=== PATIENT | female | born 1940 | race Caucasian/White ===

== ENCOUNTER 2020-06-06 20:04 | Inpatient (IN) | payer MEDICARE, SELFPAY ==
--- NOTE | ~2020-06-06 | XR_ITS ---
XR shoulder LT min 2V DATE: 06/07/2020 01:28 INDICATION: Left shoulder pain following fall, injury TECHNIQUE: 5 views COMPARISON: None FINDINGS: There is glenohumeral joint space narrowing and very prominent hypertrophic spurring of the left humeral head. There is an approximately 1 cm loose body overlying the left shoulder inferior gl enohumeral area. There is degenerative change including joint space narrowing and spurring at the left acromioclavicul ar joint. No fracture or dislocation of the left elbow. No periosteal reaction or bone destruction. IMPRESSION: Severe left glenohumeral joint osteoarthritis with very prominent spurring of the left hu meral head Degenerative change at the left glenohumeral joint Reviewed, dictated and finalized at location A. IMPRESSION: Severe left glenohumeral joint osteoarthritis with very prominent s purring of the left humeral head Degenerative change at the left glenohumeral joint
--- NOTE | ~2020-06-06 | XR_ITS ---
EXAMINATION: XR hip LT 2V w AP pelvis INDICATION: Left hip pain TECHNIQUE: AP view the pelvis and two views of the left hip are obtained. COMPARISON: 04/20/2018 FINDINGS: Bone alignment is normal. There is no fracture. Moderate bilateral hip osteoarthritis is un changed. Phleboliths are noted in the pelvis. There are at least moderate lumbar spondylosis. IMPRESSION: 1. No acute osseous abnormality. Reviewed, dictated and finalized at location A.
--- NOTE | ~2020-06-06 | US_ITS ---
US venous doppler [facility] DATE: 06/07/2020 07:56 INDICATION: Left leg pain, edema. Elevated d-dimer. TECHNIQUE: Real-time and color flow imaging and Doppler analysis of the veins of the left lower extre mity COMPARISON: None FINDINGS: The left greater saphenous vein is patent. There is spontaneous and phasic flow and normal augmentation and color flow signal and normal compression of the veins of the left leg. IMPRESSION: No evidence of deep venous thrombosis of left lower extremity Reviewed, dictated and finalized at Location A. Reviewed, dictated and finalized at location A.
--- NOTE | ~2020-06-06 | XR_ITS ---
XR chest 1V portable 06/09/2020 06:30 Indication: Respiratory failure Procedure: AP portable chest Comparison: Comparison to multiple prior studies sequentially, with oldest reviewed study dated 04/14. Findings: Cardiomegaly. Large hiatal hernia. Left basilar airspace disease. Small left pleural effusi on. No pneumothorax. No significant edema. No acute osseous abnormality. Impression: 1: Left basilar airspace disease which may represent atelectasis or developing pneumonia. 2: Small left pleural effusion. 3: Cardiomegaly. 4: Large hiatal hernia. Reviewed, dictated and finalized at location A. Impression: 1: Left basilar airspace disease which may represent atelectasis or developing pneumonia. 2: Small left pleural effusion. 3: Cardiomegaly. 4: Large hiatal hernia.
--- NOTE | ~2020-06-06 | XR_ITS ---
EXAMINATION: XR chest 1V portable DATE: 06/07/2020 08:44 INDICATION: Shortness of breath. TECHNIQUE: A single frontal view of the chest was obtained. COMPARISON: Chest single view 06/06/2020, chest CT 06/06/2020 FINDINGS: There is a small left pleural effusion. There are airspace opacities in the lower lung zone s. No pneumothorax. Cardiomegaly is noted. There is a large hiatal hernia. IMPRESSION: 1. Airspace opacities in the lower lung zones with slight worsening on the right, consistent with ate lectasis or less likely pneumonia. 2. Stable small left pleural effusion. 3. Cardiomegaly. 4. Large hiatal hernia. Reviewed, dictated and finalized at location D. IMPRESSION: 1. Airspace opacities in the lower lung zones with slight worsening on the righ t, consistent with atelectasis or less likely pneumonia. 2. Stable small left pleural effusion. 3. Cardiomegaly. 4. Large hiatal hernia.
--- NOTE | ~2020-06-06 | XR_ITS ---
EXAMINATION: XR ankle LT min 3V DATE: 06/06/2020 21:26 INDICATION: Left ankle pain TECHNIQUE: Anteroposterior, lateral, mortise, and additional oblique view of the ankle were obtained. COMPARISON: 06/08/2017 FINDINGS: There is diffuse soft tissue swelling of ankle. Bone alignment is normal. No fracture is id entified. A plantar calcaneal enthesophyte is noted. IMPRESSION: 1. Ankle soft tissue swelling without acute osseous abnormality. Reviewed, dictated and finalized at location A.
--- NOTE | ~2020-06-06 | XR_ITS ---
EXAMINATION: XR chest 1V portable DATE: 06/12/2020 05:27 INDICATION: Respiratory failure. TECHNIQUE: A single frontal view of the chest was obtained. COMPARISON: Chest single view 06/11/2020, chest CT 06/06/2020 FINDINGS: There are airspace opacities at the lung bases. There is a small left pleural effusion. No pneumothorax. Cardiomegaly is noted. There is a large hiatal hernia. IMPRESSION: 1. Stable small left pleural effusion. 2. Airspace opacities at the lung bases with slight worsening on the right, consistent with atelectas is or less likely pneumonia. 3. Cardiomegaly. 4. Large hiatal hernia. Reviewed, dictated and finalized at location A. IMPRESSION: 1. Stable small left pleural effusion. 2. Airspace opacities at the lung bases with slight worsening on the right, con sistent with atelectasis or less likely pneumonia. 3. Cardiomegaly. 4. Large hiatal hernia.
--- NOTE | ~2020-06-06 | XR_ITS ---
XR chest 1V portable 06/08/2020 05:47 Indication: Respiratory failure Procedure: AP portable chest Comparison: Comparison to multiple prior studies sequentially, with oldest reviewed study dated 04/18. Findings: Persistent left basilar airspace disease. Small pleural effusions. Cardiomegaly. No edema o r pneumothorax. There are advanced degenerative changes of the shoulders. No acute osseous abnormalit y. Impression: 1: Left basilar airspace disease may represent pneumonia and/or atelectasis. Findings have progressed since 06/06/2020. 2: Small pleural effusions. 3: Cardiomegaly. Reviewed, dictated and finalized at location A. Impression: 1: Left basilar airspace disease may represent pneumonia and/or atelectasis. Fi ndings have progressed since 06/06/2020. 2: Small pleural effusions. 3: Cardiomegaly.
--- NOTE | ~2020-06-06 | CT_ITS ---
EXAMINATION: CTA chest PE protocol DATE: 06/06/2020 22:30 INDICATION: Chest pain and shortness of breath TECHNIQUE: Computed tomography angiography (CTA) of the chest was performed with 100 mL Omnipaque-350 intravenous contrast timed to evaluate the pulmonary arteries. Coronal maximum intensity projection 3D-reconstructions were created by the technologist. The dose-length product (DLP) was 1046.86 mGy-cm . Automated exposure control and iterative reconstruction technique were employed. COMPARISON: 04/18/2018 FINDINGS: The pulmonary arteries are well-opacified. No pulmonary embolism is identified. There are s mall pleural effusions with passive atelectasis in the lower lobes. No pneumothorax is identified. Ca rdiomegaly is noted. There is a moderate-sized hiatal hernia. A chronic T12 compression fracture is n oted. No pathologically enlarged thoracic lymph nodes are identified. There is advanced osteoarthriti s of the shoulders. A chronic 2 cm fluid density of the subcutaneous tissues in the left upper back h as the appearance of a sebaceous cyst. IMPRESSION: 1. No pulmonary embolism. 2. Cardiomegaly. 3. Small pleural effusions with passive atelectasis in the lower lobes. Reviewed, dictated and finalized at location A.
--- NOTE | ~2020-06-06 | XR_ITS ---
EXAMINATION: XR chest 1V portable INDICATION: Shortness of breath TECHNIQUE: Portable AP chest at 2058 hours COMPARISON: 04/14/2019 FINDINGS: There is stable cardiomegaly. No pleural effusion or pneumothorax is identified. There is c hronic mild atelectasis. IMPRESSION: 1. Stable cardiomegaly. Reviewed, dictated and finalized at location A. IMPRESSION: 1. Stable cardiomegaly.
--- NOTE | ~2020-06-06 | XR_ITS ---
EXAMINATION: XR knee LT min 4V DATE: 06/06/2020 21:26 INDICATION: Left knee pain TECHNIQUE: Four views of the left knee were obtained. COMPARISON: 04/18/2018 FINDINGS: Alignment is normal. No fracture or osteochondral lesion. There is moderate tricompartmenta l osteoarthritis. A small chronic knee joint effusion is present. Soft tissues are unremarkable. IMPRESSION: 1. No acute osseous abnormality. Reviewed, dictated and finalized at location A.
--- NOTE | ~2020-06-06 | US_ITS ---
EXAMINATION: US right upper quadrant DATE: 06/11/2020 14:06 INDICATION: Nausea. TECHNIQUE: Multiple grayscale and Doppler ultrasound images of the abdomen were obtained. COMPARISON: CT abdomen and pelvis 04/18/2018 FINDINGS: The visualized portion of the head of the pancreas is normal. The liver is normal without f ocal lesion. No liver surface nodularity. There is normal flow in main portal vein. The gallbladder i s absent. The common duct is normal and measures 3 mm. IMPRESSION: 1. Normal right upper quadrant ultrasound status post cholecystectomy. Reviewed, dictated and finalized at location A.
--- NOTE | ~2020-06-06 | XR_ITS ---
EXAMINATION: XR foot LT 2V DATE: 06/11/2020 14:07 INDICATION: Distal left foot pain post fall TECHNIQUE: Dorsoplantar and lateral views of the left foot were obtained. COMPARISON: 07/08/2017 FINDINGS: The region of the previous noted fracture at the base of the fifth metatarsal is obscured on the dors al plantar projection but the plantar aspect of the previously ununited fracture can be seen on the l ateral projection and appears to have healed in essentially anatomic alignment. No new fractures or m alalignment identified. Mild osteoarthritis at the first and fifth metatarsophalangeal and a few tars al metatarsal and distal interphalangeal joints. Small plantar calcaneal spur. Diffuse soft tissue sw elling about the left ankle. IMPRESSION: 1. Mild polyarticular osteoarthritis in the mid and forefoot. No acute osseous abnormality. Reviewed, dictated and finalized at location B.
--- NOTE | ~2020-06-06 | XR_ITS ---
EXAMINATION: XR chest 1V portable DATE: 06/10/2020 05:45 INDICATION: Respiratory failure. TECHNIQUE: A single frontal view of the chest was obtained. COMPARISON: Chest single view 06/09/2020, chest CT 06/06/2020 FINDINGS: There are small pleural effusions. There are airspace opacities at the lung bases. No pneum othorax. Cardiomegaly is noted. There is a large hiatal hernia. Calcified right hilar lymph nodes are consistent with old granulomatous disease. IMPRESSION: 1. Stable small pleural effusions. 2. Stable mild airspace opacities at the lung bases, likely atelectasis. 3. Large hiatal hernia. 4. Cardiomegaly. Reviewed, dictated and finalized at location A.
--- NOTE | ~2020-06-06 | CT_ITS ---
EXAMINATION: CT brain wo con INDICATION: Increasing weakness, fall COMPARISON: 04/18/2018 TECHNIQUE: Standard unenhanced head CT. The dose-length product (DLP) was 605.33 mGy-cm. The mA was a djusted according to patient size. Iterative reconstruction technique was employed. FINDINGS: There is no acute intraparenchymal hemorrhage. No evidence of mass lesion. No evidence of a cute infarction. There is mild periventricular and subcortical hypodensity probably related to small vessel ischemic disease. There is mild prominence of the sulci and ventricles related to cerebral atr ophy. Intracranial calcified cerebral atherosclerosis is noted. There are no extra-axial collections. There is no mass effect or midline shift. There are likely changes of cataract surgery on the right. There is mild mucosal thickening of the paranasal sinuses. IMPRESSION: 1. No acute intracranial abnormality. 2. Age related findings. Reviewed, dictated and finalized at location A.
--- NOTE | ~2020-06-06 | XR_ITS ---
EXAMINATION: XR chest 1V portable DATE: 06/11/2020 06:12 INDICATION: Respiratory failure. TECHNIQUE: A single frontal view of the chest was obtained. COMPARISON: Chest single view 06/10/2020 FINDINGS: There are airspace opacities at left lung base. There is a small left pleural effusion. No pneumothorax. There is a large hiatal hernia. Cardiomegaly is noted. Calcified right hilar lymph node s are consistent with old granulomatous disease. IMPRESSION: 1. Stable small left pleural effusion. 2. Stable airspace opacities at left lung base, likely atelectasis. 3. Large hiatal hernia. 4. Cardiomegaly. Reviewed, dictated and finalized at location A.
[2020-06-06 20:00] VITALS: BP 159/74; PULSE 58; RESP 17; TEMP 37.2; O2SAT 99
--- NOTE | 2020-06-06 20:10 | ECG_ITS ---
Measurements Intervals [place] Rate: 58 P: -50 MN: 133 QRS: -18 QRSD: 140 T: 78 QT: 440 QTc: 434 Interpretive Statements SINUS BRADYCARDIA ATRIAL PREMATURE COMPLEXES LEFT BUNDLE BRANCH BLOCK BASELINE ARTIFACT- I, II, AVR, V1-V2, V6 ABNORMAL ECG Electronically Signed On 06-07-2020 6:48:58 CDT by Rick Zapata D.O.
[2020-06-06 20:11] VITALS: PULSE 58
--- NOTE | 2020-06-06 20:11 | ED.SOB ---
HPI - SOB/Dyspnea General Chief Complaint: Weakness Stated Complaint: sob, fall Time Seen by Provider: 06/06/20 20:10 Source: patient, family and EMS Mode of arrival: EMS Limitations: no limitations History of Present Illness HPI Narrative: Patient is a 80-year-old female with a history of COPD, on chronic 2 L of oxygen, [place], hypertension, fibromyalgia, arthritis and chronic pain who presents for evaluation of myalgias, cough, subjective fever, nausea as well as burning with urination. Patient denies any dawit abdominal pain. She has been able to tolerate oral intake today. She reports that she fell approximately 8 days ago due to her weakness and she believes she twisted her ankle and has since had left-sided ankle swelling and left knee pain. Patient also reports intermittent chest pain and increased shortness of breath as well as cough with sputum production. Patient denies any recent medication changes. Chest pain usually is shorter lasting, at times described as pressure over the chest. At times it is sharp in nature. She reports that she always has chronic pain, and has a component of back pain as well. She denies jaw pain. No new shoulder pain. No loss of sense of taste or smell. No recent sick exposures or sick contacts. 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 Related Data Allergies Allergy/AdvReac Type Severity Reaction Status Date / Time AMITRIPTYLINE HCL Allergy Unknown Uncoded 04/14/19 13:48 CHLORDIAZEPOXIDE HCL Allergy Unknown Uncoded 04/14/19 13:48 Review of Systems Review of Systems: Narrative: CONSTITUTIONAL: Reports subjective fever and chills ENT: Denies rhinorrhea, congestion, sore throat, or otalgia. CARDIOVASCULAR: Reports intermittent chest pain and left lower extremity edema RESPIRATORY: Reports cough and shortness of breath GASTROINTESTINAL: Denies abdominal pain, reports nausea GENITOURINARY: Reports dysuria SKIN: Denies rash or itching. MUSCULOSKELETAL: Denies back pain, reports left ankle pain, left knee pain, left hip pain NEUROLOGIC: Denies headache, numbness,, reports diffuse weakness PSYCHIATRIC: History of depression [facility] Past Medical History Medical History Anxiety Chronic pain COPD (chronic obstructive pulmonary disease) Depression Diabetes Fibromyalgia Heart attack Hyperlipidemia Hypertension Pneumonia Recurrent urinary tract infection Social History Social History (Updated 10/08/20 @ 20:38 by Aimee Benoit MD) Smoking status: Current every day smoker Tobacco type: cigarettes Substance use: never Living arrangements: with family Gender identity (if verbalized by the patient): Female Exam Narrative: Exam Narrative: GENERAL: Awake, alert, conversant HEAD: Normocephalic, atraumatic. EYES: PERRLA and EOMI. ENT: Nares clear, no rhinorrhea or epistaxis. Mucous membranes moist. NECK: Supple. CHEST: Nasal cannula in place, no respiratory distress, breathing even and non labored HEART: Regular rate, sinus rhythm ABDOMEN:Non distended, non tender EXTREMITIES: Normal range of motion. Left ankle swelling, tenderness at the medial lateral malleolus of the left ankle. Mild ecchymoses. Extremities warm and well-perfused, DP pulse 2+. Intact distal sensation. Pain with palpation of the left patella. Pain with palpation of the left hip. No deformity noted. No calf tenderness. SKIN: Warm, dry, no rash. Scattered ecchymoses upper and lower extremities. NEURO:No focal deficits. Alert and oriented x3 Course Vital Signs Vital signs: Vital Signs Temperature 37.2 C 06/06/20 20:00 Pulse Rate 58 L 06/06/20 20:00 Respiratory Rate 17 06/06/20 20:00 Blood Pressure 159/74 H 06/06/20 20:00 Pulse Oximetry 99 06/06/20 20:00 Temperature 37.2 C 06/06/20 20:00 Pulse Rate 73 06/06/20 22:40 Respiratory Rate 18 06/06/20 22:40 Blood Pressure 130/108
--- NOTE | 2020-06-06 20:13 | PC.NURSE ---
BS 80
[2020-06-06 20:15] LABS: Glucose Point of Care 80 (65-105)
[2020-06-06 20:34] LABS: Basophils Percent Auto 0.2 % (0.2-1.2); Eosinophils Absolute Auto 0.2 K/mm3 (0-0.3); Eosinophils Percent Auto 3.1 % (0-4.4); Hematocrit 27.9 % (37.0-47.0); Hemoglobin 8.2 g/dL (12.0-15.0); Immature Granulocyte Absolute 0.04 K/mm3 (0.00-0.031); Immature Granulocyte Percent A 0.6 % (0-0.5); Lymphocytes Absolute Auto 0.68 K/mm3 (0.9-3.2); Mean Corpuscular HGB Conc 29.4 g/dl (32-36); Mean Corpuscular Hemoglobin 28.5 pg (26-34); Mean Corpuscular Volume 96.9 fl (80-100); Mean Platelet Volume 12.4 fl (7.4-10.4); Monocytes Absolute Auto 0.5 K/mm3 (0.1-0.6); Monocytes Percent Auto 8.2 % (2.6-8.5); Neutrophils Absolute Auto 4.8 K/mm3 (1.3-6.7); Neutrophils Percent Auto 76.9 % (45.5-73.1); Platelet Count Result 244 k/mm3 (150-375); Red Blood Count 2.88 M/mm3 (4.2-5.4); Red Cell Distribution Width 16.4 % (11.5-14.5); White Blood Count 6.2 K/mm3 (4.5-10.0)
[2020-06-06 20:42] LABS: Hypochromasia 2+ (NORMAL); Ovalocytes 1+ (NORMAL); Platelet Estimate Adequate (Adequate); Stomatocytes 1+ (NORMAL)
[2020-06-06 20:43] LABS: Prothrombin Time 12.9 Seconds (11.1-14.7)
[2020-06-06 20:44] LABS: Partial Thromboplastin Time 26.5 SECONDS (22.3-36.8)
[2020-06-06] MEDS: ONDANSETRON INJ 4 MG/2 ML VIAL IV PUSH (21:19)
[2020-06-06] MEDS: MORPHINE SULFATE (*CRX) 4 MG/ML INJ IV PUSH (21:19)
[2020-06-06 21:20] VITALS: BP 174/106; PULSE 61; RESP 22; O2SAT 100
[2020-06-06] MEDS: SODIUM CHLORIDE 0.9% IV 1,000 ML 999 ML IV CONT (21:20)
[2020-06-06 21:58] LABS: D Dimer 0.75 ug/mL (<0.48)
[2020-06-06 22:12] LABS: Anion Gap 14.99999 mmol/L (8-16); Blood Urea Nitrogen 47 mg/dL (7-17); Carbon Dioxide > 40 mmol/L (22-30); Chloride 92 mmol/L (98-107); Estimated CRCL calculation 48 ml/min; Estimated Glomerular Filt Rate 40; Glucose 41 mg/dL (65-105); Potassium 3.8 mmol/L (3.4-5.0); Sodium 147 mmol/L (137-145)
[2020-06-06 22:12] LABS: Add Urine Microscopic? YES; Appearance Urine Clear (Clear); Bacteria Urine Trace /hpf; Bilirubin Urine Negative (Negative); Color Urine Yellow (Yellow); Glucose Urine UA Negative (Negative); Hyaline Casts Urine 30-49 /lpf; Ketones Urine Negative (Negative); Leukocyte Esterase Ur Trace LEU/UL (Negative); Mucus Urine Rare /lpf; Nitrate Urine Negative (Negative); Protein Urine Negative (Negative); RBC Urine 0-2 /hpf (0-2); Renal Epithelial Cells Urine Rare /hpf (None Seen); Specific Grav Ur 1.014 (1.001-1.035); Squamous Epithelial Cell Urine Rare /hpf (Few); Urobilinogen Urine Negative mg/dL (<2.0)
[2020-06-06 22:18] LABS: Blood Urine Negative (Negative)
[2020-06-06 22:40] VITALS: BP 130/108; PULSE 73; RESP 18; O2SAT 97
[2020-06-06 23:07] LABS: Glucose Point of Care 90 (65-105)
[2020-06-07] VITALS (29 sets, daily range): BP systolic 126–155; BP diastolic 61–82; PULSE 55–130; RESP 17–28; TEMP 35.9–37.1; O2SAT 90–100; BMI 41.6
[2020-06-07 00:07] LABS: NT Pro B Type Natriuretic Pept 1880 PG/ML (5-100)
[2020-06-07] MEDS: FUROSEMIDE INJ 40 MG/4 ML VIAL 20 MG IV PUSH (00:21)
[2020-06-07 00:27] LABS: Glucose Point of Care 143 (65-105)
[2020-06-07] MEDS: ASPIRIN 81 MG CHEWABLE TABLET 324 MG PO (00:54)
--- NOTE | 2020-06-07 00:58 | PM.IMHP ---
H&P: HPI History of Present Illness Date/Time: 06/07/20 00:58 Chief complaint: Chest pain, elevated troponin, heart failure Narrative: This is a 80 year old morbidly obese female with a history of COPD, on 3L of chronic home oxygen, CAD s/p [place], s/p stents, HTN, CKD stage III, Fibromyalgia among other diagnosis who presented to the hospital with complaints of increased exertional shortness of breath, dry sporadic cough, LE swelling and burning urination. She reports that she fell on her left side about 1 week ago when her left leg gave out on her. Since then she has had left ankle pain. The patient also reports having intermittent chest pain that seems to be exertional in nature as it improves with rest. She has been having anginal symptoms for months and often takes nitroglycerin for it. She describes her chest pain pressure like. The patient last had stents placed in 1998. She has chronic lower extremity swelling which she believes has worsened. On further questioning she denies any significant fevers today, abdominal pain, diarrhea, nausea, vomiting, rectal bleeding, black stools or focal neurological symptoms. The patient was evaluated in the ER tonight and routine labs were obtained. She was found to have a mildly elevated troponin. EKG demonstrated a LBBB. ER provider consulted Cardiology. Review of Systems Review of Systems: All systems reviewed & are unremarkable except as noted in HPI and below PMFSH Past Medical History Medical History Anxiety Chronic pain COPD (chronic obstructive pulmonary disease) Depression Diabetes Fibromyalgia Heart attack Hyperlipidemia Hypertension Pneumonia Recurrent urinary tract infection Surgical History Surgical History History of coronary artery stent placement Family History Family History Mother Acute myocardial infarction Social History Social History Smoking status: Unknown if ever smoked Tobacco type: cigarettes Alcohol intake: never Substance use: never Living arrangements: with family Gender identity (if verbalized by the patient): Female Spiritual care concerns: No Meds Home Medications and Allergies Home Medications Medication Instructions Recorded Confirmed Type albuterol sulfate [ProAir HFA] 2 puff INHALATION DIRECTED PRN 06/07/20 06/07/20 History amlodipine 5 mg PO DAILY 06/07/20 06/07/20 History atorvastatin 80 mg PO DAILY 06/07/20 06/07/20 History biotin 1 mg PO DAILY 06/07/20 06/07/20 History calcitriol 0.25 mcg PO DAILY 06/07/20 06/07/20 History cephalexin 250 mg PO BID 06/07/20 06/07/20 History [id number]-oleic-dha [Adult 1 tablet PO DAILY 06/07/20 06/07/20 History [place] Plus DHA] cranberry extract [cranberry] 250 mg PO DAILY 06/07/20 06/07/20 History fenofibrate nanocrystallized 145 mg PO DAILY 06/07/20 06/07/20 History insulin glargine [Lantus Solostar 26 unit SUBCUT DAILY 06/07/20 06/07/20 History U-100 Insulin] insulin lispro [Humalog KwikPen 5 unit SUBCUT TIDWMEAL 06/07/20 06/07/20 History Insulin] isosorbide mononitrate 30 mg PO DAILY 06/07/20 06/07/20 History pantoprazole 40 mg PO DAILY 06/07/20 06/07/20 History pregabalin 200 mg PO DAILY 06/07/20 06/07/20 History tizanidine 4 mg PO DAILY 06/07/20 06/07/20 History torsemide 20 mg PO DAILY 06/07/20 06/07/20 History Allergies Allergy/AdvReac Type Severity Reaction Status Date / Time AMITRIPTYLINE HCL Allergy Unknown Uncoded 04/14/19 13:48 CHLORDIAZEPOXIDE HCL Allergy Unknown Uncoded 04/14/19 13:48 Vital Signs Vital Signs - 24 hr 06/06/20 20:00 06/06/20 20:11 06/06/20 21:20 Temperature 37.2 C Pulse Rate 58 L 58 L 61 Respiratory Rate 17 22 H Blood Pressure 159/74 H 174/106 H Pulse Oximetry 99 100 06/06/20 22:40 06/07/20
--- NOTE | 2020-06-07 03:51 | ADMGEN ---
This patient, Chandni Vicente, was admitted to IMU Room 211-01. Patient/family oriented to hospital policies and general routines including ID bracelet, bed and alarms, visiting hours, pain management, procedures, bathroom and other care routines, personal items, smoking policy, room service/diet, and visiting hours. Valuables list has been completed. Information on how to activate the Rapid Response Team has been discussed. Patient/Family are encouraged to report perceived risks to care and to ask questions if they do not understand what they are told or what they should do.
[2020-06-07 03:52] LABS: Glucose Point of Care 104 (65-105)
[2020-06-07] MEDS: ALBUTEROL SULFATE NEB 2.5 MG/0.5 ML INH 5 MG INHALATION ×4 (04:30→20:23)
[2020-06-07 06:36] LABS: Troponin I 0.063 ng/mL (0.000-0.034)
--- NOTE | 2020-06-07 07:09 | ECHO_ITS ---
Patient Info Name: Chandni Vicente Age: 80 years : 1940 Gender: Female Ht: 64 in Wt: 243 lbs BSA: 2.29 m2 HR: 70 bpm BP: 152 / 67 mmHg Heart Rhythm: Sinus Rhythm Technical Quality: Good Exam Date: 06/07/2020 10:15 AM Exam Location: [facility] Patient Status: Inpatient Admit Date: 06/07/2020 Staff Ordering Physician: Kaylene Ham MD (gilmer/john) Slasher Hand: Robbin Kessler RDCS Attending Provider: Theron Cho MD Exam Type: CA echo doppler color flow Study Info Indications R06.02 - Shortness of breath Complete two-dimensional, color flow and Doppler transthoracic echocardiogram is performed. History/Risk Factors Shortness of breath, CHF; COPD, CAD/VA, DM, HTN, CKD3, edema, trops. Summary 1. Complete two-dimensional, color flow and Doppler transthoracic echocardiogram is performed. 2. Left ventricular systolic function is normal, estimated at 55-60%. 3. Left atrial chamber dimension is mildly enlarged. 4. E/e' 16.7 is elevated consistent with elevated left atrial filling pressure. 5. The aortic valve is not well visualized but appears calcified. There is moderate aortic valve stenosis. Aortic valve max velocity 3.3 m/s, Mean gradient 18, valve area 1.6. 6. Moderate pulmonary hypertension, estimated pulmonary arterial systolic pressure is 60mmHg. 7. Dilated inferior vena cava (Patient on Bipap). Left Ventricle Left ventricular chamber dimension is normal. Left ventricular systolic function is normal, estimated at 55-60%. There is mildly increased left ventricular wall thickness. The left ventricular diastolic function is grade II diastolic dysfunction. E/e' 16.7 is elevated consistent with elevated left atrial filling pressure. Right Ventricle Right ventricular chamber dimension is normal. Right ventricular systolic function is normal. Left Atria Left atrial chamber dimension is mildly enlarged. Right Atria Right atrial chamber dimension is normal. Aortic Valve The aortic valve is not well visualized but appears calcified. There is moderate aortic valve stenosis. Aortic valve max velocity 3.3 m/s, Mean gradient 18, valve area 1.6. There is no aortic valve regurgitation. Pulmonic Valve The pulmonic valve is normal. There is no pulmonic valve stenosis. There is no pulmonic regurgitation. Mitral Valve The mitral valve has normal leaflets. There is no mitral valve stenosis. There is no mitral valve regurgitation. Tricuspid Valve The tricuspid valve leaflets are normal. There is trace tricuspid valve regurgitation. Moderate pulmonary hypertension, estimated pulmonary arterial systolic pressure is 60mmHg. Pericardium/Pleural The pericardium appears normal. There is no pericardial effusion. Pericardium is normal in appearance with no evidence for significant pericardial effusion. Inferior Vena Cava Dilated inferior vena cava (Patient on Bipap). Aorta The aortic root size at the sinus of Valsalva is normal. The prox ascending aorta size is normal. Left Ventricular Outflow Tract Name Value Normal LVOT 2D LVOT Diameter 2.0 cm LVOT Doppler L
[2020-06-07 07:21] LABS: Troponin I 0.049 ng/mL (0.000-0.034)
--- NOTE | 2020-06-07 07:56 | PM.CNCAR ---
Assessment and Plan Assessment and plan (1) Acute and chronic respiratory failure with hypercapnia: Code(s): J96.22 - Acute and chronic respiratory failure with hypercapnia Status: Acute Assessment and Plan: Multifactorial with h/o COPD, obesity, diastolic heart failure, likely RONAL Pco2 is 100 with AMS and tremors. Start BiPAP Will give lasix state now. Then start Lasix 40 mg IV BID (on Torsemide at home) Her trop is borderline elevated peaked at 0.06 in the setting of acute CHF and CKD. I doubt ACS. Will check 2D echo to assess LV function, PA pressure and rule out valvular disease She has history of PCI in the past. Unclear when. 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 Resume ASA, statin and antihypertensives (2) Elevated troponin: Code(s): R77.8 - Other specified abnormalities of plasma proteins Status: Acute Assessment and Plan: Borderline 0.06. EKG with LBBB. Need to get records. Follow 2D echo. She may eventually need ischemic evaluation in out patient settings if has not be done recently once stable and better compensated from CHF standpoint (3) Chest pain: Qualifiers: Chest pain type: unspecified Qualified Code(s): R07.9 - Chest pain, unspecified Code(s): R07.9 - Chest pain, unspecified Status: Acute Assessment and Plan: Resume home dose of Imdue and other antihypertensives (4) Heart failure: Qualifiers: Heart failure chronicity: unspecified Heart failure type: unspecified Qualified Code(s): I50.9 - Heart failure, unspecified Code(s): I50.9 - Heart failure, unspecified Status: Acute Assessment and Plan: Check 2D echo. Start Lasix (on Torsedmide at home) History of Present Illness History of Present Illness Consult date/time: 06/07/20 07:56 80 y/o female with h/o of oxygen dependent COPD (3 liters), CAD, HTN, DM, CHF, CKD stage III and obesity who presents with generalized body pain, chest pain and shortness of breath. At that time I walked to her room she was minimally responsive with generalized tremors. She has just returned from Ultrasound. Per nursing staff she was A&O X3 this am. Her O2 sat was initially in the 80s corrected to 99 with increasing her oxygen. Rapid response was called. Stat ABC showed her Ph 7.2 with Pco2 of 101. Bipap is being initiated. I ordered one time dose of Lasix IV She is not able to provide any history at this moment. Per ER note she had recent fall. She had back pain since. She also reported chest pain in ER with on and off nitro reponsive chest pain for sometime. She has history of stent. No records available at this time. Unclear when and where PCI was done. It was documented in ER that she is followed by [facility] subgrade roller operator. In ER she had CT chest, no PE, but has cardiomegaly and small pleural effusion. EKG: sinus rhythm/jv with PACs. LBBB Labs: hg 8.2, Cr 1.3, Trop 0.06-->0.04, NT pro BNP 1880 Unable to obtain social history Reason For Visit: Chest pain, elevated troponin, heart failure Review of Systems Review of Systems: ROS unobtainable: Yes unobtainable due to mental status Musculoskeletal: Musculoskeletal: Reports back pain PMFSH Past Medical History Medical History (Updated 06/07/20 @ 08:54 by Kaylene Ham MD) Anxiety Chronic pain COPD (chronic obstructive pulmonary disease) Depression Diabetes Fibromyalgia Heart attack Hyperlipidemia Hypertension Pneumonia Recurrent urinary tract infection Surgical History Surgical History (Updated 06/07/20 @ 01:13 by Theron Cho MD) History of coronary artery stent placement Family History Family History Mother Acute myocardial infarction Social History Social History Smoking status: Unknown if ever smoked Tobacco type: cigarettes Al
[2020-06-07 08:33] LABS: Alveolar/Arterial O2 Gradient 50.3 mmHg; Base Excess ABG 18.2 mEq/l (+/-2.0); Fractional Inspired Oxygen 32 %; HCO3 ABG 48.1 mEq/l (22.0-26.0); Oxygen Content ABG 11.9 %vol (16.0-22.0); Oxyhemoglobin 87.5 % THb (90.0-100.0); PO2 FiO2 Ratio Arterial Blood 1.84 %; Total Hemoglobin 9.6 g/dL (12.0-18.0); pH ABG 7.293 (7.350-7.450)
[2020-06-07 08:34] LABS: Device NASAL CANNULA; Modified Allen's Test Pass; Oxygen Saturation ABG 85.2 % (95.0-100.0); PCO2 ABG 101.6 mmHg (35.0-45.0); Site Drawn RIGHT RADIAL
[2020-06-07 08:41] LABS: Glucose Point of Care 86 (65-105)
[2020-06-07 08:58] LABS: Anion Gap 14.99999 mmol/L (8-16); Blood Urea Nitrogen 44 mg/dL (7-17); Carbon Dioxide > 40 mmol/L (22-30); Chloride 91 mmol/L (98-107); Estimated CRCL calculation 42 ml/min; Estimated Glomerular Filt Rate 43; Glucose 90 mg/dL (65-105); Potassium 4.2 mmol/L (3.4-5.0); Sodium 146 mmol/L (137-145)
[2020-06-07] MEDS: FUROSEMIDE INJ 40 MG/4 ML VIAL IV PUSH ×2 (09:00→17:17)
[2020-06-07 09:10] LABS: Troponin I 0.048 ng/mL (0.000-0.034)
--- NOTE | 2020-06-07 09:44 | PC.NURSE ---
Upon entering room patient was shaking and lethargic, Dr. Marquez was in room, called rapid response. BS was 86. Stat ABG's were done, STAT EKG, STAT Troponins, Patient put on continuos bipap by respiratory.
[2020-06-07 10:13] LABS: Alveolar/Arterial O2 Gradient 47.9 mmHg; Base Excess ABG 20.3 mEq/l (+/-2.0); Fractional Inspired Oxygen 30 %; HCO3 ABG 50.4 mEq/l (22.0-26.0); Oxygen Content ABG 9.7 %vol (16.0-22.0); Oxyhemoglobin 72.8 % THb (90.0-100.0); PO2 FiO2 Ratio Arterial Blood 1.38 %; Total Hemoglobin 9.5 g/dL (12.0-18.0); pH ABG 7.295 (7.350-7.450)
[2020-06-07 10:18] LABS: Modified Allen's Test Pass; Oxygen Saturation ABG 66.8 % (95.0-100.0); PO2 ABG 41.5 mmHg (80.0-100.0); Site Drawn LEFT RADIAL
[2020-06-07 10:19] LABS: Device BIPAP
[2020-06-07 10:20] LABS: Expiratory Pressure 6 cmH2O; Inspiratory Pressure 16 cmH2O
[2020-06-07 12:21] LABS: Glucose Point of Care 93 (65-105)
[2020-06-07 13:11] LABS: Alveolar/Arterial O2 Gradient 33.2 mmHg; Base Excess ABG 19.6 mEq/l (+/-2.0); Carboxyhemoglobin 0.1 % THb (0-2.0); Fractional Inspired Oxygen 30 %; HCO3 ABG 48.8 mEq/l (22.0-26.0); Methemoglobin ABG 0.2 %THb (0-1.5); Oxygen Content ABG 12.1 %vol (16.0-22.0); Oxygen Saturation ABG 91.1 % (95.0-100.0); Oxyhemoglobin 91.3 % THb (90.0-100.0); PO2 ABG 69.1 mmHg (80.0-100.0); Reduced Hemoglobin 8.4 %THb (0-5.0); Total Hemoglobin 9.4 g/dL (12.0-18.0); pH ABG 7.329 (7.350-7.450)
[2020-06-07 13:17] LABS: Device BIPAP; Modified Allen's Test Pass; Site Drawn RIGHT FEMORAL
[2020-06-07 13:19] LABS: Expiratory Pressure 6 cmH2O; Inspiratory Pressure 20 cmH2O
--- NOTE | 2020-06-07 13:34 | WPDCNINT ---
Assessment and Plan Assessment and plan (1) Acute and chronic respiratory failure with hypercapnia: Code(s): J96.22 - Acute and chronic respiratory failure with hypercapnia Status: Acute Assessment and Plan: Acute on chronic Respiratory failure which is multifactorial and secondary to congestive heart failure, COPD, obesity hypoventilation syndrome, . I saw patient this morning on step-down unit and adjusted the BiPAP to 20/6 and dropped the FiO2 down to 30% repeat ABG has improved patient is alert oriented x3 and follows commands Continue noninvasive positive-pressure ventilation support to prevent hypoxemia/hypercarbia and end organ damage. patient needs to be closely monitor in ICU and may need intubation Bronchodilators lower extremity Dopplers were negative for DVT CTA chest showed no PE and showed cardiomegaly with small effusions and atelectasis (2) CKD (chronic kidney disease): Code(s): N18.9 - Chronic kidney disease, unspecified Status: Acute Assessment and Plan: creatinine appears to be at baseline monitor electrolytes and urine output (3) Anemia: Qualifiers: Anemia type: other cause Other causes of anemia: other cause, not classified Qualified Code(s): D64.89 - Other specified anemias Code(s): D64.9 - Anemia, unspecified Status: Acute Assessment and Plan: transfusion not indicated at this time monitor (4) Elevated troponin: Code(s): R77.8 - Other specified abnormalities of plasma proteins Status: Acute Assessment and Plan: Patient seen by Cardiology aspirin statin echo (5) CHF (congestive heart failure): Code(s): I50.9 - Heart failure, unspecified Status: Acute Assessment and Plan: Lasix IV b.i.d. ordered (6) Diabetes mellitus: Code(s): E11.9 - Type 2 diabetes mellitus without complications Status: Acute Assessment and Plan: continue SSI DVT prophylaxis - heparin Nutrition - diabetic diet Code Status - I spoke to patient and patient's daughter at bedside. She requests to be full code at this time Total Critical Care Time - 45 minutes Due to a high probability of clinically significant, life threatening deterioration, the patient required my highest level of preparedness to intervene emergently and I personally spent this critical care time directly and personally managing the patient. This critical care time included obtaining a history; examining the patient; pulse oximetry; ordering and review of studies; arranging urgent treatment with development of a management plan; evaluation of patient's response to treatment; frequent reassessment; and discussions with other providers. It was exclusive of separately billable procedures and treating other patients and teaching time. Please see Assessment and Plan section and the rest of the note for further information on patient assessment and treatment School Administrator Consult Note Consult date: 06/07/20 Time Seen: 11:15 HPI: Chandni Vicente is a 80 year morbidly obese female with a history of COPD, on 3L of chronic home oxygen, CAD s/p SD, s/p stents, HTN, CKD stage III, CHF, Fibromyalgia among other diagnosis who presented to the hospital with complaints of increased exertional shortness of breath, dry sporadic cough, LE swelling and burning urination. She reports that she fell on her left side about 1 week ago when her left leg gave out on her. Since then she has had left ankle pain. patient also reported intermittent chest pain that seems to be exertional in nature as it improves with rest. She has been having anginal symptoms for months and often takes nitroglycerin for it. She describes her chest pain pressure like. The patient last had stents placed in 1998. She has chronic lower extremity swelling which she believes has worsened. patient was found to be having mildly elevated troponin. EKG demonstrated a LBBB
[2020-06-07 15:25] LABS: Glucose Point of Care 72 (65-105)
--- NOTE | 2020-06-07 16:50 | PC.NURSE ---
late entry 1435 moved to ICU 11 for closer observation.
[2020-06-07 17:00] LABS: Glucose Point of Care 80 (65-105)
[2020-06-07] MEDS: ACETAMINOPHEN 325 MG TABLET 650 MG PO (17:18)
--- NOTE | 2020-06-07 17:28 | PM.IMPN ---
Progress Note: A&P Assessment and Plan (1) Chest pain: Qualifiers: Chest pain type: unspecified Qualified Code(s): R07.9 - Chest pain, unspecified Code(s): R07.9 - Chest pain, unspecified Status: Acute Assessment and Plan: atypical does not appear cardiac and no ischemic changes on EKG. Troponin only mildly elevated and flat probably secondary to COPD exacerbation (2) COPD (chronic obstructive pulmonary disease): Qualifiers: COPD type: unspecified COPD Qualified Code(s): J44.9 - Chronic obstructive pulmonary disease, unspecified Code(s): J44.9 - Chronic obstructive pulmonary disease, unspecified Status: Inactive Assessment and Plan: acute on chronic respiratory failure with hypercapnia and hypoxia. CTA of the chest unremarkable and she has received IV Lasix and echocardiogram is pending. Responding minimally to BiPAP with pCO2 still 95 so transferred to ICU for further observation and possible mechanical ventilation (3) Chronic renal failure, stage 3 (moderate): Qualifiers: Chronic kidney disease stage 3 subtype: unspecified whether 3a or 3b Qualified Code(s): N18.30 - Chronic kidney disease, stage 3 unspecified Code(s): N18.30 - Chronic kidney disease, stage 3 unspecified Status: Acute Assessment and Plan: creatinine unchanged continue to monitor (4) Chronic anemia: Code(s): D64.9 - Anemia, unspecified Status: Acute Assessment and Plan: probable anemia of chronic disease but will check iron studies with B12 (5) Diabetes: Qualifiers: Diabetes mellitus type: type 2 Diabetes mellitus chcf insulin use: without terminologist use Diabetes mellitus complication status: without complication Qualified Code(s): E11.9 - Type 2 diabetes mellitus without complications Code(s): E11.9 - Type 2 diabetes mellitus without complications Status: Inactive Assessment and Plan: sliding scale and Lantus as needed (6) Hypertension: Qualifiers: Hypertension type: unspecified Qualified Code(s): I10 - Essential (primary) hypertension Code(s): I10 - Essential (primary) hypertension Status: Inactive Assessment and Plan: blood pressure adequate control continue amlodipine and nitrate (7) Hyperlipidemia: Qualifiers: Hyperlipidemia type: unspecified Qualified Code(s): E78.5 - Hyperlipidemia, unspecified Code(s): E78.5 - Hyperlipidemia, unspecified Status: Inactive Assessment and Plan: continue fenofibrate Subjective Date/time seen: 06/07/20 17:28 Interval history: date of visit 06/07. 80-year-old hypertensive type 2 diabetic with COPD on home O2 admitted with increasing shortness of breath and found to be in respiratory failure. CTA of the chest showed no infiltrates are or emboli in venous Doppler showed no DVT. She had mildly elevated troponin admitted to intermediate care for further evaluation. This a.m. became less responsive with CO2 rising and unresponsive to BiPAP and had to Tineo Destiney be transferred to ICU for closer observation Exam Narrative: Exam Narrative: blood pressure 132/86 pulse is 74 saturating 90% on BiPAP 16/02 with a rate of 20 and 30% FiO2 pupils equal reactive lungs prolonged expiratory phase with basilar crackles CV tachy no murmurs abdomen soft nontender extremities without edema distal pulse 2 + neuro with above lethargic but arousable and oriented x4 with diffuse jerking motions in her arms and legs Objective Data Vital Signs Vital Signs: Vital Signs - 24 hr 06/06/20 20:00 06/06/20 20:11 06/06/20 21:20 Temperature 37.2 C Pulse Rate 58 L 58 L 61 Respiratory Rate 17 22 H Blood Pressure 159/74 H 174/106 H Pulse Oximetry 99 100 06/06/20 22:40 06/07/20 00:41 06/07/20 03:38 Temperature 35.9 C L Pulse Rate 73 64 84 Respiratory Rate 18 22 H 20 Blood Pressure 130/108 H 1
[2020-06-07] MEDS: HEPARIN SODIUM 5,000 UNITS/ML VIAL 5000 UNITS SUB-Q (20:39)
[2020-06-07 20:48] LABS: Glucose Point of Care 86 (65-105)
[2020-06-08] VITALS (26 sets, daily range): BP systolic 108–164; BP diastolic 48–109; PULSE 60–101; RESP 16–27; TEMP 36.6–37.6; O2SAT 95–100
[2020-06-08] MEDS: ALBUTEROL SULFATE NEB 2.5 MG/0.5 ML INH 5 MG INHALATION ×4 (02:23→20:11)
[2020-06-08 03:10] LABS: Base Excess ABG 22.9 mEq/l (+/-2.0); Fractional Inspired Oxygen 30 %; HCO3 ABG 51.1 mEq/l (22.0-26.0); Methemoglobin ABG 0.2 %THb (0-1.5); Oxygen Content ABG 13.1 %vol (16.0-22.0); Oxygen Saturation ABG 91.3 % (95.0-100.0); Oxyhemoglobin 91.1 % THb (90.0-100.0); PO2 ABG 63.4 mmHg (80.0-100.0); PO2 FiO2 Ratio Arterial Blood 2.11 %; Reduced Hemoglobin 8.7 %THb (0-5.0); Total Hemoglobin 10.2 g/dL (12.0-18.0); pH ABG 7.421 (7.350-7.450)
[2020-06-08 03:14] LABS: Device NON-INVASIVE VENT; Modified Allen's Test Pass; PCO2 ABG 80.4 mmHg (35.0-45.0); Site Drawn LEFT RADIAL
[2020-06-08 03:16] LABS: Non-Invasive Expiratory Pressure 6 CMH2O; Non-Invasive Inspiratory Pressure 20 CMH2O; Non-Invasive Vent Rate 10 /MIN
--- NOTE | 2020-06-08 03:17 | PCRCNOTE ---
Pt started pulling BiPAP off around 0300. Unable to tolerate BiPAP at this time. Pt was placed on 2.5L O2 via NC. Will continue to monitor.
[2020-06-08 06:18] LABS: Hematocrit 29.5 % (37.0-47.0); Hemoglobin 8.4 g/dL (12.0-15.0); Mean Corpuscular HGB Conc 28.5 g/dl (32-36); Mean Corpuscular Hemoglobin 28.2 pg (26-34); Mean Platelet Volume 11.8 fl (7.4-10.4); Platelet Count Result 180 k/mm3 (150-375); Red Blood Count 2.98 M/mm3 (4.2-5.4); Red Cell Distribution Width 15.8 % (11.5-14.5); White Blood Count 5.7 K/mm3 (4.5-10.0)
[2020-06-08 06:47] LABS: Alanine Aminotransferase 20 U/L (4-35); Albumin Level 3.4 g/dL (3.5-5.1); Alkaline Phosphatase 51 U/L (38-126); Anion Gap 15.99999 mmol/L (8-16); Aspartate Amino Transferase 36 U/L (14-36); Bilirubin,Total 0.5 mg/dL (0.2-1.3); Blood Urea Nitrogen 35 mg/dL (7-17); Calcium 9.2 mg/dL (8.4-10.2); Carbon Dioxide > 40 mmol/L (22-30); Chloride 92 mmol/L (98-107); Estimated CRCL calculation 42 ml/min; Estimated Glomerular Filt Rate 43; Glucose 97 mg/dL (65-105); Magnesium 2.1 mg/dL (1.6-2.3); Potassium 3.6 mmol/L (3.4-5.0); Sodium 148 mmol/L (137-145)
[2020-06-08 07:56] LABS: Glucose Point of Care 98 (65-105)
[2020-06-08] MEDS: HEPARIN SODIUM 5,000 UNITS/ML VIAL 5000 UNITS SUB-Q ×2 (08:06→19:47)
[2020-06-08] MEDS: FUROSEMIDE INJ 40 MG/4 ML VIAL IV PUSH ×2 (08:06→17:34)
[2020-06-08 09:07] LABS: Glucose Point of Care 102 (65-105)
--- NOTE | 2020-06-08 09:49 | WPDINTPN ---
Progress Note: A&P Assessment and Plan (1) Acute and chronic respiratory failure with hypercapnia: Code(s): J96.22 - Acute and chronic respiratory failure with hypercapnia Status: Acute Assessment and Plan: Acute on chronic Respiratory failure which is multifactorial and secondary to congestive heart failure, COPD, obesity hypoventilation syndrome, . patient was transferred from step-down unit yesterday and placed on BiPAP to 20/6 and dropped the FiO2 down to 30% ABG improved this morning I will give patient a break from BiPAP at this time and monitor closely if she does well then will use it p.r.n. and nightly basis patient is alert oriented x3 and follows commands Bronchodilators continue Lasix lower extremity Dopplers were negative for DVT CTA chest showed no PE and showed cardiomegaly with small effusions and atelectasis (2) CKD (chronic kidney disease): Code(s): N18.9 - Chronic kidney disease, unspecified Status: Acute Assessment and Plan: creatinine appears to be at baseline monitor electrolytes and urine output (3) Anemia: Qualifiers: Anemia type: other cause Other causes of anemia: other cause, not classified Qualified Code(s): D64.89 - Other specified anemias Code(s): D64.9 - Anemia, unspecified Status: Acute Assessment and Plan: transfusion not indicated at this time monitor (4) Elevated troponin: Code(s): R77.8 - Other specified abnormalities of plasma proteins Status: Acute Assessment and Plan: Patient seen by Cardiology aspirin statin echo (5) CHF (congestive heart failure): Code(s): I50.9 - Heart failure, unspecified Status: Acute Assessment and Plan: Lasix IV b.i.d. ordered patient has good urine output monitor (6) Diabetes mellitus: Code(s): E11.9 - Type 2 diabetes mellitus without complications Status: Acute Assessment and Plan: continue SSI DVT prophylaxis - heparin Nutrition - diabetic diet Code Status - 06/07 I spoke to patient and patient's daughter at bedside. She requests to be full code at this time Total Critical Care Time - 30 minutes Due to a high probability of clinically significant, life threatening deterioration, the patient required my highest level of preparedness to intervene emergently and I personally spent this critical care time directly and personally managing the patient. This critical care time included obtaining a history; examining the patient; pulse oximetry; ordering and review of studies; arranging urgent treatment with development of a management plan; evaluation of patient's response to treatment; frequent reassessment; and discussions with other providers. It was exclusive of separately billable procedures and treating other patients and teaching time. Please see Assessment and Plan section and the rest of the note for further information on patient assessment and treatment Subjective Date/time seen: 06/08/20 Patient wore BiPAP last night. Denies any complaints this morning. Patient denies fever, chest pain, shortness of breath, cough, nausea, vomiting, abdominal pain, diarrhea, headache or constipation. Review of Systems Review of Systems: ROS unobtainable: Yes unobtainable due to medical condition ( BiPAP) Exam Narrative: Exam Narrative: General: Pt is alert awake and in NAD Lungs/Chest: Trachea central Clear BS B/L, No crackles or wheezing. BiPAP in place Cardiac: RRR. Normal S1 S2. No murmurs Circulation: Pedal pulses are intact and symmetrical. Abdomen: Normal bowel sounds. morbidly obese. Soft. NT. ND. Extremities: No clubbing, cyanosis or edema left more than right. Warm : Mercer in place Neurologic: Follows commands. Moves all 4 extremities PERRL alert oriented x3, random jerky movements of whole body which are not new as per patient's daughter Skin: No Rash Objective Data Vital Sig
[2020-06-08 10:54] LABS: Iron 44 ug/dL (37-170)
[2020-06-08 11:09] LABS: Percent Iron Saturation 9 % (20-50)
[2020-06-08] MEDS: POTASSIUM CHLORIDE 20 MEQ TABLET PO (11:22)
[2020-06-08] MEDS: ACETAMINOPHEN 325 MG TABLET 650 MG PO ×3 (11:23→19:47)
[2020-06-08 11:30] LABS: Glucose Point of Care 148 (65-105)
--- NOTE | 2020-06-08 13:20 | PCPTNOTE ---
PT/OT orders received for this patient...attempted eval, but patient is confused, not able to follow directions....will attempt eval tomorrow as appropriate
--- NOTE | 2020-06-08 13:21 | PCOTNOTE ---
OT evaluation attempted this date. Patient confused and unable to comprehend or follow simple commands at this time. nursing notified.Will attempt OT evaluation when medically appropriate.
--- NOTE | 2020-06-08 16:39 | PM.IMPN ---
Progress Note: A&P Assessment and Plan (1) Chest pain: Qualifiers: Chest pain type: unspecified Qualified Code(s): R07.9 - Chest pain, unspecified Code(s): R07.9 - Chest pain, unspecified Status: Acute Assessment and Plan: atypical does not appear cardiac and no ischemic changes on EKG. Troponin only mildly elevated and flat probably secondary to COPD exacerbation echo no wall motion abnormalities (2) COPD (chronic obstructive pulmonary disease): Qualifiers: COPD type: unspecified COPD Qualified Code(s): J44.9 - Chronic obstructive pulmonary disease, unspecified Code(s): J44.9 - Chronic obstructive pulmonary disease, unspecified Status: Chronic Assessment and Plan: acute on chronic respiratory failure with hypercapnia and hypoxia. CTA of the chest unremarkable and she has received IV Lasix and echocardiogram is pending. Responded to BiPAP with pCO2 now at 85 and on nasal cannula. Will transfer out of ICU the intermediate care pulmonary hypertension seen on echocardiogram estimated at 60 (3) Chronic renal failure, stage 3 (moderate): Qualifiers: Chronic kidney disease stage 3 subtype: unspecified whether 3a or 3b Qualified Code(s): N18.30 - Chronic kidney disease, stage 3 unspecified Code(s): N18.30 - Chronic kidney disease, stage 3 unspecified Status: Acute Assessment and Plan: creatinine unchanged continue to monitor at 1.2 actually better than has been in the past (4) Chronic anemia: Code(s): D64.9 - Anemia, unspecified Status: Chronic Assessment and Plan: thought initially probable anemia of chronic disease iron studies compatible with iron deficiency so will replenish with IV iron and check stool guaiacs hemoglobin 8.4 today. B12 level normal (5) Diabetes: Qualifiers: Diabetes mellitus type: type 2 Diabetes mellitus nitro worker insulin use: without nitro worker use Diabetes mellitus complication status: without complication Qualified Code(s): E11.9 - Type 2 diabetes mellitus without complications Code(s): E11.9 - Type 2 diabetes mellitus without complications Status: Chronic Assessment and Plan: sliding scale and Lantus as needed (6) Hypertension: Qualifiers: Hypertension type: unspecified Qualified Code(s): I10 - Essential (primary) hypertension Code(s): I10 - Essential (primary) hypertension Status: Chronic Assessment and Plan: blood pressure adequate control continue amlodipine and nitrate (7) Hyperlipidemia: Qualifiers: Hyperlipidemia type: unspecified Qualified Code(s): E78.5 - Hyperlipidemia, unspecified Code(s): E78.5 - Hyperlipidemia, unspecified Status: Chronic Assessment and Plan: continue fenofibrate Subjective Date/time seen: 06/08/20 16:39 Interval history: date of visit 06/08. 80-year-old hypertensive type 2 diabetic with COPD on home O2 admitted with increasing shortness of breath and found to be in respiratory failure. CTA of the chest showed no infiltrates are or emboli in venous Doppler showed no DVT. She had mildly elevated troponin admitted to intermediate care for further evaluation. a.m. 06/07 became less responsive with CO2 rising and unresponsive to BiPAP and had to be transferred to ICU for closer observation. off BiPAP and back on cannula today Exam Narrative: Exam Narrative: blood pressure 152/72 pulse is 66 saturating 95% on 1.5L NC pupils equal reactive lungs prolonged expiratory phase with left basilar crackles CV tachy no murmurs abdomen soft nontender extremities without edema distal pulse 2 + neuro lethargic but arousable and less abnormal twitching today Objective Data Vital Signs Vital Signs: Vital Signs - 24 hr 06/07/20 20:00 06/07/20 20:20 06/07/20 20:25 Temperature 37.1 C Pulse Rate 63 63 Respiratory Rate 18 19 17 Bl
[2020-06-08 17:17] LABS: Glucose Point of Care 166 (65-105)
[2020-06-08] MEDS: TIZANIDINE HCL 4 MG TABLET PO (19:47)
[2020-06-08 20:02] LABS: Glucose Point of Care 180 (65-105)
--- NOTE | 2020-06-08 20:20 | PM.PNCARD ---
Progress Note: A&P Assessment and Plan (1) Acute and chronic respiratory failure with hypercapnia: Code(s): J96.22 - Acute and chronic respiratory failure with hypercapnia Status: Acute Assessment and Plan: Multifactorial with h/o COPD, obesity, diastolic heart failure, likely RONAL PCo2 is 100 with AMS and tremors. Started BiPAP this admission. Will give lasix state now. Then start Lasix 40 mg IV BID (on Torsemide at home) Her trop is borderline elevated peaked at 0.063 in the setting of acute CHF and CKD. Doubt ACS. She had echocardiogram 06/07/2020: Left ventricular systolic function normal with left ventricular ejection fraction 55-60%, left ventricular size normal, mild left ventricular hypertrophy, E/E prime ratio greater than 15 consistent with elevated left atrial filling pressure, moderate aortic valve stenosis, moderate pulmonary hypertension with estimated pulmonary artery systolic pressure of 60 mm Hg, dilated IVC with patient on BiPAP. She has history of PCI in the past. Unclear when. 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 Patient remains confused about her prior information systems supervisor, and she denies any history of atrial fibrillation. Resuming low-dose aspirin but monitor hemoglobin given significant anemia. She is not a candidate for anticoagulation at present. She has an irregular rhythm with possible multifocal atrial rhythm in setting of her COPD versus atrial fibrillation with moderate ventricular response. She is currently not on a rate control agent. Consider addition of low-dose diltiazem pending blood pressure and heart rate trends. Obtain fasting lipid panel and consider statin. (2) Elevated troponin: Code(s): R77.8 - Other specified abnormalities of plasma proteins Status: Acute Assessment and Plan: Borderline troponin with peak elevation 0.06. EKG with LBBB. Need to get records. No focal wall motion abnormalities on echo this admission with normal left ventricular systolic function, but with evidence of increased left atrial pressure and moderate to severe pulmonary hypertension.. She may eventually need ischemic evaluation in out patient settings if has not be done recently once stable and better compensated from CHF standpoint (3) Chest pain: Qualifiers: Chest pain type: unspecified Qualified Code(s): R07.9 - Chest pain, unspecified Code(s): R07.9 - Chest pain, unspecified Status: Acute Assessment and Plan: Resumed home dose of Imdur and resume other antihypertensives as tolerated by blood pressure. (4) Heart failure: Qualifiers: Heart failure chronicity: unspecified Heart failure type: unspecified Qualified Code(s): I50.9 - Heart failure, unspecified Code(s): I50.9 - Heart failure, unspecified Status: Acute Assessment and Plan: She has acute on chronic heart failure with preserved ejection fraction with moderate severe pulmonary hypertension. Continue diuresis with IV Lasix with careful monitoring of renal function and electrolytes. Subjective Date/time seen: 06/08/20 20:20 Patient remains in ICU with transfer to step-down unit planned. Patient denies chest pain at present and reports improving dyspnea. She is resting comfortably in bed. She was on BiPAP overnight but off BiPAP during the day. Patient was seen and examined, chart reviewed, case discussed with nurse. Interval history: date of visit 06/08/20. 80-year-old hypertensive type 2 diabetic with COPD on home O2 admitted with increasing shortness of breath and found to be in respiratory failure. CTA of the chest showed no infiltrates or emboli and venous Doppler showed no DVT. She had mildly elevated troponin, admitted to intermediate care for further evaluation. a.m. 06/07 became less responsive with CO2 rising and unresponsive to BiPAP and had to be transferred to ICU for closer observati
[2020-06-09] VITALS (20 sets, daily range): BP systolic 89–169; BP diastolic 54–92; PULSE 57–107; RESP 16–24; TEMP 36.3–38.3; O2SAT 93–100
--- NOTE | 2020-06-09 01:35 | ADMIMU ---
This patient, Chandni Vicente, was transferred and placed in IMU Room 201-01 06/08/20 [id number]. Patient/family oriented to hospital policies and general routines including ID bracelet, bed and alarms, visiting hours, pain management, procedures, bathroom and other care routines, personal items, smoking policy, room service/diet, and visiting hours. Valuables list has been completed. Information on how to activate the Rapid Response Team has been discussed. Patient/Family are encouraged to report perceived risks to care and to ask questions if they do not understand what they are told or what they should do.
--- NOTE | 2020-06-09 01:58 | PC.NURSE ---
Late entry-This patient, Chandni Vicente, was received from ICU-11 on 06/08/20 at 2255. Personal belongings list checked and signed. Patient/family oriented to unit policies and routines
[2020-06-09] MEDS: ALBUTEROL SULFATE NEB 2.5 MG/0.5 ML INH 5 MG INHALATION ×4 (02:40→20:42)
[2020-06-09] MEDS: ACETAMINOPHEN 325 MG TABLET 650 MG PO (02:52)
[2020-06-09 04:11] LABS: Alveolar/Arterial O2 Gradient 49.1 mmHg; Base Excess ABG 19.6 mEq/l (+/-2.0); Carboxyhemoglobin 0.3 % THb (0-2.0); Fractional Inspired Oxygen 28 %; HCO3 ABG 45.3 mEq/l (22.0-26.0); Oxygen Content ABG 13.3 %vol (16.0-22.0); Oxygen Saturation ABG 96.4 % (95.0-100.0); Oxyhemoglobin 94.9 % THb (90.0-100.0); PCO2 ABG 59.3 mmHg (35.0-45.0); PO2 ABG 80.6 mmHg (80.0-100.0); PO2 FiO2 Ratio Arterial Blood 2.88 %; Reduced Hemoglobin 4.8 %THb (0-5.0); Total Hemoglobin 9.9 g/dL (12.0-18.0); pH ABG 7.501 (7.350-7.450)
[2020-06-09 04:12] LABS: Device NASAL CANNULA; Modified Allen's Test Pass; Site Drawn RIGHT RADIAL
[2020-06-09 04:21] LABS: IFOB Positive Control Positive; Immunochemical Fecal Occult Bl Negative (N)
[2020-06-09 04:56] LABS: Hematocrit 31.9 % (37.0-47.0); Hemoglobin 8.8 g/dL (12.0-15.0); Mean Corpuscular HGB Conc 27.6 g/dl (32-36); Mean Corpuscular Hemoglobin 27.8 pg (26-34); Mean Corpuscular Volume 100.6 fl (80-100); Mean Platelet Volume 12.1 fl (7.4-10.4); Platelet Count Result 160 k/mm3 (150-375); Red Blood Count 3.17 M/mm3 (4.2-5.4); Red Cell Distribution Width 15.5 % (11.5-14.5); White Blood Count 7.4 K/mm3 (4.5-10.0)
[2020-06-09 05:20] LABS: Alanine Aminotransferase 22 U/L (4-35); Albumin Level 3.6 g/dL (3.5-5.1); Alkaline Phosphatase 52 U/L (38-126); Anion Gap 10.99999 mmol/L (8-16); Aspartate Amino Transferase 49 U/L (14-36); Bilirubin,Total 0.5 mg/dL (0.2-1.3); Blood Urea Nitrogen 36 mg/dL (7-17); Carbon Dioxide > 40 mmol/L (22-30); Chloride 92 mmol/L (98-107); Cholesterol 119 mg/dL (0-200); Estimated CRCL calculation 43 ml/min; Estimated Glomerular Filt Rate 48; Glucose 157 mg/dL (65-105); HDL Direct 35 mg/dL; Potassium 3.1 mmol/L (3.4-5.0); Sodium 143 mmol/L (137-145); Triglycerides 286 mg/dL (<150)
[2020-06-09 05:22] LABS: LDL Cholesterol Direct 42 mg/dL
[2020-06-09 08:48] LABS: Glucose Point of Care 148 (65-105)
[2020-06-09] MEDS: ISOSORBIDE MONONITRATE 30 MG TAB.ER.24H PO ×2 (09:04→11:05)
[2020-06-09] MEDS: POTASSIUM CHLORIDE 20 MEQ TABLET 40 MEQ PO ×2 (09:04→17:51)
[2020-06-09] MEDS: FUROSEMIDE INJ 40 MG/4 ML VIAL IV PUSH ×2 (09:04→17:52)
[2020-06-09] MEDS: ASPIRIN 81 MG ENTERIC TABLET PO (09:04)
[2020-06-09] MEDS: HEPARIN SODIUM 5,000 UNITS/ML VIAL 5000 UNITS SUB-Q ×2 (09:29→21:28)
[2020-06-09] MEDS: PREGABALIN (*CRX) 50 MG CAPSULE 200 MG PO (09:31)
--- NOTE | 2020-06-09 11:03 | PCOTNOTE ---
Attempted OT eval 11:00; pt agitated and crying out in pain, not lucid at times. CHIEF CREW SCHEDULER reported pt did not tolerate bathing well. Spoke with doctor for hold orders until medical situation improves.
[2020-06-09] MEDS: INSULIN GLARGINE (*BKC) 100 UNITS/ML 10 UNITS SUB-Q (11:04)
[2020-06-09] MEDS: FENOFIBRATE NANOCRYSTALLIZED 145 MG TABLET PO (11:04)
[2020-06-09] MEDS: PANTOPRAZOLE 40 MG TABLET PO (11:04)
[2020-06-09] MEDS: calcitrioL 0.25 MCG CAPSULE PO (11:04)
[2020-06-09] MEDS: ATORVASTATIN 40 MG TABLET 80 MG PO (11:05)
[2020-06-09] MEDS: amLODIPine BESYLATE 5 MG TABLET PO (11:05)
[2020-06-09 12:33] LABS: Glucose Point of Care 148 (65-105)
--- NOTE | 2020-06-09 12:46 | PCPTNOTE ---
Attempted to evaluate this patient this morning...she was agitated, crying out in pain, tremulous...spoke with Dr Norton, who agreed that patient was not appropriate at this time, and said that he would issue HOLD PT/OT orders for this patient
[2020-06-09] MEDS: traMADol HCL (*CRX) 25 MG TABLET PO (15:17)
--- NOTE | 2020-06-09 15:52 | PM.IMPN ---
Progress Note: A&P Assessment and Plan (1) Chest pain: Qualifiers: Chest pain type: unspecified Qualified Code(s): R07.9 - Chest pain, unspecified Code(s): R07.9 - Chest pain, unspecified Status: Acute Assessment and Plan: atypical does not appear cardiac and no ischemic changes on EKG. Troponin only mildly elevated and flat probably secondary to COPD exacerbation echo no wall motion abnormalities (2) COPD (chronic obstructive pulmonary disease): Qualifiers: COPD type: unspecified COPD Qualified Code(s): J44.9 - Chronic obstructive pulmonary disease, unspecified Code(s): J44.9 - Chronic obstructive pulmonary disease, unspecified Status: Chronic Assessment and Plan: acute on chronic respiratory failure with hypercapnia and hypoxia. CTA of the chest unremarkable and she has received IV Lasix and echocardiogram normal EF with pul htn. Responded to BiPAP with pCO2 now at 59 and on nasal cannula. Will transfer out of IMU to medicine pulmonary hypertension seen on echocardiogram estimated at 60 repeat xray today persistant LLL opacity, atelectasis VS fluid VS infiltrate . will start ceftriaxone and doxycycline with her degree of copd (3) Chronic renal failure, stage 3 (moderate): Qualifiers: Chronic kidney disease stage 3 subtype: unspecified whether 3a or 3b Qualified Code(s): N18.30 - Chronic kidney disease, stage 3 unspecified Code(s): N18.30 - Chronic kidney disease, stage 3 unspecified Status: Acute Assessment and Plan: creatinine unchanged continue to monitor at 1.1 actually better than has been in the past (4) Chronic anemia: Code(s): D64.9 - Anemia, unspecified Status: Chronic Assessment and Plan: thought initially probable anemia of chronic disease iron studies compatible with iron deficiency so will replenish with IV iron and check stool guaiacs hemoglobin 8.8 today. B12 level normal (5) Diabetes: Qualifiers: Diabetes mellitus type: type 2 Diabetes mellitus half-way insulin use: without half-way use Diabetes mellitus complication status: without complication Qualified Code(s): E11.9 - Type 2 diabetes mellitus without complications Code(s): E11.9 - Type 2 diabetes mellitus without complications Status: Chronic Assessment and Plan: sliding scale and Lantus started at 10 Units qd today (6) Hypertension: Qualifiers: Hypertension type: unspecified Qualified Code(s): I10 - Essential (primary) hypertension Code(s): I10 - Essential (primary) hypertension Status: Chronic Assessment and Plan: blood pressure fair control continue amlodipine and nitrate (7) Hyperlipidemia: Qualifiers: Hyperlipidemia type: unspecified Qualified Code(s): E78.5 - Hyperlipidemia, unspecified Code(s): E78.5 - Hyperlipidemia, unspecified Status: Chronic Assessment and Plan: continue fenofibrate (8) CHF (congestive heart failure): Code(s): I50.9 - Heart failure, unspecified Status: Acute Assessment and Plan: probable acute on chronic diastolic HF , continue IV lasix and control bp Subjective Date/time seen: 06/09/20 15:52 Interval history: date of visit 06/09. 80-year-old hypertensive type 2 diabetic with COPD on home O2 admitted with increasing shortness of breath and found to be in respiratory failure. CTA of the chest showed no infiltrates are or emboli and venous Doppler showed no DVT. She had mildly elevated troponin admitted to intermediate care for further evaluation. a.m. 06/07 became less responsive with CO2 rising and unresponsive to BiPAP and had to be transferred to ICU for closer observation. off BiPAP and back on cannula 06/08 .mental status back to baseline Exam Narrative: Exam Narrative: blood pressure 164/82 pulse is 64 saturating 95% on 1.5L NC pupils equal reactive l
[2020-06-09 16:55] LABS: Glucose Point of Care 224 (65-105)
[2020-06-09] MEDS: INSULIN ASPART (*BKC) 100 UNITS/ML SUB-Q (17:48)
--- NOTE | 2020-06-09 18:11 | ECG_ITS ---
Measurements Intervals [place] Rate: 88 P: -21 [place]: 100 QRS: -19 QRSD: 145 T: 149 QT: 427 QTc: 518 Interpretive Statements SINUS OR ECTOPIC ATRIAL RHYTHM WITH SHORT [place] INTERVAL FREQUENT ATRIAL PREMATURE COMPLEXES LEFT BUNDLE BRANCH BLOCK ABNORMAL ECG Electronically Signed On 06-10-2020 6:45:21 CDT by Rick Zapata D.O.
[2020-06-09 20:06] LABS: Glucose Point of Care 222 (65-105)
[2020-06-09] MEDS: traMADol HCL (*CRX) 50 MG TABLET PO (21:27)
[2020-06-09] MEDS: TIZANIDINE HCL 4 MG TABLET PO (21:27)
[2020-06-09] MEDS: DOXYCYCLINE HYCLATE 100 MG TABLET PO (21:58)
[2020-06-10] VITALS (14 sets, daily range): BP systolic 142–160; BP diastolic 57–80; PULSE 58–88; RESP 16–23; TEMP 36.2–36.6; O2SAT 94–98
--- NOTE | 2020-06-10 00:20 | PC.NURSE ---
Patient complaining of discomfort on her nose. Mepilex applied to area and RT to bedside to change mask.
[2020-06-10] MEDS: ALBUTEROL SULFATE NEB 2.5 MG/0.5 ML INH 5 MG INHALATION ×4 (02:10→20:58)
[2020-06-10 04:42] LABS: Hematocrit 27.5 % (37.0-47.0); Hemoglobin 8.3 g/dL (12.0-15.0); Mean Corpuscular HGB Conc 30.2 g/dl (32-36); Mean Corpuscular Hemoglobin 28.4 pg (26-34); Mean Corpuscular Volume 94.2 fl (80-100); Platelet Count Result 189 k/mm3 (150-375); Red Blood Count 2.92 M/mm3 (4.2-5.4); Red Cell Distribution Width 16.1 % (11.5-14.5); White Blood Count 9.6 K/mm3 (4.5-10.0)
[2020-06-10 05:06] LABS: Alanine Aminotransferase 20 U/L (4-35); Albumin Level 3.4 g/dL (3.5-5.1); Alkaline Phosphatase 56 U/L (38-126); Anion Gap 8.99999 mmol/L (8-16); Aspartate Amino Transferase 43 U/L (14-36); Bilirubin,Total 0.4 mg/dL (0.2-1.3); Blood Urea Nitrogen 37 mg/dL (7-17); Calcium 8.8 mg/dL (8.4-10.2); Carbon Dioxide > 40 mmol/L (22-30); Chloride 94 mmol/L (98-107); Estimated CRCL calculation 32 ml/min; Estimated Glomerular Filt Rate 34; Glucose 108 mg/dL (65-105); Potassium 3.4 mmol/L (3.4-5.0); Sodium 143 mmol/L (137-145)
[2020-06-10 05:23] LABS: Alveolar/Arterial O2 Gradient 76.2 mmHg; Base Excess ABG 16.7 mEq/l (+/-2.0); Carboxyhemoglobin 0.3 % THb (0-2.0); Fractional Inspired Oxygen 30 %; HCO3 ABG 42.3 mEq/l (22.0-26.0); Methemoglobin ABG 0.2 %THb (0-1.5); Modified Allen's Test Pass; Oxygen Content ABG 12.2 %vol (16.0-22.0); Oxygen Saturation ABG 94.5 % (95.0-100.0); Oxyhemoglobin 91.6 % THb (90.0-100.0); PCO2 ABG 58.1 mmHg (35.0-45.0); PO2 ABG 69.4 mmHg (80.0-100.0); PO2 FiO2 Ratio Arterial Blood 2.31 %; Reduced Hemoglobin 7.9 %THb (0-5.0); Site Drawn RIGHT RADIAL; Total Hemoglobin 9.4 g/dL (12.0-18.0)
[2020-06-10 05:24] LABS: Device NON-INVASIVE VENT; Non-Invasive Vent Rate 10 /MIN
[2020-06-10 05:25] LABS: Non-Invasive Expiratory Pressure 6 CMH2O; Non-Invasive Inspiratory Pressure 20 CMH2O
[2020-06-10 07:45] LABS: Glucose Point of Care 107 (65-105)
[2020-06-10] MEDS: FENOFIBRATE NANOCRYSTALLIZED 145 MG TABLET PO (10:03)
[2020-06-10] MEDS: DOXYCYCLINE HYCLATE 100 MG TABLET PO ×2 (10:03→20:10)
[2020-06-10] MEDS: PANTOPRAZOLE 40 MG TABLET PO (10:03)
[2020-06-10] MEDS: ATORVASTATIN 40 MG TABLET 80 MG PO (10:03)
[2020-06-10] MEDS: ASPIRIN 81 MG ENTERIC TABLET PO (10:04)
[2020-06-10] MEDS: calcitrioL 0.25 MCG CAPSULE PO (10:04)
[2020-06-10] MEDS: ISOSORBIDE MONONITRATE 30 MG TAB.ER.24H PO (10:04)
[2020-06-10] MEDS: amLODIPine BESYLATE 5 MG TABLET PO (10:04)
[2020-06-10] MEDS: INSULIN GLARGINE (*BKC) 100 UNITS/ML 10 UNITS SUB-Q (10:07)
[2020-06-10] MEDS: HEPARIN SODIUM 5,000 UNITS/ML VIAL 5000 UNITS SUB-Q ×2 (10:07→20:10)
[2020-06-10] MEDS: POTASSIUM CHLORIDE 20 MEQ TABLET 40 MEQ PO (10:07)
[2020-06-10] MEDS: PREGABALIN (*CRX) 50 MG CAPSULE 200 MG PO (10:08)
[2020-06-10 14:11] LABS: Glucose Point of Care 194 (65-105)
[2020-06-10] MEDS: traMADol HCL (*CRX) 50 MG TABLET PO ×2 (14:25→20:11)
--- NOTE | 2020-06-10 16:17 | PM.PNCARD ---
Progress Note: A&P Assessment and Plan (1) Acute and chronic respiratory failure with hypercapnia: Code(s): J96.22 - Acute and chronic respiratory failure with hypercapnia Status: Acute Assessment and Plan: Multifactorial with h/o COPD, obesity, diastolic heart failure, likely RONAL PCo2 is 100 with AMS and tremors. Started BiPAP this admission. Will give lasix state now. Then start Lasix 40 mg IV BID (on Torsemide at home) Her trop is borderline elevated peaked at 0.063 in the setting of acute CHF and CKD. Doubt ACS. She had echocardiogram 06/07/2020: Left ventricular systolic function normal with left ventricular ejection fraction 55-60%, left ventricular size normal, mild left ventricular hypertrophy, E/E prime ratio greater than 15 consistent with elevated left atrial filling pressure, moderate aortic valve stenosis, moderate pulmonary hypertension with estimated pulmonary artery systolic pressure of 60 mm Hg, dilated IVC with patient on BiPAP. She has history of PCI in the past. Unclear when. Will need to get records once patient more awake and able to tell who is her cooler conveyor loader. Patient remains confused about her prior cooler conveyor loader, and she denies any history of atrial fibrillation. Resuming low-dose aspirin but monitor hemoglobin given significant anemia. She is not a candidate for anticoagulation at present. She has an irregular rhythm with possible multifocal atrial rhythm in setting of her COPD versus atrial fibrillation with moderate ventricular response. She is currently not on a rate control agent. Consider addition of low-dose diltiazem pending blood pressure and heart rate trends. Obtain fasting lipid panel and consider statin. (2) Elevated troponin: Code(s): R77.8 - Other specified abnormalities of plasma proteins Status: Acute Assessment and Plan: Borderline troponin with peak elevation 0.06. EKG with LBBB. Need to get records. No focal wall motion abnormalities on echo this admission with normal left ventricular systolic function, but with evidence of increased left atrial pressure and moderate to severe pulmonary hypertension.. She may eventually need ischemic evaluation in out patient settings if has not be done recently once stable and better compensated from CHF standpoint (3) Chest pain: Qualifiers: Chest pain type: unspecified Qualified Code(s): R07.9 - Chest pain, unspecified Code(s): R07.9 - Chest pain, unspecified Status: Acute Assessment and Plan: Resumed home dose of Imdur and resume other antihypertensives as tolerated by blood pressure. (4) Heart failure: Qualifiers: Heart failure chronicity: unspecified Heart failure type: unspecified Qualified Code(s): I50.9 - Heart failure, unspecified Code(s): I50.9 - Heart failure, unspecified Status: Acute Assessment and Plan: She has acute on chronic heart failure with preserved ejection fraction with moderate severe pulmonary hypertension. Continue diuresis with IV Lasix with careful monitoring of renal function and electrolytes. Subjective Date/time seen: 06/10/20 16:17 She feels slightly better today, seems to be more awake and alert now, less confused, no chest pain, shortness of breath is better still with some cough Exam Narrative: Exam Narrative: Minimally responsive, generalized tremors. More pronounced in upper exts. Eyes: Sclera: sclerae normal Neck: Neck: no JVD Carotids: no bruits Resp: Auscultation: diminished lung sounds Cardio: Rate: regular rate and not tachycardic Rhythm: regular rhythm Heart sounds: no gallops, Murmur heart sound present and no rubs Skin: General skin exam: normal color Neuro: Cranial nerves: Yes hard of hearing Extrem: General: normal to inspection and edema Psych: Affect: normal affect Objective Data Vital Signs Vital Signs: Vital Signs - 24 hr 06/09/20 19:49 06/09/20 20:00 06/09/20 2
[2020-06-10 17:41] LABS: Glucose Point of Care 120 (65-105)
--- NOTE | 2020-06-10 18:01 | PM.IMPN ---
Progress Note: A&P Assessment and Plan (1) Chest pain: Qualifiers: Chest pain type: unspecified Qualified Code(s): R07.9 - Chest pain, unspecified Code(s): R07.9 - Chest pain, unspecified Status: Acute Assessment and Plan: atypical does not appear cardiac and no ischemic changes on EKG. Troponin only mildly elevated and flat probably secondary to COPD exacerbation echo no wall motion abnormalities with normal EF (2) COPD (chronic obstructive pulmonary disease): Qualifiers: COPD type: unspecified COPD Qualified Code(s): J44.9 - Chronic obstructive pulmonary disease, unspecified Code(s): J44.9 - Chronic obstructive pulmonary disease, unspecified Status: Chronic Assessment and Plan: acute on chronic respiratory failure with hypercapnia and hypoxia. CTA of the chest unremarkable and she has received IV Lasix and echocardiogram normal EF with pul htn. Responded to BiPAP with pCO2 now at 58 and on nasal cannula. transferred out of IMU to medicine 06/09 pulmonary hypertension seen on echocardiogram estimated at 60 repeat xray 06/09 persistant LLL opacity, atelectasis VS fluid VS infiltrate . started ceftriaxone and doxycycline with her degree of copd and low grade temp BC so for NG (3) Chronic renal failure, stage 3 (moderate): Qualifiers: Chronic kidney disease stage 3 subtype: unspecified whether 3a or 3b Qualified Code(s): N18.30 - Chronic kidney disease, stage 3 unspecified Code(s): N18.30 - Chronic kidney disease, stage 3 unspecified Status: Acute Assessment and Plan: creatinine back up to 1.5 so holding lasix with that and rising c02 (4) Chronic anemia: Code(s): D64.9 - Anemia, unspecified Status: Chronic Assessment and Plan: thought initially probable anemia of chronic disease but iron studies compatible with iron deficiency so replenished with IV iron(900 mg total) and stool guaiacs is negative for blood hemoglobin 8.3 today. B12 level normal (5) Diabetes: Qualifiers: Diabetes mellitus type: type 2 Diabetes mellitus manager long term care insulin use: without manager long term care use Diabetes mellitus complication status: without complication Qualified Code(s): E11.9 - Type 2 diabetes mellitus without complications Code(s): E11.9 - Type 2 diabetes mellitus without complications Status: Chronic Assessment and Plan: sliding scale and Lantus started at 10 Units qd today (6) Hypertension: Qualifiers: Hypertension type: unspecified Qualified Code(s): I10 - Essential (primary) hypertension Code(s): I10 - Essential (primary) hypertension Status: Chronic Assessment and Plan: blood pressure fair control continue amlodipine and nitrate (7) Hyperlipidemia: Qualifiers: Hyperlipidemia type: unspecified Qualified Code(s): E78.5 - Hyperlipidemia, unspecified Code(s): E78.5 - Hyperlipidemia, unspecified Status: Chronic Assessment and Plan: continue fenofibrate (8) CHF (congestive heart failure): Code(s): I50.9 - Heart failure, unspecified Status: Acute Assessment and Plan: probable acute on chronic diastolic HF , continue IV lasix and control bp Subjective Date/time seen: 06/10/20 18:01 Interval history: date of visit 06/10. 80-year-old hypertensive type 2 diabetic with COPD on home O2 admitted with increasing shortness of breath and found to be in respiratory failure. CTA of the chest showed no infiltrates or emboli and venous Doppler showed no DVT. She had mildly elevated troponin admitted to intermediate care for further evaluation. a.m. 06/07 became less responsive with CO2 rising and unresponsive to BiPAP and had to be transferred to ICU for closer observation. off BiPAP and back on cannula 06/08 .mental status back to baseline Exam Narrative: Exam Narrative: blood pressure 142/64 puls
--- NOTE | 2020-06-10 18:25 | PC.NURSE ---
This patient, Chandni Vicente, was transferred to [facility] on 06/10/20 at 1813. Personal belongings sent with patient. Report given to Farrah JUDGE. Appropriate documentation sent with patient.
--- NOTE | 2020-06-10 18:48 | PC.NURSE ---
This patient, Chandni Vicente, was received from [ IMU] on 06/10/20 at 1840. Personal belongings list checked and signed. Patient/family oriented to unit policies and routines
[2020-06-10] MEDS: TIZANIDINE HCL 4 MG TABLET PO (20:10)
[2020-06-10 20:38] LABS: Glucose Point of Care 206 (65-105)
[2020-06-11] VITALS (20 sets, daily range): BP systolic 120–144; BP diastolic 48–87; PULSE 50–109; RESP 16–20; TEMP 35.9–36.5; O2SAT 94–98
[2020-06-11] MEDS: traMADol HCL (*CRX) 50 MG TABLET PO ×3 (01:56→14:39)
[2020-06-11] MEDS: ALBUTEROL SULFATE NEB 2.5 MG/0.5 ML INH 5 MG INHALATION ×4 (02:49→21:11)
[2020-06-11] MEDS: NITROGLYCERIN SL 0.4 MG TABLET SUBLINGUAL ×2 (05:26→05:35)
--- NOTE | 2020-06-11 05:34 | ECG_ITS ---
Measurements Intervals [place] Rate: 68 P: -51 HI: 133 QRS: -28 QRSD: 150 T: 75 QT: 475 QTc: 507 Interpretive Statements ECTOPIC ATRIAL RHYTHM LEFT BUNDLE BRANCH BLOCK ABNORMAL ECG Electronically Signed On 06-11-2020 7:08:50 CDT by Rick Zapata D.O.
--- NOTE | 2020-06-11 05:44 | PC.NURSE ---
0522 dr. belcher here to examine patient. labs drawn
--- NOTE | 2020-06-11 05:45 | PCDIET ---
states pain went from rating of 6 to 4 after 2nd nitro
[2020-06-11 06:01] LABS: Hematocrit 27.1 % (37.0-47.0); Hemoglobin 8.1 g/dL (12.0-15.0); Mean Corpuscular HGB Conc 29.9 g/dl (32-36); Mean Corpuscular Hemoglobin 28.2 pg (26-34); Mean Corpuscular Volume 94.4 fl (80-100); Mean Platelet Volume 12.2 fl (7.4-10.4); Platelet Count Result 197 k/mm3 (150-375); Red Blood Count 2.87 M/mm3 (4.2-5.4); Red Cell Distribution Width 15.9 % (11.5-14.5); White Blood Count 8.3 K/mm3 (4.5-10.0)
[2020-06-11 06:30] LABS: Alanine Aminotransferase 20 U/L (4-35); Albumin Level 3.3 g/dL (3.5-5.1); Alkaline Phosphatase 56 U/L (38-126); Anion Gap 8.99999 mmol/L (8-16); Aspartate Amino Transferase 37 U/L (14-36); Bilirubin,Total 0.4 mg/dL (0.2-1.3); Blood Urea Nitrogen 40 mg/dL (7-17); Calcium 8.7 mg/dL (8.4-10.2); Carbon Dioxide > 40 mmol/L (22-30); Chloride 94 mmol/L (98-107); Estimated CRCL calculation 34 ml/min; Estimated Glomerular Filt Rate 36; Glucose 113 mg/dL (65-105); Magnesium 2.1 mg/dL (1.6-2.3); Potassium 3.5 mmol/L (3.4-5.0); Sodium 143 mmol/L (137-145)
[2020-06-11 06:32] LABS: Troponin I 0.068 ng/mL (0.000-0.034)
[2020-06-11 07:28] LABS: Glucose Point of Care 105 (65-105)
[2020-06-11] MEDS: amLODIPine BESYLATE 5 MG TABLET PO (08:05)
[2020-06-11] MEDS: ASPIRIN 81 MG ENTERIC TABLET PO (08:06)
[2020-06-11] MEDS: DOXYCYCLINE HYCLATE 100 MG TABLET PO ×2 (08:06→20:47)
[2020-06-11] MEDS: FENOFIBRATE NANOCRYSTALLIZED 145 MG TABLET PO (08:06)
[2020-06-11] MEDS: ISOSORBIDE MONONITRATE 30 MG TAB.ER.24H PO (08:06)
[2020-06-11] MEDS: ATORVASTATIN 40 MG TABLET 80 MG PO (08:06)
[2020-06-11] MEDS: calcitrioL 0.25 MCG CAPSULE PO (08:06)
[2020-06-11] MEDS: PREGABALIN (*CRX) 50 MG CAPSULE 200 MG PO (08:07)
[2020-06-11] MEDS: PANTOPRAZOLE 40 MG TABLET PO (08:07)
[2020-06-11] MEDS: INSULIN GLARGINE (*BKC) 100 UNITS/ML 10 UNITS SUB-Q (08:08)
[2020-06-11] MEDS: HEPARIN SODIUM 5,000 UNITS/ML VIAL 5000 UNITS SUB-Q ×2 (09:38→20:48)
[2020-06-11] MEDS: ONDANSETRON INJ 4 MG/2 ML VIAL IV PUSH ×2 (09:42→14:39)
[2020-06-11 11:30] LABS: Glucose Point of Care 167 (65-105)
--- NOTE | 2020-06-11 12:39 | PM.IMPN ---
Progress Note: A&P Assessment and Plan (1) Chest pain: Qualifiers: Chest pain type: unspecified Qualified Code(s): R07.9 - Chest pain, unspecified Code(s): R07.9 - Chest pain, unspecified Status: Acute Assessment and Plan: Patient continues to have CP. [place] to be atypical but Trop higher now but no ischemic changes on EKG. Echo (06/07) showing EF 55-60% with Grade 2 diastolic dysfunction, moderate and moderate pulmonary HTN. Symptoms appear to improve with NTG. Later she had n/v. Will check Lipase and RUQ US. (2) COPD (chronic obstructive pulmonary disease): Qualifiers: COPD type: unspecified COPD Qualified Code(s): J44.9 - Chronic obstructive pulmonary disease, unspecified Code(s): J44.9 - Chronic obstructive pulmonary disease, unspecified Status: Chronic Assessment and Plan: Acute on chronic respiratory failure with hypercapnia and hypoxia. ABG 06/07 showing 7.29/106/41. CTA of the chest unremarkable. She was on IV Lasix that stopped 06/09. Echocardiogram as above. Responded well to BiPAP with pCO2 now at 58 on 06/10 ABG. Only used the BiPAP for a few hours last night. Remains on nasal cannula. Transferred out of IMU to medicine 06/09. Repeat xray 06/09 persistent LLL opacity, atelectasis VS fluid VS infiltrate so started ceftriaxone and doxycycline (Day 3) with her degree of copd and low grade temp. BCx NGTD. CXR today reviewed showing persistent LLL airspace disease likely atelectasis. (3) Chronic renal failure, stage 3 (moderate): Qualifiers: Chronic kidney disease stage 3 subtype: unspecified whether 3a or 3b Qualified Code(s): N18.30 - Chronic kidney disease, stage 3 unspecified Code(s): N18.30 - Chronic kidney disease, stage 3 unspecified Status: Acute Assessment and Plan: Creatinine back up to 1.5 on 06/10 but better today. Lasix held the other day. Contineu to follow. (4) CHF (congestive heart failure): Code(s): I50.9 - Heart failure, unspecified Status: Acute Assessment and Plan: As above. Probably mild acute on chronic diastolic HF. Treated with IV lasix but now off. Continue to follow. (5) Chronic anemia: Code(s): D64.9 - Anemia, unspecified Status: Chronic Assessment and Plan: Iron studies compatible with iron deficiency anemia so replenished with IV iron(900 mg total). Stool guaiac is negative for blood. Hgb low but stable in the 8 range. B12 level normal. Start oral iron once off Doxy. Continue Protonix. (6) Foot pain, left: Code(s): M79.672 - Pain in left foot Status: Acute Assessment and Plan: Left foot pain after a fall priro to admission. Wasn't bothering her much until today. Left ankle xray on admission showing no fracture. Check left foot xray. (7) Diabetes: Qualifiers: Diabetes mellitus complication status: without complication Diabetes mellitus long-term insulin use: without long-term use Diabetes mellitus type: type 2 Qualified Code(s): E11.9 - Type 2 diabetes mellitus without complications Code(s): E11.9 - Type 2 diabetes mellitus without complications Status: Chronic Assessment and Plan: A1c 5.4 in March. The patient's blood glucose was reviewed on 06/11 Glucose remains mostly well controlled. Continue AccuCheks covering with sliding scale. Hypoglycemia protocol available as needed. Continue Lantus started at 10 Units qd began 06/09 (8) Hypertension: Qualifiers: Hypertension type: unspecified Qualified Code(s): I10 - Essential (primary) hypertension Code(s): I10 - Essential (primary) hypertension Status: Chronic Assessment and Plan: Patient's blood pressure was reviewed on 06/11 Blood pressure remains well controlled. Will continue current medications with amlodipine and Imdur (9) Hyperlipidemia: Qualifiers:
[2020-06-11 13:25] LABS: Lipase 181 U/L (23-300)
[2020-06-11 16:23] LABS: Glucose Point of Care 96 (65-105)
--- NOTE | 2020-06-11 18:30 | PC.NURSE ---
Patient complaining of left sided chest pain (behind her breast) - sudden sharp pains that come and go. Patient jumping off and on with the pains. Daughter at bedside. Patient also c/o nausea (just finished her supper). C/o chronic back pain and mentions that she gets nauseated after eating at times and has to vomit when at home. VSS - HR 60 and telemetry unchanged. O2 sat 97% on 1 liter per nasal cannula. Temp 97.2. B/P 130s/60s. RR 16. Dr. Stahl notified of above complaints. Order received for [place] x1 in one hour after stomach settles from [facility].
[2020-06-11] MEDS: HYDROcodone/acetaminophen (*CRX) 5-325 MG TABLET 1 TAB PO (20:47)
[2020-06-11] MEDS: TIZANIDINE HCL 4 MG TABLET PO (20:47)
[2020-06-11 21:14] LABS: Glucose Point of Care 222 (65-105)
[2020-06-12] VITALS (19 sets, daily range): BP systolic 121–155; BP diastolic 41–52; PULSE 45–94; RESP 11–20; TEMP 36–36.8; O2SAT 96–98
[2020-06-12] MEDS: traMADol HCL (*CRX) 50 MG TABLET PO (00:13)
[2020-06-12] MEDS: ALBUTEROL SULFATE NEB 2.5 MG/0.5 ML INH 5 MG INHALATION ×4 (02:25→21:13)
[2020-06-12 08:01] LABS: Glucose Point of Care 93 (65-105)
[2020-06-12 08:22] LABS: Hematocrit 27.3 % (37.0-47.0); Hemoglobin 8.1 g/dL (12.0-15.0); Mean Corpuscular HGB Conc 29.7 g/dl (32-36); Mean Corpuscular Hemoglobin 29.1 pg (26-34); Mean Corpuscular Volume 98.2 fl (80-100); Mean Platelet Volume 12.8 fl (7.4-10.4); Platelet Count Result 189 k/mm3 (150-375); Red Blood Count 2.78 M/mm3 (4.2-5.4); Red Cell Distribution Width 16.3 % (11.5-14.5); White Blood Count 6.7 K/mm3 (4.5-10.0)
[2020-06-12 08:35] LABS: Albumin Level 3.3 g/dL (3.5-5.1)
[2020-06-12 08:37] LABS: Alanine Aminotransferase 21 U/L (4-35); Alkaline Phosphatase 39 U/L (38-126); Anion Gap 6.99999 mmol/L (8-16); Aspartate Amino Transferase 47 U/L (14-36); Bilirubin,Total 0.5 mg/dL (0.2-1.3); Blood Urea Nitrogen 56 mg/dL (7-17); Calcium 8.3 mg/dL (8.4-10.2); Carbon Dioxide > 40 mmol/L (22-30); Chloride 93 mmol/L (98-107); Creatine Kinase 72 U/L (30-135); Estimated CRCL calculation 29 ml/min; Estimated Glomerular Filt Rate 29; Glucose 99 mg/dL (65-105); Magnesium 2.1 mg/dL (1.6-2.3); Phosphorus 5.1 mg/dL (2.5-4.5); Potassium 4.1 mmol/L (3.4-5.0); Sodium 140 mmol/L (137-145)
[2020-06-12] MEDS: ASPIRIN 81 MG ENTERIC TABLET PO (09:47)
[2020-06-12] MEDS: ATORVASTATIN 40 MG TABLET 80 MG PO (09:47)
[2020-06-12] MEDS: amLODIPine BESYLATE 5 MG TABLET PO (09:47)
[2020-06-12] MEDS: DOXYCYCLINE HYCLATE 100 MG TABLET PO ×2 (09:48→21:05)
[2020-06-12] MEDS: ISOSORBIDE MONONITRATE 30 MG TAB.ER.24H PO (09:48)
[2020-06-12] MEDS: HEPARIN SODIUM 5,000 UNITS/ML VIAL 5000 UNITS SUB-Q ×2 (09:48→21:06)
[2020-06-12] MEDS: PANTOPRAZOLE 40 MG TABLET PO (09:48)
[2020-06-12] MEDS: calcitrioL 0.25 MCG CAPSULE PO (09:48)
[2020-06-12] MEDS: PREGABALIN (*CRX) 50 MG CAPSULE 200 MG PO (09:48)
[2020-06-12] MEDS: FENOFIBRATE NANOCRYSTALLIZED 145 MG TABLET PO (09:48)
[2020-06-12] MEDS: ONDANSETRON INJ 4 MG/2 ML VIAL IV PUSH (09:49)
[2020-06-12] MEDS: INSULIN GLARGINE (*BKC) 100 UNITS/ML 10 UNITS SUB-Q (09:49)
--- NOTE | 2020-06-12 10:34 | PCPTNOTE ---
Attempted therapy session, Pt working with OT. Will attempt again.
[2020-06-12 12:13] LABS: Glucose Point of Care 121 (65-105)
--- NOTE | 2020-06-12 13:37 | PM.PNCARD ---
Progress Note: A&P Assessment and Plan (1) COPD (chronic obstructive pulmonary disease): Qualifiers: COPD type: unspecified COPD Qualified Code(s): J44.9 - Chronic obstructive pulmonary disease, unspecified Code(s): J44.9 - Chronic obstructive pulmonary disease, unspecified Status: Chronic Assessment and Plan: improving on current management (2) Hypertension: Qualifiers: Hypertension type: unspecified Qualified Code(s): I10 - Essential (primary) hypertension Code(s): I10 - Essential (primary) hypertension Status: Chronic (3) Hyperlipidemia: Qualifiers: Hyperlipidemia type: unspecified Qualified Code(s): E78.5 - Hyperlipidemia, unspecified Code(s): E78.5 - Hyperlipidemia, unspecified Status: Chronic (4) Diabetes: Qualifiers: Diabetes mellitus complication status: without complication Diabetes mellitus [facility] insulin use: without meterman use Diabetes mellitus type: type 2 Qualified Code(s): E11.9 - Type 2 diabetes mellitus without complications Code(s): E11.9 - Type 2 diabetes mellitus without complications Status: Chronic (5) CKD (chronic kidney disease): Code(s): N18.9 - Chronic kidney disease, unspecified Status: Acute (6) Chest pain: Qualifiers: Chest pain type: unspecified Qualified Code(s): R07.9 - Chest pain, unspecified Code(s): R07.9 - Chest pain, unspecified Status: Acute Assessment and Plan: Pt does have hx of recurrent chest discomfort. Her troponin was mildly elevated with LBBB on EKG which could be related to her CRI and CHF exacerbation or NSTEMI. Pt states that he has history of stent placement in the past. Social Services Analyst her cardiac history and cardiovascular risk factor will arrange for cardiac cath to evaluate coronary anatomy. Procedure will be scheduled tomorrow with Dr. Rodarte. Risks and benefits of the procedure were d/w pt in detail who agrees for that. She had echocardiogram 06/07/2020: Left ventricular systolic function normal with left ventricular ejection fraction 55-60%, left ventricular size normal, mild left ventricular hypertrophy, E/E prime ratio greater than 15 consistent with elevated left atrial filling pressure, moderate aortic valve stenosis, moderate pulmonary hypertension with estimated pulmonary artery systolic pressure of 60 mm Hg, dilated IVC with patient on BiPAP. (7) Elevated troponin: Code(s): R77.8 - Other specified abnormalities of plasma proteins Status: Acute Subjective Date/time seen: 06/12/20 13:37 Pt feels fine now. Denies CP, SOB or palpitations. Last night pt had an episode of soreness and sharp pain on L side of her chest. Before current admission had episode of central, pressure-like pain in her chest . States that had two coronary stents placed at [facility] in 1998 and 1999. Since the did not have cath done. Pt was seen and examined, chart was reviewed, case was d/w pt's nurse. Review of Systems Review of Systems: All systems reviewed & are unremarkable except as noted in HPI and below Constitutional: Constitutional: Reports as per HPI Eyes: Eyes: Reports as per HPI ENT: Reports system reviewed and no additional complaints, except as documented and Reports as per HPI Cardiovascular: Cardiovascular: Reports as per HPI Respiratory: Respiratory: Reports as per HPI Gastrointestinal: Gastrointestinal: Reports as per HPI Genitourinary: Genitourinary: Reports as per HPI Musculoskeletal: Musculoskeletal: Reports as per HPI Exam Const: General: no acute distress Nutritional Appearance: well nourished Orientation/consciousness: patient oriented x3 HENMT: Head: normal to inspection and atraumatic Ears: hearing grossly normal bilaterally Face and sinus: normal facial exam Eyes: General: appearance normal, both eyes and all related structures Pupils: Equal, round and reactive pupils present E
--- NOTE | 2020-06-12 14:22 | PM.IMPN ---
Progress Note: A&P Assessment and Plan (1) Chest pain: Qualifiers: Chest pain type: unspecified Qualified Code(s): R07.9 - Chest pain, unspecified Code(s): R07.9 - Chest pain, unspecified Status: Acute Assessment and Plan: Patient continues to have CP. Millis to be atypical but Trop higher but no ischemic changes on EKG. Echo (06/07) showing EF 55-60% with Grade 2 diastolic dysfunction, moderate and moderate pulmonary HTN. CP symptoms appear to improve with NTG. Lipase normal and RUQ unrevealing. Cardiology following and is planning [facility] tomorrow afternoon. Continue ASA, Lipitor, and Imdur. (2) COPD (chronic obstructive pulmonary disease): Qualifiers: COPD type: unspecified COPD Qualified Code(s): J44.9 - Chronic obstructive pulmonary disease, unspecified Code(s): J44.9 - Chronic obstructive pulmonary disease, unspecified Status: Chronic Assessment and Plan: Acute on chronic respiratory failure with hypercapnia and hypoxia. ABG 06/07 showing 7.29/106/41. CTA of the chest unremarkable. She was on IV Lasix that stopped 06/09. Echocardiogram as above. Responded well to BiPAP with pCO2 now at 58 on 06/10 ABG. Only used the BiPAP for a few hours last night. Remains on nasal cannula. Transferred out of IMU to medicine 06/09. Repeat xray 06/12 showing airspace opacities at the lung bases with slight worsening on the right, consistent with atelectasis or less likely pneumonia. Currently on ceftriaxone and doxycycline (Day 4) with her degree of copd and low grade temp. BCx NGTD. Down to 1L. Check apnea link. (3) Chronic renal failure, stage 3 (moderate): Qualifiers: Chronic kidney disease stage 3 subtype: unspecified whether 3a or 3b Qualified Code(s): N18.30 - Chronic kidney disease, stage 3 unspecified Code(s): N18.30 - Chronic kidney disease, stage 3 unspecified Status: Acute Assessment and Plan: Creatinine back up to 1.7 today. Lasix held the other day. Low amount of IV fluids started. Continue to follow. (4) CHF (congestive heart failure): Code(s): I50.9 - Heart failure, unspecified Status: Acute Assessment and Plan: As above. Probably mild acute on chronic diastolic HF. Treated with IV lasix but now off. Continue to follow. (5) Chronic anemia: Code(s): D64.9 - Anemia, unspecified Status: Chronic Assessment and Plan: Iron studies compatible with iron deficiency anemia so replenished with IV iron(900 mg total). Stool guaiac is negative for blood. Hgb low but stable in the 8 range. B12 level normal. Start oral iron once off Doxy. Continue Protonix. (6) Foot pain, left: Code(s): M79.672 - Pain in left foot Status: Acute Assessment and Plan: Left foot pain after a fall prior to admission. Wasn't bothering her much until yesterday. Left ankle xray on admission showing no fracture. Left foot xray negative for fracture. Add ice. (7) Diabetes: Qualifiers: Diabetes mellitus complication status: without complication Diabetes mellitus electrocardiograph repairer insulin use: without electrocardiograph repairer use Diabetes mellitus type: type 2 Qualified Code(s): E11.9 - Type 2 diabetes mellitus without complications Code(s): E11.9 - Type 2 diabetes mellitus without complications Status: Chronic Assessment and Plan: A1c 5.4 in March. The patient's blood glucose was reviewed on 06/12 Glucose remains mostly well controlled. Continue AccuCheks covering with sliding scale. Hypoglycemia protocol available as needed. Continue Lantus started at 10 Units qd began 06/09. Hold Lantus tomorrow for [facility]. (8) Hypertension: Qualifiers: Hypertension type: unspecified Qualified Code(s): I10 - Essential (primary) hypertension Code(s): I10 - Essential (primary) hypertension Status: Chronic Assessment and Plan: Patient's blood
[2020-06-12 17:24] LABS: Glucose Point of Care 89 (65-105)
[2020-06-12] MEDS: diphenhydrAMINE HCl CAP 25 MG CAPSULE PO (21:05)
[2020-06-12] MEDS: TIZANIDINE HCL 4 MG TABLET PO (21:05)
[2020-06-12] MEDS: INSULIN ASPART (*BKC) 100 UNITS/ML SUB-Q (21:06)
[2020-06-12 23:49] LABS: Glucose Point of Care 318 (65-105)
[2020-06-13] VITALS (26 sets, daily range): BP systolic 98–189; BP diastolic 42–69; PULSE 48–81; RESP 12–22; TEMP 36.3–36.7; O2SAT 87–100
[2020-06-13 00:26] LABS: Glucose Point of Care 70 (65-105)
--- NOTE | 2020-06-13 01:57 | PCRCNOTE ---
no tx, pt on sleep study
[2020-06-13] MEDS: SODIUM CHLORIDE 0.9% IV 1,000 ML 60 ML IV CONT ×2 (06:13→18:40)
[2020-06-13 06:21] LABS: Glucose Point of Care 88 (65-105)
[2020-06-13 06:40] LABS: Hematocrit 27.9 % (37.0-47.0); Mean Corpuscular HGB Conc 28.7 g/dl (32-36); Mean Corpuscular Hemoglobin 28.4 pg (26-34); Mean Corpuscular Volume 98.9 fl (80-100); Mean Platelet Volume 11.6 fl (7.4-10.4); Platelet Count Result 204 k/mm3 (150-375); Red Blood Count 2.82 M/mm3 (4.2-5.4); Red Cell Distribution Width 16.2 % (11.5-14.5); White Blood Count 6.6 K/mm3 (4.5-10.0)
[2020-06-13 07:04] LABS: Anion Gap 4.99999 mmol/L (8-16); Blood Urea Nitrogen 54 mg/dL (7-17); Calcium 8.4 mg/dL (8.4-10.2); Carbon Dioxide > 40 mmol/L (22-30); Chloride 95 mmol/L (98-107); Estimated CRCL calculation 29 ml/min; Estimated Glomerular Filt Rate 29; Glucose 82 mg/dL (65-105); Magnesium 2.1 mg/dL (1.6-2.3); Potassium 3.7 mmol/L (3.4-5.0); Sodium 140 mmol/L (137-145)
[2020-06-13] MEDS: ALBUTEROL SULFATE NEB 2.5 MG/0.5 ML INH 5 MG INHALATION ×3 (08:11→19:22)
--- NOTE | 2020-06-13 08:37 | WPDMODSED ---
Moderate Sedation Note-Pt Data Patient Data Allergies Allergy/AdvReac Type Severity Reaction Status Date / Time amitriptyline Allergy Unknown Verified 06/08/20 09:58 chlordiazepoxide Allergy Unknown Verified 06/08/20 09:59 Home Medications Medication Instructions Recorded Confirmed Type albuterol sulfate [ProAir HFA] 2 puff INHALATION DIRECTED PRN 06/07/20 06/07/20 History amlodipine 5 mg PO DAILY 06/07/20 06/07/20 History atorvastatin 80 mg PO DAILY 06/07/20 06/07/20 History biotin 1 mg PO DAILY 06/07/20 06/07/20 History calcitriol 0.25 mcg PO DAILY 06/07/20 06/07/20 History cephalexin 250 mg PO BID 06/07/20 06/07/20 History nzof-rpl-gnfymfhc-oleic-dha [Adult 1 tablet PO DAILY 06/07/20 06/07/20 History Monroe Plus DHA] cranberry extract [cranberry] 250 mg PO DAILY 06/07/20 06/07/20 History fenofibrate nanocrystallized 145 mg PO DAILY 06/07/20 06/07/20 History insulin glargine [Lantus Solostar 26 unit SUBCUT DAILY 06/07/20 06/07/20 History U-100 Insulin] insulin lispro [Humalog KwikPen 5 unit SUBCUT TIDWMEAL 06/07/20 06/07/20 History Insulin] isosorbide mononitrate 30 mg PO DAILY 06/07/20 06/07/20 History pantoprazole 40 mg PO DAILY 06/07/20 06/07/20 History pregabalin 200 mg PO DAILY 06/07/20 06/07/20 History tizanidine 4 mg PO DAILY 06/07/20 06/07/20 History torsemide 20 mg PO DAILY 06/07/20 06/07/20 History Current Medications: Active Medications Albuterol (Albuterol Sulfate Neb 2.5 Mg/0.5 Ml Inh) 5 mg INHALATION Q6HRT [facility] Last Admin: 06/13/20 08:11 Dose: 5 mg Documented by: Amlodipine Besylate (Amlodipine Besylate 5 Mg Tablet) 5 mg PO DAILY [facility] Last Admin: 06/12/20 09:47 Dose: 5 mg Documented by: Aspirin (Aspirin 81 Mg Enteric Tablet) 81 mg PO QAM [facility] Last Admin: 06/12/20 09:47 Dose: 81 mg Documented by: Atorvastatin Calcium (Atorvastatin 40 Mg Tablet) 80 mg PO DAILY [facility] Last Admin: 06/12/20 09:47 Dose: 80 mg Documented by: Calcitriol (Calcitriol 0.25 Mcg Capsule) 0.25 mcg PO DAILY [facility] Last Admin: 06/12/20 09:48 Dose: 0.25 mcg Documented by: Dextrose (Dextrose 50% 25 Gm/50 Ml Syringe) 12.5 gm IV PUSH PRN PRN; Protocol PRN Reason: Hypoglycemia Diphenhydramine HCl (Diphenhydramine Hcl Cap 25 Mg Capsule) 25 mg PO ONCE ONE Stop: 06/13/20 12:01 Doxycycline Hyclate (Doxycycline Hyclate 100 Mg Tablet) 100 mg PO Q12HR [facility] Last Admin: 06/12/20 21:05 Dose: 100 mg Documented by: Fenofibrate (Fenofibrate Nanocrystallized 145 Mg Tablet) 145 mg PO DAILY [facility] Last Admin: 06/12/20 09:48 Dose: 145 mg Documented by: Glucagon (Glucagon For Inj 1 Mg Vial) 1 mg IM PRN PRN; Protocol PRN Reason: Hypoglycemia Glucose (Glucose Oral Gel 15 Gm Of Glucse In 37.5 Gm Tube) 15 gm PO PRN PRN; Protocol PRN Reason: Hypoglycemia Heparin Sodium (Porcine) (Heparin Sodium 5,000 Units/Ml Vial) 5,000 units SUB-Q Q12HR [facility] Last Admin: 06/13/20 08:00 Dose: Not Given Documented by: Dextrose (Dextrose 5% 1,000 Ml) 1,000 mls @ 100 mls/hr IVPB PRN PRN; Protocol PRN Reason: Hypoglycemia Ceftriaxone Sodium/Dextrose (Rocephin 1 Gm/D5w 50 Ml) 1 gm in 50 mls @ 100 mls/hr IVPB Q24H [facility] Last Infusion: 06/12/20 18:42 Dose: Infused Documented by: Sodium Chloride (Normal Saline Iv) 1,000 mls @ 60 mls/hr IV CONT .[id number] [facility] Last Admin: 06/13/20 06:13 Dose: 60 mls/hr Documented by: Insulin Aspart (Insulin Aspart (*Bkc) 100 Units/Ml) 3 - 6 units SUB-Q TIDWM [facility]; Protocol Last Admin: 06/12/20 17:32 Dose: Not Given Documented by: Insulin Glargine (Insulin Glargine (*Bkc) 100 Units/Ml) 10 units SUB-Q DAILY [facility] Last Admin: 06/12/20 09:49 Dose: 10 units Documented by: Isosorbide Mononitrate (Isosorbide Mononitrate 30 Mg Tab.Er.24h) 30 mg PO QAM [facility] Last Admin: 06/12/20 09:48 Dose: 30 mg Documented by: Miconazole Nitrate (Miconazole 2% Antifungal Ointment 56 Gm) 1 applic TOPICAL Q12HR [facility] Last Admin: 06/12/20 21:06 Dose: 1 applic Documented by: Nitroglycerin (Nitroglycerin Sl 0.4 Mg Tablet) 0.
--- NOTE | 2020-06-13 09:04 | PCOTNOTE ---
Attempted to see patient this am, however patient off floor for cardiac cath.
--- NOTE | 2020-06-13 09:33 | WPDCARDPROC ---
Cardiac Cath Procedure Note Date of procedure:: 06/13/20 Performing physician:: Dre Rodarte MD Procedure: 1. Left heart catheterization, selective coronary angiogram. 2. Left anterior descending artery angioplasty with stent placement 3. Angio-Seal device for arterial hemostasis 4. Conscious sedation. Starting time was 8:40 a.m. ending time is 9:30 a.m. Lead Teacher: Dr. Dre Rodarte. Indication: Recurrent chest pain with history of non ST elevation myocardial infarction Complications: None. Sedation: Conscious sedation, local anesthesia, using 1 mg of Versed said, 25 mcg of fentanyl, and using 1% lidocaine for local anesthesia. History: 80-year-old lady with history of known coronary disease previous angioplasty stent placement to the RCA, was admitted to the hospital because of shortness of breath noted to have COPD exacerbation, she had few episodes of chest pain, noted to have slightly elevated troponin. She was treated medically and was initially planned to treat her medically but she continued to have recurrent episodes of chest pain due to that she was brought to the catheterization laboratory technician for elective evaluation and for possible treatment. Technique: After informed consent was obtained from patient, was brought to the catheterization laboratory technician, put in the catheterization laboratory technician table, prepped and draped in usual sterile fashion. Five Maltese sheath was inserted into the right common femoral artery, through the sheath 5 Maltese JL4 catheter inserted, advanced to the left coronary artery, left coronary artery angiogram was obtained. The catheter was exchanged over guidewire into a 5 Maltese JR4 catheter, advanced to the right coronary artery, right coronary artery angiogram was obtained. The catheter then was exchanged over guidewire into this 5 Maltese pigtail catheter, advanced to left ventricle, left ventricular pressure was obtained, no LV g was done due to elevated creatinine, she tolerated this part of procedure well with no complication. Coronary intervention: The sheath was exchanged over guidewire to 6 Maltese sheath, CLS 3.5 guide was used, advanced to the left coronary artery and repeat angiogram was done, subsequently BMW wire was inserted advanced through the lesion, and emerge 3 0 x 12 mm balloon was used for angioplasty to the mid LAD, we went up to 8 atmospheric pressure, for 30 seconds, the balloon was withdrawn and exchanged over guidewire to stent Xience 3.5 x 12 mm was used, with 12 atmospheric pressure for 30 seconds, post stent placement angiogram was done with good results. The wire then was pulled final angiogram was done in 2 different angles, and the guide was removed, sheath was removed after checking the access location with angiogram, and Angio-Seal device was applied. She tolerated procedure well no complication taken to the catheterization laboratory technician her room stable condition stable vital signs. she received Angiomax bolus and a drip, will continue the drip for total of 2 hours Hemodynamics: aortic pressure 124/50 . LV pressure 120/04 with LVEDP of 22 mmHg Angiographic findings: Left main: Medium size artery no significant disease or stenosis. Lad: large caliber artery, Showed mid LAD discrete lesion 75-90%, but distally no other lesions diagnose are intact with no other lesion Left circumflex artery, medium size artery, showed minimal irregularity at the midsection but no obstructive lesions RCA: Dominant vessel, showed mid RCA patent stent with mild InStent restenosis and proximal to the stent 50% narrowing, distal stent is patent with no significant disease noted LV: was not done due to elevated creatinine but LV is normal on echo Summary: single-vessel significant coronary disease with mid LAD stenosis, in view of history of recent non STEMI, treated with balloon angioplasty followed by stent placement with good results Recommendation: continue the Angiomax for total of 2 hours, continue with aspirin and Brilinta for 1 year.
--- NOTE | 2020-06-13 09:41 | PM.PNCARD ---
Progress Note: A&P Assessment and Plan (1) COPD (chronic obstructive pulmonary disease): Qualifiers: COPD type: unspecified COPD Qualified Code(s): J44.9 - Chronic obstructive pulmonary disease, unspecified Code(s): J44.9 - Chronic obstructive pulmonary disease, unspecified Status: Chronic Assessment and Plan: improving on current management (2) Hypertension: Qualifiers: Hypertension type: unspecified Qualified Code(s): I10 - Essential (primary) hypertension Code(s): I10 - Essential (primary) hypertension Status: Chronic (3) Hyperlipidemia: Qualifiers: Hyperlipidemia type: unspecified Qualified Code(s): E78.5 - Hyperlipidemia, unspecified Code(s): E78.5 - Hyperlipidemia, unspecified Status: Chronic (4) Diabetes: Qualifiers: Diabetes mellitus type: type 2 Diabetes mellitus detention insulin use: without terminal carman use Diabetes mellitus complication status: without complication Qualified Code(s): E11.9 - Type 2 diabetes mellitus without complications Code(s): E11.9 - Type 2 diabetes mellitus without complications Status: Chronic (5) CKD (chronic kidney disease): Code(s): N18.9 - Chronic kidney disease, unspecified Status: Acute (6) Chest pain: Qualifiers: Chest pain type: unspecified Qualified Code(s): R07.9 - Chest pain, unspecified Code(s): R07.9 - Chest pain, unspecified Status: Acute Assessment and Plan: she has slight elevated troponin, and she had recurrent episode of chest pain, she underwent cardiac catheterization today revealing significant disease of the mid LAD, treated with angioplasty stent placement. She needs to stay on aspirin and Plavix or Brilinta for 1 year. (7) Elevated troponin: Code(s): R77.8 - Other specified abnormalities of plasma proteins Status: Acute Assessment and Plan: with non ST elevation myocardial infarction, status post cardiac catheterization now with significant disease of the LAD treated with angioplasty and stent placement Subjective Date/time seen: 06/13/20 09:41 She feels okay today, complained of mild shortness of breath, she underwent cardiac catheterization revealing significant disease of the mid LAD, she underwent angioplasty stent placement with good results Exam Narrative: Exam Narrative: Minimally responsive, generalized tremors. More pronounced in upper exts. Const: General: no acute distress Nutritional Appearance: well nourished Orientation/consciousness: patient oriented x3 HENMT: Head: normal to inspection and atraumatic Ears: hearing grossly normal bilaterally Face and sinus: normal facial exam Eyes: General: appearance normal, both eyes and all related structures Sclera: sclerae normal Pupils: Equal, round and reactive pupils present EOM: EOMs intact bilaterally Neck: Neck: supple and no JVD Carotids: no bruits Chest: Chest palpation & inspection: normal inspection of the chest Resp: Effort & Inspection: normal respiratory effort and no respiratory distress Auscultation: clear to auscultation bilaterally and diminished lung sounds Cardio: Jugular venous distension: no JVD Rate: regular rate and not tachycardic Rhythm: regular rhythm Heart sounds: S1 normal heart sound present, S2 normal heart sound present, no gallops, no murmurs and no rubs Peripheral pulses: Peripheral pulses 2+ throughout GI: Auscultation: normal bowel sounds Skin: General skin exam: normal color Neuro: General: patient oriented x3 Cranial nerves: Yes Equal, round and reactive pupils present and Yes hard of hearing Extrem: General: normal to inspection, no clubbing, cyanosis or edema and edema Psych: Affect: normal affect Objective Data Vital Signs Vital Signs: Vital Signs - 24 hr 06/12/20 12:00 06/12/20 13:20 06/12/20 14:00 Temperature 36.6 C Pulse Rate 67 59 L 57 L Respiratory Rate
--- NOTE | 2020-06-13 10:01 | ECG_ITS ---
Measurements Intervals B[place] Rate: 57 P: -48 SD: 137 QRS: -9 QRSD: 152 T: -26 QT: 502 QTc: 490 Interpretive Statements SINUS BRADYCARDIA ATRIAL PREMATURE COMPLEX LEFT BUNDLE BRANCH BLOCK ABNORMAL ECG Electronically Signed On 06-13-2020 11:40:39 CDT by Rick Zapata D.O.
--- NOTE | 2020-06-13 10:18 | PM.IMPN ---
Progress Note: A&P Assessment and Plan (1) Chest pain: Qualifiers: Chest pain type: unspecified Qualified Code(s): R07.9 - Chest pain, unspecified Code(s): R07.9 - Chest pain, unspecified Status: Acute Assessment and Plan: Patient continues to have CP some felt to be atypical but Trop higher but no ischemic changes on EKG. Echo (06/07) showing EF 55-60% with Grade 2 diastolic dysfunction, moderate and moderate pulmonary HTN but no wall motion abnormalities. CP symptoms appear to improve with NTG. Lipase normal and RUQ unrevealing. Cardiology following and is planning [facility] this morning. Continue ASA, Lipitor, and Imdur. (2) COPD (chronic obstructive pulmonary disease): Qualifiers: COPD type: unspecified COPD Qualified Code(s): J44.9 - Chronic obstructive pulmonary disease, unspecified Code(s): J44.9 - Chronic obstructive pulmonary disease, unspecified Status: Chronic Assessment and Plan: Acute on chronic respiratory failure with hypercapnia and hypoxia. ABG 06/07 showing 7.29/106/41. CTA of the chest unremarkable. She was on IV Lasix that stopped 06/09. Echocardiogram as above. Responded well to BiPAP with pCO2 now at 58 on 06/10 ABG. Remains on nasal cannula. Transferred out of IMU to medicine 06/09. Repeat xray 06/12 showing airspace opacities at the lung bases with slight worsening on the right, consistent with atelectasis or less likely pneumonia. Currently on ceftriaxone and doxycycline (Day 5) with her degree of COPD and low grade temp. BCx NGTD. Down to 1L. Apnea link showing AHI 6 and RI 9 on 1L O2 lasting 6+Hrs of sleep. Continue supplemental O2. (3) Chronic renal failure, stage 3 (moderate): Qualifiers: Chronic kidney disease stage 3 subtype: unspecified whether 3a or 3b Qualified Code(s): N18.30 - Chronic kidney disease, stage 3 unspecified Code(s): N18.30 - Chronic kidney disease, stage 3 unspecified Status: Acute Assessment and Plan: Creatinine stable at 1.7 today. Lasix held the other day. Low amount of IV fluids started prior to [facility] yesterday. Continue to follow. Monitor Cr closely post-heart cath. (4) CHF (congestive heart failure): Code(s): I50.9 - Heart failure, unspecified Status: Acute Assessment and Plan: As above. Probably mild acute on chronic diastolic HF treated with IV lasix but now off. Continue to follow. Watch fluid status and renal function. (5) Chronic anemia: Code(s): D64.9 - Anemia, unspecified Status: Chronic Assessment and Plan: Iron studies compatible with iron deficiency anemia so replenished with IV iron(900 mg total). Stool guaiac is negative for blood. Hgb low but stable in the 8 range. B12 level normal. Start oral iron once off Doxy. Continue Protonix. (6) Foot pain, left: Code(s): M79.672 - Pain in left foot Status: Acute Assessment and Plan: Left foot pain after a fall prior to admission. Wasn't bothering her much until the other day. Left ankle xray on admission showing no fracture. Left foot xray negative for fracture. Continue ice. (7) Diabetes: Qualifiers: Diabetes mellitus complication status: without complication Diabetes mellitus pick up insulin use: without shelter use Diabetes mellitus type: type 2 Qualified Code(s): E11.9 - Type 2 diabetes mellitus without complications Code(s): E11.9 - Type 2 diabetes mellitus without complications Status: Chronic Assessment and Plan: A1c 5.4 in March. The patient's blood glucose was reviewed on 06/13 Glucose remains mostly well controlled but seems to have high glucose just before bedtime. Continue AccuCheks covering with sliding scale. Hypoglycemia protocol available as needed. Lantus 10 Units qd began 06/09. Lantus currently on hold for [facility]. (8) Hypertension: Qualifiers: Hypertensi
--- NOTE | 2020-06-13 10:45 | PCPTNOTE ---
The PT treatment was not completed today due to procedure performed. Will continue per Plan of Care frequency and duration.
[2020-06-13] MEDS: DOXYCYCLINE HYCLATE 100 MG TABLET PO ×2 (11:35→21:09)
[2020-06-13] MEDS: amLODIPine BESYLATE 5 MG TABLET PO (11:35)
[2020-06-13] MEDS: ISOSORBIDE MONONITRATE 30 MG TAB.ER.24H PO (11:36)
[2020-06-13] MEDS: FENOFIBRATE NANOCRYSTALLIZED 145 MG TABLET PO (11:36)
[2020-06-13] MEDS: PANTOPRAZOLE 40 MG TABLET PO (11:36)
[2020-06-13] MEDS: calcitrioL 0.25 MCG CAPSULE PO (11:36)
[2020-06-13] MEDS: ATORVASTATIN 40 MG TABLET 80 MG PO (11:36)
[2020-06-13] MEDS: ASPIRIN 81 MG ENTERIC TABLET PO (11:36)
[2020-06-13] MEDS: diphenhydrAMINE HCl CAP 25 MG CAPSULE PO (11:42)
[2020-06-13] MEDS: PREGABALIN (*CRX) 50 MG CAPSULE 200 MG PO (11:43)
--- NOTE | 2020-06-13 12:00 | PC.NURSE ---
Clarified telemetry orders with Dr. Rodarte. Per Dr. Rodarte, patient does not need to have Q2H telemetry orders, only Q4H. Also clarified PTT order that is currently on work list for if patient received heparin. Per Dr. Rodarte, we do not need to order PTT's. Will discontinue this intervention.
[2020-06-13] MEDS: SODIUM CHLORIDE 0.9% IV 1,000 ML 125 ML IV CONT (12:22)
[2020-06-13 12:28] LABS: Glucose Point of Care 84 (65-105)
--- NOTE | 2020-06-13 14:07 | PC.NURSE ---
This patient, Chandni Vicente, was transferred to IMU on 06/13/20 at 1330. Personal belongings sent with patient. Report given to Phyllis JUDGE. Appropriate documentation sent with patient.
--- NOTE | 2020-06-13 14:25 | PC.NURSE ---
This patient, Chandni Vicente, was received from [facility] on 06/13/20 at 1335. Personal belongings list checked and signed. Patient/family oriented to unit policies and routines
[2020-06-13] MEDS: traMADol HCL (*CRX) 50 MG TABLET PO ×2 (14:53→21:08)
[2020-06-13 17:35] LABS: Glucose Point of Care 144 (65-105)
[2020-06-13] MEDS: INSULIN ASPART (*BKC) 100 UNITS/ML SUB-Q (18:44)
[2020-06-13 20:38] LABS: Glucose Point of Care 167 (65-105)
[2020-06-13] MEDS: TIZANIDINE HCL 4 MG TABLET PO (21:10)
[2020-06-13] MEDS: HEPARIN SODIUM 5,000 UNITS/ML VIAL 5000 UNITS SUB-Q (21:10)
[2020-06-13] MEDS: TICAGRELOR 90 MG TABLET PO (21:10)
[2020-06-14] VITALS (26 sets, daily range): BP systolic 107–172; BP diastolic 32–98; PULSE 43–98; RESP 14–25; TEMP 36.2–36.6; O2SAT 66–100
[2020-06-14] MEDS: ALBUTEROL SULFATE NEB 2.5 MG/0.5 ML INH 5 MG INHALATION ×4 (01:31→20:30)
--- NOTE | 2020-06-14 02:51 | PC.NURSE ---
Patient refused BiPAP at on 06/13/20 due to anxiety. Reported to Arminda Morris. No new orders received.
[2020-06-14] MEDS: traMADol HCL (*CRX) 50 MG TABLET PO ×2 (04:18→14:32)
[2020-06-14 05:07] LABS: Hematocrit 25.3 % (37.0-47.0); Hemoglobin 7.3 g/dL (12.0-15.0); Mean Corpuscular HGB Conc 28.9 g/dl (32-36); Mean Corpuscular Hemoglobin 28.4 pg (26-34); Mean Corpuscular Volume 98.4 fl (80-100); Mean Platelet Volume 12.3 fl (7.4-10.4); Platelet Count Result 189 k/mm3 (150-375); Red Blood Count 2.57 M/mm3 (4.2-5.4); Red Cell Distribution Width 16.9 % (11.5-14.5)
--- NOTE | 2020-06-14 05:11 | ECG_ITS ---
Measurements Intervals [place] Rate: 43 P: -42 CO: 139 QRS: -10 QRSD: 150 T: 23 QT: 517 QTc: 441 Interpretive Statements SINUS BRADYCARDIA LEFT BUNDLE BRANCH BLOCK ABNORMAL ECG Electronically Signed On 06-14-2020 6:39:51 CDT by Rick Zapata D.O.
[2020-06-14 05:26] LABS: Anion Gap 1 mmol/L (8-16); Blood Urea Nitrogen 48 mg/dL (7-17); Calcium 8.3 mg/dL (8.4-10.2); Carbon Dioxide 39 mmol/L (22-30); Chloride 100 mmol/L (98-107); Estimated CRCL calculation 35 ml/min; Estimated Glomerular Filt Rate 36; Glucose 89 mg/dL (65-105); Potassium 3.8 mmol/L (3.4-5.0); Sodium 140 mmol/L (137-145)
--- NOTE | 2020-06-14 08:57 | PCDIET ---
Weekly nutritional screen. Patient is tolerating current diet with adequate intake. No weight loss reported. BMI 39.5. No nutritional needs at this time.
[2020-06-14 09:41] LABS: Glucose Point of Care 93 (65-105)
[2020-06-14] MEDS: INSULIN GLARGINE (*BKC) 100 UNITS/ML 26 UNITS SUB-Q (11:16)
[2020-06-14] MEDS: INSULIN GLARGINE (*BKC) 100 UNITS/ML 10 UNITS SUB-Q (11:16)
[2020-06-14] MEDS: ATORVASTATIN 40 MG TABLET 80 MG PO (11:17)
[2020-06-14] MEDS: FENOFIBRATE NANOCRYSTALLIZED 145 MG TABLET PO (11:17)
[2020-06-14] MEDS: calcitrioL 0.25 MCG CAPSULE PO (11:17)
[2020-06-14] MEDS: PANTOPRAZOLE 40 MG TABLET PO (11:17)
[2020-06-14] MEDS: HEPARIN SODIUM 5,000 UNITS/ML VIAL 5000 UNITS SUB-Q ×2 (11:17→22:30)
[2020-06-14] MEDS: DOXYCYCLINE HYCLATE 100 MG TABLET PO ×2 (11:18→20:53)
[2020-06-14] MEDS: ISOSORBIDE MONONITRATE 30 MG TAB.ER.24H PO (11:18)
[2020-06-14] MEDS: TIZANIDINE HCL 4 MG TABLET PO ×2 (11:19→20:55)
[2020-06-14] MEDS: TORSEMIDE 20 MG TABLET PO (11:19)
[2020-06-14] MEDS: TICAGRELOR 90 MG TABLET PO (11:19)
[2020-06-14] MEDS: amLODIPine BESYLATE 5 MG TABLET PO (11:19)
[2020-06-14] MEDS: ASPIRIN 81 MG ENTERIC TABLET PO (11:19)
[2020-06-14] MEDS: PREGABALIN (*CRX) 50 MG CAPSULE 200 MG PO (11:22)
[2020-06-14] MEDS: SODIUM CHLORIDE 0.9% IV 250 ML 30 ML IV CONT (12:12)
[2020-06-14] MEDS: TUBING, BLOOD PLUM PUMP TUBING 1 EACH XX (12:13)
[2020-06-14] MEDS: INSULIN ASPART (*BKC) 100 UNITS/ML SUB-Q (12:17)
--- NOTE | 2020-06-14 12:25 | PM.PNCARD ---
Progress Note: A&P Assessment and Plan (1) Sinus bradycardia: Code(s): R00.1 - Bradycardia, unspecified Status: Acute Assessment and Plan: With no other explanation this is likely due to Brillinta (rare side effect) Asymptomatic. BP stable. Will d/c Brillinta. Start PLavix. If HR drops further may use atropine otherwise heart rate should improve off brillinta (2) Elevated troponin: Code(s): R77.8 - Other specified abnormalities of plasma proteins Status: Acute Assessment and Plan: status post cardiac catheterization with PCI to LAD Continue ASA. Switch Brillinta to Plavix. (3) COPD (chronic obstructive pulmonary disease): Qualifiers: COPD type: unspecified COPD Qualified Code(s): J44.9 - Chronic obstructive pulmonary disease, unspecified Code(s): J44.9 - Chronic obstructive pulmonary disease, unspecified Status: Chronic Assessment and Plan: improving on current management (4) Hypertension: Qualifiers: Hypertension type: unspecified Qualified Code(s): I10 - Essential (primary) hypertension Code(s): I10 - Essential (primary) hypertension Status: Chronic (5) Hyperlipidemia: Qualifiers: Hyperlipidemia type: unspecified Qualified Code(s): E78.5 - Hyperlipidemia, unspecified Code(s): E78.5 - Hyperlipidemia, unspecified Status: Chronic Subjective Date/time seen: 06/14/20 12:25 Bradycardia since this morning. HR in low 30s. Denies dizziness or lightheadedness though admits to fatigue. Receiving transfusion for hg 7.3. Review of Systems Constitutional: Constitutional: Reports as per HPI Eyes: Eyes: Reports as per HPI ENT: Reports system reviewed and no additional complaints, except as documented and Reports as per HPI Cardiovascular: Cardiovascular: Reports as per HPI Respiratory: Respiratory: Reports as per HPI Gastrointestinal: Gastrointestinal: Reports as per HPI Genitourinary: Genitourinary: Reports as per HPI Musculoskeletal: Musculoskeletal: Reports as per HPI and Reports back pain Exam Narrative: Exam Narrative: In no acute distress Const: General: no acute distress Nutritional Appearance: well nourished Orientation/consciousness: patient oriented x3 HENMT: Head: normal to inspection and atraumatic Ears: hearing grossly normal bilaterally Face and sinus: normal facial exam Eyes: General: appearance normal, both eyes and all related structures Sclera: sclerae normal Pupils: Equal, round and reactive pupils present EOM: EOMs intact bilaterally Neck: Neck: supple and no JVD Carotids: no bruits Chest: Chest palpation & inspection: normal inspection of the chest Resp: Effort & Inspection: normal respiratory effort and no respiratory distress Auscultation: clear to auscultation bilaterally and diminished lung sounds Cardio: Jugular venous distension: no JVD Rate: regular rate and not tachycardic Rhythm: regular rhythm Heart sounds: S1 normal heart sound present, S2 normal heart sound present, no gallops, no murmurs and no rubs Peripheral pulses: Peripheral pulses 2+ throughout GI: Auscultation: normal bowel sounds Skin: General skin exam: normal color Neuro: General: patient oriented x3 Cranial nerves: Yes Equal, round and reactive pupils present and Yes hard of hearing Extrem: General: normal to inspection, no clubbing, cyanosis or edema and edema Psych: Affect: normal affect Objective Data Vital Signs Vital Signs: Vital Signs - 24 hr 06/13/20 13:00 06/13/20 13:30 06/13/20 14:00 Temperature 36.7 C 36.3 C L Pulse Rate 62 63 68 Respiratory Rate 18 12 18 Blood Pressure 152/50 H 153/60 H Pulse Oximetry 97 97 06/13/20 14:10 06/13/20 14:30 06/13/20 16:00 Temperature 36.3 C L 36.6 C Pulse Rate 71 56 L 66 Respiratory Rate 18 14 18 Blood Pressure 121/55 L 168/51 H Pulse Oximetry 99 98 06/13/20 19:23 06/13/20 19:27 06/13/20 19:33 T
[2020-06-14 12:26] LABS: Glucose Point of Care 173 (65-105)
--- NOTE | 2020-06-14 12:38 | ECG_ITS ---
Measurements Intervals [place] Rate: 40 P: NM: 0 QRS: -12 QRSD: 153 T: 54 QT: 519 QTc: 425 Interpretive Statements SINUS BRADYCARDIA WITH SINUS ARRHYTHMIA LEFT BUNDLE BRANCH BLOCK ABNORMAL ECG Electronically Signed On 06-14-2020 13:24:22 CDT by Rick Zapata D.O.
[2020-06-14] MEDS: SODIUM CHLORIDE 0.9% IV 1,000 ML 60 ML IV CONT (14:32)
[2020-06-14 15:08] LABS: Hematocrit 28.4 % (37.0-47.0); Hemoglobin 8.3 g/dL (12.0-15.0)
--- NOTE | 2020-06-14 15:16 | PM.IMPN ---
Progress Note: A&P Assessment and Plan (1) Chest pain: Qualifiers: Chest pain type: unspecified Qualified Code(s): R07.9 - Chest pain, unspecified Code(s): R07.9 - Chest pain, unspecified Status: Acute Assessment and Plan: Patient continues to have CP some felt to be atypical but Trop higher but no ischemic changes on EKG. Echo (06/07) showing EF 55-60% with Grade 2 diastolic dysfunction, moderate and moderate pulmonary HTN but no wall motion abnormalities. CP symptoms appear to improve with NTG. Lipase normal and RUQ unrevealing. LHC on 06/13 showing mid LAD discrete lesion 75-90% treated with balloon angioplasty followed by stent placement with good results. Continue ASA, Plavix, Lipitor, and Imdur. No beta rafa due to her bradycardia. TSH okay. Continue to monitor on tele. (2) COPD (chronic obstructive pulmonary disease): Qualifiers: COPD type: unspecified COPD Qualified Code(s): J44.9 - Chronic obstructive pulmonary disease, unspecified Code(s): J44.9 - Chronic obstructive pulmonary disease, unspecified Status: Chronic Assessment and Plan: Acute on chronic respiratory failure with hypercapnia and hypoxia. ABG 06/07 showing 7.29/106/41. CTA of the chest unremarkable. She was on IV Lasix that stopped 06/09. Echocardiogram as above. Responded well to BiPAP with pCO2 now at 58 on 06/10 ABG. Remains on nasal cannula. Transferred out of IMU to medicine 06/09. Repeat xray 06/12 showing airspace opacities at the lung bases with slight worsening on the right, consistent with atelectasis or less likely pneumonia. Currently on ceftriaxone and doxycycline (Day 6) with her degree of COPD and low grade temp. BCx NGTD. Apnea link showing AHI 6 and RI 9 on 1L O2 lasting 6+Hrs of sleep. Continue supplemental O2. Wean as tolerated. (3) Chronic renal failure, stage 3 (moderate): Qualifiers: Chronic kidney disease stage 3 subtype: unspecified whether 3a or 3b Qualified Code(s): N18.30 - Chronic kidney disease, stage 3 unspecified Code(s): N18.30 - Chronic kidney disease, stage 3 unspecified Status: Acute Assessment and Plan: Creatinine better at 1.4 today. Lasix IV held the other day. IV fluids started prior to [facility] yesterday. Continue to follow. Monitor Cr closely post-heart cath. (4) CHF (congestive heart failure): Code(s): I50.9 - Heart failure, unspecified Status: Acute Assessment and Plan: As above. Probably mild acute on chronic diastolic HF treated with IV lasix but now off. Home Demadex resumed. Continue to follow. Stop IVF. Watch fluid status and renal function. (5) Chronic anemia: Code(s): D64.9 - Anemia, unspecified Status: Chronic Assessment and Plan: Iron studies compatible with iron deficiency anemia so replenished with IV iron(900 mg total). Stool guaiac is negative for blood. B12 level normal. Hgb dropped to 7.3 and given that she just had a cardiac procedure, will transfuse 1unit PRBC. Start oral iron once off Doxy. Continue Protonix. (6) Foot pain, left: Code(s): M79.672 - Pain in left foot Status: Acute Assessment and Plan: Left foot pain after a fall prior to admission. Wasn't bothering her much until the other day. Left ankle xray on admission showing no fracture. Left foot xray negative for fracture. Continue ice. (7) Diabetes: Qualifiers: Diabetes mellitus complication status: without complication Diabetes mellitus [employer] insulin use: without [employer] use Diabetes mellitus type: type 2 Qualified Code(s): E11.9 - Type 2 diabetes mellitus without complications Code(s): E11.9 - Type 2 diabetes mellitus without complications Status: Chronic Assessment and Plan: A1c 5.4 in March. The patient's blood glucose was reviewed on 06/14 Glucose remains mostly well controlled. Overall, she is too
[2020-06-14 16:26] LABS: Glucose Point of Care 61 (65-105)
[2020-06-14 16:59] LABS: Glucose Point of Care 102 (65-105)
[2020-06-14 17:37] LABS: Glucose Point of Care 67 (65-105)
[2020-06-14 18:19] LABS: Glucose Point of Care 94 (65-105)
[2020-06-14 19:27] LABS: Glucose Point of Care 91 (65-105)
[2020-06-14 20:54] LABS: Glucose Point of Care 81 (65-105)
[2020-06-14] MEDS: CLOPIDOGREL BISULFATE 300 MG TABLET PO (20:55)
[2020-06-15] VITALS (22 sets, daily range): BP systolic 131–154; BP diastolic 45–63; PULSE 41–67; RESP 16–22; TEMP 36.1–36.4; O2SAT 96–100
[2020-06-15] MEDS: traMADol HCL (*CRX) 50 MG TABLET PO ×3 (00:19→18:46)
[2020-06-15 02:33] LABS: Glucose Point of Care 101 (65-105)
[2020-06-15 02:33] LABS: Glucose Point of Care 69 (65-105)
[2020-06-15 02:33] LABS: Glucose Point of Care 85 (65-105)
[2020-06-15] MEDS: ALBUTEROL SULFATE NEB 2.5 MG/0.5 ML INH 5 MG INHALATION ×3 (03:47→14:35)
[2020-06-15 05:03] LABS: Glucose Point of Care 104 (65-105)
[2020-06-15 05:03] LABS: Glucose Point of Care 61 (65-105)
--- NOTE | 2020-06-15 05:13 | PC.NURSE ---
Per MD order, blood sugars have been checked Q2 hours. Pt had 2 BG below 70, pt was alert and oriented, pt given juice. BG rechecked shortly after, BG above 100.
[2020-06-15 05:19] LABS: Basophils Percent Auto 0.5 % (0.2-1.2); Eosinophils Absolute Auto 0.2 K/mm3 (0-0.3); Hematocrit 29.4 % (37.0-47.0); Hemoglobin 8.7 g/dL (12.0-15.0); Immature Granulocyte Absolute 0.05 K/mm3 (0.00-0.031); Immature Granulocyte Percent A 0.9 % (0-0.5); Lymphocytes Absolute Auto 0.66 K/mm3 (0.9-3.2); Lymphocytes Percent Auto 11.4 % (18.3-44.2); Mean Corpuscular HGB Conc 29.6 g/dl (32-36); Mean Corpuscular Hemoglobin 28.4 pg (26-34); Mean Corpuscular Volume 96.1 fl (80-100); Mean Platelet Volume 12.1 fl (7.4-10.4); Monocytes Absolute Auto 0.8 K/mm3 (0.1-0.6); Monocytes Percent Auto 12.9 % (2.6-8.5); Neutrophils Absolute Auto 4.1 K/mm3 (1.3-6.7); Neutrophils Percent Auto 70.3 % (45.5-73.1); Platelet Count Result 179 k/mm3 (150-375); Red Blood Count 3.06 M/mm3 (4.2-5.4); Red Cell Distribution Width 17.5 % (11.5-14.5); White Blood Count 5.8 K/mm3 (4.5-10.0)
[2020-06-15 05:38] LABS: Albumin Level 3.2 g/dL (3.5-5.1); Anion Gap 5 mmol/L (8-16); Blood Urea Nitrogen 50 mg/dL (7-17); Calcium 8.3 mg/dL (8.4-10.2); Carbon Dioxide 35 mmol/L (22-30); Chloride 99 mmol/L (98-107); Estimated CRCL calculation 31 ml/min; Estimated Glomerular Filt Rate 31; Glucose 102 mg/dL (65-105); Phosphorus 3.8 mg/dL (2.5-4.5); Potassium 4.1 mmol/L (3.4-5.0); Sodium 139 mmol/L (137-145)
[2020-06-15 06:18] LABS: Hypochromasia 1+ (NORMAL); Large Platelets Present; Ovalocytes 1+ (NORMAL); Platelet Estimate Adequate (Adequate)
--- NOTE | 2020-06-15 08:11 | PCOTNOTE ---
Attempted to see patient at 8:10 this morning for OT re-evaluation, but pt. presented with Blood Sugar at 45. Nurse suggested to wait until after she eats to see if the blood sugar increases.
[2020-06-15] MEDS: GLUCOSE ORAL GEL 15 GM OF GLUCSE IN 37.5 GM TUBE PO (08:13)
[2020-06-15] MEDS: HEPARIN SODIUM 5,000 UNITS/ML VIAL 5000 UNITS SUB-Q ×2 (08:14→20:51)
[2020-06-15] MEDS: DOXYCYCLINE HYCLATE 100 MG TABLET PO ×2 (08:15→20:51)
[2020-06-15] MEDS: amLODIPine BESYLATE 5 MG TABLET PO (08:16)
[2020-06-15] MEDS: ATORVASTATIN 40 MG TABLET 80 MG PO (08:16)
[2020-06-15] MEDS: FENOFIBRATE NANOCRYSTALLIZED 145 MG TABLET PO (08:16)
[2020-06-15] MEDS: ASPIRIN 81 MG ENTERIC TABLET PO (08:17)
[2020-06-15] MEDS: PANTOPRAZOLE 40 MG TABLET PO (08:17)
[2020-06-15] MEDS: calcitrioL 0.25 MCG CAPSULE PO (08:17)
[2020-06-15] MEDS: ISOSORBIDE MONONITRATE 30 MG TAB.ER.24H PO (08:17)
--- NOTE | 2020-06-15 08:25 | PM.IMPN ---
Progress Note: A&P Assessment and Plan (1) Sinus bradycardia: Code(s): R00.1 - Bradycardia, unspecified Status: Acute Assessment and Plan: Patinet having more episodes of bradycardia. Apnea link as detailed below so less likely related to RONAL. Concern that may be related to Brilinta and this has already [place] stopped. HR does improve with activity. Continue tele. Holding all AV blocking agents. (2) Chest pain: Qualifiers: Chest pain type: unspecified Qualified Code(s): R07.9 - Chest pain, unspecified Code(s): R07.9 - Chest pain, unspecified Status: Acute Assessment and Plan: Patient continued to have CP some felt to be atypical but Trop higher but no ischemic changes on EKG. Echo (06/07) showing EF 55-60% with Grade 2 diastolic dysfunction, moderate and moderate pulmonary HTN but no wall motion abnormalities. CP symptoms appear to improve with NTG. Lipase normal and RUQ unrevealing. LHC showing mid LAD lesion with improvement in her symptoms. Suspect patietn having angina type CP. (3) CAD (coronary artery disease): Code(s): I25.10 - Atherosclerotic heart disease of [place] coronary artery without angina pectoris Status: Acute Assessment and Plan: LHC on 06/13 showing mid LAD discrete lesion 75-90% treated with balloon angioplasty followed by stent placement with good results. Continue ASA, Plavix, Lipitor, and Imdur. No beta rafa due to her bradycardia. Continue to monitor on tele. (4) COPD (chronic obstructive pulmonary disease): Qualifiers: COPD type: unspecified COPD Qualified Code(s): J44.9 - Chronic obstructive pulmonary disease, unspecified Code(s): J44.9 - Chronic obstructive pulmonary disease, unspecified Status: Chronic Assessment and Plan: Acute on chronic respiratory failure with hypercapnia and hypoxia. ABG 06/07 showing 7.29/106/41. CTA of the chest unremarkable. She was on IV Lasix that stopped 06/09. Echocardiogram as above. Responded well to BiPAP with pCO2 now at 58 on 06/10 ABG. Remains on nasal cannula. Transferred out of IMU to medicine 06/09. Repeat xray 06/12 showing airspace opacities at the lung bases with slight worsening on the right, consistent with atelectasis or less likely pneumonia. Currently on ceftriaxone and doxycycline (Day 7) with her degree of COPD and low grade temp. BCx NGTD. Apnea link showing AHI 6 and RI 9 on 1L O2 lasting 6+Hrs of sleep. Continue supplemental O2. Wean as tolerated. Stop abx after today. (5) Chronic renal failure, stage 3 (moderate): Qualifiers: Chronic kidney disease stage 3 subtype: unspecified whether 3a or 3b Qualified Code(s): N18.30 - Chronic kidney disease, stage 3 unspecified Code(s): N18.30 - Chronic kidney disease, stage 3 unspecified Status: Acute Assessment and Plan: Creatinine runs 1.2-1.9 mostly. Cr at 1.6 today and probably at baseline. Lasix IV was stopped 06/09. IV fluids started prior to [facility] but these too have been stopped. Demadex home med resumed but held by Cards this morning. Continue to follow. Monitor Cr closely post-heart cath. (6) CHF (congestive heart failure): Code(s): I50.9 - Heart failure, unspecified Status: Acute Assessment and Plan: As above. Probably mild acute on chronic diastolic HF treated with IV Lasix earlier but now off. Home Demadex resumed 06/14 but now on hold. Continue to follow. Watch fluid status and renal function. (7) Chronic anemia: Code(s): D64.9 - Anemia, unspecified Status: Chronic Assessment and Plan: Iron studies compatible with iron deficiency anemia so replenished with IV iron(900 mg total). Stool guaiac is negative for blood. B12 level normal. Hgb dropped to 7.3 on 06/14 so she received 1U PRBC given that she just had a cardiac procedure. Repeat hgb 8.7 this morning. Start oral iron once off Doxy. Co
--- NOTE | 2020-06-15 08:41 | PM.PNCARD ---
Progress Note: A&P Assessment and Plan (1) Sinus bradycardia: Code(s): R00.1 - Bradycardia, unspecified Status: Acute Assessment and Plan: Likely due to Brilinta (rare side effect) HR better off Brilinta. Up to 50s from 30s yesterday Asymptomatic. BP stable. Possible discharge tomorrow if HR better and if Creatinine and Hemoglobin stable. (2) Elevated troponin: Code(s): R77.8 - Other specified abnormalities of plasma proteins Status: Acute Assessment and Plan: In the setting of resp failure on presentation. Likely type II PA from increased demand Given risk factors and history of CAD she underwent LHC that revealed severe disease in LAD. s/p PCI with ADITI Continue ASA. Switch Brilinta to Plavix. She had anemia (likely in the setting of CKD) and received transfusion yesterday.. She was previously on full dose ASA. Would discharge on 81 mg as now started on plavix. Continue Atorvastatin 80 mg daily (3) Hypertension: Qualifiers: Hypertension type: unspecified Qualified Code(s): I10 - Essential (primary) hypertension Code(s): I10 - Essential (primary) hypertension Status: Chronic Assessment and Plan: Hold torsemide for today (Cr 1.6 fro m1.4 yesterday, still not far from baseline). Will monitor (4) COPD (chronic obstructive pulmonary disease): Qualifiers: COPD type: unspecified COPD Qualified Code(s): J44.9 - Chronic obstructive pulmonary disease, unspecified Code(s): J44.9 - Chronic obstructive pulmonary disease, unspecified Status: Chronic Assessment and Plan: improving on current management (5) Hyperlipidemia: Qualifiers: Hyperlipidemia type: unspecified Qualified Code(s): E78.5 - Hyperlipidemia, unspecified Code(s): E78.5 - Hyperlipidemia, unspecified Status: Chronic Subjective Date/time seen: 06/15/20 08:41 HR better overall. Up to low 50s (compared to high 20s yesterday). She feels better overall. She is not interested in using the BiPAP. She denies dyspnea or chest pain Review of Systems Review of Systems: All systems reviewed & are unremarkable except as noted in HPI and below ROS unobtainable: Yes unobtainable due to mental status Constitutional: Constitutional: Reports as per HPI Eyes: Eyes: Reports as per HPI ENT: Reports system reviewed and no additional complaints, except as documented and Reports as per HPI Cardiovascular: Cardiovascular: Reports as per HPI Respiratory: Respiratory: Reports as per HPI Gastrointestinal: Gastrointestinal: Reports as per HPI Genitourinary: Genitourinary: Reports as per HPI Musculoskeletal: Musculoskeletal: Reports as per HPI and Reports back pain Exam Narrative: Exam Narrative: In no acute distress Const: General: no acute distress Nutritional Appearance: well nourished Orientation/consciousness: patient oriented x3 HENMT: Head: normal to inspection and atraumatic Ears: hearing grossly normal bilaterally Face and sinus: normal facial exam Eyes: General: appearance normal, both eyes and all related structures Sclera: sclerae normal Pupils: Equal, round and reactive pupils present EOM: EOMs intact bilaterally Neck: Neck: supple and no JVD Carotids: no bruits Chest: Chest palpation & inspection: normal inspection of the chest Resp: Effort & Inspection: normal respiratory effort and no respiratory distress Auscultation: clear to auscultation bilaterally and diminished lung sounds Cardio: Jugular venous distension: no JVD Rate: regular rate and not tachycardic Rhythm: regular rhythm Heart sounds: S1 normal heart sound present, S2 normal heart sound present, no gallops, no murmurs and no rubs Peripheral pulses: Peripheral pulses 2+ throughout GI: Auscultation: normal bowel sounds Skin: General skin exam: normal color Neuro: General: patient oriented x3 Cranial nerves: Yes Equal, round and reactive pupils pr
[2020-06-15 09:07] LABS: Glucose Point of Care 46 (65-105)
[2020-06-15 09:32] LABS: Glucose Point of Care 148 (65-105)
[2020-06-15 11:42] LABS: Glucose Point of Care 104 (65-105)
[2020-06-15] MEDS: PREGABALIN (*CRX) 50 MG CAPSULE 200 MG PO (12:42)
[2020-06-15] MEDS: EUCERIN CREAM 120 GM JAR 1 APPLIC TOPICAL (12:42)
[2020-06-15] MEDS: ONDANSETRON INJ 4 MG/2 ML VIAL IV PUSH ×2 (14:27→22:32)
[2020-06-15] MEDS: CLOPIDOGREL BISULFATE 75 MG TABLET PO (14:34)
--- NOTE | 2020-06-15 14:43 | ECG_ITS ---
Measurements Intervals [place] Rate: 59 P: -50 ND: 114 QRS: -17 QRSD: 150 T: 20 QT: 439 QTc: 437 Interpretive Statements ECTOPIC ATRIAL BRADYCARDIA WITH SHORT [place] INTERVAL LEFT BUNDLE BRANCH BLOCK BASELINE ARTIFACT- II, III, AVR, AVL, AVF, V4-V6 ABNORMAL ECG Electronically Signed On 06-15-2020 18:14:47 CDT by Rick Zapata D.O.
[2020-06-15 16:27] LABS: Glucose Point of Care 152 (65-105)
[2020-06-15] MEDS: ALBUTEROL SULFATE (*SP) AEROSOL 1 PUFF 2 PUFF INHALATION (20:20)
[2020-06-15 20:47] LABS: Glucose Point of Care 107 (65-105)
[2020-06-15] MEDS: TIZANIDINE HCL 4 MG TABLET PO (20:51)
[2020-06-16] VITALS (13 sets, daily range): BP systolic 126–146; BP diastolic 45–96; PULSE 42–62; RESP 18–22; TEMP 36–36.6; O2SAT 98–100
[2020-06-16] MEDS: traMADol HCL (*CRX) 50 MG TABLET PO ×2 (02:03→14:56)
[2020-06-16] MEDS: ALBUTEROL SULFATE NEB 2.5 MG/0.5 ML INH 5 MG INHALATION ×3 (02:18→13:24)
[2020-06-16 08:28] LABS: Glucose Point of Care 57 (65-105)
[2020-06-16] MEDS: FERROUS SULFATE 324 MG TABLET PO (09:27)
[2020-06-16] MEDS: ATORVASTATIN 40 MG TABLET 80 MG PO (09:28)
[2020-06-16] MEDS: ISOSORBIDE MONONITRATE 30 MG TAB.ER.24H PO (09:28)
[2020-06-16] MEDS: calcitrioL 0.25 MCG CAPSULE PO (09:29)
[2020-06-16] MEDS: ASPIRIN 81 MG ENTERIC TABLET PO (09:29)
[2020-06-16] MEDS: CLOPIDOGREL BISULFATE 75 MG TABLET PO (09:29)
[2020-06-16] MEDS: FENOFIBRATE NANOCRYSTALLIZED 145 MG TABLET PO (09:29)
[2020-06-16] MEDS: amLODIPine BESYLATE 5 MG TABLET PO (09:30)
[2020-06-16] MEDS: PANTOPRAZOLE 40 MG TABLET PO (09:30)
[2020-06-16] MEDS: EUCERIN CREAM 120 GM JAR 1 APPLIC TOPICAL (09:30)
[2020-06-16] MEDS: TORSEMIDE 20 MG TABLET PO (09:31)
[2020-06-16] MEDS: PREGABALIN (*CRX) 50 MG CAPSULE 200 MG PO (09:35)
[2020-06-16 09:40] LABS: Glucose Point of Care 108 (65-105)
--- NOTE | 2020-06-16 11:23 | PM.PNCARD ---
Progress Note: A&P Assessment and Plan (1) Acute respiratory failure: Code(s): J96.00 - Acute respiratory failure, unspecified whether with hypoxia or hypercapnia Status: Acute Assessment and Plan: Resolved. Required bIpap on admission. back to baseline oxygen requirements Better compensated from CHF standpoint. Now on home dose of Torsemide. Followed by pulmonary for h/o COPD (2) Elevated troponin: Code(s): R77.8 - Other specified abnormalities of plasma proteins Status: Acute Assessment and Plan: In the setting of resp failure on presentation. Likely type II [place] from increased demand Given risk factors and history of CAD she underwent LHC that revealed severe disease in LAD. s/p PCI with ADITI Continue ASA. Switch Brilinta to Plavix. She was previously on full dose ASA. Would discharge on 81 mg as now started on plavix. Continue Atorvastatin 80 mg daily Now labs today. Ordered BMP and CBC. Possible discharge today if Creatinine and Hemoglobin stable. (3) Sinus bradycardia: Code(s): R00.1 - Bradycardia, unspecified Status: Acute Assessment and Plan: Likely due to Brilinta (rare side effect) HR better off Brilinta. Up to 60s from 30s while on Brilinta (4) Hypertension: Qualifiers: Hypertension type: unspecified Qualified Code(s): I10 - Essential (primary) hypertension Code(s): I10 - Essential (primary) hypertension Status: Chronic (5) Hyperlipidemia: Qualifiers: Hyperlipidemia type: unspecified Qualified Code(s): E78.5 - Hyperlipidemia, unspecified Code(s): E78.5 - Hyperlipidemia, unspecified Status: Chronic Subjective Date/time seen: 06/16/20 11:23 No overnight events. She just had a brief walk with physical therapy. She has concerns still about going home. She denies chest pain or dyspnea. Review of Systems Constitutional: Constitutional: Reports as per HPI Eyes: Eyes: Reports as per HPI ENT: Reports system reviewed and no additional complaints, except as documented and Reports as per HPI Cardiovascular: Cardiovascular: Reports as per HPI Respiratory: Respiratory: Reports as per HPI Gastrointestinal: Gastrointestinal: Reports as per HPI Genitourinary: Genitourinary: Reports as per HPI Musculoskeletal: Musculoskeletal: Reports as per HPI and Reports back pain Exam Narrative: Exam Narrative: In no acute distress Const: General: no acute distress Nutritional Appearance: well nourished Orientation/consciousness: patient oriented x3 HENMT: Head: normal to inspection and atraumatic Ears: hearing grossly normal bilaterally Face and sinus: normal facial exam Eyes: General: appearance normal, both eyes and all related structures Sclera: sclerae normal Pupils: Equal, round and reactive pupils present EOM: EOMs intact bilaterally Neck: Neck: supple and no JVD Carotids: no bruits Chest: Chest palpation & inspection: normal inspection of the chest Resp: Effort & Inspection: normal respiratory effort and no respiratory distress Auscultation: clear to auscultation bilaterally and diminished lung sounds Cardio: Jugular venous distension: no JVD Rate: regular rate and not tachycardic Rhythm: regular rhythm Heart sounds: S1 normal heart sound present, S2 normal heart sound present, no gallops, no murmurs and no rubs Peripheral pulses: Peripheral pulses 2+ throughout GI: Auscultation: normal bowel sounds Skin: General skin exam: normal color Neuro: General: patient oriented x3 Cranial nerves: Yes Equal, round and reactive pupils present and Yes hard of hearing Extrem: General: normal to inspection, no clubbing, cyanosis or edema and edema Psych: Affect: normal affect Objective Data Vital Signs Vital Signs: Vital Signs - 24 hr 06/15/20 12:00 06/15/20 14:00 06/15/20 14:28 Temperature 36.4 C Pulse Rate 55 L 59 L 67 Respiratory Rate 22 H 20 Blood Pressure 140/
[2020-06-16] MEDS: HEPARIN SODIUM 5,000 UNITS/ML VIAL 5000 UNITS SUB-Q (11:25)
[2020-06-16 11:52] LABS: Basophils Percent Auto 0.4 % (0.2-1.2); Eosinophils Absolute Auto 0.2 K/mm3 (0-0.3); Eosinophils Percent Auto 4.2 % (0-4.4); Hematocrit 29.3 % (37.0-47.0); Hemoglobin 8.6 g/dL (12.0-15.0); Immature Granulocyte Absolute 0.03 K/mm3 (0.00-0.031); Immature Granulocyte Percent A 0.6 % (0-0.5); Lymphocytes Absolute Auto 0.39 K/mm3 (0.9-3.2); Lymphocytes Percent Auto 7.4 % (18.3-44.2); Mean Corpuscular HGB Conc 29.4 g/dl (32-36); Mean Corpuscular Hemoglobin 28.1 pg (26-34); Mean Corpuscular Volume 95.8 fl (80-100); Mean Platelet Volume 11.9 fl (7.4-10.4); Monocytes Absolute Auto 0.6 K/mm3 (0.1-0.6); Monocytes Percent Auto 10.4 % (2.6-8.5); Neutrophils Absolute Auto 4.1 K/mm3 (1.3-6.7); Platelet Count Result 198 k/mm3 (150-375); Red Blood Count 3.06 M/mm3 (4.2-5.4); Red Cell Distribution Width 17.4 % (11.5-14.5); White Blood Count 5.3 K/mm3 (4.5-10.0)
[2020-06-16 12:08] LABS: Anion Gap 3 mmol/L (8-16); Blood Urea Nitrogen 51 mg/dL (7-17); Calcium 8.4 mg/dL (8.4-10.2); Carbon Dioxide 38 mmol/L (22-30); Chloride 97 mmol/L (98-107); Estimated CRCL calculation 41 ml/min; Estimated Glomerular Filt Rate 43; Glucose 100 mg/dL (65-105); Sodium 138 mmol/L (137-145)
[2020-06-16 12:16] LABS: Hypochromasia 1+ (NORMAL); Ovalocytes 1+ (NORMAL); Platelet Estimate Adequate (Adequate)
--- NOTE | 2020-06-16 13:28 | PM.DS ---
DS: Admitting Diagnosis Admitting Diagnosis Admitting Diagnosis: Chest pain, elevated troponin, heart failure DS: Discharge Diagnosis Discharge Diagnosis (1) Sinus bradycardia: Code(s): R00.1 - Bradycardia, unspecified Status: Acute Assessment and Plan: Patinet having episodes of bradycardia. Apnea link as detailed below so less likely related to RONAL. Concern that may be related to Brilinta and this has already been stopped. HR does improve with activity. HR improved off the Brilinta. (2) Chest pain: Qualifiers: Chest pain type: unspecified Qualified Code(s): R07.9 - Chest pain, unspecified Code(s): R07.9 - Chest pain, unspecified Status: Acute Assessment and Plan: Patient continued to have CP some felt to be atypical but Trop higher but no ischemic changes on EKG. Cardiology felt the elevated Troponin was Type II RI from increased demand. Echo (06/07) showing EF 55-60% with Grade 2 diastolic dysfunction, moderate and moderate pulmonary HTN but no wall motion abnormalities. CP symptoms appear to improve with NTG. Lipase normal and RUQ unrevealing. LHC showing mid LAD lesion with improvement in her symptoms. (3) CAD (coronary artery disease): Code(s): I25.10 - Atherosclerotic heart disease of [place] coronary artery without angina pectoris Status: Acute Assessment and Plan: LHC on 06/13 showing mid LAD discrete lesion 75-90% treated with balloon angioplasty followed by stent placement with good results. Continue ASA, Plavix, Lipitor, and Imdur. No beta rafa due to her bradycardia. (4) Acute and chronic respiratory failure with hypercapnia: Code(s): J96.22 - Acute and chronic respiratory failure with hypercapnia Status: Acute Assessment and Plan: Acute on chronic respiratory failure with hypercapnia and hypoxia. ABG 06/07 showing 7.29/106/41. CTA of the chest unremarkable. She was on IV Lasix that stopped 06/09. Echocardiogram as above. Responded well to BiPAP with pCO2 now at 58 on 06/10 ABG. Remains on nasal cannula. Transferred out of IMU to medicine 06/09. Repeat xray 06/12 showing airspace opacities at the lung bases with slight worsening on the right, consistent with atelectasis or less likely pneumonia. Treated with ceftriaxone and doxycycline for 7 Days with her degree of COPD and low grade temp. BCx NGTD. Apnea link showing AHI 6 and RI 9 on 1L O2 lasting 6+Hrs of sleep. We continued supplemental O2. She wsa refusing BiPAP once she was out of the ICU. (5) COPD (chronic obstructive pulmonary disease): Qualifiers: COPD type: unspecified COPD Qualified Code(s): J44.9 - Chronic obstructive pulmonary disease, unspecified Code(s): J44.9 - Chronic obstructive pulmonary disease, unspecified Status: Chronic Assessment and Plan: As above. (6) Chronic renal failure, stage 3 (moderate): Qualifiers: Chronic kidney disease stage 3 subtype: unspecified whether 3a or 3b Qualified Code(s): N18.30 - Chronic kidney disease, stage 3 unspecified Code(s): N18.30 - Chronic kidney disease, stage 3 unspecified Status: Acute Assessment and Plan: Creatinine runs 1.2-1.9 mostly. Lasix IV was stopped 06/09. IV fluids started prior to [facility]. Demadex home med resumed a few days after the C. Creatinine today 1.2. (7) CHF (congestive heart failure): Qualifiers: Heart failure type: diastolic Heart failure chronicity: acute on chronic Qualified Code(s): I50.33 - Acute on chronic diastolic (congestive) heart failure Code(s): I50.9 - Heart failure, unspecified Status: Acute Assessment and Plan: As above. Probably mild acute on chronic diastolic HF treated with IV Lasix earlier but now off. Home Demadex resumed. Renal function status remained stable. (8) Chronic anemia: Code(s): D64.9 - Anemia, unspecified S
[2020-06-16 13:43] LABS: Glucose Point of Care 93 (65-105)
[2020-06-16] MEDS: ONDANSETRON HCL ODT 4 MG TABLET PO (15:41)
== END 2020-06-16 17:45 | disposition home health service (06) | DRG 246 ==
LOC: ANHED 06-07 00:38 → ANHIMU 06-07 02:55 → ANH2MED 06-10 20:08 → ANHIMU 06-14 11:59 → ANH2MED 06-17 17:12 → ANHICU 06-17 17:12 → ANHIMU 06-17 17:12
PROVIDERS: Internal Medicine; Specialist; Admitting Provider Family Medicine; Emergency Provider Emergency Medicine; PCP Internal Medicine; Visit Provider Internal Medicine
PROC: 4A023N7 Measurement of Cardiac Sampling and Pressure, Left Heart, Percutaneous Approach (ICD-10-PCS; CPT 93452; principal; 2020-06-13 08:30)
PROC: 027034Z Dilation of Coronary Artery, One Artery with Drug-eluting Intraluminal Device, Percutaneous Approach (ICD-10-PCS; 2020-06-13 08:30)
PROC: 027034Z Dilation of Coronary Artery, One Artery with Drug-eluting Intraluminal Device, Percutaneous Approach (ICD-10-PCS; 2020-06-13 08:30)
DX: I25.10 Atherosclerotic heart disease of native coronary artery without angina pectoris (principal); I50.33 Acute on chronic diastolic (congestive) heart failure; I21.A1 Myocardial infarction type 2; J96.22 Acute and chronic respiratory failure with hypercapnia; J96.21 Acute and chronic respiratory failure with hypoxia; T82.855A Stenosis of coronary artery stent, initial encounter; I13.0 Hypertensive heart and chronic kidney disease with heart failure and stage 1 through stage 4 chronic kidney disease, or unspecified chronic kidney disease; J44.1 Chronic obstructive pulmonary disease with (acute) exacerbation; Z68.41 Body mass index [BMI] 40.0-44.9, adult; E87.0 Hyperosmolality and hypernatremia; E66.2 Morbid (severe) obesity with alveolar hypoventilation; Z23 Encounter for immunization; E78.5 Hyperlipidemia, unspecified; N18.30 Chronic kidney disease, stage 3 unspecified; E11.22 Type 2 diabetes mellitus with diabetic chronic kidney disease; M79.672 Pain in left foot; D50.9 Iron deficiency anemia, unspecified; M19.90 Unspecified osteoarthritis, unspecified site; M79.7 Fibromyalgia; I27.20 Pulmonary hypertension, unspecified; R00.1 Bradycardia, unspecified; T45.525A Adverse effect of antithrombotic drugs, initial encounter; I44.7 Left bundle-branch block, unspecified; W18.30XA Fall on same level, unspecified, initial encounter; F17.210 Nicotine dependence, cigarettes, uncomplicated; E66.01 Morbid (severe) obesity due to excess calories; Z99.81 Dependence on supplemental oxygen; I25.2 Old myocardial infarction; Z95.5 Presence of coronary angioplasty implant and graft; Z90.49 Acquired absence of other specified parts of digestive tract
CPT/HCPCS: 36415; 36430; 36600; 70450; 71045; 71275; 73030; 73502; 73564; 73610; 73620; 76705; 80048; 80053; 80061; 80069; 81001; 82274; 82375; 82550; 82607; 82728; 82805; 82948; 83050; 83540; 83550; 83690; 83735; 83880; 84100; 84443; 84484; 85014; 85018; 85025; 85027; 85380; 85610; 85730; 86850; 86900; 86901; 86923; 87040; 87086; 87088; 90471; 90653; 93005; 93306; 93458; 93971; 94002; 94003; 94640; 94762; 96361; 96374; 96375; 96376; 97110; 97116; 97161; 97165; 97168; 97530; 97535; 99285; A9270; C1725; C1760; C1769; C1874; C1887; C1894; C9600; G0008; G0269; G0378; J0583; J0696; J1644; J1756; J1815; J1940; J2250; J2270; J2405; J3010; J7030; J7040; J7050; P9016; Q9967

== ENCOUNTER 2020-06-18 14:11 | Inpatient (IN) | payer MEDICARE, SELFPAY ==
[2020-06-18] VITALS (19 sets, daily range): BP systolic 113–187; BP diastolic 43–71; PULSE 35–90; RESP 16–24; TEMP 35.8–36.2; O2SAT 68–100; BMI 44.6
--- NOTE | ~2020-06-18 | XR_ITS ---
EXAMINATION: XR chest 1V portable DATE: 06/20/2020 07:45 INDICATION: Chest pressure. Shortness of breath. TECHNIQUE: frontal and lateral views of the chest were obtained. COMPARISON: Chest radiograph dated 06/18/[address] dated 06/06/2020 FINDINGS: Decrease in size of a tiny left pleural effusion with blunting at the left costophrenic angle and min imal left basilar atelectasis. No other airspace opacities, pulmonary edema, pneumothorax or right pl eural effusion. Cardiomegaly with coronary artery stenting. Large hiatal hernia. IMPRESSION: 1. Decreasing small left pleural effusion with minimal left basilar atelectasis. 2. Cardiomegaly. 3. Large hiatal hernia. Reviewed, dictated and finalized at location A. IMPRESSION: 1. Decreasing small left pleural effusion with minimal left basilar atelectasis . 2. Cardiomegaly. 3. Large hiatal hernia.
--- NOTE | ~2020-06-18 | XR_ITS ---
XR chest 1V portable 06/18/2020 15:06 Indication: Shortness of breath and weakness Procedure: AP portable chest Comparison: Comparison to multiple prior studies sequentially, with oldest reviewed study dated 05/30. Findings: Cardiomegaly with mild interstitial edema. Small left pleural effusion. Large hiatal hernia . No pneumothorax. No acute osseous abnormality. Impression: 1: Cardiomegaly with mild interstitial edema. 2: Small left pleural effusion. 3: Large hiatal hernia. Reviewed, dictated and finalized at location B. Impression: 1: Cardiomegaly with mild interstitial edema. 2: Small left pleural effusion. 3: Large hiatal hernia.
--- NOTE | 2020-06-18 14:15 | ECG_ITS ---
Measurements Intervals Lipan Rate: 40 P: -46 SC: 133 QRS: -30 QRSD: 161 T: -11 QT: 541 QTc: 442 Interpretive Statements SINUS BRADYCARDIA LEFT BUNDLE BRANCH BLOCK BASELINE WANDER- I, II, III, AVR, AVL, AVF, V5-V6 ABNORMAL ECG Electronically Signed On 06-18-2020 15:04:00 CDT by Rick Zapata D.O.
--- NOTE | 2020-06-18 14:17 | PC.NURSE ---
C.O.D. AUDIT CLERK AND AUTOMOTIVE PARTS CLERK AT BEDSIDE AT THIS TIME, AFTER EVALUATION OF EKG, STATES THAT PT IS NOT A STEMI.
--- NOTE | 2020-06-18 14:18 | ED.SOB ---
HPI - SOB/Dyspnea General Chief Complaint: Shortness of Breath/Dyspnea Stated Complaint: SOB, STEMI History of Present Illness HPI Narrative: 80 yo female w/ h/o htn, DM, CHF brought in by EMS from home for SOB. She was seen by home health today and noted to be very bradycardic, so lamar called EMS. EMS did an EKG showing LBBB, which they called a STEMI in the field. She denies any pain. EKG reviewed and does not show a STEMI. She does report that she has SOB. This has been going on for awhile, maybe worse today. She was discharged from the hospital the day before yesterday. During that stay she had mild troponin elevation. She had a cath showing some stenosis and she was treated with balloon angioplasty and stenting in the mid LAD. Related Data Home Medications Medication Instructions Recorded Confirmed amlodipine 5 mg PO DAILY 06/07/20 06/18/20 atorvastatin 80 mg PO DAILY 06/07/20 06/18/20 biotin 1 mg PO DAILY 06/07/20 06/18/20 calcitriol 0.25 mcg PO DAILY 06/07/20 06/18/20 hszp-xeq-dzdbdykc-oleic-dha 1 tablet PO DAILY 06/07/20 06/18/20 cranberry extract 250 mg PO DAILY 06/07/20 06/18/20 fenofibrate nanocrystallized 145 mg PO DAILY 06/07/20 06/18/20 isosorbide mononitrate 30 mg PO DAILY 06/07/20 06/18/20 pantoprazole 40 mg PO DAILY 06/07/20 06/18/20 pregabalin 200 mg PO DAILY 06/07/20 06/18/20 torsemide 20 mg PO DAILY 06/07/20 06/18/20 tizanidine 4 mg PO BID PRN 06/19/20 06/19/20 Allergies Allergy/AdvReac Type Severity Reaction Status Date / Time amitriptyline Allergy Unknown Unknown Verified 06/19/20 21:24 chlordiazepoxide Allergy Unknown Unknown Verified 06/19/20 21:24 Review of Systems Review of Systems: All systems reviewed & are unremarkable except as noted in HPI and below Constitutional: Constitutional: Denies chills and Denies fever(s) Cardiovascular: Cardiovascular: Denies chest pain Respiratory: Respiratory: Reports dyspnea Neurologic: Denies confusion and Reports weakness PMFSH Past Medical History Medical History Anxiety Chronic pain COPD (chronic obstructive pulmonary disease) Depression Diabetes Fibromyalgia Heart attack Hyperlipidemia Hypertension Left bundle branch block Muscle spasm Pneumonia Recurrent urinary tract infection Surgical History Surgical History History of coronary artery stent placement Family History Family History Mother Acute myocardial infarction Social History Social History Smoking status: Former smoker Tobacco type: cigarettes Alcohol intake: never Substance use: never Gender identity (if verbalized by the patient): Female Spiritual care concerns: No Exam Const: General: no acute distress and alert Nutritional Appearance: obese Orientation/consciousness: patient oriented x3 HENMT: Head: normal to inspection Neck: Neck: normal visual inspection Resp: Effort & Inspection: normal respiratory effort Auscultation: clear to auscultation bilaterally, no rales, no rhonchi and no wheezes Cardio: Jugular venous distension: no JVD Rate: bradycardic Rhythm: regular rhythm Heart sounds: no murmurs GI: Inspection: non-distended GI Palp: Yes Soft to palpation and No Tenderness to palpation present (GI) Skin: General skin exam: normal color Neuro: General: patient oriented x3, moves all extremities, no focal motor deficits and CN's II-XI intact bilaterally Speech: normal speech Extrem: General: edema bilateral Psych: Appearance: well kempt Affect: normal affect Course Course Emergency Course: Case discussed with Dr. Rodarte. He recommends observation, folllowing troponins, continuing aspirin and plavix. He will consult. Vital Signs Vital signs: Vital Signs Temperature 35.8 C L 06/18/20 14:07 Pulse Rate 44 L
[2020-06-18 14:31] LABS: Basophils Percent Auto 0.5 % (0.2-1.2); Eosinophils Absolute Auto 0.1 K/mm3 (0-0.3); Eosinophils Percent Auto 2.3 % (0-4.4); Hematocrit 30.8 % (37.0-47.0); Immature Granulocyte Absolute 0.02 K/mm3 (0.00-0.031); Immature Granulocyte Percent A 0.5 % (0-0.5); Lymphocytes Absolute Auto 0.49 K/mm3 (0.9-3.2); Lymphocytes Percent Auto 12.4 % (18.3-44.2); Mean Corpuscular HGB Conc 29.2 g/dl (32-36); Mean Corpuscular Hemoglobin 28.8 pg (26-34); Mean Corpuscular Volume 98.7 fl (80-100); Mean Platelet Volume 12.1 fl (7.4-10.4); Monocytes Absolute Auto 0.5 K/mm3 (0.1-0.6); Monocytes Percent Auto 12.9 % (2.6-8.5); Neutrophils Absolute Auto 2.8 K/mm3 (1.3-6.7); Neutrophils Percent Auto 71.4 % (45.5-73.1); Platelet Count Result 181 k/mm3 (150-375); Red Blood Count 3.12 M/mm3 (4.2-5.4); Red Cell Distribution Width 17.6 % (11.5-14.5)
[2020-06-18 14:45] LABS: Alanine Aminotransferase 25 U/L (4-35); Albumin Level 3.3 g/dL (3.5-5.1); Alkaline Phosphatase 60 U/L (38-126); Anion Gap 4.99999 mmol/L (8-16); Aspartate Amino Transferase 35 U/L (14-36); Bilirubin,Total 0.4 mg/dL (0.2-1.3); Blood Urea Nitrogen 50 mg/dL (7-17); Calcium 9.1 mg/dL (8.4-10.2); Carbon Dioxide > 40 mmol/L (22-30); Chloride 93 mmol/L (98-107); Cholesterol 103 mg/dL (0-200); Estimated CRCL calculation 40 ml/min; Estimated Glomerular Filt Rate 40; Glucose 132 mg/dL (65-105); HDL Direct 46 mg/dL; Potassium 4.2 mmol/L (3.4-5.0); Sodium 138 mmol/L (137-145); Triglycerides 140 mg/dL (<150)
[2020-06-18 14:47] LABS: Prothrombin Time 12.5 Seconds (11.1-14.7)
[2020-06-18 14:48] LABS: Partial Thromboplastin Time 28.3 SECONDS (22.3-36.8)
[2020-06-18 14:55] LABS: LDL Cholesterol Direct 37 mg/dL; NT Pro B Type Natriuretic Pept 2170 PG/ML (5-100)
[2020-06-18 14:59] LABS: Troponin I 0.291 ng/mL (0.000-0.034)
--- NOTE | 2020-06-18 15:34 | PM.CNCAR ---
Assessment and Plan Assessment and plan (1) CAD (coronary artery disease): Code(s): I25.10 - Atherosclerotic heart disease of [place] coronary artery without angina pectoris Status: Acute Assessment and Plan: Patient is a 80 year woman with history of CAD s/p PCI/stent midLAD 06/13/2020, s/p NSTEMI, HF-pEF, HTN, hyperlipidemia, COPD, fibromyalgia, chronic pain, depression, anxiety, who is seen in cardiac consultation for dyspnea. -her chest pain is atypical, with local tenderness, and wthout recent change. -EKG with chronic LBBB. -Initial troponin I was 0.291, then 0.290, then pending. Initial flat elevation of trop I consistent with recent PCI in setting of CKD. -Continue ASA, Plavix, statin, and Imdur. No beta-rafa due to sinus bradycardia. -Obtain lipid panel. (2) Sinus bradycardia: Code(s): R00.1 - Bradycardia, unspecified Status: Acute Assessment and Plan: -She has marked sinus bradycardia 37-42 bpm, symptomatic with dizziness. -pending HR trend and symptoms, consider permanent pacemaker. -Obtain Mg, TSH. (3) CHF (congestive heart failure): Qualifiers: Heart failure chronicity: acute on chronic Heart failure type: diastolic Qualified Code(s): I50.33 - Acute on chronic diastolic (congestive) heart failure Code(s): I50.9 - Heart failure, unspecified Status: Acute Assessment and Plan: -She has acute on chronic HF-pEF in setting of marked sinus bradycardia. -Resume gentle diuresis with careful monitoring of Cr. -Recently, she had echo 06/07/2020: LVEF 55-60%, grade 2 diastolic dyfunction, moderate , moderate pulmonary HTN. (4) Acute and chronic respiratory failure with hypercapnia: Code(s): J96.22 - Acute and chronic respiratory failure with hypercapnia Status: Acute Assessment and Plan: -She needs pulmonary f/u. (5) Hypertension: Qualifiers: Hypertension type: unspecified Qualified Code(s): I10 - Essential (primary) hypertension Code(s): I10 - Essential (primary) hypertension Status: Chronic Assessment and Plan: -BP moderately elevated. -monitor BP with diuresis. History of Present Illness History of Present Illness Consult date/time: 06/18/20 15:34 Patient is a 80 year woman with history of CAD s/p PCI/stent midLAD 06/13/2020, s/p NSTEMI, HF-pEF, HTN, hyperlipidemia, COPD, fibromyalgia, chronic pain, depression, anxiety, who is seen in cardiac consultation for dyspnea. Recently, patient was admitted [facility] with acute on chronic respiratory failure. Given troponin elevation of 0.063 06/07/20, patient underwent LHC and had PCI/stent to midLAD 06/13/2020. Patient was readmitted for evaluation of sinus bradycardia, 40 bpm, noted by her home nurse. Telemetry revealed sinus bradycardia 37-42 bpm this current admission. Patient reports increased exertional dyspnea for 4 days. Patient reports central chest and left central chest sharp discomfort & heaviness with associated tenderness of the chest wall, intermittent and unchanged compared with prior to PCI LAD. Reports new postural dizziness, without syncope or palpitations. Reports increased bilateral leg edema for 4 days, without PND. Her primary seamless hosiery knitter is Dr. Randolph at [facility]. This admission, Cr 1.3, K 4.2. Initial troponin I was 0.291, then 0.290, then pending. BNP was elevated 2170. CXR: cardiomegaly with mild interstitial edema, small left pleural effusion. Had EKG: sinus bradycardia, 40 bpm, LBBB (old). Recently, she had echo 06/07/2020: LVEF 55-60%, grade 2 diastolic dyfunction, moderate , moderate pulmonary HTN. Reason For Visit: Bradycardia/elevated troponin/SOB Review of Systems Review of Systems: All systems reviewed & are unremarkable except as noted in HPI and below PMFSH Past Medical History Medical History Anxiety Chronic pain COPD (chronic obstructive pulmonary disease) Depression
--- NOTE | 2020-06-18 16:05 | PC.NURSE ---
RAW SCALES OPERATOR AT BEDSIDE.
--- NOTE | 2020-06-18 16:05 | PC.NURSE ---
ATTEMPTED TO CONTACT RN FOR REPORT AT THIS TIME, PER UNIT SEC, RN OFF THE FLOOR WITH ANOTHER PT AND WILL CALL BACK.
--- NOTE | 2020-06-18 16:39 | ADMGEN ---
This patient, Chandni Vicente, was admitted to IMU Room 207-01. Patient/family oriented to hospital policies and general routines including ID bracelet, bed and alarms, visiting hours, pain management, procedures, bathroom and other care routines, personal items, smoking policy, room service/diet, and visiting hours. Information on how to activate the Rapid Response Team has been discussed. Patient/Family are encouraged to report perceived risks to care and to ask questions if they do not understand what they are told or what they should do.
[2020-06-18 17:17] LABS: Glucose Point of Care 119 (65-105)
--- NOTE | 2020-06-18 19:01 | PM.IMHP ---
H&P: HPI History of Present Illness Date/Time: 06/18/20 19:01 Chief complaint: Bradycardia/elevated troponin/SOB Narrative: Chandni Vicente is a 80 year old female With past medical history hypertension, Type 2 diabetes, COPD on 3 L, CHF presents the ED with complaints of dyspnea and weakness. home health evaluate her and called EMS because she was found to be bradycardic. EKG in the field showed LBBB. Of note patient history left bundle branch block EKG from 06/07/2020 shows sinus Matt with left bundle branch block and frequent PACs. Two days ago patient had a balloon angioplasty and stenting of mid LAD. she was started on aspirin and Brilinta for stent for dual anti-platelet therapy, was found to be bradycardic attributed to the Brilinta , then Brilinta was switched to Plavix. Patient was discharged home with home health with aspirin Plavix for dual anti-platelet therapy. Patient was advised to follow with pulmonology, she does not have a automotive parts counterperson. She states she was taking half her furosemide which I suspect is due to recent heart catheterization trying to limit diuretic. Last echo was in 06/07/2020 EF 55-60% with grade 2 diastolic dysfunction. In the ED: Patient is on the bradycardic with elevated troponin. troponin 0.29. Otherwise her labs are stable compared to discharge. Creatinine baseline 1.3 her baseline is 1.2-1.9. patient met for observation with complaints of weakness, left-sided chest pain, elevated troponin compared to on discharge. Review of Systems Review of Systems: Narrative: Constitutional: No Fever, No Chills, No Night Sweats. Endorses fatigue and generalized weakness ENT/Mouth: No Hearing Changes, No Ear Pain, No Nasal Congestion, No Sinus Pain, No Hoarseness, No sore throat, No Rhinorrhea, No Swallowing Difficulty Eyes: No Eye Pain, No Redness, No Vision Changes Cardiovascular: No Palpitations, No Orthopnea, No Claudication. Endorses chest pain /pressure, dyspnea, peripheral edema Respiratory: No Cough, No Sputum, No Wheezing. endorses shortness of breath. Gastrointestinal: No Nausea, No Vomiting, No Diarrhea, No Constipation, No Abdominal Pain, No Heartburn, No Hematochezia, No Melena Genitourinary: No Dysuria, No Urinary Frequency, No Hematuria, No Urinary Incontinence, No Urgency Musculoskeletal: No Arthralgias, No Myalgias, No Joint Swelling, No Joint Stiffness, No Back Pain Skin: No Skin Lesions, No Pruritis, No Hair Changes Neuro: No Weakness, No Numbness, No Paresthesias, No Loss of Consciousness, No Syncope, No Dizziness, No Headache Psych: No Anxiety/Panic, No Depression, No Insomnia Heme: No Bruising, No Bleeding Lymph: No Adenopathy Endocrine: No Polyuria, No Polydipsia, No Temperature Intolerance [facility] Past Medical History Medical History (Updated 06/18/20 @ 20:00 by Michael Valente DO) Anxiety Chronic pain COPD (chronic obstructive pulmonary disease) Depression Diabetes Fibromyalgia Heart attack Hyperlipidemia Hypertension Left bundle branch block Muscle spasm Pneumonia Recurrent urinary tract infection Surgical History Surgical History History of coronary artery stent placement Family History Family History Mother Acute myocardial infarction Social History Social History Smoking status: Former smoker Tobacco type: cigarettes Alcohol intake: never Substance use: never Gender identity (if verbalized by the patient): Female Spiritual care concerns: No Meds Home Medications and Allergies Home Medications Medication Instructions Recorded Confirmed Type amlodipine 5 mg PO DAILY 06/07/20 06/18/20 History atorvastatin 80 mg PO DAILY 06/07/20 06/18/20 History biotin 1 mg PO DAILY 06/07/20 06/18/20 History calcitriol 0.25 mcg PO DAILY 06/07/20 06/18/20 History hanh
[2020-06-18 19:56] LABS: Glucose Point of Care 156 (65-105)
[2020-06-18 20:33] LABS: Troponin I 0.281 ng/mL (0.000-0.034)
[2020-06-18 20:35] LABS: Magnesium 1.9 mg/dL (1.6-2.3)
[2020-06-18] MEDS: TIZANIDINE HCL 4 MG TABLET PO (20:44)
[2020-06-18] MEDS: ENOXAPARIN 40 MG/0.4 ML SYRINGE SUB-Q (20:45)
[2020-06-19] VITALS (15 sets, daily range): BP systolic 151–191; BP diastolic 48–63; PULSE 41–77; RESP 16–24; TEMP 35.9–36.8; O2SAT 95–100
[2020-06-19] MEDS: ACETAMINOPHEN 325 MG TABLET 650 MG PO ×4 (01:46→22:36)
[2020-06-19 05:29] LABS: Hematocrit 30.5 % (37.0-47.0); Hemoglobin 9.1 g/dL (12.0-15.0); Mean Corpuscular HGB Conc 29.8 g/dl (32-36); Mean Corpuscular Hemoglobin 28.7 pg (26-34); Mean Corpuscular Volume 96.2 fl (80-100); Mean Platelet Volume 12.8 fl (7.4-10.4); Platelet Count Result 175 k/mm3 (150-375); Red Blood Count 3.17 M/mm3 (4.2-5.4); Red Cell Distribution Width 17.3 % (11.5-14.5); White Blood Count 4.3 K/mm3 (4.5-10.0)
[2020-06-19 05:42] LABS: Anion Gap 6.99999 mmol/L (8-16); Blood Urea Nitrogen 46 mg/dL (7-17); Calcium 9.2 mg/dL (8.4-10.2); Carbon Dioxide > 40 mmol/L (22-30); Chloride 95 mmol/L (98-107); Cholesterol 112 mg/dL (0-200); Estimated CRCL calculation 40 ml/min; Estimated Glomerular Filt Rate 40; Glucose 105 mg/dL (65-105); HDL Direct 46 mg/dL; Potassium 3.8 mmol/L (3.4-5.0); Sodium 142 mmol/L (137-145); Triglycerides 205 mg/dL (<150)
[2020-06-19 05:51] LABS: LDL Cholesterol Direct 41 mg/dL
[2020-06-19 07:31] LABS: Glucose Point of Care 109 (65-105)
[2020-06-19] MEDS: amLODIPine BESYLATE 5 MG TABLET PO (08:47)
[2020-06-19] MEDS: FERROUS SULFATE 324 MG TABLET PO ×2 (08:48→17:39)
[2020-06-19] MEDS: ATORVASTATIN 40 MG TABLET 80 MG PO (08:48)
[2020-06-19] MEDS: ASPIRIN 81 MG ENTERIC TABLET PO (08:48)
[2020-06-19] MEDS: PANTOPRAZOLE 40 MG TABLET PO (08:48)
[2020-06-19] MEDS: FENOFIBRATE NANOCRYSTALLIZED 145 MG TABLET PO (08:48)
[2020-06-19] MEDS: CLOPIDOGREL BISULFATE 75 MG TABLET PO (08:48)
[2020-06-19] MEDS: ISOSORBIDE MONONITRATE 30 MG TAB.ER.24H PO (08:48)
[2020-06-19] MEDS: TORSEMIDE 20 MG TABLET PO (08:49)
[2020-06-19] MEDS: calcitrioL 0.25 MCG CAPSULE PO (08:49)
[2020-06-19] MEDS: INSULIN GLARGINE (*BKC) 100 UNITS/ML 10 UNITS SUB-Q (08:49)
[2020-06-19] MEDS: PREGABALIN (*CRX) 50 MG CAPSULE 200 MG PO (08:50)
[2020-06-19] MEDS: EUCERIN CREAM 120 GM JAR 1 APPLIC TOPICAL (08:51)
--- NOTE | 2020-06-19 11:07 | PM.PNCARD ---
Progress Note: A&P Assessment and Plan (1) CAD (coronary artery disease): Code(s): I25.10 - Atherosclerotic heart disease of [place] coronary artery without angina pectoris Status: Acute Assessment and Plan: Patient is a 80 year woman with history of CAD s/p PCI/stent midLAD 06/13/2020, s/p NSTEMI, HF-pEF, HTN, hyperlipidemia, COPD, fibromyalgia, chronic pain, depression, anxiety, who is seen in cardiac consultation for dyspnea. -her chest pain is atypical, with local tenderness, and wthout recent change. -EKG with chronic LBBB. -Initial troponin I was 0.291, then 0.290, then pending. Initial flat elevation of trop I consistent with recent PCI in setting of CKD. -Continue ASA, Plavix, statin, and Imdur. No beta-rafa due to sinus bradycardia. -Obtain lipid panel. (2) Sinus bradycardia: Code(s): R00.1 - Bradycardia, unspecified Status: Acute Assessment and Plan: -She has marked sinus bradycardia 37-42 bpm, symptomatic with dizziness. her heart rate improved with walking to as high as 72, at this time she does not need pacemaker as there is no clear indication for that. However have a feeling that down the road she will need that will continue closer monitoring. She is stable from cardiac standpoint to be discharged home, she needs to have a follow-up with me in 1 week, to consider event monitor, and close cardiac monitoring for possible need for pacemaker (3) CHF (congestive heart failure): Qualifiers: Heart failure type: diastolic Heart failure chronicity: acute on chronic Qualified Code(s): I50.33 - Acute on chronic diastolic (congestive) heart failure Code(s): I50.9 - Heart failure, unspecified Status: Acute Assessment and Plan: -She has acute on chronic HF-pEF in setting of marked sinus bradycardia. -Resume gentle diuresis with careful monitoring of Cr. -Recently, she had echo 06/07/2020: LVEF 55-60%, grade 2 diastolic dyfunction, moderate , moderate pulmonary HTN. (4) Acute and chronic respiratory failure with hypercapnia: Code(s): J96.22 - Acute and chronic respiratory failure with hypercapnia Status: Acute Assessment and Plan: -She needs pulmonary f/u. (5) Hypertension: Qualifiers: Hypertension type: unspecified Qualified Code(s): I10 - Essential (primary) hypertension Code(s): I10 - Essential (primary) hypertension Status: Chronic Assessment and Plan: -BP moderately elevated. -monitor BP with diuresis. Subjective Date/time seen: 06/19/20 11:07 she feels better today, no chest pain no dizziness no lightheadedness, I had her walk with the nursing staff, her heart rate picked up to as high as 72, at rest her heart rate is 52 now. No signs of AV block on the monitor Exam Narrative: Exam Narrative: Const: General: no acute distress and alert Nutritional Appearance: obese Orientation/consciousness: patient oriented x3 HENMT: Head: normal to inspection Neck: Neck: normal visual inspection Resp: Effort & Inspection: normal respiratory effort Auscultation: clear to auscultation bilaterally, no rales, no rhonchi and no wheezes Cardio: Jugular venous distension: no JVD Rate: bradycardic Rhythm: bradycardic, regular rhythm Heart sounds: 1/6 systolic murmur, Tenderness to palpation present left central chest wall. Peripheral pulses slightly diminished in the legs. GI: Inspection: non-distended GI Palp: Yes Soft to palpation and No Tenderness to palpation present (GI) Skin: General skin exam: normal color Neuro: General: patient oriented x3, moves all extremities, no focal motor deficits and CN's II-XI intact bilaterally Speech: normal speech Extrem: General: trace edema bilateral Psych: Appearance: well kempt Affect: normal affect (GI) Objective Data Vital Signs Vital Signs: Vital Signs - 24 hr 06/18/20 14:07 06/18/20 14:14 06/18/20 14:15 Temperature 35.8 C L Pulse Rate 44 L 46
[2020-06-19 11:34] LABS: Glucose Point of Care 109 (65-105)
[2020-06-19 12:14] LABS: Alveolar/Arterial O2 Gradient 67.4 mmHg; Base Excess ABG 11.2 mEq/l (+/-2.0); Fractional Inspired Oxygen 32 %; HCO3 ABG 39.4 mEq/l (22.0-26.0); Oxygen Content ABG 15.1 %vol (16.0-22.0); Oxygen Saturation ABG 93.7 % (95.0-100.0); Oxyhemoglobin 93.3 % THb (90.0-100.0); PO2 ABG 74.9 mmHg (80.0-100.0); PO2 FiO2 Ratio Arterial Blood 2.34 %; Total Hemoglobin 11.5 g/dL (12.0-18.0); pH ABG 7.348 (7.350-7.450)
[2020-06-19 12:17] LABS: Device NASAL CANNULA; Modified Allen's Test Pass; PCO2 ABG 73.4 mmHg (35.0-45.0); Site Drawn LEFT RADIAL
--- NOTE | 2020-06-19 13:32 | PCPTNOTE ---
Attempted to see pt for PT evaluation. Hold per nursing due to CO2 retention. Recheck ABGs in two hours. Will attempt again tomorrow.
[2020-06-19 15:13] LABS: Alveolar/Arterial O2 Gradient 55.5 mmHg; Base Excess ABG 14.1 mEq/l (+/-2.0); Carboxyhemoglobin 0.3 % THb (0-2.0); Fractional Inspired Oxygen 30 %; HCO3 ABG 41.3 mEq/l (22.0-26.0); Methemoglobin ABG 0.2 %THb (0-1.5); Oxygen Content ABG 14.4 %vol (16.0-22.0); Oxygen Saturation ABG 95.2 % (95.0-100.0); Oxyhemoglobin 94.2 % THb (90.0-100.0); PO2 ABG 78.7 mmHg (80.0-100.0); PO2 FiO2 Ratio Arterial Blood 2.62 %; Reduced Hemoglobin 5.3 %THb (0-5.0); Total Hemoglobin 10.8 g/dL (12.0-18.0); pH ABG 7.403 (7.350-7.450)
[2020-06-19 15:14] LABS: Device NON-INVASIVE VENT; Modified Allen's Test Pass; Non-Invasive Expiratory Pressure 5 CMH2O; Non-Invasive Inspiratory Pressure 15 CMH2O; Non-Invasive Vent Rate 8 /MIN; PCO2 ABG 67.8 mmHg (35.0-45.0); Site Drawn RIGHT RADIAL
--- NOTE | 2020-06-19 15:19 | PM.IMPN ---
Progress Note: A&P Assessment and Plan (1) Sinus bradycardia: Code(s): R00.1 - Bradycardia, unspecified Status: Acute Assessment and Plan: -patient was sinus Matt last hospitalization which was attributed to [place] with a heart rate going down to 30s, her regular while awake with activity was 50-60. -patient's bradycardia is similar compared to previous history -continue monitor on telemetry 06/19/20 15:19 patient is 80-year-old female with history of have bundle branch block with bradycardia apparently patient was seen by her home health nurse noticed that the patient heart rate was in 30s EMS was called and patient was brought to the emergency department for further evaluation, apparently this is chronic for with the patient, patient was seen by Cardiology and was asked the patient to walk with the nurse while exertion patient's heart rate climbed to 72, however patient has a history of COPD and patient is CO2 retainer, discussed with asset protection manager and suspect due to persistent CO2 may be cause of her bradycardia, ABG was done which showed CO2 73.4 patient was placed on BiPAP for 2 hours and repeat ABG showed CO2 67.8 and slight improvement in her resting heart rate and 50s, will keep the patient overnight place the patient on BiPAP recheck her ABG in the morning, consult button reclaimer for further recommendation, patient will benefit from sleep study. patient will be seen by her asset protection manager and further recommendation to follow. (2) COPD (chronic obstructive pulmonary disease): Qualifiers: COPD type: unspecified COPD Qualified Code(s): J44.9 - Chronic obstructive pulmonary disease, unspecified Code(s): J44.9 - Chronic obstructive pulmonary disease, unspecified Status: Chronic Assessment and Plan: -patient on 3 L home oxygen therapy, currently on 3 L -patient needs to establish care with button reclaimer (3) Hypertension: Qualifiers: Hypertension type: unspecified Qualified Code(s): I10 - Essential (primary) hypertension Code(s): I10 - Essential (primary) hypertension Status: Chronic Assessment and Plan: - vital stable, continue meds (4) Diabetes mellitus: Code(s): E11.9 - Type 2 diabetes mellitus without complications Status: Acute Assessment and Plan: - continue home Lantus 10 units daily - sliding scale insulin moderate scale while inpatient (5) CHF (congestive heart failure): Qualifiers: Heart failure type: diastolic Heart failure chronicity: acute on chronic Qualified Code(s): I50.33 - Acute on chronic diastolic (congestive) heart failure Code(s): I50.9 - Heart failure, unspecified Status: Acute Assessment and Plan: -patient on torsemide at home, may have missed a few doses for cardiac catheterization dye -no rales on lung exam, breathing comfortably on 3 L home oxygen therapy level with O2 sat 100%, will continue home dose -Echo (06/07) showing EF 55-60% with Grade 2 diastolic dysfunction, moderate and moderate pulmonary HTN but no wall motion abnormalities -patient likely needs cardiac/pulmonary rehab (6) Elevated troponin: Code(s): R77.8 - Other specified abnormalities of plasma proteins Status: Acute Assessment and Plan: -patient left heart catheterization 06/16/2020 with ballooning and stent of mid LAD -patient is taking aspirin and Plavix for dual anti-platelet therapy, no EKG changes, elevated troponin likely secondary to recent catheterization, doubt stent thrombosis - troponin elevated at 0.290 x2, will recheck in the morning (7) Chronic renal failure, stage 3 (moderate): Qualifiers: Chronic kidney disease stage 3 subtype: unspecified whether 3a or 3b Qualified Code(s): N18.30 - Chronic kidney disease, stage 3 unspecified Code(s): N18.30 - Chronic kidney disease, stage 3 unspecified Status: Acute Assessment and Plan: - creatinine b
--- NOTE | 2020-06-19 16:20 | PC.NURSE ---
This patient, Chandni Vicente, was transferred to [[id number]] on 06/19/20 at 1620. Personal belongings sent with patient. Report given to [NU Dukes @ [phone] ]. Appropriate documentation sent with patient.
--- NOTE | 2020-06-19 16:35 | PC.NURSE ---
This patient, Chandni Vicente, was received from IMU on 06/19/20 at 1635. Personal belongings list checked and signed. Patient/family oriented to unit policies and routines
[2020-06-19] MEDS: TIZANIDINE HCL 4 MG TABLET PO (17:41)
[2020-06-19 17:57] LABS: Glucose Point of Care 97 (65-105)
[2020-06-19] MEDS: acetaZOLAMIDE TAB 250 MG TABLET 500 MG PO (20:09)
[2020-06-19] MEDS: ENOXAPARIN 40 MG/0.4 ML SYRINGE SUB-Q (20:10)
[2020-06-19 20:24] LABS: Glucose Point of Care 184 (65-105)
[2020-06-20] VITALS (29 sets, daily range): BP systolic 141–200; BP diastolic 42–100; PULSE 39–93; RESP 14–26; TEMP 36.1–36.8; O2SAT 94–100
[2020-06-20 06:16] LABS: Glucose Point of Care 93 (65-105)
[2020-06-20] MEDS: ISOSORBIDE MONONITRATE 30 MG TAB.ER.24H PO (06:21)
[2020-06-20] MEDS: amLODIPine BESYLATE 5 MG TABLET PO (06:21)
[2020-06-20] MEDS: TORSEMIDE 20 MG TABLET PO (06:22)
[2020-06-20] MEDS: acetaZOLAMIDE TAB 250 MG TABLET 500 MG PO (06:22)
[2020-06-20 06:29] LABS: Anion Gap 8.99999 mmol/L (8-16); Blood Urea Nitrogen 35 mg/dL (7-17); Carbon Dioxide > 40 mmol/L (22-30); Chloride 95 mmol/L (98-107); Estimated CRCL calculation 40 ml/min; Estimated Glomerular Filt Rate 40; Glucose 96 mg/dL (65-105); Magnesium 1.9 mg/dL (1.6-2.3); Potassium 3.5 mmol/L (3.4-5.0); Sodium 144 mmol/L (137-145)
[2020-06-20] MEDS: hydrALAZINE HCL 20 MG/ML VIAL 10 MG IV PUSH (06:48)
--- NOTE | 2020-06-20 06:50 | PM.EVENT ---
Event Note Event Note Event Note: Rapid response was called for patient maybe having dysarthria and chest pressure. I did neuro evaluation, cranial nerves 2-12 intact with no deficits. She spoke clearly to me and nurse notes voice has come back to baseline. She may have been just waking up causing her voice to be muffled to the nurse. Holding off on CT scan. She does endorse chest pain. She had stent placed 4 days ago in mid LAD and she is not missing any doses of aspirin and plavix, doubt stent thrombus. BP elevated at 200 systolic which is likely culprit. She received her AM meds. Will give hydralazine 10mg IV push once. With recent C, we know there are not other lesions we need to worry about at this time, less likely ACS. Will need to trend blood pressures. EKG reviewed, sinus jv with LBBB looks similar to EKG on admission. Will get troponins x2 to trend.
[2020-06-20 06:57] LABS: Hematocrit 33.7 % (37.0-47.0); Hemoglobin 9.8 g/dL (12.0-15.0); Mean Corpuscular HGB Conc 29.1 g/dl (32-36); Mean Corpuscular Volume 99.7 fl (80-100); Mean Platelet Volume 12.5 fl (7.4-10.4); Platelet Count Result 178 k/mm3 (150-375); Red Blood Count 3.38 M/mm3 (4.2-5.4); Red Cell Distribution Width 17.3 % (11.5-14.5); White Blood Count 4.5 K/mm3 (4.5-10.0)
[2020-06-20 07:11] LABS: Troponin I 0.201 ng/mL (0.000-0.034)
--- NOTE | 2020-06-20 07:25 | ECG_ITS ---
Measurements Intervals [place] Rate: 61 P: -53 MT: 128 QRS: -24 QRSD: 157 T: 91 QT: 456 QTc: 463 Interpretive Statements SINUS OR ECTOPIC ATRIAL RHYTHM VENTRICULAR PREMATURE COMPLEX LEFT BUNDLE BRANCH BLOCK BASELINE ARTIFACT- I, II, III ABNORMAL ECG Electronically Signed On 06-20-2020 7:54:01 CDT by Rick Zapata D.O.
[2020-06-20] MEDS: FERROUS SULFATE 324 MG TABLET PO ×2 (08:09→18:03)
[2020-06-20] MEDS: ASPIRIN 81 MG ENTERIC TABLET PO (08:10)
[2020-06-20] MEDS: ATORVASTATIN 40 MG TABLET 80 MG PO (08:10)
[2020-06-20] MEDS: calcitrioL 0.25 MCG CAPSULE PO (08:11)
[2020-06-20] MEDS: FENOFIBRATE NANOCRYSTALLIZED 145 MG TABLET PO (08:12)
[2020-06-20] MEDS: PANTOPRAZOLE 40 MG TABLET PO (08:14)
[2020-06-20] MEDS: hydrALAZINE HCL 50 MG TABLET PO ×4 (08:23→20:07)
[2020-06-20 08:24] LABS: Alveolar/Arterial O2 Gradient 35.3 mmHg; Base Excess ABG 15.2 mEq/l (+/-2.0); Carboxyhemoglobin 0.3 % THb (0-2.0); Fractional Inspired Oxygen 32 %; HCO3 ABG 43.2 mEq/l (22.0-26.0); Methemoglobin ABG 0.3 %THb (0-1.5); Oxygen Content ABG 15.1 %vol (16.0-22.0); Oxygen Saturation ABG 97.5 % (95.0-100.0); Oxyhemoglobin 96.6 % THb (90.0-100.0); PO2 ABG 105.2 mmHg (80.0-100.0); PO2 FiO2 Ratio Arterial Blood 3.29 %; Reduced Hemoglobin 2.8 %THb (0-5.0); pH ABG 7.379 (7.350-7.450)
[2020-06-20 08:27] LABS: Device NASAL CANNULA; Modified Allen's Test Pass; PCO2 ABG 74.9 mmHg (35.0-45.0); Site Drawn LEFT RADIAL
[2020-06-20] MEDS: MORPHINE SULFATE (*CRX) 2 MG/ML INJ (08:45)
[2020-06-20] MEDS: PREGABALIN (*CRX) 50 MG CAPSULE 200 MG PO (08:47)
[2020-06-20] MEDS: CLOPIDOGREL BISULFATE 75 MG TABLET PO (09:03)
[2020-06-20] MEDS: INSULIN GLARGINE (*BKC) 100 UNITS/ML 10 UNITS SUB-Q (09:05)
[2020-06-20] MEDS: EUCERIN CREAM 120 GM JAR 1 APPLIC TOPICAL (09:05)
--- NOTE | 2020-06-20 09:17 | PCPTNOTE ---
Attempted PT eval. Marely JUDGE stated to hold therapy due to pt having chest pain and high BP. Will try again at later time.
[2020-06-20 09:19] LABS: Glucose Point of Care 113 (65-105)
--- NOTE | 2020-06-20 10:05 | PM.CNPUL ---
Assessment and Plan Assessment and plan (1) Chronic respiratory failure with hypercapnia: Code(s): J96.12 - Chronic respiratory failure with hypercapnia Status: Acute Assessment and Plan: She may not be good candidate for Trilogy given that she cannot tolerate full face mask, her overnight pulse oxy showed no desaturions overnight and she has other issues including an acute COPD exacerbation and acute CHF that need to be addressed which may be contributing to her acute dyspnea. Will reveluate once COPD and CHF excerbations have resolved. Would preferer that she have a sleep study instead and titrated with customized CPAP and BIPAP pressures with nasal pillows as outpatient. - daily AM ABGs for 1-2 more days. (2) COPD exacerbation: Code(s): J44.1 - Chronic obstructive pulmonary disease with (acute) exacerbation Status: Acute Assessment and Plan: - prednisone 20 mg daily for days - Atrovent Nebs 0.5 mg Q6h - Pulmicort Nebs 0.5 mg Q12h - Will need to start on Symbicort and Spiriva closer to discharge (3) CHF exacerbation: Qualifiers: Heart failure type: diastolic Qualified Code(s): I50.33 - Acute on chronic diastolic (congestive) heart failure Code(s): I50.9 - Heart failure, unspecified Status: Acute Assessment and Plan: - continue toresemide - diamox and spironolactone added - continue to monitor daily Cr and electrolytes. History of Present Illness History of Present Illness Consult date: 06/20/20 Chief complaint: Bradycardia/elevated troponin/SOB Narrative: 80 y/o obese female presents with complaints of dizziness, dyspnea, chest tightness, orthopnea. She was bradycardia on admission. CXR shows signs of CHF and BNP was significant elevated although Cr was abnormal as well. She does have LE edema. She complains of cough that's non productive but denies any infectious symptoms. She was found in chronic hypercapnic respiratory failure but no acuute distress and no mental status changes. ph was not lower than 7.34. She was placed on BIPAP but she said this did not make her feel better and in fact made her very nervous and anxious. She has 40 pack year smoking history and quit about 20 years ago. Non of her family members tell her that she snores but she does have multiple night time awakenings and feels a bit tired and sleep during the day. She had a cath on 06/13/20 which showed significant CAD in LAD which was opened and stented without complications. Her EF on 06/07/20 showed some diastolic dysfunction, normal EF, moderate and moderate to severe pulmonary hypertension. Review of Systems Review of Systems: All systems reviewed & are unremarkable except as noted in HPI and below PMFSH Past Medical History Medical History Anxiety Chronic pain COPD (chronic obstructive pulmonary disease) Depression Diabetes Fibromyalgia Heart attack Hyperlipidemia Hypertension Left bundle branch block Muscle spasm Pneumonia Recurrent urinary tract infection Surgical History Surgical History History of coronary artery stent placement Family History Family History Mother Acute myocardial infarction Social History Social History Smoking status: Former smoker Tobacco type: cigarettes Alcohol intake: never Substance use: never Gender identity (if verbalized by the patient): Female Spiritual care concerns: No Meds Home Medications and Allergies Home Medications Medication Instructions Recorded Confirmed Type amlodipine 5 mg PO DAILY 06/07/20 06/18/20 History atorvastatin 80 mg PO DAILY 06/07/20 06/18/20 History biotin 1 mg PO DAILY 06/07/20 06/18/20 History calcitriol 0.25 mcg PO DAILY 06/07/20 06/18/20 History sharla
[2020-06-20 10:07] LABS: Troponin I 0.191 ng/mL (0.000-0.034)
[2020-06-20 10:53] LABS: Glucose Point of Care 158 (65-105)
--- NOTE | 2020-06-20 11:39 | PCRCNOTE ---
Window of time for administration has passed. See next scheduled administration.
[2020-06-20] MEDS: SPIRONOLACTONE 25 MG TABLET PO (12:00)
--- NOTE | 2020-06-20 13:43 | PM.PNCARD ---
Progress Note: A&P Assessment and Plan (1) CAD (coronary artery disease): Code(s): I25.10 - Atherosclerotic heart disease of [place] coronary artery without angina pectoris Status: Acute Assessment and Plan: Patient is a 80 year woman with history of CAD s/p PCI/stent midLAD 06/13/2020, s/p NSTEMI, HF-pEF, HTN, hyperlipidemia, COPD, fibromyalgia, chronic pain, depression, anxiety, who is seen in cardiac consultation for dyspnea. -her chest pain is atypical, with local tenderness, and wthout recent change. -EKG with chronic LBBB. -Initial troponin I was 0.291, then 0.290, then pending. Initial flat elevation of trop I consistent with recent PCI in setting of CKD. -Continue ASA, Plavix, statin, and Imdur. No beta-rafa due to sinus bradycardia. -Obtain lipid panel. (2) Sinus bradycardia: Code(s): R00.1 - Bradycardia, unspecified Status: Acute Assessment and Plan: -She has marked sinus bradycardia 37-42 bpm, symptomatic with dizziness. her heart rate improved with walking to as high as 72, at this time she does not need pacemaker as there is no clear indication for that. However have a feeling that down the road she will need that will continue closer monitoring. She is stable from cardiac standpoint to be discharged home, she needs to have a follow-up with me in 1 week, to consider event monitor, and close cardiac monitoring for possible need for pacemaker (3) CHF (congestive heart failure): Qualifiers: Heart failure type: diastolic Heart failure chronicity: acute on chronic Qualified Code(s): I50.33 - Acute on chronic diastolic (congestive) heart failure Code(s): I50.9 - Heart failure, unspecified Status: Acute Assessment and Plan: -She has acute on chronic HF-pEF in setting of marked sinus bradycardia. -Resume gentle diuresis with careful monitoring of Cr. -Recently, she had echo 06/07/2020: LVEF 55-60%, grade 2 diastolic dyfunction, moderate , moderate pulmonary HTN. (4) Acute and chronic respiratory failure with hypercapnia: Code(s): J96.22 - Acute and chronic respiratory failure with hypercapnia Status: Acute Assessment and Plan: -She needs pulmonary f/u. (5) Hypertension: Qualifiers: Hypertension type: unspecified Qualified Code(s): I10 - Essential (primary) hypertension Code(s): I10 - Essential (primary) hypertension Status: Chronic Assessment and Plan: -BP moderately elevated. -monitor BP with diuresis. Subjective Date/time seen: 06/20/20 13:43 she feels tired and fatigued today, still with some shortness of breath and cough. Had occasional tightness in the chest but no new EKG changes. She continued to have slight elevation of troponin but this has been her baseline. Her heart rate noted to be slow but improves with walking and with exertion Exam Narrative: Exam Narrative: Const: General: no acute distress and alert Nutritional Appearance: obese Orientation/consciousness: patient oriented x3 HENMT: Head: normal to inspection Neck: Neck: normal visual inspection Resp: Effort & Inspection: normal respiratory effort Auscultation: clear to auscultation bilaterally, no rales, no rhonchi and no wheezes Cardio: Jugular venous distension: no JVD Rate: bradycardic Rhythm: bradycardic, regular rhythm Heart sounds: 1/6 systolic murmur, Tenderness to palpation present left central chest wall. Peripheral pulses slightly diminished in the legs. GI: Inspection: non-distended GI Palp: Yes Soft to palpation and No Tenderness to palpation present (GI) Skin: General skin exam: normal color Neuro: General: patient oriented x3, moves all extremities, no focal motor deficits and CN's II-XI intact bilaterally Speech: normal speech Extrem: General: trace edema bilateral Psych: Appearance: well kempt Affect: normal affect (GI) Objective Data Vital Signs Vital Signs: Vital Signs - 24 hr
--- NOTE | 2020-06-20 13:44 | PC.NURSE ---
On 06/20/20, the student, [ Renee Thompson [facility] certified nursing assistant], provided care and completed [employer] documentation on this patient. I have reviewed the student's documentation and agree with the findings.
--- NOTE | 2020-06-20 15:08 | PM.IMPN ---
Progress Note: A&P Assessment and Plan (1) Sinus bradycardia: Code(s): R00.1 - Bradycardia, unspecified Status: Acute Assessment and Plan: Continue to watch on telemetry, possibly secondary to hyper capnia (2) COPD (chronic obstructive pulmonary disease): Qualifiers: COPD type: unspecified COPD Qualified Code(s): J44.9 - Chronic obstructive pulmonary disease, unspecified Code(s): J44.9 - Chronic obstructive pulmonary disease, unspecified Status: Chronic Assessment and Plan: -patient on 3 L home oxygen therapy, currently on 3 L -seen by pulmology pt co2 retainer pt to be on bipap prn (3) Hypertension: Qualifiers: Hypertension type: unspecified Qualified Code(s): I10 - Essential (primary) hypertension Code(s): I10 - Essential (primary) hypertension Status: Chronic Assessment and Plan: - vital stable, continue meds (4) Diabetes mellitus: Code(s): E11.9 - Type 2 diabetes mellitus without complications Status: Acute Assessment and Plan: - continue home Lantus 10 units daily and ssi (5) CHF (congestive heart failure): Qualifiers: Heart failure chronicity: acute on chronic Heart failure type: diastolic Qualified Code(s): I50.33 - Acute on chronic diastolic (congestive) heart failure Code(s): I50.9 - Heart failure, unspecified Status: Acute Assessment and Plan: -Echo (06/07) showing EF 55-60% with Grade 2 diastolic dysfunction, moderate and moderate pulmonary HTN but no wall motion abnormalities -patient likely needs cardiac/pulmonary rehab (6) Elevated troponin: Code(s): R77.8 - Other specified abnormalities of plasma proteins Status: Acute Assessment and Plan: -patient left heart catheterization 06/16/2020 with ballooning and stent of mid LAD -patient is taking aspirin and Plavix for dual anti-platelet therapy, no EKG changes, elevated troponin likely secondary to recent catheterization, doubt stent thrombosis (7) Chronic renal failure, stage 3 (moderate): Qualifiers: Chronic kidney disease stage 3 subtype: unspecified whether 3a or 3b Qualified Code(s): N18.30 - Chronic kidney disease, stage 3 unspecified Code(s): N18.30 - Chronic kidney disease, stage 3 unspecified Status: Acute Assessment and Plan: - creatinine baseline is 1.2-1.9, creatinine today is 1.3 (8) Chronic respiratory failure with hypercapnia: Code(s): J96.12 - Chronic respiratory failure with hypercapnia Status: Acute Assessment and Plan: -patient on 3 L home oxygen therapy, currently saturation 100% on 3 L - patient is chronically hypercapnic - patient will likely need cardiac rehab on disposition -Will have physical therapy evaluate (9) Muscle spasm: Code(s): M62.838 - Other muscle spasm Status: Acute (10) Left bundle branch block: Code(s): I44.7 - Left bundle-branch block, unspecified Status: Acute Assessment and Plan: not new when compared to previous EKG on 06/07/2020 Subjective Date/time seen: 06/20/20 15:08 Interval history: 80-year-old female with history of have bundle branch block with bradycardia apparently patient was seen by her home health nurse noticed that the patient heart rate was in 30s EMS was called and patient was brought to the emergency department for further evaluation, patient has a history of COPD and patient is CO2 retainer. pt will benefit from bipap prn. Pt is being seen by pulmology and cardiology. Pt had reported chest pain his morning, pt was given morphine iv. pts had ekg and troponin trended. pts bp was high this morning was given hydralazine iv, pt appears more stable now. Review of Systems Review of Systems: All systems reviewed & are unremarkable except as noted in HPI and below Exam Narrative: Exam Narrative: Patient is in mild chest discomfort HEENT: eyes are cl
--- NOTE | 2020-06-20 15:11 | PCPTNOTE ---
Spoke w/ Daniel RN, pt still w/ high BP. Will hold therapy and try again tomorrow.
[2020-06-20] MEDS: IPRATROPIUM BR 0.02% INH SOLN 0.5 MG/2.5 ML VIAL INHALATION ×2 (15:13→19:39)
[2020-06-20] MEDS: TIZANIDINE HCL 4 MG TABLET PO (15:42)
--- NOTE | 2020-06-20 18:45 | PC.NURSE ---
This patient, Chandni Vicente, was transferred to [ IMU] on 06/20/20 at 1845. Personal belongings sent with patient. Report given to ANN MARIE ]. Appropriate documentation sent with patient.
--- NOTE | 2020-06-20 19:22 | PC.NURSE ---
This patient, Chandni Vicente, was received from [facility] on 06/20/20 at 1838. Report received from [facility]. Personal belongings list checked and signed. Patient/family oriented to unit policies and routines
[2020-06-20] MEDS: BUDESONIDE RESPULE NEB 0.5 MG/2 ML AMP INHALATION (19:40)
[2020-06-20] MEDS: ENOXAPARIN 40 MG/0.4 ML SYRINGE SUB-Q (20:07)
[2020-06-20 20:16] LABS: Glucose Point of Care 230 (65-105)
[2020-06-20 20:19] LABS: Glucose Point of Care 132 (65-105)
[2020-06-20] MEDS: ACETAMINOPHEN 325 MG TABLET 650 MG PO (21:04)
[2020-06-21] VITALS (27 sets, daily range): BP systolic 131–180; BP diastolic 49–82; PULSE 45–71; RESP 16–26; TEMP 36.1–36.4; O2SAT 95–100
[2020-06-21] MEDS: IPRATROPIUM BR 0.02% INH SOLN 0.5 MG/2.5 ML VIAL INHALATION ×4 (01:40→20:59)
[2020-06-21 05:00] LABS: Hematocrit 29.4 % (37.0-47.0); Hemoglobin 8.7 g/dL (12.0-15.0); Mean Corpuscular HGB Conc 29.6 g/dl (32-36); Mean Corpuscular Hemoglobin 28.8 pg (26-34); Mean Corpuscular Volume 97.4 fl (80-100); Mean Platelet Volume 12.4 fl (7.4-10.4); Platelet Count Result 173 k/mm3 (150-375); Red Blood Count 3.02 M/mm3 (4.2-5.4); Red Cell Distribution Width 17.2 % (11.5-14.5); White Blood Count 4.5 K/mm3 (4.5-10.0)
[2020-06-21 05:15] LABS: Anion Gap 6.99999 mmol/L (8-16); Blood Urea Nitrogen 33 mg/dL (7-17); Calcium 8.5 mg/dL (8.4-10.2); Carbon Dioxide > 40 mmol/L (22-30); Chloride 94 mmol/L (98-107); Estimated CRCL calculation 37 ml/min; Estimated Glomerular Filt Rate 36; Glucose 88 mg/dL (65-105); Magnesium 1.9 mg/dL (1.6-2.3); Potassium 3.1 mmol/L (3.4-5.0); Sodium 141 mmol/L (137-145)
[2020-06-21 07:47] LABS: Glucose Point of Care 89 (65-105)
[2020-06-21 08:28] LABS: Alveolar/Arterial O2 Gradient 50.3 mmHg; Base Excess ABG 13.8 mEq/l (+/-2.0); Carboxyhemoglobin 0.3 % THb (0-2.0); Fractional Inspired Oxygen 32 %; HCO3 ABG 41.5 mEq/l (22.0-26.0); Methemoglobin ABG 0.3 %THb (0-1.5); Oxygen Content ABG 14.7 %vol (16.0-22.0); Oxygen Saturation ABG 96.7 % (95.0-100.0); Oxyhemoglobin 95.8 % THb (90.0-100.0); PO2 ABG 94.1 mmHg (80.0-100.0); PO2 FiO2 Ratio Arterial Blood 2.94 %; Reduced Hemoglobin 3.6 %THb (0-5.0); Total Hemoglobin 10.8 g/dL (12.0-18.0); pH ABG 7.381 (7.350-7.450)
[2020-06-21 08:30] LABS: Device NASAL CANNULA; Modified Allen's Test Pass; PCO2 ABG 71.6 mmHg (35.0-45.0); Site Drawn LEFT RADIAL
[2020-06-21] MEDS: PREGABALIN (*CRX) 50 MG CAPSULE 200 MG PO (08:37)
[2020-06-21] MEDS: FENOFIBRATE NANOCRYSTALLIZED 145 MG TABLET PO (08:37)
[2020-06-21] MEDS: ISOSORBIDE MONONITRATE 30 MG TAB.ER.24H PO (08:37)
[2020-06-21] MEDS: ACETAMINOPHEN 325 MG TABLET 650 MG PO ×3 (08:38→21:48)
[2020-06-21] MEDS: hydrALAZINE HCL 50 MG TABLET PO (08:38)
[2020-06-21] MEDS: acetaZOLAMIDE TAB 250 MG TABLET 500 MG PO (08:39)
[2020-06-21] MEDS: TORSEMIDE 20 MG TABLET PO (08:39)
[2020-06-21] MEDS: SPIRONOLACTONE 25 MG TABLET PO (08:39)
[2020-06-21] MEDS: calcitrioL 0.25 MCG CAPSULE PO (08:39)
[2020-06-21] MEDS: ASPIRIN 81 MG ENTERIC TABLET PO (08:39)
[2020-06-21] MEDS: amLODIPine BESYLATE 5 MG TABLET PO (08:39)
[2020-06-21] MEDS: ATORVASTATIN 40 MG TABLET 80 MG PO (08:39)
[2020-06-21] MEDS: PANTOPRAZOLE 40 MG TABLET PO (08:39)
[2020-06-21] MEDS: FERROUS SULFATE 324 MG TABLET PO ×2 (08:39→17:31)
[2020-06-21] MEDS: INSULIN GLARGINE (*BKC) 100 UNITS/ML 10 UNITS SUB-Q (08:39)
[2020-06-21] MEDS: EUCERIN CREAM 120 GM JAR 1 APPLIC TOPICAL (08:42)
[2020-06-21] MEDS: CLOPIDOGREL BISULFATE 75 MG TABLET PO (08:53)
[2020-06-21] MEDS: BUDESONIDE RESPULE NEB 0.5 MG/2 ML AMP INHALATION ×2 (09:24→20:59)
--- NOTE | 2020-06-21 09:36 | PM.PNCARD ---
Progress Note: A&P Assessment and Plan (1) CAD (coronary artery disease): Code(s): I25.10 - Atherosclerotic heart disease of [place] coronary artery without angina pectoris Status: Acute Assessment and Plan: Patient is a 80 year woman with history of CAD s/p PCI/stent midLAD 06/13/2020, s/p NSTEMI, HF-pEF, HTN, hyperlipidemia, COPD, fibromyalgia, chronic pain, depression, anxiety, who is seen in cardiac consultation for dyspnea. -her chest pain is atypical, with local tenderness, and wthout recent change. -EKG with chronic LBBB. -troponin was mildly elevated with flat pattern, consistent with recent PCI in setting of CKD. -Continue medical management including ASA, Plavix, statin, and Imdur. No beta-rafa due to sinus bradycardia. (2) Sinus bradycardia: Code(s): R00.1 - Bradycardia, unspecified Status: Acute Assessment and Plan: -She had episode of marked sinus bradycardia 37-42 bpm, symptomatic with dizziness. her heart rate improved with walking to as high as 72, at this time she does not need pacemaker as there is no clear indication for that. However she will need close monitoring. - on outpt basis may benefit from event monitor, and close cardiac monitoring for possible need for pacemaker - avoid meds slowing HR (3) CHF (congestive heart failure): Qualifiers: Heart failure chronicity: acute on chronic Heart failure type: diastolic Qualified Code(s): I50.33 - Acute on chronic diastolic (congestive) heart failure Code(s): I50.9 - Heart failure, unspecified Status: Acute Assessment and Plan: -She has acute on chronic HF-pEF in setting of marked sinus bradycardia. -Resume gentle diuresis with careful monitoring of Cr. -Recently, she had echo 06/07/2020: LVEF 55-60%, grade 2 diastolic dyfunction, moderate , moderate pulmonary HTN. (4) Hypertension: Qualifiers: Hypertension type: unspecified Qualified Code(s): I10 - Essential (primary) hypertension Code(s): I10 - Essential (primary) hypertension Status: Chronic Assessment and Plan: -BP moderately elevated. - will adjust meds Subjective Date/time seen: 06/21/20 Pt feels better today. Denies CP or SOB. States that occasionally does have discomfort in R groin where she had procedure. Had some sharp chest discomfort episodes before current admission. Has problems with memory but states that had recently episodes of dizziness. Denies syncopal episodes. Pt was seen and examined, chart reviewed, d/w pt'as nurse. According to her nurse pt had episodes of bradycardia in 30's while sleeping. Now when is awake her HR is in 70's. Her BP was elevated yesterday and then after meds it was low. Today is elevated again. Review of Systems Review of Systems: All systems reviewed & are unremarkable except as noted in HPI and below Constitutional: Constitutional: Reports as per HPI Eyes: Eyes: Reports as per HPI ENT: Reports system reviewed and no additional complaints, except as documented and Reports as per HPI Cardiovascular: Cardiovascular: Reports as per HPI Respiratory: Respiratory: Reports as per HPI Gastrointestinal: Gastrointestinal: Reports as per HPI Genitourinary: Genitourinary: Reports as per HPI Musculoskeletal: Musculoskeletal: Reports as per HPI Exam Const: General: no acute distress Nutritional Appearance: well nourished Orientation/consciousness: patient oriented x3 HENMT: Head: normal to inspection and atraumatic Ears: hearing grossly normal bilaterally Face and sinus: normal facial exam Eyes: General: appearance normal, both eyes and all related structures Pupils: Equal, round and reactive pupils present EOM: EOMs intact bilaterally Neck: Neck: supple Chest: Chest palpation & inspection: normal inspection of the chest Resp: Effort & Inspection: normal respiratory effort and no respiratory distress Auscultation: clear to auscultation bilaterally C
[2020-06-21] MEDS: TIZANIDINE HCL 4 MG TABLET PO ×3 (09:38→21:48)
--- NOTE | 2020-06-21 11:10 | PM.PNPUL ---
Progress Note: A&P Assessment and Plan (1) COPD exacerbation: Code(s): J44.1 - Chronic obstructive pulmonary disease with (acute) exacerbation Status: Acute Assessment and Plan: - continue prednisone 20 mg daily for total of 5 days - continue Atrovent 0.5 mg Neb Q6h - continue pulmicort 0.5 mg Q12h - continue oxygen 24/7 to keep sats 90-93% (2) CHF exacerbation: Qualifiers: Heart failure type: diastolic Qualified Code(s): I50.33 - Acute on chronic diastolic (congestive) heart failure Code(s): I50.9 - Heart failure, unspecified Status: Acute (3) Sleep apnea: Code(s): G47.30 - Sleep apnea, unspecified Status: Acute Assessment and Plan: Would prefer that she get outpatient sleep study which I've ordered and have custom CPAP titration via nasal pillows as opposed to going home with BIPAP or Trilogy. (4) Chronic respiratory failure with hypercapnia: Code(s): J96.12 - Chronic respiratory failure with hypercapnia Status: Acute (5) Bradycardia: Code(s): R00.1 - Bradycardia, unspecified Status: Acute Assessment and Plan: Not related to sleep apnea is this is happing during the day and night. Subjective Date/time seen: 06/21/20 11:10 Interval history: Breathing has slightly improved with nebulized therapy, systemic steroids and increase diuretics. Baseline hypercapnia unchanged. Patient's nose is very sensitive and really would like to avoid BIPAP face mask. Review of Systems Review of Systems: All systems reviewed & are unremarkable except as noted in HPI and below Exam Const: General: cooperative and healthy appearing Nutritional Appearance: obese Orientation/consciousness: oriented to person, oriented to place, oriented to time and patient oriented x3 Limitations: physical limitations HENMT: Head: normal to inspection, normocephalic and atraumatic Eyes: General: appearance normal, both eyes and all related structures Neck: Neck: normal visual inspection, trachea midline and supple Cardio: Jugular venous distension: no JVD Rate: regular rate Rhythm: regular rhythm Heart sounds: S1 normal heart sound present, S2 normal heart sound present and Murmur heart sound present (aortic area ) systolic GI: Inspection: normal to inspection Auscultation: normal bowel sounds Skin: General skin exam: normal color and no rashes or lesions noted Neuro: General: oriented to person, oriented to place, oriented to time and patient oriented x3 Cognition (Neuro): normal cognition Speech: normal speech Extrem: General: edema (pitting ) bilateral Psych: Appearance: grossly normal and well kempt Mental Status: mental status grossly normal Objective Data Vital Signs Vital Signs: Vital Signs - 24 hr 06/20/20 11:49 06/20/20 12:00 06/20/20 13:05 Temperature Pulse Rate 81 63 91 Respiratory Rate 16 14 Blood Pressure 156/53 H 157/66 H Pulse Oximetry 99 98 06/20/20 13:42 06/20/20 14:00 06/20/20 15:14 Temperature 36.3 C L Pulse Rate 85 65 64 Respiratory Rate 14 18 16 Blood Pressure 171/56 H 148/62 H Pulse Oximetry 98 98 06/20/20 15:21 06/20/20 16:00 06/20/20 16:14 Temperature Pulse Rate 60 51 L 53 L Respiratory Rate 16 20 Blood Pressure Pulse Oximetry 96 06/20/20 19:35 06/20/20 19:40 06/20/20 19:45 Temperature 36.1 C L Pulse Rate 52 L 51 L Respiratory Rate 26 H 16 Blood Pressure 141/42 H Pulse Oximetry 100 95 06/20/20 19:48 06/20/20 20:00 06/20/20 20:59 Temperature Pulse Rate 54 L 74 50 L Respiratory Rate 16 20 Blood Pressure Pulse Oximetry 94 06/20/20 22:00 06/20/20 22:46 06/21/20 00:00 Temperature 36.2 C L Pulse Rate 39 L 52 L 46 L Respiratory Rate 14 26 H Blood Pressure 147/49 H Pulse Oximetry 95 99 06/21/20 01:40 06/21/20 01:45 06/21/20 01:46 Temperature Pulse Rate 48 L 48 L 48 L Respiratory Rate 16 16 20 Blood Pressure Pulse Oximetry 96
[2020-06-21 11:44] LABS: Glucose Point of Care 154 (65-105)
[2020-06-21] MEDS: POTASSIUM CHLORIDE 20 MEQ PACKET (FOR LIQUID) 40 MEQ PO (12:25)
--- NOTE | 2020-06-21 14:48 | PCOTNOTE ---
On 06/21/20, the student, Bernie Ray, provided care and [facility] this patient. I have reviewed the student's documentation and agree with the findings.
[2020-06-21 17:18] LABS: Glucose Point of Care 92 (65-105)
[2020-06-21] MEDS: hydrALAZINE HCL 25 MG TABLET PO (17:31)
[2020-06-21] MEDS: ENOXAPARIN 40 MG/0.4 ML SYRINGE SUB-Q (20:16)
[2020-06-21] MEDS: MAGNESIUM OXIDE 400 MG TABLET PO (20:16)
[2020-06-21 20:37] LABS: Glucose Point of Care 197 (65-105)
[2020-06-22] VITALS (20 sets, daily range): BP systolic 123–172; BP diastolic 44–67; PULSE 34–87; RESP 16–24; TEMP 36.2–37.6; O2SAT 95–100
[2020-06-22] MEDS: IPRATROPIUM BR 0.02% INH SOLN 0.5 MG/2.5 ML VIAL INHALATION ×4 (02:39→20:05)
[2020-06-22] MEDS: ACETAMINOPHEN 325 MG TABLET 650 MG PO ×2 (03:29→15:04)
[2020-06-22 05:13] LABS: Hematocrit 34.3 % (37.0-47.0); Hemoglobin 9.9 g/dL (12.0-15.0); Mean Corpuscular HGB Conc 28.9 g/dl (32-36); Mean Corpuscular Volume 100.6 fl (80-100); Mean Platelet Volume 12.7 fl (7.4-10.4); Platelet Count Result 158 k/mm3 (150-375); Red Blood Count 3.41 M/mm3 (4.2-5.4); Red Cell Distribution Width 17.8 % (11.5-14.5); White Blood Count 3.8 K/mm3 (4.5-10.0)
[2020-06-22 05:23] LABS: Anion Gap 4.99999 mmol/L (8-16); Blood Urea Nitrogen 32 mg/dL (7-17); Carbon Dioxide > 40 mmol/L (22-30); Chloride 96 mmol/L (98-107); Estimated CRCL calculation 33 ml/min; Estimated Glomerular Filt Rate 31; Glucose 109 mg/dL (65-105); Magnesium 2.1 mg/dL (1.6-2.3); Potassium 3.1 mmol/L (3.4-5.0); Sodium 141 mmol/L (137-145)
[2020-06-22 08:07] LABS: Glucose Point of Care 94 (65-105)
--- NOTE | 2020-06-22 08:40 | PM.PNPUL ---
Progress Note: A&P Assessment and Plan (1) COPD exacerbation: Code(s): J44.1 - Chronic obstructive pulmonary disease with (acute) exacerbation Status: Acute Assessment and Plan: - continue prednisone 20 mg daily for total of 5 days - continue Atrovent 0.5 mg Neb Q6h - continue pulmicort 0.5 mg Q12h - continue oxygen 24/7 to keep sats 90-93% (2) CHF exacerbation: Qualifiers: Heart failure type: diastolic Qualified Code(s): I50.33 - Acute on chronic diastolic (congestive) heart failure Code(s): I50.9 - Heart failure, unspecified Status: Acute (3) Sleep apnea: Code(s): G47.30 - Sleep apnea, unspecified Status: Acute Assessment and Plan: Would prefer that she get outpatient sleep study which I've ordered and have custom CPAP titration via nasal pillows as opposed to going home with BIPAP or Trilogy. (4) Chronic respiratory failure with hypercapnia: Code(s): J96.12 - Chronic respiratory failure with hypercapnia Status: Acute (5) Bradycardia: Code(s): R00.1 - Bradycardia, unspecified Status: Acute Assessment and Plan: Not related to sleep apnea is this is happing during the day and night. Time Spent With Patient Time with patient: 15 - 25 minutes Subjective Date/time seen: 06/22/20 08:40 Interval history: Doing well. No complaints, breathing is stable. Review of Systems Review of Systems: All systems reviewed & are unremarkable except as noted in HPI and below Exam Const: General: cooperative and healthy appearing Nutritional Appearance: obese Orientation/consciousness: oriented to person, oriented to place, oriented to time and patient oriented x3 Limitations: physical limitations HENMT: Head: normal to inspection, normocephalic and atraumatic Eyes: General: appearance normal, both eyes and all related structures Neck: Neck: normal visual inspection, trachea midline and supple Cardio: Jugular venous distension: no JVD Rate: bradycardic Rhythm: regular rhythm Heart sounds: S1 normal heart sound present, S2 normal heart sound present and Murmur heart sound present (aortic area ) systolic GI: Inspection: normal to inspection Auscultation: normal bowel sounds Skin: General skin exam: normal color and no rashes or lesions noted Neuro: General: oriented to person, oriented to place, oriented to time and patient oriented x3 Cognition (Neuro): normal cognition Speech: normal speech Extrem: General: edema (pitting ) bilateral Psych: Appearance: grossly normal and well kempt Mental Status: mental status grossly normal Objective Data Vital Signs Vital Signs: Vital Signs - 24 hr 06/21/20 09:20 06/21/20 09:26 06/21/20 09:29 Temperature Pulse Rate 61 61 Respiratory Rate 16 16 Blood Pressure Pulse Oximetry 95 06/21/20 10:00 06/21/20 11:26 06/21/20 12:00 Temperature 36.2 C L Pulse Rate 56 L 66 46 L Respiratory Rate 20 Blood Pressure 131/63 Pulse Oximetry 98 06/21/20 14:00 06/21/20 14:25 06/21/20 14:36 Temperature Pulse Rate 46 L 48 L 57 L Respiratory Rate 16 20 Blood Pressure Pulse Oximetry 06/21/20 15:56 06/21/20 16:00 06/21/20 18:00 Temperature 36.4 C L Pulse Rate 71 50 L 58 L Respiratory Rate 20 Blood Pressure 180/81 H Pulse Oximetry 100 06/21/20 19:21 06/21/20 20:00 06/21/20 20:50 Temperature 36.2 C L Pulse Rate 66 66 48 L Respiratory Rate 20 20 20 Blood Pressure 131/63 Pulse Oximetry 98 98 06/21/20 21:00 06/21/20 22:00 06/22/20 00:00 Temperature Pulse Rate 48 L 54 L 37 L Respiratory Rate 20 20 Blood Pressure Pulse Oximetry 96 100 06/22/20 00:08 06/22/20 01:53 06/22/20 02:30 Temperature 37.1 C Pulse Rate 37 L 41 L 47 L Respiratory Rate 20 18 Blood Pressure 123/44 L Pulse Oximetry 100 06/22/20 02:41 06/22/20 04:00 06/22/20 06:00 Temperature 36.8 C Pulse Rate 47 L 56 L 60 Respiratory Rate 18 20 B
[2020-06-22 08:55] LABS: Anion Gap 4 mmol/L (8-16); Blood Urea Nitrogen 31 mg/dL (7-17); Carbon Dioxide 37 mmol/L (22-30); Chloride 99 mmol/L (98-107); Estimated CRCL calculation 38 ml/min; Estimated Glomerular Filt Rate 36; Glucose 96 mg/dL (65-105); Magnesium 2.2 mg/dL (1.6-2.3); Potassium 3.7 mmol/L (3.4-5.0); Sodium 140 mmol/L (137-145)
[2020-06-22] MEDS: BUDESONIDE RESPULE NEB 0.5 MG/2 ML AMP INHALATION ×2 (08:56→20:04)
--- NOTE | 2020-06-22 10:01 | PM.PNCARD ---
Progress Note: A&P Assessment and Plan (1) CAD (coronary artery disease): Code(s): I25.10 - Atherosclerotic heart disease of redding coronary artery without angina pectoris Status: Acute Assessment and Plan: Patient is a 80 year woman with history of CAD s/p PCI/stent midLAD 06/13/2020, s/p NSTEMI, HF-pEF, HTN, hyperlipidemia, COPD, fibromyalgia, chronic pain, depression, anxiety, who is seen in cardiac consultation for dyspnea. -her chest pain is atypical, with local tenderness, and wthout recent change. -EKG with chronic LBBB. -troponin was mildly elevated with flat pattern, consistent with recent PCI in setting of CKD. -Continue medical management including ASA, Plavix, statin, and Imdur. No beta-rafa due to sinus bradycardia. (2) Sinus bradycardia: Code(s): R00.1 - Bradycardia, unspecified Status: Acute Assessment and Plan: -She had episode of marked sinus bradycardia 37-42 bpm, symptomatic with dizziness. her heart rate improved with walking to as high as 72, at this time she does not need pacemaker as there is no clear indication for that. However she will need close monitoring. - on outpt basis may benefit from event monitor, and close cardiac monitoring for possible need for pacemaker - avoid meds slowing HR (3) CHF (congestive heart failure): Qualifiers: Heart failure type: diastolic Heart failure chronicity: acute on chronic Qualified Code(s): I50.33 - Acute on chronic diastolic (congestive) heart failure Code(s): I50.9 - Heart failure, unspecified Status: Acute Assessment and Plan: -She has acute on chronic HF-pEF in setting of marked sinus bradycardia. -Resume gentle diuresis with careful monitoring of Cr. -Recently, she had echo 06/07/2020: LVEF 55-60%, grade 2 diastolic dyfunction, moderate , moderate pulmonary HTN. (4) Hypertension: Qualifiers: Hypertension type: unspecified Qualified Code(s): I10 - Essential (primary) hypertension Code(s): I10 - Essential (primary) hypertension Status: Chronic Assessment and Plan: -BP moderately elevated. - will adjust meds Subjective Date/time seen: 06/22/20 10:01 she feels better today, no chest pain no shortness of breath, but she is extremely weak and fatigued Exam Narrative: Exam Narrative: Const: General: no acute distress and alert Nutritional Appearance: obese Orientation/consciousness: patient oriented x3 HENMT: Head: normal to inspection Neck: Neck: normal visual inspection Resp: Effort & Inspection: normal respiratory effort Auscultation: clear to auscultation bilaterally, no rales, no rhonchi and no wheezes Cardio: Jugular venous distension: no JVD Rate: bradycardic Rhythm: bradycardic, regular rhythm Heart sounds: 1/6 systolic murmur, Tenderness to palpation present left central chest wall. Peripheral pulses slightly diminished in the legs. GI: Inspection: non-distended GI Palp: Yes Soft to palpation and No Tenderness to palpation present (GI) Skin: General skin exam: normal color Neuro: General: patient oriented x3, moves all extremities, no focal motor deficits and CN's II-XI intact bilaterally Speech: normal speech Extrem: General: trace edema bilateral Psych: Appearance: well kempt Affect: normal affect (GI) Chest: Chest palpation & inspection: normal inspection of the chest Skin: General skin exam: normal color Extrem: General: normal to inspection and no clubbing, cyanosis or edema Objective Data Vital Signs Vital Signs: Vital Signs - 24 hr 06/21/20 11:26 06/21/20 12:00 06/21/20 14:00 Temperature 36.2 C L Pulse Rate 66 46 L 46 L Respiratory Rate 20 Blood Pressure 131/63 Pulse Oximetry 98 06/21/20 14:25 06/21/20 14:36 06/21/20 15:56 Temperature 36.4 C L Pulse Rate 48 L 57 L 71 Respiratory Rate 16 20 20 Blood Pressure 180/81 H Pulse Oximetry 100 06/21/20 16:00 06/21/20 18:00 06/21/20 19:
[2020-06-22] MEDS: amLODIPine BESYLATE 5 MG TABLET PO (10:30)
[2020-06-22] MEDS: FERROUS SULFATE 324 MG TABLET PO ×2 (10:51→17:34)
[2020-06-22] MEDS: ATORVASTATIN 40 MG TABLET 80 MG PO (10:51)
[2020-06-22] MEDS: SPIRONOLACTONE 25 MG TABLET PO (10:51)
[2020-06-22] MEDS: acetaZOLAMIDE TAB 250 MG TABLET 500 MG PO (10:52)
[2020-06-22] MEDS: TORSEMIDE 20 MG TABLET PO (10:52)
[2020-06-22] MEDS: ASPIRIN 81 MG ENTERIC TABLET PO (10:52)
[2020-06-22] MEDS: LIDOCAINE 5% PATCH 1 PATCH TRANSDERM (10:52)
[2020-06-22] MEDS: calcitrioL 0.25 MCG CAPSULE PO (10:58)
[2020-06-22] MEDS: PREGABALIN (*CRX) 50 MG CAPSULE 200 MG PO (10:58)
[2020-06-22] MEDS: ISOSORBIDE MONONITRATE 30 MG TAB.ER.24H PO (10:59)
[2020-06-22] MEDS: PANTOPRAZOLE 40 MG TABLET PO (10:59)
[2020-06-22] MEDS: CLOPIDOGREL BISULFATE 75 MG TABLET PO (10:59)
[2020-06-22] MEDS: FENOFIBRATE NANOCRYSTALLIZED 145 MG TABLET PO (11:00)
[2020-06-22] MEDS: hydrALAZINE HCL 25 MG TABLET PO ×2 (11:00→17:35)
[2020-06-22] MEDS: MAGNESIUM OXIDE 400 MG TABLET PO (11:00)
[2020-06-22] MEDS: EUCERIN CREAM 120 GM JAR 1 APPLIC TOPICAL (11:01)
[2020-06-22] MEDS: INSULIN GLARGINE (*BKC) 100 UNITS/ML 10 UNITS SUB-Q (11:04)
--- NOTE | 2020-06-22 11:26 | PC.NURSE ---
This patient, Chandni Vicente, was transferred to [facility] on 06/22/20 at 1114. Personal belongings sent with patient. Report given to Tamanna. Appropriate documentation sent with patient.
[2020-06-22 11:56] LABS: Glucose Point of Care 137 (65-105)
[2020-06-22] MEDS: POTASSIUM CHLORIDE 20 MEQ PACKET (FOR LIQUID) PO (12:20)
--- NOTE | 2020-06-22 15:13 | PM.IMPN ---
Progress Note: A&P Assessment and Plan (1) Sinus bradycardia: Code(s): R00.1 - Bradycardia, unspecified Status: Acute Assessment and Plan: Possibly secondary to hypercapnia, pt will benefit from sleep study. (2) COPD (chronic obstructive pulmonary disease): Qualifiers: COPD type: unspecified COPD Qualified Code(s): J44.9 - Chronic obstructive pulmonary disease, unspecified Code(s): J44.9 - Chronic obstructive pulmonary disease, unspecified Status: Chronic Assessment and Plan: -patient on 3 L home oxygen therapy, currently on 3 L -seen by pulmology pt co2 retainer pt will need sleep study as outpat see pulmology recommendations (3) Hypertension: Qualifiers: Hypertension type: unspecified Qualified Code(s): I10 - Essential (primary) hypertension Code(s): I10 - Essential (primary) hypertension Status: Chronic Assessment and Plan: - vital stable, continue meds (4) Diabetes mellitus: Code(s): E11.9 - Type 2 diabetes mellitus without complications Status: Acute Assessment and Plan: - continue home Lantus 10 units daily and ssi (5) CHF (congestive heart failure): Qualifiers: Heart failure chronicity: acute on chronic Heart failure type: diastolic Qualified Code(s): I50.33 - Acute on chronic diastolic (congestive) heart failure Code(s): I50.9 - Heart failure, unspecified Status: Acute Assessment and Plan: -Echo (06/07) showing EF 55-60% with Grade 2 diastolic dysfunction, moderate and moderate pulmonary HTN but no wall motion abnormalities -patient likely needs cardiac/pulmonary rehab (6) Elevated troponin: Code(s): R77.8 - Other specified abnormalities of plasma proteins Status: Acute Assessment and Plan: -patient left heart catheterization 06/16/2020 with ballooning and stent of mid LAD -patient is taking aspirin and Plavix for dual anti-platelet therapy, no EKG changes, elevated troponin likely secondary to recent catheterization, doubt stent thrombosis (7) Chronic renal failure, stage 3 (moderate): Qualifiers: Chronic kidney disease stage 3 subtype: unspecified whether 3a or 3b Qualified Code(s): N18.30 - Chronic kidney disease, stage 3 unspecified Code(s): N18.30 - Chronic kidney disease, stage 3 unspecified Status: Acute Assessment and Plan: - creatinine baseline is 1.2-1.9, creatinine today is 1.3 (8) Chronic respiratory failure with hypercapnia: Code(s): J96.12 - Chronic respiratory failure with hypercapnia Status: Acute Assessment and Plan: -patient on 3 L home oxygen therapy, currently saturation 100% on 3 L - patient is chronically hypercapnic - patient will likely need cardiac rehab on disposition -Will have physical therapy evaluate (9) Muscle spasm: Code(s): M62.838 - Other muscle spasm Status: Acute (10) Left bundle branch block: Code(s): I44.7 - Left bundle-branch block, unspecified Status: Acute Assessment and Plan: not new when compared to previous EKG on 06/07/2020 Subjective Date/time seen: 06/22/20 15:13 Interval history: 80-year-old female with history of have bundle branch block with bradycardia apparently patient was seen by her home health nurse noticed that the patient heart rate was in 30s EMS was called and patient was brought to the emergency department for further evaluation, patient has a history of COPD and patient is CO2 retainer. pt is doing better, will need physical theraphy prior to dischrage. Pt to have a sleep study as outpatient. no need for triology at the moment. cardiology are also ok for dischrage hopefully tomorrow. no further bradycardia seen. Review of Systems Review of Systems: All systems reviewed & are unremarkable except as noted in HPI and below Exam Narrative: Exam Narrative: Patient comfortable HEENT: eyes are clear a
[2020-06-22 16:33] LABS: Glucose Point of Care 143 (65-105)
[2020-06-22] MEDS: TIZANIDINE HCL 4 MG TABLET PO (20:26)
[2020-06-22] MEDS: ENOXAPARIN 40 MG/0.4 ML SYRINGE SUB-Q (20:26)
[2020-06-22 21:51] LABS: Glucose Point of Care 113 (65-105)
[2020-06-23] VITALS (9 sets, daily range): BP systolic 142–164; BP diastolic 51–56; PULSE 56–68; RESP 20; TEMP 36.7; O2SAT 97–98
[2020-06-23] MEDS: IPRATROPIUM BR 0.02% INH SOLN 0.5 MG/2.5 ML VIAL INHALATION ×2 (01:51→07:38)
[2020-06-23] MEDS: ACETAMINOPHEN 325 MG TABLET 650 MG PO ×2 (03:28→10:35)
[2020-06-23 06:12] LABS: Hematocrit 30.2 % (37.0-47.0); Mean Corpuscular HGB Conc 29.8 g/dl (32-36); Mean Corpuscular Hemoglobin 29.1 pg (26-34); Mean Corpuscular Volume 97.7 fl (80-100); Mean Platelet Volume 12.3 fl (7.4-10.4); Platelet Count Result 141 k/mm3 (150-375); Red Blood Count 3.09 M/mm3 (4.2-5.4); White Blood Count 4.4 K/mm3 (4.5-10.0)
[2020-06-23 06:23] LABS: Anion Gap 4 mmol/L (8-16); Blood Urea Nitrogen 28 mg/dL (7-17); Calcium 8.7 mg/dL (8.4-10.2); Carbon Dioxide 39 mmol/L (22-30); Chloride 102 mmol/L (98-107); Estimated CRCL calculation 37 ml/min; Estimated Glomerular Filt Rate 36; Glucose 86 mg/dL (65-105); Magnesium 2.1 mg/dL (1.6-2.3); Potassium 3.4 mmol/L (3.4-5.0); Sodium 145 mmol/L (137-145)
[2020-06-23] MEDS: BUDESONIDE RESPULE NEB 0.5 MG/2 ML AMP INHALATION (07:38)
[2020-06-23] MEDS: acetaZOLAMIDE TAB 250 MG TABLET 500 MG PO (08:01)
[2020-06-23] MEDS: TORSEMIDE 20 MG TABLET PO (08:01)
[2020-06-23] MEDS: ATORVASTATIN 40 MG TABLET 80 MG PO (08:01)
[2020-06-23] MEDS: calcitrioL 0.25 MCG CAPSULE PO (08:01)
[2020-06-23] MEDS: POTASSIUM CHLORIDE 20 MEQ PACKET (FOR LIQUID) PO (08:03)
[2020-06-23] MEDS: PANTOPRAZOLE 40 MG TABLET PO (08:04)
[2020-06-23] MEDS: SPIRONOLACTONE 25 MG TABLET PO (08:04)
[2020-06-23] MEDS: CLOPIDOGREL BISULFATE 75 MG TABLET PO (08:04)
[2020-06-23] MEDS: ASPIRIN 81 MG ENTERIC TABLET PO (08:04)
[2020-06-23] MEDS: FENOFIBRATE NANOCRYSTALLIZED 145 MG TABLET PO (08:05)
[2020-06-23] MEDS: MAGNESIUM OXIDE 400 MG TABLET PO (08:05)
[2020-06-23] MEDS: LIDOCAINE 5% PATCH 1 PATCH TRANSDERM (08:06)
[2020-06-23] MEDS: amLODIPine BESYLATE 5 MG TABLET PO (08:06)
[2020-06-23] MEDS: ISOSORBIDE MONONITRATE 30 MG TAB.ER.24H PO (08:06)
[2020-06-23 08:14] LABS: Glucose Point of Care 88 (65-105)
[2020-06-23] MEDS: PREGABALIN (*CRX) 50 MG CAPSULE 200 MG PO (08:15)
[2020-06-23] MEDS: INSULIN GLARGINE (*BKC) 100 UNITS/ML 10 UNITS SUB-Q (08:17)
--- NOTE | 2020-06-23 09:01 | PM.PNPUL ---
Progress Note: A&P Assessment and Plan (1) COPD exacerbation: Code(s): J44.1 - Chronic obstructive pulmonary disease with (acute) exacerbation Status: Acute Assessment and Plan: - continue prednisone 20 mg daily for total of 5 days - I've discontinued nebulized atrovent and pulmicort - will start Symbicort 160/4.5 mcg 2 puffs Q12h - will start Spiriva 18 mcg 1 puff daily - continue oxygen 24/7 to keep sats 90-93% - can be discharged home from pulmonary perspective (2) CHF exacerbation: Qualifiers: Heart failure type: diastolic Qualified Code(s): I50.33 - Acute on chronic diastolic (congestive) heart failure Code(s): I50.9 - Heart failure, unspecified Status: Acute Assessment and Plan: - d/c diamox upon discharge, this is medications is not intended for outpatient use. (3) Sleep apnea: Code(s): G47.30 - Sleep apnea, unspecified Status: Acute Assessment and Plan: Would prefer that she get outpatient sleep study which I've ordered and have custom CPAP titration via nasal pillows as opposed to going home with BIPAP or Trilogy. (4) Chronic respiratory failure with hypercapnia: Code(s): J96.12 - Chronic respiratory failure with hypercapnia Status: Acute (5) Bradycardia: Code(s): R00.1 - Bradycardia, unspecified Status: Acute Assessment and Plan: Not related to sleep apnea is this is happing during the day and night. Time Spent With Patient Time with patient: 15 - 25 minutes Subjective Date/time seen: 06/23/20 09:01 Interval history: Feeling well. No complaints. Review of Systems Review of Systems: All systems reviewed & are unremarkable except as noted in HPI and below Exam Const: General: cooperative and healthy appearing Nutritional Appearance: obese Orientation/consciousness: oriented to person, oriented to place, oriented to time and patient oriented x3 Limitations: physical limitations HENMT: Head: normal to inspection, normocephalic and atraumatic Eyes: General: appearance normal, both eyes and all related structures Neck: Neck: normal visual inspection, trachea midline and supple Cardio: Jugular venous distension: no JVD Rate: bradycardic Rhythm: regular rhythm Heart sounds: S1 normal heart sound present, S2 normal heart sound present and Murmur heart sound present (aortic area ) systolic GI: Inspection: normal to inspection Auscultation: normal bowel sounds Skin: General skin exam: normal color and no rashes or lesions noted Neuro: General: oriented to person, oriented to place, oriented to time and patient oriented x3 Cognition (Neuro): normal cognition Speech: normal speech Extrem: General: edema (pitting ) bilateral Psych: Appearance: grossly normal and well kempt Mental Status: mental status grossly normal Objective Data Vital Signs Vital Signs: Vital Signs - 24 hr 06/22/20 09:06 06/22/20 10:00 06/22/20 12:00 Temperature 36.3 C L Pulse Rate 66 62 68 Respiratory Rate 18 18 Blood Pressure 142/60 H Pulse Oximetry 100 06/22/20 14:51 06/22/20 15:01 06/22/20 20:08 Temperature Pulse Rate 85 87 60 Respiratory Rate 18 18 20 Blood Pressure Pulse Oximetry 97 06/22/20 20:09 06/22/20 20:25 06/22/20 21:17 Temperature 37.6 C Pulse Rate 60 77 60 Respiratory Rate 20 20 18 Blood Pressure 172/56 H Pulse Oximetry 98 06/22/20 22:40 06/23/20 01:47 06/23/20 01:59 Temperature Pulse Rate 60 64 Respiratory Rate 24 H 20 Blood Pressure Pulse Oximetry 06/23/20 05:34 06/23/20 07:39 06/23/20 07:41 Temperature 36.7 C Pulse Rate 57 L 68 68 Respiratory Rate 20 20 Blood Pressure 164/56 H Pulse Oximetry 98 97 06/23/20 07:47 Temperature Pulse Rate 68 Respiratory Rate 20 Blood Pressure Pulse Oximetry Intake/Output Intake/Output: Intake & Output 06/20/20 06/21/20 06/22/20 06/23/20 23:59 23:59 23:59 23:59 Intake Total 1900 134
[2020-06-23] MEDS: FERROUS SULFATE 324 MG TABLET PO ×2 (09:42→16:43)
[2020-06-23] MEDS: hydrALAZINE HCL 25 MG TABLET PO ×2 (09:42→16:43)
[2020-06-23] MEDS: EUCERIN CREAM 120 GM JAR 1 APPLIC TOPICAL (09:43)
[2020-06-23 10:08] LABS: Uric Acid 8.1 mg/dL (2.5-7.5)
[2020-06-23] MEDS: ONDANSETRON HCL ODT 4 MG TABLET PO (10:56)
[2020-06-23 12:01] LABS: Glucose Point of Care 123 (65-105)
--- NOTE | 2020-06-23 13:24 | PM.DS ---
DS: Admitting Diagnosis Admitting Diagnosis Admitting Diagnosis: Bradycardia/elevated troponin/SOB DS: Discharge Diagnosis Discharge Diagnosis (1) Sinus bradycardia: Code(s): R00.1 - Bradycardia, unspecified Status: Acute Assessment and Plan: May be related to medications, heart rate has improved after adjusting medications. Beta blockers were stopped. (2) COPD (chronic obstructive pulmonary disease): Qualifiers: COPD type: unspecified COPD Qualified Code(s): J44.9 - Chronic obstructive pulmonary disease, unspecified Code(s): J44.9 - Chronic obstructive pulmonary disease, unspecified Status: Chronic Assessment and Plan: -patient on 3 L home oxygen therapy, currently on 3 L -seen by pulmology pt co2 retainer pt will need sleep study as outpatient see pulmology recommendations below - continue prednisone 20 mg daily for total of 5 days -Stop nebulized treatments atrovent and pulmicort - will start Symbicort 160/4.5 mcg 2 puffs Q12h - will start Spiriva 18 mcg 1 puff daily (3) Hypertension: Qualifiers: Hypertension type: unspecified Qualified Code(s): I10 - Essential (primary) hypertension Code(s): I10 - Essential (primary) hypertension Status: Chronic Assessment and Plan: - Bp stable, continue meds (4) Diabetes mellitus: Code(s): E11.9 - Type 2 diabetes mellitus without complications Status: Acute Assessment and Plan: - continue home Lantus 10 units daily and ssi (5) CHF (congestive heart failure): Qualifiers: Heart failure type: diastolic Heart failure chronicity: acute on chronic Qualified Code(s): I50.33 - Acute on chronic diastolic (congestive) heart failure Code(s): I50.9 - Heart failure, unspecified Status: Acute Assessment and Plan: -Echo (06/07) showing EF 55-60% with Grade 2 diastolic dysfunction, moderate and moderate pulmonary HTN but no wall motion abnormalities -patient likely needs cardiac/pulmonary rehab later (6) Elevated troponin: Code(s): R77.8 - Other specified abnormalities of plasma proteins Status: Acute Assessment and Plan: -patient left heart catheterization 06/16/2020 with ballooning and stent of mid LAD -patient is taking aspirin and Plavix for dual anti-platelet therapy, no EKG changes, elevated troponin likely secondary to recent catheterization, doubt stent thrombosis (7) Chronic renal failure, stage 3 (moderate): Qualifiers: Chronic kidney disease stage 3 subtype: unspecified whether 3a or 3b Qualified Code(s): N18.30 - Chronic kidney disease, stage 3 unspecified Code(s): N18.30 - Chronic kidney disease, stage 3 unspecified Status: Acute Assessment and Plan: - creatinine baseline is 1.2-1.9, creatinine today is 1.4 (8) Chronic respiratory failure with hypercapnia: Code(s): J96.12 - Chronic respiratory failure with hypercapnia Status: Acute Assessment and Plan: -patient on 3 L home oxygen therapy, currently saturation 100% on 3 L - patient is chronically hypercapnic - patient will likely need cardiac rehab later -Will have physical therapy evaluate (9) Muscle spasm: Code(s): M62.838 - Other muscle spasm Status: Acute Assessment and Plan: Lidoderm patch for low back pain (10) Left bundle branch block: Code(s): I44.7 - Left bundle-branch block, unspecified Status: Acute Assessment and Plan: not new when compared to previous EKG on 06/07/2020 (11) Gout: Code(s): M10.9 - Gout, unspecified Status: Acute Assessment and Plan: URIC level high pt complains of ankle pain and swelling and foot pain and swelling in the left foot. Xray shows no fracture. swelling maybe gout related as complains of alot of pain so colchicine given for 7 days for pain relief. DS: Summary Time Spent with Patient Time attestation: Total daya
[2020-06-23] MEDS: TIZANIDINE HCL 4 MG TABLET PO (14:09)
--- NOTE | 2020-07-23 09:13 | PM.IMPN ---
Progress Note: A&P Assessment and Plan (1) Sinus bradycardia: Code(s): R00.1 - Bradycardia, unspecified Status: Acute Assessment and Plan: May be related to medications, heart rate has improved after adjusting medications. Beta blockers were stopped. (2) COPD (chronic obstructive pulmonary disease): Qualifiers: COPD type: unspecified COPD Qualified Code(s): J44.9 - Chronic obstructive pulmonary disease, unspecified Code(s): J44.9 - Chronic obstructive pulmonary disease, unspecified Status: Chronic Assessment and Plan: -patient on 3 L home oxygen therapy, currently on 3 L -seen by pulmology pt co2 retainer pt will need sleep study as outpatient see pulmology recommendations below - continue prednisone 20 mg daily for total of 5 days -Stop nebulized treatments atrovent and pulmicort - will start Symbicort 160/4.5 mcg 2 puffs Q12h - will start Spiriva 18 mcg 1 puff daily (3) Hypertension: Qualifiers: Hypertension type: unspecified Qualified Code(s): I10 - Essential (primary) hypertension Code(s): I10 - Essential (primary) hypertension Status: Chronic Assessment and Plan: - Bp stable, continue meds (4) Diabetes mellitus: Code(s): E11.9 - Type 2 diabetes mellitus without complications Status: Acute Assessment and Plan: - continue home Lantus 10 units daily and ssi (5) CHF (congestive heart failure): Qualifiers: Heart failure type: diastolic Heart failure chronicity: acute on chronic Qualified Code(s): I50.33 - Acute on chronic diastolic (congestive) heart failure Code(s): I50.9 - Heart failure, unspecified Status: Acute Assessment and Plan: -Echo (06/07) showing EF 55-60% with Grade 2 diastolic dysfunction, moderate and moderate pulmonary HTN but no wall motion abnormalities -patient likely needs cardiac/pulmonary rehab later (6) Elevated troponin: Code(s): R77.8 - Other specified abnormalities of plasma proteins Status: Acute Assessment and Plan: -patient left heart catheterization 06/16/2020 with ballooning and stent of mid LAD -patient is taking aspirin and Plavix for dual anti-platelet therapy, no EKG changes, elevated troponin likely secondary to recent catheterization, doubt stent thrombosis (7) Chronic renal failure, stage 3 (moderate): Qualifiers: Chronic kidney disease stage 3 subtype: unspecified whether 3a or 3b Qualified Code(s): N18.30 - Chronic kidney disease, stage 3 unspecified Code(s): N18.30 - Chronic kidney disease, stage 3 unspecified Status: Acute Assessment and Plan: - creatinine baseline is 1.2-1.9, (8) Chronic respiratory failure with hypercapnia: Code(s): J96.12 - Chronic respiratory failure with hypercapnia Status: Acute Assessment and Plan: -patient on 3 L home oxygen therapy, currently saturation 100% on 3 L - patient is chronically hypercapnic - patient will likely need cardiac rehab later -Will have physical therapy evaluate (9) Muscle spasm: Code(s): M62.838 - Other muscle spasm Status: Acute Assessment and Plan: Lidoderm patch for low back pain (10) Left bundle branch block: Code(s): I44.7 - Left bundle-branch block, unspecified Status: Acute Assessment and Plan: not new when compared to previous EKG on 06/07/2020 (11) Gout: Code(s): M10.9 - Gout, unspecified Status: Acute Assessment and Plan: Subjective Date/time seen: 06/21/2020 Interval history: 80-year-old female with history of have bundle branch block with bradycardia apparently patient was seen by her home health nurse noticed that the patient heart rate was in 30s EMS was called and patient was brought to the emergency department for further evaluation, patient has a history of COPD and patient is CO2 retainer. pt will benefit from bipap prn. Pt is b
== END 2020-06-23 17:00 | disposition home health service (06) | DRG 308 ==
LOC: ANHED 15:44 → ANHIMU 15:58 → ANH3MEDSUR 06-20 14:52 → ANH3MED 06-23 13:24 → ANH3MEDSUR 06-25 12:39 → ANHIMU 06-25 12:39
PROVIDERS: Internal Medicine Cardiovascular Disease; Internal Medicine Critical Care Medicine; Student in an Organized Health Care Education/Training Program; Admitting Provider Family Medicine; Emergency Provider Emergency Medicine; PCP Internal Medicine; Visit Provider Family Medicine
DX: R00.1 Bradycardia, unspecified (principal); I50.33 Acute on chronic diastolic (congestive) heart failure; I13.0 Hypertensive heart and chronic kidney disease with heart failure and stage 1 through stage 4 chronic kidney disease, or unspecified chronic kidney disease; J44.1 Chronic obstructive pulmonary disease with (acute) exacerbation; J96.12 Chronic respiratory failure with hypercapnia; E11.22 Type 2 diabetes mellitus with diabetic chronic kidney disease; N18.30 Chronic kidney disease, stage 3 unspecified; T50.905A Adverse effect of unspecified drugs, medicaments and biological substances, initial encounter; I25.10 Atherosclerotic heart disease of native coronary artery without angina pectoris; I44.7 Left bundle-branch block, unspecified; G47.30 Sleep apnea, unspecified; R77.8 Other specified abnormalities of plasma proteins; M10.9 Gout, unspecified; M79.7 Fibromyalgia; M62.838 Other muscle spasm; Z87.891 Personal history of nicotine dependence; Z99.81 Dependence on supplemental oxygen; Z79.4 Long term (current) use of insulin; Z79.82 Long term (current) use of aspirin; Z95.5 Presence of coronary angioplasty implant and graft
CPT/HCPCS: 36415; 36600; 71045; 80048; 80053; 80061; 82375; 82805; 83050; 83735; 83880; 84443; 84484; 84550; 85025; 85027; 85610; 85730; 86850; 86900; 86901; 93005; 94002; 94003; 94640; 94660; 94762; 96372; 97110; 97116; 97161; 97165; 97530; 97535; 99285; A9270; G0378; J0360; J1650; J1815; J2270

== ENCOUNTER 2020-06-28 10:50 | Inpatient (IN) | payer MEDICARE, SELFPAY ==
[2020-06-28] VITALS (38 sets, daily range): BP systolic 122–196; BP diastolic 56–157; PULSE 62–114; RESP 14–26; TEMP 36.9–38.2; O2SAT 90–99; BMI 38.6
--- NOTE | ~2020-06-28 | XR_ITS ---
EXAMINATION: XR chest 1V portable DATE: 06/28/2020 12:16 INDICATION: Shortness of breath, fever, and cough. TECHNIQUE: A single frontal view of the chest was obtained. COMPARISON: Chest single view 06/20/2020, chest CT 06/06/2020 FINDINGS: There are small pleural effusions. There are airspace opacities in the lower lung zones. No pneumothorax. Cardiomegaly is noted. There is a large hiatal hernia. IMPRESSION: 1. Small pleural effusions. 2. Airspace opacities in lower lung zones, consistent with atelectasis versus pneumonia. 3. Large hiatal hernia. 4. Cardiomegaly. Reviewed, dictated and finalized at location A. IMPRESSION: 1. Small pleural effusions. 2. Airspace opacities in lower lung zones, consistent with atelectasis versus p neumonia. 3. Large hiatal hernia. 4. Cardiomegaly.
--- NOTE | ~2020-06-28 | XR_ITS ---
EXAMINATION: XR_CERV2-3V_CR DATE: 07/03/2020 18:29 INDICATION: Back pain. TECHNIQUE: 3 views of cervical spine were obtained. COMPARISON: None. FINDINGS: There is 2 mm anterolisthesis of C2 on C3 and C3 on C4, 2 mm retrolisthesis of C4 on C5 and C5 on C6, and 2 mm anterolisthesis of C7 on T1. There is 8 degrees dextrocurvature of cervicothoraci c spine. Vertebral body heights are normal. There is mildly decreased disc height at C3-C4 and severe ly decreased disc height from C4-C5 through C6-C7. There is multilevel severe uncovertebral joint and facet joint osteoarthritis. There is mild central canal stenosis at C3-C4, C4-C5, C5-C6, and C6-C7. IMPRESSION: 1. Severe cervical spondylosis. Reviewed, dictated and finalized at location A. RITY COMPLIANCE SPECIALIST
--- NOTE | ~2020-06-28 | XR_ITS ---
EXAMINATION: XR thoracic spine 3V DATE: 07/03/2020 18:29 INDICATION: Back pain. TECHNIQUE: 3 views of thoracic spine were obtained. COMPARISON: Chest CT 06/06/2020 FINDINGS: There is 27 degrees levoscoliosis of thoracolumbar spine. There is a chronic burst fracture of T12 with 2/5 loss of height. There is moderately decreased disc height at T9-T10 and mildly decre ased disc height at many levels in the mid and lower thoracic spine. There are endplate osteophytes a t most levels. IMPRESSION: 1. Moderate thoracic spondylosis. 2. Thoracolumbar levoscoliosis. Reviewed, dictated and finalized at location A. ECH PRODUCTION SPECIALIST
--- NOTE | ~2020-06-28 | XR_ITS ---
EXAMINATION: XR lumbar spine 2-3V DATE: 07/03/2020 18:29 INDICATION: Back pain. TECHNIQUE: 3 views of lumbar spine were obtained. COMPARISON: Lumbar spine radiographs 04/17/2013, CT 04/18/2018 FINDINGS: There is at least 20 degrees levoscoliosis of thoracolumbar spine. There is a chronic burst fracture of T12 with 2/5 loss of height. There is a chronic compression fracture of L3 with 1/5 loss of height. There is 3 mm retrolisthesis of L3 on L4. There is mildly decreased disc height at L1-L2, severely decreased disc height at L2-L3, mildly decreased disc height at L4-L5, and severely decreas ed disc height at L5-S1. There is severe facet joint osteoarthritis in lower lumbar spine. IMPRESSION: 1. Severe lumbar spondylosis. 2. Thoracolumbar levoscoliosis. Reviewed, dictated and finalized at location A. LBENZENE OXIDIZER
--- NOTE | ~2020-06-28 | XR_ITS ---
XR chest PICC line 06/29/2020 17:29 Indication: PICC line insertion Procedure: AP portable chest Comparison: Comparison to multiple prior studies sequentially, with oldest reviewed study dated 05/30. Findings: Cardiomegaly. PICC line tip in the SVC. Bibasilar infiltrates. Small left pleural effusion. No pneumothorax. Advanced degenerative changes of the shoulders. Impression: 1: Bibasilar infiltrates which may represent atelectasis and/or pneumonia. 2: Small left pleural effusion. Reviewed, dictated and finalized at location A. Impression: 1: Bibasilar infiltrates which may represent atelectasis and/or pneumonia. 2: Small left pleural effusion.
--- NOTE | ~2020-06-28 | XR_ITS ---
EXAMINATION: XR chest 1V portable INDICATION: Pneumonia and shortness of breath TECHNIQUE: Portable AP chest at 0535 hours COMPARISON: 06/29/2020 FINDINGS: A right upper extremity PICC ends with its tip at the superior cavoatrial junction. There i s stable cardiomegaly. There are diffuse opacities throughout all lung zones with slight worsening in the right midlung zone. There is no pleural effusion or pneumothorax. A large hiatal hernia is noted . IMPRESSION: 1. Diffuse lung disease, consistent with pneumonia. 2. Cardiomegaly. 3. Large hiatal hernia. Reviewed, dictated and finalized at location A. RACTOR BUYER
--- NOTE | 2020-06-28 11:05 | ECG_ITS ---
Measurements Intervals [place] Rate: 79 P: VA: 0 QRS: -12 QRSD: 140 T: 119 QT: 373 QTc: 428 Interpretive Statements PROBABLY SINUS OR ECTOPIC ATRIAL RHYTHM (SIGNIFICANT BASELINE ARTIFACT) ATRIAL PREMATURE COMPLEXES LEFT BUNDLE BRANCH BLOCK BASELINE ARTIFACT- I, II, III, AVR, AVL, AVF, V1-V6 ABNORMAL ECG Electronically Signed On 06-28-2020 12:49:55 CDT by Rick Zapata D.O.
[2020-06-28 11:42] LABS: Alveolar/Arterial O2 Gradient 93.5 mmHg; Base Excess ABG 9.4 mEq/l (+/-2.0); Carboxyhemoglobin 0.7 % THb (0-2.0); Fractional Inspired Oxygen 32 %; HCO3 ABG 36.5 mEq/l (22.0-26.0); Methemoglobin ABG 0.3 %THb (0-1.5); Oxygen Content ABG 13.2 %vol (16.0-22.0); Oxyhemoglobin 88.6 % THb (90.0-100.0); PO2 ABG 59.1 mmHg (80.0-100.0); PO2 FiO2 Ratio Arterial Blood 1.85 %; Reduced Hemoglobin 10.4 %THb (0-5.0); Total Hemoglobin 10.6 g/dL (12.0-18.0)
[2020-06-28 11:43] LABS: PCO2 ABG 64.6 mmHg (35.0-45.0)
[2020-06-28 11:44] LABS: Device NASAL CANNULA; Modified Allen's Test Pass; Site Drawn LEFT RADIAL
[2020-06-28 11:51] LABS: Basophils Percent Auto 0.1 % (0.2-1.2); Hematocrit 34.6 % (37.0-47.0); Hemoglobin 10.1 g/dL (12.0-15.0); Immature Granulocyte Absolute 0.05 K/mm3 (0.00-0.031); Immature Granulocyte Percent A 0.7 % (0-0.5); Immature Platelet Fraction Pct 8.9 % (0.9-11.2); Lymphocytes Absolute Auto 0.21 K/mm3 (0.9-3.2); Lymphocytes Percent Auto 3.1 % (18.3-44.2); Mean Corpuscular HGB Conc 29.2 g/dl (32-36); Mean Corpuscular Hemoglobin 28.5 pg (26-34); Mean Corpuscular Volume 97.5 fl (80-100); Mean Platelet Volume 12.9 fl (7.4-10.4); Monocytes Absolute Auto 0.2 K/mm3 (0.1-0.6); Monocytes Percent Auto 2.9 % (2.6-8.5); Neutrophils Absolute Auto 6.3 K/mm3 (1.3-6.7); Neutrophils Percent Auto 93.2 % (45.5-73.1); Platelet Count Result 134 k/mm3 (150-375); Red Blood Count 3.55 M/mm3 (4.2-5.4); Red Cell Distribution Width 17.2 % (11.5-14.5); White Blood Count 6.8 K/mm3 (4.5-10.0)
[2020-06-28 11:58] LABS: INR 2.8; Prothrombin Time 29.1 Seconds (11.1-14.7)
[2020-06-28 12:00] LABS: Partial Thromboplastin Time 53.4 SECONDS (22.3-36.8)
[2020-06-28 12:01] LABS: Lactic Acid Reflex 0.8 mmol/L (0.7-2.1)
[2020-06-28 12:10] LABS: Add Urine Microscopic? NO; Appearance Urine Clear (Clear); Bilirubin Urine Negative (Negative); Blood Urine Negative (Negative); Color Urine Straw (Yellow); Glucose Urine UA Negative (Negative); Ketones Urine Negative (Negative); Leukocyte Esterase Ur Negative LEU/UL (Negative); Nitrate Urine Negative (Negative); Protein Urine Negative (Negative); Specific Grav Ur 1.008 (1.001-1.035); Urobilinogen Urine Negative mg/dL (<2.0)
[2020-06-28 13:19] LABS: NT Pro B Type Natriuretic Pept 2400 PG/ML (5-100)
--- NOTE | 2020-06-28 13:20 | ED.GENADULT ---
HPI - General Adult General Chief complaint: Shortness of Breath/Dyspnea Stated complaint: STEMI Source: patient, family and EMS Mode of arrival: EMS Limitations: clinical condition History of Present Illness HPI narrative: Patient is a 80-year-old female who presents to emergency department for evaluation of shortness of breath weakness and confusion at home today patient had recent stenting of the LAD and after which had had a return visit to the emergency department at that time it was bradycardia elevated troponin and shortness of breath she had some changes in her medications made was sent home after a few days at home is returning with confusion weakness and shaking patient is somewhat of a limited historian due to the confusion on arrival but is alert and oriented to person place and reason for being in the emergency department. Patient initially had a STEMI called in the field but was called off by cardiology who were in the ER reviewing the case. Patient's daughter is also present is the one who contacted EMS. Patient notes some epigastric abdominal pain that radiates to the back. Patient on arrival is in no distress and does present with low-grade fever and is coughing. Patient with history of chronic COPD on 3 L nasal cannula. Related Data Home Medications Medication Instructions Recorded Confirmed amlodipine 5 mg PO DAILY 06/07/20 06/18/20 atorvastatin 80 mg PO DAILY 06/07/20 06/18/20 biotin 1 mg PO DAILY 06/07/20 06/18/20 calcitriol 0.25 mcg PO DAILY 06/07/20 06/18/20 [id number]-sge-ygpabjch-oleic-dha 1 tablet PO DAILY 06/07/20 06/18/20 cranberry extract 250 mg PO DAILY 06/07/20 06/18/20 fenofibrate nanocrystallized 145 mg PO DAILY 06/07/20 06/18/20 isosorbide mononitrate 30 mg PO DAILY 06/07/20 06/18/20 pantoprazole 40 mg PO DAILY 06/07/20 06/18/20 pregabalin 200 mg PO DAILY 06/07/20 06/18/20 torsemide 20 mg PO DAILY 06/07/20 06/18/20 tizanidine 4 mg PO BID PRN 06/19/20 06/19/20 Allergies Allergy/AdvReac Type Severity Reaction Status Date / Time amitriptyline Allergy Unknown Unknown Verified 06/19/20 21:24 chlordiazepoxide Allergy Unknown Unknown Verified 06/19/20 21:24 Review of Systems Review of Systems: All systems reviewed & are unremarkable except as noted in HPI and below PMFSH Past Medical History Medical History Anxiety Chronic pain COPD (chronic obstructive pulmonary disease) Depression Diabetes Fibromyalgia Heart attack Hyperlipidemia Hypertension Left bundle branch block Muscle spasm Pneumonia Recurrent urinary tract infection Surgical History Surgical History History of coronary artery stent placement Family History Family History Mother Acute myocardial infarction Social History Social History Smoking status: Former smoker Tobacco type: cigarettes Alcohol intake: never Substance use: never Gender identity (if verbalized by the patient): Female Spiritual care concerns: No Exam Narrative: Exam Narrative: GENERAL: Ill-appearing, obese, and in no acute distress. HEAD: Normocephalic, atraumatic. EYES: PERRLA and EOMI. ENT: Nares clear, no rhinorrhea or epistaxis. Mucous membranes moist. Oropharynx without tonsillar hypertrophy exudate or other lesions. NECK: Supple. No adenopathy or masses. CHEST: Diminished on auscultation. No respiratory distress. No wheezes rales or rhonchi HEART: Regular rate and rhythm. No murmur heard. Normal peripheral pulses. ABDOMEN: Soft, mild tenderness to the abdomen with bruising in the lower abdomen from injections, nondistended EXTREMITIES: Normal range of motion. No edema. SKIN: Warm, dry, no rash. NEURO: No focal deficits. Alert and oriented person place and reason for being in the emergency department. Normal
[2020-06-28 14:07] LABS: Alanine Aminotransferase 24 U/L (4-35); Albumin Level 3.4 g/dL (3.5-5.1); Alkaline Phosphatase 51 U/L (38-126); Anion Gap 7.99999 mmol/L (8-16); Aspartate Amino Transferase 45 U/L (14-36); Bilirubin,Total 0.5 mg/dL (0.2-1.3); Blood Urea Nitrogen 54 mg/dL (7-17); Calcium 8.4 mg/dL (8.4-10.2); Carbon Dioxide > 40 mmol/L (22-30); Chloride 94 mmol/L (98-107); Estimated CRCL calculation 32 ml/min; Estimated Glomerular Filt Rate 34; Glucose 131 mg/dL (65-105); Lipase 266 U/L (23-300); Potassium 4.1 mmol/L (3.4-5.0); Sodium 142 mmol/L (137-145)
[2020-06-28 14:17] LABS: Troponin I 0.118 ng/mL (0.000-0.034)
[2020-06-28] MEDS: FUROSEMIDE INJ 40 MG/4 ML VIAL IV PUSH (14:19)
--- NOTE | 2020-06-28 15:40 | PC.NURSE ---
Pt. stated the zithromax was making them nauseous. ERP notiifed. ERP ordered 10mg of reglan via IVP via verbal order readback.
[2020-06-28] MEDS: METOCLOPRAMIDE HCL INJ 10 MG/2 ML VIAL (15:45)
--- NOTE | 2020-06-28 17:22 | ADMGEN ---
This patient, Chandni Vicente, was admitted to Intensive Care Unit-9 at 1722. Patient/family oriented to hospital policies and general routines including ID bracelet, bed and alarms, visiting hours, pain management, procedures, bathroom and other care routines, personal items, smoking policy, room service/diet, and visiting hours. Information on how to activate the Rapid Response Team has been discussed. Patient/Family are encouraged to report perceived risks to care and to ask questions if they do not understand what they are told or what they should do.
[2020-06-28 17:53] LABS: Hematocrit 32.7 % (37.0-47.0); Hemoglobin 9.9 g/dL (12.0-15.0)
--- NOTE | 2020-06-28 18:00 | PM.IMHP ---
H&P: HPI History of Present Illness Date/Time: 06/28/20 19:00 Chief complaint: Shortness of breath and weakness. Narrative: Chandni Vicente is a pleasant 80-year-old female hypertension, type 2 diabetes mellitus, COPD with chronic respiratory failure on 3 L nasal cannula, congestive heart failure and several other comorbidities who presented to the emergency department earlier today via EMS from home for evaluation of shortness of breath and weakness. She is known to the hospitalist service and this will be her 3rd admission in May. She was initially admitted from June 07 - after she presented with chest pain found to have non STEMI with left heart catheterization on 06/13 showing a mid LAD lesion which was treated with balloon angioplasty and stent. She was not started on beta-blockers due to ongoing bradycardia. She also had acute on chronic respiratory failure and she responded well to the BiPAP initially but continued to refuse at thereafter. She was hospitalized again from June 19 through with complaints of weakness and shortness of breath in which she was treated for COPD exacerbation. She felt okay on day of discharge and did well for several days up until yesterday when she began feeling more short of breath and weak. This morning she had a temperature of 101? and she has also been complaining of a headache, and thus she was brought in for evaluation. Chest x-ray demonstrated atelectasis versus pneumonia and she was admitted for this in addition to an elevated troponin although she has not had any chest pain. This dictation was performed several hours after the patient was seen and she has come back positive for COVID-19. As mentioned she has been hospitalized several times, but she shares a home with her , children, and grandchildren as well so she has been around several people although reports no sick contacts. Of note, patient had a bowel movement emergency department which was reportedly dark and was Hemoccult positive. She denies abdominal and epigastric pain. No significant indigestion symptoms. She was recently started on Brilinta after her stent was placed as detailed above. Review of Systems Review of Systems: Narrative: Twelve systems were reviewed with pertinent positives and negatives as per HPI. She reports frontal headache and mild nonproductive cough. She has had generalized weakness but denies focal weakness. No dysphagia or concerns for aspiration. She denies orthopnea and significant lower extremity edema. Appetite has been decreased last 24 hours. No nausea or vomiting. Except as documented, all other systems were reviewed and are negative. [facility] Past Medical History Medical History (Updated 06/28/20 @ 23:07 by Arminda Morris PA-C) Anemia Anxiety Chronic kidney disease, stage 3 Baseline creatinine is between 1.3 and 1.50. Chronic obstructive pulmonary disease Chronic pain Chronic respiratory failure with hypoxia Congestive heart failure Echocardiogram on 06/07/2020 showed grade 2 diastolic dysfunction, ejection fraction of 55 to 60%, moderate aortic stenosis, and moderate pulmonary hypertension without wall motion abnormalities. Coronary artery disease Status post angioplasty status stent to the mid LAD on 06/13/2020. Depression Fibromyalgia Gastroesophageal reflux disease Hyperlipidemia Hypertension Insulin dependent type 2 diabetes mellitus Complicated by diabetic peripheral neuropathy. 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
[2020-06-28] MEDS: ALBUTEROL SULFATE (*SP) AEROSOL 1 PUFF 4 PUFF INHALATION (19:52)
[2020-06-28] MEDS: ACETAMINOPHEN 325 MG TABLET 650 MG PO (19:59)
[2020-06-28 21:07] LABS: Hematocrit 32.4 % (37.0-47.0); Hemoglobin 9.8 g/dL (12.0-15.0)
[2020-06-28 21:19] LABS: Prothrombin Time 12.6 Seconds (11.1-14.7)
[2020-06-28 21:20] LABS: Partial Thromboplastin Time 34.5 SECONDS (22.3-36.8)
[2020-06-28 21:40] LABS: Troponin I 0.116 ng/mL (0.000-0.034)
[2020-06-28 21:59] LABS: Glucose Point of Care 148 (65-105)
[2020-06-28 22:07] LABS: SARS-CoV-2 RNA PCR Positive
[2020-06-29] VITALS (15 sets, daily range): BP systolic 85–155; BP diastolic 45–80; PULSE 42–90; RESP 16–25; TEMP 36.5–37.7; O2SAT 94–100
[2020-06-29] MEDS: ACETAMINOPHEN 325 MG TABLET 650 MG PO ×3 (01:36→18:01)
[2020-06-29] MEDS: TIZANIDINE HCL 4 MG TABLET PO ×2 (01:36→18:01)
[2020-06-29 02:04] LABS: Troponin I 0.157 ng/mL (0.000-0.034)
[2020-06-29 05:43] LABS: Basophils Percent Auto 0.3 % (0.2-1.2); Hematocrit 30.3 % (37.0-47.0); Immature Granulocyte Absolute 0.02 K/mm3 (0.00-0.031); Immature Granulocyte Percent A 0.6 % (0-0.5); Lymphocytes Absolute Auto 0.53 K/mm3 (0.9-3.2); Lymphocytes Percent Auto 15.2 % (18.3-44.2); Mean Corpuscular HGB Conc 29.7 g/dl (32-36); Mean Corpuscular Hemoglobin 28.4 pg (26-34); Mean Corpuscular Volume 95.6 fl (80-100); Mean Platelet Volume 11.8 fl (7.4-10.4); Monocytes Absolute Auto 0.3 K/mm3 (0.1-0.6); Neutrophils Absolute Auto 2.7 K/mm3 (1.3-6.7); Neutrophils Percent Auto 75.9 % (45.5-73.1); Platelet Count Result 131 k/mm3 (150-375); Red Blood Count 3.17 M/mm3 (4.2-5.4); White Blood Count 3.5 K/mm3 (4.5-10.0)
--- NOTE | 2020-06-29 06:00 | PM.CNCAR ---
Assessment and Plan Assessment and plan (1) Elevated troponin: Code(s): R77.8 - Other specified abnormalities of plasma proteins Status: Acute Assessment and Plan: she has chronic slight elevation of troponin, which is slightly better than her last admission, she had non ST elevation myocardial infarction few weeks ago at that time she had angioplasty stent placement to the LAD with good results, but she continued to have slight elevation of troponin in view of renal failure, and recent non STEMI (2) COVID-19: Code(s): U07.1 - COVID-19 Status: Acute Assessment and Plan: currently in ICU on isolation (3) Insulin dependent type 2 diabetes mellitus: Code(s): E11.9 - Type 2 diabetes mellitus without complications; Z79.4 - manager long term care (current) use of insulin Status: Acute (4) Bradycardia: Code(s): R00.1 - Bradycardia, unspecified Status: Acute Assessment and Plan: she has bradycardia with heart rate response to exercise and exertion, no AV block at this time there is no need for indication for pacemaker (5) Sleep apnea: Code(s): G47.30 - Sleep apnea, unspecified Status: Acute (6) COPD exacerbation: Code(s): J44.1 - Chronic obstructive pulmonary disease with (acute) exacerbation Status: Acute Additional Plan Thank you for allowing me to participate in this patient's care, I will be following up with you. Please do not hesitate to call me for any other inquiry History of Present Illness History of Present Illness Consult date/time: 06/29/20 06:00 chief complaint is shortness of breath. 9-year-old lady with history of known coronary disease status post recent LAD stent, history of known bradycardia, with history of COPD and sleep apnea. He was in the hospital few times with she COPD exacerbation, came to the hospital this time because of worsening shortness of breath and cough noted to have COPD exacerbation, and had low-grade temperature she was positive for COVID-19. Currently she is admitted to the intensive care unit and she is currently on isolation. I did my evaluation from outside of the room, as she is not able to give history, and observation was done through the window in view of COVID-19 infection. She is known to me from previous admission with the recent admission last week, at that time she had bilateral decreased breathing sounds, and had early infiltrate on her chest x-ray. She is noted to have occasional bradycardia, but several times heart rate improved with her standing and walking. Currently her heart rate 42-50, but no AV block noted. Reason For Visit: Shortness of breath and weakness. Review of Systems Constitutional: Constitutional: Reports as per [facility] Past Medical History Medical History Anemia Anxiety Chronic kidney disease, stage 3 Baseline creatinine is between 1.3 and 1.50. Chronic obstructive pulmonary disease Chronic pain Chronic respiratory failure with hypoxia Congestive heart failure Echocardiogram on 06/07/2020 showed grade 2 diastolic dysfunction, ejection fraction of 55 to 60%, moderate aortic stenosis, and moderate pulmonary hypertension without wall motion abnormalities. Coronary artery disease Status post angioplasty status stent to the mid LAD on 06/13/2020. Depression Fibromyalgia Gastroesophageal reflux disease Hyperlipidemia Hypertension Insulin dependent type 2 diabetes mellitus Complicated by diabetic peripheral neuropathy. Left bundle branch block Pneumonia Recurrent urinary tract infection Surgical History Surgical History (Updated 06/28/20 @ 22:55 by Arminda Morris PA-C) History of coronary artery stent placement Family History Family History (Updated 06/28/20 @ 22:55 by Arminda Morris PA-C) Mother Acute myocardial infarction Other Diabetes mellitus Hypertension Social History Social History (U
[2020-06-29 06:08] LABS: Alanine Aminotransferase 20 U/L (4-35); Albumin Level 2.9 g/dL (3.5-5.1); Alkaline Phosphatase 46 U/L (38-126); Anion Gap 7.99999 mmol/L (8-16); Aspartate Amino Transferase 46 U/L (14-36); Bilirubin,Total 0.3 mg/dL (0.2-1.3); Blood Urea Nitrogen 51 mg/dL (7-17); CRP 8.6 mg/dL (<1.0); Calcium 8.2 mg/dL (8.4-10.2); Carbon Dioxide > 40 mmol/L (22-30); Chloride 95 mmol/L (98-107); Estimated CRCL calculation 35 ml/min; Estimated Glomerular Filt Rate 36; Glucose 104 mg/dL (65-105); Lactate Dehydrogenase 715 U/L (313-618); Potassium 3.5 mmol/L (3.4-5.0); Sodium 143 mmol/L (137-145)
--- NOTE | 2020-06-29 08:59 | WPDGICN ---
Assessment and Plan Assessment and plan (1) Occult blood in stools: Code(s): R19.5 - Other fecal abnormalities Status: Acute Assessment and Plan: Occult blood in stools described in notes. Plan is to repeat stool Hemoccult is this is not evident in the laboratory test. Continue monitor for signs of blood loss. Currently hemoglobin stable. No plan for immediate investigation given her active COVID status but she can be considered in the future if necessary. (2) Chronic anemia: Code(s): D64.9 - Anemia, unspecified Status: Chronic Assessment and Plan: Patient appears to have a chronic anemia. Current hemoglobin of 9 is similar to recent admission and recent laboratory testing. Currently felt to have normochromic normocytic indices. Will continue to follow hemoglobin closely. Stress gastritis or ulceration is likely given her comorbid diseases in prophylactic H2 blockers are advised. (3) CHF (congestive heart failure): Qualifiers: Heart failure type: diastolic Heart failure chronicity: acute on chronic Qualified Code(s): I50.33 - Acute on chronic diastolic (congestive) heart failure Code(s): I50.9 - Heart failure, unspecified Status: Acute (4) Diabetes mellitus: Code(s): E11.9 - Type 2 diabetes mellitus without complications Status: Acute (5) COPD (chronic obstructive pulmonary disease): Qualifiers: COPD type: unspecified COPD Qualified Code(s): J44.9 - Chronic obstructive pulmonary disease, unspecified Code(s): J44.9 - Chronic obstructive pulmonary disease, unspecified Status: Chronic (6) COVID-19: Code(s): U07.1 - COVID-19 Status: Acute GI Consult Note Consult date/time: 06/29/20 08:59 HPI: Chandni Vicente is a 80 year old female Seen in evaluation at the request of the hospitalist service. Because of occult blood in stool. Patient has history of COPD congestive heart failure atherosclerotic heart disease for which she is on Plavix and bright Lantus. She recently was discharged from the hospital 5 days ago after a non ST elevated VA. She became progressively short of breath and weak. Prompting her return to the hospital currently in the IMU. COVID testing was performed in she is found to be COVID positive at this time with pneumonia. No obvious bleeding has been described. There is 1 note that suggest she may have had darkish stools. Hemoglobin has remained stable this admission and last period with mild anemia reported. Patient denies abdominal pain. Review of Systems Review of Systems: All systems reviewed & are unremarkable except as noted in HPI and below PMFSH Past Medical History Medical History Anemia Anxiety Chronic kidney disease, stage 3 Baseline creatinine is between 1.3 and 1.50. Chronic obstructive pulmonary disease Chronic pain Chronic respiratory failure with hypoxia Congestive heart failure Echocardiogram on 06/07/2020 showed grade 2 diastolic dysfunction, ejection fraction of 55 to 60%, moderate aortic stenosis, and moderate pulmonary hypertension without wall motion abnormalities. Coronary artery disease Status post angioplasty status stent to the mid LAD on 06/13/2020. Depression Fibromyalgia Gastroesophageal reflux disease Hyperlipidemia Hypertension Insulin dependent type 2 diabetes mellitus Complicated by diabetic peripheral neuropathy. 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
[2020-06-29] MEDS: ALBUTEROL SULFATE (*SP) AEROSOL 1 PUFF 4 PUFF INHALATION ×4 (09:02→21:09)
[2020-06-29] MEDS: LIDOCAINE 5% PATCH 1 PATCH TRANSDERM (09:20)
--- NOTE | 2020-06-29 09:33 | P.PNIM_ITS ---
Progress Note: A&P Assessment and Plan (1) COVID-19: Code(s): U07.1 - COVID-19 Status: Acute Assessment and Plan: * continue dexamethasone 6 mg IV daily * 06/29 initiate rim does severe 200 mg IV day 1 then 100 mg IV daily for at least 5 days total * monitor inflammatory markers * monitor clinical response (2) Elevated troponin: Code(s): R77.8 - Other specified abnormalities of plasma proteins Status: Acute Assessment and Plan: * likely due to chronic kidney disease and recent myocardial infarction * no current acute coronary syndrome (3) Chronic obstructive pulmonary disease: Qualifiers: COPD type: unspecified COPD Qualified Code(s): J44.9 - Chronic obstructive pulmonary disease, unspecified Code(s): J44.9 - Chronic obstructive pulmonary disease, unspecified Status: Acute Assessment and Plan: * continue home oxygen and titrate as necessary * continue steroid -LABA inhaler baseline and p.r.n. 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 insulin Status: Acute Assessment and Plan: * continue basal and sliding scale insulin (5) Chronic respiratory failure with hypoxia: Code(s): J96.11 - Chronic respiratory failure with hypoxia Status: Acute Assessment and Plan: * continue home oxygen and needed maintain saturations 90% or above (6) Chest wall pain: Code(s): R07.89 - Other chest pain Status: Acute Assessment and Plan: * analgesics as needed (7) Occult blood in stools: Code(s): R19.5 - Other fecal abnormalities Status: Acute Assessment and Plan: * no obvious signs of bleeding at this point * GI consultation appreciated * continue to monitor for signs or symptoms of bleeding (8) CAD (coronary artery disease): Qualifiers: Coronary Disease-Associated Artery/Lesion type: [place] artery [place] vs. transplanted heart: [place] heart Associated angina: without angina Qualified Code(s): I25.10 - Atherosclerotic heart disease of [place] coronary artery without angina pectoris Code(s): I25.10 - Atherosclerotic heart disease of [place] coronary artery without angina pectoris Status: Acute Assessment and Plan: * recent myocardial infarction and coronary stenting * no current angina pectoris Subjective Date/time seen: 06/29/20 09:33 Interval history: 06/29: SOB with minimal exertion. Dry cough. Chills. Diarrhea. Left chest hurting. Mild to moderate. Worse with pressure. Not exertional. Some loose stool. No loss of taste. No n/v. Review of Systems Review of Systems: All systems reviewed & are unremarkable except as noted in HPI and below Exam Narrative: Exam Narrative: HEENT: EOMI, PERRL, sclerae nonicteric, pharyngeal mucosa pink and intact NECK: No JVD, adenopathy, or thyromegaly CHEST: Diffuse rhonchi with scattered exp wheezes, mildly tachypneic HEART: NL S1/S2, regular, no murmur ABDOMEN: BS+, soft, nontender, no mass, no bruits EXTREMITIES: No cyanosis, edema, or clubbing NEUROLOGIC: CN intact and symmetric to inspection. MUSCULOSKELETAL: Tone and strength symmetric. Tender left precordial chest wall. PSYCH: Alert. Oriented to person, place, and time. Objective Data Vital Signs Vital Signs: Vital Signs - 24 hr 06/28/20 11:02 06/28/20 11:21
--- NOTE | 2020-06-29 09:33 | PM.IMPN ---
Progress Note: A&P Assessment and Plan (1) COVID-19: Code(s): U07.1 - COVID-19 Status: Acute Assessment and Plan: continue dexamethasone 6 mg IV daily 06/29 initiate rim does severe 200 mg IV day 1 then 100 mg IV daily for at least 5 days total monitor inflammatory markers monitor clinical response (2) Elevated troponin: Code(s): R77.8 - Other specified abnormalities of plasma proteins Status: Acute Assessment and Plan: likely due to chronic kidney disease and recent myocardial infarction no current acute coronary syndrome (3) Chronic obstructive pulmonary disease: Qualifiers: COPD type: unspecified COPD Qualified Code(s): J44.9 - Chronic obstructive pulmonary disease, unspecified Code(s): J44.9 - Chronic obstructive pulmonary disease, unspecified Status: Acute Assessment and Plan: continue home oxygen and titrate as necessary continue steroid -LABA inhaler baseline and p.r.n. 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 Status: Acute Assessment and Plan: continue basal and sliding scale insulin (5) Chronic respiratory failure with hypoxia: Code(s): J96.11 - Chronic respiratory failure with hypoxia Status: Acute Assessment and Plan: continue home oxygen and needed maintain saturations 90% or above (6) Chest wall pain: Code(s): R07.89 - Other chest pain Status: Acute Assessment and Plan: analgesics as needed (7) Occult blood in stools: Code(s): R19.5 - Other fecal abnormalities Status: Acute Assessment and Plan: no obvious signs of bleeding at this point GI consultation appreciated continue to monitor for signs or symptoms of bleeding (8) CAD (coronary artery disease): Qualifiers: Coronary Disease-Associated Artery/Lesion type: [place] artery [place] vs. transplanted heart: [place] heart Associated angina: without angina Qualified Code(s): I25.10 - Atherosclerotic heart disease of [place] coronary artery without angina pectoris Code(s): I25.10 - Atherosclerotic heart disease of [place] coronary artery without angina pectoris Status: Acute Assessment and Plan: recent myocardial infarction and coronary stenting no current angina pectoris Subjective Date/time seen: 06/29/20 09:33 Interval history: 06/29: SOB with minimal exertion. Dry cough. Chills. Diarrhea. Left chest hurting. Mild to moderate. Worse with pressure. Not exertional. Some loose stool. No loss of taste. No n/v. Review of Systems Review of Systems: All systems reviewed & are unremarkable except as noted in HPI and below Exam Narrative: Exam Narrative: HEENT: EOMI, PERRL, sclerae nonicteric, pharyngeal mucosa pink and intact NECK: No JVD, adenopathy, or thyromegaly CHEST: Diffuse rhonchi with scattered exp wheezes, mildly tachypneic HEART: NL S1/S2, regular, no murmur ABDOMEN: BS+, soft, nontender, no mass, no bruits EXTREMITIES: No cyanosis, edema, or clubbing NEUROLOGIC: CN intact and symmetric to inspection. MUSCULOSKELETAL: Tone and strength symmetric. Tender left precordial chest wall. PSYCH: Alert. Oriented to person, place, and time. Objective Data Vital Signs Vital Signs: Vital Signs - 24 hr 06/28/20 11:02 06/28/20 11:21 06/28/20 11:30 Temperature 100.7 F H Pulse Rate 84 114 H 88 Respiratory Rate 14 17 20 Blood Pressure 169/75 H Pulse Oximetry 93 90 90 06/28/20 11:45 06/28/20 12:15 06/28/20 12:17 Temperature Pulse Rate 74 66 71 Respiratory Rate 20 15 20 Blood Pressure 163/69 H Pulse Oximetry 94 96 96 06/28/20 12:36 06/28/20 12:45 06/28/20 13:00 Temperature Pulse Rate 87 70 62 Respiratory Rate 22 H 22 H 24 H Blood Pressure Pulse Oximetry 93 90 98 06/28/20 13:02 10
[2020-06-29] MEDS: FENOFIBRATE NANOCRYSTALLIZED 145 MG TABLET PO (10:12)
[2020-06-29] MEDS: CLOPIDOGREL BISULFATE 75 MG TABLET PO (10:12)
[2020-06-29] MEDS: PREGABALIN (*CRX) 50 MG CAPSULE 200 MG PO ×2 (10:12→18:02)
[2020-06-29] MEDS: amLODIPine BESYLATE 5 MG TABLET PO (10:13)
[2020-06-29] MEDS: hydrALAZINE HCL 25 MG TABLET PO ×2 (10:13→18:01)
[2020-06-29] MEDS: PANTOPRAZOLE 40 MG TABLET PO (10:13)
[2020-06-29 12:04] LABS: Glucose Point of Care 83 (65-105)
[2020-06-29] MEDS: INSULIN GLARGINE (*BKC) 100 UNITS/ML 10 UNITS SUB-Q (12:26)
[2020-06-29] MEDS: ISOSORBIDE MONONITRATE 30 MG TAB.ER.24H PO (12:26)
[2020-06-29] MEDS: calcitrioL 0.25 MCG CAPSULE PO (12:27)
[2020-06-29] MEDS: MAGNESIUM OXIDE 400 MG TABLET PO (12:27)
[2020-06-29] MEDS: ATORVASTATIN 40 MG TABLET 80 MG PO (12:28)
[2020-06-29] MEDS: FERROUS SULFATE 324 MG TABLET PO ×2 (12:28→18:01)
[2020-06-29] MEDS: TORSEMIDE 20 MG TABLET PO (12:28)
[2020-06-29] MEDS: DEXAMETHASONE SOD PHOS INJ 4 MG/ML VIAL 6 MG IV PUSH (12:28)
[2020-06-29 14:16] LABS: Glucose Point of Care 175 (65-105)
[2020-06-29] MEDS: REMDESIVIR 200 MG/NS 250 ML 200 MG/250 ML BAG 250 MG IVPB (17:48)
[2020-06-29 18:01] LABS: Hematocrit 32.1 % (37.0-47.0); Hemoglobin 9.6 g/dL (12.0-15.0)
[2020-06-29] MEDS: INSULIN ASPART (*BKC) 100 UNITS/ML SUB-Q ×2 (18:02→21:38)
[2020-06-29 18:49] LABS: Glucose Point of Care 205 (65-105)
[2020-06-29] MEDS: CENTRAL LINE FLUSH 10 ML IV PUSH ×2 (20:55→20:57)
[2020-06-29 21:06] LABS: Glucose Point of Care 263 (65-105)
[2020-06-30] VITALS (16 sets, daily range): BP systolic 104–158; BP diastolic 45–77; PULSE 43–86; RESP 16–25; TEMP 36.2–37.2; O2SAT 95–100
[2020-06-30] MEDS: ACETAMINOPHEN 325 MG TABLET 650 MG PO ×4 (00:23→17:23)
[2020-06-30] MEDS: TIZANIDINE HCL 4 MG TABLET PO ×3 (00:25→20:41)
--- NOTE | 2020-06-30 01:03 | PC.NURSE ---
Daylight Savings Time For Daylight Savings Time Ending in the Fall - Clocks are moved back. For Daylight Savings Time Beginning in the Spring - Clocks are moved ahead. For [facility], the time of change occurs at 0200 hrs. Time is taken from the server developer. This entry on the patient's chart recognizes the change in time reflected during documentation. Example: 2 entries for vital signs may be charted for 0200 hrs.
[2020-06-30 04:58] LABS: Hematocrit 26.9 % (37.0-47.0); Hemoglobin 8.1 g/dL (12.0-15.0); Immature Granulocyte Absolute 0.03 K/mm3 (0.00-0.031); Immature Granulocyte Percent A 1.3 % (0-0.5); Lymphocytes Absolute Auto 0.28 K/mm3 (0.9-3.2); Lymphocytes Percent Auto 12.6 % (18.3-44.2); Mean Corpuscular HGB Conc 30.1 g/dl (32-36); Mean Corpuscular Hemoglobin 28.8 pg (26-34); Mean Corpuscular Volume 95.7 fl (80-100); Mean Platelet Volume 11.9 fl (7.4-10.4); Monocytes Absolute Auto 0.2 K/mm3 (0.1-0.6); Monocytes Percent Auto 10.3 % (2.6-8.5); Neutrophils Absolute Auto 1.7 K/mm3 (1.3-6.7); Neutrophils Percent Auto 75.8 % (45.5-73.1); Platelet Count Result 144 k/mm3 (150-375); Red Blood Count 2.81 M/mm3 (4.2-5.4); White Blood Count 2.2 K/mm3 (4.5-10.0)
[2020-06-30 05:11] LABS: D Dimer 0.91 ug/mL (<0.48)
[2020-06-30 05:22] LABS: Alanine Aminotransferase 18 U/L (4-35); Albumin Level 2.7 g/dL (3.5-5.1); Alkaline Phosphatase 41 U/L (38-126); Anion Gap 5.99999 mmol/L (8-16); Aspartate Amino Transferase 42 U/L (14-36); Bilirubin,Total 0.3 mg/dL (0.2-1.3); Blood Urea Nitrogen 52 mg/dL (7-17); CRP 8.9 mg/dL (<1.0); Calcium 7.8 mg/dL (8.4-10.2); Carbon Dioxide > 40 mmol/L (22-30); Chloride 93 mmol/L (98-107); Estimated CRCL calculation 35 ml/min; Estimated Glomerular Filt Rate 36; Glucose 124 mg/dL (65-105); Lactate Dehydrogenase 687 U/L (313-618); Potassium 3.5 mmol/L (3.4-5.0); Sodium 139 mmol/L (137-145)
[2020-06-30 07:58] LABS: Glucose Point of Care 93 (65-105)
[2020-06-30] MEDS: CENTRAL LINE FLUSH 10 ML IV PUSH ×3 (09:07→20:41)
[2020-06-30] MEDS: LIDOCAINE 5% PATCH 1 PATCH TRANSDERM (09:07)
[2020-06-30] MEDS: EUCERIN CREAM 120 GM JAR 1 APPLIC TOPICAL (09:08)
[2020-06-30] MEDS: INSULIN GLARGINE (*BKC) 100 UNITS/ML 10 UNITS SUB-Q (09:08)
[2020-06-30] MEDS: TORSEMIDE 20 MG TABLET PO (09:11)
[2020-06-30] MEDS: ISOSORBIDE MONONITRATE 30 MG TAB.ER.24H PO (09:11)
[2020-06-30] MEDS: PREGABALIN (*CRX) 50 MG CAPSULE 200 MG PO ×2 (09:11→17:39)
[2020-06-30] MEDS: CLOPIDOGREL BISULFATE 75 MG TABLET PO (09:11)
[2020-06-30] MEDS: PANTOPRAZOLE 40 MG TABLET PO (09:12)
[2020-06-30] MEDS: ALBUTEROL SULFATE (*SP) AEROSOL 1 PUFF 4 PUFF INHALATION ×4 (09:31→20:55)
--- NOTE | 2020-06-30 09:39 | WPDGIPROGNO ---
Progress Note: A&P Additional Plan Patient remains short of breath in the ICU. On isolation. No obvious GI bleeding evident. Physical exam reveals abdomen to be soft and nontender. Lungs with significant rhonchi. Impression 1. COVID infection. Now on pneumonia. Treated and followed in the ICU. 2. Anemia. Review of labs reveals this to be chronic. Hemoglobin stable at her baseline. 3. Occult blood negative. No obvious signs of active bleeding. No bleeding reported by nursing staff. 3. COPD. 4. Diabetes mellitus. Five. Atherosclerotic heart disease. Status post recent non ST elevated PA. Plan per GI services is observation. Hemoglobin is at her baseline should be monitored. No evidence for active blood loss at this time. Continue monitor for signs and symptoms of bleeding. Subjective Date/time seen: 06/30/20 09:39 Objective Data Vital Signs Vital Signs: Vital Signs - 24 hr 06/29/20 12:00 06/29/20 14:00 06/29/20 16:00 Temperature 99.4 F 99.9 F H Pulse Rate 81 78 71 Respiratory Rate 20 20 Blood Pressure 155/58 H 120/74 Pulse Oximetry 97 94 06/29/20 18:00 06/29/20 20:00 06/29/20 21:10 Temperature 99.9 F H Pulse Rate 86 64 66 Respiratory Rate 16 17 Blood Pressure 97/49 L Pulse Oximetry 100 99 06/29/20 22:00 06/30/20 00:00 06/30/20 02:00 Temperature 97.6 F Pulse Rate 65 57 L 49 L Respiratory Rate 25 H Blood Pressure 104/45 L Pulse Oximetry 95 06/30/20 04:00 06/30/20 06:00 06/30/20 07:53 Temperature 97.2 F L 98 F Pulse Rate 43 L 57 L 52 L Respiratory Rate 16 20 Blood Pressure 104/48 L 125/77 Pulse Oximetry 100 99 Intake/Output Intake/Output: Intake & Output 06/27/20 06/28/20 06/29/20 06/30/20 23:59 23:59 23:59 22:59 Intake Total 500 1860 470 Output Total 1350 1200 150 Balance -850 660 320 Meds/Results Medications: Active Medications Generic Name Dose Route Start Last Admin Trade Name Freq PRN Reason Stop Dose Admin Acetaminophen 650 mg 06/28/20 14:30 06/30/20 06:14 Acetaminophen 325 Mg Tablet PO 650 mg Q4H PRN Administration Mild Pain (1-3) Albuterol 4 puff 06/28/20 16:00 06/30/20 09:31 Albuterol Sulfate (*Sp) Aerosol 1 Puff INHALATION 4 puff QIDRT BEL Administration Albuterol 2 puff 06/28/20 23:05 Albuterol Sulfate (*Sp) Aerosol 1 Puff INHALATION Q4-6H PRN Shortness Of Breath Amlodipine Besylate 5 mg 06/29/20 09:00 06/29/20 10:13 Amlodipine Besylate 5 Mg Tablet PO 5 mg DAILY BEL Administration Aspirin 81 mg 06/29/20 09:00 Aspirin 81 Mg Enteric Tablet PO QAM BEL Atorvastatin Calcium 80 mg 06/29/20 09:00 06/29/20 12:28 Atorvastatin 40 Mg Tablet PO 80 mg DAILY BEL Administration Budesonide/Formoterol Fumarate 2 puff 06/29/20 08:00 06/30/20 09:32 Budesonide/Form 160-4.5 Mcg (*Sp) INHALATION 2 puff Q12HRT BEL Administration Calcitriol 0.25 mcg 06/29/20 09:00 06/29/20 12:27 Calcitriol 0.25 Mcg Capsule PO 0.25 mcg DAILY BEL Administration Clopidogrel Bisulfate 75 mg 06/29/20 09:00 06/30/20 09:11 Clopidogrel Bisulfate 75 Mg Tablet PO 75 mg QAM BEL Administration Dexamethasone Sodium Phosphate 6 mg 06/29/20 09:00 06/29/20 12:28 Dexamethasone Sod Phos Inj 4 Mg/Ml Vial IV PUSH 07/08/20 09:01 6 mg DAILY BEL Administration Dextrose 12.5 gm 06/28/20 23:04 Dextrose 50% 25 Gm/50 Ml Syringe IV PUSH PRN PRN Hypoglycemia Protocol Fenofibrate 145 mg 06/29/20 09:00 06/29/20 10:12 Fenofibrate Nanocrystallized 145 Mg Tablet PO 145 mg DAILY BEL Administration Ferrous Sulfate 324 mg 06/29/20 08:00 06/29/20 18:01 Ferrous Sulfate 324 Mg Tablet PO 324 mg BIDWM BEL Administration Glucagon 1 mg 06/28/20 23:04 Glucagon For Inj 1 Mg Vial IM PRN PRN Hypoglycemia Protocol Glucose 15 gm 06/28/20 23:04 Glucose Oral Gel 15 Gm Of Glucse In 37.5 Gm Tube PO PRN PRN
--- NOTE | 2020-06-30 09:41 | PM.PNCARD ---
Progress Note: A&P Assessment and Plan (1) Elevated troponin: Code(s): R77.8 - Other specified abnormalities of plasma proteins Status: Acute Assessment and Plan: she has chronic slight elevation of troponin, which is slightly better than her last admission, she had non ST elevation myocardial infarction few weeks ago at that time she had angioplasty stent placement to the LAD with good results, but she continued to have slight elevation of troponin in view of renal failure, and recent non STEMI (2) COVID-19: Code(s): U07.1 - COVID-19 Status: Acute Assessment and Plan: currently in ICU on isolation (3) Insulin dependent type 2 diabetes mellitus: Code(s): E11.9 - Type 2 diabetes mellitus without complications; 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 Status: Acute (4) Bradycardia: Code(s): R00.1 - Bradycardia, unspecified Status: Acute Assessment and Plan: she has bradycardia with heart rate response to exercise and exertion, no AV block at this time there is no need for indication for pacemaker (5) Sleep apnea: Code(s): G47.30 - Sleep apnea, unspecified Status: Acute (6) COPD exacerbation: Code(s): J44.1 - Chronic obstructive pulmonary disease with (acute) exacerbation Status: Acute (7) Afib: Code(s): I48.91 - Unspecified atrial fibrillation Status: Acute Assessment and Plan: she has new onset atrial fibrillation, rate is well controlled, with occasional bradycardia, no anticoagulation at this time in view of history of GI bleed, she needs to stay on aspirin and Plavix Additional Plan Thank you for allowing me to participate in this patient's care, I will be following up with you. Please do not hesitate to call me for any other inquiry Subjective Date/time seen: 06/30/20 09:41 she feels slightly better today, no more awake and alert, no chest pain no shortness of breath she complained of back pain Exam Narrative: Exam Narrative: Awake alert oriented x3 not in acute distress Neck is supple no obvious JVD, no carotid bruit Chest: decreased air entry, bilateral basilar crackles Cardiovascular: irregularly irregular rhythm, 2/6 systolic murmur noted left sternal border Abdomen: Soft nontender bowel sounds positive Extremities: No edema has good pulses distally bilaterally Objective Data Vital Signs Vital Signs: Vital Signs - 24 hr 06/29/20 12:00 06/29/20 14:00 06/29/20 16:00 Temperature 37.4 C 37.7 C H Pulse Rate 81 78 71 Respiratory Rate 20 20 Blood Pressure 155/58 H 120/74 Pulse Oximetry 97 94 06/29/20 18:00 06/29/20 20:00 06/29/20 21:10 Temperature 37.7 C H Pulse Rate 86 64 66 Respiratory Rate 16 17 Blood Pressure 97/49 L Pulse Oximetry 100 99 06/29/20 22:00 06/30/20 00:00 06/30/20 02:00 Temperature 36.4 C Pulse Rate 65 57 L 49 L Respiratory Rate 25 H Blood Pressure 104/45 L Pulse Oximetry 95 06/30/20 04:00 06/30/20 06:00 06/30/20 07:53 Temperature 36.2 C L 36.6 C Pulse Rate 43 L 57 L 52 L Respiratory Rate 16 20 Blood Pressure 104/48 L 125/77 Pulse Oximetry 100 99 Intake/Output Intake/Output: Intake & Output 06/27/20 06/28/20 06/29/20 06/30/20 23:59 23:59 23:59 22:59 Intake Total 500 1860 470 Output Total 1350 1200 150 Balance -850 660 320 Meds/Results Medications: Active Medications Generic Name Dose Route Start Last Admin Trade Name Freq PRN Reason Stop Dose Admin Acetaminophen 650 mg 06/28/20 14:30 06/30/20 06:14 Acetaminophen 325 Mg Tablet PO 650 mg Q4H PRN Administration Mild Pain (1-3) Albuterol 4 puff 06/28/20 16:00 06/30/20 09:31 Albuterol Sulfate (*Sp) Aerosol 1 Puff INHALATION 4 puff QIDRT BEL Administration Albuterol 2 puff 06/28/20 23:05 Albuterol Sulfate (*Sp) Aerosol 1 Puff INHALATION Q4-6H PRN Shortness Of Breath Amlodipine Besylate 5 mg 06/29/20 09:00 06/29
[2020-06-30 10:33] LABS: IFOB Positive Control Positive; Immunochemical Fecal Occult Bl Negative (N)
[2020-06-30] MEDS: FENOFIBRATE NANOCRYSTALLIZED 145 MG TABLET PO (10:42)
[2020-06-30] MEDS: ASPIRIN 81 MG ENTERIC TABLET PO (10:43)
[2020-06-30] MEDS: DEXAMETHASONE SOD PHOS INJ 4 MG/ML VIAL 6 MG IV PUSH (10:43)
[2020-06-30] MEDS: ATORVASTATIN 40 MG TABLET 80 MG PO (10:43)
[2020-06-30] MEDS: MAGNESIUM OXIDE 400 MG TABLET PO (10:43)
[2020-06-30] MEDS: calcitrioL 0.25 MCG CAPSULE PO (10:43)
[2020-06-30] MEDS: FERROUS SULFATE 324 MG TABLET PO ×2 (10:43→17:23)
[2020-06-30] MEDS: hydrALAZINE HCL 25 MG TABLET PO ×2 (10:44→17:23)
[2020-06-30] MEDS: amLODIPine BESYLATE 5 MG TABLET PO (10:44)
[2020-06-30] MEDS: REMDESIVIR 100 MG/NS 250 ML 100 MG/250 ML BAG 250 MG IVPB (10:47)
[2020-06-30 12:25] LABS: Glucose Point of Care 132 (65-105)
--- NOTE | 2020-06-30 15:40 | P.PNIM_ITS ---
Progress Note: A&P Assessment and Plan (1) COVID-19: Code(s): U07.1 - COVID-19 Status: Acute Assessment and Plan: * continue dexamethasone 6 mg IV daily * 06/29 initiated Remdesivir 200 mg IV day 1 then 100 mg IV daily for at least 5 days total * Ferritin and LDH better but CRP and DDimer worse. monitor inflammatory markers * monitor clinical response. Increase activity. PT/OT (2) Elevated troponin: Code(s): R77.8 - Other specified abnormalities of plasma proteins Status: Acute Assessment and Plan: * likely due to chronic kidney disease and recent myocardial infarction * no current acute coronary syndrome (3) Chronic obstructive pulmonary disease: Qualifiers: COPD type: unspecified COPD Qualified Code(s): J44.9 - Chronic obstructive pulmonary disease, unspecified Code(s): J44.9 - Chronic obstructive pulmonary disease, unspecified Status: Acute Assessment and Plan: * continue home oxygen and titrate as necessary * continue steroid -LABA inhaler baseline and albuterol prn (4) Insulin dependent type 2 diabetes mellitus: Code(s): E11.9 - Type 2 diabetes mellitus without complications; Z79.4 - [facility] (current) use of insulin Status: Acute Assessment and Plan: * The patient's blood glucose was reviewed on 06/30 * Glucose reasonably well controlled * Continue AccuCheks covering with sliding scale. Hypoglycemia protocol available as needed. * Continue Lantus (5) Chronic respiratory failure with hypoxia: Code(s): J96.11 - Chronic respiratory failure with hypoxia Status: Acute Assessment and Plan: * Stable * continue home oxygen and as needed maintain saturations 90% or above (6) Chest wall pain: Code(s): R07.89 - Other chest pain Status: Acute Assessment and Plan: * analgesics as needed (7) Occult blood in stools: Code(s): R19.5 - Other fecal abnormalities Status: Acute Assessment and Plan: * Occult blood in stool as described but guaiac negative x 2 (05/30 and 06/30) * No obvious signs of bleeding at this point * GI consult apprecaited * continue to monitor for signs or symptoms of bleeding (8) CAD (coronary artery disease): Qualifiers: Associated angina: without angina Coronary Disease-Associated Artery/Lesion type: [place] artery [place] vs. transplanted heart: [place] heart Qualified Code(s): I25.10 - Atherosclerotic heart disease of [place] coronary artery without angina pectoris Code(s): I25.10 - Atherosclerotic heart disease of [place] coronary artery without angina pectoris Status: Acute Assessment and Plan: * recent myocardial infarction and coronary stenting 06/13/20 * no current angina pectoris. * Continue aspirin and Plavix. * No beta-rafa due to bradycardia. (9) Afib: Code(s): I48.91 - Unspecified atrial fibrillation Status: Acute Assessment and Plan: * Atrial fibrillation noted on telemetry. This is not been noted previously on old EKGs. * Check EKG. * Discussed with Cardiology. No plans for anticoagulation at this time. (10) Chronic kidney disease, stage 3: Qualifiers: Chronic kidney disease stage 3 subtype: unspecified whether 3a or 3b Qualified Code(s): N18.30 - Chronic kidney disease, stage 3 unspecified Code(s): N18.30 - Chronic kidney disease, stage 3 unspecified Status: Acute
--- NOTE | 2020-06-30 15:40 | PM.IMPN ---
Progress Note: A&P Assessment and Plan (1) COVID-19: Code(s): U07.1 - COVID-19 Status: Acute Assessment and Plan: continue dexamethasone 6 mg IV daily 06/29 initiated Remdesivir 200 mg IV day 1 then 100 mg IV daily for at least 5 days total Ferritin and LDH better but CRP and DDimer worse. monitor inflammatory markers monitor clinical response. Increase activity. PT/OT (2) Elevated troponin: Code(s): R77.8 - Other specified abnormalities of plasma proteins Status: Acute Assessment and Plan: likely due to chronic kidney disease and recent myocardial infarction no current acute coronary syndrome (3) Chronic obstructive pulmonary disease: Qualifiers: COPD type: unspecified COPD Qualified Code(s): J44.9 - Chronic obstructive pulmonary disease, unspecified Code(s): J44.9 - Chronic obstructive pulmonary disease, unspecified Status: Acute Assessment and Plan: continue home oxygen and titrate as necessary continue steroid -LABA inhaler baseline and albuterol prn (4) Insulin dependent type 2 diabetes mellitus: Code(s): E11.9 - Type 2 diabetes mellitus without complications; 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 Hypoglycemia protocol available as needed. Continue Lantus (5) Chronic respiratory failure with hypoxia: Code(s): J96.11 - Chronic respiratory failure with hypoxia Status: Acute Assessment and Plan: Stable continue home oxygen and as needed maintain saturations 90% or above (6) Chest wall pain: Code(s): R07.89 - Other chest pain Status: Acute Assessment and Plan: analgesics as needed (7) Occult blood in stools: Code(s): R19.5 - Other fecal abnormalities Status: Acute Assessment and Plan: Occult blood in stool as described but guaiac negative x 2 (05/30 and 06/30) No obvious signs of bleeding at this point GI consult apprecaited continue to monitor for signs or symptoms of bleeding (8) CAD (coronary artery disease): Qualifiers: Associated angina: without angina Coronary Disease-Associated Artery/Lesion type: [place] artery [place] vs. transplanted heart: [place] heart Qualified Code(s): I25.10 - Atherosclerotic heart disease of [place] coronary artery without angina pectoris Code(s): I25.10 - Atherosclerotic heart disease of [place] coronary artery without angina pectoris Status: Acute Assessment and Plan: recent myocardial infarction and coronary stenting 06/13/20 no current angina pectoris. Continue aspirin and Plavix. No beta-rafa due to bradycardia. (9) Afib: Code(s): I48.91 - Unspecified atrial fibrillation Status: Acute Assessment and Plan: Atrial fibrillation noted on telemetry. This is not been noted previously on old EKGs. Check EKG. Discussed with Cardiology. No plans for anticoagulation at this time. (10) Chronic kidney disease, stage 3: Qualifiers: Chronic kidney disease stage 3 subtype: unspecified whether 3a or 3b Qualified Code(s): N18.30 - Chronic kidney disease, stage 3 unspecified Code(s): N18.30 - Chronic kidney disease, stage 3 unspecified Status: Acute Assessment and Plan: Patient's creatinine was 1.5 on admission and has been stable at this level. Continue to monitor. (11) Anemia: Qualifiers: Anemia type: other cause Other causes of anemia: other cause, not classified Qualified Code(s): D64.89 - Other specified anemias Code(s): D64.9 - Anemia, unspecified Status: Acute Assessment and Plan: Patient with chronic anemia hemoglobin running mostly in the 8 ran
--- NOTE | 2020-06-30 16:27 | ECG_ITS ---
Measurements Intervals [place] Rate: 72 P: [place]: 0 QRS: -25 QRSD: 141 T: 136 QT: 435 QTc: 479 Interpretive Statements ATRIAL FIBRILLATION LEFT BUNDLE BRANCH BLOCK BASELINE ARTIFACT- II, III ABNORMAL ECG Electronically Signed On 07-01-2020 7:18:11 FRONT LINE LEADER by Rick Zapata D.O.
[2020-06-30] MEDS: INSULIN ASPART (*BKC) 100 UNITS/ML SUB-Q (17:23)
[2020-06-30 17:33] LABS: Glucose Point of Care 204 (65-105)
[2020-06-30 20:46] LABS: Glucose Point of Care 218 (65-105)
[2020-07-01] VITALS (13 sets, daily range): BP systolic 103–157; BP diastolic 51–91; PULSE 45–98; RESP 19–25; TEMP 36.6–37.1; O2SAT 94–100
[2020-07-01] MEDS: ACETAMINOPHEN 325 MG TABLET 650 MG PO ×4 (00:22→21:47)
[2020-07-01] MEDS: TIZANIDINE HCL 4 MG TABLET PO ×3 (03:37→21:37)
[2020-07-01 04:44] LABS: Hematocrit 27.2 % (37.0-47.0); Hemoglobin 8.4 g/dL (12.0-15.0); Immature Granulocyte Absolute 0.03 K/mm3 (0.00-0.031); Immature Granulocyte Percent A 1.1 % (0-0.5); Lymphocytes Absolute Auto 0.37 K/mm3 (0.9-3.2); Lymphocytes Percent Auto 13.2 % (18.3-44.2); Mean Corpuscular HGB Conc 30.9 g/dl (32-36); Mean Corpuscular Volume 93.8 fl (80-100); Mean Platelet Volume 12.3 fl (7.4-10.4); Monocytes Absolute Auto 0.3 K/mm3 (0.1-0.6); Monocytes Percent Auto 9.6 % (2.6-8.5); Neutrophils Absolute Auto 2.1 K/mm3 (1.3-6.7); Neutrophils Percent Auto 76.1 % (45.5-73.1); Platelet Count Result 169 k/mm3 (150-375); White Blood Count 2.8 K/mm3 (4.5-10.0)
[2020-07-01 04:58] LABS: Alanine Aminotransferase 18 U/L (4-35); Albumin Level 2.9 g/dL (3.5-5.1); Alkaline Phosphatase 48 U/L (38-126); Anion Gap 7.99999 mmol/L (8-16); Aspartate Amino Transferase 43 U/L (14-36); Bilirubin,Total 0.2 mg/dL (0.2-1.3); Blood Urea Nitrogen 56 mg/dL (7-17); Calcium 7.9 mg/dL (8.4-10.2); Carbon Dioxide > 40 mmol/L (22-30); Chloride 91 mmol/L (98-107); Estimated CRCL calculation 31 ml/min; Estimated Glomerular Filt Rate 31; Glucose 121 mg/dL (65-105); Potassium 3.7 mmol/L (3.4-5.0); Sodium 139 mmol/L (137-145)
[2020-07-01 05:04] LABS: D Dimer 1.15 ug/mL (<0.48)
[2020-07-01 05:11] LABS: CRP 6.2 mg/dL (<1.0); Lactate Dehydrogenase 738 U/L (313-618)
[2020-07-01] MEDS: CENTRAL LINE FLUSH 10 ML IV PUSH ×4 (06:47→21:37)
[2020-07-01 06:51] LABS: Creatine Kinase 25 U/L (30-135)
[2020-07-01] MEDS: ALBUTEROL SULFATE (*SP) AEROSOL 1 PUFF 4 PUFF INHALATION ×4 (07:38→21:15)
[2020-07-01] MEDS: amLODIPine BESYLATE 5 MG TABLET PO (08:18)
[2020-07-01] MEDS: FENOFIBRATE NANOCRYSTALLIZED 145 MG TABLET PO (08:19)
[2020-07-01] MEDS: CLOPIDOGREL BISULFATE 75 MG TABLET PO (08:19)
[2020-07-01] MEDS: PANTOPRAZOLE 40 MG TABLET PO (08:19)
[2020-07-01] MEDS: hydrALAZINE HCL 25 MG TABLET PO ×2 (08:19→16:57)
[2020-07-01] MEDS: ATORVASTATIN 40 MG TABLET 80 MG PO (08:19)
[2020-07-01] MEDS: FERROUS SULFATE 324 MG TABLET PO ×2 (08:19→16:55)
[2020-07-01] MEDS: DEXAMETHASONE SOD PHOS INJ 4 MG/ML VIAL 6 MG IV PUSH (08:19)
[2020-07-01] MEDS: calcitrioL 0.25 MCG CAPSULE PO (08:20)
[2020-07-01] MEDS: INSULIN GLARGINE (*BKC) 100 UNITS/ML 10 UNITS SUB-Q (08:20)
[2020-07-01] MEDS: ASPIRIN 81 MG ENTERIC TABLET PO (08:20)
[2020-07-01] MEDS: ISOSORBIDE MONONITRATE 30 MG TAB.ER.24H PO (08:20)
[2020-07-01] MEDS: MAGNESIUM OXIDE 400 MG TABLET PO (08:20)
[2020-07-01] MEDS: TORSEMIDE 20 MG TABLET PO (08:21)
[2020-07-01 08:31] LABS: Glucose Point of Care 102 (65-105)
[2020-07-01] MEDS: LIDOCAINE 5% PATCH 1 PATCH TRANSDERM (10:27)
[2020-07-01] MEDS: EUCERIN CREAM 120 GM JAR 1 APPLIC TOPICAL (10:27)
[2020-07-01] MEDS: PREGABALIN (*CRX) 50 MG CAPSULE 200 MG PO ×2 (10:27→18:08)
[2020-07-01] MEDS: REMDESIVIR 100 MG/NS 250 ML 100 MG/250 ML BAG 250 MG IVPB (10:28)
--- NOTE | 2020-07-01 10:41 | WPDGIPROGNO ---
Progress Note: A&P Additional Plan Patient remains With shortness of breath.. Physical exam unchanged. Labs reveal stool occult blood negative. Hemoglobin 8.4 stable. Impression 1 1. Chronic anemia. Stools Hemoccult negative. No obvious bleeding identified. Continue to monitor hemoglobin and follow closely. 2. COVID positive pneumonia. Continued therapy per Pulmonary Service. Three multiple other problems including congestive heart failure, COPD, elevated troponins. Status post recent stent on anticoagulation. Be cautious with restarting anticoagulation given her significant anemia Subjective Date/time seen: 07/01/20 10:41 Objective Data Vital Signs Vital Signs: Vital Signs - 24 hr 06/30/20 12:00 06/30/20 14:00 06/30/20 16:00 Temperature 98.8 F 98 F Pulse Rate 55 L 65 63 Respiratory Rate 20 20 Blood Pressure 105/52 L 119/55 L Pulse Oximetry 97 96 06/30/20 18:00 06/30/20 20:00 06/30/20 20:58 Temperature 98.9 F Pulse Rate 84 67 70 Respiratory Rate 17 24 H Blood Pressure 114/58 L Pulse Oximetry 98 97 06/30/20 22:00 07/01/20 00:00 07/01/20 02:00 Temperature Pulse Rate 56 L 54 L 52 L Respiratory Rate 25 H Blood Pressure 109/51 L Pulse Oximetry 100 07/01/20 04:00 07/01/20 06:00 07/01/20 07:40 Temperature Pulse Rate 74 45 L Respiratory Rate 22 H Blood Pressure 136/65 Pulse Oximetry 95 98 07/01/20 08:00 Temperature 98.1 F Pulse Rate 60 Respiratory Rate 22 H Blood Pressure 138/64 Pulse Oximetry 95 Intake/Output Intake/Output: Intake & Output 06/29/20 06/30/20 06/30/20 07/01/20 00:59 00:59 23:59 23:59 Intake Total 500 Output Total 800 Balance -300 Meds/Results Medications: Active Medications Generic Name Dose Route Start Last Admin Trade Name Freq PRN Reason Stop Dose Admin Acetaminophen 650 mg 06/28/20 14:30 07/01/20 00:22 Acetaminophen 325 Mg Tablet PO 650 mg Q4H PRN Administration Mild Pain (1-3) Albuterol 4 puff 06/28/20 16:00 07/01/20 07:38 Albuterol Sulfate (*Sp) Aerosol 1 Puff INHALATION 4 puff QIDRT BEL Administration Albuterol 2 puff 06/28/20 23:05 Albuterol Sulfate (*Sp) Aerosol 1 Puff INHALATION Q4-6H PRN Shortness Of Breath Amlodipine Besylate 5 mg 06/29/20 09:00 07/01/20 08:18 Amlodipine Besylate 5 Mg Tablet PO 5 mg DAILY BEL Administration Aspirin 81 mg 06/29/20 09:00 07/01/20 08:20 Aspirin 81 Mg Enteric Tablet PO 81 mg QAM BEL Administration Atorvastatin Calcium 80 mg 06/29/20 09:00 07/01/20 08:19 Atorvastatin 40 Mg Tablet PO 80 mg DAILY BEL Administration Budesonide/Formoterol Fumarate 2 puff 06/29/20 08:00 07/01/20 07:39 Budesonide/Form 160-4.5 Mcg (*Sp) INHALATION 2 puff Q12HRT BEL Administration Calcitriol 0.25 mcg 06/29/20 09:00 07/01/20 08:20 Calcitriol 0.25 Mcg Capsule PO 0.25 mcg DAILY BEL Administration Clopidogrel Bisulfate 75 mg 06/29/20 09:00 07/01/20 08:19 Clopidogrel Bisulfate 75 Mg Tablet PO 75 mg QAM BEL Administration Dexamethasone Sodium Phosphate 6 mg 06/29/20 09:00 07/01/20 08:19 Dexamethasone Sod Phos Inj 4 Mg/Ml Vial IV PUSH 07/08/20 09:01 6 mg DAILY BEL Administration Dextrose 12.5 gm 06/28/20 23:04 Dextrose 50% 25 Gm/50 Ml Syringe IV PUSH PRN PRN Hypoglycemia Protocol Fenofibrate 145 mg 06/29/20 09:00 07/01/20 08:19 Fenofibrate Nanocrystallized 145 Mg Tablet PO 145 mg DAILY BEL Administration Ferrous Sulfate 324 mg 06/29/20 08:00 07/01/20 08:19 Ferrous Sulfate 324 Mg Tablet PO 324 mg BIDWM BEL Administration Glucagon 1 mg 06/28/20 23:04 Glucagon For Inj 1 Mg Vial IM PRN PRN Hypoglycemia Protocol Glucose 15 gm 06/28/20 23:04 Glucose Oral Gel 15 Gm Of Glucse In 37.5 Gm Tube PO PRN PRN Hypoglycemia Protocol Hydralazine HCl 25 mg 06/29/20 08:00 07/01/20 08:19
[2020-07-01 12:34] LABS: Glucose Point of Care 176 (65-105)
--- NOTE | 2020-07-01 13:09 | PM.PNCARD ---
Progress Note: A&P Assessment and Plan (1) Elevated troponin: Code(s): R77.8 - Other specified abnormalities of plasma proteins Status: Acute Assessment and Plan: she has chronic slight elevation of troponin, which is slightly better than her last admission, she had non ST elevation myocardial infarction few weeks ago at that time she had angioplasty stent placement to the LAD with good results, but she continued to have slight elevation of troponin in view of renal failure, and recent non STEMI (2) COVID-19: Code(s): U07.1 - COVID-19 Status: Acute Assessment and Plan: currently in ICU on isolation (3) Insulin dependent type 2 diabetes mellitus: Code(s): E11.9 - Type 2 diabetes mellitus without complications; Z79.4 - intermediate manager (current) use of insulin Status: Acute (4) Bradycardia: Code(s): R00.1 - Bradycardia, unspecified Status: Acute Assessment and Plan: she has bradycardia with heart rate response to exercise and exertion, no AV block at this time there is no need for indication for pacemaker (5) Sleep apnea: Code(s): G47.30 - Sleep apnea, unspecified Status: Acute (6) COPD exacerbation: Code(s): J44.1 - Chronic obstructive pulmonary disease with (acute) exacerbation Status: Acute (7) Afib: Code(s): I48.91 - Unspecified atrial fibrillation Status: Acute Assessment and Plan: she has new onset atrial fibrillation, rate is well controlled, with occasional bradycardia, no anticoagulation at this time in view of history of GI bleed, she needs to stay on aspirin and Plavix Additional Plan she is okay to be transferred to telemetry Subjective Date/time seen: 07/01/20 13:09 she feels better today, today was up in a chair, shortness of breath is better no chest pain, but she has some occasional abdominal pain, and back pain Exam Narrative: Exam Narrative: Awake alert oriented x3 not in acute distress Neck is supple no obvious JVD, no carotid bruit Chest: decreased air entry, bilateral basilar crackles Cardiovascular: irregularly irregular rhythm, 2/6 systolic murmur noted left sternal border Abdomen: Soft nontender bowel sounds positive Extremities: No edema has good pulses distally bilaterally Objective Data Vital Signs Vital Signs: Vital Signs - 24 hr 06/30/20 14:00 06/30/20 16:00 06/30/20 18:00 Temperature 36.6 C Pulse Rate 65 63 84 Respiratory Rate 20 Blood Pressure 119/55 L Pulse Oximetry 96 06/30/20 20:00 06/30/20 20:58 06/30/20 22:00 Temperature 37.2 C Pulse Rate 67 70 56 L Respiratory Rate 17 24 H Blood Pressure 114/58 L Pulse Oximetry 98 97 07/01/20 00:00 07/01/20 02:00 07/01/20 04:00 Temperature Pulse Rate 54 L 52 L 74 Respiratory Rate 25 H 22 H Blood Pressure 109/51 L 136/65 Pulse Oximetry 100 95 07/01/20 06:00 07/01/20 07:40 07/01/20 08:00 Temperature 36.7 C Pulse Rate 45 L 62 Respiratory Rate 22 H Blood Pressure 138/64 Pulse Oximetry 98 97 07/01/20 10:00 07/01/20 12:00 Temperature 37.1 C Pulse Rate 58 L 98 Respiratory Rate 19 Blood Pressure 103/59 L Pulse Oximetry 94 Intake/Output Intake/Output: Intake & Output 06/29/20 06/30/20 06/30/20 07/01/20 00:59 00:59 23:59 23:59 Intake Total 1110 Output Total 1000 Balance 110 Meds/Results Medications: Active Medications Generic Name Dose Route Start Last Admin Trade Name Freq PRN Reason Stop Dose Admin Acetaminophen 650 mg 06/28/20 14:30 07/01/20 12:17 Acetaminophen 325 Mg Tablet PO 650 mg Q4H PRN Administration Mild Pain (1-3) Albuterol 4 puff 06/28/20 16:00 07/01/20 11:02 Albuterol Sulfate (*Sp) Aerosol 1 Puff INHALATION 4 puff QIDRT BEL Administration Albuterol 2 puff 06/28/20 23:05 Albuterol Sulfate (*Sp) Aerosol 1 Puff INHALATION Q4-6H PRN Shortness Of Breath Amlodipine Besylate 5 mg 06/29/20 09
--- NOTE | 2020-07-01 16:56 | P.PNIM_ITS ---
Progress Note: A&P Assessment and Plan (1) COVID-19: Code(s): U07.1 - COVID-19 Status: Acute Assessment and Plan: * continue dexamethasone 6 mg IV daily * 06/29 initiated Remdesivir 200 mg IV day 1 then 100 mg IV daily for at least 5 days total * Ferritin, DD and LDH up today but CRP better. monitor inflammatory markers * Leukopenia noted and slightly better today. Continue to follow * mild thrombocytopenia noted felt related to COVID; plt count normal today * monitor clinical response. Increase activity. Continue PT/OT (2) Elevated troponin: Code(s): R77.8 - Other specified abnormalities of plasma proteins Status: Acute Assessment and Plan: * likely due to chronic kidney disease and recent myocardial infarction * no current acute coronary syndrome (3) Chronic obstructive pulmonary disease: Qualifiers: COPD type: unspecified COPD Qualified Code(s): J44.9 - Chronic obstructive pulmonary disease, unspecified Code(s): J44.9 - Chronic obstructive pulmonary disease, unspecified Status: Acute Assessment and Plan: * continue home oxygen and titrate as necessary * continue steroid -LABA inhaler baseline and albuterol prn (4) Insulin dependent type 2 diabetes mellitus: Code(s): E11.9 - Type 2 diabetes mellitus without complications; Z79.4 - termite control representative (current) use of insulin Status: Acute Assessment and Plan: * The patient's blood glucose was reviewed on 07/01 * Glucose good control * Continue AccuCheks covering with sliding scale. Hypoglycemia protocol available as needed. * Continue Lantus (5) Chronic respiratory failure with hypoxia: Code(s): J96.11 - Chronic respiratory failure with hypoxia Status: Acute Assessment and Plan: * Stable * continue home oxygen at 3L NC and as needed maintain saturations 90% or above (6) Chest wall pain: Code(s): R07.89 - Other chest pain Status: Acute Assessment and Plan: * analgesics as needed (7) Occult blood in stools: Code(s): R19.5 - Other fecal abnormalities Status: Acute Assessment and Plan: * Occult blood in stool as described but guaiac negative x 2 (06/09/20 and 06/30/20) * No obvious signs of bleeding at this point * GI consult appreciated * continue to monitor for signs or symptoms of bleeding (8) CAD (coronary artery disease): Qualifiers: Associated angina: without angina Coronary Disease-Associated Artery/Lesion type: [place] artery [place] vs. transplanted heart: [place] heart Qualified Code(s): I25.10 - Atherosclerotic heart disease of [place] coronary artery without angina pectoris Code(s): I25.10 - Atherosclerotic heart disease of [place] coronary artery without angina pectoris Status: Acute Assessment and Plan: * recent myocardial infarction and coronary stenting 06/13/20 * no current angina pectoris. * Continue aspirin and Plavix. * No beta-rafa due to bradycardia. (9) Afib: Code(s): I48.91 - Unspecified atrial fibrillation Status: Acute Assessment and Plan: * Atrial fibrillation noted on telemetry and by EKG 06/30/20. This is not been noted previously on old EKGs. * Discussed with Cardiology. No plans for anticoagulation at this time. (10) Chronic kidney disease, stage 3: Qualifiers: Chronic kidney disease stage 3 subtype: unspecified whether 3a or 3b Qualified Code(s): N18
--- NOTE | 2020-07-01 16:56 | PM.IMPN ---
Progress Note: A&P Assessment and Plan (1) COVID-19: Code(s): U07.1 - COVID-19 Status: Acute Assessment and Plan: continue dexamethasone 6 mg IV daily 06/29 initiated Remdesivir 200 mg IV day 1 then 100 mg IV daily for at least 5 days total Ferritin, DD and LDH up today but CRP better. monitor inflammatory markers Leukopenia noted and slightly better today. Continue to follow mild thrombocytopenia noted felt related to COVID; plt count normal today monitor clinical response. Increase activity. Continue PT/OT (2) Elevated troponin: Code(s): R77.8 - Other specified abnormalities of plasma proteins Status: Acute Assessment and Plan: likely due to chronic kidney disease and recent myocardial infarction no current acute coronary syndrome (3) Chronic obstructive pulmonary disease: Qualifiers: COPD type: unspecified COPD Qualified Code(s): J44.9 - Chronic obstructive pulmonary disease, unspecified Code(s): J44.9 - Chronic obstructive pulmonary disease, unspecified Status: Acute Assessment and Plan: continue home oxygen and titrate as necessary continue steroid -LABA inhaler baseline and albuterol prn (4) Insulin dependent type 2 diabetes mellitus: Code(s): E11.9 - Type 2 diabetes mellitus without complications; Z79.4 - detention (current) use of insulin Status: Acute Assessment and Plan: The patient's blood glucose was reviewed on 07/01 Glucose good control Continue AccuCheks covering with sliding scale. Hypoglycemia protocol available as needed. Continue Lantus (5) Chronic respiratory failure with hypoxia: Code(s): J96.11 - Chronic respiratory failure with hypoxia Status: Acute Assessment and Plan: Stable continue home oxygen at 3L NC and as needed maintain saturations 90% or above (6) Chest wall pain: Code(s): R07.89 - Other chest pain Status: Acute Assessment and Plan: analgesics as needed (7) Occult blood in stools: Code(s): R19.5 - Other fecal abnormalities Status: Acute Assessment and Plan: Occult blood in stool as described but guaiac negative x 2 (06/09/20 and 06/30/20) No obvious signs of bleeding at this point GI consult appreciated continue to monitor for signs or symptoms of bleeding (8) CAD (coronary artery disease): Qualifiers: Associated angina: without angina Coronary Disease-Associated Artery/Lesion type: [place] artery [place] vs. transplanted heart: [place] heart Qualified Code(s): I25.10 - Atherosclerotic heart disease of [place] coronary artery without angina pectoris Code(s): I25.10 - Atherosclerotic heart disease of [place] coronary artery without angina pectoris Status: Acute Assessment and Plan: recent myocardial infarction and coronary stenting 06/13/20 no current angina pectoris. Continue aspirin and Plavix. No beta-rafa due to bradycardia. (9) Afib: Code(s): I48.91 - Unspecified atrial fibrillation Status: Acute Assessment and Plan: Atrial fibrillation noted on telemetry and by EKG 06/30/20. This is not been noted previously on old EKGs. Discussed with Cardiology. No plans for anticoagulation at this time. (10) Chronic kidney disease, stage 3: Qualifiers: Chronic kidney disease stage 3 subtype: unspecified whether 3a or 3b Qualified Code(s): N18.30 - Chronic kidney disease, stage 3 unspecified Code(s): N18.30 - Chronic kidney disease, stage 3 unspecified Status: Acute Assessment and Plan: Patient's creatinine was 1.5 on admission and has been stable at this level. Continue to monitor. (11) Anemia: Qualifiers: Anemia type: other cause Other causes of anemia: other cause, not classified Qualified Code(s): D64.89 - Other specified anemias Code(s
[2020-07-01 17:38] LABS: Glucose Point of Care 178 (65-105)
[2020-07-01] MEDS: ONDANSETRON INJ 4 MG/2 ML VIAL IV PUSH (18:21)
--- NOTE | 2020-07-01 18:44 | ADMGEN ---
This patient, Chandni Vicente, was admitted to med/surg 327. Patient/family oriented to hospital policies and general routines including ID bracelet, bed and alarms, visiting hours, pain management, procedures, bathroom and other care routines, personal items, smoking policy, room service/diet, and visiting hours. Information on how to activate the Rapid Response Team has been discussed. Patient/Family are encouraged to report perceived risks to care and to ask questions if they do not understand what they are told or what they should do.
--- NOTE | 2020-07-01 18:49 | PC.NURSE ---
This patient, Chandni Vicente, was transferred to [facility] on 07/01/20 at 1840 via bed. Personal belongings sent with patient. Report given to NU Donaldson. Appropriate documentation sent with patient.
[2020-07-01 22:05] LABS: Glucose Point of Care 226 (65-105)
[2020-07-02] VITALS (10 sets, daily range): BP systolic 122–137; BP diastolic 52–76; PULSE 51–89; RESP 16–20; TEMP 36.4–37; O2SAT 90–95
[2020-07-02] MEDS: ACETAMINOPHEN 325 MG TABLET 650 MG PO ×3 (03:43→21:03)
[2020-07-02] MEDS: CENTRAL LINE FLUSH 10 ML IV PUSH ×3 (06:26→20:36)
[2020-07-02 06:39] LABS: Hematocrit 28.4 % (37.0-47.0); Hemoglobin 8.6 g/dL (12.0-15.0); Immature Granulocyte Absolute 0.07 K/mm3 (0.00-0.031); Lymphocytes Absolute Auto 0.66 K/mm3 (0.9-3.2); Lymphocytes Percent Auto 19.2 % (18.3-44.2); Mean Corpuscular HGB Conc 30.3 g/dl (32-36); Mean Corpuscular Hemoglobin 28.7 pg (26-34); Mean Corpuscular Volume 94.7 fl (80-100); Monocytes Absolute Auto 0.4 K/mm3 (0.1-0.6); Monocytes Percent Auto 11.3 % (2.6-8.5); Neutrophils Absolute Auto 2.3 K/mm3 (1.3-6.7); Neutrophils Percent Auto 67.5 % (45.5-73.1); Platelet Count Result 179 k/mm3 (150-375); Red Cell Distribution Width 17.2 % (11.5-14.5); White Blood Count 3.4 K/mm3 (4.5-10.0)
[2020-07-02 06:54] LABS: Alanine Aminotransferase 18 U/L (4-35); Albumin Level 2.7 g/dL (3.5-5.1); Alkaline Phosphatase 47 U/L (38-126); Anion Gap 8.99999 mmol/L (8-16); Aspartate Amino Transferase 37 U/L (14-36); Bilirubin,Total 0.3 mg/dL (0.2-1.3); Blood Urea Nitrogen 62 mg/dL (7-17); CRP 3.6 mg/dL (<1.0); Calcium 8.1 mg/dL (8.4-10.2); Carbon Dioxide > 40 mmol/L (22-30); Chloride 92 mmol/L (98-107); Estimated CRCL calculation 31 ml/min; Estimated Glomerular Filt Rate 31; Glucose 92 mg/dL (65-105); Lactate Dehydrogenase 739 U/L (313-618); Potassium 3.6 mmol/L (3.4-5.0); Sodium 141 mmol/L (137-145)
[2020-07-02] MEDS: ALBUTEROL SULFATE (*SP) AEROSOL 1 PUFF 4 PUFF INHALATION ×4 (08:16→20:44)
[2020-07-02 08:52] LABS: Glucose Point of Care 78 (65-105)
[2020-07-02] MEDS: REMDESIVIR 100 MG/NS 250 ML 100 MG/250 ML BAG 250 MG IVPB (09:23)
[2020-07-02] MEDS: FENOFIBRATE NANOCRYSTALLIZED 145 MG TABLET PO (09:25)
[2020-07-02] MEDS: MAGNESIUM OXIDE 400 MG TABLET PO (09:25)
[2020-07-02] MEDS: ATORVASTATIN 40 MG TABLET 80 MG PO (09:25)
[2020-07-02] MEDS: CLOPIDOGREL BISULFATE 75 MG TABLET PO (09:25)
[2020-07-02] MEDS: ISOSORBIDE MONONITRATE 30 MG TAB.ER.24H PO (09:26)
[2020-07-02] MEDS: LIDOCAINE 5% PATCH 1 PATCH TRANSDERM (09:26)
[2020-07-02] MEDS: DEXAMETHASONE SOD PHOS INJ 4 MG/ML VIAL 6 MG IV PUSH (09:26)
[2020-07-02] MEDS: FERROUS SULFATE 324 MG TABLET PO ×2 (09:27→16:43)
[2020-07-02] MEDS: ASPIRIN 81 MG ENTERIC TABLET PO (09:27)
[2020-07-02] MEDS: TORSEMIDE 20 MG TABLET PO (09:27)
[2020-07-02] MEDS: amLODIPine BESYLATE 5 MG TABLET PO (09:27)
[2020-07-02] MEDS: hydrALAZINE HCL 25 MG TABLET PO ×2 (09:27→16:44)
[2020-07-02] MEDS: calcitrioL 0.25 MCG CAPSULE PO (09:27)
[2020-07-02] MEDS: PANTOPRAZOLE 40 MG TABLET PO (09:28)
[2020-07-02] MEDS: INSULIN GLARGINE (*BKC) 100 UNITS/ML 10 UNITS SUB-Q (09:29)
[2020-07-02] MEDS: PREGABALIN (*CRX) 50 MG CAPSULE 200 MG PO ×2 (12:30→16:48)
[2020-07-02 13:04] LABS: Glucose Point of Care 145 (65-105)
[2020-07-02] MEDS: EUCERIN CREAM 120 GM JAR 1 APPLIC TOPICAL (13:52)
--- NOTE | 2020-07-02 17:06 | P.PNIM_ITS ---
Progress Note: A&P Assessment and Plan (1) COVID-19: Code(s): U07.1 - COVID-19 Status: Acute Assessment and Plan: * Here for 5 days of remdesivir. Tomorrow last dose of remdesivir. Hopeful discharge tomorrow. (2) Elevated troponin: Code(s): R77.8 - Other specified abnormalities of plasma proteins Status: Acute Assessment and Plan: * no current acute coronary syndrome (3) Chronic obstructive pulmonary disease: Qualifiers: COPD type: unspecified COPD Qualified Code(s): J44.9 - Chronic obstructive pulmonary disease, unspecified Code(s): J44.9 - Chronic obstructive pulmonary disease, unspecified Status: Acute Assessment and Plan: * continue home oxygen baseline is 3 liters (4) Insulin dependent type 2 diabetes mellitus: Code(s): E11.9 - Type 2 diabetes mellitus without complications; Z79.4 - long term care social worker (current) use of insulin Status: Acute Assessment and Plan: * Sugars are 195 today * Continue AccuCheks covering with sliding scale. Hypoglycemia protocol available as needed. * Continue Lantus (5) Chronic respiratory failure with hypoxia: Code(s): J96.11 - Chronic respiratory failure with hypoxia Status: Acute Assessment and Plan: * Stable * continue home oxygen and as needed maintain saturations 90% or above (6) Chest wall pain: Code(s): R07.89 - Other chest pain Status: Acute Assessment and Plan: * analgesics as needed (7) Occult blood in stools: Code(s): R19.5 - Other fecal abnormalities Status: Acute Assessment and Plan: * Occult blood in stool as described but guaiac negative x 2 (05/30 and 06/30) * N (8) CAD (coronary artery disease): Qualifiers: Coronary Disease-Associated Artery/Lesion type: [place] artery [place] vs. transplanted heart: [place] heart Associated angina: without angina Qualified Code(s): I25.10 - Atherosclerotic heart disease of [place] coronary artery without angina pectoris Code(s): I25.10 - Atherosclerotic heart disease of [place] coronary artery without angina pectoris Status: Acute Assessment and Plan: * recent myocardial infarction and coronary stenting 06/13/20 * no current angina pectoris. * Continue aspirin and Plavix. * No beta-rafa due to bradycardia. (9) Afib: Code(s): I48.91 - Unspecified atrial fibrillation Status: Acute Assessment and Plan: * Cardiology notified HR went low and then high. HR is stable now ? infection ? needs holter monitor on discharge (10) Chronic kidney disease, stage 3: Qualifiers: Chronic kidney disease stage 3 subtype: unspecified whether 3a or 3b Qualified Code(s): N18.30 - Chronic kidney disease, stage 3 unspecified Code(s): N18.30 - Chronic kidney disease, stage 3 unspecified Status: Acute Assessment and Plan: * Continue to monitor periodically, creat is 1.6 (11) Anemia: Qualifiers: Anemia type: other cause Other causes of anemia: other cause, not classified Qualified Code(s): D64.89 - Other specified anemias Code(s): D64.9 - Anemia, unspecified Status: Acute Assessment and Plan: * Patient with chronic anemia hemoglobin running mostly in the 8 range since March 2019 * Etiology unclear but could be related to CKD. * (12) DVT prophylaxis:
--- NOTE | 2020-07-02 17:06 | PM.IMPN ---
Progress Note: A&P Assessment and Plan (1) COVID-19: Code(s): U07.1 - COVID-19 Status: Acute Assessment and Plan: Here for 5 days of remdesivir. Tomorrow last dose of remdesivir. Hopeful discharge tomorrow. (2) Elevated troponin: Code(s): R77.8 - Other specified abnormalities of plasma proteins Status: Acute Assessment and Plan: no current acute coronary syndrome (3) Chronic obstructive pulmonary disease: Qualifiers: COPD type: unspecified COPD Qualified Code(s): J44.9 - Chronic obstructive pulmonary disease, unspecified Code(s): J44.9 - Chronic obstructive pulmonary disease, unspecified Status: Acute Assessment and Plan: continue home oxygen baseline is 3 liters (4) Insulin dependent type 2 diabetes mellitus: Code(s): E11.9 - Type 2 diabetes mellitus without complications; Z79.4 - halfway (current) use of insulin Status: Acute Assessment and Plan: Sugars are 195 today Continue AccuCheks covering with sliding scale. Hypoglycemia protocol available as needed. Continue Lantus (5) Chronic respiratory failure with hypoxia: Code(s): J96.11 - Chronic respiratory failure with hypoxia Status: Acute Assessment and Plan: Stable continue home oxygen and as needed maintain saturations 90% or above (6) Chest wall pain: Code(s): R07.89 - Other chest pain Status: Acute Assessment and Plan: analgesics as needed (7) Occult blood in stools: Code(s): R19.5 - Other fecal abnormalities Status: Acute Assessment and Plan: Occult blood in stool as described but guaiac negative x 2 (05/30 and 06/30) N (8) CAD (coronary artery disease): Qualifiers: Coronary Disease-Associated Artery/Lesion type: [place] artery [place] vs. transplanted heart: [place] heart Associated angina: without angina Qualified Code(s): I25.10 - Atherosclerotic heart disease of [place] coronary artery without angina pectoris Code(s): I25.10 - Atherosclerotic heart disease of [place] coronary artery without angina pectoris Status: Acute Assessment and Plan: recent myocardial infarction and coronary stenting 06/13/20 no current angina pectoris. Continue aspirin and Plavix. No beta-rafa due to bradycardia. (9) Afib: Code(s): I48.91 - Unspecified atrial fibrillation Status: Acute Assessment and Plan: Cardiology notified HR went low and then high. HR is stable now ? infection ? needs holter monitor on discharge (10) Chronic kidney disease, stage 3: Qualifiers: Chronic kidney disease stage 3 subtype: unspecified whether 3a or 3b Qualified Code(s): N18.30 - Chronic kidney disease, stage 3 unspecified Code(s): N18.30 - Chronic kidney disease, stage 3 unspecified Status: Acute Assessment and Plan: Continue to monitor periodically, creat is 1.6 (11) Anemia: Qualifiers: Anemia type: other cause Other causes of anemia: other cause, not classified Qualified Code(s): D64.89 - Other specified anemias Code(s): D64.9 - Anemia, unspecified Status: Acute Assessment and Plan: Patient with chronic anemia hemoglobin running mostly in the 8 range since March 2019 Etiology unclear but could be related to CKD. (12) DVT prophylaxis: Code(s): Z29.9 - Encounter for prophylactic measures, unspecified Status: Acute Assessment and Plan: SCDs given the anemia and concern for GI bleed. Subjective Date/time seen: 07/02/20 17:06 Interval history: 80yo female with chronic respiratory failure and CAD with recent LAD stent 06/13/20 here for SOB and fever, weakness and found to have COVID. Pt does not feel well back hurts, fatigued, coughing, sob. Pts HR went low then it went high related to ? infection. Cardiology
[2020-07-02 17:23] LABS: Glucose Point of Care 200 (65-105)
[2020-07-02] MEDS: HYDROcodone/acetaminophen (*CRX) 5-325 MG TABLET 1 TAB PO (18:56)
[2020-07-02] MEDS: TIZANIDINE HCL 4 MG TABLET PO (20:36)
[2020-07-03] VITALS (13 sets, daily range): BP systolic 132–164; BP diastolic 52–78; PULSE 48–92; RESP 18–20; TEMP 36.7–37.4; O2SAT 92–99
[2020-07-03 01:10] LABS: Glucose Point of Care 195 (65-105)
[2020-07-03] MEDS: ACETAMINOPHEN 325 MG TABLET 650 MG PO ×4 (04:13→21:18)
[2020-07-03] MEDS: CENTRAL LINE FLUSH 10 ML IV PUSH ×3 (05:46→21:11)
[2020-07-03 05:50] LABS: Hematocrit 30.1 % (37.0-47.0); Immature Granulocyte Absolute 0.11 K/mm3 (0.00-0.031); Immature Granulocyte Percent A 3.1 % (0-0.5); Lymphocytes Absolute Auto 0.75 K/mm3 (0.9-3.2); Lymphocytes Percent Auto 20.9 % (18.3-44.2); Mean Corpuscular HGB Conc 29.9 g/dl (32-36); Mean Corpuscular Hemoglobin 28.4 pg (26-34); Monocytes Absolute Auto 0.5 K/mm3 (0.1-0.6); Monocytes Percent Auto 12.6 % (2.6-8.5); Neutrophils Absolute Auto 2.3 K/mm3 (1.3-6.7); Neutrophils Percent Auto 63.4 % (45.5-73.1); Platelet Count Result 205 k/mm3 (150-375); Red Blood Count 3.17 M/mm3 (4.2-5.4); Red Cell Distribution Width 17.1 % (11.5-14.5); White Blood Count 3.6 K/mm3 (4.5-10.0)
[2020-07-03 06:17] LABS: Hypochromasia 1+ (NORMAL); Ovalocytes 1+ (NORMAL); Platelet Estimate Adequate (Adequate); Stomatocytes 1+ (NORMAL)
[2020-07-03 06:18] LABS: Alanine Aminotransferase 18 U/L (4-35); Albumin Level 2.9 g/dL (3.5-5.1); Alkaline Phosphatase 55 U/L (38-126); Anion Gap 9.99999 mmol/L (8-16); Aspartate Amino Transferase 37 U/L (14-36); Bilirubin,Total 0.3 mg/dL (0.2-1.3); Blood Urea Nitrogen 58 mg/dL (7-17); CRP 2.8 mg/dL (<1.0); Calcium 8.3 mg/dL (8.4-10.2); Carbon Dioxide > 40 mmol/L (22-30); Chloride 92 mmol/L (98-107); Estimated CRCL calculation 31 ml/min; Estimated Glomerular Filt Rate 31; Glucose 76 mg/dL (65-105); Lactate Dehydrogenase 752 U/L (313-618); Potassium 3.5 mmol/L (3.4-5.0); Sodium 142 mmol/L (137-145)
[2020-07-03] MEDS: ALBUTEROL SULFATE (*SP) AEROSOL 1 PUFF 4 PUFF INHALATION ×4 (09:04→21:03)
--- NOTE | 2020-07-03 09:19 | P.DS_ITS ---
DS: Admitting Diagnosis Admitting Diagnosis Admitting Diagnosis: Shortness of breath and weakness. DS: Discharge Diagnosis Discharge Diagnosis (1) COVID-19: Code(s): U07.1 - COVID-19 Status: Acute Assessment and Plan: * Here for 5 days of remdesivir. And IV steroids * Pt did well on treatment back to her baseline oxygen requirements. * Pt to go home with medrol dose pack. * Can return if severe SOB or spiking fevers (2) Elevated troponin: Code(s): R77.8 - Other specified abnormalities of plasma proteins Status: Acute Assessment and Plan: * No current acute coronary syndrome * pt to continue with ASA and statin * Pt to follow with DR Rodarte in 2-3 weeks time (3) Chronic obstructive pulmonary disease: Qualifiers: COPD type: unspecified COPD Qualified Code(s): J44.9 - Chronic obstructive pulmonary disease, unspecified Code(s): J44.9 - Chronic obstructive pulmonary disease, unspecified Status: Acute Assessment and Plan: * continue home oxygen baseline is 3 liters (4) Insulin dependent type 2 diabetes mellitus: Code(s): E11.9 - Type 2 diabetes mellitus without complications; Z79.4 - longterm (current) use of insulin Status: Acute Assessment and Plan: * Sugars are 195 today * Continue AccuCheks covering with sliding scale. Hypoglycemia protocol available as needed. * Continue Lantus (5) Chronic respiratory failure with hypoxia: Code(s): J96.11 - Chronic respiratory failure with hypoxia Status: Acute Assessment and Plan: * Stable * continue home oxygen and as needed maintain saturations 90% or above (6) Chest wall pain: Code(s): R07.89 - Other chest pain Status: Resolved Assessment and Plan: * Analgesics as needed (7) Occult blood in stools: Code(s): R19.5 - Other fecal abnormalities Status: Acute Assessment and Plan: * Occult blood in stool as described but guaiac negative x 2 (05/30 and 06/30) (8) CAD (coronary artery disease): Qualifiers: Coronary Disease-Associated Artery/Lesion type: [place] artery [place] vs. transplanted heart: [place] heart Associated angina: without angina Qualified Code(s): I25.10 - Atherosclerotic heart disease of [place] coronary artery without angina pectoris Code(s): I25.10 - Atherosclerotic heart disease of [place] coronary artery without angina pectoris Status: Acute Assessment and Plan: * recent myocardial infarction and coronary stenting 06/13/20 * no current angina pectoris. * Continue aspirin and Plavix. * No beta-rafa due to bradycardia. (9) Afib: Code(s): I48.91 - Unspecified atrial fibrillation Status: Acute Assessment and Plan: * Cardiology notified HR went low and then high. HR is stable now ? infection no need for holter monitor at this time, pt to follow with DR Rodarte (10) Chronic kidney disease, stage 3: Qualifiers: Chronic kidney disease stage 3 subtype: unspecified whether 3a or 3b Qualified Code(s): N18.30 - Chronic kidney disease, stage 3 unspecified Code(s): N18.30 - Chronic kidney disease, stage 3 unspecified Status: Acute Assessment and Plan: * Continue to monitor periodically, creat is 1.6, pt adviced to drink more water and follow with PCP (11) Anemia: Qualifiers: Anemia type:
--- NOTE | 2020-07-03 09:19 | PM.DS ---
DS: Admitting Diagnosis Admitting Diagnosis Admitting Diagnosis: Shortness of breath and weakness. DS: Discharge Diagnosis Discharge Diagnosis (1) COVID-19: Code(s): U07.1 - COVID-19 Status: Acute Assessment and Plan: Here for 5 days of remdesivir. And IV steroids Pt did well on treatment back to her baseline oxygen requirements. Pt to go home with medrol dose pack. Can return if severe SOB or spiking fevers (2) Elevated troponin: Code(s): R77.8 - Other specified abnormalities of plasma proteins Status: Acute Assessment and Plan: No current acute coronary syndrome pt to continue with ASA and statin Pt to follow with DR Rodarte in 2-3 weeks time (3) Chronic obstructive pulmonary disease: Qualifiers: COPD type: unspecified COPD Qualified Code(s): J44.9 - Chronic obstructive pulmonary disease, unspecified Code(s): J44.9 - Chronic obstructive pulmonary disease, unspecified Status: Acute Assessment and Plan: continue home oxygen baseline is 3 liters (4) Insulin dependent type 2 diabetes mellitus: Code(s): E11.9 - Type 2 diabetes mellitus without complications; Z79.4 - vermin exterminator (current) use of insulin Status: Acute Assessment and Plan: Sugars are 195 today Continue AccuCheks covering with sliding scale. Hypoglycemia protocol available as needed. Continue Lantus (5) Chronic respiratory failure with hypoxia: Code(s): J96.11 - Chronic respiratory failure with hypoxia Status: Acute Assessment and Plan: Stable continue home oxygen and as needed maintain saturations 90% or above (6) Chest wall pain: Code(s): R07.89 - Other chest pain Status: Resolved Assessment and Plan: Analgesics as needed (7) Occult blood in stools: Code(s): R19.5 - Other fecal abnormalities Status: Acute Assessment and Plan: Occult blood in stool as described but guaiac negative x 2 (05/30 and 06/30) (8) CAD (coronary artery disease): Qualifiers: Coronary Disease-Associated Artery/Lesion type: [place] artery [place] vs. transplanted heart: [place] heart Associated angina: without angina Qualified Code(s): I25.10 - Atherosclerotic heart disease of [place] coronary artery without angina pectoris Code(s): I25.10 - Atherosclerotic heart disease of [place] coronary artery without angina pectoris Status: Acute Assessment and Plan: recent myocardial infarction and coronary stenting 06/13/20 no current angina pectoris. Continue aspirin and Plavix. No beta-rafa due to bradycardia. (9) Afib: Code(s): I48.91 - Unspecified atrial fibrillation Status: Acute Assessment and Plan: Cardiology notified HR went low and then high. HR is stable now ? infection no need for holter monitor at this time, pt to follow with DR Rodarte (10) Chronic kidney disease, stage 3: Qualifiers: Chronic kidney disease stage 3 subtype: unspecified whether 3a or 3b Qualified Code(s): N18.30 - Chronic kidney disease, stage 3 unspecified Code(s): N18.30 - Chronic kidney disease, stage 3 unspecified Status: Acute Assessment and Plan: Continue to monitor periodically, creat is 1.6, pt adviced to drink more water and follow with PCP (11) Anemia: Qualifiers: Anemia type: other cause Other causes of anemia: other cause, not classified Qualified Code(s): D64.89 - Other specified anemias Code(s): D64.9 - Anemia, unspecified Status: Acute Assessment and Plan: Patient with chronic anemia hemoglobin running mostly in the 8 range since March 2019 Etiology unclear but could be related to CKD. Hb is Around 9 (12) DVT prophylaxis: Code(s): Z29.9 - Encounter for prophylactic measures, unspecified Status: Acute DS: S
[2020-07-03] MEDS: DEXAMETHASONE SOD PHOS INJ 4 MG/ML VIAL 6 MG IV PUSH (09:55)
[2020-07-03] MEDS: CLOPIDOGREL BISULFATE 75 MG TABLET PO (09:55)
[2020-07-03] MEDS: ASPIRIN 81 MG ENTERIC TABLET PO (09:55)
[2020-07-03] MEDS: FENOFIBRATE NANOCRYSTALLIZED 145 MG TABLET PO (09:55)
[2020-07-03] MEDS: hydrALAZINE HCL 25 MG TABLET PO ×2 (09:55→17:28)
[2020-07-03] MEDS: FERROUS SULFATE 324 MG TABLET PO ×2 (09:55→17:28)
[2020-07-03] MEDS: TORSEMIDE 20 MG TABLET PO (09:55)
[2020-07-03] MEDS: calcitrioL 0.25 MCG CAPSULE PO (09:55)
[2020-07-03] MEDS: amLODIPine BESYLATE 5 MG TABLET PO (09:55)
[2020-07-03] MEDS: MAGNESIUM OXIDE 400 MG TABLET PO (09:55)
[2020-07-03] MEDS: LIDOCAINE 5% PATCH 1 PATCH TRANSDERM (09:55)
[2020-07-03] MEDS: PANTOPRAZOLE 40 MG TABLET PO (09:55)
[2020-07-03] MEDS: ATORVASTATIN 40 MG TABLET 80 MG PO (09:55)
[2020-07-03] MEDS: ISOSORBIDE MONONITRATE 30 MG TAB.ER.24H PO (09:57)
[2020-07-03] MEDS: EUCERIN CREAM 120 GM JAR 1 APPLIC TOPICAL (10:07)
[2020-07-03] MEDS: PREGABALIN (*CRX) 50 MG CAPSULE 200 MG PO ×2 (10:11→17:28)
[2020-07-03] MEDS: REMDESIVIR 100 MG/NS 250 ML 100 MG/250 ML BAG 250 MG IVPB (10:12)
[2020-07-03 10:24] LABS: Glucose Point of Care 139 (65-105)
[2020-07-03 10:24] LABS: Glucose Point of Care 67 (65-105)
[2020-07-03 12:31] LABS: Glucose Point of Care 100 (65-105)
[2020-07-03] MEDS: INSULIN ASPART (*BKC) 100 UNITS/ML SUB-Q (17:28)
[2020-07-03 17:39] LABS: Glucose Point of Care 213 (65-105)
--- NOTE | 2020-07-03 17:45 | P.PNIM_ITS ---
Progress Note: A&P Assessment and Plan (1) COVID-19: Code(s): U07.1 - COVID-19 Status: Acute Assessment and Plan: * Here for 5 days of remdesivir. And IV steroids * Pt did well on treatment back to her baseline oxygen requirements. * (2) Elevated troponin: Code(s): R77.8 - Other specified abnormalities of plasma proteins Status: Acute Assessment and Plan: * No current acute coronary syndrome * pt to continue with ASA and statin * Pt to follow with DR Rodarte in 2-3 weeks time (3) Chronic obstructive pulmonary disease: Qualifiers: COPD type: unspecified COPD Qualified Code(s): J44.9 - Chronic obstructive pulmonary disease, unspecified Code(s): J44.9 - Chronic obstructive pulmonary disease, unspecified Status: Acute Assessment and Plan: * continue home oxygen baseline is 3 liters (4) Insulin dependent type 2 diabetes mellitus: Code(s): E11.9 - Type 2 diabetes mellitus without complications; Z79.4 - jail (current) use of insulin Status: Acute Assessment and Plan: * Sugars are 195 today * Continue AccuCheks covering with sliding scale. Hypoglycemia protocol available as needed. * Continue Lantus (5) Chronic respiratory failure with hypoxia: Code(s): J96.11 - Chronic respiratory failure with hypoxia Status: Acute Assessment and Plan: * Stable * continue home oxygen and as needed maintain saturations 90% or above (6) Chest wall pain: Code(s): R07.89 - Other chest pain Status: Resolved Assessment and Plan: * Analgesics as needed * Now complaining of back pain , pt to have xrays of spine prior to discharge tomorrow. (7) Occult blood in stools: Code(s): R19.5 - Other fecal abnormalities Status: Acute Assessment and Plan: * Occult blood in stool as described but guaiac negative x 2 (05/30 and 06/30) (8) CAD (coronary artery disease): Qualifiers: Coronary Disease-Associated Artery/Lesion type: [place] artery [place] vs. transplanted heart: [place] heart Associated angina: without angina Qualified Code(s): I25.10 - Atherosclerotic heart disease of [place] coronary artery without angina pectoris Code(s): I25.10 - Atherosclerotic heart disease of [place] coronary artery without angina pectoris Status: Acute Assessment and Plan: * recent myocardial infarction and coronary stenting 06/13/20 * no current angina pectoris. * Continue aspirin and Plavix. * No beta-rafa due to bradycardia. (9) Afib: Code(s): I48.91 - Unspecified atrial fibrillation Status: Acute Assessment and Plan: * Cardiology notified HR went low and then high. HR is stable now ? infection no need for holter monitor at this time, pt to follow with DR Rodarte (10) Chronic kidney disease, stage 3: Qualifiers: Chronic kidney disease stage 3 subtype: unspecified whether 3a or 3b Qualified Code(s): N18.30 - Chronic kidney disease, stage 3 unspecified Code(s): N18.30 - Chronic kidney disease, stage 3 unspecified Status: Acute Assessment and Plan: * Continue to monitor periodically, creat is 1.6, pt adviced to drink more water and follow with PCP (11) Anemia: Qualifiers: Anemia type: other cause Other causes of anemia: other cause, not classified Qualified Code(s): D64.89 - Other specified anem
--- NOTE | 2020-07-03 17:45 | PM.IMPN ---
Progress Note: A&P Assessment and Plan (1) COVID-19: Code(s): U07.1 - COVID-19 Status: Acute Assessment and Plan: Here for 5 days of remdesivir. And IV steroids Pt did well on treatment back to her baseline oxygen requirements. (2) Elevated troponin: Code(s): R77.8 - Other specified abnormalities of plasma proteins Status: Acute Assessment and Plan: No current acute coronary syndrome pt to continue with ASA and statin Pt to follow with DR Rodarte in 2-3 weeks time (3) Chronic obstructive pulmonary disease: Qualifiers: COPD type: unspecified COPD Qualified Code(s): J44.9 - Chronic obstructive pulmonary disease, unspecified Code(s): J44.9 - Chronic obstructive pulmonary disease, unspecified Status: Acute Assessment and Plan: continue home oxygen baseline is 3 liters (4) Insulin dependent type 2 diabetes mellitus: Code(s): E11.9 - Type 2 diabetes mellitus without complications; Z79.4 - half-way (current) use of insulin Status: Acute Assessment and Plan: Sugars are 195 today Continue AccuCheks covering with sliding scale. Hypoglycemia protocol available as needed. Continue Lantus (5) Chronic respiratory failure with hypoxia: Code(s): J96.11 - Chronic respiratory failure with hypoxia Status: Acute Assessment and Plan: Stable continue home oxygen and as needed maintain saturations 90% or above (6) Chest wall pain: Code(s): R07.89 - Other chest pain Status: Resolved Assessment and Plan: Analgesics as needed Now complaining of back pain , pt to have xrays of spine prior to discharge tomorrow. (7) Occult blood in stools: Code(s): R19.5 - Other fecal abnormalities Status: Acute Assessment and Plan: Occult blood in stool as described but guaiac negative x 2 (05/30 and 06/30) (8) CAD (coronary artery disease): Qualifiers: Coronary Disease-Associated Artery/Lesion type: [place] artery [place] vs. transplanted heart: [place] heart Associated angina: without angina Qualified Code(s): I25.10 - Atherosclerotic heart disease of [place] coronary artery without angina pectoris Code(s): I25.10 - Atherosclerotic heart disease of [place] coronary artery without angina pectoris Status: Acute Assessment and Plan: recent myocardial infarction and coronary stenting 06/13/20 no current angina pectoris. Continue aspirin and Plavix. No beta-rafa due to bradycardia. (9) Afib: Code(s): I48.91 - Unspecified atrial fibrillation Status: Acute Assessment and Plan: Cardiology notified HR went low and then high. HR is stable now ? infection no need for holter monitor at this time, pt to follow with DR Rodarte (10) Chronic kidney disease, stage 3: Qualifiers: Chronic kidney disease stage 3 subtype: unspecified whether 3a or 3b Qualified Code(s): N18.30 - Chronic kidney disease, stage 3 unspecified Code(s): N18.30 - Chronic kidney disease, stage 3 unspecified Status: Acute Assessment and Plan: Continue to monitor periodically, creat is 1.6, pt adviced to drink more water and follow with PCP (11) Anemia: Qualifiers: Anemia type: other cause Other causes of anemia: other cause, not classified Qualified Code(s): D64.89 - Other specified anemias Code(s): D64.9 - Anemia, unspecified Status: Acute Assessment and Plan: Patient with chronic anemia hemoglobin running mostly in the 8 range since March 2019 Etiology unclear but could be related to CKD. Hb is Around 9 (12) DVT prophylaxis: Code(s): Z29.9 - Encounter for prophylactic measures, unspecified Status: Acute Subjective Date/time seen: 07/03/20 17:45 Interval history: 80yo female with chronic respiratory failure
[2020-07-03] MEDS: TIZANIDINE HCL 4 MG TABLET PO (20:15)
--- NOTE | 2020-07-03 21:15 | ECG_ITS ---
Measurements Intervals [place] Rate: 71 P: OR: 0 QRS: -15 QRSD: 144 T: 132 QT: 450 QTc: 491 Interpretive Statements ATRIAL FIBRILLATION LEFT BUNDLE BRANCH BLOCK BASELINE ARTIFACT- II, III, AVL, AVF ABNORMAL ECG Electronically Signed On 07-04-2020 7:07:45 NODULIZER by Rick Zapata D.O.
[2020-07-03 21:29] LABS: Glucose Point of Care 189 (65-105)
[2020-07-04] VITALS (7 sets, daily range): BP systolic 97–152; BP diastolic 52–89; PULSE 40–109; RESP 18–20; TEMP 36.3–36.8; O2SAT 94–100
[2020-07-04] MEDS: ACETAMINOPHEN 325 MG TABLET 650 MG PO ×2 (03:54→12:25)
[2020-07-04] MEDS: TIZANIDINE HCL 4 MG TABLET PO (03:59)
[2020-07-04 04:25] LABS: Basophils Percent Auto 0.3 % (0.2-1.2); Hematocrit 28.9 % (37.0-47.0); Hemoglobin 8.7 g/dL (12.0-15.0); Immature Granulocyte Absolute 0.12 K/mm3 (0.00-0.031); Immature Granulocyte Percent A 3.3 % (0-0.5); Lymphocytes Absolute Auto 0.79 K/mm3 (0.9-3.2); Lymphocytes Percent Auto 21.6 % (18.3-44.2); Mean Corpuscular HGB Conc 30.1 g/dl (32-36); Mean Corpuscular Hemoglobin 28.2 pg (26-34); Mean Corpuscular Volume 93.8 fl (80-100); Mean Platelet Volume 12.3 fl (7.4-10.4); Monocytes Absolute Auto 0.5 K/mm3 (0.1-0.6); Monocytes Percent Auto 13.4 % (2.6-8.5); Neutrophils Absolute Auto 2.2 K/mm3 (1.3-6.7); Neutrophils Percent Auto 61.4 % (45.5-73.1); Platelet Count Result 228 k/mm3 (150-375); Red Blood Count 3.08 M/mm3 (4.2-5.4); Red Cell Distribution Width 17.2 % (11.5-14.5); White Blood Count 3.7 K/mm3 (4.5-10.0)
[2020-07-04 04:44] LABS: Alanine Aminotransferase 19 U/L (4-35); Albumin Level 2.9 g/dL (3.5-5.1); Alkaline Phosphatase 49 U/L (38-126); Anion Gap 9.99999 mmol/L (8-16); Aspartate Amino Transferase 37 U/L (14-36); Bilirubin,Total 0.4 mg/dL (0.2-1.3); Blood Urea Nitrogen 61 mg/dL (7-17); CRP 2.2 mg/dL (<1.0); Calcium 8.3 mg/dL (8.4-10.2); Carbon Dioxide > 40 mmol/L (22-30); Chloride 90 mmol/L (98-107); Estimated CRCL calculation 33 ml/min; Estimated Glomerular Filt Rate 34; Glucose 98 mg/dL (65-105); Lactate Dehydrogenase 801 U/L (313-618); Potassium 3.5 mmol/L (3.4-5.0); Sodium 140 mmol/L (137-145)
[2020-07-04] MEDS: CENTRAL LINE FLUSH 10 ML IV PUSH ×2 (05:09→15:15)
[2020-07-04] MEDS: TORSEMIDE 20 MG TABLET PO (09:12)
[2020-07-04] MEDS: amLODIPine BESYLATE 5 MG TABLET PO (09:12)
[2020-07-04] MEDS: hydrALAZINE HCL 25 MG TABLET PO (09:12)
[2020-07-04] MEDS: FERROUS SULFATE 324 MG TABLET PO (09:12)
[2020-07-04] MEDS: LIDOCAINE 5% PATCH 1 PATCH TRANSDERM (09:13)
[2020-07-04] MEDS: calcitrioL 0.25 MCG CAPSULE PO (09:13)
[2020-07-04] MEDS: ISOSORBIDE MONONITRATE 30 MG TAB.ER.24H PO (09:13)
[2020-07-04] MEDS: MAGNESIUM OXIDE 400 MG TABLET PO (09:13)
[2020-07-04] MEDS: CLOPIDOGREL BISULFATE 75 MG TABLET PO (09:13)
[2020-07-04] MEDS: ATORVASTATIN 40 MG TABLET 80 MG PO (09:14)
[2020-07-04] MEDS: DEXAMETHASONE SOD PHOS INJ 4 MG/ML VIAL 6 MG IV PUSH (09:14)
[2020-07-04] MEDS: ASPIRIN 81 MG ENTERIC TABLET PO (09:14)
[2020-07-04] MEDS: FENOFIBRATE NANOCRYSTALLIZED 145 MG TABLET PO (09:15)
[2020-07-04] MEDS: EUCERIN CREAM 120 GM JAR 1 APPLIC TOPICAL (09:15)
[2020-07-04] MEDS: ALBUTEROL SULFATE (*SP) AEROSOL 1 PUFF 4 PUFF INHALATION ×3 (09:16→16:56)
[2020-07-04] MEDS: PANTOPRAZOLE 40 MG TABLET PO (09:16)
[2020-07-04] MEDS: INSULIN GLARGINE (*BKC) 100 UNITS/ML 10 UNITS SUB-Q (09:16)
[2020-07-04] MEDS: PREGABALIN (*CRX) 50 MG CAPSULE 200 MG PO (09:17)
[2020-07-04 09:58] LABS: Glucose Point of Care 108 (65-105)
[2020-07-04 12:43] LABS: Glucose Point of Care 140 (65-105)
[2020-07-04 13:58] LABS: Alveolar/Arterial O2 Gradient 89.7 mmHg; Base Excess ABG 8.7 mEq/l (+/-2.0); Fractional Inspired Oxygen 32 %; HCO3 ABG 33.8 mEq/l (22.0-26.0); Oxygen Content ABG 14.1 %vol (16.0-22.0); Oxygen Saturation ABG 96.2 % (95.0-100.0); Oxyhemoglobin 94.3 % THb (90.0-100.0); PCO2 ABG 49.8 mmHg (35.0-45.0); PO2 ABG 80.2 mmHg (80.0-100.0); PO2 FiO2 Ratio Arterial Blood 2.51 %; Total Hemoglobin 10.6 g/dL (12.0-18.0)
[2020-07-04 13:59] LABS: Device NASAL CANNULA; Modified Allen's Test Pass; Site Drawn LEFT RADIAL
== END 2020-07-04 17:35 | disposition home health service (06) | DRG 177 ==
LOC: ANHED 13:26 → ANHIMU 14:54 → ANHICU 16:19 → ANH3MEDSUR 07-02 08:40 → ANHICU 07-09 12:03 → ANHIMU 07-09 12:03
PROVIDERS: Emergency Medicine Emergency Medical Services; Family Medicine; Internal Medicine; Internal Medicine Gastroenterology; Physician Assistant; Admitting Provider Family Medicine; Emergency Provider Emergency Medicine; PCP Internal Medicine; Visit Provider Internal Medicine
DX: U07.1 COVID-19 (principal); J12.89 Other viral pneumonia; I22.2 Subsequent non-ST elevation (NSTEMI) myocardial infarction; J96.11 Chronic respiratory failure with hypoxia; I13.0 Hypertensive heart and chronic kidney disease with heart failure and stage 1 through stage 4 chronic kidney disease, or unspecified chronic kidney disease; J44.0 Chronic obstructive pulmonary disease with (acute) lower respiratory infection; I50.32 Chronic diastolic (congestive) heart failure; E11.22 Type 2 diabetes mellitus with diabetic chronic kidney disease; N18.30 Chronic kidney disease, stage 3 unspecified; R79.89 Other specified abnormal findings of blood chemistry; R07.89 Other chest pain; R19.5 Other fecal abnormalities; G47.30 Sleep apnea, unspecified; I25.10 Atherosclerotic heart disease of native coronary artery without angina pectoris; I48.91 Unspecified atrial fibrillation; D63.1 Anemia in chronic kidney disease; R00.1 Bradycardia, unspecified; M47.812 Spondylosis without myelopathy or radiculopathy, cervical region; M47.814 Spondylosis without myelopathy or radiculopathy, thoracic region; M47.816 Spondylosis without myelopathy or radiculopathy, lumbar region; Z99.81 Dependence on supplemental oxygen; Z95.5 Presence of coronary angioplasty implant and graft; Z79.4 Long term (current) use of insulin
CPT/HCPCS: 36415; 36569; 36600; 51701; 71045; 72040; 72072; 72100; 80053; 81003; 82274; 82375; 82550; 82728; 82805; 83050; 83605; 83615; 83690; 83880; 84484; 85014; 85018; 85025; 85055; 85380; 85610; 85730; 86140; 87040; 87635; 87804; 93005; 94640; 96374; 96375; 97110; 97116; 97161; 97165; 97530; 97535; 99285; A9270; C1751; C9803; J0131; J0456; J0696; J1100; J1815; J1940; J2405; J2765; U0003

== ENCOUNTER 2020-08-12 21:31 | Inpatient (IN) | payer MEDICARE, SELFPAY ==
[2020-08-12] VITALS (15 sets, daily range): BP systolic 154–187; BP diastolic 70–101; PULSE 80–113; RESP 16–28; TEMP 36.5; O2SAT 90–98
--- NOTE | ~2020-08-12 | XR_ITS ---
EXAMINATION: XR chest 1V portable EXAM DATE: 08/22/2020 06:19 INDICATION: Shortness of breath. TECHNIQUE: Portable AP frontal chest x-ray was obtained. Comparison is made to prior examination from 08/12/2020. FINDINGS: Small left pleural effusion. There is retrocardiac consolidation, air bronchograms. Could b e atelectasis an/or pneumonia. Asymmetric edema also possible. There is cardiomegaly and pulmonary va scular congestion. There is no pneumothorax suspected. There is aortic arteriosclerosis. Some bony de generative changes. IMPRESSION: 1. Findings consistent with CHF exacerbation. 2. Retrocardiac consolidation, atelectasis or pneumonia less likely. 3. Small left pleural effusion. Reviewed, dictated and finalized at location A. TOR OPERATOR
--- NOTE | ~2020-08-12 | XR_ITS ---
EXAMINATION: XR chest 1V portable EXAM DATE: 08/12/2020 21:56 INDICATION: Shortness of breath and dizziness. Fever. COVID diagnosed one month ago. TECHNIQUE: Portable AP frontal chest x-ray was obtained. Comparison is made to prior examination from 06/30/2020. FINDINGS: Again there is some patchy bilateral ill-defined edema or infection, appearance not signifi cantly changed. There is small to moderate left pleural effusion more pronounced than on prior study. No pneumothorax. The cardiac silhouette is enlarged. There are bony degenerative changes. IMPRESSION: 1. Persistent patchy ill-defined bilateral edema or pneumonia. Reviewed, dictated and finalized at location A. SAMPLER
--- NOTE | ~2020-08-12 | CT_ITS ---
EXAMINATION: CTA chest PE protocol DATE: 08/13/2020 00:10 INDICATION: Dyspnea. TECHNIQUE: Computed tomography angiography (CTA) of the chest was performed with 100 mL Omnipaque-350 intravenous contrast timed to evaluate the pulmonary arteries. Coronal maximum intensity projection 3D-reconstructions were created by the technologist. Automated exposure control and iterative reconst ruction technique were employed. The dose-length product was 960.24 mGy-cm. COMPARISON: Chest CT 06/06/2020 FINDINGS: There are small pleural effusions. There is dependent passive atelectasis in the lungs. The re are mild airspace opacities in right upper lobe and right lower lobe. Cardiomegaly is noted. A jakub cified right lung nodule and calcified right hilar and mediastinal lymph nodes are consistent with ol d granulomatous disease. There are coronary artery calcifications. No pericardial effusion. There is no pulmonary embolus. The central pulmonary arteries are enlarged, consistent with pulmonary arterial hypertension. There is a moderate-sized sliding hiatal hernia. There is a 2.0 cm subcutaneous mass i n left posterior superior thorax, likely a sebaceous cyst. There is moderate thoracic spondylosis. Th ere is a chronic burst fracture of T12. IMPRESSION: 1. No pulmonary embolus. 2. Small pleural effusions. 3. Mild airspace opacities in right upper lobe and right lower lobe, consistent with atelectasis vers us pneumonia. 4. Cardiomegaly. 5. Moderate-sized sliding hiatal hernia. Reviewed, dictated and finalized at location A. BURNER TECHNICIAN IMPRESSION: 1. No pulmonary embolus. 2. Small pleural effusions. 3. Mild airspace opacities in right upper lobe and right lower lobe, consistent with atelectasis versus pneumonia. 4. Cardiomegaly. 5. Moderate-sized sliding hiatal hernia.
--- NOTE | ~2020-08-12 | XR_ITS ---
EXAMINATION: XR abdomen obstructive series DATE: 08/16/2020 11:59 INDICATION: Nausea and vomiting. Intermittent abdominal pain TECHNIQUE: Supine and upright views of the abdomen. FINDINGS: No prior studies for comparison. The visualized lung parenchyma is normal.. There is a nonobstructive bowel gas pattern. Gas and stool are seen throughout the colon to the level of the rectum. There is no free air. There is moderate t horacic and lumbar spondylosis with levoscoliosis. There is a large hiatal hernia. Small left pleural effusion. IMPRESSION: 1. No acute abdominal abnormality. 2: Large hiatal hernia. 3: Small left pleural effusion. Reviewed, dictated and finalized at location A. ER BALL FINISHER
--- NOTE | ~2020-08-12 | US_ITS ---
EXAMINATION: US venous doppler [facility] DATE: 08/13/2020 13:50 INDICATION: Lower limb swelling. TECHNIQUE: Grayscale ultrasound images without and with compression and Doppler ultrasound images of the bilateral lower extremity veins were obtained. COMPARISON: Ultrasound 06/07/2020 FINDINGS: The visualized portions of right common femoral vein, profunda (deep) femoral vein, femoral vein, pop liteal vein, peroneal veins, posterior tibial veins, and greater saphenous vein outflow are patent. The visualized portions of left common femoral vein, profunda femoral vein, femoral vein, popliteal v ein, peroneal veins, posterior tibial veins, and greater saphenous vein outflow are patent. IMPRESSION: 1. No deep venous thrombosis. Reviewed, dictated and finalized at location A. ORMANCE IMPROVEMENT DIRECTOR
--- NOTE | ~2020-08-12 | XR_ITS ---
EXAMINATION: XR foot RT 2V EXAM DATE: 08/22/2020 11:46 INDICATION: Right foot bruising. TECHNIQUE: Frontal and lateral projections of the right foot. There is no prior study for compariso n. FINDINGS: There are no acute right foot fractures or dislocations identified. There is no subcutaneo us gas. There is soft tissue swelling over the forefoot and ankle. There are no radiopaque foreign bodies. IMPRESSION: 1. XR foot RT 2V exam without acute osseous findings. 2. Soft tissue swelling. Reviewed, dictated and finalized at location A. OL CAFETERIA COOK HEAD
--- NOTE | 2020-08-12 21:35 | ECG_ITS ---
Measurements Intervals [place] Rate: 101 P: NM: 0 QRS: 2 QRSD: 140 T: 60 QT: 361 QTc: 470 Interpretive Statements ATRIAL FIBRILLATION LEFT BUNDLE BRANCH BLOCK ANTERIOR INFARCT OR DUE TO LBBB BASELINE ARTIFACT- I, II, III, AVR, AVL, AVF, V1 ABNORMAL ECG Electronically Signed On 08-13-2020 7:13:37 DRY MILL OPERATOR by Rick Zapata D.O.
[2020-08-12 21:52] LABS: Basophils Percent Auto 0.2 % (0.2-1.2); Eosinophils Absolute Auto 0.2 K/mm3 (0-0.3); Eosinophils Percent Auto 2.7 % (0-4.4); Hematocrit 35.3 % (37.0-47.0); Hemoglobin 10.4 g/dL (12.0-15.0); Immature Granulocyte Absolute 0.02 K/mm3 (0.00-0.031); Immature Granulocyte Percent A 0.3 % (0-0.5); Lymphocytes Absolute Auto 0.61 K/mm3 (0.9-3.2); Lymphocytes Percent Auto 9.2 % (18.3-44.2); Mean Corpuscular HGB Conc 29.5 g/dl (32-36); Mean Corpuscular Hemoglobin 29.8 pg (26-34); Mean Corpuscular Volume 101.1 fl (80-100); Mean Platelet Volume 11.2 fl (7.4-10.4); Monocytes Absolute Auto 0.6 K/mm3 (0.1-0.6); Monocytes Percent Auto 8.4 % (2.6-8.5); Neutrophils Absolute Auto 5.3 K/mm3 (1.3-6.7); Neutrophils Percent Auto 79.2 % (45.5-73.1); Platelet Count Result 227 k/mm3 (150-375); Red Blood Count 3.49 M/mm3 (4.2-5.4); Red Cell Distribution Width 18.3 % (11.5-14.5); White Blood Count 6.6 K/mm3 (4.5-10.0)
[2020-08-12 21:58] LABS: Ovalocytes 1+ (NORMAL); Platelet Estimate Adequate (Adequate); Stomatocytes 1+ (NORMAL)
[2020-08-12 22:06] LABS: Blood Urea Nitrogen 34 mg/dL (7-17); Calcium 9.3 mg/dL (8.4-10.2); Carbon Dioxide > 40 mmol/L (22-30); Chloride 93 mmol/L (98-107); Estimated CRCL calculation 49 ml/min; Estimated Glomerular Filt Rate 48; Glucose 128 mg/dL (65-105); Potassium 3.7 mmol/L (3.4-5.0); Sodium 142 mmol/L (137-145)
--- NOTE | 2020-08-12 22:14 | ED.GENADULT ---
HPI - General Adult General Chief complaint: Shortness of Breath/Dyspnea Stated complaint: sob/dizzy Time Seen by Provider: 08/12/20 21:52 Source: RN notes reviewed History of Present Illness HPI narrative: Patient presents to emergency department from home via EMS for shortness of breath. Patient states she had increased shortness of breath since awaking this morning. Per the daughter is present patient's been having some increased shortness of breath over the past 1 week. The patient does have a history of COPD and is chronically on 2 to 3 L of nasal cannula at home. Patient states she has had a cough has been nonproductive she denies any fevers or chills chest pain abdominal pain nausea vomiting or any other symptoms states that she did have a diagnosis of COVID-19 on June 28 Related Data Home Medications Medication Instructions Recorded Confirmed amlodipine 5 mg PO DAILY 06/07/20 06/28/20 atorvastatin 80 mg PO DAILY 06/07/20 06/28/20 biotin 1 mg PO DAILY 06/07/20 06/28/20 calcitriol 0.25 mcg PO DAILY 06/07/20 06/28/20 cranberry extract 250 mg PO DAILY 06/07/20 06/28/20 fenofibrate nanocrystallized 145 mg PO DAILY 06/07/20 06/28/20 isosorbide mononitrate 30 mg PO DAILY 06/07/20 06/28/20 pantoprazole 40 mg PO DAILY 06/07/20 06/28/20 pregabalin 200 mg PO BID 06/07/20 06/28/20 torsemide 20 mg PO DAILY 06/07/20 06/28/20 tizanidine 4 mg PO BID PRN 06/19/20 06/28/20 Allergies Allergy/AdvReac Type Severity Reaction Status Date / Time amitriptyline Allergy Unknown Unknown Verified 06/19/20 21:24 chlordiazepoxide Allergy Unknown Unknown Verified 06/19/20 21:24 Review of Systems Review of Systems: Narrative: Gen.: Denies fevers or chills ENT: Denies congestion Respiratory: See HPI CV: Denies chest pain or palpitations GI: Denies abdominal pain nausea, emesis or diarrhea Musculoskeletal: Denies back pain or muscle pain Neuro: Denies numbness, tingling, weakness or focal weakness Skin: Denies rash Except as documented, all other systems reviewed and negative PMF Past Medical History Medical History Anemia Anxiety Chronic kidney disease, stage 3 Baseline creatinine is between 1.3 and 1.50. Chronic obstructive pulmonary disease Chronic pain Chronic respiratory failure with hypoxia Congestive heart failure Echocardiogram on 06/07/2020 showed grade 2 diastolic dysfunction, ejection fraction of 55 to 60%, moderate aortic stenosis, and moderate pulmonary hypertension without wall motion abnormalities. Coronary artery disease Status post angioplasty status stent to the mid LAD on 06/13/2020. Depression Fibromyalgia Gastroesophageal reflux disease Hyperlipidemia Hypertension Insulin dependent type 2 diabetes mellitus Complicated by diabetic peripheral neuropathy. Left bundle branch block Pneumonia Recurrent urinary tract infection Surgical History Surgical History (Updated 06/28/20 @ 22:55 by Arminda Morris PA-C) History of coronary artery stent placement Family History Family History (Updated 06/28/20 @ 22:55 by Arminda Morris PA-C) Mother Acute myocardial infarction Other Diabetes mellitus Hypertension Social History Social History Social History: Surrogate decision maker: Theron Vicente, spouse. Code status: Full code. Smoking status: Former smoker Tobacco type: cigarettes Alcohol intake: never Substance use: never Additional living arrangements comments: Lives in [place] with her spouse, children, and grandchildren. Gender identity (if verbalized by the patient): Female Spiritual care concerns: No Exam Narrative: Exam Narrative: APPEARANCE: No acute distress, nontoxic, resting in bed EYES: EOMI HEENT: Normocephalic, atraumatic, OMM RESPIRATORY: Mild respiratory distress wheezing throughout the bilateral lung mccoy no rhonchi decreased breath
[2020-08-12 22:27] LABS: NT Pro B Type Natriuretic Pept 825 PG/ML (5-100); Troponin I < 0.012 ng/mL (0.000-0.034)
[2020-08-12 23:12] LABS: Glucose Point of Care 109 (65-105)
[2020-08-12 23:17] LABS: Alveolar/Arterial O2 Gradient 33.7 mmHg; Base Excess ABG 12.4 mEq/l (+/-2.0); Carboxyhemoglobin 0.5 % THb (0-2.0); Device NASAL CANNULA; Fractional Inspired Oxygen 26 %; HCO3 ABG 39.9 mEq/l (22.0-26.0); Liters per Minute 1.5 LPM; Methemoglobin ABG 0.3 %THb (0-1.5); Oxygen Content ABG 14.5 %vol (16.0-22.0); Oxygen Saturation ABG 93.3 % (95.0-100.0); PCO2 ABG 68.4 mmHg (35.0-45.0); PO2 ABG 70.6 mmHg (80.0-100.0); PO2 FiO2 Ratio Arterial Blood 2.72 %; Reduced Hemoglobin 7.2 %THb (0-5.0); Site Drawn RIGHT BRACHIAL; Total Hemoglobin 11.2 g/dL (12.0-18.0); pH ABG 7.384 (7.350-7.450)
[2020-08-13] VITALS (21 sets, daily range): BP systolic 121–169; BP diastolic 72–108; PULSE 61–118; RESP 17–28; TEMP 36.2–37; O2SAT 92–99; BMI 40.9
[2020-08-13 00:50] LABS: Add Urine Microscopic? NO; Appearance Urine Clear (Clear); Bilirubin Urine Negative (Negative); Blood Urine Negative (Negative); Color Urine Straw (Yellow); Glucose Urine UA Negative (Negative); Ketones Urine Negative (Negative); Leukocyte Esterase Ur Negative LEU/UL (Negative); Nitrate Urine Negative (Negative); Protein Urine Negative (Negative); Specific Grav Ur 1.011 (1.001-1.035); Urobilinogen Urine Negative mg/dL (<2.0)
[2020-08-13] MEDS: methylPREDNISolone SOD SUCC 125 MG VIAL IV PUSH (01:00)
[2020-08-13] MEDS: IPRATROPIUM BR 0.02% INH SOLN 0.5 MG/2.5 ML VIAL INHALATION ×4 (01:09→20:36)
--- NOTE | 2020-08-13 01:55 | PC.NURSE ---
Patient ambulated using a walker with pulse oximeter attached. Patient's O2 ranged from 86%-89% while ambulating. EDP Jase notified.
[2020-08-13] MEDS: ACETAMINOPHEN 325 MG TABLET 650 MG PO (02:16)
--- NOTE | 2020-08-13 02:19 | PC.NURSE ---
Patient's O2 increased to 4L of O2 after patient ambulated.
--- NOTE | 2020-08-13 03:28 | ADMGEN ---
This patient, Chandni Vicente, was admitted to Medical Room 254-01. Patient/family oriented to hospital policies and general routines including ID bracelet, bed and alarms, visiting hours, pain management, procedures, bathroom and other care routines, personal items, smoking policy, room service/diet, and visiting hours. Information on how to activate the Rapid Response Team has been discussed. Patient/Family are encouraged to report perceived risks to care and to ask questions if they do not understand what they are told or what they should do.
[2020-08-13] MEDS: methylPREDNISolone SOD SUCC 125 MG VIAL 60 MG IV PUSH ×3 (05:58→21:22)
[2020-08-13 06:10] LABS: Troponin I < 0.012 ng/mL (0.000-0.034)
[2020-08-13] MEDS: TORSEMIDE 20 MG TABLET PO (07:10)
[2020-08-13 07:15] LABS: Basophils Percent Auto 0.2 % (0.2-1.2); Eosinophils Percent Auto 0.1 % (0-4.4); Hematocrit 37.5 % (37.0-47.0); Hemoglobin 11.1 g/dL (12.0-15.0); Immature Granulocyte Absolute 0.04 K/mm3 (0.00-0.031); Immature Granulocyte Percent A 0.4 % (0-0.5); Lymphocytes Absolute Auto 0.31 K/mm3 (0.9-3.2); Lymphocytes Percent Auto 2.7 % (18.3-44.2); Mean Corpuscular HGB Conc 29.6 g/dl (32-36); Mean Corpuscular Hemoglobin 29.9 pg (26-34); Mean Corpuscular Volume 101.1 fl (80-100); Mean Platelet Volume 12.1 fl (7.4-10.4); Monocytes Absolute Auto 0.2 K/mm3 (0.1-0.6); Monocytes Percent Auto 1.3 % (2.6-8.5); Neutrophils Absolute Auto 10.8 K/mm3 (1.3-6.7); Neutrophils Percent Auto 95.3 % (45.5-73.1); Platelet Count Result 249 k/mm3 (150-375); Red Blood Count 3.71 M/mm3 (4.2-5.4); Red Cell Distribution Width 18.2 % (11.5-14.5); White Blood Count 11.3 K/mm3 (4.5-10.0)
[2020-08-13] MEDS: ONDANSETRON INJ 4 MG/2 ML VIAL IV PUSH ×2 (07:16→19:04)
[2020-08-13] MEDS: LEVALBUTEROL NEB 1.25 MG/3 ML 0.63 MG INHALATION ×3 (07:17→20:36)
[2020-08-13 07:43] LABS: Anion Gap 9 mmol/L (8-16); Blood Urea Nitrogen 32 mg/dL (7-17); Calcium 9.7 mg/dL (8.4-10.2); Carbon Dioxide 38 mmol/L (22-30); Chloride 95 mmol/L (98-107); Estimated CRCL calculation 41 ml/min; Estimated Glomerular Filt Rate 43; Glucose 148 mg/dL (65-105); Potassium 4.1 mmol/L (3.4-5.0); Sodium 142 mmol/L (137-145)
[2020-08-13 08:10] LABS: Glucose Point of Care 177 (65-105)
[2020-08-13] MEDS: PANTOPRAZOLE 40 MG TABLET PO (08:15)
[2020-08-13] MEDS: CLOPIDOGREL BISULFATE 75 MG TABLET PO (08:15)
[2020-08-13] MEDS: FERROUS SULFATE 324 MG TABLET PO ×2 (08:15→16:09)
[2020-08-13] MEDS: calcitrioL 0.25 MCG CAPSULE PO (08:15)
[2020-08-13] MEDS: FENOFIBRATE NANOCRYSTALLIZED 145 MG TABLET PO (08:15)
[2020-08-13] MEDS: ATORVASTATIN 40 MG TABLET 80 MG PO (08:15)
[2020-08-13] MEDS: MAGNESIUM OXIDE 400 MG TABLET PO (08:15)
[2020-08-13] MEDS: hydrALAZINE HCL 25 MG TABLET PO ×2 (08:15→16:09)
[2020-08-13] MEDS: ISOSORBIDE MONONITRATE 30 MG TAB.ER.24H PO (08:15)
[2020-08-13] MEDS: ASPIRIN 81 MG ENTERIC TABLET PO (08:15)
[2020-08-13] MEDS: amLODIPine BESYLATE 5 MG TABLET PO (08:15)
[2020-08-13] MEDS: PREGABALIN (*CRX) 50 MG CAPSULE 200 MG PO ×2 (08:16→16:11)
[2020-08-13] MEDS: EUCERIN CREAM 120 GM JAR 1 APPLIC TOPICAL (08:16)
[2020-08-13] MEDS: LIDOCAINE 5% PATCH 1 PATCH TRANSDERM (08:16)
[2020-08-13] MEDS: INSULIN GLARGINE (*BKC) 100 UNITS/ML SUB-Q (08:17)
[2020-08-13 08:50] LABS: Troponin I < 0.012 ng/mL (0.000-0.034)
--- NOTE | 2020-08-13 09:25 | PM.IMHP ---
H&P: HPI History of Present Illness Date/Time: 08/13/20 09:25 Chief complaint: Acute respiratory failure with hypoxia, Narrative: Chandni Vicente is a pleasant 80-year-old female hypertension, type 2 diabetes mellitus, COPD with chronic respiratory failure on 3 L nasal cannula, congestive heart failure and several other comorbidities who presented to the emergency department on evening of 08/12 via EMS from home for evaluation of shortness of breath. She is known to the hospitalist service and this will be her 4th admission since May. She was initially admitted from June 07 - after she presented with chest pain found to have non STEMI with left heart catheterization on 06/13 showing a mid LAD lesion which was treated with balloon angioplasty and stent. She was not started on beta-blockers due to ongoing bradycardia. She also had acute on chronic respiratory failure and she responded well to the BiPAP initially but continued to refuse at thereafter. She was hospitalized again from June 19 through with complaints of weakness and shortness of breath in which she was treated for COPD exacerbation. She felt okay on day of discharge and did well for several days up until 06/28 when she was again admitted, but for COVID pneumonia at that time. 08/11, she was in her usual state of health when on morning of 08/12 she woke up at around 6 am with worsened shortness of breath. Throughout the day her SOB had progressively worsened despite taking her home medication regimen. She noted that her daughter gave her two of her Torsemide pills yesterday to see if this would help as she has noticed some increased LE swelling; this did not improve her LE swelling or breathing. She had noted some midsternal chest pain/discomfort that she associated with her increased work of breathing. She has noticed loss of appetite as of recently and some vague, upper abdominal discomfort. She denies subjective f/c, but noted a low grade fever was documented by EMS, which she says resolved by the time she got to the ER. She has had a vague headache. She has noticed a nonproductive cough. While in the ED, Chest CTA demonstrated atelectasis versus pneumonia in RUL and RLL; small pleural effusions noted; no PE appreciated. She was found to be hypoxic on her normal 3L O2 and was placed on 4L. ABG showed chronic hypercapnia. She was admitted for suspected COPD exacerbation/acute on chronic respiratory failure with hypoxia. Today she notices some improvement in her breathing if she is not exerting herself at all. She denies any current f/c/s, cp/palpitatoins, changes in BMs, changes in urine, dysuria, hematuria. She has noticed some lower leg pain the past several days Review of Systems Review of Systems: All systems reviewed & are unremarkable except as noted in HPI and below PMFSH Past Medical History Medical History Anemia Anxiety Chronic kidney disease, stage 3 Baseline creatinine is between 1.3 and 1.50. Chronic obstructive pulmonary disease Chronic pain Chronic respiratory failure with hypoxia Congestive heart failure Echocardiogram on 06/07/2020 showed grade 2 diastolic dysfunction, ejection fraction of 55 to 60%, moderate aortic stenosis, and moderate pulmonary hypertension without wall motion abnormalities. Coronary artery disease Status post angioplasty status stent to the mid LAD on 06/13/2020. Depression Fibromyalgia Gastroesophageal reflux disease Hyperlipidemia Hypertension Insulin dependent type 2 diabetes mellitus Complicated by diabetic peripheral neuropathy. Left bundle branch block Pneumonia Recurrent urinary tract infection Surgical History Surgical History History of coronary artery stent placement Family History Family History Mother Acute myocardial infarction Other Di
[2020-08-13] MEDS: AMOXICILLIN/CLAVULANATE K 875-125 MG TAB 1 TABLET PO ×2 (11:20→21:23)
[2020-08-13] MEDS: ENOXAPARIN 40 MG/0.4 ML SYRINGE SUB-Q (11:20)
[2020-08-13 11:44] LABS: Glucose Point of Care 164 (65-105)
[2020-08-13] MEDS: TIZANIDINE HCL 4 MG TABLET PO (16:07)
[2020-08-13] MEDS: INSULIN ASPART (*BKC) 100 UNITS/ML SUB-Q (16:24)
[2020-08-13 16:25] LABS: Glucose Point of Care 219 (65-105)
[2020-08-14] VITALS (15 sets, daily range): BP systolic 98–114; BP diastolic 55–86; PULSE 63–94; RESP 16–24; TEMP 36.5–36.6; O2SAT 93–99
[2020-08-14] MEDS: LEVALBUTEROL NEB 1.25 MG/3 ML 0.63 MG INHALATION ×4 (03:57→21:45)
[2020-08-14] MEDS: IPRATROPIUM BR 0.02% INH SOLN 0.5 MG/2.5 ML VIAL INHALATION ×4 (03:57→21:45)
[2020-08-14 04:00] LABS: Glucose Point of Care 242 (65-105)
[2020-08-14] MEDS: methylPREDNISolone SOD SUCC 125 MG VIAL 60 MG IV PUSH ×2 (05:54→20:20)
[2020-08-14 06:29] LABS: Blood Urea Nitrogen 50 mg/dL (7-17); Calcium 8.6 mg/dL (8.4-10.2); Carbon Dioxide > 40 mmol/L (22-30); Chloride 92 mmol/L (98-107); Estimated CRCL calculation 38 ml/min; Estimated Glomerular Filt Rate 40; Glucose 211 mg/dL (65-105); Magnesium 2.1 mg/dL (1.6-2.3); Potassium 4.7 mmol/L (3.4-5.0); Sodium 137 mmol/L (137-145)
[2020-08-14 06:39] LABS: Hemoglobin A1C 5.2 % (<5.7)
[2020-08-14 07:18] LABS: Basophils Percent Auto 0.2 % (0.2-1.2); Hematocrit 33.2 % (37.0-47.0); Hemoglobin 9.7 g/dL (12.0-15.0); Immature Granulocyte Absolute 0.04 K/mm3 (0.00-0.031); Immature Granulocyte Percent A 0.8 % (0-0.5); Lymphocytes Absolute Auto 0.22 K/mm3 (0.9-3.2); Lymphocytes Percent Auto 4.2 % (18.3-44.2); Mean Corpuscular HGB Conc 29.2 g/dl (32-36); Mean Corpuscular Hemoglobin 29.5 pg (26-34); Mean Corpuscular Volume 100.9 fl (80-100); Mean Platelet Volume 11.3 fl (7.4-10.4); Monocytes Absolute Auto 0.5 K/mm3 (0.1-0.6); Monocytes Percent Auto 9.4 % (2.6-8.5); Neutrophils Absolute Auto 4.4 K/mm3 (1.3-6.7); Neutrophils Percent Auto 85.4 % (45.5-73.1); Platelet Count Result 239 k/mm3 (150-375); Red Blood Count 3.29 M/mm3 (4.2-5.4); Red Cell Distribution Width 17.7 % (11.5-14.5); White Blood Count 5.2 K/mm3 (4.5-10.0)
[2020-08-14 08:26] LABS: Glucose Point of Care 216 (65-105)
[2020-08-14] MEDS: ISOSORBIDE MONONITRATE 30 MG TAB.ER.24H PO (08:48)
[2020-08-14] MEDS: PANTOPRAZOLE 40 MG TABLET PO (08:48)
[2020-08-14] MEDS: calcitrioL 0.25 MCG CAPSULE PO (08:48)
[2020-08-14] MEDS: FENOFIBRATE NANOCRYSTALLIZED 145 MG TABLET PO (08:48)
[2020-08-14] MEDS: AMOXICILLIN/CLAVULANATE K 875-125 MG TAB 1 TABLET PO ×2 (08:48→20:17)
[2020-08-14] MEDS: ATORVASTATIN 40 MG TABLET 80 MG PO (08:48)
[2020-08-14] MEDS: TORSEMIDE 20 MG TABLET PO (08:49)
[2020-08-14] MEDS: CLOPIDOGREL BISULFATE 75 MG TABLET PO (08:49)
[2020-08-14] MEDS: PREGABALIN (*CRX) 50 MG CAPSULE 200 MG PO ×2 (08:49→17:42)
[2020-08-14] MEDS: ASPIRIN 81 MG ENTERIC TABLET PO (08:50)
[2020-08-14] MEDS: FERROUS SULFATE 324 MG TABLET PO ×2 (08:50→17:42)
[2020-08-14] MEDS: MAGNESIUM OXIDE 400 MG TABLET PO (08:50)
[2020-08-14] MEDS: ENOXAPARIN 40 MG/0.4 ML SYRINGE SUB-Q (08:51)
[2020-08-14] MEDS: LIDOCAINE 5% PATCH 1 PATCH TRANSDERM (08:51)
[2020-08-14] MEDS: ONDANSETRON INJ 4 MG/2 ML VIAL IV PUSH (08:54)
[2020-08-14] MEDS: INSULIN GLARGINE (*BKC) 100 UNITS/ML 10 UNITS SUB-Q (08:55)
[2020-08-14] MEDS: INSULIN ASPART (*BKC) 100 UNITS/ML SUB-Q ×3 (08:55→17:43)
[2020-08-14] MEDS: guaiFENesin 12 HR 600 MG TABCR PO ×2 (09:02→20:17)
[2020-08-14] MEDS: EUCERIN CREAM 120 GM JAR 1 APPLIC TOPICAL (09:02)
--- NOTE | 2020-08-14 11:28 | P.PNIM_ITS ---
Progress Note: A&P Assessment and Plan (1) COPD (chronic obstructive pulmonary disease): Code(s): J44.9 - Chronic obstructive pulmonary disease, unspecified Status: Acute Assessment and Plan: Likely acute exacerbation as etiology of SOB. Lung exam shows wheezing and coarse breath sounds * Will decrease freq of Solumedrol 60 mg to Q12hr IV for now * Neb treatments Q6hr * Continue home meds * Albuterol rescue inhaler PRN * IS/Cornet PEP therapy ordered * Continue Augmentin Q12hr through 08/17 * Monitor for improvement * Wean O2 to home requirement as tolerated * Will reinitiate CPAP as she has had CPAP for suspected sleep apnea on a previous stay but has yet to perform her outpatient sleep study (2) Acute respiratory failure with hypoxia: Code(s): J96.01 - Acute respiratory failure with hypoxia Status: Acute Assessment and Plan: Acute on chronic respiratory failure with hypoxia and chronic hypercapnia. COPD exacerbation felt to be most likely. Patient started on systemic steroids and neb treatments from ER. * Continue treatment as detailed above * Wean O2 to home O2 requirements as tolerated * Monitor * CPAP as noted above (3) Chronic kidney disease, stage 3: Qualifiers: Chronic kidney disease stage 3 subtype: unspecified whether 3a or 3b Qualified Code(s): N18.30 - Chronic kidney disease, stage 3 unspecified Code(s): N18.30 - Chronic kidney disease, stage 3 unspecified Status: Acute Assessment and Plan: Appears to be at baseline * Monitor renal function during stay (4) Insulin dependent type 2 diabetes mellitus: Code(s): E11.9 - Type 2 diabetes mellitus without complications; Z79.4 - vermin exterminator (current) use of insulin Status: Acute Assessment and Plan: BGL 200s; elevated likely from steroids. A1c 5.2 * Accuchecks ACHS, hypoglycemia protocol, correctional insulin, Low sodium diet * Will resume her home 10 u Long acting insulin * Monitor (5) CAD (coronary artery disease): Qualifiers: Coronary Disease-Associated Artery/Lesion type: [place] artery [place] vs. transplanted heart: [place] heart Associated angina: without angina Qualified Code(s): I25.10 - Atherosclerotic heart disease of [place] coronary artery without angina pectoris Code(s): I25.10 - Atherosclerotic heart disease of [place] coronary artery without angina pectoris Status: Acute Assessment and Plan: No acute issues at this moment * Monitor * Continue home meds (6) CHF (congestive heart failure): Qualifiers: Heart failure type: diastolic Heart failure chronicity: acute on chronic Qualified Code(s): I50.33 - Acute on chronic diastolic (congestive) heart failure Code(s): I50.9 - Heart failure, unspecified Status: Acute Assessment and Plan: Patient has LE swelling. BNP elevated but better then previous stays. Possible component to SOB, but patient states she is compliant with diet and home meds * Continue home regimen * Monitor * Consider additional diuretics if increased swelling/no improvement in respiratory status Subjective Date/time seen: 08/14/20 11:28 Interval history: Patient is a 80 yo F with history of hypertension, type 2 diabetes mellitus, COPD with chronic respiratory failure on 3 L nasal cannula, congestive heart failure and severa
--- NOTE | 2020-08-14 11:28 | PM.IMPN ---
Progress Note: A&P Assessment and Plan (1) COPD (chronic obstructive pulmonary disease): Code(s): J44.9 - Chronic obstructive pulmonary disease, unspecified Status: Acute Assessment and Plan: Likely acute exacerbation as etiology of SOB. Lung exam shows wheezing and coarse breath sounds Will decrease freq of Solumedrol 60 mg to Q12hr IV for now Neb treatments Q6hr Continue home meds Albuterol rescue inhaler PRN IS/Cornet PEP therapy ordered Continue Augmentin Q12hr through 08/17 Monitor for improvement Wean O2 to home requirement as tolerated Will reinitiate CPAP as she has had CPAP for suspected sleep apnea on a previous stay but has yet to perform her outpatient sleep study (2) Acute respiratory failure with hypoxia: Code(s): J96.01 - Acute respiratory failure with hypoxia Status: Acute Assessment and Plan: Acute on chronic respiratory failure with hypoxia and chronic hypercapnia. COPD exacerbation felt to be most likely. Patient started on systemic steroids and neb treatments from ER. Continue treatment as detailed above Wean O2 to home O2 requirements as tolerated Monitor CPAP as noted above (3) Chronic kidney disease, stage 3: Qualifiers: Chronic kidney disease stage 3 subtype: unspecified whether 3a or 3b Qualified Code(s): N18.30 - Chronic kidney disease, stage 3 unspecified Code(s): N18.30 - Chronic kidney disease, stage 3 unspecified Status: Acute Assessment and Plan: Appears to be at baseline Monitor renal function during stay (4) Insulin dependent type 2 diabetes mellitus: Code(s): E11.9 - Type 2 diabetes mellitus without complications; Z79.4 - psychiatry teacher (current) use of insulin Status: Acute Assessment and Plan: BGL 200s; elevated likely from steroids. A1c 5.2 Accuchecks ACHS, hypoglycemia protocol, correctional insulin, Low sodium diet Will resume her home 10 u Long acting insulin Monitor (5) CAD (coronary artery disease): Qualifiers: Coronary Disease-Associated Artery/Lesion type: [place] artery [place] vs. transplanted heart: [place] heart Associated angina: without angina Qualified Code(s): I25.10 - Atherosclerotic heart disease of [place] coronary artery without angina pectoris Code(s): I25.10 - Atherosclerotic heart disease of [place] coronary artery without angina pectoris Status: Acute Assessment and Plan: No acute issues at this moment Monitor Continue home meds (6) CHF (congestive heart failure): Qualifiers: Heart failure type: diastolic Heart failure chronicity: acute on chronic Qualified Code(s): I50.33 - Acute on chronic diastolic (congestive) heart failure Code(s): I50.9 - Heart failure, unspecified Status: Acute Assessment and Plan: Patient has LE swelling. BNP elevated but better then previous stays. Possible component to SOB, but patient states she is compliant with diet and home meds Continue home regimen Monitor Consider additional diuretics if increased swelling/no improvement in respiratory status Subjective Date/time seen: 08/14/20 11:28 Interval history: Patient is a 80 yo F with history of hypertension, type 2 diabetes mellitus, COPD with chronic respiratory failure on 3 L nasal cannula, congestive heart failure and several other comorbidities who is seen in follow up for COPD exacerbation and acute on chronic respiratory failure with hypoxia and chronic hypercapnia. Patient states she feels somewhat better today. She notes that she had some n/v last night which improved with her antiemetics. Her breathing has somewhat improved today and she noted that she was less SOB while during her therapy sess
[2020-08-14 11:58] LABS: Glucose Point of Care 276 (65-105)
[2020-08-14 11:59] LABS: Glucose Point of Care 248 (65-105)
[2020-08-14] MEDS: TIZANIDINE HCL 4 MG TABLET PO (15:01)
[2020-08-14] MEDS: HYDROcodone/acetaminophen (*CRX) 5-325 MG TABLET 1 TAB PO (15:03)
[2020-08-14 17:33] LABS: Glucose Point of Care 231 (65-105)
[2020-08-14 20:24] LABS: Glucose Point of Care 250 (65-105)
[2020-08-15] VITALS (11 sets, daily range): BP systolic 100–127; BP diastolic 48–74; PULSE 68–89; RESP 18–23; TEMP 36.2–36.8; O2SAT 94–99
[2020-08-15] MEDS: IPRATROPIUM BR 0.02% INH SOLN 0.5 MG/2.5 ML VIAL INHALATION ×3 (02:12→21:37)
[2020-08-15] MEDS: LEVALBUTEROL NEB 1.25 MG/3 ML 0.63 MG INHALATION ×3 (02:12→21:38)
[2020-08-15] MEDS: HYDROcodone/acetaminophen (*CRX) 5-325 MG TABLET 1 TAB PO ×2 (02:37→09:17)
[2020-08-15] MEDS: TIZANIDINE HCL 4 MG TABLET PO ×3 (02:38→16:35)
[2020-08-15 05:11] LABS: Basophils Percent Auto 0.2 % (0.2-1.2); Eosinophils Percent Auto 0.2 % (0-4.4); Hematocrit 30.2 % (37.0-47.0); Hemoglobin 8.6 g/dL (12.0-15.0); Immature Granulocyte Absolute 0.04 K/mm3 (0.00-0.031); Immature Granulocyte Percent A 0.6 % (0-0.5); Lymphocytes Percent Auto 9.2 % (18.3-44.2); Mean Corpuscular HGB Conc 28.5 g/dl (32-36); Mean Corpuscular Hemoglobin 29.2 pg (26-34); Mean Corpuscular Volume 102.4 fl (80-100); Mean Platelet Volume 11.4 fl (7.4-10.4); Monocytes Absolute Auto 0.8 K/mm3 (0.1-0.6); Monocytes Percent Auto 11.6 % (2.6-8.5); Neutrophils Absolute Auto 5.1 K/mm3 (1.3-6.7); Neutrophils Percent Auto 78.2 % (45.5-73.1); Platelet Count Result 198 k/mm3 (150-375); Red Blood Count 2.95 M/mm3 (4.2-5.4); Red Cell Distribution Width 17.7 % (11.5-14.5); White Blood Count 6.5 K/mm3 (4.5-10.0)
[2020-08-15 05:54] LABS: Blood Urea Nitrogen 61 mg/dL (7-17); Calcium 8.4 mg/dL (8.4-10.2); Carbon Dioxide > 40 mmol/L (22-30); Chloride 92 mmol/L (98-107); Estimated CRCL calculation 30 ml/min; Estimated Glomerular Filt Rate 29; Glucose 136 mg/dL (65-105); Magnesium 2.4 mg/dL (1.6-2.3); Potassium 4.5 mmol/L (3.4-5.0); Sodium 137 mmol/L (137-145)
[2020-08-15 06:22] LABS: Folic Acid 16.8 ng/mL (2.76->20)
[2020-08-15 07:44] LABS: Hypochromasia 2+ (NORMAL); Platelet Estimate Adequate (Adequate); Stomatocytes 1+ (NORMAL)
[2020-08-15 09:15] LABS: Glucose Point of Care 103 (65-105)
[2020-08-15] MEDS: FERROUS SULFATE 324 MG TABLET PO ×2 (09:18→16:34)
[2020-08-15] MEDS: ASPIRIN 81 MG ENTERIC TABLET PO (09:18)
[2020-08-15] MEDS: ATORVASTATIN 40 MG TABLET 80 MG PO (09:18)
[2020-08-15] MEDS: FENOFIBRATE NANOCRYSTALLIZED 145 MG TABLET PO (09:18)
[2020-08-15] MEDS: CLOPIDOGREL BISULFATE 75 MG TABLET PO (09:19)
[2020-08-15] MEDS: MAGNESIUM OXIDE 400 MG TABLET PO (09:19)
[2020-08-15] MEDS: guaiFENesin 12 HR 600 MG TABCR PO ×2 (09:19→21:04)
[2020-08-15] MEDS: PANTOPRAZOLE 40 MG TABLET PO (09:19)
[2020-08-15] MEDS: TORSEMIDE 20 MG TABLET PO (09:19)
[2020-08-15] MEDS: ISOSORBIDE MONONITRATE 30 MG TAB.ER.24H PO (09:19)
[2020-08-15] MEDS: AMOXICILLIN/CLAVULANATE K 875-125 MG TAB 1 TABLET PO ×2 (09:19→21:04)
[2020-08-15] MEDS: calcitrioL 0.25 MCG CAPSULE PO (09:20)
[2020-08-15] MEDS: ENOXAPARIN 40 MG/0.4 ML SYRINGE SUB-Q (09:20)
[2020-08-15] MEDS: methylPREDNISolone SOD SUCC 125 MG VIAL 60 MG IV PUSH (09:21)
[2020-08-15] MEDS: LIDOCAINE 5% PATCH 1 PATCH TRANSDERM (09:21)
[2020-08-15] MEDS: EUCERIN CREAM 120 GM JAR 1 APPLIC TOPICAL (09:22)
[2020-08-15] MEDS: INSULIN GLARGINE (*BKC) 100 UNITS/ML 10 UNITS SUB-Q (09:23)
[2020-08-15] MEDS: PREGABALIN (*CRX) 50 MG CAPSULE 200 MG PO ×2 (10:03→16:34)
[2020-08-15 11:29] LABS: Glucose Point of Care 213 (65-105)
[2020-08-15] MEDS: INSULIN ASPART (*BKC) 100 UNITS/ML SUB-Q ×2 (12:06→18:25)
--- NOTE | 2020-08-15 14:54 | P.PNIM_ITS ---
Progress Note: A&P Assessment and Plan (1) COPD (chronic obstructive pulmonary disease): Code(s): J44.9 - Chronic obstructive pulmonary disease, unspecified Status: Acute Assessment and Plan: Likely acute exacerbation as etiology of SOB. Lung exam shows wheezing, but slight improved. Nursing has weaned patient to 2L which she has maintained adequate sats since then * Will decrease freq of Solumedrol 60 mg to Q24hr IV for now * Neb treatments Q6hr * Continue home meds * Albuterol rescue inhaler PRN * IS/Cornet PEP therapy ordered * Continue Augmentin Q12hr through 08/17 * Monitor for improvement * Wean O2 to home requirement as tolerated * Will reinitiate CPAP/BiPAP as she has had CPAP/BiPAP for suspected sleep apnea on a previous stay but has yet to perform her outpatient sleep study (2) Acute respiratory failure with hypoxia: Code(s): J96.01 - Acute respiratory failure with hypoxia Status: Acute Assessment and Plan: Acute on chronic respiratory failure with hypoxia and chronic hypercapnia. COPD exacerbation felt to be most likely. Patient started on systemic steroids and neb treatments from ER. * Continue treatment as detailed above * Wean O2 to home O2 requirements as tolerated; maintain 90-93% O2 saturations * Monitor * CPAP as noted above (3) Chronic kidney disease, stage 3: Qualifiers: Chronic kidney disease stage 3 subtype: unspecified whether 3a or 3b Qualified Code(s): N18.30 - Chronic kidney disease, stage 3 unspecified Code(s): N18.30 - Chronic kidney disease, stage 3 unspecified Status: Acute Assessment and Plan: Appears to be at baseline, but slightly increased since yesterday * Monitor renal function during stay (4) Insulin dependent type 2 diabetes mellitus: Code(s): E11.9 - Type 2 diabetes mellitus without complications; Z79.4 - emt intermediate (current) use of insulin Status: Acute Assessment and Plan: BGL 200s; elevated likely from steroids. A1c 5.2 * Accuchecks ACHS, hypoglycemia protocol, correctional insulin, Low sodium diet * Will continue home 10 u Long acting insulin * Monitor (5) CAD (coronary artery disease): Qualifiers: Coronary Disease-Associated Artery/Lesion type: [place] artery [place] vs. transplanted heart: [place] heart Associated angina: without angina Qualified Code(s): I25.10 - Atherosclerotic heart disease of [place] coronary artery without angina pectoris Code(s): I25.10 - Atherosclerotic heart disease of [place] coronary artery without angina pectoris Status: Acute Assessment and Plan: No acute issues * Monitor * Continue home meds (6) CHF (congestive heart failure): Qualifiers: Heart failure type: diastolic Heart failure chronicity: acute on chronic Qualified Code(s): I50.33 - Acute on chronic diastolic (congestive) heart failure Code(s): I50.9 - Heart failure, unspecified Status: Acute Assessment and Plan: Patient has LE swelling. BNP elevated but better then previous stays. Possible component to SOB, but patient compliant with diet and home meds * Continue home regimen * Monitor * Consider additional diuretics if increased swelling/no improvement in respiratory status (7) Gastroesophageal reflux disease: Code(s): K21.9 - Gastro-esophageal reflux disease without esophagitis
--- NOTE | 2020-08-15 14:54 | PM.IMPN ---
Progress Note: A&P Assessment and Plan (1) COPD (chronic obstructive pulmonary disease): Code(s): J44.9 - Chronic obstructive pulmonary disease, unspecified Status: Acute Assessment and Plan: Likely acute exacerbation as etiology of SOB. Lung exam shows wheezing, but slight improved. Nursing has weaned patient to 2L which she has maintained adequate sats since then Will decrease freq of Solumedrol 60 mg to Q24hr IV for now Neb treatments Q6hr Continue home meds Albuterol rescue inhaler PRN IS/Cornet PEP therapy ordered Continue Augmentin Q12hr through 08/17 Monitor for improvement Wean O2 to home requirement as tolerated Will reinitiate CPAP/BiPAP as she has had CPAP/BiPAP for suspected sleep apnea on a previous stay but has yet to perform her outpatient sleep study (2) Acute respiratory failure with hypoxia: Code(s): J96.01 - Acute respiratory failure with hypoxia Status: Acute Assessment and Plan: Acute on chronic respiratory failure with hypoxia and chronic hypercapnia. COPD exacerbation felt to be most likely. Patient started on systemic steroids and neb treatments from ER. Continue treatment as detailed above Wean O2 to home O2 requirements as tolerated; maintain 90-93% O2 saturations Monitor CPAP as noted above (3) Chronic kidney disease, stage 3: Qualifiers: Chronic kidney disease stage 3 subtype: unspecified whether 3a or 3b Qualified Code(s): N18.30 - Chronic kidney disease, stage 3 unspecified Code(s): N18.30 - Chronic kidney disease, stage 3 unspecified Status: Acute Assessment and Plan: Appears to be at baseline, but slightly increased since yesterday Monitor renal function during stay (4) Insulin dependent type 2 diabetes mellitus: Code(s): E11.9 - Type 2 diabetes mellitus without complications; Z79.4 - penitentiary (current) use of insulin Status: Acute Assessment and Plan: BGL 200s; elevated likely from steroids. A1c 5.2 Accuchecks ACHS, hypoglycemia protocol, correctional insulin, Low sodium diet Will continue home 10 u Long acting insulin Monitor (5) CAD (coronary artery disease): Qualifiers: Coronary Disease-Associated Artery/Lesion type: [place] artery [place] vs. transplanted heart: [place] heart Associated angina: without angina Qualified Code(s): I25.10 - Atherosclerotic heart disease of [place] coronary artery without angina pectoris Code(s): I25.10 - Atherosclerotic heart disease of [place] coronary artery without angina pectoris Status: Acute Assessment and Plan: No acute issues Monitor Continue home meds (6) CHF (congestive heart failure): Qualifiers: Heart failure type: diastolic Heart failure chronicity: acute on chronic Qualified Code(s): I50.33 - Acute on chronic diastolic (congestive) heart failure Code(s): I50.9 - Heart failure, unspecified Status: Acute Assessment and Plan: Patient has LE swelling. BNP elevated but better then previous stays. Possible component to SOB, but patient compliant with diet and home meds Continue home regimen Monitor Consider additional diuretics if increased swelling/no improvement in respiratory status (7) Gastroesophageal reflux disease: Code(s): K21.9 - Gastro-esophageal reflux disease without esophagitis Status: Inactive Assessment and Plan: Suspect her chest burning might be related to her Hiatal hernia and GERD as this seems associated to her meals Continue PPI Will add Tums PRN Monitor Subjective Date/time seen: 08/15/20 14:54 Interval history: Patient is a 80 yo F with history of hypertension, type 2 diabe
[2020-08-15] MEDS: CALCIUM CARBONATE (TUMS) 500 MG (200 MG ELEMENTAL) PO (16:33)
[2020-08-15] MEDS: ACETAMINOPHEN 325 MG TABLET 650 MG PO (16:34)
[2020-08-15 18:26] LABS: Glucose Point of Care 228 (65-105)
[2020-08-15 21:50] LABS: Glucose Point of Care 254 (65-105)
[2020-08-16] VITALS (20 sets, daily range): BP systolic 118–153; BP diastolic 65–98; PULSE 50–106; RESP 18–24; TEMP 36.1–36.5; O2SAT 91–100
[2020-08-16] MEDS: NITROGLYCERIN SL 0.4 MG TABLET SUBLINGUAL (02:15)
--- NOTE | 2020-08-16 02:16 | ECG_ITS ---
Measurements Intervals [place] Rate: 78 P: [place]: 0 QRS: -1 QRSD: 154 T: -15 QT: 405 QTc: 461 Interpretive Statements ATRIAL FIBRILLATION LEFT BUNDLE BRANCH BLOCK ANTEROSEPTAL INFARCT OR DUE TO LBBB BASELINE ARTIFACT- I, III, AVR, AVL, AVF ABNORMAL ECG Electronically Signed On 08-16-2020 6:42:54 MACHINE BUILDER by Rick Zapata D.O.
[2020-08-16] MEDS: IPRATROPIUM BR 0.02% INH SOLN 0.5 MG/2.5 ML VIAL INHALATION ×4 (03:13→21:18)
[2020-08-16] MEDS: LEVALBUTEROL NEB 1.25 MG/3 ML 0.63 MG INHALATION ×4 (03:13→21:17)
[2020-08-16] MEDS: ACETAMINOPHEN 325 MG TABLET 650 MG PO ×2 (04:06→20:54)
[2020-08-16] MEDS: TIZANIDINE HCL 4 MG TABLET PO ×2 (04:11→16:49)
[2020-08-16 06:27] LABS: Basophils Percent Auto 0.2 % (0.2-1.2); Eosinophils Percent Auto 0.2 % (0-4.4); Hematocrit 29.2 % (37.0-47.0); Hemoglobin 8.6 g/dL (12.0-15.0); Immature Granulocyte Absolute 0.03 K/mm3 (0.00-0.031); Immature Granulocyte Percent A 0.6 % (0-0.5); Lymphocytes Absolute Auto 0.66 K/mm3 (0.9-3.2); Lymphocytes Percent Auto 13.2 % (18.3-44.2); Mean Corpuscular HGB Conc 29.5 g/dl (32-36); Mean Corpuscular Hemoglobin 29.8 pg (26-34); Mean Platelet Volume 11.6 fl (7.4-10.4); Monocytes Absolute Auto 0.6 K/mm3 (0.1-0.6); Monocytes Percent Auto 12.8 % (2.6-8.5); Neutrophils Absolute Auto 3.7 K/mm3 (1.3-6.7); Platelet Count Result 181 k/mm3 (150-375); Red Blood Count 2.89 M/mm3 (4.2-5.4); Red Cell Distribution Width 17.2 % (11.5-14.5)
[2020-08-16 06:47] LABS: Blood Urea Nitrogen 69 mg/dL (7-17); Calcium 8.7 mg/dL (8.4-10.2); Carbon Dioxide > 40 mmol/L (22-30); Chloride 93 mmol/L (98-107); Estimated CRCL calculation 38 ml/min; Estimated Glomerular Filt Rate 40; Glucose 137 mg/dL (65-105); Magnesium 2.6 mg/dL (1.6-2.3); Potassium 4.3 mmol/L (3.4-5.0); Sodium 137 mmol/L (137-145)
[2020-08-16 06:49] LABS: Troponin I 0.022 ng/mL (0.000-0.034)
[2020-08-16 06:52] LABS: Platelet Estimate Adequate (Adequate)
[2020-08-16 06:53] LABS: Anisocytosis 1+ (NORMAL); Hypochromasia 1+ (NORMAL); Ovalocytes 1+ (NORMAL)
[2020-08-16 08:07] LABS: Glucose Point of Care 135 (65-105)
--- NOTE | 2020-08-16 08:50 | PM.CNCAR ---
Assessment and Plan Assessment and plan (1) Acute respiratory failure with hypoxia: Code(s): J96.01 - Acute respiratory failure with hypoxia Status: Acute Assessment and Plan: pt with COVID pneumonia antibiotics and steroids per PC (2) COPD (chronic obstructive pulmonary disease): Code(s): J44.9 - Chronic obstructive pulmonary disease, unspecified Status: Acute (3) Chronic kidney disease, stage 3: Qualifiers: Chronic kidney disease stage 3 subtype: unspecified whether 3a or 3b Qualified Code(s): N18.30 - Chronic kidney disease, stage 3 unspecified Code(s): N18.30 - Chronic kidney disease, stage 3 unspecified Status: Acute (4) COVID-19: Code(s): U07.1 - COVID-19 Status: Acute (5) Type 2 diabetes mellitus: Code(s): E11.9 - Type 2 diabetes mellitus without complications Status: Acute (6) Pneumonia: Code(s): J18.9 - Pneumonia, unspecified organism Status: Acute (7) Chest discomfort: Code(s): R07.89 - Other chest pain Status: Acute Assessment and Plan: pt does have sometimes chest discomfort when coughing CE negative no acute EKG changes Recent ECHO showed normal LV systolic function (LVEF 55-60%) cont medical management including adjustment of BP meds (8) CAD (coronary artery disease): Qualifiers: Associated angina: without angina Coronary Disease-Associated Artery/Lesion type: [place] artery [place] vs. transplanted heart: [place] heart Qualified Code(s): I25.10 - Atherosclerotic heart disease of [place] coronary artery without angina pectoris Code(s): I25.10 - Atherosclerotic heart disease of [place] coronary artery without angina pectoris Status: Acute Assessment and Plan: s/p PCI 2 months ago cont ASA and Plavix (9) Afib: Code(s): I48.91 - Unspecified atrial fibrillation Status: Acute Assessment and Plan: pt with chronic AFIB HR well controlled (10) Anemia: Qualifiers: Anemia type: other cause Other causes of anemia: other cause, not classified Qualified Code(s): D64.89 - Other specified anemias Code(s): D64.9 - Anemia, unspecified Status: Acute Assessment and Plan: Hgb 8.6 (11) HTN (hypertension): Code(s): I10 - Essential (primary) hypertension Status: Acute Assessment and Plan: not optoimally controlled Will adjust meds goal to keep BP < 150/90 cont low Na diet Thank you for consult. Junaid ibanez. History of Present Illness History of Present Illness Consult date/time: 08/16/20 Ms. Vicente is a pleasant 80 y/o female with PMH of COVID, HTN, CAD, DM, HTN who presented to [facility] due to SOB. Pt had fever and dry cough before current admission. She was found to be hypoxic. Her CXR showed RUL and RLL infiltrates. Chest CT was negative for pulmonary embolism and was found to have hiatal hernia. Pt complains for cough which is sometimes associate with burning sensation in chest. BP was found to be sometimes elevated (ER 187/70, today 153/98).. Pt is currently 4 l oxygen by [place] at [facility] admitted since 06/18. She is known to have chronic COPD on home oxygen. Pt does have CRI as well. Review of records showed that pt was admitted in May 2020 and at that time underwent cath as well as PCI/stenting of LAD with ADITI. Her recent ECHO showed normal LV systolic function (LVEF 55-60%) and moderate pulmonary HTN. Case was reviewed. d/w pt's nurse. Reason For Visit: Acute respiratory failure with hypoxia, [facility] Past Medical History Medical History (Updated 08/16/20 @ 09:25 by James Quiros MD) Anemia Anxiety Chronic kidney disease, stage 3 Baseline creatinine is between 1.3 and 1.50. Chronic obstructive pulmonary disease Chronic pain Chronic respiratory failure with hypoxia Congestive heart failure Echocardiogram on 06/07/2020 showed grade 2 diastolic dysfunction, eje
[2020-08-16] MEDS: methylPREDNISolone SOD SUCC 125 MG VIAL 60 MG IV PUSH (09:24)
[2020-08-16] MEDS: LIDOCAINE 5% PATCH 1 PATCH TRANSDERM (09:24)
[2020-08-16] MEDS: ONDANSETRON INJ 4 MG/2 ML VIAL IV PUSH (09:24)
[2020-08-16] MEDS: ENOXAPARIN 40 MG/0.4 ML SYRINGE SUB-Q (09:25)
[2020-08-16] MEDS: ASPIRIN 81 MG ENTERIC TABLET PO (10:04)
[2020-08-16] MEDS: ATORVASTATIN 40 MG TABLET 80 MG PO (10:04)
[2020-08-16] MEDS: AMOXICILLIN/CLAVULANATE K 875-125 MG TAB 1 TABLET PO ×2 (10:04→20:56)
[2020-08-16] MEDS: guaiFENesin 12 HR 600 MG TABCR PO ×2 (10:04→20:56)
[2020-08-16] MEDS: TORSEMIDE 20 MG TABLET PO ×2 (10:04→13:35)
[2020-08-16] MEDS: FENOFIBRATE NANOCRYSTALLIZED 145 MG TABLET PO (10:04)
[2020-08-16] MEDS: calcitrioL 0.25 MCG CAPSULE PO (10:05)
[2020-08-16] MEDS: amLODIPine BESYLATE 5 MG TABLET PO (10:05)
[2020-08-16] MEDS: ISOSORBIDE MONONITRATE 30 MG TAB.ER.24H PO (10:05)
[2020-08-16] MEDS: PANTOPRAZOLE 40 MG TABLET PO ×2 (10:05→20:56)
[2020-08-16] MEDS: MAGNESIUM OXIDE 400 MG TABLET PO (10:05)
[2020-08-16] MEDS: CLOPIDOGREL BISULFATE 75 MG TABLET PO (10:05)
[2020-08-16] MEDS: FERROUS SULFATE 324 MG TABLET PO ×2 (10:05→16:49)
[2020-08-16] MEDS: hydrALAZINE HCL 25 MG TABLET PO ×2 (10:05→16:49)
[2020-08-16] MEDS: EUCERIN CREAM 120 GM JAR 1 APPLIC TOPICAL (10:06)
[2020-08-16] MEDS: PREGABALIN (*CRX) 50 MG CAPSULE 200 MG PO ×2 (10:11→16:49)
[2020-08-16] MEDS: HYDROcodone/acetaminophen (*CRX) 5-325 MG TABLET 1 TAB PO (10:11)
[2020-08-16] MEDS: INSULIN GLARGINE (*BKC) 100 UNITS/ML 10 UNITS SUB-Q (10:12)
--- NOTE | 2020-08-16 11:09 | P.PNIM_ITS ---
Progress Note: A&P Assessment and Plan (1) COPD (chronic obstructive pulmonary disease): Code(s): J44.9 - Chronic obstructive pulmonary disease, unspecified Status: Acute Assessment and Plan: Likely acute exacerbation as etiology of SOB. Lung exam shows improvement today. 3L O2 currently. * Will transition to PO prednisone taper tomorrow; 40 mg to start, taper by 10 mg every 3 days * Neb treatments Q6hr * Continue home meds * Albuterol rescue inhaler PRN * IS/Cornet PEP therapy ordered * Continue Augmentin Q12hr through 08/17 * Monitor for improvement * Wean O2 to home requirement as tolerated * Will continue CPAP/BiPAP as she has had CPAP/BiPAP for suspected sleep apnea on a previous stay but has yet to perform her outpatient sleep study (2) Acute respiratory failure with hypoxia: Code(s): J96.01 - Acute respiratory failure with hypoxia Status: Acute Assessment and Plan: Acute on chronic respiratory failure with hypoxia and chronic hypercapnia. COPD exacerbation felt to be most likely. Has a recent history of COVID pneumonia as well. Patient started on systemic steroids and neb treatments from ER. * Continue treatment as detailed above * Wean O2 to home O2 requirements as tolerated; maintain 90-93% O2 saturations * Monitor * BiPAP/CPAP as noted above (3) Chronic kidney disease, stage 3: Qualifiers: Chronic kidney disease stage 3 subtype: unspecified whether 3a or 3b Qualified Code(s): N18.30 - Chronic kidney disease, stage 3 unspecified Code(s): N18.30 - Chronic kidney disease, stage 3 unspecified Status: Acute Assessment and Plan: Appears to be at baseline, but slightly increased since yesterday. BUN slowly increasing since admission; possible etiology from vomiting? * Monitor renal function during stay (4) Insulin dependent type 2 diabetes mellitus: Code(s): E11.9 - Type 2 diabetes mellitus without complications; Z79.4 - exterminator helper termite (current) use of insulin Status: Acute Assessment and Plan: BGL 100s; elevated likely from steroids. A1c 5.2 * Accuchecks ACHS, hypoglycemia protocol, correctional insulin, Low sodium diet * Will continue home 10 u Long acting insulin * Monitor (5) CAD (coronary artery disease): Qualifiers: Coronary Disease-Associated Artery/Lesion type: [place] artery [place] vs. transplanted heart: [place] heart Associated angina: without angina Qualified Code(s): I25.10 - Atherosclerotic heart disease of [place] coronary artery without angina pectoris Code(s): I25.10 - Atherosclerotic heart disease of [place] coronary artery without angina pectoris Status: Acute Assessment and Plan: Patient apparently had chest pain overnight. Troponins drawn and negative x 2. Cardiology consulted by bead trimmer and appreciate recommendations * Monitor * Continue home meds (6) CHF (congestive heart failure): Qualifiers: Heart failure type: diastolic Heart failure chronicity: acute on chronic Qualified Code(s): I50.33 - Acute on chronic diastolic (congestive) heart failure Code(s): I50.9 - Heart failure, unspecified Status: Acute Assessment and Plan: Patient has LE swelling. BNP elevated but better then previous stays. Possible component to SOB, but patient compliant with diet and home meds * Continue home regimen * Monitor * Consider additional diuretics if increased swel
--- NOTE | 2020-08-16 11:09 | PM.IMPN ---
Progress Note: A&P Assessment and Plan (1) COPD (chronic obstructive pulmonary disease): Code(s): J44.9 - Chronic obstructive pulmonary disease, unspecified Status: Acute Assessment and Plan: Likely acute exacerbation as etiology of SOB. Lung exam shows improvement today. 3L O2 currently. Will transition to PO prednisone taper tomorrow; 40 mg to start, taper by 10 mg every 3 days Neb treatments Q6hr Continue home meds Albuterol rescue inhaler PRN IS/Cornet PEP therapy ordered Continue Augmentin Q12hr through 08/17 Monitor for improvement Wean O2 to home requirement as tolerated Will continue CPAP/BiPAP as she has had CPAP/BiPAP for suspected sleep apnea on a previous stay but has yet to perform her outpatient sleep study (2) Acute respiratory failure with hypoxia: Code(s): J96.01 - Acute respiratory failure with hypoxia Status: Acute Assessment and Plan: Acute on chronic respiratory failure with hypoxia and chronic hypercapnia. COPD exacerbation felt to be most likely. Has a recent history of COVID pneumonia as well. Patient started on systemic steroids and neb treatments from ER. Continue treatment as detailed above Wean O2 to home O2 requirements as tolerated; maintain 90-93% O2 saturations Monitor BiPAP/CPAP as noted above (3) Chronic kidney disease, stage 3: Qualifiers: Chronic kidney disease stage 3 subtype: unspecified whether 3a or 3b Qualified Code(s): N18.30 - Chronic kidney disease, stage 3 unspecified Code(s): N18.30 - Chronic kidney disease, stage 3 unspecified Status: Acute Assessment and Plan: Appears to be at baseline, but slightly increased since yesterday. BUN slowly increasing since admission; possible etiology from vomiting? Monitor renal function during stay (4) Insulin dependent type 2 diabetes mellitus: Code(s): E11.9 - Type 2 diabetes mellitus without complications; Z79.4 - retirement (current) use of insulin Status: Acute Assessment and Plan: BGL 100s; elevated likely from steroids. A1c 5.2 Accuchecks ACHS, hypoglycemia protocol, correctional insulin, Low sodium diet Will continue home 10 u Long acting insulin Monitor (5) CAD (coronary artery disease): Qualifiers: Coronary Disease-Associated Artery/Lesion type: [place] artery [place] vs. transplanted heart: [place] heart Associated angina: without angina Qualified Code(s): I25.10 - Atherosclerotic heart disease of [place] coronary artery without angina pectoris Code(s): I25.10 - Atherosclerotic heart disease of [place] coronary artery without angina pectoris Status: Acute Assessment and Plan: Patient apparently had chest pain overnight. Troponins drawn and negative x 2. Cardiology consulted by bellperson and appreciate recommendations Monitor Continue home meds (6) CHF (congestive heart failure): Qualifiers: Heart failure type: diastolic Heart failure chronicity: acute on chronic Qualified Code(s): I50.33 - Acute on chronic diastolic (congestive) heart failure Code(s): I50.9 - Heart failure, unspecified Status: Acute Assessment and Plan: Patient has LE swelling. BNP elevated but better then previous stays. Possible component to SOB, but patient compliant with diet and home meds Continue home regimen Monitor Consider additional diuretics if increased swelling/no improvement in respiratory status (7) Gastroesophageal reflux disease: Code(s): K21.9 - Gastro-esophageal reflux disease without esophagitis Status: Inactive Assessment and Plan: Suspect her chest burning and episode of vomiting and subsequent abdominal pain may be related to her Hiatal latesha
[2020-08-16] MEDS: BISACODYL 5 MG TABLET EC PO (11:34)
[2020-08-16 11:51] LABS: Glucose Point of Care 159 (65-105)
[2020-08-16] MEDS: INSULIN ASPART (*BKC) 100 UNITS/ML SUB-Q (17:05)
[2020-08-16 17:07] LABS: Glucose Point of Care 226 (65-105)
[2020-08-16 23:10] LABS: Glucose Point of Care 160 (65-105)
[2020-08-17] VITALS (20 sets, daily range): BP systolic 98–153; BP diastolic 68–80; PULSE 71–95; RESP 18–20; TEMP 36.1–36.5; O2SAT 92–99
[2020-08-17] MEDS: HYDROcodone/acetaminophen (*CRX) 5-325 MG TABLET 1 TAB PO (00:35)
[2020-08-17] MEDS: IPRATROPIUM BR 0.02% INH SOLN 0.5 MG/2.5 ML VIAL INHALATION ×5 (01:56→19:35)
[2020-08-17] MEDS: LEVALBUTEROL NEB 1.25 MG/3 ML 0.63 MG INHALATION ×5 (01:57→19:36)
[2020-08-17] MEDS: ACETAMINOPHEN 325 MG TABLET 650 MG PO ×3 (04:47→21:59)
[2020-08-17 05:57] LABS: Basophils Percent Auto 0.2 % (0.2-1.2); Eosinophils Percent Auto 0.5 % (0-4.4); Hematocrit 32.5 % (37.0-47.0); Hemoglobin 9.4 g/dL (12.0-15.0); Immature Granulocyte Absolute 0.05 K/mm3 (0.00-0.031); Immature Granulocyte Percent A 0.8 % (0-0.5); Lymphocytes Absolute Auto 0.98 K/mm3 (0.9-3.2); Lymphocytes Percent Auto 15.9 % (18.3-44.2); Mean Corpuscular HGB Conc 28.9 g/dl (32-36); Mean Corpuscular Volume 100.3 fl (80-100); Mean Platelet Volume 11.7 fl (7.4-10.4); Monocytes Absolute Auto 0.7 K/mm3 (0.1-0.6); Neutrophils Absolute Auto 4.4 K/mm3 (1.3-6.7); Neutrophils Percent Auto 70.6 % (45.5-73.1); Platelet Count Result 212 k/mm3 (150-375); Red Blood Count 3.24 M/mm3 (4.2-5.4); Red Cell Distribution Width 17.3 % (11.5-14.5); White Blood Count 6.2 K/mm3 (4.5-10.0)
[2020-08-17 06:27] LABS: Hypochromasia 1+ (NORMAL); Ovalocytes 1+ (NORMAL); Platelet Estimate Adequate (Adequate)
[2020-08-17 06:33] LABS: Blood Urea Nitrogen 65 mg/dL (7-17); Calcium 8.9 mg/dL (8.4-10.2); Carbon Dioxide > 40 mmol/L (22-30); Chloride 89 mmol/L (98-107); Estimated CRCL calculation 41 ml/min; Estimated Glomerular Filt Rate 43; Glucose 101 mg/dL (65-105); Magnesium 2.3 mg/dL (1.6-2.3); Potassium 4.1 mmol/L (3.4-5.0); Sodium 140 mmol/L (137-145)
[2020-08-17 08:05] LABS: Glucose Point of Care 103 (65-105)
[2020-08-17] MEDS: LIDOCAINE 5% PATCH 1 PATCH TRANSDERM (08:09)
[2020-08-17] MEDS: guaiFENesin 12 HR 600 MG TABCR PO ×2 (08:09→20:42)
[2020-08-17] MEDS: ENOXAPARIN 40 MG/0.4 ML SYRINGE SUB-Q (08:09)
[2020-08-17] MEDS: MAGNESIUM OXIDE 400 MG TABLET PO (08:09)
[2020-08-17] MEDS: TORSEMIDE 20 MG TABLET PO ×2 (08:10→11:35)
[2020-08-17] MEDS: predniSONE 20 MG TABLET 40 MG PO (08:10)
[2020-08-17] MEDS: CLOPIDOGREL BISULFATE 75 MG TABLET PO (08:10)
[2020-08-17] MEDS: hydrALAZINE HCL 25 MG TABLET PO (08:10)
[2020-08-17] MEDS: AMOXICILLIN/CLAVULANATE K 875-125 MG TAB 1 TABLET PO ×2 (08:10→20:42)
[2020-08-17] MEDS: ATORVASTATIN 40 MG TABLET 80 MG PO (08:11)
[2020-08-17] MEDS: ISOSORBIDE MONONITRATE 30 MG TAB.ER.24H PO (08:11)
[2020-08-17] MEDS: EUCERIN CREAM 120 GM JAR 1 APPLIC TOPICAL (08:11)
[2020-08-17] MEDS: calcitrioL 0.25 MCG CAPSULE PO (08:11)
[2020-08-17] MEDS: FERROUS SULFATE 324 MG TABLET PO ×2 (08:11→16:46)
[2020-08-17] MEDS: FENOFIBRATE NANOCRYSTALLIZED 145 MG TABLET PO (08:11)
[2020-08-17] MEDS: ASPIRIN 81 MG ENTERIC TABLET PO (08:11)
[2020-08-17] MEDS: amLODIPine BESYLATE 5 MG TABLET PO (08:11)
[2020-08-17] MEDS: LOSARTAN POTASSIUM 12.5 MG TABLET PO (08:11)
[2020-08-17] MEDS: PANTOPRAZOLE 40 MG TABLET PO ×2 (08:13→20:42)
[2020-08-17] MEDS: INSULIN GLARGINE (*BKC) 100 UNITS/ML 10 UNITS SUB-Q (08:15)
[2020-08-17] MEDS: PREGABALIN (*CRX) 50 MG CAPSULE 200 MG PO ×2 (08:17→16:48)
--- NOTE | 2020-08-17 10:43 | P.PNIM_ITS ---
Progress Note: A&P Assessment and Plan (1) COPD (chronic obstructive pulmonary disease): Code(s): J44.9 - Chronic obstructive pulmonary disease, unspecified Status: Acute Assessment and Plan: Likely acute exacerbation as etiology of SOB. Lung exam reveals improvement/stable today. 3L O2 currently. * Will continue with PO prednisone taper tomorrow; 40 mg through 08/19, taper by 10 mg every 3 days * Neb treatments Q6hr * Continue home meds * Albuterol rescue inhaler PRN * IS/Cornet PEP therapy ordered * Continue Augmentin Q12hr through 08/17 (5 days total) * Monitor for improvement * Wean O2 to home requirement or lower as tolerated * Will continue CPAP/BiPAP as she has had CPAP/BiPAP for suspected sleep apnea on a previous stay but has yet to perform her outpatient sleep study (2) Acute respiratory failure with hypoxia: Code(s): J96.01 - Acute respiratory failure with hypoxia Status: Acute Assessment and Plan: Acute on chronic respiratory failure with hypoxia and chronic hypercapnia. COPD exacerbation felt to be most likely. Has a recent history of COVID pneumonia as well. Patient started on systemic steroids and neb treatments from ER. * Continue treatment as detailed above * Wean O2 to home O2 requirements as tolerated; maintain 90-93% O2 saturations * Monitor * BiPAP/CPAP as noted above (3) Chronic kidney disease, stage 3: Qualifiers: Chronic kidney disease stage 3 subtype: unspecified whether 3a or 3b Qualified Code(s): N18.30 - Chronic kidney disease, stage 3 unspecified Code(s): N18.30 - Chronic kidney disease, stage 3 unspecified Status: Acute Assessment and Plan: Appears to be at baseline; Cr 1.20. BUN stable. * Monitor renal function during stay (4) Insulin dependent type 2 diabetes mellitus: Code(s): E11.9 - Type 2 diabetes mellitus without complications; Z79.4 - senior care (current) use of insulin Status: Acute Assessment and Plan: BGL 100s/ A1c 5.2 * Accuchecks ACHS, hypoglycemia protocol, correctional insulin, Low sodium diet * Will continue home 10 u Long acting insulin * Monitor (5) CAD (coronary artery disease): Qualifiers: Coronary Disease-Associated Artery/Lesion type: [place] artery [place] vs. transplanted heart: [place] heart Associated angina: without angina Qualified Code(s): I25.10 - Atherosclerotic heart disease of [place] coronary artery without angina pectoris Code(s): I25.10 - Atherosclerotic heart disease of [place] coronary artery without angina pectoris Status: Acute Assessment and Plan: Patient apparently had chest pain overnight on 08/15. Troponins drawn and negative x 2. Cardiology consulted by urology physician and appreciate recommendations * Monitor * Continue home meds (6) CHF (congestive heart failure): Qualifiers: Heart failure type: diastolic Heart failure chronicity: acute on chronic Qualified Code(s): I50.33 - Acute on chronic diastolic (congestive) heart failure Code(s): I50.9 - Heart failure, unspecified Status: Acute Assessment and Plan: Patient has LE swelling. BNP elevated but better then previous stays. Possible component to SOB, but patient compliant with diet and home meds. Additional dose of torsemide given yesterday * Continue home regimen * Monitor * Will do another dose of Torsemide today
--- NOTE | 2020-08-17 10:43 | PM.IMPN ---
Progress Note: A&P Assessment and Plan (1) COPD (chronic obstructive pulmonary disease): Code(s): J44.9 - Chronic obstructive pulmonary disease, unspecified Status: Acute Assessment and Plan: Likely acute exacerbation as etiology of SOB. Lung exam reveals improvement/stable today. 3L O2 currently. Will continue with PO prednisone taper tomorrow; 40 mg through 08/19, taper by 10 mg every 3 days Neb treatments Q6hr Continue home meds Albuterol rescue inhaler PRN IS/Cornet PEP therapy ordered Continue Augmentin Q12hr through 08/17 (5 days total) Monitor for improvement Wean O2 to home requirement or lower as tolerated Will continue CPAP/BiPAP as she has had CPAP/BiPAP for suspected sleep apnea on a previous stay but has yet to perform her outpatient sleep study (2) Acute respiratory failure with hypoxia: Code(s): J96.01 - Acute respiratory failure with hypoxia Status: Acute Assessment and Plan: Acute on chronic respiratory failure with hypoxia and chronic hypercapnia. COPD exacerbation felt to be most likely. Has a recent history of COVID pneumonia as well. Patient started on systemic steroids and neb treatments from ER. Continue treatment as detailed above Wean O2 to home O2 requirements as tolerated; maintain 90-93% O2 saturations Monitor BiPAP/CPAP as noted above (3) Chronic kidney disease, stage 3: Qualifiers: Chronic kidney disease stage 3 subtype: unspecified whether 3a or 3b Qualified Code(s): N18.30 - Chronic kidney disease, stage 3 unspecified Code(s): N18.30 - Chronic kidney disease, stage 3 unspecified Status: Acute Assessment and Plan: Appears to be at baseline; Cr 1.20. BUN stable. Monitor renal function during stay (4) Insulin dependent type 2 diabetes mellitus: Code(s): E11.9 - Type 2 diabetes mellitus without complications; Z79.4 - terminal gauger (current) use of insulin Status: Acute Assessment and Plan: BGL 100s/ A1c 5.2 Accuchecks ACHS, hypoglycemia protocol, correctional insulin, Low sodium diet Will continue home 10 u Long acting insulin Monitor (5) CAD (coronary artery disease): Qualifiers: Coronary Disease-Associated Artery/Lesion type: [place] artery [place] vs. transplanted heart: [place] heart Associated angina: without angina Qualified Code(s): I25.10 - Atherosclerotic heart disease of [place] coronary artery without angina pectoris Code(s): I25.10 - Atherosclerotic heart disease of [place] coronary artery without angina pectoris Status: Acute Assessment and Plan: Patient apparently had chest pain overnight on 08/15. Troponins drawn and negative x 2. Cardiology consulted by regrind mill operator and appreciate recommendations Monitor Continue home meds (6) CHF (congestive heart failure): Qualifiers: Heart failure type: diastolic Heart failure chronicity: acute on chronic Qualified Code(s): I50.33 - Acute on chronic diastolic (congestive) heart failure Code(s): I50.9 - Heart failure, unspecified Status: Acute Assessment and Plan: Patient has LE swelling. BNP elevated but better then previous stays. Possible component to SOB, but patient compliant with diet and home meds. Additional dose of torsemide given yesterday Continue home regimen Monitor Will do another dose of Torsemide today (7) Gastroesophageal reflux disease: Code(s): K21.9 - Gastro-esophageal reflux disease without esophagitis Status: Inactive Assessment and Plan: Suspect her chest burning and episode of vomiting on 08/16 and subsequent abdominal pain may be related to her Hiatal hernia and GERD as this seems associated to her meals Will continue inc
[2020-08-17 11:46] LABS: Glucose Point of Care 175 (65-105)
--- NOTE | 2020-08-17 12:03 | WPDGICN ---
Assessment and Plan Assessment and plan (1) Nausea and vomiting in adult: Code(s): R11.2 - Nausea with vomiting, unspecified Status: Acute Assessment and Plan: she is feeling better but could be related to large hiatal hernia, also need to rule out esophagitis, ulcer probably egd on wednesday supportive care, on ppi bid for now tolerating diet now (2) Chest discomfort: Code(s): R07.89 - Other chest pain Status: Acute (3) Large hiatal hernia: Code(s): K44.9 - Diaphragmatic hernia without obstruction or gangrene Status: Acute Assessment and Plan: found by ct scan (4) COPD (chronic obstructive pulmonary disease): Code(s): J44.9 - Chronic obstructive pulmonary disease, unspecified Status: Acute Assessment and Plan: on treatment for copd exacerbation and feeling better (5) Chronic kidney disease, stage 3: Qualifiers: Chronic kidney disease stage 3 subtype: unspecified whether 3a or 3b Qualified Code(s): N18.30 - Chronic kidney disease, stage 3 unspecified Code(s): N18.30 - Chronic kidney disease, stage 3 unspecified Status: Acute Assessment and Plan: creatinine at baseline, stable (6) Insulin dependent type 2 diabetes mellitus: Code(s): E11.9 - Type 2 diabetes mellitus without complications; Z79.4 - terminal operator (current) use of insulin Status: Acute (7) CAD (coronary artery disease): Qualifiers: Coronary Disease-Associated Artery/Lesion type: [place] artery [place] vs. transplanted heart: [place] heart Associated angina: without angina Qualified Code(s): I25.10 - Atherosclerotic heart disease of [place] coronary artery without angina pectoris Code(s): I25.10 - Atherosclerotic heart disease of [place] coronary artery without angina pectoris Status: Acute Assessment and Plan: troponin negative, evaluated by cardiology last cath 2 months ago GI Consult Note Consult date/time: 08/17/20 12:03 Reason for consult: n/v, gerd HPI: Chandni Vicente is a 80 year old female with COVID pneumonia about 1.5 month ago, HTN, CAD on underwent PCI/stenting of LAD with ADITI, DM, HTN and COPD on home oxygen here with worsening shortness of breath. Chest CT was negative for pulmonary embolism, mild airspace opacities in right upper lobe and right lower lobe, consistent with atelectasis versus pneumonia, moderate-sized sliding hiatal hernia. She says that for last few months had intermittent nausea and sometimes vomiting after eating (last emesis yesterday), also upper abdominal discomfort. Her PPI was increased to twice daily, today is feeling better and also less short of breath. Also evaluated by cardiology given history of heart disease, troponins negative. Review of Systems Constitutional: Constitutional: Denies chills Eyes: Eyes: Reports no additional eye complaints ENT: Reports system reviewed and no additional complaints, except as documented Cardiovascular: Cardiovascular: Denies lightheadedness Respiratory: Respiratory: Reports dyspnea on exertion Gastrointestinal: Gastrointestinal: Reports abdominal pain, Reports nausea and Reports vomiting Genitourinary: Genitourinary: Denies hematuria Musculoskeletal: Musculoskeletal: Denies joint swelling Integumentary/Breasts: Skin/Breast: Denies unusual bruising Neurologic: Denies headache(s) Psychiatric: Psychiatric: Denies behavioral changes Endocrine: Endocrine: Denies cold intolerance Hematologic/Lymphatic: Hematologic/Lymphatic: Denies easy bleeding Allergic/Immunologic: Allergic/Immunologic: Denies itchy eyes PMFSH Past Medical History Medical History (Updated 08/17/20 @ 12:12 by Fabien Chaudhari MD) Anemia Anxiety Chronic kidney disease, stage 3 Baseline creatinine is between 1.3 and 1.50. Chronic obstructive pulmonary disease Chronic pain Chronic respiratory failure with hypoxia Congestive heart failure [place]
[2020-08-17] MEDS: ONDANSETRON INJ 4 MG/2 ML VIAL IV PUSH (13:25)
[2020-08-17] MEDS: TIZANIDINE HCL 4 MG TABLET PO ×2 (13:25→22:00)
--- NOTE | 2020-08-17 13:28 | PM.PNCARD ---
Progress Note: A&P Assessment and Plan (1) Acute respiratory failure with hypoxia: Code(s): J96.01 - Acute respiratory failure with hypoxia Status: Acute Assessment and Plan: pt with recent COVID pneumonia antibiotics and steroids per Primary service. (2) COPD (chronic obstructive pulmonary disease): Code(s): J44.9 - Chronic obstructive pulmonary disease, unspecified Status: Acute Assessment and Plan: She has COPD exacerbation in setting of recent of pneumonia. (3) Chronic kidney disease, stage 3: Qualifiers: Chronic kidney disease stage 3 subtype: unspecified whether 3a or 3b Qualified Code(s): N18.30 - Chronic kidney disease, stage 3 unspecified Code(s): N18.30 - Chronic kidney disease, stage 3 unspecified Status: Acute (4) COVID-19: Code(s): U07.1 - COVID-19 Status: Acute Assessment and Plan: She had recent COVID pneumonia. (5) Type 2 diabetes mellitus: Code(s): E11.9 - Type 2 diabetes mellitus without complications Status: Acute (6) Pneumonia: Code(s): J18.9 - Pneumonia, unspecified organism Status: Acute (7) Chest discomfort: Code(s): R07.89 - Other chest pain Status: Acute Assessment and Plan: pt does have sometimes chest discomfort when coughing CE negative no acute EKG changes Recent ECHO showed normal LV systolic function (LVEF 55-60%) cont medical management including adjustment of BP meds (8) CAD (coronary artery disease): Qualifiers: Associated angina: without angina Coronary Disease-Associated Artery/Lesion type: [place] artery [place] vs. transplanted heart: [place] heart Qualified Code(s): I25.10 - Atherosclerotic heart disease of [place] coronary artery without angina pectoris Code(s): I25.10 - Atherosclerotic heart disease of [place] coronary artery without angina pectoris Status: Acute Assessment and Plan: s/p PCI 2 months ago cont ASA and Plavix (9) Afib: Code(s): I48.91 - Unspecified atrial fibrillation Status: Acute Assessment and Plan: pt with chronic AFIB HR well controlled (10) Anemia: Qualifiers: Anemia type: other cause Other causes of anemia: other cause, not classified Qualified Code(s): D64.89 - Other specified anemias Code(s): D64.9 - Anemia, unspecified Status: Acute Assessment and Plan: Hgb 8.6 (11) HTN (hypertension): Code(s): I10 - Essential (primary) hypertension Status: Acute Assessment and Plan: not optimally controlled Will adjust meds goal to keep BP < 150/90 cont low Na diet Subjective Date/time seen: 08/17/20 13:28 Interval history: Patient is a 80 yo F with history of hypertension, type 2 diabetes mellitus, COPD with chronic respiratory failure with recent COVID-19, congestive heart failure and several other comorbidities who is seen in follow up for COPD exacerbation and acute on chronic respiratory failure with hypoxia and chronic hypercapnia. Patient reports that she is feeling better since admission but notes some occasional central chest heaviness present for days, worse when she presses on her central chest wall. She also reports improving dyspnea but with an episode of dyspnea earlier in the day. She denies dizziness at present reports occasional dizziness. Overall she feels better. Patient was seen and examined, chart reviewed, and case discussed with nurse. Exam Narrative: Exam Narrative: General: Patient resting supine in bed in no acute distress; HEENT: Normocephalic, EOMI, oral mucosa moist. Cardiovascular: Rate and rhythm are irregularly irregular with moderate rate. No notable murmur, rub, or gallop. Respiratory: Occasional scattered rhonchi. She speaks in long sentences. Non-labored breathing. No respiratory distress. Abdomen: Soft, obese abdomen. Extremities: Peripheral pulses intact. bilateral LE edema, mild
[2020-08-17 16:44] LABS: Glucose Point of Care 241 (65-105)
[2020-08-17] MEDS: INSULIN ASPART (*BKC) 100 UNITS/ML SUB-Q (16:44)
[2020-08-17] MEDS: CALCIUM CARBONATE (TUMS) 500 MG (200 MG ELEMENTAL) PO (18:19)
[2020-08-17 21:26] LABS: Glucose Point of Care 213 (65-105)
[2020-08-17] MEDS: NITROGLYCERIN SL 0.4 MG TABLET SUBLINGUAL (21:57)
[2020-08-18] VITALS (19 sets, daily range): BP systolic 105–135; BP diastolic 53–63; PULSE 69–100; RESP 15–22; TEMP 36.1–36.6; O2SAT 92–99
[2020-08-18] MEDS: IPRATROPIUM BR 0.02% INH SOLN 0.5 MG/2.5 ML VIAL INHALATION ×4 (01:48→20:38)
[2020-08-18] MEDS: LEVALBUTEROL NEB 1.25 MG/3 ML 0.63 MG INHALATION ×4 (01:48→20:38)
[2020-08-18] MEDS: HYDROcodone/acetaminophen (*CRX) 5-325 MG TABLET 1 TAB PO ×2 (02:46→15:50)
[2020-08-18 06:09] LABS: Hematocrit 31.4 % (37.0-47.0); Hemoglobin 9.3 g/dL (12.0-15.0); Mean Corpuscular HGB Conc 29.6 g/dl (32-36); Mean Corpuscular Hemoglobin 29.4 pg (26-34); Mean Corpuscular Volume 99.4 fl (80-100); Mean Platelet Volume 11.6 fl (7.4-10.4); Platelet Count Result 201 k/mm3 (150-375); Red Blood Count 3.16 M/mm3 (4.2-5.4); Red Cell Distribution Width 17.2 % (11.5-14.5); White Blood Count 9.2 K/mm3 (4.5-10.0)
[2020-08-18 06:41] LABS: Blood Urea Nitrogen 63 mg/dL (7-17); Calcium 8.8 mg/dL (8.4-10.2); Carbon Dioxide > 40 mmol/L (22-30); Chloride 87 mmol/L (98-107); Estimated CRCL calculation 41 ml/min; Estimated Glomerular Filt Rate 43; Glucose 80 mg/dL (65-105); Magnesium 2.1 mg/dL (1.6-2.3); Potassium 3.5 mmol/L (3.4-5.0); Sodium 140 mmol/L (137-145)
[2020-08-18 07:29] LABS: Eosinophils Absolute Manual 0.09 K/mm3 (0.02-0.5); Eosinophils Percent Manual 1 % (0-4); Large Platelets Present; Lymphocytes Absolute Manual 0.82 K/mm3 (1.1-4.5); Monocytes Absolute Manual 1.01 K/mm3 (0.1-0.90); Monocytes Percent Manual 11 % (3-9); Neutrophils Percent Manual 79 % (46-73); Platelet Estimate Adequate (Adequate); Total Cells Counted 100
[2020-08-18 07:30] LABS: Hypochromasia 1+ (NORMAL); Ovalocytes 1+ (NORMAL)
[2020-08-18 08:11] LABS: Glucose Point of Care 92 (65-105)
--- NOTE | 2020-08-18 08:51 | PM.PNCARD ---
Progress Note: A&P Assessment and Plan (1) Acute respiratory failure with hypoxia: Code(s): J96.01 - Acute respiratory failure with hypoxia Status: Acute Assessment and Plan: pt with recent COVID pneumonia antibiotics and steroids per Primary service. (2) COPD (chronic obstructive pulmonary disease): Code(s): J44.9 - Chronic obstructive pulmonary disease, unspecified Status: Acute Assessment and Plan: She has COPD exacerbation in setting of recent of pneumonia. (3) Chronic kidney disease, stage 3: Qualifiers: Chronic kidney disease stage 3 subtype: unspecified whether 3a or 3b Qualified Code(s): N18.30 - Chronic kidney disease, stage 3 unspecified Code(s): N18.30 - Chronic kidney disease, stage 3 unspecified Status: Acute (4) COVID-19: Code(s): U07.1 - COVID-19 Status: Acute Assessment and Plan: She had recent COVID pneumonia. (5) Type 2 diabetes mellitus: Code(s): E11.9 - Type 2 diabetes mellitus without complications Status: Acute (6) Pneumonia: Code(s): J18.9 - Pneumonia, unspecified organism Status: Acute (7) Chest discomfort: Code(s): R07.89 - Other chest pain Status: Acute Assessment and Plan: pt does have sometimes chest discomfort when coughing CE negative no acute EKG changes Recent ECHO showed normal LV systolic function (LVEF 55-60%) cont medical management including adjustment of BP meds (8) CAD (coronary artery disease): Qualifiers: Associated angina: without angina Coronary Disease-Associated Artery/Lesion type: [place] artery [place] vs. transplanted heart: [place] heart Qualified Code(s): I25.10 - Atherosclerotic heart disease of [place] coronary artery without angina pectoris Code(s): I25.10 - Atherosclerotic heart disease of [place] coronary artery without angina pectoris Status: Acute Assessment and Plan: s/p PCI 2 months ago cont ASA and Plavix (9) Afib: Code(s): I48.91 - Unspecified atrial fibrillation Status: Acute Assessment and Plan: pt with chronic AFIB HR well controlled (10) Anemia: Qualifiers: Anemia type: other cause Other causes of anemia: other cause, not classified Qualified Code(s): D64.89 - Other specified anemias Code(s): D64.9 - Anemia, unspecified Status: Acute Assessment and Plan: Hgb 8.6 (11) HTN (hypertension): Code(s): I10 - Essential (primary) hypertension Status: Acute Assessment and Plan: not optimally controlled Will adjust meds goal to keep BP < 150/90 cont low Na diet Subjective Date/time seen: 08/18/20 08:51 Interval history: Patient is a 80 yo F with history of hypertension, type 2 diabetes mellitus, COPD with chronic respiratory failure with recent COVID-19, congestive heart failure and several other comorbidities who is seen in follow up for COPD exacerbation and acute on chronic respiratory failure with hypoxia and chronic hypercapnia. Patient reports that she is feeling better since admission but notes some occasional sharp central chest discomfort with unusual taste in mouth, with discomfort sometimes worse when she presses on her central chest wall. She also reports improving dyspnea but with an episode of dyspnea earlier in the day. She denies dizziness at present reports occasional dizziness. Overall she feels better. She has hiatal hernia and awaits EGD this admission. Patient was seen and examined, chart reviewed, and case discussed with nurse. Exam Narrative: Exam Narrative: General: Patient resting supine in bed in no acute distress; HEENT: Normocephalic, EOMI, oral mucosa moist. Cardiovascular: Rate and rhythm are irregularly irregular with moderate rate. No notable murmur, rub, or gallop. Respiratory: Occasional scattered rhonchi. She speaks in long sentences. Non-labored breathing. No respiratory distress.
[2020-08-18] MEDS: ISOSORBIDE MONONITRATE 30 MG TAB.ER.24H PO (09:26)
[2020-08-18] MEDS: FERROUS SULFATE 324 MG TABLET PO ×2 (09:26→16:41)
[2020-08-18] MEDS: amLODIPine BESYLATE 5 MG TABLET PO (09:26)
[2020-08-18] MEDS: hydrALAZINE HCL 25 MG TABLET PO ×2 (09:26→16:51)
[2020-08-18] MEDS: POTASSIUM CHLORIDE 20 MEQ PACKET (FOR LIQUID) PO (09:26)
[2020-08-18] MEDS: PANTOPRAZOLE 40 MG TABLET PO ×2 (09:26→21:57)
[2020-08-18] MEDS: predniSONE 20 MG TABLET 40 MG PO (09:26)
[2020-08-18] MEDS: LIDOCAINE 5% PATCH 1 PATCH TRANSDERM (09:27)
[2020-08-18] MEDS: TORSEMIDE 20 MG TABLET PO (09:27)
[2020-08-18] MEDS: ATORVASTATIN 40 MG TABLET 80 MG PO (09:27)
[2020-08-18] MEDS: ENOXAPARIN 40 MG/0.4 ML SYRINGE SUB-Q (09:28)
[2020-08-18] MEDS: calcitrioL 0.25 MCG CAPSULE PO (09:28)
[2020-08-18] MEDS: FENOFIBRATE NANOCRYSTALLIZED 145 MG TABLET PO (09:28)
[2020-08-18] MEDS: ASPIRIN 81 MG ENTERIC TABLET PO (09:28)
[2020-08-18] MEDS: guaiFENesin 12 HR 600 MG TABCR PO ×2 (09:28→21:56)
[2020-08-18] MEDS: LOSARTAN POTASSIUM 12.5 MG TABLET PO (09:28)
[2020-08-18] MEDS: CLOPIDOGREL BISULFATE 75 MG TABLET PO (09:28)
[2020-08-18] MEDS: PREGABALIN (*CRX) 50 MG CAPSULE 200 MG PO ×2 (09:29→16:51)
[2020-08-18] MEDS: MAGNESIUM OXIDE 400 MG TABLET PO (09:29)
[2020-08-18] MEDS: EUCERIN CREAM 120 GM JAR 1 APPLIC TOPICAL (09:29)
--- NOTE | 2020-08-18 09:53 | WPDGIPROGNO ---
Progress Note: A&P Assessment and Plan (1) Nausea and vomiting in adult: Code(s): R11.2 - Nausea with vomiting, unspecified Status: Acute Assessment and Plan: antiemetics prn, better egd tomorrow, also sometimes feels discomfort in chest and CT found large hiatal hernia also on ppi (2) Large hiatal hernia: Code(s): K44.9 - Diaphragmatic hernia without obstruction or gangrene Status: Acute Assessment and Plan: egd, assess if pud, esophagitis, etc (3) Chest discomfort: Code(s): R07.89 - Other chest pain Status: Acute (4) COPD (chronic obstructive pulmonary disease): Code(s): J44.9 - Chronic obstructive pulmonary disease, unspecified Status: Acute Assessment and Plan: on medical treatment Subjective Date/time seen: 08/18/20 09:53 Interval history: no major changes, some heaviness in epigastric area Review of Systems Review of Systems: All systems reviewed & are unremarkable except as noted in HPI and below Exam Const: General: comfortable (using oxygen by NC and talking comfortable, feels better) and no acute distress Nutritional Appearance: obese HENMT: General nose exam: Normal nares present Eyes: General: appearance normal, both eyes and all related structures Neck: Neck: no JVD Resp: Auscultation: no wheezes and diminished lung sounds Cardio: Rate: regular rate Rhythm: regular rhythm GI: Inspection: non-distended GI Palp: Yes Soft to palpation and No Tenderness to palpation present (GI) Auscultation: normal bowel sounds Skin: General skin exam: normal color Neuro: Speech: normal speech Motor exam (neuro): Normal motor muscle tone present throughout Extrem: General: normal to inspection Psych: Mental Status: mental status grossly normal Objective Data Vital Signs Vital Signs: Vital Signs - 24 hr 08/17/20 11:39 08/17/20 12:00 08/17/20 14:00 Temperature 97.7 F Pulse Rate 95 82 Respiratory Rate 18 Blood Pressure 98/75 L Pulse Oximetry 92 93 08/17/20 14:50 08/17/20 15:00 08/17/20 16:00 Temperature Pulse Rate 75 72 74 Respiratory Rate 18 18 Blood Pressure Pulse Oximetry 08/17/20 19:38 08/17/20 20:00 08/17/20 20:49 Temperature Pulse Rate 89 85 Respiratory Rate 18 Blood Pressure Pulse Oximetry 97 97 08/17/20 22:00 08/18/20 00:00 08/18/20 01:50 Temperature 96.9 F L Pulse Rate 77 78 78 Respiratory Rate 20 18 Blood Pressure 134/68 Pulse Oximetry 98 08/18/20 04:00 08/18/20 04:46 08/18/20 07:23 Temperature 97 F L Pulse Rate 100 69 Respiratory Rate 20 Blood Pressure 135/57 L Pulse Oximetry 99 99 08/18/20 07:32 08/18/20 07:33 Temperature Pulse Rate 79 Respiratory Rate 18 Blood Pressure Pulse Oximetry 97 Intake/Output Intake/Output: Intake & Output 08/15/20 08/16/20 08/17/20 08/18/20 23:59 23:59 23:59 23:59 Intake Total 1950 1420 1510 290 Output Total 925 2100 3450 1400 Balance 1025 -680 -1940 -1110 Meds/Results Medications: Active Medications Generic Name Dose Route Start Last Admin Trade Name Freq PRN Reason Stop Dose Admin Acetaminophen 650 mg 08/15/20 15:33 08/17/20 21:59 Acetaminophen 325 Mg Tablet PO 650 mg Q6H PRN Administration Mild Pain (1-3) or Fever Hydrocodone Bitart/Acetaminophen 1 tab 08/13/20 06:03 08/18/20 02:46 Hydrocodone/Acetaminophen (*Crx) 5-325 Mg Tablet PO 1 tab Q8H PRN Administration pain Albuterol 4 puff 08/14/20 09:45 Albuterol Sulfate (*Sp) Aerosol 1 Puff INHALATION QIDRT PRN Shortness Of Breath Amlodipine Besylate 5 mg 08/13/20 09:00 08/18/20 09:26 Amlodipine Besylate 5 Mg Tablet PO 5 mg DAILY BEL Administration Aspirin 81 mg 08/13/20 09:00 08/18/20 09:28 Aspirin 81 Mg Enteric Tablet PO 81 mg QAM BEL Administration Atorvastatin Calcium 80 mg 08/13/20 09:00 08/18/20 09:27 Atorvastatin 40 Mg Tablet PO 80 mg DA
[2020-08-18] MEDS: ACETAMINOPHEN 325 MG TABLET 650 MG PO ×2 (09:59→21:54)
[2020-08-18] MEDS: INSULIN GLARGINE (*BKC) 100 UNITS/ML SUB-Q (10:00)
[2020-08-18] MEDS: TIZANIDINE HCL 4 MG TABLET PO ×2 (10:00→21:56)
[2020-08-18 13:15] LABS: Glucose Point of Care 213 (65-105)
[2020-08-18] MEDS: INSULIN ASPART (*BKC) 100 UNITS/ML SUB-Q ×2 (13:16→16:42)
--- NOTE | 2020-08-18 13:50 | P.PNIM_ITS ---
Progress Note: A&P Assessment and Plan (1) COPD (chronic obstructive pulmonary disease): Code(s): J44.9 - Chronic obstructive pulmonary disease, unspecified Status: Acute Assessment and Plan: Likely acute exacerbation as etiology of SOB. Lung exam reveals improvement/stable today. 2L O2 currently. * Will continue with PO prednisone taper; 40 mg through 08/19, taper by 10 mg every 3 days * Neb treatments Q6hr * Continue home meds * Albuterol rescue inhaler PRN * IS/Cornet PEP therapy ordered * Augmentin course completed on 08/17 (5 days total) * Monitor for improvement * Wean O2 to home requirement or lower as tolerated * Will continue CPAP/BiPAP as she has had CPAP/BiPAP for suspected sleep apnea on a previous stay but has yet to perform her outpatient sleep study. Strongly encouraged her to wear this during her stay although she is reluctant (2) Acute respiratory failure with hypoxia: Code(s): J96.01 - Acute respiratory failure with hypoxia Status: Acute Assessment and Plan: Acute on chronic respiratory failure with hypoxia and chronic hypercapnia; wears 3 L at home normally. COPD exacerbation felt to be most likely. Has a recent history of COVID pneumonia as well. Patient started on systemic steroids and neb treatments from ER. * Continue treatment as detailed above * Wean O2 to home O2 requirements as tolerated; maintain 90-93% O2 saturations * Monitor * BiPAP/CPAP as noted above * Will likely due Home O2 eval prior to discharge (3) Chronic kidney disease, stage 3: Qualifiers: Chronic kidney disease stage 3 subtype: unspecified whether 3a or 3b Qualified Code(s): N18.30 - Chronic kidney disease, stage 3 unspecified Code(s): N18.30 - Chronic kidney disease, stage 3 unspecified Status: Acute Assessment and Plan: Appears to be at baseline; Cr 1.20. BUN slight improvement. * Monitor renal function during stay (4) Insulin dependent type 2 diabetes mellitus: Code(s): E11.9 - Type 2 diabetes mellitus without complications; Z79.4 - long term care social worker (current) use of insulin Status: Acute Assessment and Plan: BGL 100s/ A1c 5.2 * Accuchecks ACHS, hypoglycemia protocol, correctional insulin, Low sodium diet * Will continue home 10 u Long acting insulin. 5 u units given this morning given low BGL reading * Monitor (5) CAD (coronary artery disease): Qualifiers: Coronary Disease-Associated Artery/Lesion type: [place] artery [place] vs. transplanted heart: [place] heart Associated angina: without angina Qualified Code(s): I25.10 - Atherosclerotic heart disease of [place] coronary artery without angina pectoris Code(s): I25.10 - Atherosclerotic heart disease of [place] coronary artery without angina pectoris Status: Acute Assessment and Plan: Patient apparently had chest pain overnight on 08/15. Troponins drawn and negative x 2. Cardiology consulted by top lift scourer and appreciate recommendations * Monitor * Continue home meds (6) CHF (congestive heart failure): Qualifiers: Heart failure type: diastolic Heart failure chronicity: acute on chronic Qualified Code(s): I50.33 - Acute on chronic diastolic (congestive) heart failure Code(s): I50.9 - Heart failure, unspecified Status: Acute Assessment and Plan: Patient has LE swelling. BNP elevated but better then previous stays. Possible component to
--- NOTE | 2020-08-18 13:50 | PM.IMPN ---
Progress Note: A&P Assessment and Plan (1) COPD (chronic obstructive pulmonary disease): Code(s): J44.9 - Chronic obstructive pulmonary disease, unspecified Status: Acute Assessment and Plan: Likely acute exacerbation as etiology of SOB. Lung exam reveals improvement/stable today. 2L O2 currently. Will continue with PO prednisone taper; 40 mg through 08/19, taper by 10 mg every 3 days Neb treatments Q6hr Continue home meds Albuterol rescue inhaler PRN IS/Cornet PEP therapy ordered Augmentin course completed on 08/17 (5 days total) Monitor for improvement Wean O2 to home requirement or lower as tolerated Will continue CPAP/BiPAP as she has had CPAP/BiPAP for suspected sleep apnea on a previous stay but has yet to perform her outpatient sleep study. Strongly encouraged her to wear this during her stay although she is reluctant (2) Acute respiratory failure with hypoxia: Code(s): J96.01 - Acute respiratory failure with hypoxia Status: Acute Assessment and Plan: Acute on chronic respiratory failure with hypoxia and chronic hypercapnia; wears 3 L at home normally. COPD exacerbation felt to be most likely. Has a recent history of COVID pneumonia as well. Patient started on systemic steroids and neb treatments from ER. Continue treatment as detailed above Wean O2 to home O2 requirements as tolerated; maintain 90-93% O2 saturations Monitor BiPAP/CPAP as noted above Will likely due Home O2 eval prior to discharge (3) Chronic kidney disease, stage 3: Qualifiers: Chronic kidney disease stage 3 subtype: unspecified whether 3a or 3b Qualified Code(s): N18.30 - Chronic kidney disease, stage 3 unspecified Code(s): N18.30 - Chronic kidney disease, stage 3 unspecified Status: Acute Assessment and Plan: Appears to be at baseline; Cr 1.20. BUN slight improvement. Monitor renal function during stay (4) Insulin dependent type 2 diabetes mellitus: Code(s): E11.9 - Type 2 diabetes mellitus without complications; Z79.4 - cathead operator (current) use of insulin Status: Acute Assessment and Plan: BGL 100s/ A1c 5.2 Accuchecks ACHS, hypoglycemia protocol, correctional insulin, Low sodium diet Will continue home 10 u Long acting insulin. 5 u units given this morning given low BGL reading Monitor (5) CAD (coronary artery disease): Qualifiers: Coronary Disease-Associated Artery/Lesion type: [place] artery [place] vs. transplanted heart: [place] heart Associated angina: without angina Qualified Code(s): I25.10 - Atherosclerotic heart disease of [place] coronary artery without angina pectoris Code(s): I25.10 - Atherosclerotic heart disease of [place] coronary artery without angina pectoris Status: Acute Assessment and Plan: Patient apparently had chest pain overnight on 08/15. Troponins drawn and negative x 2. Cardiology consulted by deputy insurance commissioner and appreciate recommendations Monitor Continue home meds (6) CHF (congestive heart failure): Qualifiers: Heart failure type: diastolic Heart failure chronicity: acute on chronic Qualified Code(s): I50.33 - Acute on chronic diastolic (congestive) heart failure Code(s): I50.9 - Heart failure, unspecified Status: Acute Assessment and Plan: Patient has LE swelling. BNP elevated but better then previous stays. Possible component to SOB, but patient compliant with diet and home meds. Additional dose of torsemide given on 08/16 and 08/17 with improvement in LE swelling and breathing Continue home regimen Monitor (7) Gastroesophageal reflux disease: Code(s): K21.9 - Gastro-esophageal reflux disease without esophagitis Status: Inactiv
[2020-08-18 16:50] LABS: Glucose Point of Care 295 (65-105)
[2020-08-18 22:57] LABS: Glucose Point of Care 183 (65-105)
[2020-08-19] VITALS (17 sets, daily range): BP systolic 110–145; BP diastolic 53–73; PULSE 64–87; RESP 14–23; TEMP 36.6–36.8; O2SAT 90–97
[2020-08-19] MEDS: IPRATROPIUM BR 0.02% INH SOLN 0.5 MG/2.5 ML VIAL INHALATION ×3 (01:46→22:18)
[2020-08-19] MEDS: LEVALBUTEROL NEB 1.25 MG/3 ML 0.63 MG INHALATION ×3 (01:46→22:18)
--- NOTE | 2020-08-19 02:06 | PCRCNOTE ---
PT ASSESSMENT SHOWED SPO2 ON BOTH HANDS OF 45%. O2 INCREASED TO 8LPM VIA CPAP. PT WAS AWAKENED AND SET UP IN BED. SPO2 CLIMBED TO 82%. PT WAS DUE TO NEBULIZER TX SO CPAP WAS REMOVED AND TX WAS PLACED ON PT. SPO2 99% WITH TX. PT WAS LEFT ON 2.5LPM NC WHILE UP TO BATHROOM.
[2020-08-19 05:40] LABS: Hematocrit 29.5 % (37.0-47.0); Hemoglobin 8.6 g/dL (12.0-15.0); Mean Corpuscular HGB Conc 29.2 g/dl (32-36); Mean Corpuscular Hemoglobin 29.3 pg (26-34); Mean Corpuscular Volume 100.3 fl (80-100); Mean Platelet Volume 11.6 fl (7.4-10.4); Platelet Count Result 193 k/mm3 (150-375); Red Blood Count 2.94 M/mm3 (4.2-5.4); Red Cell Distribution Width 17.3 % (11.5-14.5); White Blood Count 7.5 K/mm3 (4.5-10.0)
[2020-08-19 06:04] LABS: Blood Urea Nitrogen 57 mg/dL (7-17); Calcium 8.3 mg/dL (8.4-10.2); Carbon Dioxide > 40 mmol/L (22-30); Chloride 87 mmol/L (98-107); Estimated CRCL calculation 41 ml/min; Estimated Glomerular Filt Rate 43; Glucose 125 mg/dL (65-105); Magnesium 2.1 mg/dL (1.6-2.3); Potassium 3.5 mmol/L (3.4-5.0); Sodium 137 mmol/L (137-145)
[2020-08-19 08:24] LABS: Glucose Point of Care 114 (65-105)
--- NOTE | 2020-08-19 08:39 | P.PNIM_ITS ---
Progress Note: A&P Assessment and Plan (1) COPD (chronic obstructive pulmonary disease): Code(s): J44.9 - Chronic obstructive pulmonary disease, unspecified Status: Acute Assessment and Plan: Likely acute exacerbation as etiology of SOB. Lung exam shows significant improvement today. 2L O2 currently. * Will continue with PO prednisone taper; 40 mg x 3 doses, taper to 30 mg 08/20, taper by 10 mg every 3 days * Neb treatments Q6hr * Continue home meds * Albuterol rescue inhaler PRN * IS/Cornet PEP therapy ordered * Augmentin course completed on 08/17 (5 days total) * Monitor for improvement * Wean O2 to home requirement or lower as tolerated * Will continue CPAP/BiPAP as she has had CPAP/BiPAP for suspected sleep apnea on a previous stay but has yet to perform her outpatient sleep study (states she has an appointment before the end of the year). Strongly encouraged her to wear this during her stay although she is reluctant (2) Acute respiratory failure with hypoxia: Code(s): J96.01 - Acute respiratory failure with hypoxia Status: Acute Assessment and Plan: Acute on chronic respiratory failure with hypoxia and chronic hypercapnia; wears 3 L at home normally. COPD exacerbation felt to be most likely. Has a recent history of COVID pneumonia as well. Patient started on systemic steroids and neb treatments from ER. * Continue treatment as detailed above * Wean O2 to home O2 requirements as tolerated; maintain 90-93% O2 saturations * Monitor * BiPAP/CPAP as noted above * Will likely due Home O2 eval prior to discharge (3) Chronic kidney disease, stage 3: Qualifiers: Chronic kidney disease stage 3 subtype: unspecified whether 3a or 3b Qualified Code(s): N18.30 - Chronic kidney disease, stage 3 unspecified Code(s): N18.30 - Chronic kidney disease, stage 3 unspecified Status: Acute Assessment and Plan: Appears to be at baseline; Cr 1.20. BUN slight improvement. * Monitor renal function during stay (4) Insulin dependent type 2 diabetes mellitus: Code(s): E11.9 - Type 2 diabetes mellitus without complications; Z79.4 - extermination inspector (current) use of insulin Status: Acute Assessment and Plan: BGL 100s/ A1c 5.2 * Accuchecks ACHS, hypoglycemia protocol, correctional insulin, Low sodium diet * Will continue home 10 u Long acting insulin * Monitor (5) CAD (coronary artery disease): Qualifiers: Coronary Disease-Associated Artery/Lesion type: [place] artery [place] vs. transplanted heart: [place] heart Associated angina: without angina Qualified Code(s): I25.10 - Atherosclerotic heart disease of [place] coronary artery without angina pectoris Code(s): I25.10 - Atherosclerotic heart disease of [place] coronary artery without angina pectoris Status: Acute Assessment and Plan: Patient apparently had chest pain overnight on 08/15. Troponins drawn and negative x 2. Cardiology consulted by physical education professor and appreciate recommendations * Monitor * Continue home meds (6) CHF (congestive heart failure): Qualifiers: Heart failure type: diastolic Heart failure chronicity: acute on chronic Qualified Code(s): I50.33 - Acute on chronic diastolic (congestive) heart failure Code(s): I50.9 - Heart failure, unspecified Status: Acute Assessment and Plan: Patient has LE swelling. BNP elevated but better then previous stays
--- NOTE | 2020-08-19 08:39 | PM.IMPN ---
Progress Note: A&P Assessment and Plan (1) COPD (chronic obstructive pulmonary disease): Code(s): J44.9 - Chronic obstructive pulmonary disease, unspecified Status: Acute Assessment and Plan: Likely acute exacerbation as etiology of SOB. Lung exam shows significant improvement today. 2L O2 currently. Will continue with PO prednisone taper; 40 mg x 3 doses, taper to 30 mg 08/20, taper by 10 mg every 3 days Neb treatments Q6hr Continue home meds Albuterol rescue inhaler PRN IS/Cornet PEP therapy ordered Augmentin course completed on 08/17 (5 days total) Monitor for improvement Wean O2 to home requirement or lower as tolerated Will continue CPAP/BiPAP as she has had CPAP/BiPAP for suspected sleep apnea on a previous stay but has yet to perform her outpatient sleep study (states she has an appointment before the end of the year). Strongly encouraged her to wear this during her stay although she is reluctant (2) Acute respiratory failure with hypoxia: Code(s): J96.01 - Acute respiratory failure with hypoxia Status: Acute Assessment and Plan: Acute on chronic respiratory failure with hypoxia and chronic hypercapnia; wears 3 L at home normally. COPD exacerbation felt to be most likely. Has a recent history of COVID pneumonia as well. Patient started on systemic steroids and neb treatments from ER. Continue treatment as detailed above Wean O2 to home O2 requirements as tolerated; maintain 90-93% O2 saturations Monitor BiPAP/CPAP as noted above Will likely due Home O2 eval prior to discharge (3) Chronic kidney disease, stage 3: Qualifiers: Chronic kidney disease stage 3 subtype: unspecified whether 3a or 3b Qualified Code(s): N18.30 - Chronic kidney disease, stage 3 unspecified Code(s): N18.30 - Chronic kidney disease, stage 3 unspecified Status: Acute Assessment and Plan: Appears to be at baseline; Cr 1.20. BUN slight improvement. Monitor renal function during stay (4) Insulin dependent type 2 diabetes mellitus: Code(s): E11.9 - Type 2 diabetes mellitus without complications; Z79.4 - halfway (current) use of insulin Status: Acute Assessment and Plan: BGL 100s/ A1c 5.2 Accuchecks ACHS, hypoglycemia protocol, correctional insulin, Low sodium diet Will continue home 10 u Long acting insulin Monitor (5) CAD (coronary artery disease): Qualifiers: Coronary Disease-Associated Artery/Lesion type: [place] artery [place] vs. transplanted heart: [place] heart Associated angina: without angina Qualified Code(s): I25.10 - Atherosclerotic heart disease of [place] coronary artery without angina pectoris Code(s): I25.10 - Atherosclerotic heart disease of [place] coronary artery without angina pectoris Status: Acute Assessment and Plan: Patient apparently had chest pain overnight on 08/15. Troponins drawn and negative x 2. Cardiology consulted by grizzly worker and appreciate recommendations Monitor Continue home meds (6) CHF (congestive heart failure): Qualifiers: Heart failure type: diastolic Heart failure chronicity: acute on chronic Qualified Code(s): I50.33 - Acute on chronic diastolic (congestive) heart failure Code(s): I50.9 - Heart failure, unspecified Status: Acute Assessment and Plan: Patient has LE swelling. BNP elevated but better then previous stays. Possible component to SOB, but patient compliant with diet and home meds. Additional dose of torsemide given on 08/16 and 08/17 with improvement in LE swelling and breathing Continue home regimen Monitor Consider additional diuretics if change in respiratory status (7) Gastroesophageal reflux disease:
--- NOTE | 2020-08-19 09:07 | PM.PNCARD ---
Progress Note: A&P Assessment and Plan (1) Chest discomfort: Code(s): R07.89 - Other chest pain Status: Acute Assessment and Plan: 80 y/o with h/o CAD s/p LAD stent few months ago, COPD, sleep apnea, diastolic CHF, recent COVID pneumonia, chronic A fib who is seen in cardiac consultation for chest pain Chest pain is atypical and in the setting of COPD exacerbation and recent COVID. Also history of hiatal hernia Troponin negative and no acute EKG changes Recent ECHO showed normal LV systolic function (LVEF 55-60%) cont ASA and Plavix Okay to proceed with EGD with acceptable risk from cardiac standpoint (2) CAD (coronary artery disease): Qualifiers: Coronary Disease-Associated Artery/Lesion type: [place] artery [place] vs. transplanted heart: [place] heart Associated angina: without angina Qualified Code(s): I25.10 - Atherosclerotic heart disease of [place] coronary artery without angina pectoris Code(s): I25.10 - Atherosclerotic heart disease of [place] coronary artery without angina pectoris Status: Acute Assessment and Plan: Stable. (3) Afib: Code(s): I48.91 - Unspecified atrial fibrillation Status: Acute Assessment and Plan: HR well controlled (not on any blocking agents) On ASA and Plavix but not on NOAC or Coumadin at home. Currently on Lovenox at prophylactic dose. (4) Acute respiratory failure with hypoxia: Code(s): J96.01 - Acute respiratory failure with hypoxia Status: Acute Assessment and Plan: antibiotics and steroids per Primary service. Continue home dose of Torsemide. Agree with prn extra afternoon dose as needed. (5) Type 2 diabetes mellitus: Code(s): E11.9 - Type 2 diabetes mellitus without complications Status: Acute Subjective Date/time seen: 08/19/20 09:07 She feels better overall. Breathing is much better compared to admission. Still with intermittent chest discomfort. She is going for EGD later today. Review of Systems Review of Systems: All systems reviewed & are unremarkable except as noted in HPI and below Constitutional: Constitutional: Denies fatigue and Denies headache(s) Eyes: Eyes: Denies blurry vision ENT: Reports Normal hearing present and Denies headache(s) Cardiovascular: Cardiovascular: Denies chest pain, Denies diaphoresis, Denies pedal edema, Denies leg edema, Denies lightheadedness, Denies palpitations and Denies dyspnea Respiratory: Respiratory: Denies cough and Denies dyspnea Gastrointestinal: Gastrointestinal: Denies abdominal pain Musculoskeletal: Musculoskeletal: Denies back pain Neurologic: Reports Normal hearing present and Denies headache(s) Psychiatric: Psychiatric: Denies anxiety Endocrine: Endocrine: Denies fatigue and Denies palpitations Exam Narrative: Exam Narrative: General: Patient resting supine in bed in no acute distress; HEENT: Normocephalic, EOMI, oral mucosa moist. Cardiovascular: Rate and rhythm are irregularly irregular with moderate rate. No notable murmur, rub, or gallop. Respiratory: Occasional scattered rhonchi. She speaks in long sentences. Non-labored breathing. No respiratory distress. Abdomen: Soft, obese abdomen. Extremities: Peripheral pulses intact. bilateral LE edema, mild improvement. Neuro: No focal neurological deficits. Speech is clear. Objective Data Vital Signs Vital Signs: Vital Signs - 24 hr 08/18/20 09:15 08/18/20 12:00 08/18/20 14:00 Temperature 36.6 C Pulse Rate 74 88 Respiratory Rate 22 H Blood Pressure 105/53 L Pulse Oximetry 92 92 08/18/20 14:42 08/18/20 16:00 08/18/20 16:47 Temperature Pulse Rate 79 77 Respiratory Rate 18 Blood Pressure 116/58 L Pulse Oximetry 08/18/20 20:00 08/18/20 20:38 08/18/20 20:49 Temperature Pulse Rate 90 72 71 Respiratory Rate 18 18 Blood Pressure Pulse Oximetry 94 94 08/18/20 22:17 08/18/20 23:47 08/19/20 00:00 Temperat
--- NOTE | 2020-08-19 11:20 | PCRCNOTE ---
pt unavailable for breathing treatment
--- NOTE | 2020-08-19 11:25 | WPDANESEPPF ---
Anes - Initial Pre Proc Eval Procedure: Operation Date: 08/19/20 12:00 Proposed Procedures p Esophagogastroduodenoscopy - Fabien Chaudhari MD Date/Time: 08/19/20 11:25 Surgeon: Gilson Harrison PA-C Pre Op Diagnosis: Acute respiratory failure with hypoxia, Patient Data Age: 80 Gender: F Height: 1.63 m Weight: 108.3 kg Last Vital Signs Temp 36.3 C L 08/18/20 22:17 Pulse 71 08/19/20 08:00 Resp 18 08/19/20 01:57 BP 126/63 08/18/20 22:17 Pulse Ox 97 08/19/20 08:30 Allergies Allergy/AdvReac Type Severity Reaction Status Date / Time amitriptyline Allergy Unknown Unknown Verified 08/19/20 11:25 chlordiazepoxide Allergy Unknown Unknown Verified 08/19/20 11:25 Home Medications Medication Instructions Recorded Confirmed Type amlodipine 5 mg PO DAILY 06/07/20 08/13/20 History atorvastatin 80 mg PO DAILY 06/07/20 08/13/20 History biotin 1 mg PO DAILY 06/07/20 08/13/20 History calcitriol 0.25 mcg PO DAILY 06/07/20 08/13/20 History cranberry extract 250 mg PO DAILY 06/07/20 08/13/20 History fenofibrate nanocrystallized 145 mg PO DAILY 06/07/20 08/13/20 History isosorbide mononitrate 30 mg PO DAILY 06/07/20 08/13/20 History pantoprazole 40 mg PO DAILY 06/07/20 08/13/20 History pregabalin 200 mg PO BID 06/07/20 08/13/20 History torsemide 20 mg PO DAILY 06/07/20 08/13/20 History Aloe Otto Antifungal (micon) 1 applic TOPICAL Q12HR #1692 g 06/16/20 08/13/20 Rx Lantus Solostar U-100 Insulin 10 unit SUBCUT DAILY #0 ml 06/16/20 08/13/20 Rx Minerin Creme 1 applic TOPICAL QAM #454 g 06/16/20 08/13/20 Rx albuterol sulfate [ProAir HFA] 2 puff INHALATION Q4-6H PRN #0 g 06/16/20 08/13/20 Rx aspirin 81 mg PO QAM #30 tablet 06/16/20 08/13/20 Rx clopidogrel 75 mg PO QAM #30 tablet 06/16/20 08/13/20 Rx ferrous sulfate 324 mg PO BIDWM #60 tablet 06/16/20 08/13/20 Rx nitroglycerin [Nitrostat] 0.4 mg SUBLINGUAL Q5MIN PRN #20 06/16/20 08/13/20 Rx tablet tizanidine 4 mg PO HS #0 tablet 06/16/20 08/13/20 Rx tizanidine 4 mg PO BID PRN 06/19/20 08/13/20 History budesonide-formoterol [Symbicort] 2 puff INHALATION Q12HRT #1 puff 06/23/20 08/13/20 Rx colchicine 0.6 mg PO BID #14 cap 06/23/20 08/13/20 Rx hydralazine 25 mg PO BID #60 tablet 06/23/20 08/13/20 Rx lidocaine [Lidoderm] 1 patch TRANSDERMAL DAILY #10 ea 06/23/20 08/13/20 Rx magnesium oxide 400 mg PO QAM #30 tablet 06/23/20 08/13/20 Rx albuterol sulfate [Proventil HFA] 4 puff INHALATION QIDRT #1 inh 07/03/20 08/13/20 Rx tizanidine [Zanaflex] 4 mg PO Q12HR PRN #30 tablet 07/03/20 08/13/20 Rx hydrocodone-acetaminophen [[place]] 1 tablet PO Q8H PRN #20 tablet 07/04/20 08/13/20 Rx Laboratory Tests 08/18/20 08/18/20 08/18/20 13:13 16:40 22:05 WBC RBC Hgb Hct MCV MCH MCHC RDW Plt Count MPV Sodium Potassium Chloride Carbon Dioxide Anion Gap BUN Creatinine Estim Creat Clear Calc Estimated GFR Glucose POC Capillary Glucose 213 mg/dl H mg/dl 295 mg/dl H mg/dl 183 mg/dl H mg/dl (65-105) (65-105) (65-105) Calcium Magnesium 08/19/20 08/19/20 08/19/20 05:19 05:19 08:21 WBC 7.5 K/mm3 K/mm3 (4.5-10.0) RBC 2.94 M/mm3 L M/mm3 (4.2-5.4) Hgb 8.6 g/dL L g/dL (12.0-15.0) Hct 29.5 % L % (37.0-47.0) MCV 100.3 fl H fl (80-100) MCH 29.3 pg pg (26-34) MCHC 29.2 g/dl L g/dl (32-36) RDW 17.3 % H % (11.5-14.5) Plt Count 193 k/mm3 k/mm3 (150-375) MPV 11.6 fl H fl (7.4-10.4) Sodium 137 mmol/L mmol/L (137-145) Potassium 3.5 mmol/L mmol/L (3.4-5.0) Chloride 87 mmol/L L mmol/L (98-107) Carbon Dioxide > 40 mmol/L H mmol/L (22-30) Anion Gap
--- NOTE | 2020-08-19 11:26 | PC.NURSE ---
To GI Lab per aliya, IV saline locked. Report given to Sarina JUDGE.
[2020-08-19 11:50] LABS: Glucose Point of Care 120 (65-105)
[2020-08-19] MEDS: LACTATED RINGERS 1,000 ML 150 ML IV CONT (11:51)
[2020-08-19] MEDS: ATORVASTATIN 40 MG TABLET 80 MG PO (13:31)
[2020-08-19] MEDS: PANTOPRAZOLE 40 MG TABLET PO ×2 (13:31→20:58)
[2020-08-19] MEDS: FERROUS SULFATE 324 MG TABLET PO ×2 (13:31→20:58)
[2020-08-19] MEDS: predniSONE 20 MG TABLET 40 MG PO (13:31)
[2020-08-19] MEDS: FENOFIBRATE NANOCRYSTALLIZED 145 MG TABLET PO (13:32)
[2020-08-19] MEDS: amLODIPine BESYLATE 5 MG TABLET PO (13:32)
[2020-08-19] MEDS: guaiFENesin 12 HR 600 MG TABCR PO ×2 (13:33→20:59)
[2020-08-19] MEDS: HYDROcodone/acetaminophen (*CRX) 5-325 MG TABLET 1 TAB PO (13:33)
[2020-08-19] MEDS: ASPIRIN 81 MG ENTERIC TABLET PO (13:33)
[2020-08-19] MEDS: MAGNESIUM OXIDE 400 MG TABLET PO (13:33)
[2020-08-19] MEDS: hydrALAZINE HCL 25 MG TABLET PO ×2 (13:34→20:58)
[2020-08-19] MEDS: TIZANIDINE HCL 4 MG TABLET PO (13:34)
[2020-08-19] MEDS: LOSARTAN POTASSIUM 12.5 MG TABLET PO (13:34)
[2020-08-19] MEDS: TORSEMIDE 20 MG TABLET PO (13:34)
[2020-08-19] MEDS: CALCIUM CARBONATE (TUMS) 500 MG (200 MG ELEMENTAL) PO (13:34)
[2020-08-19] MEDS: ISOSORBIDE MONONITRATE 30 MG TAB.ER.24H PO (13:34)
[2020-08-19] MEDS: calcitrioL 0.25 MCG CAPSULE PO (13:34)
[2020-08-19] MEDS: CLOPIDOGREL BISULFATE 75 MG TABLET PO (13:35)
[2020-08-19] MEDS: ENOXAPARIN 40 MG/0.4 ML SYRINGE SUB-Q (13:35)
[2020-08-19] MEDS: LIDOCAINE 5% PATCH 1 PATCH TRANSDERM (13:36)
[2020-08-19] MEDS: EUCERIN CREAM 120 GM JAR 1 APPLIC TOPICAL (13:36)
[2020-08-19] MEDS: BISACODYL 5 MG TABLET EC PO (13:39)
[2020-08-19] MEDS: PREGABALIN (*CRX) 50 MG CAPSULE 200 MG PO ×2 (13:39→20:57)
[2020-08-19 13:53] LABS: Glucose Point of Care 117 (65-105)
--- NOTE | 2020-08-19 14:07 | PC.NURSE ---
Returned from GI Lab. Report received from Maya JUDGE.
[2020-08-19 16:33] LABS: Glucose Point of Care 131 (65-105)
[2020-08-19] MEDS: ACETAMINOPHEN 325 MG TABLET 650 MG PO (19:41)
[2020-08-19 21:49] LABS: Glucose Point of Care 221 (65-105)
[2020-08-20] VITALS (20 sets, daily range): BP systolic 97–151; BP diastolic 55–84; PULSE 54–105; RESP 16–22; TEMP 36.3–36.6; O2SAT 91–98
[2020-08-20] MEDS: HYDROcodone/acetaminophen (*CRX) 5-325 MG TABLET 1 TAB PO ×2 (01:15→13:21)
[2020-08-20] MEDS: ACETAMINOPHEN 325 MG TABLET 650 MG PO ×2 (03:55→18:53)
[2020-08-20] MEDS: IPRATROPIUM BR 0.02% INH SOLN 0.5 MG/2.5 ML VIAL INHALATION ×4 (04:06→19:54)
[2020-08-20] MEDS: LEVALBUTEROL NEB 1.25 MG/3 ML 0.63 MG INHALATION ×4 (04:06→19:54)
[2020-08-20 05:15] LABS: Hemoglobin 8.7 g/dL (12.0-15.0); Mean Corpuscular Hemoglobin 29.7 pg (26-34); Mean Platelet Volume 10.9 fl (7.4-10.4); Platelet Count Result 204 k/mm3 (150-375); Red Blood Count 2.93 M/mm3 (4.2-5.4); Red Cell Distribution Width 17.4 % (11.5-14.5); White Blood Count 6.7 K/mm3 (4.5-10.0)
[2020-08-20 07:10] LABS: Blood Urea Nitrogen 49 mg/dL (7-17); Calcium 8.4 mg/dL (8.4-10.2); Carbon Dioxide > 40 mmol/L (22-30); Chloride 89 mmol/L (98-107); Estimated CRCL calculation 41 ml/min; Estimated Glomerular Filt Rate 43; Glucose 140 mg/dL (65-105); Magnesium 2.1 mg/dL (1.6-2.3); Potassium 3.5 mmol/L (3.4-5.0); Sodium 139 mmol/L (137-145)
[2020-08-20 08:14] LABS: Glucose Point of Care 125 (65-105)
--- NOTE | 2020-08-20 08:53 | WPDANESPN ---
Anes - Prog Note Post-Op Date/Time: 08/20/20 08:53 Cardiovascular status: normal Respiratory status: normal Airway patency: baseline Mental status: baseline Post-Op hydration status: normal Vital Signs: Last Vital Signs Temp 36.3 C L 08/20/20 05:01 Pulse 71 08/20/20 05:01 Resp 20 08/20/20 05:01 BP 138/59 L 08/20/20 05:01 Pulse Ox 91 08/20/20 05:01 Pain Score (VAS): 0 I/O: Intake & Output 08/19/20 08/20/20 08/20/20 23:59 07:59 15:59 Intake Total 680 390 Output Total 600 850 Balance 80 -460 Laboratory Tests 08/20/20 05:10 08/20/20 05:10 08/19/20 08/19/20 08/19/20 11:35 13:45 16:23 WBC RBC Hgb Hct MCV MCH MCHC RDW Plt Count MPV Sodium Potassium Chloride Carbon Dioxide Anion Gap BUN Creatinine Estim Creat Clear Calc Estimated GFR Glucose POC Capillary Glucose 120 H 117 H 131 H Calcium Magnesium 08/19/20 08/20/20 08/20/20 21:43 05:10 05:10 WBC 6.7 RBC 2.93 L Hgb 8.7 L Hct 29.0 L MCV 99.0 MCH 29.7 MCHC 30.0 L RDW 17.4 H Plt Count 204 MPV 10.9 H Sodium 139 Potassium 3.5 Chloride 89 L Carbon Dioxide > 40 H Anion Gap BUN 49 H Creatinine 1.20 H Estim Creat Clear Calc 41 Estimated GFR 43 L Glucose 140 H POC Capillary Glucose 221 H Calcium 8.4 Magnesium 2.1 08/20/20 08:11 WBC RBC Hgb Hct MCV MCH MCHC RDW Plt Count MPV Sodium Potassium Chloride Carbon Dioxide Anion Gap BUN Creatinine Estim Creat Clear Calc Estimated GFR Glucose POC Capillary Glucose 125 H Calcium Magnesium Post-procedural complaints: none Patient Feedback: Patient satisfied with anesthetic care.
[2020-08-20] MEDS: hydrALAZINE HCL 25 MG TABLET PO ×2 (08:54→17:06)
[2020-08-20] MEDS: LIDOCAINE 5% PATCH 1 PATCH TRANSDERM (08:54)
[2020-08-20] MEDS: TIZANIDINE HCL 4 MG TABLET PO (08:55)
[2020-08-20] MEDS: ATORVASTATIN 40 MG TABLET 80 MG PO (08:55)
[2020-08-20] MEDS: MAGNESIUM OXIDE 400 MG TABLET PO (08:55)
[2020-08-20] MEDS: LOSARTAN POTASSIUM 12.5 MG TABLET PO (08:55)
[2020-08-20] MEDS: TORSEMIDE 20 MG TABLET PO ×2 (08:55→17:07)
[2020-08-20] MEDS: calcitrioL 0.25 MCG CAPSULE PO (08:55)
[2020-08-20] MEDS: ASPIRIN 81 MG ENTERIC TABLET PO (08:55)
[2020-08-20] MEDS: amLODIPine BESYLATE 5 MG TABLET PO (08:56)
[2020-08-20] MEDS: FENOFIBRATE NANOCRYSTALLIZED 145 MG TABLET PO (08:56)
[2020-08-20] MEDS: predniSONE 20 MG, predniSONE 10 MG 30 MG PO (08:56)
[2020-08-20] MEDS: FERROUS SULFATE 324 MG TABLET PO ×2 (08:56→17:05)
[2020-08-20] MEDS: PANTOPRAZOLE 40 MG TABLET PO ×2 (08:57→22:11)
[2020-08-20] MEDS: ISOSORBIDE MONONITRATE 30 MG TAB.ER.24H PO (08:57)
[2020-08-20] MEDS: CLOPIDOGREL BISULFATE 75 MG TABLET PO (08:57)
[2020-08-20] MEDS: ENOXAPARIN 40 MG/0.4 ML SYRINGE SUB-Q (08:57)
[2020-08-20] MEDS: guaiFENesin 12 HR 600 MG TABCR PO ×2 (08:58→22:10)
[2020-08-20] MEDS: EUCERIN CREAM 120 GM JAR 1 APPLIC TOPICAL (08:58)
[2020-08-20] MEDS: INSULIN GLARGINE (*BKC) 100 UNITS/ML 10 UNITS SUB-Q (09:01)
[2020-08-20] MEDS: PREGABALIN (*CRX) 50 MG CAPSULE 200 MG PO ×2 (09:01→17:11)
--- NOTE | 2020-08-20 09:04 | PM.PNCARD ---
Progress Note: A&P Assessment and Plan (1) Chest discomfort: Code(s): R07.89 - Other chest pain Status: Acute Assessment and Plan: 80 y/o with h/o CAD s/p LAD stent in May 2020, COPD, sleep apnea, diastolic CHF, recent COVID pneumonia, chronic A fib who is seen in cardiac consultation for chest pain Chest pain is atypical and in the setting of COPD exacerbation and recent COVID. Also had EGD yesterday that revealed esophagitis and hiatal hernia Troponin negative and no acute EKG changes Recent ECHO showed normal LV systolic function (LVEF 55-60%) cont ASA and Plavix (2) Acute respiratory failure with hypoxia: Code(s): J96.01 - Acute respiratory failure with hypoxia Status: Acute Assessment and Plan: Will increase Torsemide dose to BID with close monitoring of in/out and kidney function. Creatinine is stable ~ 1.2 Consider repeat chest X ray antibiotics and steroids per Primary service. (3) CAD (coronary artery disease): Qualifiers: Coronary Disease-Associated Artery/Lesion type: [place] artery [place] vs. transplanted heart: [place] heart Associated angina: without angina Qualified Code(s): I25.10 - Atherosclerotic heart disease of [place] coronary artery without angina pectoris Code(s): I25.10 - Atherosclerotic heart disease of [place] coronary artery without angina pectoris Status: Acute Assessment and Plan: Stable. (4) Afib: Code(s): I48.91 - Unspecified atrial fibrillation Status: Acute Assessment and Plan: HR well controlled (not on any blocking agents) On ASA and Plavix but not on NOAC or Coumadin at home. Currently on Lovenox at prophylactic dose. (5) Type 2 diabetes mellitus: Code(s): E11.9 - Type 2 diabetes mellitus without complications Status: Acute Subjective Date/time seen: 08/20/20 09:04 Does not feel well this am. Can't specify why but she admits to back pain and chest pressure. Denies dyspnea. Review of Systems Review of Systems: All systems reviewed & are unremarkable except as noted in HPI and below Constitutional: Constitutional: Denies fatigue and Denies headache(s) Eyes: Eyes: Denies blurry vision ENT: Reports Normal hearing present and Denies headache(s) Cardiovascular: Cardiovascular: Denies chest pain, Denies diaphoresis, Denies pedal edema, Denies leg edema, Denies lightheadedness, Denies palpitations and Denies dyspnea Respiratory: Respiratory: Denies cough and Denies dyspnea Gastrointestinal: Gastrointestinal: Denies abdominal pain Musculoskeletal: Musculoskeletal: Denies back pain Neurologic: Reports Normal hearing present and Denies headache(s) Psychiatric: Psychiatric: Denies anxiety Endocrine: Endocrine: Denies fatigue and Denies palpitations Exam Narrative: Exam Narrative: General: Patient resting supine in bed in no acute distress; HEENT: Normocephalic, EOMI, oral mucosa moist. Cardiovascular: Rate and rhythm are irregularly irregular with moderate rate. No notable murmur, rub, or gallop. Respiratory: Occasional scattered rhonchi. She speaks in long sentences. Non-labored breathing. No respiratory distress. Abdomen: Soft, obese abdomen. Extremities: Peripheral pulses intact. bilateral LE edema, mild improvement. Neuro: No focal neurological deficits. Speech is clear. Neuro: Cranial nerves: Yes Normal hearing present Objective Data Vital Signs Vital Signs: Vital Signs - 24 hr 08/19/20 11:20 08/19/20 12:35 08/19/20 12:45 Temperature 36.8 C Pulse Rate 87 84 84 Respiratory Rate 22 H 22 H 23 H Blood Pressure 145/73 H 110/67 142/63 H Pulse Oximetry 96 94 94 08/19/20 12:55 08/19/20 14:05 08/19/20 14:57 Temperature 36.6 C Pulse Rate 79 85 65 Respiratory Rate 20 16 18 Blood Pressure 135/58 L 133/53 L Pulse Oximetry 94 95 08/19/20 16:00 08/19/20 20:00 08/19/20 22:00 Temperature 36.6 C Pulse Rate 66 76 83 Respiratory Rate 22 H
[2020-08-20 11:22] LABS: Glucose Point of Care 322 (65-105)
[2020-08-20] MEDS: INSULIN ASPART (*BKC) 100 UNITS/ML SUB-Q ×2 (11:26→17:07)
--- NOTE | 2020-08-20 12:34 | PM.IMPN ---
Progress Note: A&P Assessment and Plan (1) COPD (chronic obstructive pulmonary disease): Code(s): J44.9 - Chronic obstructive pulmonary disease, unspecified Status: Acute Assessment and Plan: Continue prednisone taper Neb treatments Q6hr Continue home meds Albuterol rescue inhaler PRN IS/[place] PEP therapy ordered Augmentin course completed on 08/17 (5 days total) On RA today Hopeful DC in 1-2 days time (2) Acute respiratory failure with hypoxia: Code(s): J96.01 - Acute respiratory failure with hypoxia Status: Acute Assessment and Plan: Acute on chronic respiratory failure with hypoxia and chronic hypercapnia; wears 3 L at home normally. COPD exacerbation felt to be most likely. Has a recent history of COVID pneumonia as well. Improving (3) Chronic kidney disease, stage 3: Qualifiers: Chronic kidney disease stage 3 subtype: unspecified whether 3a or 3b Qualified Code(s): N18.30 - Chronic kidney disease, stage 3 unspecified Code(s): N18.30 - Chronic kidney disease, stage 3 unspecified Status: Acute Assessment and Plan: Appears to be at baseline; Cr 1.2 Monitor renal function during stay (4) Insulin dependent type 2 diabetes mellitus: Code(s): E11.9 - Type 2 diabetes mellitus without complications; Z79.4 - CHCF (current) use of insulin Status: Acute Assessment and Plan: Accuchecks ACHS, hypoglycemia protocol, correctional insulin, Low sodium diet Will continue home 10 u Long acting insulin Monitor accuchecks (5) CAD (coronary artery disease): Qualifiers: Coronary Disease-Associated Artery/Lesion type: [place] artery [place] vs. transplanted heart: [place] heart Associated angina: without angina Qualified Code(s): I25.10 - Atherosclerotic heart disease of [place] coronary artery without angina pectoris Code(s): I25.10 - Atherosclerotic heart disease of [place] coronary artery without angina pectoris Status: Acute Assessment and Plan: Patient apparently had chest pain overnight on 08/15. Troponins drawn and negative x 2. Cardiology rounding (6) CHF (congestive heart failure): Qualifiers: Heart failure type: diastolic Heart failure chronicity: acute on chronic Qualified Code(s): I50.33 - Acute on chronic diastolic (congestive) heart failure Code(s): I50.9 - Heart failure, unspecified Status: Acute Assessment and Plan: Patient has LE swelling. Torsemide dose to BID continue to watch creat levels (7) Gastroesophageal reflux disease: Code(s): K21.9 - Gastro-esophageal reflux disease without esophagitis Status: Inactive Assessment and Plan: Will continue increased PPI at Q12hr Will continue with Tums PRN. Encouraged her to ask for the medication if needed Will do bisacodyl prn for constipation GI consultation SP EGD yesterday showing gastritis and hiatal hernia Subjective Date/time seen: 08/20/20 12:34 Interval history: Patient is a 80 yo F with history of hypertension, type 2 diabetes mellitus, COPD with chronic respiratory failure on 3 L nasal cannula, congestive heart failure and several other comorbidities who is seen in follow up for COPD exacerbation and acute on chronic respiratory failure with hypoxia and chronic hypercapnia. Pt is getting better less wheezy and SOB today, hopeful dc in 1-2 days time Review of Systems Review of Systems: All systems reviewed & are unremarkable except as noted in HPI and below Exam Narrative: Exam Narrative: General: Patient awake alert holding conversation HEENT: Normocephalic Cardiovascular: Rate and rhythm are regular. No notable murmur, rub, or gallop. Respiratory: Lungs few wheezes at bases Abdomen: Soft, obese abdomen, Non tender,
[2020-08-20] MEDS: CALCIUM CARBONATE (TUMS) 500 MG (200 MG ELEMENTAL) PO (13:21)
[2020-08-20 17:04] LABS: Glucose Point of Care 205 (65-105)
--- NOTE | 2020-08-20 17:13 | WPDGIPROGNO ---
Progress Note: A&P Assessment and Plan (1) Large hiatal hernia: Code(s): K44.9 - Diaphragmatic hernia without obstruction or gangrene Status: Acute Assessment and Plan: can explain part of symptoms also found gastritis (stomach bx reviewed, also had mild esophagitis in bx) (2) Gastritis: Code(s): K29.70 - Gastritis, unspecified, without bleeding Status: Acute Assessment and Plan: on ppi, diet as tolerated (eat small amount) (3) COPD (chronic obstructive pulmonary disease): Code(s): J44.9 - Chronic obstructive pulmonary disease, unspecified Status: Acute Assessment and Plan: on medical treatment (4) Morbid obesity with BMI of 40.0-44.9, adult: Code(s): E66.01 - Morbid (severe) obesity due to excess calories; Z68.41 - Body mass index [BMI]40.0-44.9, adult Status: Acute (5) Chest discomfort: Code(s): R07.89 - Other chest pain Status: Acute Subjective Date/time seen: 08/20/20 17:13 Interval history: today not having a good day because shortness of breath, she ate. EGD yesterday showed large hiatal hernia and gastritis. Review of Systems Review of Systems: All systems reviewed & are unremarkable except as noted in HPI and below Exam Const: General: comfortable (using oxygen by NC and talking comfortable, feels better) and no acute distress Nutritional Appearance: obese HENMT: General nose exam: Normal nares present Eyes: General: appearance normal, both eyes and all related structures Neck: Neck: no JVD Resp: Auscultation: no wheezes and diminished lung sounds Cardio: Rate: regular rate Rhythm: regular rhythm GI: Inspection: non-distended GI Palp: Yes Soft to palpation and No Tenderness to palpation present (GI) Auscultation: normal bowel sounds Skin: General skin exam: normal color Neuro: Speech: normal speech Motor exam (neuro): Normal motor muscle tone present throughout Extrem: General: normal to inspection Psych: Mental Status: mental status grossly normal Objective Data Vital Signs Vital Signs: Vital Signs - 24 hr 08/19/20 20:00 08/19/20 22:00 08/19/20 22:19 Temperature 97.9 F Pulse Rate 76 83 83 Respiratory Rate 22 H 18 Blood Pressure 123/54 L Pulse Oximetry 95 90 08/19/20 22:34 08/20/20 00:00 08/20/20 04:00 Temperature Pulse Rate 83 75 105 H Respiratory Rate 18 Blood Pressure Pulse Oximetry 92 08/20/20 04:04 08/20/20 04:07 08/20/20 04:25 Temperature Pulse Rate 60 63 61 Respiratory Rate 18 20 19 Blood Pressure Pulse Oximetry 96 08/20/20 05:01 08/20/20 08:00 08/20/20 08:13 Temperature 97.4 F L Pulse Rate 71 73 91 Respiratory Rate 20 18 Blood Pressure 138/59 L Pulse Oximetry 91 95 08/20/20 08:23 08/20/20 09:01 08/20/20 10:00 Temperature 97.9 F Pulse Rate 92 92 Respiratory Rate 18 20 16 Blood Pressure 97/55 L Pulse Oximetry 91 92 08/20/20 12:00 08/20/20 14:00 08/20/20 14:34 Temperature 97.6 F Pulse Rate 69 54 L 76 Respiratory Rate 22 H 18 Blood Pressure 130/58 L Pulse Oximetry 97 08/20/20 16:00 Temperature Pulse Rate 81 Respiratory Rate Blood Pressure Pulse Oximetry Intake/Output Intake/Output: Intake & Output 08/17/20 08/18/20 08/19/20 08/20/20 23:59 23:59 23:59 23:59 Intake Total 1510 2110 1030 1230 Output Total 3450 2600 1800 850 Balance -1940 -490 -770 380 Meds/Results Medications: Active Medications Generic Name Dose Route Start Last Admin Trade Name Freq PRN Reason Stop Dose Admin Acetaminophen 650 mg 08/15/20 15:33 08/20/20 03:55 Acetaminophen 325 Mg Tablet PO 650 mg Q6H PRN Administration Mild Pain (1-3) or Fever Hydrocodone Bitart/Acetaminophen 1 tab 08/13/20 06:03 08/20/20 13:21 Hydrocodone/Acetaminophen (*Crx) 5-325 Mg Tablet PO 1 tab Q8H PRN Administration pain Albuterol 4 puff 08/14/20 09:45 Albuterol Sulfate (*Sp) Aerosol 1 Puff INHALATIO
[2020-08-20 20:34] LABS: Glucose Point of Care 297 (65-105)
[2020-08-21] VITALS (17 sets, daily range): BP systolic 111–154; BP diastolic 58–79; PULSE 59–104; RESP 16–23; TEMP 36–36.6; O2SAT 94–96
[2020-08-21] MEDS: LEVALBUTEROL NEB 1.25 MG/3 ML 0.63 MG INHALATION ×4 (01:20→20:35)
[2020-08-21] MEDS: IPRATROPIUM BR 0.02% INH SOLN 0.5 MG/2.5 ML VIAL INHALATION ×4 (01:20→20:35)
[2020-08-21] MEDS: ACETAMINOPHEN 325 MG TABLET 650 MG PO ×2 (04:11→21:54)
[2020-08-21] MEDS: HYDROcodone/acetaminophen (*CRX) 5-325 MG TABLET 1 TAB PO ×2 (05:24→13:24)
[2020-08-21 06:15] LABS: Hematocrit 31.7 % (37.0-47.0); Hemoglobin 9.4 g/dL (12.0-15.0); Mean Corpuscular HGB Conc 29.7 g/dl (32-36); Mean Corpuscular Hemoglobin 29.4 pg (26-34); Mean Corpuscular Volume 99.1 fl (80-100); Mean Platelet Volume 11.7 fl (7.4-10.4); Platelet Count Result 226 k/mm3 (150-375); Red Cell Distribution Width 17.3 % (11.5-14.5); White Blood Count 7.6 K/mm3 (4.5-10.0)
[2020-08-21 06:35] LABS: Blood Urea Nitrogen 46 mg/dL (7-17); Calcium 8.6 mg/dL (8.4-10.2); Carbon Dioxide > 40 mmol/L (22-30); Chloride 88 mmol/L (98-107); Estimated CRCL calculation 38 ml/min; Estimated Glomerular Filt Rate 40; Glucose 102 mg/dL (65-105); Potassium 3.3 mmol/L (3.4-5.0); Sodium 139 mmol/L (137-145)
[2020-08-21 07:28] LABS: Glucose Point of Care 146 (65-105)
[2020-08-21] MEDS: LIDOCAINE 5% PATCH 1 PATCH TRANSDERM (08:20)
[2020-08-21] MEDS: FENOFIBRATE NANOCRYSTALLIZED 145 MG TABLET PO (08:21)
[2020-08-21] MEDS: LOSARTAN POTASSIUM 12.5 MG TABLET PO (08:21)
[2020-08-21] MEDS: calcitrioL 0.25 MCG CAPSULE PO (08:21)
[2020-08-21] MEDS: PANTOPRAZOLE 40 MG TABLET PO ×2 (08:21→21:59)
[2020-08-21] MEDS: ASPIRIN 81 MG ENTERIC TABLET PO (08:21)
[2020-08-21] MEDS: ISOSORBIDE MONONITRATE 30 MG TAB.ER.24H PO (08:21)
[2020-08-21] MEDS: ENOXAPARIN 40 MG/0.4 ML SYRINGE SUB-Q (08:21)
[2020-08-21] MEDS: PREGABALIN (*CRX) 50 MG CAPSULE 200 MG PO ×2 (08:21→18:30)
[2020-08-21] MEDS: MAGNESIUM OXIDE 400 MG TABLET PO (08:22)
[2020-08-21] MEDS: CLOPIDOGREL BISULFATE 75 MG TABLET PO (08:22)
[2020-08-21] MEDS: FERROUS SULFATE 324 MG TABLET PO ×2 (08:22→18:28)
[2020-08-21] MEDS: guaiFENesin 12 HR 600 MG TABCR PO ×2 (08:22→21:57)
[2020-08-21] MEDS: TORSEMIDE 20 MG TABLET PO (08:22)
[2020-08-21] MEDS: predniSONE 20 MG, predniSONE 10 MG 30 MG PO (08:22)
[2020-08-21] MEDS: amLODIPine BESYLATE 5 MG TABLET PO (08:22)
[2020-08-21] MEDS: hydrALAZINE HCL 25 MG TABLET PO ×2 (08:22→18:29)
[2020-08-21] MEDS: ATORVASTATIN 40 MG TABLET 80 MG PO (08:22)
[2020-08-21] MEDS: EUCERIN CREAM 120 GM JAR 1 APPLIC TOPICAL (08:27)
[2020-08-21] MEDS: INSULIN GLARGINE (*BKC) 100 UNITS/ML 10 UNITS SUB-Q (08:32)
--- NOTE | 2020-08-21 09:43 | PM.PNCARD ---
Progress Note: A&P Assessment and Plan (1) Acute respiratory failure with hypoxia: Code(s): J96.01 - Acute respiratory failure with hypoxia Status: Acute Assessment and Plan: 80 y/o with h/o CAD s/p LAD stent in May 2020, COPD, sleep apnea, diastolic CHF, recent COVID pneumonia, chronic A fib who is seen in cardiac consultation for chest pain and dyspnea Continue to be volume overloaded despite increase torsemide dose to BID. Will switch to IV loop diuretics with BID schedule Repeat chest X ray Need to be more aggressive in replacing her K antibiotics and steroids per Primary service. (2) Chest discomfort: Code(s): R07.89 - Other chest pain Status: Acute Assessment and Plan: Chest pain is atypical and in the setting of COPD exacerbation and recent COVID. Also had EGD esophagitis/gastritis and large hiatal hernia Troponin negative and no acute EKG changes Recent ECHO showed normal LV systolic function (LVEF 55-60%) cont ASA and Plavix (3) CAD (coronary artery disease): Qualifiers: Coronary Disease-Associated Artery/Lesion type: [place] artery [place] vs. transplanted heart: [place] heart Associated angina: without angina Qualified Code(s): I25.10 - Atherosclerotic heart disease of [place] coronary artery without angina pectoris Code(s): I25.10 - Atherosclerotic heart disease of [place] coronary artery without angina pectoris Status: Acute Assessment and Plan: Stable. (4) Afib: Code(s): I48.91 - Unspecified atrial fibrillation Status: Acute Assessment and Plan: HR well controlled (not on any blocking agents) On ASA and Plavix but not on NOAC or Coumadin at home. Currently on Lovenox at prophylactic dose. (5) Type 2 diabetes mellitus: Code(s): E11.9 - Type 2 diabetes mellitus without complications Status: Acute Subjective Date/time seen: 08/21/20 09:43 Continues to feel poorly with lower ext edema, chest pressure and dyspnea. Torsemide dose was increased yesterday but she does not feel that it is making her urinate any more. Review of Systems Review of Systems: All systems reviewed & are unremarkable except as noted in HPI and below Constitutional: Constitutional: Denies fatigue and Denies headache(s) Eyes: Eyes: Denies blurry vision ENT: Reports Normal hearing present and Denies headache(s) Cardiovascular: Cardiovascular: Denies chest pain, Denies diaphoresis, Denies pedal edema, Denies leg edema, Denies lightheadedness, Denies palpitations and Denies dyspnea Respiratory: Respiratory: Denies cough and Denies dyspnea Gastrointestinal: Gastrointestinal: Denies abdominal pain Musculoskeletal: Musculoskeletal: Denies back pain Neurologic: Reports Normal hearing present and Denies headache(s) Psychiatric: Psychiatric: Denies anxiety Endocrine: Endocrine: Denies fatigue and Denies palpitations Exam Narrative: Exam Narrative: General: Patient resting supine in bed in no acute distress; HEENT: Normocephalic, EOMI, oral mucosa moist. Cardiovascular: Rate and rhythm are irregularly irregular with moderate rate. No notable murmur, rub, or gallop. Respiratory: Occasional scattered rhonchi. She speaks in long sentences. Non-labored breathing. No respiratory distress. Abdomen: Soft, obese abdomen. Extremities: Peripheral pulses intact. bilateral LE edema, mild improvement. Neuro: No focal neurological deficits. Speech is clear. Neuro: Cranial nerves: Yes Normal hearing present Objective Data Vital Signs Vital Signs: Vital Signs - 24 hr 08/20/20 10:00 08/20/20 12:00 08/20/20 14:00 Temperature 36.6 C 36.4 C Pulse Rate 92 69 54 L Respiratory Rate 16 22 H Blood Pressure 97/55 L 130/58 L Pulse Oximetry 92 97 08/20/20 14:34 08/20/20 16:00 08/20/20 18:00 Temperature 36.6 C Pulse Rate 76 81 87 Respiratory Rate 18 20 Blood Pressure 149/84 H Pulse Oximetry 96 08/20/20 19:56 12
[2020-08-21] MEDS: FUROSEMIDE INJ 40 MG/4 ML VIAL 20 MG IV PUSH (10:41)
--- NOTE | 2020-08-21 10:53 | PM.IMPN ---
Progress Note: A&P Assessment and Plan (1) COPD (chronic obstructive pulmonary disease): Code(s): J44.9 - Chronic obstructive pulmonary disease, unspecified Status: Acute Assessment and Plan: Continue prednisone taper Neb treatments Q6hr Continue home meds Albuterol rescue inhaler PRN IS/Cornet Augmentin course completed on 08/17 Pt is on 3 liters of oxygen her baseline , cxr ordered for reyna am (2) Acute respiratory failure with hypoxia: Code(s): J96.01 - Acute respiratory failure with hypoxia Status: Acute Assessment and Plan: Acute on chronic respiratory failure with hypoxia and chronic hypercapnia; wears 3 L at home normally. COPD exacerbation felt to be most likely. Has a recent history of COVID pneumonia as well. Improving (3) Chronic kidney disease, stage 3: Qualifiers: Chronic kidney disease stage 3 subtype: unspecified whether 3a or 3b Qualified Code(s): N18.30 - Chronic kidney disease, stage 3 unspecified Code(s): N18.30 - Chronic kidney disease, stage 3 unspecified Status: Acute Assessment and Plan: Appears to be at baseline; Cr 1.3 Monitor renal function during stay (4) Insulin dependent type 2 diabetes mellitus: Code(s): E11.9 - Type 2 diabetes mellitus without complications; Z79.4 - termination clerk (current) use of insulin Status: Acute Assessment and Plan: Accuchecks ACHS, hypoglycemia protocol, SSI Will continue home 10 u Long acting insulin Monitor accuchecks (5) CAD (coronary artery disease): Qualifiers: Coronary Disease-Associated Artery/Lesion type: [place] artery [place] vs. transplanted heart: [place] heart Associated angina: without angina Qualified Code(s): I25.10 - Atherosclerotic heart disease of [place] coronary artery without angina pectoris Code(s): I25.10 - Atherosclerotic heart disease of [place] coronary artery without angina pectoris Status: Chronic Assessment and Plan: Cardiology rounding no chest pain, chronic and stable. (6) CHF (congestive heart failure): Qualifiers: Heart failure type: diastolic Heart failure chronicity: acute on chronic Qualified Code(s): I50.33 - Acute on chronic diastolic (congestive) heart failure Code(s): I50.9 - Heart failure, unspecified Status: Acute Assessment and Plan: Patient has LE swelling. Cardiology prefers IV lasix to improve diuresis and UO. Cxr ordered for reyna AM (7) Gastroesophageal reflux disease: Code(s): K21.9 - Gastro-esophageal reflux disease without esophagitis Status: Inactive Assessment and Plan: Continue increased PPI at Q12hr SP EGD on admission showing gastritis and hiatal hernia Subjective Date/time seen: 08/21/20 10:53 Interval history: Patient is a 80 yo F with history of hypertension, type 2 diabetes mellitus, COPD with chronic respiratory failure on 3 L nasal cannula, congestive heart failure and several other comorbidities who is seen in follow up for COPD exacerbation and acute on chronic respiratory failure with hypoxia and chronic hypercapnia. Pt ankles are still swollen and appears SOB. Cardiology wants to give iv lasix for improve diuresis and UO. Hopeful DC in 1-2 days time. Review of Systems Review of Systems: All systems reviewed & are unremarkable except as noted in HPI and below Exam Narrative: Exam Narrative: General: Patient awake alert holding conversation Overweight, elderly lady HEENT: Normocephalic Cardiovascular: Rate and rhythm are regular. Respiratory: Lungs few wheezes at bases Abdomen: Soft, obese abdomen, Non tender, BS present Extremities: Peripheral pulses intact. B/l LE edema Neuro: No focal neurological deficits. Speech is clear. Objective Data Vital Sign
[2020-08-21 11:59] LABS: Glucose Point of Care 196 (65-105)
[2020-08-21] MEDS: ONDANSETRON INJ 4 MG/2 ML VIAL IV PUSH (13:25)
[2020-08-21] MEDS: TIZANIDINE HCL 4 MG TABLET PO ×2 (13:25→21:57)
[2020-08-21] MEDS: CALCIUM CARBONATE (TUMS) 500 MG (200 MG ELEMENTAL) PO (14:39)
[2020-08-21] MEDS: INSULIN ASPART (*BKC) 100 UNITS/ML SUB-Q (18:26)
[2020-08-21] MEDS: FUROSEMIDE INJ 40 MG/4 ML VIAL IV PUSH (18:28)
[2020-08-21 18:31] LABS: Glucose Point of Care 221 (65-105)
[2020-08-21 22:47] LABS: Glucose Point of Care 258 (65-105)
[2020-08-22] VITALS (19 sets, daily range): BP systolic 105–128; BP diastolic 44–64; PULSE 55–96; RESP 16–20; TEMP 36.2–36.3; O2SAT 97–100
[2020-08-22] MEDS: LEVALBUTEROL NEB 1.25 MG/3 ML 0.63 MG INHALATION ×4 (02:45→21:11)
[2020-08-22] MEDS: IPRATROPIUM BR 0.02% INH SOLN 0.5 MG/2.5 ML VIAL INHALATION ×4 (02:45→21:11)
[2020-08-22] MEDS: HYDROcodone/acetaminophen (*CRX) 5-325 MG TABLET 1 TAB PO ×2 (03:10→14:32)
--- NOTE | 2020-08-22 03:15 | ECG_ITS ---
Measurements Intervals [place] Rate: 57 P: [place]: 0 QRS: -4 QRSD: 158 T: 79 QT: 473 QTc: 461 Interpretive Statements ATRIAL FIBRILLATION WITH SLOW VENTRICULAR RESPONSE LEFT BUNDLE BRANCH BLOCK ANTEROSEPTAL INFARCT OR DUE TO LBBB ABNORMAL ECG Electronically Signed On 08-22-2020 8:01:30 [facility] DIAL by Rick Zapata D.O.
--- NOTE | 2020-08-22 03:28 | PC.NURSE ---
Addendum entered by Vikram Dickson RN 08/22/20 04:03: Pt reports chest pain has improved, now experiencing heaviness/pressure. No rhythm change from previous EKG, troponins pending. Original Note: Pt describes achy chest pain radiating across chest. 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 Dr Cho notified, orders received. Pt BP usually on soft side and she had just received Ty Ty for back pain so holding nitro at this time per MD.
[2020-08-22 05:20] LABS: Blood Urea Nitrogen 46 mg/dL (7-17); Calcium 8.4 mg/dL (8.4-10.2); Carbon Dioxide > 40 mmol/L (22-30); Chloride 89 mmol/L (98-107); Estimated CRCL calculation 38 ml/min; Estimated Glomerular Filt Rate 40; Glucose 122 mg/dL (65-105); Potassium 3.2 mmol/L (3.4-5.0); Sodium 139 mmol/L (137-145)
[2020-08-22 05:25] LABS: Troponin I 0.026 ng/mL (0.000-0.034)
[2020-08-22 07:40] LABS: Glucose Point of Care 100 (65-105)
[2020-08-22 08:18] LABS: Magnesium 2.1 mg/dL (1.6-2.3)
[2020-08-22] MEDS: calcitrioL 0.25 MCG CAPSULE PO (08:29)
[2020-08-22] MEDS: POTASSIUM CHLORIDE 20 MEQ TABLET 40 MEQ PO ×2 (08:29→14:32)
[2020-08-22] MEDS: PREGABALIN (*CRX) 50 MG CAPSULE 200 MG PO ×2 (08:29→17:18)
[2020-08-22] MEDS: LOSARTAN POTASSIUM 12.5 MG TABLET PO (08:30)
[2020-08-22] MEDS: amLODIPine BESYLATE 5 MG TABLET PO (08:30)
[2020-08-22] MEDS: predniSONE 20 MG, predniSONE 10 MG 30 MG PO (08:30)
[2020-08-22] MEDS: FENOFIBRATE NANOCRYSTALLIZED 145 MG TABLET PO (08:30)
[2020-08-22] MEDS: ATORVASTATIN 40 MG TABLET 80 MG PO (08:30)
[2020-08-22] MEDS: PANTOPRAZOLE 40 MG TABLET PO ×2 (08:30→20:28)
[2020-08-22] MEDS: hydrALAZINE HCL 25 MG TABLET PO ×2 (08:31→17:15)
[2020-08-22] MEDS: ASPIRIN 81 MG ENTERIC TABLET PO (08:31)
[2020-08-22] MEDS: guaiFENesin 12 HR 600 MG TABCR PO ×2 (08:31→20:28)
[2020-08-22] MEDS: TIZANIDINE HCL 4 MG TABLET PO ×2 (08:31→20:29)
[2020-08-22] MEDS: MAGNESIUM OXIDE 400 MG TABLET PO (08:31)
[2020-08-22] MEDS: ISOSORBIDE MONONITRATE 30 MG TAB.ER.24H PO (08:31)
[2020-08-22] MEDS: FERROUS SULFATE 324 MG TABLET PO ×2 (08:31→17:14)
[2020-08-22] MEDS: ENOXAPARIN 40 MG/0.4 ML SYRINGE SUB-Q (08:31)
[2020-08-22] MEDS: CLOPIDOGREL BISULFATE 75 MG TABLET PO (08:31)
[2020-08-22] MEDS: LIDOCAINE 5% PATCH 1 PATCH TRANSDERM (08:32)
[2020-08-22] MEDS: FUROSEMIDE INJ 40 MG/4 ML VIAL IV PUSH ×2 (08:32→17:14)
[2020-08-22] MEDS: INSULIN GLARGINE (*BKC) 100 UNITS/ML 10 UNITS SUB-Q (08:37)
[2020-08-22] MEDS: ONDANSETRON INJ 4 MG/2 ML VIAL IV PUSH (08:41)
[2020-08-22] MEDS: CALCIUM CARBONATE (TUMS) 500 MG (200 MG ELEMENTAL) PO ×2 (08:41→14:32)
[2020-08-22] MEDS: ACETAMINOPHEN 325 MG TABLET 650 MG PO ×2 (08:41→20:28)
--- NOTE | 2020-08-22 10:59 | PM.PNCARD ---
Progress Note: A&P Assessment and Plan (1) Acute respiratory failure with hypoxia: Code(s): J96.01 - Acute respiratory failure with hypoxia Status: Acute Assessment and Plan: 80 y/o with h/o CAD s/p LAD stent in May 2020, COPD, sleep apnea, diastolic CHF, recent COVID pneumonia, chronic A fib who is seen in cardiac consultation for chest pain and dyspnea Continue to be volume overloaded. Chest Xray reviewed, pulmonary edema appears worse compared to prior exam Continue IV lasix. Agree with Acetazolamide. I will also order one time dose Metolazone Will need more strict in/out, Close monitoring of creatinine. Need to be more aggressive in replacing her K antibiotics and steroids per Primary service. (2) Chest discomfort: Code(s): R07.89 - Other chest pain Status: Acute Assessment and Plan: Chest pain is atypical and in the setting of COPD exacerbation and recent COVID. Also had EGD esophagitis/gastritis and large hiatal hernia Troponin negative and no acute EKG changes Recent ECHO showed normal LV systolic function (LVEF 55-60%) cont ASA and Plavix (3) CAD (coronary artery disease): Qualifiers: Coronary Disease-Associated Artery/Lesion type: [place] artery [place] vs. transplanted heart: [place] heart Associated angina: without angina Qualified Code(s): I25.10 - Atherosclerotic heart disease of [place] coronary artery without angina pectoris Code(s): I25.10 - Atherosclerotic heart disease of [place] coronary artery without angina pectoris Status: Chronic Assessment and Plan: Stable. (4) Afib: Code(s): I48.91 - Unspecified atrial fibrillation Status: Acute Assessment and Plan: HR well controlled (not on any blocking agents) On ASA and Plavix but not on NOAC or Coumadin at home. Currently on Lovenox at prophylactic dose. (5) Type 2 diabetes mellitus: Code(s): E11.9 - Type 2 diabetes mellitus without complications Status: Acute Subjective Date/time seen: 08/22/20 10:59 No overnight events. Feels about the same. Still with lower ext edema. Review of Systems Review of Systems: All systems reviewed & are unremarkable except as noted in HPI and below Constitutional: Constitutional: Denies fatigue and Denies headache(s) Eyes: Eyes: Denies blurry vision ENT: Reports Normal hearing present and Denies headache(s) Cardiovascular: Cardiovascular: Denies chest pain, Denies diaphoresis, Denies pedal edema, Denies leg edema, Denies lightheadedness, Denies palpitations and Denies dyspnea Respiratory: Respiratory: Denies cough and Denies dyspnea Gastrointestinal: Gastrointestinal: Denies abdominal pain Musculoskeletal: Musculoskeletal: Denies back pain Neurologic: Reports Normal hearing present and Denies headache(s) Psychiatric: Psychiatric: Denies anxiety Endocrine: Endocrine: Denies fatigue and Denies palpitations Exam Narrative: Exam Narrative: General: Patient resting supine in bed in no acute distress; HEENT: Normocephalic, EOMI, oral mucosa moist. Cardiovascular: Rate and rhythm are irregularly irregular with moderate rate. No notable murmur, rub, or gallop. Respiratory: Occasional scattered rhonchi. She speaks in long sentences. Non-labored breathing. No respiratory distress. Abdomen: Soft, obese abdomen. Extremities: Peripheral pulses intact. bilateral LE edema, mild improvement. Neuro: No focal neurological deficits. Speech is clear. Neuro: Cranial nerves: Yes Normal hearing present Objective Data Vital Signs Vital Signs: Vital Signs - 24 hr 08/21/20 12:00 08/21/20 14:00 08/21/20 14:10 Temperature 36.0 C L Pulse Rate 88 74 75 Respiratory Rate 16 18 Blood Pressure 118/58 L Pulse Oximetry 95 08/21/20 14:19 08/21/20 16:00 08/21/20 20:00 Temperature Pulse Rate 73 59 L 104 H Respiratory Rate 18 Blood Pressure Pulse Oximetry 95 08/21/20 20:37 08/21/20 21:49
[2020-08-22] MEDS: acetaZOLAMIDE TAB 250 MG TABLET PO (11:02)
[2020-08-22 11:32] LABS: Glucose Point of Care 262 (65-105)
[2020-08-22] MEDS: INSULIN ASPART (*BKC) 100 UNITS/ML SUB-Q ×2 (11:32→17:19)
[2020-08-22] MEDS: metOLazone 2.5 MG TABLET PO (11:35)
--- NOTE | 2020-08-22 13:20 | PM.IMPN ---
Progress Note: A&P Assessment and Plan (1) COPD (chronic obstructive pulmonary disease): Code(s): J44.9 - Chronic obstructive pulmonary disease, unspecified Status: Acute Assessment and Plan: Continue prednisone taper Neb treatments Q6hr Continue home meds Albuterol rescue inhaler PRN IS/Cornet Augmentin course completed on 08/17 Pt is on 3 liters of oxygen her baseline , cxr ordered for reyna am 08/22/20 13:20 Patient is a 80 yo F with history of hypertension, type 2 diabetes mellitus, COPD with chronic respiratory failure on 3 L nasal cannula, congestive heart failure and several other comorbidities who is seen in follow up for COPD exacerbation and acute on chronic respiratory failure with hypoxia and chronic hypercapnia. Pt ankles are still swollen and appears SOB. Cardiology wants to give iv lasix for improve diuresis and UO. Hopeful DC in 1-2 days time. Patient is morbidly obese presented with shortness of breath appears volume overload, patient has a preserved LV function with EF of 55% and grade 2 diastolic dysfunction most likely patient has acute on chronic diastolic congestive heart patient is being diuresed with IV Lasix 40 mg b.i.d., give 1 time acetazolamid 250mg x1, will monitor patient Is and Os, patient is participating in physical therapy however today patient complains right foot bruising denies any trauma or pain with weight-bearing, x-ray of the foot did not show any acute injury, will continue monitor the patient and further recommendation to follow (2) Acute respiratory failure with hypoxia: Code(s): J96.01 - Acute respiratory failure with hypoxia Status: Acute Assessment and Plan: Acute on chronic respiratory failure with hypoxia and chronic hypercapnia; wears 3 L at home normally. COPD exacerbation felt to be most likely. Has a recent history of COVID pneumonia as well. Improving (3) Chronic kidney disease, stage 3: Qualifiers: Chronic kidney disease stage 3 subtype: unspecified whether 3a or 3b Qualified Code(s): N18.30 - Chronic kidney disease, stage 3 unspecified Code(s): N18.30 - Chronic kidney disease, stage 3 unspecified Status: Acute Assessment and Plan: Appears to be at baseline; Cr 1.3 Monitor renal function during stay (4) Insulin dependent type 2 diabetes mellitus: Code(s): E11.9 - Type 2 diabetes mellitus without complications; Z79.4 - keno terminal operator (current) use of insulin Status: Acute Assessment and Plan: Accuchecks ACHS, hypoglycemia protocol, SSI Will continue home 10 u Long acting insulin Monitor accuchecks (5) CAD (coronary artery disease): Qualifiers: Coronary Disease-Associated Artery/Lesion type: [place] artery [place] vs. transplanted heart: [place] heart Associated angina: without angina Qualified Code(s): I25.10 - Atherosclerotic heart disease of [place] coronary artery without angina pectoris Code(s): I25.10 - Atherosclerotic heart disease of [place] coronary artery without angina pectoris Status: Chronic Assessment and Plan: Cardiology rounding no chest pain, chronic and stable. (6) CHF (congestive heart failure): Qualifiers: Heart failure type: diastolic Heart failure chronicity: acute on chronic Qualified Code(s): I50.33 - Acute on chronic diastolic (congestive) heart failure Code(s): I50.9 - Heart failure, unspecified Status: Acute Assessment and Plan: Patient has LE swelling. Cardiology prefers IV lasix to improve diuresis and UO. Cxr ordered for reyna AM (7) Gastroesophageal reflux disease: Code(s): K21.9 - Gastro-esophageal reflux disease without esophagitis Status: Inactive Assessment and Plan: Continue increased PPI at Q12hr SP EGD on admission
[2020-08-22 17:19] LABS: Glucose Point of Care 290 (65-105)
[2020-08-22 20:19] LABS: Glucose Point of Care 248 (65-105)
[2020-08-23] VITALS (21 sets, daily range): BP systolic 117–126; BP diastolic 54–59; PULSE 56–96; RESP 18–22; TEMP 36.5–36.8; O2SAT 92–100
[2020-08-23] MEDS: LEVALBUTEROL NEB 1.25 MG/3 ML 0.63 MG INHALATION ×4 (01:52→21:02)
[2020-08-23] MEDS: IPRATROPIUM BR 0.02% INH SOLN 0.5 MG/2.5 ML VIAL INHALATION ×4 (01:52→21:02)
--- NOTE | 2020-08-23 04:45 | PC.NURSE ---
Called into room pt off c pap and oiz027%. Oxygen was at 4 L and now up to 5L/min., spoke with respiratory and pt is slow to recover when taken off c pap. Pt's spo2 now 92%.
[2020-08-23] MEDS: ACETAMINOPHEN 325 MG TABLET 650 MG PO ×3 (04:59→21:24)
[2020-08-23 07:45] LABS: Glucose Point of Care 103 (65-105)
[2020-08-23] MEDS: hydrALAZINE HCL 25 MG TABLET PO ×2 (08:03→16:35)
[2020-08-23] MEDS: LIDOCAINE 5% PATCH 1 PATCH TRANSDERM (08:03)
[2020-08-23] MEDS: FERROUS SULFATE 324 MG TABLET PO ×2 (08:04→16:36)
[2020-08-23] MEDS: ISOSORBIDE MONONITRATE 30 MG TAB.ER.24H PO (08:04)
[2020-08-23] MEDS: calcitrioL 0.25 MCG CAPSULE PO (08:04)
[2020-08-23] MEDS: ASPIRIN 81 MG ENTERIC TABLET PO (08:04)
[2020-08-23] MEDS: ATORVASTATIN 40 MG TABLET 80 MG PO (08:04)
[2020-08-23] MEDS: MAGNESIUM OXIDE 400 MG TABLET PO (08:04)
[2020-08-23] MEDS: predniSONE 20 MG TABLET PO (08:04)
[2020-08-23] MEDS: TIZANIDINE HCL 4 MG TABLET PO ×2 (08:04→21:25)
[2020-08-23] MEDS: FENOFIBRATE NANOCRYSTALLIZED 145 MG TABLET PO (08:05)
[2020-08-23] MEDS: ENOXAPARIN 40 MG/0.4 ML SYRINGE SUB-Q (08:05)
[2020-08-23] MEDS: LOSARTAN POTASSIUM 12.5 MG TABLET PO (08:05)
[2020-08-23] MEDS: PANTOPRAZOLE 40 MG TABLET PO ×2 (08:05→20:45)
[2020-08-23] MEDS: CLOPIDOGREL BISULFATE 75 MG TABLET PO (08:05)
[2020-08-23] MEDS: guaiFENesin 12 HR 600 MG TABCR PO ×2 (08:05→20:45)
[2020-08-23] MEDS: amLODIPine BESYLATE 5 MG TABLET PO (08:05)
[2020-08-23] MEDS: FUROSEMIDE INJ 40 MG/4 ML VIAL IV PUSH ×2 (08:06→16:35)
[2020-08-23] MEDS: EUCERIN CREAM 120 GM JAR 1 APPLIC TOPICAL (08:15)
[2020-08-23] MEDS: INSULIN GLARGINE (*BKC) 100 UNITS/ML 10 UNITS SUB-Q (08:15)
[2020-08-23] MEDS: PREGABALIN (*CRX) 50 MG CAPSULE 200 MG PO ×2 (09:41→16:36)
[2020-08-23 10:21] LABS: Blood Urea Nitrogen 39 mg/dL (7-17); Calcium 8.9 mg/dL (8.4-10.2); Carbon Dioxide > 40 mmol/L (22-30); Chloride 88 mmol/L (98-107); Estimated CRCL calculation 31 ml/min; Estimated Glomerular Filt Rate 31; Glucose 256 mg/dL (65-105); Potassium 3.2 mmol/L (3.4-5.0); Sodium 134 mmol/L (137-145)
[2020-08-23] MEDS: POTASSIUM CHLORIDE 20 MEQ TABLET 40 MEQ PO ×2 (11:32→14:28)
[2020-08-23] MEDS: acetaZOLAMIDE TAB 250 MG TABLET PO (11:33)
[2020-08-23 11:56] LABS: Glucose Point of Care 254 (65-105)
[2020-08-23] MEDS: INSULIN ASPART (*BKC) 100 UNITS/ML SUB-Q (11:58)
--- NOTE | 2020-08-23 13:09 | PM.IMPN ---
Progress Note: A&P Assessment and Plan (1) COPD (chronic obstructive pulmonary disease): Code(s): J44.9 - Chronic obstructive pulmonary disease, unspecified Status: Acute Assessment and Plan: Continue prednisone taper Neb treatments Q6hr Continue home meds Albuterol rescue inhaler PRN IS/Cornet Augmentin course completed on 08/17 Pt is on 3 liters of oxygen her baseline , cxr ordered for reyna am 08/23/20 13:09 Patient is a 80 yo F with history of hypertension, type 2 diabetes mellitus, COPD with chronic respiratory failure on 3 L nasal cannula, congestive heart failure and several other comorbidities who is seen in follow up for COPD exacerbation and acute on chronic respiratory failure with hypoxia and chronic hypercapnia. Pt ankles are still swollen and appears SOB. Cardiology wants to give iv lasix for improve diuresis and UO. Hopeful DC in 1-2 days time. Patient is morbidly obese presented with shortness of breath appears volume overload, patient has a preserved LV function with EF of 55% and grade 2 diastolic dysfunction most likely patient has acute on chronic diastolic congestive heart failure, patient is being diuresed with IV Lasix 40 mg b.i.d., give 1 time acetazolamid 250mg x1, however she still aprears volume overloaded, will place on fluids restriction, will monitor patient Is and Os, patient is participating in physical therapy, will continue monitor the patient and further recommendation to follow__ (2) Acute respiratory failure with hypoxia: Code(s): J96.01 - Acute respiratory failure with hypoxia Status: Acute Assessment and Plan: Acute on chronic respiratory failure with hypoxia and chronic hypercapnia; wears 3 L at home normally. COPD exacerbation felt to be most likely. Has a recent history of COVID pneumonia as well. Improving (3) Chronic kidney disease, stage 3: Qualifiers: Chronic kidney disease stage 3 subtype: unspecified whether 3a or 3b Qualified Code(s): N18.30 - Chronic kidney disease, stage 3 unspecified Code(s): N18.30 - Chronic kidney disease, stage 3 unspecified Status: Acute Assessment and Plan: Appears to be at baseline; Cr 1.3 Monitor renal function during stay (4) Insulin dependent type 2 diabetes mellitus: Code(s): E11.9 - Type 2 diabetes mellitus without complications; Z79.4 - cribbing setter (current) use of insulin Status: Acute Assessment and Plan: Accuchecks ACHS, hypoglycemia protocol, SSI Will continue home 10 u Long acting insulin Monitor accuchecks (5) CAD (coronary artery disease): Qualifiers: Coronary Disease-Associated Artery/Lesion type: [place] artery [place] vs. transplanted heart: [place] heart Associated angina: without angina Qualified Code(s): I25.10 - Atherosclerotic heart disease of [place] coronary artery without angina pectoris Code(s): I25.10 - Atherosclerotic heart disease of [place] coronary artery without angina pectoris Status: Chronic Assessment and Plan: Cardiology rounding no chest pain, chronic and stable. (6) CHF (congestive heart failure): Qualifiers: Heart failure type: diastolic Heart failure chronicity: acute on chronic Qualified Code(s): I50.33 - Acute on chronic diastolic (congestive) heart failure Code(s): I50.9 - Heart failure, unspecified Status: Acute Assessment and Plan: Patient has LE swelling. Cardiology prefers IV lasix to improve diuresis and UO. Cxr ordered for reyna AM (7) Gastroesophageal reflux disease: Code(s): K21.9 - Gastro-esophageal reflux disease without esophagitis Status: Inactive Assessment and Plan: Continue increased PPI at Q12hr SP EGD on admission showing gastritis and hiatal hernia (8) Acute on chronic diastolic (congestive) heart fail
[2020-08-23 16:25] LABS: Glucose Point of Care 172 (65-105)
[2020-08-23 23:15] LABS: Glucose Point of Care 267 (65-105)
[2020-08-24] VITALS (19 sets, daily range): BP systolic 114–119; BP diastolic 40–72; PULSE 54–93; RESP 16–22; TEMP 36.1–36.4; O2SAT 95–100
[2020-08-24 01:23] LABS: Glucose Point of Care 157 (65-105)
[2020-08-24] MEDS: LEVALBUTEROL NEB 1.25 MG/3 ML 0.63 MG INHALATION ×4 (03:27→21:34)
[2020-08-24] MEDS: IPRATROPIUM BR 0.02% INH SOLN 0.5 MG/2.5 ML VIAL INHALATION ×4 (03:27→21:35)
[2020-08-24 06:01] LABS: Blood Urea Nitrogen 47 mg/dL (7-17); Calcium 9.1 mg/dL (8.4-10.2); Carbon Dioxide > 40 mmol/L (22-30); Chloride 95 mmol/L (98-107); Estimated CRCL calculation 31 ml/min; Estimated Glomerular Filt Rate 31; Glucose 98 mg/dL (65-105); Potassium 3.5 mmol/L (3.4-5.0); Sodium 141 mmol/L (137-145)
[2020-08-24 07:39] LABS: Glucose Point of Care 94 (65-105)
[2020-08-24] MEDS: ENOXAPARIN 40 MG/0.4 ML SYRINGE SUB-Q (08:26)
[2020-08-24] MEDS: LIDOCAINE 5% PATCH 1 PATCH TRANSDERM (08:26)
[2020-08-24] MEDS: LOSARTAN POTASSIUM 12.5 MG TABLET PO (08:26)
[2020-08-24] MEDS: hydrALAZINE HCL 25 MG TABLET PO ×2 (08:27→16:53)
[2020-08-24] MEDS: MAGNESIUM OXIDE 400 MG TABLET PO (08:27)
[2020-08-24] MEDS: FUROSEMIDE INJ 40 MG/4 ML VIAL IV PUSH ×2 (08:27→16:53)
[2020-08-24] MEDS: ATORVASTATIN 40 MG TABLET 80 MG PO (08:27)
[2020-08-24] MEDS: guaiFENesin 12 HR 600 MG TABCR PO ×2 (08:27→21:30)
[2020-08-24] MEDS: TIZANIDINE HCL 4 MG TABLET PO (08:27)
[2020-08-24] MEDS: ASPIRIN 81 MG ENTERIC TABLET PO (08:27)
[2020-08-24] MEDS: PANTOPRAZOLE 40 MG TABLET PO ×2 (08:28→21:30)
[2020-08-24] MEDS: FENOFIBRATE NANOCRYSTALLIZED 145 MG TABLET PO (08:28)
[2020-08-24] MEDS: predniSONE 20 MG TABLET PO (08:28)
[2020-08-24] MEDS: FERROUS SULFATE 324 MG TABLET PO ×2 (08:28→16:53)
[2020-08-24] MEDS: CLOPIDOGREL BISULFATE 75 MG TABLET PO (08:28)
[2020-08-24] MEDS: amLODIPine BESYLATE 5 MG TABLET PO (08:28)
[2020-08-24] MEDS: calcitrioL 0.25 MCG CAPSULE PO (08:28)
[2020-08-24] MEDS: ISOSORBIDE MONONITRATE 30 MG TAB.ER.24H PO (08:28)
[2020-08-24] MEDS: EUCERIN CREAM 120 GM JAR 1 APPLIC TOPICAL (08:29)
[2020-08-24] MEDS: PREGABALIN (*CRX) 50 MG CAPSULE 200 MG PO ×2 (08:32→16:52)
[2020-08-24] MEDS: ACETAMINOPHEN 325 MG TABLET 650 MG PO ×2 (08:33→18:39)
[2020-08-24] MEDS: POTASSIUM CHLORIDE 20 MEQ TABLET 40 MEQ PO ×2 (08:34→14:48)
[2020-08-24] MEDS: INSULIN GLARGINE (*BKC) 100 UNITS/ML 10 UNITS SUB-Q (08:40)
[2020-08-24] MEDS: acetaZOLAMIDE TAB 250 MG TABLET PO (10:06)
--- NOTE | 2020-08-24 10:24 | PCDIET ---
Weekly nutritional screen. Patient is tolerating current diet with adequate intake of 100%. BMI 41.0. No weight loss reported. Patient may benefit from addition of carbohydrate controlled diet; otherwise, no nutritional needs at this time.
[2020-08-24 11:27] LABS: Glucose Point of Care 265 (65-105)
[2020-08-24] MEDS: INSULIN ASPART (*BKC) 100 UNITS/ML SUB-Q ×2 (12:08→16:53)
--- NOTE | 2020-08-24 12:40 | PM.IMPN ---
Progress Note: A&P Assessment and Plan (1) COPD (chronic obstructive pulmonary disease): Code(s): J44.9 - Chronic obstructive pulmonary disease, unspecified Status: Acute Assessment and Plan: Continue prednisone taper Neb treatments Q6hr Continue home meds Albuterol rescue inhaler PRN IS/Cornet Augmentin course completed on 08/17 Pt is on 3 liters of oxygen her baseline , cxr ordered for reyna am 08/24/20 12:40 Patient is a 80 yo F with history of hypertension, type 2 diabetes mellitus, COPD with chronic respiratory failure on 3 L nasal cannula, congestive heart failure and several other comorbidities who is seen in follow up for COPD exacerbation and acute on chronic respiratory failure with hypoxia and chronic hypercapnia. Pt ankles are still swollen and appears SOB. Cardiology wants to give iv lasix for improve diuresis and UO. Hopeful DC in 1-2 days time. Patient is morbidly obese presented with shortness of breath appears volume overload, patient has a preserved LV function with EF of 55% and grade 2 diastolic dysfunction most likely patient has acute on chronic diastolic congestive heart failure, patient is being diuresed with IV Lasix 40 mg b.i.d., giving acetazolamid 250mg PO for 3 days, however she still aprears volume overloaded, will place on fluids restriction, will monitor patient Is and Os, patient is participating in physical therapy, will continue monitor the patient and further recommendation to follow__ (2) Acute respiratory failure with hypoxia: Code(s): J96.01 - Acute respiratory failure with hypoxia Status: Acute Assessment and Plan: Acute on chronic respiratory failure with hypoxia and chronic hypercapnia; wears 3 L at home normally. COPD exacerbation felt to be most likely. Has a recent history of COVID pneumonia as well. Improving (3) Chronic kidney disease, stage 3: Qualifiers: Chronic kidney disease stage 3 subtype: unspecified whether 3a or 3b Qualified Code(s): N18.30 - Chronic kidney disease, stage 3 unspecified Code(s): N18.30 - Chronic kidney disease, stage 3 unspecified Status: Acute Assessment and Plan: Appears to be at baseline; Cr 1.3 Monitor renal function during stay (4) Insulin dependent type 2 diabetes mellitus: Code(s): E11.9 - Type 2 diabetes mellitus without complications; Z79.4 - remote computer terminal operator (current) use of insulin Status: Acute Assessment and Plan: Accuchecks ACHS, hypoglycemia protocol, SSI Will continue home 10 u Long acting insulin Monitor accuchecks (5) CAD (coronary artery disease): Qualifiers: Coronary Disease-Associated Artery/Lesion type: [place] artery [place] vs. transplanted heart: [place] heart Associated angina: without angina Qualified Code(s): I25.10 - Atherosclerotic heart disease of [place] coronary artery without angina pectoris Code(s): I25.10 - Atherosclerotic heart disease of [place] coronary artery without angina pectoris Status: Chronic Assessment and Plan: Cardiology rounding no chest pain, chronic and stable. (6) CHF (congestive heart failure): Qualifiers: Heart failure type: diastolic Heart failure chronicity: acute on chronic Qualified Code(s): I50.33 - Acute on chronic diastolic (congestive) heart failure Code(s): I50.9 - Heart failure, unspecified Status: Acute Assessment and Plan: Patient has LE swelling. Cardiology prefers IV lasix to improve diuresis and UO. Cxr ordered for reyna AM (7) Gastroesophageal reflux disease: Code(s): K21.9 - Gastro-esophageal reflux disease without esophagitis Status: Inactive Assessment and Plan: Continue increased PPI at Q12hr SP EGD on admission showing gastritis and hiatal hernia (8) Acute on chronic diastolic (congestive) hear
[2020-08-24 16:44] LABS: Glucose Point of Care 228 (65-105)
[2020-08-24 22:22] LABS: Glucose Point of Care 239 (65-105)
[2020-08-25] VITALS (16 sets, daily range): BP systolic 100–131; BP diastolic 52–83; PULSE 54–97; RESP 16–18; TEMP 36.1–36.7; O2SAT 96–99
[2020-08-25] MEDS: ACETAMINOPHEN 325 MG TABLET 650 MG PO ×3 (02:50→17:29)
[2020-08-25] MEDS: TIZANIDINE HCL 4 MG TABLET PO ×2 (02:51→12:01)
[2020-08-25] MEDS: LEVALBUTEROL NEB 1.25 MG/3 ML 0.63 MG INHALATION ×3 (03:32→20:13)
[2020-08-25] MEDS: IPRATROPIUM BR 0.02% INH SOLN 0.5 MG/2.5 ML VIAL INHALATION ×3 (03:32→20:13)
[2020-08-25 06:30] LABS: Blood Urea Nitrogen 44 mg/dL (7-17); Calcium 9.2 mg/dL (8.4-10.2); Carbon Dioxide > 40 mmol/L (22-30); Chloride 96 mmol/L (98-107); Estimated CRCL calculation 28 ml/min; Estimated Glomerular Filt Rate 27; Glucose 120 mg/dL (65-105); Potassium 3.5 mmol/L (3.4-5.0); Sodium 142 mmol/L (137-145)
[2020-08-25 08:03] LABS: Glucose Point of Care 117 (65-105)
[2020-08-25] MEDS: POTASSIUM CHLORIDE 20 MEQ TABLET 40 MEQ PO ×2 (08:53→16:03)
[2020-08-25] MEDS: ATORVASTATIN 40 MG TABLET 80 MG PO (08:53)
[2020-08-25] MEDS: ISOSORBIDE MONONITRATE 30 MG TAB.ER.24H PO (08:54)
[2020-08-25] MEDS: calcitrioL 0.25 MCG CAPSULE PO (08:54)
[2020-08-25] MEDS: MAGNESIUM OXIDE 400 MG TABLET PO (08:55)
[2020-08-25] MEDS: ASPIRIN 81 MG ENTERIC TABLET PO (08:55)
[2020-08-25] MEDS: PANTOPRAZOLE 40 MG TABLET PO ×2 (08:55→20:58)
[2020-08-25] MEDS: LOSARTAN POTASSIUM 12.5 MG TABLET PO (08:55)
[2020-08-25] MEDS: guaiFENesin 12 HR 600 MG TABCR PO ×2 (08:55→20:58)
[2020-08-25] MEDS: PREGABALIN (*CRX) 50 MG CAPSULE 200 MG PO ×2 (08:55→16:05)
[2020-08-25] MEDS: FENOFIBRATE NANOCRYSTALLIZED 145 MG TABLET PO (08:55)
[2020-08-25] MEDS: predniSONE 20 MG TABLET PO (08:56)
[2020-08-25] MEDS: amLODIPine BESYLATE 5 MG TABLET PO (08:56)
[2020-08-25] MEDS: ENOXAPARIN 40 MG/0.4 ML SYRINGE SUB-Q (08:56)
[2020-08-25] MEDS: FERROUS SULFATE 324 MG TABLET PO ×2 (08:56→16:04)
[2020-08-25] MEDS: CLOPIDOGREL BISULFATE 75 MG TABLET PO (08:56)
[2020-08-25] MEDS: hydrALAZINE HCL 25 MG TABLET PO ×2 (08:56→16:05)
[2020-08-25] MEDS: FUROSEMIDE INJ 40 MG/4 ML VIAL IV PUSH ×2 (08:56→16:04)
[2020-08-25] MEDS: EUCERIN CREAM 120 GM JAR 1 APPLIC TOPICAL (08:57)
[2020-08-25] MEDS: LIDOCAINE 5% PATCH 1 PATCH TRANSDERM (08:57)
[2020-08-25] MEDS: INSULIN GLARGINE (*BKC) 100 UNITS/ML 10 UNITS SUB-Q (08:57)
--- NOTE | 2020-08-25 11:53 | PCRCNOTE ---
Window of time for administration has passed. See next scheduled administration.
[2020-08-25 12:00] LABS: Glucose Point of Care 231 (65-105)
[2020-08-25] MEDS: INSULIN ASPART (*BKC) 100 UNITS/ML SUB-Q ×2 (12:02→16:48)
[2020-08-25] MEDS: CALCIUM CARBONATE (TUMS) 500 MG (200 MG ELEMENTAL) PO (12:06)
--- NOTE | 2020-08-25 14:35 | PM.IMPN ---
Progress Note: A&P Assessment and Plan (1) COPD (chronic obstructive pulmonary disease): Code(s): J44.9 - Chronic obstructive pulmonary disease, unspecified Status: Acute Assessment and Plan: Continue prednisone taper Neb treatments Q6hr Continue home meds Albuterol rescue inhaler PRN IS/Cornet Augmentin course completed on 08/17 Pt is on 3 liters of oxygen her baseline , cxr ordered for reyna am 08/25/20 14:35 Patient is a 80 yo F with history of hypertension, type 2 diabetes mellitus, COPD with chronic respiratory failure on 3 L nasal cannula, congestive heart failure and several other comorbidities who is seen in follow up for COPD exacerbation and acute on chronic respiratory failure with hypoxia and chronic hypercapnia. Pt ankles are still swollen and appears SOB. Cardiology wants to give iv lasix for improve diuresis and UO. Hopeful DC in 1-2 days time. Patient is morbidly obese presented with shortness of breath appears volume overload, patient has a preserved LV function with EF of 55% and grade 2 diastolic dysfunction most likely patient has acute on chronic diastolic congestive heart failure, patient is being diuresed with IV Lasix 40 mg b.i.d., gave acetazolamid 250mg PO for 3 days, patient diuresed well, will continue fluids restriction, will monitor patient Is and Os, patient is participating in physical therapy, will continue monitor the patient, remains clinically stable will discharge home tomorrow. (2) Acute respiratory failure with hypoxia: Code(s): J96.01 - Acute respiratory failure with hypoxia Status: Acute Assessment and Plan: Acute on chronic respiratory failure with hypoxia and chronic hypercapnia; wears 3 L at home normally. COPD exacerbation felt to be most likely. Has a recent history of COVID pneumonia as well. Improving (3) Chronic kidney disease, stage 3: Qualifiers: Chronic kidney disease stage 3 subtype: unspecified whether 3a or 3b Qualified Code(s): N18.30 - Chronic kidney disease, stage 3 unspecified Code(s): N18.30 - Chronic kidney disease, stage 3 unspecified Status: Acute Assessment and Plan: Appears to be at baseline; Cr 1.3 Monitor renal function during stay (4) Insulin dependent type 2 diabetes mellitus: Code(s): E11.9 - Type 2 diabetes mellitus without complications; Z79.4 - salvage determiner (current) use of insulin Status: Acute Assessment and Plan: Accuchecks ACHS, hypoglycemia protocol, SSI Will continue home 10 u Long acting insulin Monitor accuchecks (5) CAD (coronary artery disease): Qualifiers: Coronary Disease-Associated Artery/Lesion type: [place] artery [place] vs. transplanted heart: [place] heart Associated angina: without angina Qualified Code(s): I25.10 - Atherosclerotic heart disease of [place] coronary artery without angina pectoris Code(s): I25.10 - Atherosclerotic heart disease of [place] coronary artery without angina pectoris Status: Chronic Assessment and Plan: Cardiology rounding no chest pain, chronic and stable. (6) CHF (congestive heart failure): Qualifiers: Heart failure type: diastolic Heart failure chronicity: acute on chronic Qualified Code(s): I50.33 - Acute on chronic diastolic (congestive) heart failure Code(s): I50.9 - Heart failure, unspecified Status: Acute Assessment and Plan: Patient has LE swelling. Cardiology prefers IV lasix to improve diuresis and UO. Cxr ordered for reyna AM (7) Gastroesophageal reflux disease: Code(s): K21.9 - Gastro-esophageal reflux disease without esophagitis Status: Inactive Assessment and Plan: Continue increased PPI at Q12hr SP EGD on admission showing gastritis and hiatal hernia (8) Acute on chronic diastolic (congestive) heart f
[2020-08-25 16:43] LABS: Glucose Point of Care 203 (65-105)
[2020-08-25 21:07] LABS: Glucose Point of Care 267 (65-105)
[2020-08-26] VITALS (13 sets, daily range): BP systolic 107–114; BP diastolic 52–56; PULSE 51–97; RESP 18–20; TEMP 36.2; O2SAT 95–100
[2020-08-26] MEDS: TIZANIDINE HCL 4 MG TABLET PO ×2 (00:18→15:52)
[2020-08-26] MEDS: ACETAMINOPHEN 325 MG TABLET 650 MG PO ×3 (00:20→13:41)
[2020-08-26] MEDS: IPRATROPIUM BR 0.02% INH SOLN 0.5 MG/2.5 ML VIAL INHALATION ×3 (02:29→14:34)
[2020-08-26] MEDS: LEVALBUTEROL NEB 1.25 MG/3 ML 0.63 MG INHALATION ×3 (02:29→14:34)
[2020-08-26 06:12] LABS: Blood Urea Nitrogen 46 mg/dL (7-17); Calcium 9.6 mg/dL (8.4-10.2); Carbon Dioxide > 40 mmol/L (22-30); Chloride 97 mmol/L (98-107); Estimated CRCL calculation 28 ml/min; Estimated Glomerular Filt Rate 27; Glucose 128 mg/dL (65-105); Potassium 3.6 mmol/L (3.4-5.0); Sodium 144 mmol/L (137-145)
[2020-08-26] MEDS: predniSONE 10 MG TABLET PO (09:32)
[2020-08-26] MEDS: ISOSORBIDE MONONITRATE 30 MG TAB.ER.24H PO (09:32)
[2020-08-26] MEDS: LOSARTAN POTASSIUM 12.5 MG TABLET PO (09:32)
[2020-08-26] MEDS: FUROSEMIDE INJ 40 MG/4 ML VIAL IV PUSH (09:32)
[2020-08-26] MEDS: ASPIRIN 81 MG ENTERIC TABLET PO (09:32)
[2020-08-26] MEDS: guaiFENesin 12 HR 600 MG TABCR PO (09:32)
[2020-08-26] MEDS: CLOPIDOGREL BISULFATE 75 MG TABLET PO (09:32)
[2020-08-26] MEDS: PANTOPRAZOLE 40 MG TABLET PO (09:33)
[2020-08-26] MEDS: MAGNESIUM OXIDE 400 MG TABLET PO (09:33)
[2020-08-26] MEDS: hydrALAZINE HCL 25 MG TABLET PO (09:33)
[2020-08-26] MEDS: FENOFIBRATE NANOCRYSTALLIZED 145 MG TABLET PO (09:33)
[2020-08-26] MEDS: FERROUS SULFATE 324 MG TABLET PO (09:33)
[2020-08-26] MEDS: amLODIPine BESYLATE 5 MG TABLET PO (09:33)
[2020-08-26] MEDS: calcitrioL 0.25 MCG CAPSULE PO (09:33)
[2020-08-26] MEDS: LIDOCAINE 5% PATCH 1 PATCH TRANSDERM (09:34)
[2020-08-26] MEDS: ENOXAPARIN 40 MG/0.4 ML SYRINGE SUB-Q (09:34)
[2020-08-26] MEDS: ATORVASTATIN 40 MG TABLET 80 MG PO (09:34)
[2020-08-26] MEDS: EUCERIN CREAM 120 GM JAR 1 APPLIC TOPICAL (09:35)
[2020-08-26] MEDS: INSULIN GLARGINE (*BKC) 100 UNITS/ML 10 UNITS SUB-Q (09:37)
[2020-08-26] MEDS: PREGABALIN (*CRX) 50 MG CAPSULE 200 MG PO (09:37)
--- NOTE | 2020-08-26 09:56 | PM.PNCARD ---
Progress Note: A&P Assessment and Plan (1) Acute respiratory failure with hypoxia: Code(s): J96.01 - Acute respiratory failure with hypoxia Status: Acute Assessment and Plan: 80 y/o with h/o CAD s/p LAD stent in May 2020, COPD, sleep apnea, diastolic CHF, recent COVID pneumonia, chronic A fib who is seen in cardiac consultation for chest pain and dyspnea She has been diuresed for volume overload. Chest Xray planned for today is pending. Continue IV Lasix with careful monitoring of renal function and electrolytes. Will need more strict in/out, Close monitoring of creatinine as it remains elevated at 1.8. If she is discharged by the hospitalist service, she would need a follow-up BMP in 3-5 days to follow her creatinine and potassium. She would also need follow-up in the Cardiology Clinic by video phone visit in 1 week. antibiotics and steroids per Primary service. (2) Chest discomfort: Code(s): R07.89 - Other chest pain Status: Acute Assessment and Plan: Chest pain is atypical and in the setting of COPD exacerbation and recent COVID. Also had EGD esophagitis/gastritis and large hiatal hernia Troponin negative and no acute EKG changes Recent ECHO showed normal LV systolic function (LVEF 55-60%) cont ASA and Plavix (3) CAD (coronary artery disease): Qualifiers: Associated angina: without angina Coronary Disease-Associated Artery/Lesion type: [place] artery [place] vs. transplanted heart: [place] heart Qualified Code(s): I25.10 - Atherosclerotic heart disease of [place] coronary artery without angina pectoris Code(s): I25.10 - Atherosclerotic heart disease of [place] coronary artery without angina pectoris Status: Chronic Assessment and Plan: Stable. (4) Afib: Code(s): I48.91 - Unspecified atrial fibrillation Status: Acute Assessment and Plan: HR well controlled (not on any blocking agents) On ASA and Plavix but not on NOAC or Coumadin at home. Currently on Lovenox at prophylactic dose. (5) Type 2 diabetes mellitus: Code(s): E11.9 - Type 2 diabetes mellitus without complications Status: Acute Subjective Date/time seen: 08/26/20 09:56 Patient denies chest pain with the exception of intermittent sharp central chest discomfort similar to her prior discomfort. She reports improved occasional dyspnea. She reports occasional postural dizziness. She reports occasional diffuse lower abdominal discomfort. Patient was seen and examined, chart reviewed, case discussed with nurse. Exam Narrative: Exam Narrative: General: Patient resting supine in bed in no acute distress; HEENT: Normocephalic, EOMI, oral mucosa moist. Cardiovascular: Rate and rhythm are irregularly irregular with moderate rate. No notable murmur, rub, or gallop. Respiratory: Occasional scattered rhonchi. She speaks in long sentences. Non-labored breathing. No respiratory distress. Abdomen: Soft, obese abdomen. Extremities: Peripheral pulses intact. bilateral LE edema improving, mild improvement. Neuro: No focal neurological deficits. Speech is clear. Neuro: Cranial nerves: Yes Normal hearing present Objective Data Vital Signs Vital Signs: Vital Signs - 24 hr 08/25/20 12:00 08/25/20 14:00 08/25/20 14:45 Temperature 36.4 C L Pulse Rate 97 66 68 Respiratory Rate 16 18 Blood Pressure 109/52 L Pulse Oximetry 96 98 08/25/20 14:56 08/25/20 16:00 08/25/20 19:57 Temperature Pulse Rate 76 71 Respiratory Rate 18 Blood Pressure Pulse Oximetry 96 08/25/20 20:00 08/25/20 20:14 08/25/20 20:18 Temperature Pulse Rate 75 85 85 Respiratory Rate 18 Blood Pressure Pulse Oximetry 96 08/25/20 20:29 08/25/20 21:24 08/26/20 00:00 Temperature 36.7 C Pulse Rate 81 70 77 Respiratory Rate 18 18 Blood Pressure 131/83 Pulse Oximetry 97 08/26/20 02:29 08/26/20 02:36 08/26/20 04:00 Temperature Pulse Rate 57
[2020-08-26] MEDS: INSULIN ASPART (*BKC) 100 UNITS/ML SUB-Q (11:54)
[2020-08-26 11:57] LABS: Glucose Point of Care 213 (65-105)
--- NOTE | 2020-08-26 12:40 | PM.DS ---
DS: Admitting Diagnosis Admitting Diagnosis Admitting Diagnosis: Acute respiratory failure with hypoxia, DS: Discharge Diagnosis Discharge Diagnosis (1) Acute on chronic diastolic (congestive) heart failure: Code(s): I50.33 - Acute on chronic diastolic (congestive) heart failure Status: Resolved Assessment and Plan: Plan is above (2) Morbid obesity with BMI of 40.0-44.9, adult: Code(s): E66.01 - Morbid (severe) obesity due to excess calories; Z68.41 - Body mass index [BMI]40.0-44.9, adult Status: Acute (3) COPD (chronic obstructive pulmonary disease): Code(s): J44.9 - Chronic obstructive pulmonary disease, unspecified Status: Deleted Assessment and Plan: Continue prednisone taper Neb treatments Q6hr Continue home meds Albuterol rescue inhaler PRN IS/Cornet Augmentin course completed on 08/17 Pt is on 3 liters of oxygen her baseline , cxr ordered for reyna am 08/25/20 14:35 Patient is a 80 yo F with history of hypertension, type 2 diabetes mellitus, COPD with chronic respiratory failure on 3 L nasal cannula, congestive heart failure and several other comorbidities who is seen in follow up for COPD exacerbation and acute on chronic respiratory failure with hypoxia and chronic hypercapnia. Pt ankles are still swollen and appears SOB. Cardiology wants to give iv lasix for improve diuresis and UO. Hopeful DC in 1-2 days time. Patient is morbidly obese presented with shortness of breath appears volume overload, patient has a preserved LV function with EF of 55% and grade 2 diastolic dysfunction most likely patient has acute on chronic diastolic congestive heart failure, patient is being diuresed with IV Lasix 40 mg b.i.d., gave acetazolamid 250mg PO for 3 days, patient diuresed well, will continue fluids restriction, will monitor patient Is and Os, patient is participating in physical therapy, will continue monitor the patient, remains clinically stable will discharge home tomorrow. (4) Acute respiratory failure with hypoxia: Code(s): J96.01 - Acute respiratory failure with hypoxia Status: Resolved Assessment and Plan: Acute on chronic respiratory failure with hypoxia and chronic hypercapnia; wears 3 L at home normally. COPD exacerbation felt to be most likely. Has a recent history of COVID pneumonia as well. Improving (5) Chronic kidney disease, stage 3: Qualifiers: Chronic kidney disease stage 3 subtype: unspecified whether 3a or 3b Qualified Code(s): N18.30 - Chronic kidney disease, stage 3 unspecified Code(s): N18.30 - Chronic kidney disease, stage 3 unspecified Status: Acute Assessment and Plan: Appears to be at baseline; Cr 1.3 Monitor renal function during stay (6) Insulin dependent type 2 diabetes mellitus: Code(s): E11.9 - Type 2 diabetes mellitus without complications; Z79.4 - supervisor intermediates (current) use of insulin Status: Acute Assessment and Plan: Accuchecks ACHS, hypoglycemia protocol, SSI Will continue home 10 u Long acting insulin Monitor accuchecks (7) CAD (coronary artery disease): Qualifiers: Coronary Disease-Associated Artery/Lesion type: [place] artery [place] vs. transplanted heart: [place] heart Associated angina: without angina Qualified Code(s): I25.10 - Atherosclerotic heart disease of [place] coronary artery without angina pectoris Code(s): I25.10 - Atherosclerotic heart disease of [place] coronary artery without angina pectoris Status: Deleted Assessment and Plan: Cardiology rounding no chest pain, chronic and stable. (8) CHF (congestive heart failure): Qualifiers: Heart failure type: diastolic Heart failure chronicity: acute on chronic Qualified Code(s): I50.33 - Acute on chronic diastolic (congestive) heart failure Code(s): I50.9 - Heart failure, unsp
--- NOTE | 2020-08-26 15:58 | PC.NURSE ---
pt states her daughter is at work and will be bringing her some clothes and will be taking her home this evening
[2020-08-26 17:10] LABS: SARS-CoV-2 RNA PCR Negative
== END 2020-08-26 17:10 | disposition home health service (06) | DRG 291 ==
LOC: ANHED 08-13 01:51 → ANH2MED 08-13 02:05
PROVIDERS: Emergency Medicine; Family Medicine; Internal Medicine Cardiovascular Disease; Internal Medicine Gastroenterology; Physician Assistant; Admitting Provider Student in an Organized Health Care Education/Training Program; Emergency Provider Emergency Medicine; PCP Internal Medicine; Visit Provider Family Medicine
PROC: 0DJ08ZZ Inspection of Upper Intestinal Tract, Via Natural or Artificial Opening Endoscopic (ICD-10-PCS; CPT 43235; principal; 2020-08-19 12:00)
DX: I13.0 Hypertensive heart and chronic kidney disease with heart failure and stage 1 through stage 4 chronic kidney disease, or unspecified chronic kidney disease (principal); I50.33 Acute on chronic diastolic (congestive) heart failure; J96.21 Acute and chronic respiratory failure with hypoxia; J44.1 Chronic obstructive pulmonary disease with (acute) exacerbation; Z68.41 Body mass index [BMI] 40.0-44.9, adult; J96.12 Chronic respiratory failure with hypercapnia; Z86.19 Personal history of other infectious and parasitic diseases; Z20.828 Contact with and (suspected) exposure to other viral communicable diseases; F41.9 Anxiety disorder, unspecified; F32.9 Major depressive disorder, single episode, unspecified; E11.22 Type 2 diabetes mellitus with diabetic chronic kidney disease; N18.30 Chronic kidney disease, stage 3 unspecified; Z79.4 Long term (current) use of insulin; I25.10 Atherosclerotic heart disease of native coronary artery without angina pectoris; Z95.5 Presence of coronary angioplasty implant and graft; M79.7 Fibromyalgia; K21.9 Gastro-esophageal reflux disease without esophagitis; E78.5 Hyperlipidemia, unspecified; E11.42 Type 2 diabetes mellitus with diabetic polyneuropathy; I44.7 Left bundle-branch block, unspecified; E66.01 Morbid (severe) obesity due to excess calories; G47.30 Sleep apnea, unspecified; K44.9 Diaphragmatic hernia without obstruction or gangrene; K21.00 Gastro-esophageal reflux disease with esophagitis, without bleeding; K29.00 Acute gastritis without bleeding
CPT/HCPCS: 36415; 36600; 71045; 71275; 73620; 74019; 80048; 81003; 82375; 82607; 82746; 82805; 82948; 83036; 83050; 83735; 83880; 84484; 85025; 85027; 87635; 88305; 88342; 93005; 93970; 94640; 94660; 94667; 94668; 96374; 96375; 96376; 97110; 97116; 97161; 97165; 97530; 97535; 99285; A9270; C9803; G0378; J1650; J1815; J1940; J2405; J2704; J2930; J7120; J7512; Q9967; U0003

== ENCOUNTER 2020-08-27 13:25 | Outpatient (CLI) | payer MEDICARE, SELFPAY ==
--- NOTE | 2020-10-04 12:17 | WPDSLEEPSTUD ---
Sleep Study Date of Study: 08/27/20 Ordering Provider: Dr.Al-Janabi Chávez Interpreting Physician: Sleep Study Type: Split Polysomnogram Height: 1.63 m Weight: 108.862 kg Body Mass Index: 41.1 Neck Circumference: 40.64 cm [place]: 16 Reason for Sleep Study Patient has established diagnosis of obstructive sleep apnea. She also has a diagnosis of obstructive lung disease and diastolic heart failure. Patient has had recent repeated admissions due to increased dyspnea and was found to have chronic hypercarbic respiratory failure. Patient was placed on BiPAP support and during the hospitalization patient was not able to tolerate a fullface mask and has been using nasal pillows. Patient is being referred for repeat evaluation and BiPAP titration. Sleep History History of snoring, poor quality of sleep and daytime hypersomnolence. [facility] Past Medical History Medical History Anxiety Atrial fibrillation Chads Vasc 2 is 7 although she is not on long-term anticoagulation. Chronic anemia Chronic kidney disease, stage 3 Baseline creatinine is between 1.3 and 1.50. Chronic obstructive pulmonary disease Chronic pain Chronic respiratory failure with hypoxia On 2 to 3 L nasal cannula. Congestive heart failure Echocardiogram on 06/07/2020 showed grade 2 diastolic dysfunction, ejection fraction of 55 to 60%, moderate aortic stenosis, and moderate pulmonary hypertension without wall motion abnormalities. Coronary artery disease Status post angioplasty status stent to the mid LAD on 06/13/[address] Rodarte. COVID-19 (~05/2020) Depression Fibromyalgia Gastritis (~08/19/20) Gastroesophageal reflux disease Gout Hyperlipidemia Hypertension Insulin dependent type 2 diabetes mellitus Complicated by diabetic peripheral neuropathy. Hemoglobin A1c was 5.2% in July 2020. Large hiatal hernia Noted on EGD in July [address] Chaudhari. Left bundle branch block Obstructive sleep apnea Pneumonia Recurrent urinary tract infection Sinus bradycardia Surgical History Surgical History History of coronary artery stent placement (~06/13/20) Family History Family History Mother Acute myocardial infarction Other Diabetes mellitus Hypertension Social History Social History Social History: Surrogate decision maker: Theron Vicente, spouse. Code status: Full code. Smoking packs per day: 1 Smoking cigarettes per day: 20.0 Years smoked: 40 Smoking pack-years: 40.00 Smoking status: Former smoker Tobacco type: cigarettes Second hand tobacco smoke exposure: Yes Alcohol intake: never Drinks per week: 1 Substance use: never Substance use type: does not use Additional living arrangements comments: Lives in [place] with her spouse, children, and grandchildren. Gender identity (if verbalized by the patient): Female Spiritual care concerns: No Medications Home Medications Medication Instructions Recorded Confirmed Type amlodipine 5 mg PO DAILY 06/07/20 09/06/20 History atorvastatin 80 mg PO DAILY 06/07/20 09/06/20 History biotin 1 mg PO DAILY 06/07/20 09/06/20 History calcitriol 0.25 mcg PO DAILY 06/07/20 09/06/20 History cranberry extract 250 mg PO DAILY 06/07/20 09/06/20 History fenofibrate nanocrystallized 145 mg PO DAILY 06/07/20 09/06/20 History isosorbide mononitrate 30 mg PO DAILY 06/07/20 09/06/20 History pantoprazole 40 mg PO DAILY 06/07/20 09/06/20 History pregabalin 200 mg PO BID 06/07/20 09/06/20 History Aloe [place] Antifungal (micon) 1 applic TOPICAL Q12HR #[id number] g 06/16/20 09/06/20 Rx Lantus Solostar U-100 Insulin 10 unit SUBCUT DAILY #0 ml 06/16/20 09/06/20 Rx Minerin Creme 1 applic TOPICAL QAM #454 g 06/16/20 09/06/20 Rx albuterol sulfat
[2020-10-04 12:42] VITALS: BMI 41.1
== END 2020-08-27 13:26 | disposition home or self-care (01) ==
LOC: ANHCSM 10-02 13:25
PROVIDERS: PCP Internal Medicine; Visit Provider Internal Medicine Critical Care Medicine
DX: G47.30 Sleep apnea, unspecified (principal)
CPT/HCPCS: 95811

== ENCOUNTER 2020-09-06 10:19 | Inpatient (IN) | payer MEDICARE, SELFPAY ==
[2020-09-06] VITALS (18 sets, daily range): BP systolic 129–176; BP diastolic 76–111; PULSE 76–105; RESP 19–33; TEMP 36.1–37.9; O2SAT 92–100; BMI 38.9
--- NOTE | ~2020-09-06 | XR_ITS ---
EXAMINATION: XR chest 1V portable DATE: 09/12/2020 10:33 INDICATION: Shortness of breath. TECHNIQUE: A single frontal view of the chest was obtained. COMPARISON: Chest single view 09/09/2020, chest CT 08/12/2020 FINDINGS: There is a small left pleural effusion. There is a diffuse interstitial pattern in the lung s, consistent with mild pulmonary edema. There are airspace opacities at left lung base, likely atele ctasis. Cardiomegaly is noted. There is a large hiatal hernia. IMPRESSION: 1. Mild pulmonary edema with small left pleural effusion, stable from 09/09/2020. 2. Large hiatal hernia. 3. Cardiomegaly. Reviewed, dictated and finalized at location A. UNT CONSULTANT IMPRESSION: 1. Mild pulmonary edema with small left pleural effusion, stable from 09/09/2020 . 2. Large hiatal hernia. 3. Cardiomegaly.
--- NOTE | ~2020-09-06 | XR_ITS ---
EXAMINATION: XR chest 1V portable INDICATION: Congestive heart failure TECHNIQUE: Portable AP chest at 0548 hours COMPARISON: 09/06/2020 FINDINGS: A mild diffuse interstitial pattern persists without significant change. There is stable ca rdiomegaly. Small stable pleural effusions are present, left greater than right. Bibasilar airspace o pacities persist without significant change. IMPRESSION: 1. Cardiomegaly with mild pulmonary edema. 2. Stable pleural effusions. 3. Unchanged bibasilar airspace opacities, consistent with atelectasis versus pneumonia. Reviewed, dictated and finalized at location A. CTOR HOSPICE OPERATIONS IMPRESSION: 1. Cardiomegaly with mild pulmonary edema. 2. Stable pleural effusions. 3. Unchanged bibasilar airspace opacities, consistent with atelectasis versus p neumonia.
--- NOTE | ~2020-09-06 | US_ITS ---
EXAMINATION:US venous doppler LE BI INDICATION:Elevated d-dimer TECHNIQUE: Multiple grayscale, color flow and Doppler images of the right and left lower extremity de ep venous systems were obtained and reviewed. COMPARISON:08/13/2020 FINDINGS: The common femoral, superficial femoral and popliteal veins demonstrate normal respiratory variation, augmentation and compressibility. Color flow is also seen within the posterior tibial, pe roneal, greater saphenous and profunda veins. IMPRESSION: 1: No lower extremity deep venous thrombosis. Reviewed, dictated and finalized at location A. ERTING OPERATOR
--- NOTE | ~2020-09-06 | XR_ITS ---
EXAMINATION: XR chest 1V portable DATE: 09/06/2020 10:46 INDICATION: Cough and shortness of breath. TECHNIQUE: A single frontal view of the chest was obtained. COMPARISON: Chest single view 08/18/2020, chest CT 08/12/2020 FINDINGS: There are small pleural effusions. There are airspace opacities at the lung bases. No pneum othorax. Cardiomegaly is noted. IMPRESSION: 1. Stable airspace opacities at the lung bases, consistent with atelectasis versus pneumonia. 2. Stable small pleural effusions. 3. Cardiomegaly. Reviewed, dictated and finalized at location A. K GREASER IMPRESSION: 1. Stable airspace opacities at the lung bases, consistent with atelectasis alyx alicia pneumonia. 2. Stable small pleural effusions. 3. Cardiomegaly.
--- NOTE | 2020-09-06 10:28 | ECG_ITS ---
Measurements Intervals [place] Rate: 92 P: IA: 0 QRS: 3 QRSD: 147 T: 180 QT: 378 QTc: 468 Interpretive Statements ATRIAL FIBRILLATION LEFT BUNDLE BRANCH BLOCK BASELINE ARTIFACT- I, II, III, AVR, AVL, AVF ABNORMAL ECG Electronically Signed On 09-06-2020 10:38:11 HEADER UP by Rick Zapata D.O.
--- NOTE | 2020-09-06 10:48 | ED.SOB ---
HPI - SOB/Dyspnea History of Present Illness HPI Narrative: 80-year-old female w/ h/o COPD, CHF, hypertension, diabetes mellitus presents to the ED emergency department earlier today via EMS from home for evaluation of shortness of breath. She reports that she has had worsening SOB over the past few days. She is on 2-3LbyNC normally and she has been needing to increase it to feel comfortable. She also reports occasional fever. She feels that the chronic swelling in her legs may be worse. She does not check her weight at home. She has had multiple recent hospitalizations for cardiac and respiratory issues. She had COVID-19 a few months ago and has since had 1 negative test. Related Data Home Medications Medication Instructions Recorded Confirmed amlodipine 5 mg PO DAILY 06/07/20 09/06/20 atorvastatin 80 mg PO DAILY 06/07/20 09/06/20 biotin 1 mg PO DAILY 06/07/20 09/06/20 calcitriol 0.25 mcg PO DAILY 06/07/20 09/06/20 cranberry extract 250 mg PO DAILY 06/07/20 09/06/20 fenofibrate nanocrystallized 145 mg PO DAILY 06/07/20 09/06/20 isosorbide mononitrate 30 mg PO DAILY 06/07/20 09/06/20 pantoprazole 40 mg PO DAILY 06/07/20 09/06/20 pregabalin 200 mg PO BID 06/07/20 09/06/20 torsemide 20 mg PO DAILY 06/07/20 09/06/20 tizanidine 4 mg PO BID PRN 06/19/20 09/06/20 Allergies Allergy/AdvReac Type Severity Reaction Status Date / Time amitriptyline Allergy Unknown Unknown Verified 09/06/20 16:26 chlordiazepoxide Allergy Unknown Unknown Verified 09/06/20 16:26 Review of Systems Review of Systems: All systems reviewed & are unremarkable except as noted in HPI and below Constitutional: Constitutional: Reports fever(s) and Denies weakness ENT: Denies sore throat Cardiovascular: Cardiovascular: Denies chest pain Respiratory: Respiratory: Reports chest congestion, Reports cough and Reports dyspnea Gastrointestinal: Gastrointestinal: Denies abdominal pain and Denies nausea Genitourinary: Genitourinary: Denies dysuria Musculoskeletal: Musculoskeletal: Reports back pain Neurologic: Denies confusion [facility] Past Medical History Medical History Anxiety Atrial fibrillation Chads Vasc 2 is 7 although she is not on long-term anticoagulation. Chronic anemia Chronic kidney disease, stage 3 Baseline creatinine is between 1.3 and 1.50. Chronic obstructive pulmonary disease Chronic pain Chronic respiratory failure with hypoxia On 2 to 3 L nasal cannula. Congestive heart failure Echocardiogram on 06/07/2020 showed grade 2 diastolic dysfunction, ejection fraction of 55 to 60%, moderate aortic stenosis, and moderate pulmonary hypertension without wall motion abnormalities. Coronary artery disease Status post angioplasty status stent to the mid LAD on 06/13/[address] Rodarte. COVID-19 (~05/2020) Depression Fibromyalgia Gastritis (~08/19/20) Gastroesophageal reflux disease Gout Hyperlipidemia Hypertension Insulin dependent type 2 diabetes mellitus Complicated by diabetic peripheral neuropathy. Hemoglobin A1c was 5.2% in July 2020. Large hiatal hernia Noted on EGD in July [address] Chaudhari. Left bundle branch block Obstructive sleep apnea Pneumonia Recurrent urinary tract infection Sinus bradycardia Surgical History Surgical History History of coronary artery stent placement (~06/13/20) Family History Family History Mother Acute myocardial infarction Other Diabetes mellitus Hypertension Social History Social History Social History: Surrogate decision maker: Theron Vicente, spouse. Code status: Full code. Smoking packs per day: 1 Smoking cigarettes per day: 20.0 Years smoked: 40 Smoking pack-years: 40.00 Smoking status: Former smoker Tobacco type: cig
[2020-09-06 11:06] LABS: Hematocrit 34.2 % (37.0-47.0); Mean Corpuscular HGB Conc 29.2 g/dl (32-36); Mean Corpuscular Hemoglobin 29.3 pg (26-34); Mean Corpuscular Volume 100.3 fl (80-100); Mean Platelet Volume 11.9 fl (7.4-10.4); Platelet Count Result 208 k/mm3 (150-375); Red Blood Count 3.41 M/mm3 (4.2-5.4); Red Cell Distribution Width 16.2 % (11.5-14.5); White Blood Count 11.7 K/mm3 (4.5-10.0)
[2020-09-06 11:26] LABS: INR 0.9
[2020-09-06 11:27] LABS: Partial Thromboplastin Time 27.9 SECONDS (22.3-36.8)
[2020-09-06 11:29] LABS: CRP 0.5 mg/dL (<1.0); Lymphocytes Absolute Manual 0.46 K/mm3 (1.1-4.5); Monocytes Absolute Manual 0.23 K/mm3 (0.1-0.90); Monocytes Percent Manual 2 % (3-9); Neutrophils Percent Manual 94 % (46-73); Total Cells Counted 100
[2020-09-06 11:30] LABS: Ovalocytes 1+ (NORMAL); Platelet Estimate Adequate (Adequate)
[2020-09-06 11:31] LABS: Anisocytosis 1+ (NORMAL); Poikilocytosis 1+ (NORMAL)
[2020-09-06 11:32] LABS: Alanine Aminotransferase 23 U/L (4-35); Albumin Level 3.8 g/dL (3.5-5.1); Alkaline Phosphatase 52 U/L (38-126); Aspartate Amino Transferase 29 U/L (14-36); Bilirubin,Total 0.5 mg/dL (0.2-1.3); Blood Urea Nitrogen 43 mg/dL (7-17); Calcium 9.4 mg/dL (8.4-10.2); Carbon Dioxide > 40 mmol/L (22-30); Chloride 96 mmol/L (98-107); Estimated Glomerular Filt Rate 43; Glucose 164 mg/dL (65-105); Potassium 3.9 mmol/L (3.4-5.0); Sodium 142 mmol/L (137-145)
[2020-09-06 11:40] LABS: NT Pro B Type Natriuretic Pept 3280 PG/ML (5-100); Troponin I < 0.012 ng/mL (0.000-0.034)
[2020-09-06 12:55] LABS: Lactic Acid Reflex 1.2 mmol/L (0.7-2.1)
[2020-09-06 13:18] LABS: Alveolar/Arterial O2 Gradient 32.1 mmHg; Base Excess ABG 10.4 mEq/l (+/-2.0); Fractional Inspired Oxygen 32 %; HCO3 ABG 38.7 mEq/l (22.0-26.0); Oxygen Content ABG 14.5 %vol (16.0-22.0); Oxygen Saturation ABG 97.3 % (95.0-100.0); Oxyhemoglobin 96.2 % THb (90.0-100.0); PO2 ABG 107.3 mmHg (80.0-100.0); PO2 FiO2 Ratio Arterial Blood 3.35 %; Total Hemoglobin 10.6 g/dL (12.0-18.0); pH ABG 7.325 (7.350-7.450)
[2020-09-06 13:19] LABS: Device NASAL CANNULA; Modified Allen's Test Pass; PCO2 ABG 75.9 mmHg (35.0-45.0); Site Drawn LEFT RADIAL
[2020-09-06] MEDS: FUROSEMIDE INJ 40 MG/4 ML VIAL IV PUSH ×2 (13:33→21:16)
[2020-09-06 14:00] LABS: Add Urine Microscopic? NO; Appearance Urine Clear (Clear); Bilirubin Urine Negative (Negative); Blood Urine Negative (Negative); Color Urine Colorless (Yellow); Glucose Urine UA Negative (Negative); Ketones Urine Negative (Negative); Leukocyte Esterase Ur Negative LEU/UL (Negative); Nitrate Urine Negative (Negative); Protein Urine Negative (Negative); Specific Grav Ur 1.009 (1.001-1.035); Urobilinogen Urine Negative mg/dL (<2.0)
--- NOTE | 2020-09-06 14:45 | PM.IMHP ---
H&P: HPI History of Present Illness Date/Time: 09/06/20 14:45 Chief Complaint: Shortness of breath. Narrative: This is a 80-year-old female hypertension, type 2 diabetes mellitus, COPD with chronic respiratory failure on 2-3 L nasal cannula, congestive heart failure and several other comorbidities who presented to the emergency department earlier today via EMS from home for evaluation of shortness of breath. She is well known to the hospitalist service and this will be her 5th admission to the hospital since June 07, 2020 at at which time she presented with chest pain found to have non STEMI with subsequent cardiac catheterization on the showing a mid LAD lesion, treated with balloon angioplasty and stent. She was readmitted on June 19 with complaints of shortness of breath and weakness, treated for a COPD exacerbation. On June 28 she returned with fever and shortness of breath in which she was found to have COVID pneumonia. After her discharge on July 03 she did pretty well at home for over a month before being readmitted on August 12, once again with shortness of breath in which was treated for a COPD exacerbation. She was also diuresed during that stay due to volume overload. It should also be mentioned that during several of these stays she was placed on BiPAP for hypercarbia however was not always compliant with such. She did recently have an outpatient sleep study ?and I was told that I flunked it? however she has not heard anything about what or if any PAP therapy is to be prescribed. In any event, sometime early this morning she was wakened from sleep with shortness of breath and anterior pleuritic pain, prompting her daughter to call 911. On arrival to the emergency department her SpO2 was 96% on 3 L nasal cannula. Temperature of 100.2? F and mild leukocytosis. Chest x-ray showed stable lung findings, atelectasis versus pneumonia. With further questioning, she was surprised that she had a fever and she has not had sweats or chills. She has a rare, chronic cough which is unchanged as well as chronic, intermittent sinus congestion and rhinorrhea. No dysphagia or concerns for aspiration. She has chronic, fluctuating lower extremity edema which is at her baseline. No history of DVT or pulmonary embolism. Review of Systems Review of Systems: Narrative: Twelve systems were reviewed with pertinent positives and negatives as per HPI. She denies fever, chills, or sweats however did have a low-grade temperature on arrival to the emergency department today. No lightheadedness or dizziness. She occasionally has of fluttering sensation due to her AFib, but nothing significant. She has not had feelings of racing heart. She is not on long-term anticoagulation for unclear reasons. No exertional chest pain. She has generalized weakness, and occasionally feels as though her knees are going to ?buckle? when transferring from her recliner to her wheelchair or the commode. No recent falls. She denies nausea, vomiting, diarrhea, and dysuria. Diabetes is well controlled of 5.2%. No recent lows. Except as documented, all other systems were reviewed and are negative. [facility] Past Medical History Medical History (Updated 09/06/20 @ 15:10 by Arminda Morris PA-C) Anxiety Atrial fibrillation Chads Vasc 2 is 7 although she is not on long-term anticoagulation. Chronic anemia Chronic kidney disease, stage 3 Baseline creatinine is between 1.3 and 1.50. Chronic obstructive pulmonary disease Chronic pain Chronic respiratory failure with hypoxia On 2 to 3 L nasal cannula. Congestive heart failure Echocardiogram on 06/07/2020 showed grade 2 diastolic dysfunction, ejection fraction of 55 to 60%, moderate aortic stenosis, and moderate pulmonary hypertension without wall motion abnormalities. Coronary artery disease Status post angioplasty status stent to the mid LAD on 06/13/[address] Rodarte. COVID-19 (~05/2020) Depression Fibromyal
[2020-09-06 15:29] LABS: Glucose Point of Care 156 (65-105)
--- NOTE | 2020-09-06 17:20 | ADMGEN ---
This patient, Chandni Vicente, was admitted to IMU Room 210-01 on 09-06-2019 at 1500. Patient/family oriented to hospital policies and general routines including ID bracelet, bed and alarms, visiting hours, pain management, procedures, bathroom and other care routines, personal items, smoking policy, room service/diet, and visiting hours. Information on how to activate the Rapid Response Team has been discussed. Patient/Family are encouraged to report perceived risks to care and to ask questions if they do not understand what they are told or what they should do.
[2020-09-06] MEDS: IPRATROPIUM BR 0.02% INH SOLN 0.5 MG/2.5 ML VIAL INHALATION ×2 (17:34→21:51)
[2020-09-06] MEDS: ALBUTEROL SULFATE NEB 2.5 MG/0.5 ML INH 5 MG INHALATION ×2 (17:34→21:51)
[2020-09-06 21:31] LABS: Glucose Point of Care 191 (65-105)
[2020-09-06] MEDS: PREGABALIN (*CRX) 50 MG CAPSULE 200 MG PO (22:56)
[2020-09-06] MEDS: COLCHICINE 0.6 MG TABLET PO (22:56)
[2020-09-06 22:57] LABS: D Dimer 1.02 ug/mL (<0.48)
[2020-09-06] MEDS: ACETAMINOPHEN 325 MG TABLET 650 MG PO (22:57)
[2020-09-06] MEDS: TIZANIDINE HCL 4 MG TABLET PO (22:57)
[2020-09-06] MEDS: hydrALAZINE HCL 25 MG TABLET PO (22:57)
[2020-09-06 23:29] LABS: SARS-CoV-2 RNA PCR Negative
[2020-09-07] VITALS (28 sets, daily range): BP systolic 102–159; BP diastolic 48–89; PULSE 66–103; RESP 16–26; TEMP 36.2–37.2; O2SAT 97–100
[2020-09-07] MEDS: ALBUTEROL SULFATE NEB 2.5 MG/0.5 ML INH 5 MG INHALATION ×4 (04:06→20:14)
[2020-09-07] MEDS: IPRATROPIUM BR 0.02% INH SOLN 0.5 MG/2.5 ML VIAL INHALATION ×4 (04:06→20:14)
[2020-09-07 05:15] LABS: Hemoglobin 9.1 g/dL (12.0-15.0); Mean Corpuscular HGB Conc 29.4 g/dl (32-36); Mean Corpuscular Hemoglobin 29.3 pg (26-34); Mean Corpuscular Volume 99.7 fl (80-100); Mean Platelet Volume 11.9 fl (7.4-10.4); Platelet Count Result 172 k/mm3 (150-375); Red Blood Count 3.11 M/mm3 (4.2-5.4); Red Cell Distribution Width 16.3 % (11.5-14.5); White Blood Count 5.1 K/mm3 (4.5-10.0)
[2020-09-07 06:13] LABS: Alveolar/Arterial O2 Gradient 58.4 mmHg; Base Excess ABG 16.3 mEq/l (+/-2.0); Carboxyhemoglobin 0.3 % THb (0-2.0); Fractional Inspired Oxygen 30 %; HCO3 ABG 43.7 mEq/l (22.0-26.0); Methemoglobin ABG 0.1 %THb (0-1.5); Oxygen Content ABG 13.1 %vol (16.0-22.0); Oxygen Saturation ABG 93.6 % (95.0-100.0); Oxyhemoglobin 92.7 % THb (90.0-100.0); PO2 FiO2 Ratio Arterial Blood 2.37 %; Reduced Hemoglobin 6.9 %THb (0-5.0); pH ABG 7.402 (7.350-7.450)
[2020-09-07 06:14] LABS: Device NON-INVASIVE VENT; PCO2 ABG 71.9 mmHg (35.0-45.0); Site Drawn RIGHT BRACHIAL
[2020-09-07 06:15] LABS: Blood Urea Nitrogen 43 mg/dL (7-17); Calcium 8.5 mg/dL (8.4-10.2); Carbon Dioxide > 40 mmol/L (22-30); Chloride 94 mmol/L (98-107); Estimated CRCL calculation 36 ml/min; Estimated Glomerular Filt Rate 36; Glucose 117 mg/dL (65-105); Potassium 3.3 mmol/L (3.4-5.0); Sodium 141 mmol/L (137-145)
[2020-09-07 06:15] LABS: Non-Invasive Expiratory Pressure 8 CMH2O; Non-Invasive Inspiratory Pressure 16 CMH2O; Non-Invasive Vent Rate 4 /MIN
[2020-09-07 07:58] LABS: Glucose Point of Care 128 (65-105)
[2020-09-07] MEDS: EUCERIN CREAM 120 GM JAR 1 APPLIC TOPICAL (10:13)
[2020-09-07] MEDS: FERROUS SULFATE 324 MG TABLET PO ×2 (10:14→19:30)
[2020-09-07] MEDS: TORSEMIDE 20 MG TABLET PO (10:14)
[2020-09-07] MEDS: ASPIRIN 81 MG ENTERIC TABLET PO (10:14)
[2020-09-07] MEDS: COLCHICINE 0.6 MG TABLET PO ×2 (10:14→21:58)
[2020-09-07] MEDS: amLODIPine BESYLATE 5 MG TABLET PO (10:15)
[2020-09-07] MEDS: calcitrioL 0.25 MCG CAPSULE PO (10:15)
[2020-09-07] MEDS: ATORVASTATIN 40 MG TABLET 80 MG PO (10:15)
[2020-09-07] MEDS: PANTOPRAZOLE 40 MG TABLET PO (10:16)
[2020-09-07] MEDS: ISOSORBIDE MONONITRATE 30 MG TAB.ER.24H PO (10:16)
[2020-09-07] MEDS: FENOFIBRATE NANOCRYSTALLIZED 145 MG TABLET PO (10:17)
[2020-09-07] MEDS: MAGNESIUM OXIDE 400 MG TABLET PO (10:17)
[2020-09-07] MEDS: CLOPIDOGREL BISULFATE 75 MG TABLET PO (10:18)
[2020-09-07] MEDS: hydrALAZINE HCL 25 MG TABLET PO ×2 (10:23→19:30)
[2020-09-07] MEDS: LIDOCAINE 5% PATCH 1 PATCH TRANSDERM (10:25)
[2020-09-07] MEDS: ENOXAPARIN 40 MG/0.4 ML SYRINGE SUB-Q (10:25)
[2020-09-07] MEDS: PREGABALIN (*CRX) 50 MG CAPSULE 200 MG PO ×2 (10:28→19:30)
[2020-09-07] MEDS: INSULIN GLARGINE (*BKC) 100 UNITS/ML 10 UNITS SUB-Q (10:33)
--- NOTE | 2020-09-07 11:04 | PM.CNCAR ---
Assessment and Plan Assessment and plan (1) Acute and chronic respiratory failure with hypercapnia: Code(s): J96.22 - Acute and chronic respiratory failure with hypercapnia Status: Acute Assessment and Plan: recurrent admissions with the same Multifactorial with obesity/hypoventilation, COPD, likely sleep apnea, pulmonary HTN and diastolic CHF Her volume status is difficult to assess but she does not appear overtly volume overloaded and her Cr is up 1.4. I would continue her loop diuretics orally as at home and consider PRN IV diuresis if she does not improve. Further management per pulmonary. She would likely need CPAP or BiPAP (2) Atrial fibrillation: Code(s): I48.91 - Unspecified atrial fibrillation Status: Acute Assessment and Plan: rate well controlled with no blocking agents She is on ASA and plavix since recent PCI. WIll start Eliquis 5 mg BID given elevated CHADsVAsc score Will d/c ASA given significantly high bleeding risk on triple therapy (3) Morbid obesity with BMI of 40.0-44.9, adult: Code(s): E66.01 - Morbid (severe) obesity due to excess calories; Z68.41 - Body mass index [BMI]40.0-44.9, adult Status: Acute (4) Chronic diastolic CHF (congestive heart failure): Code(s): I50.32 - Chronic diastolic (congestive) heart failure Status: Acute Assessment and Plan: Resume Torsemide orally. Monitor in/out, kidney function and electrolytes History of Present Illness History of Present Illness Consult date/time: 09/07/20 11:04 80 y/o with h/o CAD s/p LAD stent in May 2020, COPD, sleep apnea, diastolic CHF, recent COVID pneumonia, chronic A fib who is seen in cardiac consultation for She is well known to me from recurrent admissions over the last few months. She presented initially in May with resp failure and at that time underwent heart cath for evaluation of elevated trop which revealed LAD disease for which she underwent PCI. Since then she had recurrent admission with resp failure that typically hypercanpnic and she has been using BiPAP during those recurrent admissions. She does not have Bipap at home yet though she just completed sleep study as part of arrangement of bipap at home. She also tested positive for COVID at some point and developed A fib but never had RVR and never required any blocking agents. She returns again now with dyspnea and ABG on admission showed hypercapnia and PH of 7.1 or which she was started on Bipap. She feels better now. She was noted to have fever of 100.2. She admits to chest pain but only when she is short of breath. EKG shows rate controlled A fib. Her Xray is unchanged from baseline with stable airspace disease and stable small effusions. Her labs notable for Cr 1.4 which is increased from her recent admission 1.2 she quit smoking longtime ago. Reason For Visit: Acute on Chronic Respiratory Failure, Pneumonia Review of Systems Review of Systems: All systems reviewed & are unremarkable except as noted in HPI and below Constitutional: Constitutional: Denies fatigue and Denies headache(s) Eyes: Eyes: Denies blurry vision ENT: Reports Normal hearing present and Denies headache(s) Cardiovascular: Cardiovascular: Denies chest pain, Denies diaphoresis, Denies pedal edema, Denies leg edema, Denies lightheadedness, Denies palpitations and Denies dyspnea Respiratory: Respiratory: Denies cough and Denies dyspnea Gastrointestinal: Gastrointestinal: Denies abdominal pain Musculoskeletal: Musculoskeletal: Denies back pain Neurologic: Reports Normal hearing present and Denies headache(s) Psychiatric: Psychiatric: Denies anxiety Endocrine: Endocrine: Denies fatigue and Denies palpitations [facility] Past Medical History Medical History (Updated 09/07/20 @ 12:26 by Kaylene Ham MD) Anxiety Atrial fibrillation Chads Vasc 2 is 7 although she is not on long-term anticoagulation. Chronic anemia Chronic kidney disease,
[2020-09-07 11:41] LABS: Glucose Point of Care 199 (65-105)
--- NOTE | 2020-09-07 13:16 | PM.CNPUL ---
Assessment and Plan Assessment and plan (1) Chronic obstructive pulmonary disease: Qualifiers: COPD type: unspecified COPD Qualified Code(s): J44.9 - Chronic obstructive pulmonary disease, unspecified Code(s): J44.9 - Chronic obstructive pulmonary disease, unspecified Status: Acute Assessment and Plan: Will continue continue treatment for COPD exacerbation with nebulized albuterol, Atrovent and budesonide. Patient was started on azithromycin and ceftriaxone for possible bibasilar pneumonia and will continue these medicines while awaiting culture results. I do not feel a need for systemic steroids at this time. Patient with chronic hypercarbia and her blood gas now on BiPAP is 7.40 / 70/71 on BiPAP 16/830% oxygen. Given patient's multiple admissions in the last 2 months will continue noninvasive ventilation at night. Patient states that she has a hard time wearing the BiPAP mask and I spent approximately 30 minutes adjusting the mask with respiratory therapy and adjusting the settings and the highest pressures that she could tolerate were an inspiratory pressure of 15 expiratory pressure of 11 inspiratory time of 1.2 and a rise of 3 which is the middle setting on our current machine. Her TV was 380-420 with minute ventilation 10.7. She wore this for about 20 minutes and said that it felt comfortable. I will check ABG in morning to assess ventilation. (2) RONAL (obstructive sleep apnea): Code(s): G47.33 - Obstructive sleep apnea (adult) (pediatric) Status: Acute Assessment and Plan: Patient with split night polysomnogram on 09/27/2019 with preliminary results apnea-hypopnea index 28 0.8 they had titers her bilevel up to 17/13 but I do not have the official AHI on those settings. Patient could not tolerate 17/13 in the hospital today and I will see if she tolerates 15/11. Will obtain official results in reading of polysomnogram when they are available. History of Present Illness History of Present Illness Consult date: 09/07/20 Requesting physician: Ashok Gonzales MD Reason for consult: COPD and obstructive sleep apnea Chief complaint: Acute on Chronic Respiratory Failure, Pneumonia Narrative: Patient is a 80-year-old female with a history of hypertension, type 2 diabetes, COPD with home O2 use at 2-3 L, no PFTs available, Chronic CO2 retention with a baseline blood gas of 7.38/68/70 on 3 L nasal cannula,pulmonary heart per tension with a estimated pulmonary pressure of 60 on echocardiogram from 06/07/2020 and mild centrilobular emphysema on her CT scan of the chest from 08/13/2020. The patient also has obstructive sleep apnea with a split night polysomnogram on 08/27/2020 with preliminary results demonstrating an apnea-hypopnea index of 28.8. Patient had difficulty titrating her BiPAP settings in the laboratory but it appears that her best pressures were 17/13 with 2 L bleed in. Patient also has a history of Ca cord coronary artery disease status post non ST elevation [place] on 06/07/2020 with a mid LAD stent on placed on 06/13/2020. Echocardiogram demonstrates a left ventricular systolic function is normal with an EF 55-60 grade 2 diastolic dysfunction moderate aortic valve stenosis with a mean gradient of 18 and a valve area of 1.6 sq cm. Of note the patient has been admitted to the hospital 4 times in the last 2 months for acute on chronic respiratory failure requiring BiPAP and treatment for COPD exacerbation and fluid overload. Patient's baseline is that she has chronic shortness of breath again she wears 2-3 L nasal cannula at home 247 she sleeps in a recliner because she can't lie flat and she can walk about 30 ft with a walker and uses a wheelchair at home. The patient was in her usual poor state of health and 2 days prior to admission at night she developed shortness of breath the next morning her shortness of breath persisted and throughout the day she developed a fever fatigue cough that was as
--- NOTE | 2020-09-07 14:46 | PM.IMPN ---
Progress Note: A&P Assessment and Plan (1) Acute and chronic respiratory failure with hypercapnia: Code(s): J96.22 - Acute and chronic respiratory failure with hypercapnia Status: Acute Assessment and Plan: 09/07/20 14:46 patient is 80-year-old female morbidly obese with chronic respiratory failure secondary to hypercapnia, COPD, diastolic dysfunction, patient has had several recent admissions with shortness of breath, and has been treated for diastolic dysfunction, patient had a sleep study and recently was diagnosed with sleep apnea, patient was seen by electron gun assembler suspect patient has a exacerbation of COPD recommended to continue updraft, Pulmicort and continues BiPAP, electron gun assembler himself spent over 30 minutes adjusting BiPAP mask for the patient and recommended the patient continue to wear the mask, patient also seen by application integration architect and suspect most of her symptoms are secondary to exacerbation of COPD, hypoventilation, and sleep apnea, recommended continue to diurese the patient with a oral Lasix, will continue those recommendation will continue to monitor the patient, have PT OT evaluate the patient and further recommendation to follow. (2) Pneumonia: Code(s): J18.9 - Pneumonia, unspecified organism Status: Acute Assessment and Plan: Concern for community-acquired pneumonia patient is started on Rocephin azithromycin will continue to monitor (3) Insulin dependent type 2 diabetes mellitus: Code(s): E11.9 - Type 2 diabetes mellitus without complications; Z79.4 - landing worker (current) use of insulin Status: Acute Assessment and Plan: Will continue home regimen and monitor (4) Chronic kidney disease, stage 3: Qualifiers: Chronic kidney disease stage 3 subtype: unspecified whether 3a or 3b Qualified Code(s): N18.30 - Chronic kidney disease, stage 3 unspecified Code(s): N18.30 - Chronic kidney disease, stage 3 unspecified Status: Acute Assessment and Plan: Patient with acute on chronic kidney disease patient is being orally diuresed will continue to monitor kidney function (5) Chronic obstructive pulmonary disease: Qualifiers: COPD type: unspecified COPD Qualified Code(s): J44.9 - Chronic obstructive pulmonary disease, unspecified Code(s): J44.9 - Chronic obstructive pulmonary disease, unspecified Status: Acute Assessment and Plan: Plan is above with updraft and Pulmicort (6) Hypertension: Qualifiers: Hypertension type: unspecified Qualified Code(s): I10 - Essential (primary) hypertension Code(s): I10 - Essential (primary) hypertension Status: Chronic Assessment and Plan: Will continue home regimen and monitor (7) Hyperlipidemia: Qualifiers: Hyperlipidemia type: unspecified Qualified Code(s): E78.5 - Hyperlipidemia, unspecified Code(s): E78.5 - Hyperlipidemia, unspecified Status: Chronic Assessment and Plan: Will continue home regimen and monitor (8) Chronic anemia: Code(s): D64.9 - Anemia, unspecified Status: Chronic Assessment and Plan: Will do iron profile (9) Atrial fibrillation: Code(s): I48.91 - Unspecified atrial fibrillation Status: Acute Assessment and Plan: Rate is controlled patient on aspirin Plavix Additional Plan Patient was started on BiPAP in the emergency department but has removed it to eat dinner and she appears very comfortable. Will attempt to get records from her recent sleep study for recommendations regarding NIPPV at nighttime. Chest x-ray shows stable at the bases, consistent with atelectasis versus pneumonia. Given her low-grade fever and leukocytosis, she will empirically be started on antibiotics for possible bacterial pneumonia. There are concerns for pulmonary embolism given reports of pretty sudden onset of shortness of breath and pleuritic chest pain although she is not requi
[2020-09-07 16:35] LABS: Glucose Point of Care 178 (65-105)
[2020-09-07] MEDS: BUDESONIDE RESPULE NEB 0.5 MG/2 ML AMP INHALATION (20:14)
[2020-09-07 21:08] LABS: Glucose Point of Care 167 (65-105)
[2020-09-07] MEDS: TIZANIDINE HCL 4 MG TABLET PO (21:59)
[2020-09-07] MEDS: ACETAMINOPHEN 325 MG TABLET 650 MG PO (22:01)
[2020-09-08] VITALS (25 sets, daily range): BP systolic 109–140; BP diastolic 56–79; PULSE 62–98; RESP 16–22; TEMP 35.7–36.8; O2SAT 96–100
[2020-09-08] MEDS: ALBUTEROL SULFATE NEB 2.5 MG/0.5 ML INH 5 MG INHALATION ×4 (02:40→20:20)
[2020-09-08] MEDS: IPRATROPIUM BR 0.02% INH SOLN 0.5 MG/2.5 ML VIAL INHALATION ×4 (02:41→20:20)
[2020-09-08 04:04] LABS: Alveolar/Arterial O2 Gradient 47.6 mmHg; Fractional Inspired Oxygen 30 %; HCO3 ABG 43.5 mEq/l (22.0-26.0); Oxygen Saturation ABG 96.9 % (95.0-100.0); Oxyhemoglobin 95.6 % THb (90.0-100.0); PO2 ABG 90.3 mmHg (80.0-100.0); PO2 FiO2 Ratio Arterial Blood 3.01 %; Total Hemoglobin 9.6 g/dL (12.0-18.0); pH ABG 7.445 (7.350-7.450)
[2020-09-08 04:06] LABS: Device NON-INVASIVE VENT; Modified Allen's Test Pass; Non-Invasive Inspiratory Pressure 15 CMH2O; Non-Invasive Vent Rate 12 /MIN; PCO2 ABG 64.7 mmHg (35.0-45.0); Site Drawn RIGHT RADIAL
[2020-09-08 04:07] LABS: Non-Invasive Expiratory Pressure 11 CMH2O
[2020-09-08 07:54] LABS: Glucose Point of Care 122 (65-105)
[2020-09-08] MEDS: EUCERIN CREAM 120 GM JAR 1 APPLIC TOPICAL (08:10)
[2020-09-08] MEDS: FERROUS SULFATE 324 MG TABLET PO ×2 (08:11→17:35)
[2020-09-08] MEDS: calcitrioL 0.25 MCG CAPSULE PO (08:12)
[2020-09-08] MEDS: MAGNESIUM OXIDE 400 MG TABLET PO (08:12)
[2020-09-08] MEDS: PANTOPRAZOLE 40 MG TABLET PO (08:13)
[2020-09-08] MEDS: LIDOCAINE 5% PATCH 1 PATCH TRANSDERM (08:14)
[2020-09-08] MEDS: BUDESONIDE RESPULE NEB 0.5 MG/2 ML AMP INHALATION ×2 (08:15→20:20)
[2020-09-08] MEDS: FENOFIBRATE NANOCRYSTALLIZED 145 MG TABLET PO (08:17)
[2020-09-08] MEDS: ISOSORBIDE MONONITRATE 30 MG TAB.ER.24H PO (08:17)
[2020-09-08] MEDS: PREGABALIN (*CRX) 50 MG CAPSULE 200 MG PO ×2 (08:17→17:33)
[2020-09-08] MEDS: ATORVASTATIN 40 MG TABLET 80 MG PO (08:18)
[2020-09-08] MEDS: COLCHICINE 0.6 MG TABLET PO ×2 (08:18→21:25)
[2020-09-08] MEDS: ASPIRIN 81 MG ENTERIC TABLET PO (08:18)
[2020-09-08] MEDS: TORSEMIDE 20 MG TABLET PO (08:19)
[2020-09-08] MEDS: amLODIPine BESYLATE 5 MG TABLET PO (08:19)
[2020-09-08] MEDS: ENOXAPARIN 40 MG/0.4 ML SYRINGE SUB-Q (08:20)
[2020-09-08] MEDS: CLOPIDOGREL BISULFATE 75 MG TABLET PO (08:20)
[2020-09-08] MEDS: hydrALAZINE HCL 25 MG TABLET PO ×2 (08:20→17:35)
[2020-09-08] MEDS: INSULIN GLARGINE (*BKC) 100 UNITS/ML 10 UNITS SUB-Q (08:30)
--- NOTE | 2020-09-08 10:06 | PM.PNPUL ---
Progress Note: A&P Assessment and Plan (1) Chronic obstructive pulmonary disease: Code(s): J44.9 - Chronic obstructive pulmonary disease, unspecified Status: Acute Assessment and Plan: 09/07 Will continue continue treatment for COPD exacerbation with nebulized albuterol, Atrovent and budesonide. Patient was started on azithromycin and ceftriaxone for possible bibasilar pneumonia and will continue these medicines while awaiting culture results. I do not feel a need for systemic steroids at this time. Patient with chronic hypercarbia and her blood gas now on BiPAP is 7.40 / 70/71 on BiPAP 16/830% oxygen. Given patient's multiple admissions in the last 2 months will continue noninvasive ventilation at night. Patient states that she has a hard time wearing the BiPAP mask and I spent approximately 30 minutes adjusting the mask with respiratory therapy and adjusting the settings and the highest pressures that she could tolerate were an inspiratory pressure of 15 expiratory pressure of 11 inspiratory time of 1.2 and a rise of 3 which is the middle setting on our current machine. Her TV was 380-420 with minute ventilation 10.7. She wore this for about 20 minutes and said that it felt comfortable. I will check ABG in morning to assess ventilation. 09/08 Patient wore BiPAP 15/11 with 30% last night and ABG 7.45/65/90. She wore the mask but stated that it drioove her crazy. Did get some sleep with mask. No wheezes and breathing aboout same with sats 98% on 3 L NC. Continue albuterol 5 mg Q 6, atrovent neb 0.5 Q 6, budesonide .5 mg Q 12 for now. On day 3 azithro and ceftriaxone with negative cultures. Will check CXR inmorning. Will need BiPAP set up at home for discharge. (2) RONAL (obstructive sleep apnea): Code(s): G47.33 - Obstructive sleep apnea (adult) (pediatric) Status: Acute Assessment and Plan: 09/07 Patient with split night polysomnogram on 09/27/2019 with preliminary results apnea-hypopnea index 28 0.8 they had titers her bilevel up to 17/13 but I do not have the official AHI on those settings. Patient could not tolerate 17/13 in the hospital today and I will see if she tolerates 15/11. Will obtain official results in reading of polysomnogram when they are available. 09/08 Used BiPAP BiPAP 14/07 with 30% last night and ABG 7.45/65/90. Continue use for now. Will need BiPAP set up for home on discharge. Subjective Date/time seen: Consult date: 09/07/20 Reason for consult: COPD and obstructive sleep apnea Chief complaint: Acute on Chronic Respiratory Failure, Pneumonia HPI Narrative: Patient is a 80-year-old female with a history of hypertension, type 2 diabetes, COPD with home O2 use at 2-3 L, no PFTs available, Chronic CO2 retention with a baseline blood gas of 7.38/68/70 on 3 L nasal cannula,pulmonary heart per tension with a estimated pulmonary pressure of 60 on echocardiogram from 06/07/2020 and mild centrilobular emphysema on her CT scan of the chest from 08/13/2020. The patient also has obstructive sleep apnea with a split night polysomnogram on 08/27/2020 with preliminary results demonstrating an apnea-hypopnea index of 28.8. Patient had difficulty titrating her BiPAP settings in the laboratory but it appears that her best pressures were 17/13 with 2 L bleed in. Patient also has a history of Ca cord coronary artery disease status post non ST elevation [place] on 06/07/2020 with a mid LAD stent on placed on 06/13/2020. Echocardiogram demonstrates a left ventricular systolic function is normal with an EF 55-60 grade 2 diastolic dysfunction moderate aortic valve stenosis with a mean gradient of 18 and a valve area of 1.6 sq cm. Of note the patient has been admitted to the hospital 4 times in the last 2 months for acute on chronic respiratory failure requiring BiPAP and treatment for COPD exacerbation and fluid overload. Patient's baseline is that she has chronic shortness of breath again she wears 2-3 L nasal cannula at h
--- NOTE | 2020-09-08 10:40 | ECG_ITS ---
Measurements Intervals [place] Rate: 93 P: [place]: 0 QRS: -11 QRSD: 145 T: 0 QT: 400 QTc: 500 Interpretive Statements ATRIAL FIBRILLATION LEFT BUNDLE BRANCH BLOCK ABNORMAL ECG Electronically Signed On 09-08-2020 16:33:51 CORRESPONDENT by Rick Zapata D.O.
[2020-09-08] MEDS: ACETAMINOPHEN 325 MG TABLET 650 MG PO ×2 (11:51→17:33)
[2020-09-08] MEDS: TIZANIDINE HCL 4 MG TABLET PO ×2 (11:52→21:25)
[2020-09-08 12:33] LABS: Hematocrit 32.4 % (37.0-47.0); Hemoglobin 9.8 g/dL (12.0-15.0); Mean Corpuscular HGB Conc 30.2 g/dl (32-36); Mean Corpuscular Hemoglobin 29.3 pg (26-34); Platelet Count Result 206 k/mm3 (150-375); Red Blood Count 3.34 M/mm3 (4.2-5.4); Red Cell Distribution Width 16.3 % (11.5-14.5); White Blood Count 5.9 K/mm3 (4.5-10.0)
[2020-09-08 12:45] LABS: Potassium 3.3 mmol/L (3.4-5.0)
[2020-09-08 12:48] LABS: Blood Urea Nitrogen 37 mg/dL (7-17); Calcium 8.6 mg/dL (8.4-10.2); Carbon Dioxide > 40 mmol/L (22-30); Chloride 90 mmol/L (98-107); Estimated CRCL calculation 37 ml/min; Estimated Glomerular Filt Rate 36; Glucose 173 mg/dL (65-105); Magnesium 1.5 mg/dL (1.6-2.3); Sodium 140 mmol/L (137-145)
[2020-09-08 12:51] LABS: Glucose Point of Care 172 (65-105)
--- NOTE | 2020-09-08 12:53 | PM.PNCARD ---
Progress Note: A&P Assessment and Plan (1) Acute and chronic respiratory failure with hypercapnia: Code(s): J96.22 - Acute and chronic respiratory failure with hypercapnia Status: Acute Assessment and Plan: recurrent admissions with the same Multifactorial with obesity/hypoventilation, COPD, likely sleep apnea, pulmonary HTN and diastolic CHF Her volume status is difficult to assess but she does not appear overtly volume overloaded and her Cr is up 1.4. I would continue her loop diuretics orally as at home (Torsdmide) Creatinine pending this am. Consider PRN IV diuresis if she does not improve. Further management per pulmonary. Need arrangement for BIPAP QHS at home. (2) Atrial fibrillation: Code(s): I48.91 - Unspecified atrial fibrillation Status: Acute Assessment and Plan: rate well controlled with no blocking agents She is on ASA and plavix since recent PCI. WIll start Eliquis 5 mg BID given elevated CHADsVAsc score Will d/c ASA given significantly high bleeding risk on triple therapy (3) Morbid obesity with BMI of 40.0-44.9, adult: Code(s): E66.01 - Morbid (severe) obesity due to excess calories; Z68.41 - Body mass index [BMI]40.0-44.9, adult Status: Acute (4) Chronic diastolic CHF (congestive heart failure): Code(s): I50.32 - Chronic diastolic (congestive) heart failure Status: Acute Assessment and Plan: Resume Torsemide orally. Monitor in/out, kidney function and electrolytes (labs pending this am) Subjective Date/time seen: 09/08/20 12:53 Feels about the same compared to yesterday. Tele, A fib Rate ~90s Review of Systems Review of Systems: All systems reviewed & are unremarkable except as noted in HPI and below Constitutional: Constitutional: Denies fatigue and Denies headache(s) Eyes: Eyes: Denies blurry vision ENT: Reports Normal hearing present and Denies headache(s) Cardiovascular: Cardiovascular: Denies chest pain, Denies diaphoresis, Denies pedal edema, Denies leg edema, Denies lightheadedness, Denies palpitations and Denies dyspnea Respiratory: Respiratory: Denies cough and Denies dyspnea Gastrointestinal: Gastrointestinal: Denies abdominal pain Musculoskeletal: Musculoskeletal: Denies back pain Neurologic: Reports Normal hearing present and Denies headache(s) Psychiatric: Psychiatric: Denies anxiety Endocrine: Endocrine: Denies fatigue and Denies palpitations Exam Narrative: Exam Narrative: Obese. In no acute distress. Normal S1,S2. Irregular rhythm but no tachy. decrease breath sounds b/l trace lower ext edema Const: General: no acute distress Eyes: Sclera: sclerae normal Neck: Neck: no JVD Carotids: no bruits Resp: Effort & Inspection: normal respiratory effort Auscultation: clear to auscultation bilaterally Cardio: Rate: regular rate and not tachycardic Rhythm: regular rhythm Heart sounds: no gallops, no murmurs and no rubs Skin: General skin exam: normal color Neuro: Cranial nerves: Yes Normal hearing present Speech: normal speech Extrem: General: normal to inspection and no edema Psych: Affect: normal affect Objective Data Vital Signs Vital Signs: Vital Signs - 24 hr 09/07/20 13:09 09/07/20 13:18 09/07/20 14:00 Temperature Pulse Rate 91 87 82 Respiratory Rate 22 H 20 Blood Pressure Pulse Oximetry 09/07/20 16:00 09/07/20 17:07 09/07/20 18:00 Temperature 36.7 C Pulse Rate 86 78 Respiratory Rate 20 Blood Pressure 143/75 H Pulse Oximetry 100 100 09/07/20 19:55 09/07/20 20:00 09/07/20 20:14 Temperature 37.2 C Pulse Rate 74 79 76 Respiratory Rate 18 18 Blood Pressure 147/69 H Pulse Oximetry 99 99 09/07/20 20:19 09/07/20 20:34 09/07/20 22:00 Temperature Pulse Rate 79 81 Respiratory Rate 18 Blood Pressure Pulse Oximetry 100 09/07/20 23:27 09/07/20 23:50 09/08/20 00:00 Temperature 37.0 C Pulse Rate 76 74 69 Respirator
[2020-09-08 12:57] LABS: Troponin I 0.026 ng/mL (0.000-0.034)
[2020-09-08] MEDS: APIXABAN 5 MG TABLET PO ×2 (14:49→21:25)
--- NOTE | 2020-09-08 15:52 | PM.IMPN ---
Progress Note: A&P Assessment and Plan (1) Acute and chronic respiratory failure with hypercapnia: Code(s): J96.22 - Acute and chronic respiratory failure with hypercapnia Status: Acute Assessment and Plan: 09/08/20 15:52 patient is 80-year-old female morbidly obese with chronic respiratory failure secondary to hypercapnia, COPD, diastolic dysfunction, patient has had several recent admissions with shortness of breath, and has been treated for diastolic dysfunction, patient had a sleep study and recently was diagnosed with sleep apnea, patient was seen by deck scaler suspect patient has a exacerbation of COPD recommended to continue updraft, Pulmicort and continues BiPAP, deck scaler himself spent over 30 minutes adjusting BiPAP mask for the patient and recommended the patient continue to wear the mask, patient also seen by casket coverer and suspect most of her symptoms are secondary to exacerbation of COPD, hypoventilation, and sleep apnea, recommended continue to diurese the patient with a oral Lasix, will continue those recommendation will continue to monitor the patient, have PT OT evaluate the patient and further recommendation to follow. 09/08 patient wore BiPAP last night currently on nasal cannula is feeling much better not as short of breath seen by deck scaler recommending continue BiPAP, seen by casket coverer continue low-dose Bumex for diastolic dysfunction, atrial fibrillation rate is controlled started the patient Eliquis 5 mg b.i.d. for high CHADsVAsc score, patient clinically symptoms are improving will have a PT OT evaluate the patient patient will benefit from acute rehab before going home. (2) Pneumonia: Code(s): J18.9 - Pneumonia, unspecified organism Status: Acute Assessment and Plan: Concern for community-acquired pneumonia patient is started on Rocephin azithromycin will continue to monitor (3) Insulin dependent type 2 diabetes mellitus: Code(s): E11.9 - Type 2 diabetes mellitus without complications; Z79.4 - alf (current) use of insulin Status: Acute Assessment and Plan: Will continue home regimen and monitor (4) Chronic kidney disease, stage 3: Code(s): N18.30 - Chronic kidney disease, stage 3 unspecified Status: Acute Assessment and Plan: Patient with acute on chronic kidney disease patient is being orally diuresed will continue to monitor kidney function (5) Chronic obstructive pulmonary disease: Code(s): J44.9 - Chronic obstructive pulmonary disease, unspecified Status: Acute Assessment and Plan: Plan is above with katie and Pulmariort (6) Hypertension: Qualifiers: Hypertension type: unspecified Qualified Code(s): I10 - Essential (primary) hypertension Code(s): I10 - Essential (primary) hypertension Status: Chronic Assessment and Plan: Will continue home regimen and monitor (7) Hyperlipidemia: Qualifiers: Hyperlipidemia type: unspecified Qualified Code(s): E78.5 - Hyperlipidemia, unspecified Code(s): E78.5 - Hyperlipidemia, unspecified Status: Chronic Assessment and Plan: Will continue home regimen and monitor (8) Chronic anemia: Code(s): D64.9 - Anemia, unspecified Status: Chronic Assessment and Plan: Will do iron profile (9) Atrial fibrillation: Code(s): I48.91 - Unspecified atrial fibrillation Status: Acute Assessment and Plan: Rate is controlled patient on aspirin Plavix Subjective Date/time seen: 09/08/20 15:52 patient is 80-year-old female morbidly obese with chronic respiratory failure secondary to hypercapnia, COPD, diastolic dysfunction, patient has had several recent admissions with shortness of breath, and has been treated for diastolic dysfunction, patient had a sleep study and recently was diagnosed with sleep apnea, patient was seen by deck scaler suspect patient has a exacerbation of
[2020-09-08 17:48] LABS: Glucose Point of Care 130 (65-105)
[2020-09-08 20:40] LABS: Glucose Point of Care 215 (65-105)
--- NOTE | 2020-09-08 21:30 | PM.EVENT ---
Event Note Event Note Event Note: I was notified that the patient was incidentally given metoprolol 25 mg p.o. with evening medication pass on 09/08/2020. I have not been able to confirm whether or not it was metoprolol tartrate or succinate. On reviewing the patient's chart it looks like she had previously been on AV spencer blockers due to her history of atrial fibrillation however those were discontinued due to development of bradycardia. At this time will continue to monitor her closely on telemetry. Blood pressure and heart rate have been stable as of now and she will be monitored closely. Atropine at bedside. <Arminda Morris PA-C - Last Filed: 09/09/20 00:32>
[2020-09-09] VITALS (23 sets, daily range): BP systolic 102–152; BP diastolic 58–85; PULSE 52–100; RESP 18–24; TEMP 36.4–36.7; O2SAT 94–100
[2020-09-09] MEDS: IPRATROPIUM BR 0.02% INH SOLN 0.5 MG/2.5 ML VIAL INHALATION ×4 (02:20→20:31)
[2020-09-09] MEDS: ALBUTEROL SULFATE NEB 2.5 MG/0.5 ML INH 5 MG INHALATION ×4 (02:20→20:31)
[2020-09-09] MEDS: ACETAMINOPHEN 325 MG TABLET 650 MG PO ×4 (04:59→23:41)
[2020-09-09] MEDS: TIZANIDINE HCL 4 MG TABLET PO ×3 (05:01→20:25)
[2020-09-09 06:05] LABS: Blood Urea Nitrogen 40 mg/dL (7-17); Calcium 8.4 mg/dL (8.4-10.2); Carbon Dioxide > 40 mmol/L (22-30); Chloride 93 mmol/L (98-107); Estimated CRCL calculation 37 ml/min; Estimated Glomerular Filt Rate 36; Glucose 128 mg/dL (65-105); Potassium 3.7 mmol/L (3.4-5.0); Sodium 140 mmol/L (137-145)
[2020-09-09] MEDS: BUDESONIDE RESPULE NEB 0.5 MG/2 ML AMP INHALATION ×2 (08:29→20:31)
--- NOTE | 2020-09-09 09:13 | PM.PNCARD ---
Progress Note: A&P Assessment and Plan (1) Acute and chronic respiratory failure with hypercapnia: Code(s): J96.22 - Acute and chronic respiratory failure with hypercapnia Status: Acute Assessment and Plan: recurrent admissions with the same Multifactorial with obesity/hypoventilation, COPD, sleep apnea, pulmonary HTN and diastolic CHF Continue home dose of Torsemide 20 mg daily PO. Creatinine stable ~ 1.4 Consider extra PRN dose in afternoon on discharge on PRN basis for dyspnea or worsening lower ext edema. Need arrangement for BIPAP QHS at home (2) Atrial fibrillation: Code(s): I48.91 - Unspecified atrial fibrillation Status: Acute Assessment and Plan: rate well controlled with no blocking agents SHe had recent PCI in May and has been on ASA and plavix. Started on Eliquis 5 mg BID this admission given elevated CHADsVAsc score Will d/c ASA given significantly high bleeding risk on triple therapy (3) Morbid obesity with BMI of 40.0-44.9, adult: Code(s): E66.01 - Morbid (severe) obesity due to excess calories; Z68.41 - Body mass index [BMI]40.0-44.9, adult Status: Acute (4) Chronic diastolic CHF (congestive heart failure): Code(s): I50.32 - Chronic diastolic (congestive) heart failure Status: Acute Assessment and Plan: plan as outlined above Subjective Date/time seen: 09/09/20 09:13 She feels about the same compared to yesterday. No dyspnea at rest but she is not sure how she would do if she gets up and walk. PT luis armando is pending this am Review of Systems Review of Systems: All systems reviewed & are unremarkable except as noted in HPI and below Constitutional: Constitutional: Denies fatigue and Denies headache(s) Eyes: Eyes: Denies blurry vision ENT: Reports Normal hearing present and Denies headache(s) Cardiovascular: Cardiovascular: Denies chest pain, Denies diaphoresis, Denies pedal edema, Denies leg edema, Denies lightheadedness, Denies palpitations and Denies dyspnea Respiratory: Respiratory: Denies cough and Denies dyspnea Gastrointestinal: Gastrointestinal: Denies abdominal pain Musculoskeletal: Musculoskeletal: Denies back pain Neurologic: Reports Normal hearing present and Denies headache(s) Psychiatric: Psychiatric: Denies anxiety Endocrine: Endocrine: Denies fatigue and Denies palpitations Exam Narrative: Exam Narrative: Obese. In no acute distress. Normal S1,S2. Irregular rhythm but no tachy. decrease breath sounds b/l trace lower ext edema Const: General: no acute distress Eyes: Sclera: sclerae normal Neck: Neck: no JVD Carotids: no bruits Resp: Effort & Inspection: normal respiratory effort Auscultation: clear to auscultation bilaterally Cardio: Rate: regular rate and not tachycardic Rhythm: regular rhythm Heart sounds: no gallops, no murmurs and no rubs Skin: General skin exam: normal color Neuro: Cranial nerves: Yes Normal hearing present Speech: normal speech Extrem: General: normal to inspection and no edema Psych: Affect: normal affect Objective Data Vital Signs Vital Signs: Vital Signs - 24 hr 09/08/20 10:00 09/08/20 11:51 09/08/20 12:00 Temperature 36.1 C L Pulse Rate 94 97 95 Respiratory Rate 18 Blood Pressure 112/62 Pulse Oximetry 99 100 09/08/20 13:55 09/08/20 14:00 09/08/20 14:05 Temperature Pulse Rate 75 74 72 Respiratory Rate 20 20 Blood Pressure Pulse Oximetry 09/08/20 16:00 09/08/20 18:00 09/08/20 19:54 Temperature 35.7 C L 36.4 C L Pulse Rate 84 98 85 Respiratory Rate 18 20 Blood Pressure 109/60 123/68 Pulse Oximetry 100 100 09/08/20 20:00 09/08/20 20:20 09/08/20 22:00 Temperature Pulse Rate 79 73 74 Respiratory Rate 18 18 Blood Pressure Pulse Oximetry 100 100 09/08/20 23:00 09/08/20 23:28 09/09/20 00:00 Temperature 36.6 C Pulse Rate 71 70 70 Respiratory Rate 22 H 20 20 Blood Pressure 117/68 Pulse Oxim
[2020-09-09] MEDS: FERROUS SULFATE 324 MG TABLET PO ×2 (09:56→17:11)
[2020-09-09] MEDS: amLODIPine BESYLATE 5 MG TABLET PO (09:57)
[2020-09-09] MEDS: COLCHICINE 0.6 MG TABLET PO ×2 (09:58→20:25)
[2020-09-09] MEDS: ATORVASTATIN 40 MG TABLET 80 MG PO (09:58)
[2020-09-09] MEDS: hydrALAZINE HCL 25 MG TABLET PO ×2 (09:58→17:11)
[2020-09-09] MEDS: FENOFIBRATE NANOCRYSTALLIZED 145 MG TABLET PO (09:58)
[2020-09-09] MEDS: CLOPIDOGREL BISULFATE 75 MG TABLET PO (09:58)
[2020-09-09] MEDS: APIXABAN 5 MG TABLET PO ×2 (09:58→20:25)
[2020-09-09] MEDS: calcitrioL 0.25 MCG CAPSULE PO (09:58)
[2020-09-09] MEDS: ISOSORBIDE MONONITRATE 30 MG TAB.ER.24H PO (09:59)
[2020-09-09] MEDS: LIDOCAINE 5% PATCH 1 PATCH TRANSDERM (09:59)
[2020-09-09] MEDS: INSULIN GLARGINE (*BKC) 100 UNITS/ML 10 UNITS SUB-Q (09:59)
[2020-09-09] MEDS: MAGNESIUM OXIDE 400 MG TABLET PO (10:01)
[2020-09-09] MEDS: PANTOPRAZOLE 40 MG TABLET PO (10:01)
[2020-09-09] MEDS: EUCERIN CREAM 120 GM JAR 1 APPLIC TOPICAL (10:01)
[2020-09-09] MEDS: TORSEMIDE 20 MG TABLET PO (10:01)
--- NOTE | 2020-09-09 10:04 | PM.PNPUL ---
Progress Note: A&P Assessment and Plan (1) Chronic obstructive pulmonary disease: Code(s): J44.9 - Chronic obstructive pulmonary disease, unspecified Status: Acute Assessment and Plan: 09/07 Will continue continue treatment for COPD exacerbation with nebulized albuterol, Atrovent and budesonide. Patient was started on azithromycin and ceftriaxone for possible bibasilar pneumonia and will continue these medicines while awaiting culture results. I do not feel a need for systemic steroids at this time. Patient with chronic hypercarbia and her blood gas now on BiPAP is 7.40 / 70/71 on BiPAP 16/830% oxygen. Given patient's multiple admissions in the last 2 months will continue noninvasive ventilation at night. Patient states that she has a hard time wearing the BiPAP mask and I spent approximately 30 minutes adjusting the mask with respiratory therapy and adjusting the settings and the highest pressures that she could tolerate were an inspiratory pressure of 15 expiratory pressure of 11 inspiratory time of 1.2 and a rise of 3 which is the middle setting on our current machine. Her TV was 380-420 with minute ventilation 10.7. She wore this for about 20 minutes and said that it felt comfortable. I will check ABG in morning to assess ventilation. 09/08 Patient wore BiPAP 15/11 with 30% last night and ABG 7.45/65/90. She wore the mask but stated that it drioove her crazy. Did get some sleep with mask. No wheezes and breathing aboout same with sats 98% on 3 L NC. Continue albuterol 5 mg Q 6, atrovent neb 0.5 Q 6, budesonide .5 mg Q 12 for now. On day 3 azithro and ceftriaxone with negative cultures. Will check CXR inmorning. Will need BiPAP set up at home for discharge. 09/0909/09/20 Patient wore BiPAP 15/11 with 30% last night from 23:00 to 01:00 and 02:00 to 5:48 (about 6 hours). Regarding her respiratory failure we are treating COPD exacerbation (no wheezing now on bronchodilators and ICS), bronchitis (CXR today unchanged and I would finish 5 days total antibiotics), fluid overload (on demedex), and RONAL (on BiPAP). She is on anticoagulation for Afib. Once these conditions are treated she may still have SOB from obesity and deconditioning. I would consider acute rehab stay . (2) RONAL (obstructive sleep apnea): Code(s): G47.33 - Obstructive sleep apnea (adult) (pediatric) Status: Acute Assessment and Plan: 09/07 Patient with split night polysomnogram on 09/27/2019 with preliminary results apnea-hypopnea index 28 0.8 they had titers her bilevel up to 17/13 but I do not have the official AHI on those settings. Patient could not tolerate 17/13 in the hospital today and I will see if she tolerates 15/11. Will obtain official results in reading of polysomnogram when they are available. 09/08 Used BiPAP 15/11 with 30% last night and ABG 7.45/65/90. Continue use for now. Will need BiPAP set up for home on discharge. 09/09 Patient wore BiPAP 15/11 with 30% last night from 23:00 to 01:00 and 02:00 to 5:48 (about 6 hours). Spoke Dr Stephen regarding sleep study and since RONAL with chronic respiraory failure with elevated CO2 will order trilogy AVAPS-AE noninvasive ventilation. I have spoken with PFT lab to initiate this process. Subjective Date/time seen: Reason for consult: COPD and obstructive sleep apnea Chief complaint: Acute on Chronic Respiratory Failure, Pneumonia HPI Narrative: Patient is a 80-year-old female with a history of hypertension, type 2 diabetes, COPD with home O2 use at 2-3 L, no PFTs available, Chronic CO2 retention with a baseline blood gas on 08/12/2020 of 7.38/68/70 on 3 L nasal cannula,pulmonary hypertension with a estimated pulmonary pressure of 60 on echocardiogram from 06/07/2020 and mild centrilobular emphysema on her CT scan of the chest from 08/13/2020. The patient also has obstructive sleep apnea with a split night polysomnogram on 08/27/2020 with preliminary results demonstrating an apnea-hypopnea index of
[2020-09-09] MEDS: PREGABALIN (*CRX) 50 MG CAPSULE 200 MG PO ×2 (10:05→17:09)
[2020-09-09 10:37] LABS: Glucose Point of Care 188 (65-105)
[2020-09-09 12:23] LABS: Glucose Point of Care 157 (65-105)
--- NOTE | 2020-09-09 15:54 | PCRCNOTE ---
PER REQUEST BY DR MAZARIEGOS, WE HAVE ARRANGED WITH [facility] A NEW HOME TRILOGY NON INVASIVE VENTILATOR UNIT TO BE SET UP, IF APPROVAL IS OBTAINED, JUAN MANUEL 09/09/20, FOR TRIAL IN HOSPITAL PRIOR TO DISCHARGE. ALL PAPERWORK AND ORDER HAS BEEN FAXED. SPOKE TO CARE COORDINATION IN REGARDS TO THIS.
--- NOTE | 2020-09-09 17:07 | PM.IMPN ---
Progress Note: A&P Assessment and Plan (1) Acute and chronic respiratory failure with hypercapnia: Code(s): J96.22 - Acute and chronic respiratory failure with hypercapnia Status: Acute Assessment and Plan: 09/09/20 17:07 patient is 80-year-old female morbidly obese with chronic respiratory failure secondary to hypercapnia, COPD, diastolic dysfunction, patient has had several recent admissions with shortness of breath, and has been treated for diastolic dysfunction, patient had a sleep study and recently was diagnosed with sleep apnea, patient was seen by textile examiner suspect patient has a exacerbation of COPD recommended to continue updraft, Pulmicort and continues BiPAP, textile examiner himself spent over 30 minutes adjusting BiPAP mask for the patient and recommended the patient continue to wear the mask, patient also seen by fuel oil clerk and suspect most of her symptoms are secondary to exacerbation of COPD, hypoventilation, and sleep apnea, recommended continue to diurese the patient with a oral Lasix, will continue those recommendation will continue to monitor the patient, have PT OT evaluate the patient and further recommendation to follow. 09/08 patient wore BiPAP last night currently on nasal cannula is feeling much better not as short of breath seen by textile examiner recommending continue BiPAP, seen by fuel oil clerk continue low-dose Bumex for diastolic dysfunction, atrial fibrillation rate is controlled started the patient Eliquis 5 mg b.i.d. for high CHADsVAsc score, patient clinically symptoms are improving will have a PT OT evaluate the patient patient will benefit from acute rehab before going home. 09/09 last night patient wore BiPAP total of 6 hours, this morning states feeling better seen by textile examiner and has arranged for trilogy which be delivered later this evening so patient can try it tonight, plan is discharge the patient home tomorrow, seen by fuel oil clerk apparently patient was taking Bumex 40 mg q.day and has agreed to increase the Bumex this may help reducing the patient, will continue PT OT, insert discharge the patient home tomorrow with home health (2) Pneumonia: Code(s): J18.9 - Pneumonia, unspecified organism Status: Acute Assessment and Plan: Concern for community-acquired pneumonia patient is started on Rocephin azithromycin will continue to monitor (3) Insulin dependent type 2 diabetes mellitus: Code(s): E11.9 - Type 2 diabetes mellitus without complications; Z79.4 - terminal system operator (current) use of insulin Status: Acute Assessment and Plan: Will continue home regimen and monitor (4) Chronic kidney disease, stage 3: Code(s): N18.30 - Chronic kidney disease, stage 3 unspecified Status: Acute Assessment and Plan: Patient with acute on chronic kidney disease patient is being orally diuresed will continue to monitor kidney function (5) Chronic obstructive pulmonary disease: Code(s): J44.9 - Chronic obstructive pulmonary disease, unspecified Status: Acute Assessment and Plan: Plan is above with updraft and Pulmicort (6) Hypertension: Qualifiers: Hypertension type: unspecified Qualified Code(s): I10 - Essential (primary) hypertension Code(s): I10 - Essential (primary) hypertension Status: Chronic Assessment and Plan: Will continue home regimen and monitor (7) Hyperlipidemia: Qualifiers: Hyperlipidemia type: unspecified Qualified Code(s): E78.5 - Hyperlipidemia, unspecified Code(s): E78.5 - Hyperlipidemia, unspecified Status: Chronic Assessment and Plan: Will continue home regimen and monitor (8) Chronic anemia: Code(s): D64.9 - Anemia, unspecified Status: Chronic Assessment and Plan: Will do iron profile (9) Atrial fibrillation: Code(s): I48.91 - Unspecified atrial fibrillation Status: Acute Assessment and Plan: Rate is
[2020-09-09] MEDS: INSULIN ASPART (*BKC) 100 UNITS/ML SUB-Q (17:11)
[2020-09-09 18:28] LABS: Glucose Point of Care 207 (65-105)
[2020-09-09 20:30] LABS: Glucose Point of Care 99 (65-105)
[2020-09-10] VITALS (19 sets, daily range): BP systolic 99–147; BP diastolic 53–83; PULSE 62–109; RESP 16–22; TEMP 35.9–36.7; O2SAT 87–100
[2020-09-10 05:32] LABS: Blood Urea Nitrogen 39 mg/dL (7-17); Carbon Dioxide > 40 mmol/L (22-30); Chloride 93 mmol/L (98-107); Estimated CRCL calculation 35 ml/min; Estimated Glomerular Filt Rate 34; Glucose 111 mg/dL (65-105); Potassium 3.5 mmol/L (3.4-5.0); Sodium 140 mmol/L (137-145)
[2020-09-10] MEDS: TIZANIDINE HCL 4 MG TABLET PO ×3 (05:51→23:46)
[2020-09-10] MEDS: ACETAMINOPHEN 325 MG TABLET 650 MG PO ×3 (05:51→23:46)
[2020-09-10 08:30] LABS: Glucose Point of Care 126 (65-105)
--- NOTE | 2020-09-10 08:36 | PM.PNPUL ---
Progress Note: A&P Assessment and Plan (1) Chronic obstructive pulmonary disease: Code(s): J44.9 - Chronic obstructive pulmonary disease, unspecified Status: Acute Assessment and Plan: 09/07 Will continue continue treatment for COPD exacerbation with nebulized albuterol, Atrovent and budesonide. Patient was started on azithromycin and ceftriaxone for possible bibasilar pneumonia and will continue these medicines while awaiting culture results. I do not feel a need for systemic steroids at this time. Patient with chronic hypercarbia and her blood gas now on BiPAP is 7.40 / 70/71 on BiPAP 16/830% oxygen. Given patient's multiple admissions in the last 2 months will continue noninvasive ventilation at night. Patient states that she has a hard time wearing the BiPAP mask and I spent approximately 30 minutes adjusting the mask with respiratory therapy and adjusting the settings and the highest pressures that she could tolerate were an inspiratory pressure of 15 expiratory pressure of 11 inspiratory time of 1.2 and a rise of 3 which is the middle setting on our current machine. Her TV was 380-420 with minute ventilation 10.7. She wore this for about 20 minutes and said that it felt comfortable. I will check ABG in morning to assess ventilation. 09/08 Patient wore BiPAP 15/11 with 30% last night and ABG 7.45/65/90. She wore the mask but stated that it drioove her crazy. Did get some sleep with mask. No wheezes and breathing aboout same with sats 98% on 3 L NC. Continue albuterol 5 mg Q 6, atrovent neb 0.5 Q 6, budesonide .5 mg Q 12 for now. On day 3 azithro and ceftriaxone with negative cultures. Will check CXR inmorning. Will need BiPAP set up at home for discharge. 09/0909/09/20 Patient wore BiPAP 15/11 with 30% last night from 23:00 to 01:00 and 02:00 to 5:48 (about 6 hours). Regarding her respiratory failure we are treating COPD exacerbation (no wheezing now on bronchodilators and ICS), bronchitis (CXR today unchanged and I would finish 5 days total antibiotics), fluid overload (on demedex), and RONAL (on BiPAP). She is on anticoagulation for Afib. Once these conditions are treated she may still have SOB from obesity and deconditioning. I would consider acute rehab stay . Try to set up home noninvasive ventilation in hospit 09/10 Wore AVAPS-AE for 5 hours and then took off. Complains about some chest discomfort from air in too fast and also that machine breathing too quickly. Spoke with feed mill lab technician for [facility] and she will come change TV to 400, decrease rise, and attempt to increase PEEP. I will obtain ABG in morning prior to removal of machine and also obtain overnight pulse oximetry. DC antibiotics after today (day 5). Discharge on these medications: Symbicort 160/4.5 mcg 2 puffs BID Spireva 18 mcg 1 puff Q day Rescue albuterol 2 puffs Q 4 PRN Formal home O2 assessment to dertermine O2 needs with rest and exercise. Noninvasive ventilation with AVAPS-AE when sleeps with settings per DME. (2) RONAL (obstructive sleep apnea): Code(s): G47.33 - Obstructive sleep apnea (adult) (pediatric) Status: Acute Assessment and Plan: 09/07 Patient with split night polysomnogram on 09/27/2019 with preliminary results apnea-hypopnea index 28 0.8 they had titers her bilevel up to 17/13 but I do not have the official AHI on those settings. Patient could not tolerate 17/13 in the hospital today and I will see if she tolerates 15/11. Will obtain official results in reading of polysomnogram when they are available. 09/08 Used BiPAP 15/11 with 30% last night and ABG 7.45/65/90. Continue use for now. Will need BiPAP set up for home on discharge. 09/09 Patient wore BiPAP 15/11 with 30% last night from 23:00 to 01:00 and 02:00 to 5:48 (about 6 hours). Sp[address] Dr Stephen regarding sleep study and since RONAL with chronic respiraory failure with elevated CO2 will order trilogy AVAPS-AE noninvasive ventilation. I have spoken with PFT lab to i
[2020-09-10] MEDS: BUDESONIDE RESPULE NEB 0.5 MG/2 ML AMP INHALATION ×2 (09:39→22:29)
[2020-09-10] MEDS: ALBUTEROL SULFATE NEB 2.5 MG/0.5 ML INH 5 MG INHALATION ×3 (09:39→22:29)
[2020-09-10] MEDS: IPRATROPIUM BR 0.02% INH SOLN 0.5 MG/2.5 ML VIAL INHALATION ×3 (09:39→22:29)
--- NOTE | 2020-09-10 09:53 | PCRCNOTE ---
09/10/20 0200 nebulizer treatment not given. Window of time for administration has passed. See next scheduled administration.
[2020-09-10] MEDS: POTASSIUM CHLORIDE 20 MEQ TABLET 40 MEQ PO (10:01)
[2020-09-10] MEDS: PREGABALIN (*CRX) 50 MG CAPSULE 200 MG PO ×2 (10:02→17:15)
[2020-09-10] MEDS: ISOSORBIDE MONONITRATE 30 MG TAB.ER.24H PO (10:03)
[2020-09-10] MEDS: PANTOPRAZOLE 40 MG TABLET PO (10:03)
[2020-09-10] MEDS: calcitrioL 0.25 MCG CAPSULE PO (10:04)
[2020-09-10] MEDS: amLODIPine BESYLATE 5 MG TABLET PO (10:04)
[2020-09-10] MEDS: APIXABAN 5 MG TABLET PO ×2 (10:04→21:20)
[2020-09-10] MEDS: FERROUS SULFATE 324 MG TABLET PO ×2 (10:07→17:16)
[2020-09-10] MEDS: hydrALAZINE HCL 25 MG TABLET PO ×2 (10:07→17:16)
[2020-09-10] MEDS: ATORVASTATIN 40 MG TABLET 80 MG PO (10:08)
[2020-09-10] MEDS: COLCHICINE 0.6 MG TABLET PO ×2 (10:08→21:20)
[2020-09-10] MEDS: CLOPIDOGREL BISULFATE 75 MG TABLET PO (10:08)
[2020-09-10] MEDS: FENOFIBRATE NANOCRYSTALLIZED 145 MG TABLET PO (10:09)
[2020-09-10] MEDS: MAGNESIUM OXIDE 400 MG TABLET PO (10:10)
[2020-09-10] MEDS: EUCERIN CREAM 120 GM JAR 1 APPLIC TOPICAL (10:11)
[2020-09-10] MEDS: TORSEMIDE 20 MG TABLET 40 MG PO (10:11)
[2020-09-10] MEDS: LIDOCAINE 5% PATCH 1 PATCH TRANSDERM (10:12)
[2020-09-10] MEDS: INSULIN GLARGINE (*BKC) 100 UNITS/ML 10 UNITS SUB-Q (10:12)
--- NOTE | 2020-09-10 10:41 | PM.PNCARD ---
Progress Note: A&P Assessment and Plan (1) Acute and chronic respiratory failure with hypercapnia: Code(s): J96.22 - Acute and chronic respiratory failure with hypercapnia Status: Acute Assessment and Plan: Recurrent admissions with resp failure Multifactorial with obesity/hypoventilation, COPD, sleep apnea, pulmonary HTN and diastolic CHF Hopefully now with BiPAP arrangement at home will be able to preventy readmissions Continue Torsemide. Will increase dose to 40 mg which apparently is her actual home dose Creatinine stable ~ 1.4-1.5 . (2) Atrial fibrillation: Code(s): I48.91 - Unspecified atrial fibrillation Status: Acute Assessment and Plan: rate well controlled with no blocking agents SHe had recent PCI in May and has been on ASA and plavix. Started on Eliquis 5 mg BID this admission given elevated CHADsVAsc score Will d/c ASA given significantly high bleeding risk on triple therapy (3) Morbid obesity with BMI of 40.0-44.9, adult: Code(s): E66.01 - Morbid (severe) obesity due to excess calories; Z68.41 - Body mass index [BMI]40.0-44.9, adult Status: Acute (4) Chronic diastolic CHF (congestive heart failure): Code(s): I50.32 - Chronic diastolic (congestive) heart failure Status: Acute Assessment and Plan: plan as outlined above Subjective Date/time seen: 09/10/20 10:41 No overnight events. Feels about the same. Able to tolerate BiPAP. Review of Systems Review of Systems: All systems reviewed & are unremarkable except as noted in HPI and below Constitutional: Constitutional: Denies fatigue and Denies headache(s) Eyes: Eyes: Denies blurry vision ENT: Reports Normal hearing present and Denies headache(s) Cardiovascular: Cardiovascular: Denies chest pain, Denies diaphoresis, Denies pedal edema, Denies leg edema, Denies lightheadedness, Denies palpitations and Denies dyspnea Respiratory: Respiratory: Denies cough and Denies dyspnea Gastrointestinal: Gastrointestinal: Denies abdominal pain Musculoskeletal: Musculoskeletal: Denies back pain Neurologic: Reports Normal hearing present and Denies headache(s) Psychiatric: Psychiatric: Denies anxiety Endocrine: Endocrine: Denies fatigue and Denies palpitations Exam Narrative: Exam Narrative: Obese. In no acute distress. Normal S1,S2. Irregular rhythm but no tachy. decrease breath sounds b/l trace lower ext edema Const: General: no acute distress Eyes: Sclera: sclerae normal Neck: Neck: no JVD Carotids: no bruits Resp: Effort & Inspection: normal respiratory effort Auscultation: clear to auscultation bilaterally Cardio: Rate: regular rate and not tachycardic Rhythm: regular rhythm Heart sounds: no gallops, no murmurs and no rubs Skin: General skin exam: normal color Neuro: Cranial nerves: Yes Normal hearing present Speech: normal speech Extrem: General: normal to inspection and no edema Psych: Affect: normal affect Objective Data Vital Signs Vital Signs: Vital Signs - 24 hr 09/09/20 11:30 09/09/20 12:00 09/09/20 14:00 Temperature 36.4 C 36.4 C Pulse Rate 82 100 89 Respiratory Rate 20 20 Blood Pressure 125/64 125/64 Pulse Oximetry 98 99 09/09/20 14:01 09/09/20 14:10 09/09/20 16:00 Temperature Pulse Rate 80 84 78 Respiratory Rate 18 18 Blood Pressure Pulse Oximetry 99 09/09/20 16:30 09/09/20 18:00 09/09/20 20:00 Temperature 36.5 C 36.7 C Pulse Rate 75 73 84 Respiratory Rate 24 H 18 Blood Pressure 144/58 H 102/64 Pulse Oximetry 100 94 09/09/20 20:32 09/09/20 20:43 09/09/20 21:31 Temperature Pulse Rate 80 84 78 Respiratory Rate 18 18 Blood Pressure Pulse Oximetry 94 09/09/20 23:38 09/10/20 08:56 09/10/20 09:42 Temperature 36.5 C 35.9 C L Pulse Rate 78 62 79 Respiratory Rate 20 20 20 Blood Pressure 152/85 H 99/54 L Pulse Oximetry 100 100 96 09/10/20 09:56 Temperature Pulse Rate 82 Respir
[2020-09-10 12:29] LABS: Glucose Point of Care 138 (65-105)
--- NOTE | 2020-09-10 15:25 | PM.IMPN ---
Progress Note: A&P Assessment and Plan (1) Acute and chronic respiratory failure with hypercapnia: Code(s): J96.22 - Acute and chronic respiratory failure with hypercapnia Status: Acute Assessment and Plan: 09/10/20 15:25 patient is 80-year-old female morbidly obese with chronic respiratory failure secondary to hypercapnia, COPD, diastolic dysfunction, patient has had several recent admissions with shortness of breath, and has been treated for diastolic dysfunction, patient had a sleep study and recently was diagnosed with sleep apnea, patient was seen by tar pot man suspect patient has a exacerbation of COPD recommended to continue updraft, Pulmicort and continues BiPAP, tar pot man himself spent over 30 minutes adjusting BiPAP mask for the patient and recommended the patient continue to wear the mask, patient also seen by senior analysis specialist and suspect most of her symptoms are secondary to exacerbation of COPD, hypoventilation, and sleep apnea, recommended continue to diurese the patient with a oral Lasix, will continue those recommendation will continue to monitor the patient, have PT OT evaluate the patient and further recommendation to follow. 09/08 patient wore BiPAP last night currently on nasal cannula is feeling much better not as short of breath seen by tar pot man recommending continue BiPAP, seen by senior analysis specialist continue low-dose Bumex for diastolic dysfunction, atrial fibrillation rate is controlled started the patient Eliquis 5 mg b.i.d. for high CHADsVAsc score, patient clinically symptoms are improving will have a PT OT evaluate the patient patient will benefit from acute rehab before going home. 09/09 last night patient wore BiPAP total of 6 hours, this morning states feeling better seen by tar pot man and has arranged for trilogy which be delivered later this evening so patient can try it tonight, plan is discharge the patient home tomorrow, seen by senior analysis specialist apparently patient was taking Bumex 40 mg q.day and has agreed to increase the Bumex this may help reducing the patient, will continue PT OT, insert discharge the patient home tomorrow with home health 09/10 patient wore her trilogy most of the night, patient was seen by tar pot man this morning recommending to monitor patient 1 more day in the hospital and will repeat ABG while on the trilogy in the morning and further recommendation to follow, patient is seen by senior analysis specialist recommending to continue torsemide 40 mg q.day, patient states is feeling much better, able to participate in physical therapy was able to walk 50 ft, plan is to go home with a home health and physical therapy once okay with a tar pot man and senior analysis specialist possibly tomorrow (2) Pneumonia: Code(s): J18.9 - Pneumonia, unspecified organism Status: Acute Assessment and Plan: Concern for community-acquired pneumonia patient is started on Rocephin azithromycin will continue to monitor (3) Insulin dependent type 2 diabetes mellitus: Code(s): E11.9 - Type 2 diabetes mellitus without complications; Z79.4 - watermelon inspector (current) use of insulin Status: Acute Assessment and Plan: Will continue home regimen and monitor (4) Chronic kidney disease, stage 3: Code(s): N18.30 - Chronic kidney disease, stage 3 unspecified Status: Acute Assessment and Plan: Patient with acute on chronic kidney disease patient is being orally diuresed will continue to monitor kidney function (5) Chronic obstructive pulmonary disease: Code(s): J44.9 - Chronic obstructive pulmonary disease, unspecified Status: Acute Assessment and Plan: Plan is above with updraft and Pulmicort (6) Hypertension: Qualifiers: Hypertension type: unspecified Qualified Code(s): I10 - Essential (primary) hypertension Code(s): I10 - Essential (primary) hypertension Status: Chronic Assessment and Plan: Will continue home regimen and monitor (7
--- NOTE | 2020-09-10 16:01 | HOMEO2EVAL ---
Home Oxygen Evaluation RC: Home Oxygen (O2) Evaluation Start: 09/10/20 12:00 Freq: ONCE Status: Active Protocol: RPE Activity Type Activity Date Activity User E-Sign Co-Sign Detail Recorded Client Recorded Date Recorded By Document 09/10/20 15:30 ZACHARY [email or web address] 09/10/20 16:01 ZACHARY Document 09/10/20 15:32 ZACHARY [email or web address] 09/10/20 16:01 ZACHARY Document 09/10/20 15:34 ZACHARY [email or web address] 09/10/20 16:01 ZACHARY Document 09/10/20 15:40 ZACHARY [email or web address] 09/10/20 16:01 ZACHARY Document 09/10/20 15:55 ZACHARY [email or web address] 09/10/20 16:01 ZACHARY 09/10/20 09/10/20 09/10/20 15:30 15:32 15:34 Home O2 Evaluation Test Phase Resting Resting Resting Oxygen Delivery Room Air Nasal Cannula Nasal Cannula Oxygen Flow Rate (L/min) 1 2 Pulse Oximetry (90-100 %) 87 L 87 L 93 Pulse Rate (60-100 beats/min) Home Oxygen Evaluation Comments Treatment Charges O2 Evaluation 09/10/20 09/10/20 15:40 15:55 Home O2 Evaluation Test Phase Exercise Resting Oxygen Delivery Nasal Cannula Nasal Cannula Oxygen Flow Rate (L/min) 2 2 Pulse Oximetry (90-100 %) 89 L 94 Pulse Rate (60-100 beats/min) 109 H 89 Home Oxygen Evaluation Comments PT UP OUT OF BED, TO COMODE AND BACK INTO BED. Treatment Charges
--- NOTE | 2020-09-10 16:01 | PCRCNOTE ---
HOME O2 EVAL DONE. I ASSISTED PT UP OUT OF BED AND TO COMMODE, ASSISTED BACK TO BED. PT REQUIRES 2 LITERS O2 RESTING AND WITH EXERTION/ACTIVITY. PT HAS HOME O2 WITH [facility]. PT HAS ALL REQUIRED HOME OXYGEN EQUIPMENT. I INSTRUCTED PT ON HOW TO BLEED IN HER CURRENT HOME OXYGEN TO THE NEW TRILOGY UNIT JUST TO ENSURE SHE KNOWS HOW. NO NEW HOME O2 NEEDS OR ORDERS WRITTEN AT THIS TIME.
[2020-09-10 16:57] LABS: Glucose Point of Care 208 (65-105)
[2020-09-10] MEDS: INSULIN ASPART (*BKC) 100 UNITS/ML SUB-Q (17:17)
--- NOTE | 2020-09-10 18:42 | PC.NURSE ---
This patient, Chandni Vicente, was received from IMU on 09/10/20 at 1842. Patient/family oriented to unit policies and routines
--- NOTE | 2020-09-10 18:52 | PC.NURSE ---
183- pt transferred to 3rd medical- report given to Krista JUDGE- pt transferred to room 349 via w/c accompanied by staff- personal belongings and triology machine sent with pt. o2 on - no c/o pain at this time
[2020-09-10 23:52] LABS: Glucose Point of Care 117 (65-105)
[2020-09-11] VITALS (13 sets, daily range): BP systolic 131–153; BP diastolic 74–84; PULSE 65–77; RESP 16–18; TEMP 36.2–36.6; O2SAT 95–98
[2020-09-11 04:41] LABS: Alveolar/Arterial O2 Gradient 61.7 mmHg; Fractional Inspired Oxygen 28 %; HCO3 ABG 37.4 mEq/l (22.0-26.0); Oxygen Content ABG 12.4 %vol (16.0-22.0); Oxygen Saturation ABG 92.7 % (95.0-100.0); Oxyhemoglobin 91.3 % THb (90.0-100.0); PO2 ABG 66.3 mmHg (80.0-100.0); PO2 FiO2 Ratio Arterial Blood 2.37 %; Total Hemoglobin 9.6 g/dL (12.0-18.0); pH ABG 7.407 (7.350-7.450)
[2020-09-11 04:43] LABS: Device CPAP; PCO2 ABG 60.7 mmHg (35.0-45.0); Site Drawn RIGHT BRACHIAL
[2020-09-11] MEDS: ACETAMINOPHEN 325 MG TABLET 650 MG PO ×3 (06:11→21:15)
[2020-09-11 06:17] LABS: Blood Urea Nitrogen 33 mg/dL (7-17); Calcium 8.2 mg/dL (8.4-10.2); Carbon Dioxide > 40 mmol/L (22-30); Chloride 96 mmol/L (98-107); Estimated CRCL calculation 38 ml/min; Estimated Glomerular Filt Rate 36; Glucose 118 mg/dL (65-105); Potassium 3.5 mmol/L (3.4-5.0); Sodium 140 mmol/L (137-145)
[2020-09-11 07:56] LABS: Glucose Point of Care 123 (65-105)
[2020-09-11] MEDS: ALBUTEROL SULFATE NEB 2.5 MG/0.5 ML INH 5 MG INHALATION ×3 (08:01→20:09)
[2020-09-11] MEDS: BUDESONIDE RESPULE NEB 0.5 MG/2 ML AMP INHALATION ×2 (08:02→20:10)
[2020-09-11] MEDS: IPRATROPIUM BR 0.02% INH SOLN 0.5 MG/2.5 ML VIAL INHALATION ×3 (08:02→20:09)
[2020-09-11] MEDS: CLOPIDOGREL BISULFATE 75 MG TABLET PO (08:59)
[2020-09-11] MEDS: PANTOPRAZOLE 40 MG TABLET PO (08:59)
[2020-09-11] MEDS: APIXABAN 5 MG TABLET PO ×2 (08:59→20:43)
[2020-09-11] MEDS: FENOFIBRATE NANOCRYSTALLIZED 145 MG TABLET PO (08:59)
[2020-09-11] MEDS: FERROUS SULFATE 324 MG TABLET PO ×2 (08:59→17:16)
[2020-09-11] MEDS: MAGNESIUM OXIDE 400 MG TABLET PO (08:59)
[2020-09-11] MEDS: hydrALAZINE HCL 25 MG TABLET PO ×2 (08:59→17:16)
[2020-09-11] MEDS: ATORVASTATIN 40 MG TABLET 80 MG PO (08:59)
[2020-09-11] MEDS: ISOSORBIDE MONONITRATE 30 MG TAB.ER.24H PO (09:00)
[2020-09-11] MEDS: amLODIPine BESYLATE 5 MG TABLET PO (09:00)
[2020-09-11] MEDS: calcitrioL 0.25 MCG CAPSULE PO (09:00)
[2020-09-11] MEDS: TORSEMIDE 20 MG TABLET 40 MG PO (09:00)
[2020-09-11] MEDS: COLCHICINE 0.6 MG TABLET PO ×2 (09:00→20:43)
[2020-09-11] MEDS: LIDOCAINE 5% PATCH 1 PATCH TRANSDERM (09:01)
[2020-09-11] MEDS: TIZANIDINE HCL 4 MG TABLET PO ×3 (09:01→20:43)
[2020-09-11] MEDS: PREGABALIN (*CRX) 50 MG CAPSULE 200 MG PO ×2 (09:02→17:16)
[2020-09-11] MEDS: EUCERIN CREAM 120 GM JAR 1 APPLIC TOPICAL (09:02)
[2020-09-11] MEDS: INSULIN GLARGINE (*BKC) 100 UNITS/ML 10 UNITS SUB-Q (09:02)
--- NOTE | 2020-09-11 09:43 | PM.PNCARD ---
Progress Note: A&P Assessment and Plan (1) Acute and chronic respiratory failure with hypercapnia: Code(s): J96.22 - Acute and chronic respiratory failure with hypercapnia Status: Acute Assessment and Plan: Recurrent admissions with resp failure Multifactorial with obesity/hypoventilation, COPD, sleep apnea, pulmonary HTN and diastolic CHF She appears well compensated from CHF standpoint on current dose of toresemide 40 mg daily. Creatinine stable 1.4 Hopefully now with BiPAP arrangement at home will be able to prevent readmissions She is stable for discharge from cardiac standpoint. Follow up in 1 week . (2) Atrial fibrillation: Code(s): I48.91 - Unspecified atrial fibrillation Status: Acute Assessment and Plan: rate well controlled with no blocking agents Continue Eliquis (newly started this admission) and Plavix. ASA was d/arthur concerning high bleeding risk on tripple therapy (3) Morbid obesity with BMI of 40.0-44.9, adult: Code(s): E66.01 - Morbid (severe) obesity due to excess calories; Z68.41 - Body mass index [BMI]40.0-44.9, adult Status: Acute (4) Chronic diastolic CHF (congestive heart failure): Code(s): I50.32 - Chronic diastolic (congestive) heart failure Status: Acute Assessment and Plan: plan as outlined above Subjective Date/time seen: 09/11/20 09:43 No overnight events. Feels fair overall. Breathing better compared to admission. Review of Systems Review of Systems: All systems reviewed & are unremarkable except as noted in HPI and below Constitutional: Constitutional: Denies fatigue and Denies headache(s) Eyes: Eyes: Denies blurry vision ENT: Reports Normal hearing present and Denies headache(s) Cardiovascular: Cardiovascular: Denies chest pain, Denies diaphoresis, Denies pedal edema, Denies leg edema, Denies lightheadedness, Denies palpitations and Denies dyspnea Respiratory: Respiratory: Denies cough and Denies dyspnea Gastrointestinal: Gastrointestinal: Denies abdominal pain Musculoskeletal: Musculoskeletal: Denies back pain Neurologic: Reports Normal hearing present and Denies headache(s) Psychiatric: Psychiatric: Denies anxiety Endocrine: Endocrine: Denies fatigue and Denies palpitations Exam Narrative: Exam Narrative: Obese. In no acute distress. Normal S1,S2. Irregular rhythm but no tachy. decrease breath sounds b/l trace lower ext edema Const: General: no acute distress Eyes: Sclera: sclerae normal Neck: Neck: no JVD Carotids: no bruits Resp: Effort & Inspection: normal respiratory effort Auscultation: clear to auscultation bilaterally Cardio: Rate: regular rate and not tachycardic Rhythm: regular rhythm Heart sounds: no gallops, no murmurs and no rubs Skin: General skin exam: normal color Neuro: Cranial nerves: Yes Normal hearing present Speech: normal speech Extrem: General: normal to inspection and no edema Psych: Affect: normal affect Objective Data Vital Signs Vital Signs: Vital Signs - 24 hr 09/10/20 09:56 09/10/20 14:17 09/10/20 14:27 Temperature Pulse Rate 82 75 77 Respiratory Rate 20 20 20 Blood Pressure Pulse Oximetry 09/10/20 15:30 09/10/20 15:32 09/10/20 15:34 Temperature Pulse Rate Respiratory Rate Blood Pressure Pulse Oximetry 87 L 87 L 93 09/10/20 15:40 09/10/20 15:55 09/10/20 17:21 Temperature 36.1 C L Pulse Rate 109 H 89 79 Respiratory Rate 22 H Blood Pressure 147/83 H Pulse Oximetry 89 L 94 98 09/10/20 18:59 09/10/20 20:17 09/10/20 21:10 Temperature 36.7 C 36.2 C L Pulse Rate 82 91 Respiratory Rate 16 20 Blood Pressure 117/53 L 128/65 Pulse Oximetry 98 100 97 09/10/20 22:29 09/10/20 22:45 09/10/20 22:53 Temperature Pulse Rate 85 81 85 Respiratory Rate 20 20 Blood Pressure Pulse Oximetry 97 09/10/20 23:40 09/11/20 03:48 09/11/20 08:03 Temperature 36.3 C L Pulse Rate 72 77
--- NOTE | 2020-09-11 09:58 | PM.PNPUL ---
Progress Note: A&P Assessment and Plan (1) Chronic obstructive pulmonary disease: Code(s): J44.9 - Chronic obstructive pulmonary disease, unspecified Status: Acute Assessment and Plan: 09/07 Will continue continue treatment for COPD exacerbation with nebulized albuterol, Atrovent and budesonide. Patient was started on azithromycin and ceftriaxone for possible bibasilar pneumonia and will continue these medicines while awaiting culture results. I do not feel a need for systemic steroids at this time. Patient with chronic hypercarbia and her blood gas now on BiPAP is 7.40 / 70/71 on BiPAP 16/830% oxygen. Given patient's multiple admissions in the last 2 months will continue noninvasive ventilation at night. Patient states that she has a hard time wearing the BiPAP mask and I spent approximately 30 minutes adjusting the mask with respiratory therapy and adjusting the settings and the highest pressures that she could tolerate were an inspiratory pressure of 15 expiratory pressure of 11 inspiratory time of 1.2 and a rise of 3 which is the middle setting on our current machine. Her TV was 380-420 with minute ventilation 10.7. She wore this for about 20 minutes and said that it felt comfortable. I will check ABG in morning to assess ventilation. 09/08 Patient wore BiPAP 15/11 with 30% last night and ABG 7.45/65/90. She wore the mask but stated that it drioove her crazy. Did get some sleep with mask. No wheezes and breathing aboout same with sats 98% on 3 L NC. Continue albuterol 5 mg Q 6, atrovent neb 0.5 Q 6, budesonide .5 mg Q 12 for now. On day 3 azithro and ceftriaxone with negative cultures. Will check CXR inmorning. Will need BiPAP set up at home for discharge. 09/0909/09/20 Patient wore BiPAP 15/11 with 30% last night from 23:00 to 01:00 and 02:00 to 5:48 (about 6 hours). Regarding her respiratory failure we are treating COPD exacerbation (no wheezing now on bronchodilators and ICS), bronchitis (CXR today unchanged and I would finish 5 days total antibiotics), fluid overload (on demedex), and RONAL (on BiPAP). She is on anticoagulation for Afib. Once these conditions are treated she may still have SOB from obesity and deconditioning. I would consider acute rehab stay . Try to set up home noninvasive ventilation in hospit 09/10 Wore AVAPS-AE for 5 hours and then took off. Complains about some chest discomfort from air in too fast and also that machine breathing too quickly. Spoke with test lab technician for [facility] Patineit and she will come change TV to 400, decrease rise, and attempt to increase PEEP. I will obtain ABG in morning prior to removal of machine and also obtain overnight pulse oximetry. DC antibiotics after today (day 5). 09/01 Patient wore AVAPS AE for 4 hours 45 minutes and ABG at end was 7.41/61/66.3/sats 92.7. on 2 L bleed in. stated that it was worse than previous night. Pushed air too hard, machine firing quicker resulted in head ache and CP. Spoke with home health and will decrease TV to 350 and decrease rise again to 1. Overall bereathing is better than admission but still with DIAZ. Had overnight oximetry on 2 L bleed in and average saturation Was 85%. I's lowest saturation was 65% saturations less than 90% 204 minutes or 74% of the test. Saturations less than 85% was 59% of the test, saturations less than 80% was 49 minutes or 18% of the test. Home O2 assessment rest RA sats 87%, 1 L rest 87%, 2 L rest 93%. Exertion to commode on 2 L sats 89-94%. Patietn ready for DC homefrom pulmonary perspective. Discharge on these medications: Symbicort 160/4.5 mcg 2 puffs BID Spireva 18 mcg 1 puff Q day Rescue albuterol 2 puffs Q 4 PRN 2L NC with rest and exertion. Noninvasive ventilation with AVAPS-AE when sleeps with settings per DME (rate auto, TV 350, EPAP min 4, EPAP max 10, PSV min 4, PSV max 25, max pressure 25, AVAPS rate (rise) 1 (slowest), inspiratory time: auto, 4 L bleed in. Willneed repeat overnight oximetry as outpatient
--- NOTE | 2020-09-11 11:36 | PM.IMPN ---
Progress Note: A&P Assessment and Plan (1) Acute and chronic respiratory failure with hypercapnia: Code(s): J96.22 - Acute and chronic respiratory failure with hypercapnia Status: Acute Assessment and Plan: Patient is 80-year-old female morbidly obese with chronic respiratory failure secondary to hypercapnia, COPD, diastolic dysfunction, patient has had several recent admissions with shortness of breath, and has been treated for diastolic dysfunction, Patient is a gradually getting better. Patient shortness of breath is improving. Will continue current treatment. And start physical therapy. (2) Pneumonia: Code(s): J18.9 - Pneumonia, unspecified organism Status: Acute Assessment and Plan: Concern for community-acquired pneumonia patient is started on Rocephin azithromycin will continue to monitor (3) Insulin dependent type 2 diabetes mellitus: Code(s): E11.9 - Type 2 diabetes mellitus without complications; Z79.4 - bed bug exterminator (current) use of insulin Status: Acute Assessment and Plan: Will continue home regimen and monitor (4) Chronic kidney disease, stage 3: Code(s): N18.30 - Chronic kidney disease, stage 3 unspecified Status: Acute Assessment and Plan: Patient with acute on chronic kidney disease patient is being orally diuresed will continue to monitor kidney function (5) Chronic obstructive pulmonary disease: Code(s): J44.9 - Chronic obstructive pulmonary disease, unspecified Status: Acute Assessment and Plan: Plan is above with updraft and Pulmicort (6) Hypertension: Qualifiers: Hypertension type: unspecified Qualified Code(s): I10 - Essential (primary) hypertension Code(s): I10 - Essential (primary) hypertension Status: Chronic Assessment and Plan: Will continue home regimen and monitor (7) Hyperlipidemia: Qualifiers: Hyperlipidemia type: unspecified Qualified Code(s): E78.5 - Hyperlipidemia, unspecified Code(s): E78.5 - Hyperlipidemia, unspecified Status: Chronic Assessment and Plan: Will continue home regimen and monitor (8) Chronic anemia: Code(s): D64.9 - Anemia, unspecified Status: Chronic Assessment and Plan: Will do iron profile (9) Atrial fibrillation: Code(s): I48.91 - Unspecified atrial fibrillation Status: Acute Assessment and Plan: Rate is controlled patient on aspirin Plavix Additional Plan Will continue current treatment with the oxygen and BiPAP. Will start physical therapy. Subjective Date/time seen: 09/11/20 11:36 Interval history: Patient was seen during the morning rounds today. Patient was able to wear BiPAP. Patient has mild shortness of breath no chest pain. Mood stable. Review of Systems Review of Systems: All systems reviewed & are unremarkable except as noted in HPI and below Exam Narrative: Exam Narrative: Morbidly obese Patient is comfortable, NAD HEENT: eyes are clear and none icteric LUNGS: Bilateral fair entry with rales and rhonchi HEART: Irregularly irregular ABD: BS+, Soft and nontender Lower extremities: no edema SKIN: nonjaundiced Neuro: grossly intact. Objective Data Vital Signs Vital Signs: Vital Signs - 24 hr 09/10/20 14:17 09/10/20 14:27 09/10/20 15:30 Temperature Pulse Rate 75 77 Respiratory Rate 20 20 Blood Pressure Pulse Oximetry 87 L 09/10/20 15:32 09/10/20 15:34 09/10/20 15:40 Temperature Pulse Rate 109 H Respiratory Rate Blood Pressure Pulse Oximetry 87 L 93 89 L 09/10/20 15:55 09/10/20 17:21 09/10/20 18:59 Temperature 36.1 C L 36.7 C Pulse Rate 89 79 82 Respiratory Rate 22 H 16 Blood Pressure 147/83 H 117/53 L Pulse Oximetry 94 98 98 09/10/20 20:17 09/10/20 21:10 09/10/20 22:29 Temperature 36.2 C L Pulse Rate 91 85 Respiratory Rate 20 20 Blood Pressure 128/65 Pulse Oximetry 100 97
[2020-09-11 11:50] LABS: Glucose Point of Care 171 (65-105)
[2020-09-11 16:49] LABS: Glucose Point of Care 118 (65-105)
[2020-09-12] VITALS (8 sets, daily range): BP systolic 125–134; BP diastolic 74–78; PULSE 55–86; RESP 17–22; TEMP 36.2–36.6; O2SAT 91–97
--- NOTE | 2020-09-12 02:26 | PCRCNOTE ---
APNEA STUDY; NEB TX WAS OMITTED
[2020-09-12 08:15] LABS: Glucose Point of Care 111 (65-105)
[2020-09-12 08:17] LABS: Blood Urea Nitrogen 34 mg/dL (7-17); Calcium 8.5 mg/dL (8.4-10.2); Carbon Dioxide > 40 mmol/L (22-30); Chloride 96 mmol/L (98-107); Estimated CRCL calculation 43 ml/min; Estimated Glomerular Filt Rate 43; Glucose 104 mg/dL (65-105); Potassium 3.7 mmol/L (3.4-5.0); Sodium 140 mmol/L (137-145)
[2020-09-12] MEDS: FERROUS SULFATE 324 MG TABLET PO (08:54)
[2020-09-12] MEDS: amLODIPine BESYLATE 5 MG TABLET PO (08:55)
[2020-09-12] MEDS: calcitrioL 0.25 MCG CAPSULE PO (08:55)
[2020-09-12] MEDS: hydrALAZINE HCL 25 MG TABLET PO (08:55)
[2020-09-12] MEDS: COLCHICINE 0.6 MG TABLET PO (08:55)
[2020-09-12] MEDS: PREGABALIN (*CRX) 50 MG CAPSULE 200 MG PO (08:55)
[2020-09-12] MEDS: MAGNESIUM OXIDE 400 MG TABLET PO (08:55)
[2020-09-12] MEDS: PANTOPRAZOLE 40 MG TABLET PO (08:55)
[2020-09-12] MEDS: TORSEMIDE 20 MG TABLET 40 MG PO (08:55)
[2020-09-12] MEDS: LIDOCAINE 5% PATCH 1 PATCH TRANSDERM (08:56)
[2020-09-12] MEDS: ALBUTEROL SULFATE NEB 2.5 MG/0.5 ML INH 5 MG INHALATION ×2 (08:56→13:58)
[2020-09-12] MEDS: ISOSORBIDE MONONITRATE 30 MG TAB.ER.24H PO (08:56)
[2020-09-12] MEDS: IPRATROPIUM BR 0.02% INH SOLN 0.5 MG/2.5 ML VIAL INHALATION ×2 (08:56→13:59)
[2020-09-12] MEDS: ATORVASTATIN 40 MG TABLET 80 MG PO (08:56)
[2020-09-12] MEDS: CLOPIDOGREL BISULFATE 75 MG TABLET PO (08:56)
[2020-09-12] MEDS: FENOFIBRATE NANOCRYSTALLIZED 145 MG TABLET PO (08:56)
[2020-09-12] MEDS: APIXABAN 5 MG TABLET PO (08:56)
[2020-09-12] MEDS: INSULIN GLARGINE (*BKC) 100 UNITS/ML 10 UNITS SUB-Q (08:57)
[2020-09-12] MEDS: EUCERIN CREAM 120 GM JAR 1 APPLIC TOPICAL (08:57)
[2020-09-12] MEDS: BUDESONIDE RESPULE NEB 0.5 MG/2 ML AMP INHALATION (08:57)
--- NOTE | 2020-09-12 09:38 | PM.PNCARD ---
Progress Note: A&P Assessment and Plan (1) Acute and chronic respiratory failure with hypercapnia: Code(s): J96.22 - Acute and chronic respiratory failure with hypercapnia Status: Acute Assessment and Plan: Recurrent admissions with resp failure Multifactorial with obesity/hypoventilation, COPD, sleep apnea, pulmonary HTN and diastolic CHF She appears well compensated from CHF standpoint She is responding better to Torsemide 40 mg and her creatinine actually improving with that. I would discharge her on 40 mg daily of Torsemide Pulmonary on board. She will be going home with BiPAP She is stable for discharge from cardiac standpoint. Following changes were made on her cardiac meds this admission: Torsemide dose was increased to 40 mg daily ASA was d/arthur Eliquis 5 mg BID was started . (2) Atrial fibrillation: Code(s): I48.91 - Unspecified atrial fibrillation Status: Acute Assessment and Plan: rate well controlled with no blocking agents Continue Eliquis (newly started this admission) and Plavix. ASA was d/arthur concerning high bleeding risk on tripple therapy (3) Morbid obesity with BMI of 40.0-44.9, adult: Code(s): E66.01 - Morbid (severe) obesity due to excess calories; Z68.41 - Body mass index [BMI]40.0-44.9, adult Status: Acute (4) Chronic diastolic CHF (congestive heart failure): Code(s): I50.32 - Chronic diastolic (congestive) heart failure Status: Acute Assessment and Plan: plan as outlined above Subjective Date/time seen: 09/12/20 09:38 No overnight events. Feels good this am and volunteers no complaints Review of Systems Review of Systems: All systems reviewed & are unremarkable except as noted in HPI and below Constitutional: Constitutional: Denies fatigue and Denies headache(s) Eyes: Eyes: Denies blurry vision ENT: Reports Normal hearing present and Denies headache(s) Cardiovascular: Cardiovascular: Denies chest pain, Denies diaphoresis, Denies pedal edema, Denies leg edema, Denies lightheadedness, Denies palpitations and Denies dyspnea Respiratory: Respiratory: Denies cough and Denies dyspnea Gastrointestinal: Gastrointestinal: Denies abdominal pain Musculoskeletal: Musculoskeletal: Denies back pain Neurologic: Reports Normal hearing present and Denies headache(s) Psychiatric: Psychiatric: Denies anxiety Endocrine: Endocrine: Denies fatigue and Denies palpitations Exam Narrative: Exam Narrative: Obese. In no acute distress. Normal S1,S2. Irregular rhythm but no tachy. decrease breath sounds b/l trace lower ext edema Const: General: no acute distress Eyes: Sclera: sclerae normal Neck: Neck: no JVD Carotids: no bruits Resp: Effort & Inspection: normal respiratory effort Auscultation: clear to auscultation bilaterally Cardio: Rate: regular rate and not tachycardic Rhythm: regular rhythm Heart sounds: no gallops, no murmurs and no rubs Skin: General skin exam: normal color Neuro: Cranial nerves: Yes Normal hearing present Speech: normal speech Extrem: General: normal to inspection and no edema Psych: Affect: normal affect Objective Data Vital Signs Vital Signs: Vital Signs - 24 hr 09/11/20 14:31 09/11/20 15:10 09/11/20 15:15 Temperature 36.2 C L Pulse Rate 76 67 68 Respiratory Rate 16 18 Blood Pressure 140/75 Pulse Oximetry 98 97 09/11/20 15:19 09/11/20 20:10 09/11/20 20:11 Temperature Pulse Rate 72 76 Respiratory Rate 18 18 Blood Pressure Pulse Oximetry 98 09/11/20 20:40 09/11/20 22:00 09/11/20 23:00 Temperature 36.6 C Pulse Rate 65 70 Respiratory Rate 18 Blood Pressure 145/78 H Pulse Oximetry 98 97 97 09/12/20 00:50 09/12/20 02:13 09/12/20 04:12 Temperature 36.2 C L Pulse Rate 70 55 L 86 Respiratory Rate 17 Blood Pressure 125/74 Pulse Oximetry 97 91 93 09/12/20 09:00 09/12/20 09:01 09/12/20 09:04 Temperature Pulse
--- NOTE | 2020-09-12 11:05 | PM.PNPUL ---
Progress Note: A&P Assessment and Plan (1) Chronic obstructive pulmonary disease: Code(s): J44.9 - Chronic obstructive pulmonary disease, unspecified Status: Acute Assessment and Plan: 09/07 Will continue continue treatment for COPD exacerbation with nebulized albuterol, Atrovent and budesonide. Patient was started on azithromycin and ceftriaxone for possible bibasilar pneumonia and will continue these medicines while awaiting culture results. I do not feel a need for systemic steroids at this time. Patient with chronic hypercarbia and her blood gas now on BiPAP is 7.40 / 70/71 on BiPAP 16/830% oxygen. Given patient's multiple admissions in the last 2 months will continue noninvasive ventilation at night. Patient states that she has a hard time wearing the BiPAP mask and I spent approximately 30 minutes adjusting the mask with respiratory therapy and adjusting the settings and the highest pressures that she could tolerate were an inspiratory pressure of 15 expiratory pressure of 11 inspiratory time of 1.2 and a rise of 3 which is the middle setting on our current machine. Her TV was 380-420 with minute ventilation 10.7. She wore this for about 20 minutes and said that it felt comfortable. I will check ABG in morning to assess ventilation. 09/08 Patient wore BiPAP 15/11 with 30% last night and ABG 7.45/65/90. She wore the mask but stated that it drioove her crazy. Did get some sleep with mask. No wheezes and breathing aboout same with sats 98% on 3 L NC. Continue albuterol 5 mg Q 6, atrovent neb 0.5 Q 6, budesonide .5 mg Q 12 for now. On day 3 azithro and ceftriaxone with negative cultures. Will check CXR inmorning. Will need BiPAP set up at home for discharge. 09/0909/09/20 Patient wore BiPAP 15/11 with 30% last night from 23:00 to 01:00 and 02:00 to 5:48 (about 6 hours). Regarding her respiratory failure we are treating COPD exacerbation (no wheezing now on bronchodilators and ICS), bronchitis (CXR today unchanged and I would finish 5 days total antibiotics), fluid overload (on demedex), and RONAL (on BiPAP). She is on anticoagulation for Afib. Once these conditions are treated she may still have SOB from obesity and deconditioning. I would consider acute rehab stay . Try to set up home noninvasive ventilation in hospit 09/10 Wore AVAPS-AE for 5 hours and then took off. Complains about some chest discomfort from air in too fast and also that machine breathing too quickly. Spoke with health technician for [facility] Patineit and she will come change TV to 400, decrease rise, and attempt to increase PEEP. I will obtain ABG in morning prior to removal of machine and also obtain overnight pulse oximetry. DC antibiotics after today (day 5). 09/01 Patient wore AVAPS AE for 4 hours 45 minutes and ABG at end was 7.41/61/66.3/sats 92.7. on 2 L bleed in. stated that it was worse than previous night. Pushed air too hard, machine firing quicker resulted in head ache and CP. Spoke with home health and will decrease TV to 350 and decrease rise again to 1. Overall bereathing is better than admission but still with DIAZ. Had overnight oximetry on 2 L bleed in and average saturation Was 85%. I's lowest saturation was 65% saturations less than 90% 204 minutes or 74% of the test. Saturations less than 85% was 59% of the test, saturations less than 80% was 49 minutes or 18% of the test. Home O2 assessment rest RA sats 87%, 1 L rest 87%, 2 L rest 93%. Exertion to commode on 2 L sats 89-94%. Patietn ready for DC homefrom pulmonary perspective. 09/12 Patient wore AVAPS AE last night for about 7 hours on 4 liters bleed in with improved overnight oximetry with average 94%, low 75, sats <=88 at 9%. Per nurses she did sleep with machine on. She stioll complains about machine but it is better. She should be DC home on 5 L bleed in at night. Discharge on these medications: Symbicort 160/4.5 mcg 2 puffs BID Spireva 18 mcg 1 puff Q day Rescue albuterol 2 puffs Q 4 PRN 2L NC
[2020-09-12 11:46] LABS: Glucose Point of Care 172 (65-105)
--- NOTE | 2020-09-12 13:06 | PM.DS ---
DS: Admitting Diagnosis Admitting Diagnosis Admitting Diagnosis: SOB DS: Discharge Diagnosis Discharge Diagnosis (1) Acute and chronic respiratory failure with hypercapnia: Code(s): J96.22 - Acute and chronic respiratory failure with hypercapnia Status: Acute Assessment and Plan: Patient is 80-year-old female morbidly obese with chronic respiratory failure secondary to hypercapnia, COPD, diastolic dysfunction, patient has had several recent admissions with shortness of breath, and has been treated for diastolic dysfunction, Patient is a gradually getting better. (2) Pneumonia: Code(s): J18.9 - Pneumonia, unspecified organism Status: Acute Assessment and Plan: Concern for community-acquired pneumonia patient is started on Rocephin azithromycin, pulmonology on case see recommendations, pt to use 5 liters of oxygen in the day and bipap at night. Dc on Zithromax ora with pulmonology follow up. (3) Insulin dependent type 2 diabetes mellitus: Code(s): E11.9 - Type 2 diabetes mellitus without complications; Z79.4 - group home (current) use of insulin Status: Acute Assessment and Plan: Will continue home regimen and monitor (4) Chronic kidney disease, stage 3: Code(s): N18.30 - Chronic kidney disease, stage 3 unspecified Status: Acute Assessment and Plan: Patient with acute on chronic kidney disease patient is being orally diuresed will continue to monitor kidney function (5) Chronic obstructive pulmonary disease: Code(s): J44.9 - Chronic obstructive pulmonary disease, unspecified Status: Acute Assessment and Plan: Plan is above with updraft and Pulmicort (6) Hypertension: Qualifiers: Hypertension type: unspecified Qualified Code(s): I10 - Essential (primary) hypertension Code(s): I10 - Essential (primary) hypertension Status: Chronic Assessment and Plan: Will continue home regimen and monitor (7) Hyperlipidemia: Qualifiers: Hyperlipidemia type: unspecified Qualified Code(s): E78.5 - Hyperlipidemia, unspecified Code(s): E78.5 - Hyperlipidemia, unspecified Status: Chronic Assessment and Plan: Will continue home regimen and monitor (8) Chronic anemia: Code(s): D64.9 - Anemia, unspecified Status: Chronic Assessment and Plan: Will do iron profile (9) Atrial fibrillation: Code(s): I48.91 - Unspecified atrial fibrillation Status: Acute Assessment and Plan: Rate is controlled patient on aspirin Plavix DS: Summary Hospital Course Hospital Course: Patient is a 80-year-old female with a history of hypertension, type 2 diabetes, COPD with home O2 use at 2-3 L, no PFTs available, Chronic CO2 retention with a baseline blood gas of 7.38/68/70 on 3 L nasal cannula,pulmonary heart per tension with a estimated pulmonary pressure of 60 on echocardiogram from 06/07/2020 and mild centrilobular emphysema on her CT scan of the chest from 08/13/2020. The patient also has obstructive sleep apnea with a split night polysomnogram on 08/27/2020 with preliminary results demonstrating an apnea-hypopnea index of 28.8. Patient had difficulty titrating her BiPAP settings in the laboratory but it appears that her best pressures were 17/13 with 2 L bleed in. Patient also has a history of Ca cord coronary artery disease status post non ST elevation [place] on 06/07/2020 with a mid LAD stent on placed on 06/13/2020. Echocardiogram demonstrates a left ventricular systolic function is normal with an EF 55-60 grade 2 diastolic dysfunction moderate aortic valve stenosis with a mean gradient of 18 and a valve area of 1.6 sq cm. Of note the patient has been admitted to the hospital 4 times in the last 2 months for acute on chronic respiratory failure requiring BiPAP and treatment for COPD exacerbation and fluid overload. As per pulmonology team pt known to there service. Huy
[2020-09-12] MEDS: FUROSEMIDE INJ 40 MG/4 ML VIAL 20 MG IV PUSH (13:07)
[2020-09-12] MEDS: ACETAMINOPHEN 325 MG TABLET 650 MG PO (15:20)
[2020-09-12] MEDS: TIZANIDINE HCL 4 MG TABLET PO (15:20)
[2020-09-12 17:30] LABS: Glucose Point of Care 133 (65-105)
== END 2020-09-12 18:10 | disposition home health service (06) | DRG 193 ==
LOC: ANHED 10:53 → ANHIMU 13:58 → ANH3MED 09-10 18:44
PROVIDERS: Family Medicine; Internal Medicine Pulmonary Disease; Physician Assistant; Admitting Provider Family Medicine; Emergency Provider Emergency Medicine; PCP Internal Medicine; Visit Provider Family Medicine
DX: J18.9 Pneumonia, unspecified organism (principal); J96.22 Acute and chronic respiratory failure with hypercapnia; I13.0 Hypertensive heart and chronic kidney disease with heart failure and stage 1 through stage 4 chronic kidney disease, or unspecified chronic kidney disease; I50.32 Chronic diastolic (congestive) heart failure; J44.0 Chronic obstructive pulmonary disease with (acute) lower respiratory infection; Z68.41 Body mass index [BMI] 40.0-44.9, adult; I27.20 Pulmonary hypertension, unspecified; Z20.822 Contact with and (suspected) exposure to COVID-19; Z86.16 Personal history of COVID-19; E66.01 Morbid (severe) obesity due to excess calories; G47.33 Obstructive sleep apnea (adult) (pediatric); Z99.81 Dependence on supplemental oxygen; K21.9 Gastro-esophageal reflux disease without esophagitis; E11.42 Type 2 diabetes mellitus with diabetic polyneuropathy; E11.22 Type 2 diabetes mellitus with diabetic chronic kidney disease; N18.30 Chronic kidney disease, stage 3 unspecified; I25.10 Atherosclerotic heart disease of native coronary artery without angina pectoris; I44.7 Left bundle-branch block, unspecified; E78.5 Hyperlipidemia, unspecified; D64.9 Anemia, unspecified; I48.91 Unspecified atrial fibrillation; I25.2 Old myocardial infarction; Z79.4 Long term (current) use of insulin; Z79.82 Long term (current) use of aspirin; Z79.899 Other long term (current) drug therapy; Z87.891 Personal history of nicotine dependence; Z95.5 Presence of coronary angioplasty implant and graft
CPT/HCPCS: 36415; 36600; 71045; 80048; 80053; 81003; 82375; 82805; 83050; 83605; 83735; 83880; 84484; 85025; 85027; 85380; 85610; 85730; 86140; 87040; 93005; 93970; 94002; 94003; 94618; 94640; 94660; 94762; 97110; 97161; 97165; 97530; 97535; 99291; A9270; C9803; J0456; J0696; J1650; J1815; J1940; U0003

== ENCOUNTER → 2020-11-11 11:14 | Outpatient (CLI) | payer MEDICARE, SELFPAY ==
--- NOTE | ~2020-11-11 | XR_ITS ---
EXAMINATION: XR shoulder LT min 2V DATE: 11/11/2020 11:38 INDICATION: Left shoulder pain. TECHNIQUE: 4 views of left shoulder were obtained. COMPARISON: Left shoulder radiographs 06/07/2020 FINDINGS: Bone alignment is normal. No fracture. There is severe osteoarthritis of glenohumeral joint and acromioclavicular joint. There is a loose body in the glenohumeral joint. IMPRESSION: 1. Polyarticular osteoarthritis. 2. Left glenohumeral joint loose body. Reviewed, dictated and finalized at location A.
== END ==
PROVIDERS: Visit Provider Nurse Practitioner Family
DX: M19.012 Primary osteoarthritis, left shoulder (principal); M24.012 Loose body in left shoulder
CPT/HCPCS: 73030

== ENCOUNTER 2020-11-16 21:12 | Inpatient (IN) | payer MEDICARE, SELFPAY ==
--- NOTE | ~2020-11-16 | XR_ITS ---
EXAMINATION: XR chest 1V portable EXAM DATE: 11/18/2020 18:27 INDICATION: Lung infiltrates. TECHNIQUE: Portable AP frontal chest x-ray was obtained. Comparison is made to prior examination from 11/16/2020. FINDINGS: There is cardiomegaly and pulmonary vascular congestion. There is indistinct reticulation w ith a bibasal predominance which may indicate pulmonary edema. This has demonstrated some improvement compared to prior study. There is small to moderate left pleural effusion. There is no pneumothorax suspected. There are bony degenerative changes. IMPRESSION: 1. Findings consistent with CHF exacerbation, some interval improvement. 2. Small to moderate left pleural effusion. Reviewed, dictated and finalized at location A.
--- NOTE | ~2020-11-16 | XR_ITS ---
EXAMINATION: XR chest 1V portable DATE: 12/03/2020 05:28 INDICATION: Acute respiratory failure. TECHNIQUE: A single frontal view of the chest was obtained. COMPARISON: Chest single view 12/02/2020, chest CT 11/18/2020 FINDINGS: There are small pleural effusions. There are airspace opacities in the mid and lower lung z ones with a basilar predominance. No pneumothorax. Calcified right hilar lymph nodes are consistent w ith old granulomatous disease. Cardiomegaly is noted. A left internal jugular central venous catheter is seen with tip in the superior vena cava. The endotracheal tube tip is 3.3 cm above the maryjane. Th e nasogastric tube tip is beyond the inferior margin of the radiograph, but at least to the stomach. IMPRESSION: 1. Stable airspace opacities in the mid and lower lung zones with a basilar predominance, consistent with atelectasis versus pneumonia. 2. Stable small pleural effusions. 3. Cardiomegaly. Reviewed, dictated and finalized at location A. IMPRESSION: 1. Stable airspace opacities in the mid and lower lung zones with a basilar pre dominance, consistent with atelectasis versus pneumonia. 2. Stable small pleural effusions. 3. Cardiomegaly.
--- NOTE | ~2020-11-16 | XR_ITS ---
EXAMINATION: XR chest 1V portable DATE: 12/04/2020 05:20 INDICATION: Acute respiratory failure. TECHNIQUE: A single frontal view of the chest was obtained. COMPARISON: Chest single view 12/03/2020 FINDINGS: The patient is rotated to her right. There are small pleural effusions. There are airspace opacities in the mid and lower lung zones with a basilar predominance. No pneumothorax. Cardiomegaly is noted. Calcified hilar and mediastinal lymph nodes are consistent with old granulomatous disease. The endotracheal tube tip is 3.1 cm above the maryjane. The nasogastric tube is not well-visualized bey ond the distal esophagus. IMPRESSION: 1. Stable airspace opacities in the mid and lower lung zones with a basilar predominance, consistent with atelectasis versus pneumonia. 2. Stable small pleural effusions. 3. Cardiomegaly. Reviewed, dictated and finalized at location A. IMPRESSION: 1. Stable airspace opacities in the mid and lower lung zones with a basilar pre dominance, consistent with atelectasis versus pneumonia. 2. Stable small pleural effusions. 3. Cardiomegaly.
--- NOTE | ~2020-11-16 | XR_ITS ---
XR chest 1V portable 11/21/2020 08:54 Indication: Shortness of breath Procedure: AP portable chest Comparison: Comparison to multiple prior studies sequentially, with oldest reviewed study dated 09/09. Findings: Cardiomegaly with interstitial edema. Small left pleural effusion. No pneumothorax. There i s atherosclerosis. Impression: 1: Cardiomegaly with interstitial edema. 2: Small left pleural effusion. Reviewed, dictated and finalized at location A. Impression: 1: Cardiomegaly with interstitial edema. 2: Small left pleural effusion.
--- NOTE | ~2020-11-16 | CT_ITS ---
EXAMINATION: CT chest high resolution [facility] EXAM DATE: 11/18/2020 18:56 INDICATION: Recurrent respiratory failure TECHNIQUE: Spiral CT of the chest without contrast. HRCT. Axial, coronal and sagittal images were re viewed. Coronal maximum intensity pixel images of chest reviewed. The dose-length product (DLP) for this examination was 758.91 mGy-cm. The exposure was tailored according to patient size (auto mA ex posure control), and iterative reconstruction (ASIR) was used as additional dose reduction technique. Comparison is made to prior examination from 08/12/2020. FINDINGS: Moderate amount of bibasilar predominant reticulonodular opacities appearance most consist ent with acute infection. There is multi segmental left lower lobe and segmental right lower lobe ate lectasis. There is cardiomegaly. The main, central pulmonary arteries are dilated which can indicate elevated pulmonary arterial pressure, pulmonary arterial hypertension. There are small bilateral pleural effusions. Tracheobronchial tree is patent. There is no mediasti nal, hilar or axillary lymphadenopathy. There is no pneumothorax. There are dense coronary arteri es, could be severe coronary arterial sclerosis and/or coronary artery stent(s), which are difficult to distinguish due to cardiac motion on this non-gated exam. Correlate with cardiac history and consi bryson cardiology consult if not recently evaluated. There is moderate sliding gastroesophageal hiatal h ernia. There is thoracic spondylosis without osteoblastic or osteolytic lesions identified. IMPRESSION: 1. Moderate amount of bibasilar predominant reticulonodular airspace disease appearance more consist ent with infection than edema. 2. Multisegmental left basilar, segmental right basilar atelectasis. 3. Cardiomegaly. Pulmonary arterial hypertension. 4. Small bilateral pleural effusions. 5. Moderate hiatal hernia. Reviewed, dictated and finalized at location A. IMPRESSION: 1. Moderate amount of bibasilar predominant reticulonodular airspace disease a ppearance more consistent with infection than edema. 2. Multisegmental left basilar, segmental right basilar atelectasis. 3. Cardiomegaly. Pulmonary arterial hypertension. 4. Small bilateral pleural effusions. 5. Moderate hiatal hernia.
--- NOTE | ~2020-11-16 | XR_ITS ---
XR chest 2V 11/22/2020 10:56 Indication: CHF. Procedure: AP and lateral views of the chest Comparison: Comparison to multiple prior studies sequentially, with oldest reviewed study dated 09/12. Findings: Cardiomegaly. Left basilar airspace disease. Small left pleural effusion. No pneumothorax. No edema. No acute osseous abnormality. Moderate osteoarthritis of the shoulders. Impression: 1: Left basilar infiltrates may represent atelectasis or pneumonia. 2: Small left pleural effusion. 3: Cardiomegaly. Reviewed, dictated and finalized at location B. Impression: 1: Left basilar infiltrates may represent atelectasis or pneumonia. 2: Small left pleural effusion. 3: Cardiomegaly.
--- NOTE | ~2020-11-16 | XR_ITS ---
XR chest 2V 11/25/2020 10:14 Indication: CHF. Procedure: AP and lateral views of the chest Comparison: Comparison to multiple prior studies sequentially, with oldest reviewed study dated 11/16. Findings: Left basilar infiltrates. Small left effusion. Cardiomegaly. No pneumothorax. No edema. No acute osseous abnormality. There are degenerative changes of the shoulders. Impression: 1: Left basilar airspace disease, atelectasis versus pneumonia. 2: Small left pleural effusion. Reviewed, dictated and finalized at location B. Impression: 1: Left basilar airspace disease, atelectasis versus pneumonia. 2: Small left pleural effusion.
--- NOTE | ~2020-11-16 | XR_ITS ---
XR chest 1V portable DATE: 12/01/2020 05:34 INDICATION: Acute respiratory failure TECHNIQUE: Portable AP chest on 12/01/2020 at 0520 hours COMPARISON: 11/30/2020 portable AP chest at 0129 hours FINDINGS: ET tube in satisfactory position 4 cm above maryjane. NG tube in stomach. Left internal jugular central venous catheter overlies proximal superior vena cava. There is cardiomegaly. There is aortic calcification, ectasia and unfolding. Pulmonary vascular congestion and redistribution, bilateral relatively central and lower lung zone in filtrates and bilateral pleural effusions, consistent with congestive heart failure and pulmonary drew ma. IMPRESSION: Congestive heart failure and pulmonary edema, relatively stable since 11/30/2020 Reviewed, dictated and finalized at location A. IMPRESSION: Congestive heart failure and pulmonary edema, relatively stable sin ce 11/30/2020
--- NOTE | ~2020-11-16 | XR_ITS ---
XR chest 1V portable DATE: 11/16/2020 22:13 INDICATION: Cough. Congestive heart failure. Atrial fibrillation. Hypertension. TECHNIQUE: Portable AP chest on 11/16/2020 at 2215 hours COMPARISON: 09/12/2020 portable AP chest at 1028 hours FINDINGS: Cardiomegaly. Aortic calcification and unfolding. There is pulmonary vascular congestion and redistribution, prominence of the minor fissure. There are bilateral predominantly central and lower lung zone infiltrates. The findings are consistent with co ngestive heart failure and pulmonary edema. Pneumonia and aspiration pneumonitis are not excluded. Bilateral glenohumeral osteoarthritis. IMPRESSION: Congestive heart failure and pulmonary edema Pneumonia and aspiration are not excluded. Reviewed, dictated and finalized at location A.
--- NOTE | ~2020-11-16 | XR_ITS ---
EXAMINATION: XR chest 1V portable DATE: 12/06/2020 05:39 INDICATION: Respiratory failure. TECHNIQUE: A single frontal view of the chest was obtained. COMPARISON: Chest single view 12/05/2020, chest CT 11/18/2020 FINDINGS: There are small pleural effusions. There are airspace opacities in the mid and lower lung z ones with a basilar predominance. No pneumothorax. Cardiomegaly is noted. The endotracheal tube tip i s 5.4 cm above the maryjane. The nasogastric tube tip is beyond the inferior margin of the radiograph, but at least to the stomach. A left internal jugular central venous catheter is seen with tip in the superior vena cava. IMPRESSION: 1. Stable airspace opacities in the mid and lower lung zones with a basilar predominance, consistent with atelectasis versus pneumonia. 2. Stable small pleural effusions. 3. Cardiomegaly. Reviewed, dictated and finalized at location A. IMPRESSION: 1. Stable airspace opacities in the mid and lower lung zones with a basilar pre dominance, consistent with atelectasis versus pneumonia. 2. Stable small pleural effusions. 3. Cardiomegaly.
--- NOTE | ~2020-11-16 | XR_ITS ---
EXAMINATION: XR chest 1V portable DATE: 12/05/2020 05:31 INDICATION: Acute respiratory failure. TECHNIQUE: A single frontal view of the chest was obtained. COMPARISON: Chest single view 12/04/2020 FINDINGS: The patient is rotated to her right. There are small pleural effusions. There are airspace opacities in the mid and lower lung zones with a basilar predominance. No pneumothorax. Cardiomegaly is noted. The endotracheal tube tip is 2.9 cm above the maryjane. Nasogastric tube is not well-visualiz ed beyond the distal esophagus. A left internal jugular central venous catheter is seen with tip in t he superior vena cava. IMPRESSION: 1. Stable airspace opacities in the mid and lower lung zones with a basilar predominance, consistent with atelectasis versus pneumonia. 2. Stable small pleural effusions. 3. Cardiomegaly. Reviewed, dictated and finalized at location A. IMPRESSION: 1. Stable airspace opacities in the mid and lower lung zones with a basilar pre dominance, consistent with atelectasis versus pneumonia. 2. Stable small pleural effusions. 3. Cardiomegaly.
--- NOTE | ~2020-11-16 | XR_ITS ---
XR abdomen NG/feed tube insert DATE: 11/30/2020 00:02 INDICATION: Orogastric tube insertion TECHNIQUE: Portable AP examination on 11/30/2020 at 0002 hours COMPARISON: 08/16/2020 obstructive series 04/18/2018 CT chest abdomen pelvis FINDINGS: The proximal port of the orogastric tube is situated in the lower chest, possibly within a hiatal hernia demonstrated on 04/18/2018 CT chest abdomen pelvis examination. The distal tip of the tu be is still within the lower thorax. ET tube in satisfactory position. Cardiac megaly. Aortic calcification. Mild pleural effusions. Bilateral lower lung infiltrate and/or atelectasis. IMPRESSION: Orogastric tube in lower thorax within hiatal hernia Reviewed, dictated and finalized at Location A. Reviewed, dictated and finalized at location A.
--- NOTE | ~2020-11-16 | XR_ITS ---
EXAMINATION: XR chest 1V portable DATE: 12/02/2020 05:45 INDICATION: Acute respiratory failure. TECHNIQUE: A single frontal view of the chest was obtained. COMPARISON: Chest single view 12/01/2020, chest CT 11/18/2020 FINDINGS: There are airspace opacities in the mid and lower lung zones with a basilar predominance. T here are small pleural effusions. No pneumothorax. Cardiomegaly is noted. Calcified right hilar lymph nodes are consistent with old granulomatous disease. The endotracheal tube tip is 2.0 cm above the c prerna. The nasogastric tube tip is beyond the inferior margin of the radiograph, but at least to the stomach. IMPRESSION: 1. Stable airspace opacities in the mid and lower lung zones with a basilar predominance, consistent with atelectasis versus pneumonia. 2. Stable small pleural effusions. 3. Cardiomegaly. Reviewed, dictated and finalized at location A. IMPRESSION: 1. Stable airspace opacities in the mid and lower lung zones with a basilar pre dominance, consistent with atelectasis versus pneumonia. 2. Stable small pleural effusions. 3. Cardiomegaly.
--- NOTE | ~2020-11-16 | CT_ITS ---
EXAMINATION: CT brain wo con DATE: 11/30/2020 15:53 INDICATION: Seizure. TECHNIQUE: Computed tomography (CT) of the head was performed without intravenous contrast. The mA wa s adjusted according to patient size. Iterative reconstruction technique was employed. The dose-lengt h product was 681.00 mGy-cm. COMPARISON: Head CT 06/06/2020 FINDINGS: There is an old lacunar infarct in right caudate nucleus. There are scattered areas of low attenuation in the cerebral white matter, which is within normal limits for the patient's age. There is no intracranial hemorrhage, acute infarction, or abnormal intracranial mass lesion. The ventricles are normal in size. There are likely changes of right ocular lens replacement surgery. There is mild mucosal thickening in the ethmoid sinuses. There is a small right mastoid effusion. IMPRESSION: 1. 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 Reviewed, dictated and finalized at location A.
--- NOTE | ~2020-11-16 | XR_ITS ---
XR chest ET placement DATE: 11/30/2020 00:03 INDICATION: Intubation TECHNIQUE: Portable AP chest on 11/29/2020 at 2358 hours COMPARISON: 11/25/2020 AP chest FINDINGS: ET tube placement in satisfactory position, tip 4.4 cm above maryjane. An NG tube is noted in the very proximal stomach. No central lines are noted. Cardiomegaly. Pulmonary vascular congestion and redistribution. There are bilateral perihilar and low er lung zone infiltrates suggesting pulmonary edema, in addition to mild bilateral pleural effusions. No pneumothorax. Aortic calcification. Diffuse osteopenia. Degenerative changes of the thoracic and lumbar spine. IMPRESSION: ET tube in satisfactory position NG tube in very proximal stomach Congestive heart failure, pulmonary edema, mild bilateral pleural effusions, increased since Cardiomegaly Aortic atherosclerosis Reviewed, dictated and finalized at Location A. Reviewed, dictated and finalized at location A. IMPRESSION: ET tube in satisfactory position NG tube in very proximal stomach Congestive heart failure, pulmonary edema, mild bilateral pleural effusions, in creased since 11/25/2020 Cardiomegaly Aortic atherosclerosis
--- NOTE | ~2020-11-16 | XR_ITS ---
XR chest port-a-cath/central DATE: 11/30/2020 01:30 INDICATION: Left internal jugular central venous line placement TECHNIQUE: Portable AP chest on 11/30/2020 at 0129 hours COMPARISON: 11/29/2020 portable AP chest at 2358 hours FINDINGS: Interval placement of left endometrial central venous catheter, the tip overlying the proxi mal superior vena cava. No evidence of pneumothorax. ET tube in satisfactory position 2.4 cm above maryjane. The nasogastric tube extends at least into the distal esophagus, the distal tip not definitively localized. Cardiomegaly. Pulmonary vascular congestion and redistribution. There are bilateral central and lower lung zone infiltrates and bilateral pleural effusions suggesting congestive heart failure, pulmonary edema. Diffuse osteopenia. IMPRESSION: Left internal jugular central venous catheter placement into proximal superior vena cava; no evidence of pneumothorax Congestive heart failure; pulmonary edema, increased in severity since 11/29/2020 Reviewed, dictated and finalized at [facility] Reviewed, dictated and finalized at [facility]. IMPRESSION: Left internal jugular central venous catheter placement into proxim al superior vena cava; no evidence of pneumothorax Congestive heart failure; pulmonary edema, increased in severity since 11/29/2020
[2020-11-16 21:15] VITALS: BP 135/82; PULSE 102; RESP 27; TEMP 37.2; O2SAT 97
--- NOTE | 2020-11-16 21:29 | ECG_ITS ---
Measurements Intervals [place] Rate: 105 P: [place]: 0 QRS: 38 QRSD: 142 T: -42 QT: 366 QTc: 484 Interpretive Statements ATRIAL FIBRILLATION WITH RAPID VENTRICULAR RESPONSE VENTRICULAR PREMATURE COMPLEX LEFT BUNDLE BRANCH BLOCK BASELINE ARTIFACT- I, II, III, AVR, AVL, AVF, V5-V6 ABNORMAL ECG Electronically Signed On 11-17-2020 7:33:04 CDT by Rick Zapata D.O.
[2020-11-16] MEDS: ALBUTEROL SULFATE NEB 2.5 MG/0.5 ML INH 5 MG INHALATION (21:33)
[2020-11-16] MEDS: IPRATROPIUM BR 0.02% INH SOLN 0.5 MG/2.5 ML VIAL INHALATION (21:34)
--- NOTE | 2020-11-16 21:41 | ED.SOB ---
HPI - SOB/Dyspnea General Chief Complaint: Shortness of Breath/Dyspnea Stated Complaint: SOB/ N/V Time Seen by Provider: 11/16/20 21:23 Source: RN notes reviewed History of Present Illness HPI Narrative: Patient presents to emergency department from home for shortness of breath. Patient states that over the past several days she has been progressively more short of breath worse with activity states she is normally on 2 L nasal cannula chronically and has had up that to 4 L nasal cannula today patient states that she does have a history of COPD as well as heart failure history of A. fib for which she is on anticoagulation she denies any fevers or chills chest pain abdominal pain nausea vomiting or any other symptoms Related Data Home Medications Medication Instructions Recorded Confirmed amlodipine 5 mg PO DAILY 06/07/20 09/06/20 atorvastatin 80 mg PO DAILY 06/07/20 09/06/20 biotin 1 mg PO DAILY 06/07/20 09/06/20 calcitriol 0.25 mcg PO DAILY 06/07/20 09/06/20 cranberry extract 250 mg PO DAILY 06/07/20 09/06/20 fenofibrate nanocrystallized 145 mg PO DAILY 06/07/20 09/06/20 isosorbide mononitrate 30 mg PO DAILY 06/07/20 09/06/20 pantoprazole 40 mg PO DAILY 06/07/20 09/06/20 pregabalin 200 mg PO BID 06/07/20 09/06/20 tizanidine 4 mg PO BID PRN 06/19/20 09/06/20 Allergies Allergy/AdvReac Type Severity Reaction Status Date / Time amitriptyline Allergy Unknown Unknown Verified 09/06/20 16:26 chlordiazepoxide Allergy Unknown Unknown Verified 09/06/20 16:26 Review of Systems Review of Systems: Narrative: Gen.: Denies fevers or chills Eyes: Denies eye pain or visual change ENT: Denies congestion Respiratory: See HPI CV: Denies chest pain or palpitations GI: Denies abdominal pain nausea, emesis or diarrhea Musculoskeletal: Denies back pain or muscle pain Neuro: Denies numbness, tingling, weakness or focal weakness Skin: Denies rash Except as documented, all other systems reviewed and negative PMFSH Past Medical History Medical History Anxiety Atrial fibrillation Chads Vasc 2 is 7 although she is not on long-term anticoagulation. Chronic anemia Chronic kidney disease, stage 3 Baseline creatinine is between 1.3 and 1.50. Chronic obstructive pulmonary disease Chronic pain Chronic respiratory failure with hypoxia On 2 to 3 L nasal cannula. Congestive heart failure Echocardiogram on 06/07/2020 showed grade 2 diastolic dysfunction, ejection fraction of 55 to 60%, moderate aortic stenosis, and moderate pulmonary hypertension without wall motion abnormalities. Coronary artery disease Status post angioplasty status stent to the mid LAD on 06/13/[address] Rodarte. COVID-19 (~05/2020) Depression Fibromyalgia Gastritis (~08/19/20) Gastroesophageal reflux disease Gout Hyperlipidemia Hypertension Insulin dependent type 2 diabetes mellitus Complicated by diabetic peripheral neuropathy. Hemoglobin A1c was 5.2% in July 2020. Large hiatal hernia Noted on EGD in July [address] Chaudhari. Left bundle branch block Obstructive sleep apnea Pneumonia Recurrent urinary tract infection Sinus bradycardia Surgical History Surgical History History of coronary artery stent placement (~06/13/20) Family History Family History Mother Acute myocardial infarction Other Diabetes mellitus Hypertension Social History Social History Social History: Surrogate decision maker: Theron Vicente, spouse. Code status: Full code. Smoking packs per day: 1 Smoking cigarettes per day: 20.0 Years smoked: 40 Smoking pack-years: 40.00 Smoking status: Former smoker Tobacco type: cigarettes Second hand tobacco smoke exposure: Yes Alcohol intake: never Drinks per week: 1 Substance use:
[2020-11-16 21:53] VITALS: PULSE 105; RESP 34
[2020-11-16 21:55] LABS: Alveolar/Arterial O2 Gradient 127.9 mmHg; Base Excess ABG 8.4 mEq/l (+/-2.0); Fractional Inspired Oxygen 36 %; Oxygen Content ABG 14.8 %vol (16.0-22.0); Oxygen Saturation ABG 95.8 % (95.0-100.0); Oxyhemoglobin 93.4 % THb (90.0-100.0); PCO2 ABG 46.1 mmHg (35.0-45.0); PO2 ABG 75.3 mmHg (80.0-100.0); PO2 FiO2 Ratio Arterial Blood 2.09 %; Total Hemoglobin 11.2 g/dL (12.0-18.0); pH ABG 7.473 (7.350-7.450)
[2020-11-16 21:56] LABS: Device NASAL CANNULA; Site Drawn RIGHT BRACHIAL
[2020-11-16 22:03] VITALS: PULSE 104; RESP 24
[2020-11-16 22:24] LABS: Basophils Percent Auto 0.2 % (0.2-1.2); Eosinophils Percent Auto 0.1 % (0-4.4); Hematocrit 34.8 % (37.0-47.0); Hemoglobin 10.5 g/dL (12.0-15.0); Immature Granulocyte Absolute 0.03 K/mm3 (0.00-0.031); Immature Granulocyte Percent A 0.3 % (0-0.5); Lymphocytes Absolute Auto 0.16 K/mm3 (0.9-3.2); Lymphocytes Percent Auto 1.5 % (18.3-44.2); Mean Corpuscular HGB Conc 30.2 g/dl (32-36); Mean Corpuscular Hemoglobin 28.9 pg (26-34); Mean Corpuscular Volume 95.9 fl (80-100); Mean Platelet Volume 11.8 fl (7.4-10.4); Monocytes Absolute Auto 0.7 K/mm3 (0.1-0.6); Monocytes Percent Auto 6.4 % (2.6-8.5); Neutrophils Absolute Auto 9.9 K/mm3 (1.3-6.7); Neutrophils Percent Auto 91.5 % (45.5-73.1); Platelet Count Result 185 k/mm3 (150-375); Red Blood Count 3.63 M/mm3 (4.2-5.4); Red Cell Distribution Width 15.5 % (11.5-14.5); White Blood Count 10.8 K/mm3 (4.5-10.0)
[2020-11-16 22:25] VITALS: O2SAT 96
[2020-11-16 22:35] LABS: Prothrombin Time 13.8 Seconds (11.1-14.7)
[2020-11-16 22:36] LABS: Lactic Acid Reflex 1.4 mmol/L (0.7-2.1); Partial Thromboplastin Time 29.5 SECONDS (22.3-36.8)
[2020-11-16 22:41] LABS: Alanine Aminotransferase 18 U/L (4-35); Albumin Level 3.6 g/dL (3.5-5.1); Alkaline Phosphatase 43 U/L (38-126); Aspartate Amino Transferase 37 U/L (14-36); Bilirubin,Total 0.3 mg/dL (0.2-1.3); Blood Urea Nitrogen 51 mg/dL (7-17); Carbon Dioxide > 40 mmol/L (22-30); Chloride 98 mmol/L (98-107); Estimated CRCL calculation 37 ml/min; Estimated Glomerular Filt Rate 36; Glucose 88 mg/dL (65-105); Sodium 144 mmol/L (137-145)
[2020-11-16 22:47] LABS: Troponin I < 0.012 ng/mL (0.000-0.034)
[2020-11-16] MEDS: POTASSIUM CHLORIDE 20 MEQ TABLET 40 MEQ PO (22:58)
[2020-11-16] MEDS: FUROSEMIDE INJ 40 MG/4 ML VIAL IV PUSH (22:59)
[2020-11-16] MEDS: methylPREDNISolone SOD SUCC 125 MG VIAL IV PUSH (22:59)
[2020-11-16 23:03] LABS: Add Urine Microscopic? YES; Appearance Urine Cloudy (Clear); Bilirubin Urine Negative (Negative); Blood Urine Negative (Negative); Color Urine Yellow (Yellow); Glucose Urine UA Negative (Negative); Ketones Urine Negative (Negative); Leukocyte Esterase Ur 1+ LEU/UL (Negative); Mucus Urine Rare /lpf; Nitrate Urine Negative (Negative); Protein Urine Negative (Negative); RBC Urine 0-2 /hpf (0-2); Specific Grav Ur 1.013 (1.001-1.035); Squamous Epithelial Cell Urine Few /hpf (Few); Urobilinogen Urine Negative mg/dL (<2.0); WBC Urine 21-30 /hpf
[2020-11-16 23:05] VITALS: BP 113/82; PULSE 101; RESP 26; O2SAT 96
[2020-11-16 23:13] LABS: NT Pro B Type Natriuretic Pept 3300 PG/ML (5-100)
[2020-11-17] VITALS (23 sets, daily range): BP systolic 104–147; BP diastolic 51–77; PULSE 71–108; RESP 16–24; TEMP 36.1–36.8; O2SAT 91–100; BMI 40.8
[2020-11-17] MEDS: ACETAMINOPHEN 500 MG TABLET 1000 MG PO (01:05)
--- NOTE | 2020-11-17 01:42 | ADMGEN ---
This patient, Chandni Vicente, was admitted to 2 Medical Room [facility]-01 @[id number] Patient/family oriented to hospital policies and general routines including ID bracelet, bed and alarms, visiting hours, pain management, procedures, bathroom and other care routines, personal items, smoking policy, room service/diet, and visiting hours. Information on how to activate the Rapid Response Team has been discussed. Patient/Family are encouraged to report perceived risks to care and to ask questions if they do not understand what they are told or what they should do.
[2020-11-17] MEDS: ALBUTEROL SULFATE NEB 2.5 MG/0.5 ML INH 5 MG INHALATION ×4 (02:27→20:38)
[2020-11-17] MEDS: IPRATROPIUM BR 0.02% INH SOLN 0.5 MG/2.5 ML VIAL INHALATION ×4 (02:27→20:38)
[2020-11-17] MEDS: TIZANIDINE HCL 4 MG TABLET PO ×4 (04:49→20:16)
[2020-11-17] MEDS: methylPREDNISolone SOD SUCC 125 MG VIAL 60 MG IV PUSH ×3 (06:20→20:16)
--- NOTE | 2020-11-17 08:15 | PM.IMHP ---
H&P: HPI History of Present Illness Date/Time: 11/17/20 08:15 This is a 80-year-old female with past medical history significant for diastolic heart failure, obstructive sleep apnea on CPAP at night, chronic obstructive pulmonary disease, dyslipidemia ,gout, hypertension ,chronic kidney disease, coronary artery peripheral neuropathy insulin-dependent diabetes mellitus, chronic anemia. Patient has had multiple hospitalization last 1 was on August. Patient comes in through the emergency room due to worsening shortness of breath mainly exertion but also present at rest, chest congestion he states that ?there was a rattle in in my chest also retrosternal chest pain with cough no sputum production, no fevers,no chills no rigors, no leg swelling, patient is usually on 2 L by nasal cannula during the daytime and increase it to 4 L. she denies any nausea vomiting abdominal pain or diarrhea, no pain or burning with urination, no joint or muscular pain. States that this has been going on only for the last 3 days. In emergency preliminary workup was significant for a chest x-ray with infiltrates diffuse and bilateral. Chief Complaint: SOB Review of Systems Review of Systems: Narrative: Patient presented to emergency from home due to worsening shortness of breath for the last 3 days or so feeling congestion in her chest unable to bring anything up. Constitutional: Comments: low stamina Cardiovascular: Cardiovascular: Reports chest pain and Reports dyspnea Comments: Shortness of breath, chest discomfort, Respiratory: Respiratory: Reports cough Comments: No sputum production Gastrointestinal: Comments: No nausea no vomiting no diarrhea no constipation no abdominal pain Genitourinary: Comments: No pain or burning with urination Musculoskeletal: Comments: No muscle or joint pain Integumentary/Breasts: Comments: No rash Neurologic: Comments: No sensorimotor deficit [facility] Past Medical History Medical History Anxiety Atrial fibrillation Chads Vasc 2 is 7 although she is not on long-term anticoagulation. Chronic anemia Chronic kidney disease, stage 3 Baseline creatinine is between 1.3 and 1.50. Chronic obstructive pulmonary disease Chronic pain Chronic respiratory failure with hypoxia On 2 to 3 L nasal cannula. Congestive heart failure Echocardiogram on 06/07/2020 showed grade 2 diastolic dysfunction, ejection fraction of 55 to 60%, moderate aortic stenosis, and moderate pulmonary hypertension without wall motion abnormalities. Coronary artery disease Status post angioplasty status stent to the mid LAD on 06/13/[address] Rodarte. COVID-19 (~05/2020) Depression Fibromyalgia Gastritis (~08/19/20) Gastroesophageal reflux disease Gout Hyperlipidemia Hypertension Insulin dependent type 2 diabetes mellitus Complicated by diabetic peripheral neuropathy. Hemoglobin A1c was 5.2% in July 2020. Large hiatal hernia Noted on EGD in July [address] Chaudhari. Left bundle branch block Obstructive sleep apnea Pneumonia Recurrent urinary tract infection Sinus bradycardia Surgical History Surgical History History of coronary artery stent placement (~06/13/20) Family History Family History Mother Acute myocardial infarction Other Diabetes mellitus Hypertension Social History Social History Social History: Surrogate decision maker: Theron Vicente, spouse. Code status: Full code. Smoking packs per day: 1 Smoking cigarettes per day: 20.0 Years smoked: 40 Smoking pack-years: 40.00 Smoking status: Former smoker Second hand tobacco smoke exposure: Yes Alcohol intake: never Drinks per week: 1 Substance use: never Substance use type: does not use Additional living arrange
[2020-11-17] MEDS: ATORVASTATIN 40 MG TABLET 80 MG PO (09:46)
[2020-11-17] MEDS: calcitrioL 0.25 MCG CAPSULE PO (09:46)
[2020-11-17] MEDS: MAGNESIUM OXIDE 400 MG TABLET PO (09:46)
[2020-11-17] MEDS: FERROUS SULFATE 324 MG TABLET PO ×2 (09:46→17:34)
[2020-11-17] MEDS: COLCHICINE 0.6 MG TABLET PO ×2 (09:46→17:33)
[2020-11-17] MEDS: APIXABAN 5 MG TABLET PO ×2 (09:47→20:16)
[2020-11-17] MEDS: amLODIPine BESYLATE 5 MG TABLET PO (09:47)
[2020-11-17] MEDS: FENOFIBRATE NANOCRYSTALLIZED 145 MG TABLET PO (09:47)
[2020-11-17] MEDS: ISOSORBIDE MONONITRATE 30 MG TAB.ER.24H PO (09:47)
[2020-11-17] MEDS: PANTOPRAZOLE 40 MG TABLET PO (09:48)
[2020-11-17] MEDS: CLOPIDOGREL BISULFATE 75 MG TABLET PO (09:48)
[2020-11-17] MEDS: hydrALAZINE HCL 25 MG TABLET PO ×2 (09:48→17:34)
[2020-11-17] MEDS: FUROSEMIDE INJ 40 MG/4 ML VIAL IV PUSH ×2 (09:49→17:34)
[2020-11-17] MEDS: EUCERIN CREAM 120 GM JAR 1 APPLIC TOPICAL (09:50)
[2020-11-17] MEDS: LIDOCAINE 5% PATCH 1 PATCH TRANSDERM (09:50)
[2020-11-17] MEDS: INSULIN GLARGINE (*BKC) 100 UNITS/ML 10 UNITS SUB-Q (09:52)
[2020-11-17] MEDS: PREGABALIN (*CRX) 50 MG CAPSULE 200 MG PO ×2 (09:52→17:37)
[2020-11-17] MEDS: INSULIN ASPART (*BKC) 100 UNITS/ML SUB-Q (11:50)
[2020-11-17 12:31] LABS: Glucose Point of Care 189 (65-105)
[2020-11-17 12:31] LABS: Glucose Point of Care 295 (65-105)
[2020-11-17] MEDS: ACETAMINOPHEN 325 MG TABLET 650 MG PO (17:33)
[2020-11-17 18:02] LABS: Glucose Point of Care 178 (65-105)
[2020-11-17 21:12] LABS: Glucose Point of Care 212 (65-105)
[2020-11-18] VITALS (19 sets, daily range): BP systolic 110–130; BP diastolic 60–72; PULSE 63–105; RESP 18–22; TEMP 36.2–36.4; O2SAT 94–98
--- NOTE | 2020-11-18 | ECHO_ITS ---
Patient Info Name: Chandni Vicente Age: 80 years : 1940 Gender: Female Ht: 64 in Wt: 238 lbs BSA: 2.26 m2 HR: 90 bpm BP: 104 / 64 mmHg Technical Quality: Good Exam Date: 11/18/2020 1:55 PM Exam Location: [facility] Patient Status: Inpatient Admit Date: 11/18/2020 Staff Ordering Physician: Karoline Easton MD [place]: [place], [place], [place] Attending Provider: Alicia Plummer DO Referring Physician: Rustam MCCLENDON; Exam Type: CA echo dop color flow w con Study Info Indications I50.9 - Heart failure, unspecified Complete two-dimensional, color flow and Doppler transthoracic echocardiogram is performed. Strain analysis performed. Summary 1. Complete two-dimensional, color flow and Doppler transthoracic echocardiogram is performed. 2. Borderline LV enlargement, mild LVH; moderate LV systolic dysfunction, calculated LVEF 35%. Diastolic dysfunction is present. Mild biatrial enlargement. Mild mitral valve thickening, mild MR. Aortic valve sclerosis, mild aortic stenosis. Trivial TR, mild pulmonary hypertension, RVSP 45 mmHg. Left Ventricle Left ventricular chamber dimension is mildly enlarged. There is mildly increased left ventricular wall thickness. The left ventricular diastolic function is abnormal. Right Ventricle Right ventricular chamber dimension is normal. Right ventricular systolic function is normal. Left Atria Left atrial chamber dimension is mildly enlarged. Right Atria Right atrial chamber dimension is mildly enlarged. Aortic Valve There is mild aortic valve sclerosis. Pulmonic Valve The pulmonic valve is not well visualized. There is trace pulmonic regurgitation. Mitral Valve The mitral valve has thickened leaflets. There is mild mitral valve regurgitation. Tricuspid Valve Mild pulmonary hypertension, estimated pulmonary arterial systolic pressure is 45 mmHg. Pericardium/Pleural The pericardium appears normal. Inferior Vena Cava Dilated inferior vena cava with no collapse upon inspiration consistent with Empty right atrial pressure, 15 mmHg. Aorta The aortic root size at the sinus of Valsalva is normal. Left Ventricular Outflow Tract Name Value Normal LVOT 2D LVOT Diameter 1.89 cm LVOT Doppler LVOT Peak Velocity 105.97 cm/s LVOT Peak Gradient 3 mmHg LVOT Mean Gradient 1 mmHg LVOT VTI 20.75 cm LVOT VTI/AV VTI Ratio 0.46 LVOT Stroke Volume 58.21 ml LVOT CO 4.64 l/min LVOT CI 2.05 L/min/m2 Mitral Valve Name Value Normal MV Doppler MV Decel [place] 536.20 cm/s2 MV PHT 0 s MV Area (PHT)
[2020-11-18] MEDS: ALBUTEROL SULFATE NEB 2.5 MG/0.5 ML INH 5 MG INHALATION ×4 (02:25→18:26)
[2020-11-18] MEDS: IPRATROPIUM BR 0.02% INH SOLN 0.5 MG/2.5 ML VIAL INHALATION ×4 (02:25→18:26)
[2020-11-18] MEDS: ACETAMINOPHEN 325 MG TABLET 650 MG PO ×4 (02:39→23:06)
[2020-11-18] MEDS: TIZANIDINE HCL 4 MG TABLET PO ×3 (02:40→20:41)
[2020-11-18 05:38] LABS: Basophils Percent Auto 0.1 % (0.2-1.2); Eosinophils Percent Auto 0.4 % (0-4.4); Hematocrit 29.4 % (37.0-47.0); Hemoglobin 8.7 g/dL (12.0-15.0); Immature Granulocyte Absolute 0.07 K/mm3 (0.00-0.031); Immature Granulocyte Percent A 0.7 % (0-0.5); Lymphocytes Absolute Auto 0.15 K/mm3 (0.9-3.2); Lymphocytes Percent Auto 1.5 % (18.3-44.2); Mean Corpuscular HGB Conc 29.6 g/dl (32-36); Mean Corpuscular Hemoglobin 28.9 pg (26-34); Mean Corpuscular Volume 97.7 fl (80-100); Mean Platelet Volume 12.5 fl (7.4-10.4); Monocytes Absolute Auto 0.4 K/mm3 (0.1-0.6); Monocytes Percent Auto 4.2 % (2.6-8.5); Neutrophils Percent Auto 93.1 % (45.5-73.1); Nucleated Red Blood Cells Perc 0.2 % (0.0-0.2); Platelet Count Result 196 k/mm3 (150-375); Red Blood Count 3.01 M/mm3 (4.2-5.4); Red Cell Distribution Width 15.8 % (11.5-14.5); White Blood Count 9.7 K/mm3 (4.5-10.0)
[2020-11-18 05:58] LABS: Blood Urea Nitrogen 59 mg/dL (7-17); Calcium 8.5 mg/dL (8.4-10.2); Carbon Dioxide > 40 mmol/L (22-30); Chloride 97 mmol/L (98-107); Estimated CRCL calculation 36 ml/min; Estimated Glomerular Filt Rate 36; Glucose 225 mg/dL (65-105); Potassium 3.7 mmol/L (3.4-5.0); Sodium 142 mmol/L (137-145)
[2020-11-18 06:15] LABS: Hypochromasia 1+ (NORMAL); Platelet Estimate Adequate (Adequate)
[2020-11-18 06:16] LABS: Ovalocytes 2+ (NORMAL)
[2020-11-18] MEDS: methylPREDNISolone SOD SUCC 125 MG VIAL 60 MG IV PUSH ×3 (06:17→21:51)
[2020-11-18 07:42] LABS: Glucose Point of Care 202 (65-105)
[2020-11-18] MEDS: INSULIN GLARGINE (*BKC) 100 UNITS/ML 10 UNITS SUB-Q (08:17)
[2020-11-18] MEDS: INSULIN ASPART (*BKC) 100 UNITS/ML SUB-Q ×2 (08:17→12:03)
[2020-11-18] MEDS: BIOTIN 1 MG 1 EACH XX (08:22)
[2020-11-18] MEDS: ISOSORBIDE MONONITRATE 30 MG TAB.ER.24H PO (09:42)
[2020-11-18] MEDS: FERROUS SULFATE 324 MG TABLET PO ×2 (09:42→17:19)
[2020-11-18] MEDS: ATORVASTATIN 40 MG TABLET 80 MG PO (09:42)
[2020-11-18] MEDS: hydrALAZINE HCL 25 MG TABLET PO ×2 (09:42→17:20)
[2020-11-18] MEDS: COLCHICINE 0.6 MG TABLET PO ×2 (09:42→17:19)
[2020-11-18] MEDS: APIXABAN 5 MG TABLET PO ×2 (09:42→20:41)
[2020-11-18] MEDS: PREGABALIN (*CRX) 50 MG CAPSULE 200 MG PO ×2 (09:42→17:19)
[2020-11-18] MEDS: FENOFIBRATE NANOCRYSTALLIZED 145 MG TABLET PO (09:42)
[2020-11-18] MEDS: PANTOPRAZOLE 40 MG TABLET PO (09:42)
[2020-11-18] MEDS: FUROSEMIDE INJ 40 MG/4 ML VIAL IV PUSH ×2 (09:43→17:20)
[2020-11-18] MEDS: LIDOCAINE 5% PATCH 1 PATCH TRANSDERM (09:43)
[2020-11-18] MEDS: CLOPIDOGREL BISULFATE 75 MG TABLET PO (09:43)
[2020-11-18] MEDS: amLODIPine BESYLATE 5 MG TABLET PO (09:43)
[2020-11-18] MEDS: calcitrioL 0.25 MCG CAPSULE PO (09:43)
[2020-11-18] MEDS: EUCERIN CREAM 120 GM JAR 1 APPLIC TOPICAL (09:47)
[2020-11-18] MEDS: MAGNESIUM OXIDE 400 MG TABLET PO (09:47)
[2020-11-18 12:03] LABS: Glucose Point of Care 280 (65-105)
[2020-11-18 12:05] LABS: Hemoglobin A1C 4.8 % (<5.7)
[2020-11-18] MEDS: PERFLUTREN LIPID MICROSPHERES 1.5 ML VIAL DILUTED TO 10 ML TOTAL VOLUME IV PUSH (14:10)
--- NOTE | 2020-11-18 16:50 | PM.IMPN ---
Progress Note: A&P Assessment and Plan (1) Acute on chronic diastolic CHF (congestive heart failure): Code(s): I50.33 - Acute on chronic diastolic (congestive) heart failure Status: Acute Assessment and Plan: patient has been diuresing well she has a negative balance however states that she still feels short of breath (2) Multilobar lung infiltrate: Code(s): R91.8 - Other nonspecific abnormal finding of lung field Status: Acute Assessment and Plan: on Rocephin and Zithromax supportive care will repeat chest x-ray today to assess for persistence of infiltrates (3) Chronic respiratory failure with hypoxia: Code(s): J96.11 - Chronic respiratory failure with hypoxia Status: Acute Assessment and Plan: was requiring 4 L of supplemental nasal oxygen usually on 2 L at home now back to 2 L I have requested a pulmonology consult (4) Insulin dependent diabetes mellitus: Status: Acute Assessment and Plan: Accu-Cheks AC and HS continue lack insulin sliding scale as needed 1800 calorie carb restricted diet (5) RONAL (obstructive sleep apnea): Code(s): G47.33 - Obstructive sleep apnea (adult) (pediatric) Status: Acute Assessment and Plan: continue CPAP at nighttime (6) Chronic kidney disease, stage 3: Code(s): N18.30 - Chronic kidney disease, stage 3 unspecified Status: Acute Assessment and Plan: patient's BUN and creatinine up at her baseline continue to monitor (7) Hypertension: Qualifiers: Hypertension type: unspecified Qualified Code(s): I10 - Essential (primary) hypertension Code(s): I10 - Essential (primary) hypertension Status: Chronic Assessment and Plan: stable continue hydralazine continue amlodipine patient also on torsemide and isosorbide mononitrate Subjective Date/time seen: 11/18/20 16:50 I still feel discomfort in my chest Review of Systems Review of Systems: Narrative: patient presented to the emergency room due to chest congestion All systems reviewed & are unremarkable except as noted in HPI and below ( HPI) Exam Narrative: Exam Narrative: chronically ill-looking laying in bed in no acute distress Const: General: comfortable, no acute distress, well developed, alert and awake Nutritional Appearance: overweight Orientation/consciousness: patient oriented x3 HENMT: Head: normal to inspection, normocephalic and atraumatic Ears: hearing grossly normal bilaterally Face and sinus: normal facial exam Eyes: General: appearance normal, both eyes and all related structures Pupils: Equal, round and reactive pupils present EOM: EOMs intact bilaterally Neck: Neck: full ROM, no lymphadenopathy and no JVD Thyroid: thyroid normal Lymphatic: no lymphadenopathy noted Resp: Effort & Inspection: normal respiratory effort and able to speak in complete sentences Auscultation: clear to auscultation bilaterally Cardio: Jugular venous distension: no JVD Rate: regular rate Rhythm: regular rhythm Heart sounds: S1 normal heart sound present and S2 normal heart sound present GI: GI Palp: Yes Soft to palpation and Yes No hepatosplenomegaly present : General: Yes deferred Skin: Rashes: no rashes Wounds: no wounds Neuro: General: patient oriented x3 and CN's II-XI intact bilaterally Cranial nerves: Yes CN's II-XII intact bilaterally and Yes Equal, round and reactive pupils present Cognition (Neuro): normal cognition Speech: normal speech Gait exam (Neuro): Normal gait present Motor exam (neuro): 5/5 motor strength present throughout Extrem: General: normal to inspection, full ROM, no joint enlargement and no pedal edema Objective Data Vital Signs Vital Signs: Vital Signs - 24 hr 11/17/20 20:00 11/17/20 20:38 11/17/20 20:48 Temperature Pulse Rate 79 74 79 Respiratory Rate 18 18 18 Blood Pressure Pulse Oximetry 91 94 10/29
[2020-11-18 16:53] LABS: Glucose Point of Care 192 (65-105)
[2020-11-18 20:32] LABS: Glucose Point of Care 359 (65-105)
[2020-11-19] VITALS (19 sets, daily range): BP systolic 130–158; BP diastolic 71–86; PULSE 62–94; RESP 16–24; TEMP 35.9–36.3; O2SAT 91–100
[2020-11-19 00:03] LABS: Glucose Point of Care 329 (65-105)
[2020-11-19] MEDS: INSULIN ASPART (*BKC) 100 UNITS/ML 8 UNITS SUB-Q (00:24)
[2020-11-19] MEDS: ALBUTEROL SULFATE NEB 2.5 MG/0.5 ML INH 5 MG INHALATION ×2 (01:48→09:32)
[2020-11-19] MEDS: IPRATROPIUM BR 0.02% INH SOLN 0.5 MG/2.5 ML VIAL INHALATION ×4 (01:48→20:31)
[2020-11-19] MEDS: ACETAMINOPHEN 325 MG TABLET 650 MG PO ×4 (05:57→22:42)
[2020-11-19] MEDS: TIZANIDINE HCL 4 MG TABLET PO ×3 (05:58→20:41)
[2020-11-19] MEDS: methylPREDNISolone SOD SUCC 125 MG VIAL 60 MG IV PUSH ×3 (05:58→22:42)
[2020-11-19 07:48] LABS: Glucose Point of Care 279 (65-105)
[2020-11-19] MEDS: INSULIN GLARGINE (*BKC) 100 UNITS/ML 10 UNITS SUB-Q (07:52)
[2020-11-19] MEDS: INSULIN ASPART (*BKC) 100 UNITS/ML SUB-Q ×3 (07:53→16:39)
--- NOTE | 2020-11-19 09:59 | PM.CNPUL ---
Assessment and Plan Assessment and plan (1) Aspiration pneumonia: Code(s): J69.0 - Pneumonitis due to inhalation of food and vomit Status: Acute Assessment and Plan: She has no risk factors for multi-drug resistant organisms hence I will discontinue her vancomycin. I will also discontinue the ceftriaxone and start her on Unasyn 3 g IV Q 6 hours for total of 7 days. She can be transitioned to Augmentin if she is nearing discharge and clinically improving. (2) COPD exacerbation: Code(s): J44.1 - Chronic obstructive pulmonary disease with (acute) exacerbation Status: Acute Assessment and Plan: I will start her on ipratropium 0.5 mg q.6 hours Will also add Pulmicort 0.5 mg q.12 hours Albuterol 2.5 mg nebulized q.6 hours p.r.n. systemic steroids can be discontinued. (3) RONAL (obstructive sleep apnea): Code(s): G47.33 - Obstructive sleep apnea (adult) (pediatric) Status: Acute Assessment and Plan: Her split night study was read as unsatisfactory when she was on 17/13 cm of water pressure. This was because she see had significant hypopnea events recorded at 57 per hour while on those settings with significant desaturations. While in house I will increase her BiPAP to 20/15 with oxygen bleed in at 4 L. History of Present Illness History of Present Illness Consult date: 11/18/20 Chief complaint: CHF, AE COPD, UTI Narrative: This is a 80-year-old obese female with history of COPD, severe obstructive sleep apnea and congestive heart failure who presents with increasing shortness of breath and cough. She also complained of a sore throat and having a bit of fever on admission. She denies any recent sick contacts. She had COVID-19 back in May 2020 has and has recovered from that. She was slightly more hypoxic on admission but in no respiratory distress and currently on nasal cannula at 4 L. chest x-ray showed increased interstitial markings suggestive of possible congestive heart failure and BNP was in the 3 thousands but she had no physical exam findings of volume overload. Despite diuresis she was not improving. A CT scan of the chest was done which showed bibasilar infiltrates and atelectasis suggestive of pneumonia and she only had mild pleural effusions and no significant signs of pulmonary vascular congestion. This pattern is consistent with possible aspiration pneumonia. When asked the patient denies any significant aspiration event at home and has no difficulty swallowing food or water she claims. Review of Systems Review of Systems: All systems reviewed & are unremarkable except as noted in HPI and below PMFSH Past Medical History Medical History Anxiety Atrial fibrillation Chads Vasc 2 is 7 although she is not on long-term anticoagulation. Chronic anemia Chronic kidney disease, stage 3 Baseline creatinine is between 1.3 and 1.50. Chronic obstructive pulmonary disease Chronic pain Chronic respiratory failure with hypoxia On 2 to 3 L nasal cannula. Congestive heart failure Echocardiogram on 06/07/2020 showed grade 2 diastolic dysfunction, ejection fraction of 55 to 60%, moderate aortic stenosis, and moderate pulmonary hypertension without wall motion abnormalities. Coronary artery disease Status post angioplasty status stent to the mid LAD on 06/13/[address] Rodarte. COVID-19 (~05/2020) Depression Fibromyalgia Gastritis (~08/19/20) Gastroesophageal reflux disease Gout Hyperlipidemia Hypertension Insulin dependent type 2 diabetes mellitus Complicated by diabetic peripheral neuropathy. Hemoglobin A1c was 5.2% in July 2020. Large hiatal hernia Noted on EGD in July [address] Chaudhari. Left bundle branch block Obstructive sleep apnea Pneumonia Recurrent urinary tract infection Sinus bradycardia Surgical History Surgical History
[2020-11-19] MEDS: CLOPIDOGREL BISULFATE 75 MG TABLET PO (10:06)
[2020-11-19] MEDS: PANTOPRAZOLE 40 MG TABLET PO (10:08)
[2020-11-19] MEDS: calcitrioL 0.25 MCG CAPSULE PO (10:13)
[2020-11-19] MEDS: amLODIPine BESYLATE 5 MG TABLET PO (10:13)
[2020-11-19] MEDS: FERROUS SULFATE 324 MG TABLET PO ×2 (10:14→16:38)
[2020-11-19] MEDS: COLCHICINE 0.6 MG TABLET PO ×2 (10:15→16:38)
[2020-11-19] MEDS: hydrALAZINE HCL 25 MG TABLET PO ×2 (10:15→16:38)
[2020-11-19] MEDS: ATORVASTATIN 40 MG TABLET 80 MG PO (10:19)
[2020-11-19] MEDS: MAGNESIUM OXIDE 400 MG TABLET PO (10:19)
[2020-11-19] MEDS: FENOFIBRATE NANOCRYSTALLIZED 145 MG TABLET PO (10:21)
[2020-11-19] MEDS: ISOSORBIDE MONONITRATE 30 MG TAB.ER.24H PO (10:21)
[2020-11-19] MEDS: PREGABALIN (*CRX) 50 MG CAPSULE 200 MG PO ×2 (10:22→16:38)
--- NOTE | 2020-11-19 10:22 | PM.PNPUL ---
Progress Note: A&P Assessment and Plan (1) Aspiration pneumonia: Code(s): J69.0 - Pneumonitis due to inhalation of food and vomit Status: Acute Assessment and Plan: Continue Unasyn 3 g IV q.6 hours for a total of 7 days. Can switch to Augmentin if clinically improving and ready for discharge. Swallow evaluation by speech pathology has been ordered. Cornet flutter valve q.2 hours while awake consider decreasing dose of diuretics. (2) Chronic respiratory failure with hypoxia: Code(s): J96.11 - Chronic respiratory failure with hypoxia Status: Acute (3) COPD exacerbation: Code(s): J44.1 - Chronic obstructive pulmonary disease with (acute) exacerbation Status: Acute Assessment and Plan: Continue Pulmicort 0.5 mg q.12 hours nebulized Continue ipratropium 0.5 mg q.6 hours nebulized Continue albuterol 2.5 mg Q 6 hours p.r.n. (4) RONAL (obstructive sleep apnea): Code(s): G47.33 - Obstructive sleep apnea (adult) (pediatric) Status: Acute Assessment and Plan: will change BiPAP to 20/15 cm H2O with 4 L of oxygen bleed in q.h.s. and while sleeping Subjective Date/time seen: 11/19/20 10:22 Interval history: no significant improvement she still has a cough that is mostly nonproductive but she is in no respiratory distress and still requiring oxygen per nasal cannula. She is being treated for aspiration pneumonia and COPD exacerbation. Although her BNP was elevated on admission she does have clinical features of volume overload and CHF exacerbation and hence diuretic doses should be decreased. Review of Systems Review of Systems: All systems reviewed & are unremarkable except as noted in HPI and below Exam Const: General: comfortable, no acute distress, alert, awake and other (Who chronically looking) Nutritional Appearance: average body habitus and overweight Orientation/consciousness: patient oriented x3 HENMT: Head: normal to inspection, normocephalic and atraumatic Ears: hearing grossly normal bilaterally Face and sinus: normal facial exam Eyes: General: appearance normal, both eyes and all related structures Pupils: Equal, round and reactive pupils present EOM: EOMs intact bilaterally Neck: Neck: full ROM, no lymphadenopathy and no JVD Thyroid: thyroid normal Lymphatic: no lymphadenopathy noted Resp: Effort & Inspection: normal respiratory effort and able to speak in complete sentences Auscultation: wheezes expiratory wheezes and diminished lung sounds Cardio: Jugular venous distension: no JVD Rate: regular rate Rhythm: regular rhythm Heart sounds: S1 normal heart sound present and S2 normal heart sound present GI: GI Palp: Yes Soft to palpation and Yes No hepatosplenomegaly present : General: Yes deferred Skin: Rashes: no rashes Wounds: no wounds Neuro: General: patient oriented x3 and CN's II-XI intact bilaterally Cranial nerves: Yes CN's II-XII intact bilaterally and Yes Equal, round and reactive pupils present Cognition (Neuro): normal cognition Speech: normal speech Gait exam (Neuro): Normal gait present Motor exam (neuro): 5/5 motor strength present throughout Extrem: General: normal to inspection, full ROM, no joint enlargement and no pedal edema Objective Data Vital Signs Vital Signs: Vital Signs - 24 hr 11/18/20 12:00 11/18/20 14:00 11/18/20 14:19 Temperature 36.2 C L Pulse Rate 105 H 100 78 Respiratory Rate 20 18 Blood Pressure 110/72 Pulse Oximetry 97 11/18/20 14:29 11/18/20 16:00 11/18/20 18:28 Temperature Pulse Rate 79 81 85 Respiratory Rate 18 18 Blood Pressure Pulse Oximetry 94 11/18/20 18:35 11/18/20 20:00 11/18/20 21:02 Temperature 36.2 C L Pulse Rate 84 99 76 Respiratory Rate 18 20 Blood Pressure 121/68 Pulse Oximetry 96 98 11/18/20 22:57 11/19/20 00:00 11/19/20 01:48 Temperature Pulse Rate 81 71 87 Respiratory Rate 22 H 23 H Blood Pressure Pulse Oxim
[2020-11-19] MEDS: TORSEMIDE 20 MG TABLET 40 MG PO (11:33)
[2020-11-19] MEDS: LIDOCAINE 5% PATCH 1 PATCH TRANSDERM (11:33)
[2020-11-19] MEDS: APIXABAN 5 MG TABLET PO ×2 (11:33→20:40)
[2020-11-19] MEDS: EUCERIN CREAM 120 GM JAR 1 APPLIC TOPICAL (11:34)
[2020-11-19] MEDS: AMPICILLIN SULB 3 GM/NS 100 ML 3 GM/100 ML VIAL IVPB ×2 (11:46→18:44)
[2020-11-19] MEDS: TOLNAFTATE 1% POWDER 45 GM BTL 1 APPLIC TOPICAL ×2 (11:49→20:41)
[2020-11-19 12:07] LABS: Glucose Point of Care 356 (65-105)
--- NOTE | 2020-11-19 12:44 | PM.IMPN ---
Progress Note: A&P Assessment and Plan (1) Aspiration pneumonia: Code(s): J69.0 - Pneumonitis due to inhalation of food and vomit Status: Acute Assessment and Plan: patient currently on Unasyn afebrile (2) Insulin dependent diabetes mellitus: Status: Acute Assessment and Plan: 1800 calorie restricted carb consist Accu-Cheks a.c. and HS insulin sliding scale as needed (3) Multilobar lung infiltrate: Code(s): R91.8 - Other nonspecific abnormal finding of lung field Status: Acute Assessment and Plan: currently on Unasyn await cultures (4) CKD (chronic kidney disease): Code(s): N18.9 - Chronic kidney disease, unspecified Status: Acute Assessment and Plan: continue to monitor or BUN and creatinine (5) Chronic respiratory failure with hypoxia: Code(s): J96.11 - Chronic respiratory failure with hypoxia Status: Acute Assessment and Plan: on supplemental O2 appreciate pulmonology note (6) Acute on chronic diastolic CHF (congestive heart failure): Code(s): I50.33 - Acute on chronic diastolic (congestive) heart failure Status: Acute Assessment and Plan: patient diuresed aggressively now diuretics have been discontinued (7) RONAL (obstructive sleep apnea): Code(s): G47.33 - Obstructive sleep apnea (adult) (pediatric) Status: Acute Assessment and Plan: continue CPAP (8) Atrial fibrillation: Code(s): I48.91 - Unspecified atrial fibrillation Status: Acute Assessment and Plan: rate controlled (9) Insulin dependent type 2 diabetes mellitus: Code(s): E11.9 - Type 2 diabetes mellitus without complications; 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 Status: Acute Assessment and Plan: continue to monitor (10) Hypertension: Qualifiers: Hypertension type: unspecified Qualified Code(s): I10 - Essential (primary) hypertension Code(s): I10 - Essential (primary) hypertension Status: Chronic Assessment and Plan: continue home med well controlled Subjective Date/time seen: 11/19/20 12:44 patient states that she is still not feeling well Review of Systems Review of Systems: Narrative: patient presented to emergency room due to worsening shortness of breath Constitutional: Comments: chills Cardiovascular: Comments: shortness of breath Respiratory: Comments: nonproductive cough Gastrointestinal: Comments: no nausea no vomiting no diarrhea no constipation no abdominal pain Musculoskeletal: Comments: no muscle pain or joint Integumentary/Breasts: Comments: no rash Neurologic: Comments: no sensorimotor deficit Exam Narrative: Exam Narrative: laying in bed in no acute distress Const: General: comfortable, no acute distress, alert, awake and ill appearing Nutritional Appearance: overweight and other ( chronically ill-looking) Orientation/consciousness: patient oriented x3 HENMT: Head: normal to inspection, normocephalic and atraumatic Ears: hearing grossly normal bilaterally Face and sinus: normal facial exam Eyes: General: appearance normal, both eyes and all related structures Pupils: Equal, round and reactive pupils present EOM: EOMs intact bilaterally Neck: Neck: full ROM, no lymphadenopathy and no JVD Thyroid: thyroid normal Lymphatic: no lymphadenopathy noted Resp: Effort & Inspection: normal respiratory effort and able to speak in complete sentences Auscultation: clear to auscultation bilaterally Cardio: Jugular venous distension: no JVD Rate: regular rate Rhythm: regular rhythm Heart sounds: S1 normal heart sound present and S2 normal heart sound present GI: GI Palp: Yes Soft to palpation and Yes No hepatosplenomegaly present : General: Yes deferred Skin: Rashes: no rashes Wounds: no wounds Neuro: General: patient oriented x3 and CN's II-XI intact bilaterally Cranial ner
--- NOTE | 2020-11-19 15:16 | PCSTNOTE ---
Please refer to the Bedside Swallow Evaluation in the EMR. Please note, silent aspiration cannot be ruled out at bedside.
[2020-11-19 16:31] LABS: Glucose Point of Care 379 (65-105)
[2020-11-19] MEDS: BUDESONIDE RESPULE NEB 0.5 MG/2 ML AMP 1 MG INHALATION (20:31)
[2020-11-19] MEDS: ALBUTEROL SULFATE NEB 2.5 MG/0.5 ML INH INHALATION (20:31)
[2020-11-19 21:02] LABS: Glucose Point of Care 338 (65-105)
[2020-11-20] VITALS (17 sets, daily range): BP systolic 130–171; BP diastolic 62–99; PULSE 60–94; RESP 14–20; TEMP 35.4–36.3; O2SAT 92–100
[2020-11-20] MEDS: AMPICILLIN SULB 3 GM/NS 100 ML 3 GM/100 ML VIAL IVPB ×5 (00:07→23:17)
[2020-11-20] MEDS: ALBUTEROL SULFATE NEB 2.5 MG/0.5 ML INH INHALATION ×3 (02:38→20:16)
[2020-11-20] MEDS: IPRATROPIUM BR 0.02% INH SOLN 0.5 MG/2.5 ML VIAL INHALATION ×4 (02:38→20:16)
[2020-11-20] MEDS: methylPREDNISolone SOD SUCC 125 MG VIAL 60 MG IV PUSH ×3 (05:54→21:12)
[2020-11-20 07:59] LABS: Glucose Point of Care 301 (65-105)
[2020-11-20] MEDS: TIZANIDINE HCL 4 MG TABLET PO ×3 (08:03→21:10)
[2020-11-20] MEDS: TOLNAFTATE 1% POWDER 45 GM BTL 1 APPLIC TOPICAL ×2 (08:04→21:11)
[2020-11-20] MEDS: calcitrioL 0.25 MCG CAPSULE PO (08:04)
[2020-11-20] MEDS: COLCHICINE 0.6 MG TABLET PO ×2 (08:04→16:59)
[2020-11-20] MEDS: amLODIPine BESYLATE 5 MG TABLET PO (08:04)
[2020-11-20] MEDS: TORSEMIDE 20 MG TABLET 40 MG PO (08:04)
[2020-11-20] MEDS: PANTOPRAZOLE 40 MG TABLET PO (08:04)
[2020-11-20] MEDS: CLOPIDOGREL BISULFATE 75 MG TABLET PO (08:04)
[2020-11-20] MEDS: ATORVASTATIN 40 MG TABLET 80 MG PO (08:05)
[2020-11-20] MEDS: FENOFIBRATE NANOCRYSTALLIZED 145 MG TABLET PO (08:05)
[2020-11-20] MEDS: FERROUS SULFATE 324 MG TABLET PO ×2 (08:05→16:59)
[2020-11-20] MEDS: ISOSORBIDE MONONITRATE 30 MG TAB.ER.24H PO (08:05)
[2020-11-20] MEDS: hydrALAZINE HCL 25 MG TABLET PO ×2 (08:05→16:59)
[2020-11-20] MEDS: MAGNESIUM OXIDE 400 MG TABLET PO (08:05)
[2020-11-20] MEDS: LIDOCAINE 5% PATCH 1 PATCH TRANSDERM (08:05)
[2020-11-20] MEDS: APIXABAN 5 MG TABLET PO ×2 (08:05→21:10)
[2020-11-20] MEDS: EUCERIN CREAM 120 GM JAR 1 APPLIC TOPICAL (08:08)
[2020-11-20] MEDS: ACETAMINOPHEN 325 MG TABLET 650 MG PO ×2 (08:13→12:38)
[2020-11-20] MEDS: INSULIN ASPART (*BKC) 100 UNITS/ML SUB-Q ×3 (08:25→17:03)
[2020-11-20] MEDS: INSULIN GLARGINE (*BKC) 100 UNITS/ML 10 UNITS SUB-Q ×2 (08:26→17:02)
[2020-11-20] MEDS: PREGABALIN (*CRX) 50 MG CAPSULE 200 MG PO ×2 (09:16→16:59)
[2020-11-20] MEDS: BUDESONIDE RESPULE NEB 0.5 MG/2 ML AMP 1 MG INHALATION ×2 (09:19→20:17)
--- NOTE | 2020-11-20 10:43 | PM.PNPUL ---
Progress Note: A&P Assessment and Plan (1) Aspiration pneumonia: Code(s): J69.0 - Pneumonitis due to inhalation of food and vomit Status: Acute Assessment and Plan: Continue Unasyn 3 g IV q.6 hours for a total of 7 days. Can switch to Augmentin if clinically improving and ready for discharge. Swallow evaluation by speech pathology has been ordered. Cornet flutter valve q.2 hours while awake consider decreasing dose of diuretics. (2) Chronic respiratory failure with hypoxia: Code(s): J96.11 - Chronic respiratory failure with hypoxia Status: Acute (3) COPD exacerbation: Code(s): J44.1 - Chronic obstructive pulmonary disease with (acute) exacerbation Status: Acute Assessment and Plan: Continue Pulmicort 0.5 mg q.12 hours nebulized Continue ipratropium 0.5 mg q.6 hours nebulized Continue albuterol 2.5 mg Q 6 hours p.r.n. (4) RONAL (obstructive sleep apnea): Code(s): G47.33 - Obstructive sleep apnea (adult) (pediatric) Status: Acute Assessment and Plan: will change BiPAP to 20/15 cm H2O with 2 L of oxygen bleed in q.h.s. and while sleeping Subjective Date/time seen: 11/20/20 10:43 Interval history: She is feeling better today and tolerated her new BiPAP settings last night. O2 saturations have been doing well on 2 L. her cough is diminishing but still present. Review of Systems Review of Systems: All systems reviewed & are unremarkable except as noted in HPI and below Exam Const: General: comfortable, no acute distress, alert, awake and other (Who chronically looking) Nutritional Appearance: average body habitus and overweight Orientation/consciousness: patient oriented x3 HENMT: Head: normal to inspection, normocephalic and atraumatic Ears: hearing grossly normal bilaterally Face and sinus: normal facial exam Eyes: General: appearance normal, both eyes and all related structures Pupils: Equal, round and reactive pupils present EOM: EOMs intact bilaterally Neck: Neck: full ROM, no lymphadenopathy and no JVD Thyroid: thyroid normal Lymphatic: no lymphadenopathy noted Resp: Effort & Inspection: normal respiratory effort and able to speak in complete sentences Auscultation: wheezes expiratory wheezes and diminished lung sounds Cardio: Jugular venous distension: no JVD Rate: regular rate Rhythm: regular rhythm Heart sounds: S1 normal heart sound present and S2 normal heart sound present GI: GI Palp: Yes Soft to palpation and Yes No hepatosplenomegaly present : General: Yes deferred Skin: Rashes: no rashes Wounds: no wounds Neuro: General: patient oriented x3 and CN's II-XI intact bilaterally Cranial nerves: Yes CN's II-XII intact bilaterally and Yes Equal, round and reactive pupils present Cognition (Neuro): normal cognition Speech: normal speech Gait exam (Neuro): Normal gait present Motor exam (neuro): 5/5 motor strength present throughout Extrem: General: normal to inspection, full ROM, no joint enlargement and no pedal edema Objective Data Vital Signs Vital Signs: Vital Signs - 24 hr 11/19/20 12:00 11/19/20 13:10 11/19/20 15:10 Temperature 36.1 C L 36.3 C L Pulse Rate 94 72 88 Respiratory Rate 22 H 20 Blood Pressure 137/76 158/86 H Pulse Oximetry 96 96 11/19/20 15:21 11/19/20 15:26 11/19/20 20:35 Temperature Pulse Rate 78 77 78 Respiratory Rate 18 18 Blood Pressure Pulse Oximetry 11/19/20 21:00 11/19/20 21:39 11/19/20 21:50 Temperature 36.3 C L Pulse Rate 87 77 Respiratory Rate 24 H 20 Blood Pressure 130/75 Pulse Oximetry 100 100 98 11/20/20 02:36 11/20/20 02:38 11/20/20 03:05 Temperature Pulse Rate 72 64 67 Respiratory Rate 14 18 18 Blood Pressure Pulse Oximetry 97 11/20/20 06:00 11/20/20 08:00 11/20/20 09:22 Temperature 36.2 C L 35.4 C L Pulse Rate 71 86 68 Respiratory Rate 16 20 18 Blood Pressure 140/87 171/99 H Pulse Oximetry 99 99 97 11/20/20
[2020-11-20 11:14] LABS: Hematocrit 32.3 % (37.0-47.0); Hemoglobin 9.6 g/dL (12.0-15.0); Mean Corpuscular HGB Conc 29.7 g/dl (32-36); Mean Corpuscular Hemoglobin 28.7 pg (26-34); Mean Corpuscular Volume 96.4 fl (80-100); Mean Platelet Volume 11.9 fl (7.4-10.4); Platelet Count Result 242 k/mm3 (150-375); Red Blood Count 3.35 M/mm3 (4.2-5.4); Red Cell Distribution Width 14.8 % (11.5-14.5); White Blood Count 6.5 K/mm3 (4.5-10.0)
[2020-11-20 11:34] LABS: Glucose Point of Care 451 (65-105)
--- NOTE | 2020-11-20 11:36 | PCPTNOTE ---
The patient treatment was not able to be completed on 11-20-2020 due to patient stated feeling tired and wanted to try again later. Will plan to continue treatment per plan of care.
[2020-11-20 11:38] LABS: Anion Gap 8 mmol/L (8-16); Blood Urea Nitrogen 71 mg/dL (7-17); Calcium 8.5 mg/dL (8.4-10.2); Carbon Dioxide 38 mmol/L (22-30); Chloride 94 mmol/L (98-107); Estimated CRCL calculation 28 ml/min; Estimated Glomerular Filt Rate 27; Glucose 469 mg/dL (65-105); Potassium 3.7 mmol/L (3.4-5.0); Sodium 140 mmol/L (137-145)
[2020-11-20] MEDS: INSULIN ASPART (*BKC) 100 UNITS/ML 15 UNITS SUB-Q (12:37)
--- NOTE | 2020-11-20 13:40 | PC.NURSE ---
On 11/20/20, the student, [Joann Galarza ], provided care and completed [facility] documentation on this patient. I have reviewed the student's documentation and agree with the findings.
--- NOTE | 2020-11-20 13:50 | PCOTNOTE ---
Attempted to see patient this PM. Unable to see patient for skilled OT session at this time due to being taken for CAT scan. Will attempt to see patient for a second time this date if possible. Continue per Plan of Care.
--- NOTE | 2020-11-20 15:10 | PM.IMPN ---
Progress Note: A&P Assessment and Plan (1) Aspiration pneumonia: Code(s): J69.0 - Pneumonitis due to inhalation of food and vomit Status: Acute Assessment and Plan: patient currently on Unasyn oxygenation bettter as well afebrile (2) Insulin dependent diabetes mellitus: Status: Acute Assessment and Plan: 1800 calorie restricted carb consist Accu-Cheks a.c. and HS insulin sliding scale as needed (3) Multilobar lung infiltrate: Code(s): R91.8 - Other nonspecific abnormal finding of lung field Status: Acute Assessment and Plan: currently on Unasyn await cultures (4) CKD (chronic kidney disease): Code(s): N18.9 - Chronic kidney disease, unspecified Status: Acute Assessment and Plan: continue to monitor or BUN and creatinine (5) Chronic respiratory failure with hypoxia: Code(s): J96.11 - Chronic respiratory failure with hypoxia Status: Acute Assessment and Plan: on supplemental O2 appreciate pulmonology note EF low to 35 %, comapared to one from jun 2020. will consult cardiology. seen dr. Ham last admission. (6) Acute on chronic diastolic CHF (congestive heart failure): Code(s): I50.33 - Acute on chronic diastolic (congestive) heart failure Status: Acute Assessment and Plan: patient diuresed aggressively now diuretics has been switched to oral terosemide (7) RONAL (obstructive sleep apnea): Code(s): G47.33 - Obstructive sleep apnea (adult) (pediatric) Status: Acute Assessment and Plan: continue CPAP (8) Atrial fibrillation: Code(s): I48.91 - Unspecified atrial fibrillation Status: Acute Assessment and Plan: rate controlled. aon apixaban for anticoagulation (9) Insulin dependent type 2 diabetes mellitus: Code(s): E11.9 - Type 2 diabetes mellitus without complications; Z79.4 - nursing home (current) use of insulin Status: Acute Assessment and Plan: continue to monitor with steorid noted hyperglycemia. will icnrease lantus and increase the SSi add mealtime insulin. adjust insulin as needed (10) Hypertension: Qualifiers: Hypertension type: unspecified Qualified Code(s): I10 - Essential (primary) hypertension Code(s): I10 - Essential (primary) hypertension Status: Chronic Assessment and Plan: continue home med well controlled Subjective Date/time seen: 11/20/20 15:10 Interval history: patient is feeling little better. she reports she is getting little crabby and probably because she is feeling better. she reports her breathign is better. no chest pain. she has some cough. no fever, chills. Review of Systems Review of Systems: All systems reviewed & are unremarkable except as noted in HPI and below ( HPI) Constitutional: Constitutional: Denies chills, Reports fatigue, Reports lethargy and Reports weakness Eyes: Eyes: Denies blurry vision and Denies photophobia ENT: Denies epistaxis and Denies nasal discharge Cardiovascular: Cardiovascular: Denies chest pain, Denies palpitations and Reports dyspnea Respiratory: Respiratory: Reports cough, Reports dyspnea and Reports dyspnea on exertion Gastrointestinal: Gastrointestinal: Denies abdominal pain, Denies bloating, Denies diarrhea, Denies nausea and Denies vomiting Genitourinary: Genitourinary: Denies hematuria and Denies flank pain Musculoskeletal: Musculoskeletal: Denies back pain and Denies neck pain Integumentary/Breasts: Skin/Breast: Denies dry skin and Denies pruritus Neurologic: Denies confusion and Denies numbness Psychiatric: Psychiatric: Denies anxiety and Denies behavioral changes Exam Narrative: Exam Narrative: laying in bed in no acute distress Const: General: comfortable, no acute distress, alert, awake, ill appearing and other (Who chronically looking) Nutritional Appearance: overweight and other ( chronically ill-looking)
[2020-11-20 17:05] LABS: Glucose Point of Care 273 (65-105)
[2020-11-20 21:34] LABS: Glucose Point of Care 219 (65-105)
[2020-11-21] VITALS (16 sets, daily range): BP systolic 127–150; BP diastolic 69–90; PULSE 60–120; RESP 15–22; TEMP 36.1–36.7; O2SAT 92–99
[2020-11-21] MEDS: IPRATROPIUM BR 0.02% INH SOLN 0.5 MG/2.5 ML VIAL INHALATION ×4 (03:21→18:49)
[2020-11-21] MEDS: AMPICILLIN SULB 3 GM/NS 100 ML 3 GM/100 ML VIAL IVPB ×4 (05:28→23:54)
[2020-11-21] MEDS: methylPREDNISolone SOD SUCC 125 MG VIAL 60 MG IV PUSH (05:29)
[2020-11-21 06:35] LABS: Basophils Percent Auto 0.1 % (0.2-1.2); Hemoglobin 9.4 g/dL (12.0-15.0); Immature Granulocyte Absolute 0.18 K/mm3 (0.00-0.031); Immature Granulocyte Percent A 2.6 % (0-0.5); Lymphocytes Absolute Auto 0.37 K/mm3 (0.9-3.2); Lymphocytes Percent Auto 5.4 % (18.3-44.2); Mean Corpuscular HGB Conc 29.4 g/dl (32-36); Mean Corpuscular Hemoglobin 27.6 pg (26-34); Mean Corpuscular Volume 93.8 fl (80-100); Mean Platelet Volume 12.4 fl (7.4-10.4); Monocytes Absolute Auto 0.5 K/mm3 (0.1-0.6); Monocytes Percent Auto 7.7 % (2.6-8.5); Neutrophils Absolute Auto 5.8 K/mm3 (1.3-6.7); Neutrophils Percent Auto 84.2 % (45.5-73.1); Platelet Count Result 261 k/mm3 (150-375); Red Blood Count 3.41 M/mm3 (4.2-5.4); Red Cell Distribution Width 14.6 % (11.5-14.5); White Blood Count 6.9 K/mm3 (4.5-10.0)
[2020-11-21 06:44] LABS: Blood Urea Nitrogen 74 mg/dL (7-17); Calcium 8.5 mg/dL (8.4-10.2); Carbon Dioxide > 40 mmol/L (22-30); Chloride 96 mmol/L (98-107); Estimated CRCL calculation 33 ml/min; Estimated Glomerular Filt Rate 34; Glucose 128 mg/dL (65-105); Magnesium 2.2 mg/dL (1.6-2.3); NT Pro B Type Natriuretic Pept 19300 PG/ML (5-100); Potassium 3.7 mmol/L (3.4-5.0); Sodium 143 mmol/L (137-145)
[2020-11-21 07:12] LABS: Anisocytosis 1+ (NORMAL); Hypochromasia 1+ (NORMAL); Ovalocytes 1+ (NORMAL); Platelet Estimate Adequate (Adequate)
[2020-11-21 07:30] LABS: Glucose Point of Care 129 (65-105)
--- NOTE | 2020-11-21 08:15 | PC.NURSE ---
Dr. Nicholson was made aware Pt c/o chest pain, increase S.O.B, pulse ox 92% with 2LNC, Lungs sounds diminished with bilateral expiratory wheezes, pt BNP is elevated. MD ordered chest x-ray, ekg, and troponin level, cardiology was consulted.
[2020-11-21] MEDS: hydrALAZINE HCL 25 MG TABLET PO ×2 (08:24→17:46)
[2020-11-21] MEDS: FERROUS SULFATE 324 MG TABLET PO ×2 (08:24→17:46)
--- NOTE | 2020-11-21 08:24 | ECG_ITS ---
Measurements Intervals [place] Rate: 116 P: [place]: 0 QRS: 10 QRSD: 145 T: -61 QT: 353 QTc: 491 Interpretive Statements ATRIAL FIBRILLATION WITH RAPID VENTRICULAR RESPONSE LEFT BUNDLE BRANCH BLOCK ANTEROSEPTAL INFARCT OR DUE TO LBBB ABNORMAL ECG Electronically Signed On 11-21-2020 9:32:08 CDT by Rick Zapata D.O.
[2020-11-21] MEDS: INSULIN ASPART (*BKC) 100 UNITS/ML SUB-Q ×3 (08:25→17:41)
[2020-11-21] MEDS: INSULIN GLARGINE (*BKC) 100 UNITS/ML 10 UNITS SUB-Q ×2 (08:26→17:42)
[2020-11-21] MEDS: BUDESONIDE RESPULE NEB 0.5 MG/2 ML AMP 1 MG INHALATION ×2 (08:33→18:49)
[2020-11-21] MEDS: ALBUTEROL SULFATE NEB 2.5 MG/0.5 ML INH INHALATION ×2 (08:33→18:48)
[2020-11-21] MEDS: FUROSEMIDE INJ 40 MG/4 ML VIAL (08:38)
[2020-11-21 08:40] LABS: NT Pro B Type Natriuretic Pept 21600 PG/ML (5-100)
[2020-11-21] MEDS: FUROSEMIDE INJ 40 MG/4 ML VIAL IV PUSH (08:45)
[2020-11-21] MEDS: ACETAMINOPHEN 325 MG TABLET 650 MG PO ×3 (08:55→22:23)
--- NOTE | 2020-11-21 08:56 | PM.IMPN ---
Progress Note: A&P Assessment and Plan (1) Aspiration pneumonia: Code(s): J69.0 - Pneumonitis due to inhalation of food and vomit Status: Acute Assessment and Plan: patient currently on Unasyn oxygenation bettter as well afebrile Will continue with IV antibiotics, repeat chest x-ray in the morning. (2) Insulin dependent diabetes mellitus: Status: Acute Assessment and Plan: 1800 calorie restricted carb consist Accu-Cheks a.c. and HS insulin sliding scale as needed (3) Multilobar lung infiltrate: Code(s): R91.8 - Other nonspecific abnormal finding of lung field Status: Acute Assessment and Plan: currently on Unasyn await cultures Continue antibiotics. Repeat chest x-ray in the morning. (4) CKD (chronic kidney disease): Code(s): N18.9 - Chronic kidney disease, unspecified Status: Acute Assessment and Plan: continue to monitor or BUN and creatinine (5) Chronic respiratory failure with hypoxia: Code(s): J96.11 - Chronic respiratory failure with hypoxia Status: Acute Assessment and Plan: on supplemental O2 appreciate pulmonology note EF low to 35 %, comapared to one from jun 2020. will consult cardiology. seen dr. Ham last admission. (6) Acute on chronic diastolic CHF (congestive heart failure): Code(s): I50.33 - Acute on chronic diastolic (congestive) heart failure Status: Acute Assessment and Plan: Will stop IV fluid. Give IV Lasix. Will consult Cardiology. (7) RONAL (obstructive sleep apnea): Code(s): G47.33 - Obstructive sleep apnea (adult) (pediatric) Status: Acute Assessment and Plan: continue CPAP (8) Atrial fibrillation: Code(s): I48.91 - Unspecified atrial fibrillation Status: Acute Assessment and Plan: rate controlled. aon apixaban for anticoagulation (9) Insulin dependent type 2 diabetes mellitus: Code(s): E11.9 - Type 2 diabetes mellitus without complications; Z79.4 - alf (current) use of insulin Status: Acute Assessment and Plan: continue to monitor with steorid noted hyperglycemia. will icnrease lantus and increase the SSi add mealtime insulin. adjust insulin as needed (10) Hypertension: Qualifiers: Hypertension type: unspecified Qualified Code(s): I10 - Essential (primary) hypertension Code(s): I10 - Essential (primary) hypertension Status: Chronic Assessment and Plan: continue home med well controlled Additional Plan In view of her recent shortness of breath in the morning and a very high BNP level,will make the following changes. Will stop IV fluids. Will DC p.o. Lasix. Will start IV Lasix. Monitor electrolytes. Repeat chest x-ray in the morning. Cardiology consult has been ordered. Subjective Date/time seen: 11/21/20 08:56 Interval history: Patient was seen during the morning rounds today. Patient has moderate shortness of breath. Has difficulty lying down on the bed, is sitting up on the side of the bed. No chest pain. No abdominal pain, no nausea or vomiting. Mood stable. Review of Systems Review of Systems: All systems reviewed & are unremarkable except as noted in HPI and below ( HPI) Constitutional: Constitutional: Denies chills, Reports fatigue, Reports lethargy and Reports weakness Eyes: Eyes: Denies blurry vision and Denies photophobia ENT: Denies epistaxis, Denies nasal discharge and Denies neck pain Cardiovascular: Cardiovascular: Denies chest pain, Denies palpitations, Reports dyspnea and Reports dyspnea on exertion Respiratory: Respiratory: Reports cough, Reports dyspnea and Reports dyspnea on exertion Gastrointestinal: Gastrointestinal: Denies abdominal pain, Denies bloating, Denies diarrhea, Denies nausea and Denies vomiting Genitourinary: Genitourinary: Denies hematuria and Denies flank pain Musculoskeletal: Musculoskeletal: Denies back florin
[2020-11-21] MEDS: calcitrioL 0.25 MCG CAPSULE PO (08:58)
[2020-11-21] MEDS: ATORVASTATIN 40 MG TABLET 80 MG PO (08:58)
[2020-11-21] MEDS: PANTOPRAZOLE 40 MG TABLET PO (08:59)
[2020-11-21] MEDS: CLOPIDOGREL BISULFATE 75 MG TABLET PO (08:59)
[2020-11-21] MEDS: amLODIPine BESYLATE 5 MG TABLET PO (08:59)
[2020-11-21] MEDS: APIXABAN 5 MG TABLET PO ×2 (08:59→20:23)
[2020-11-21] MEDS: FENOFIBRATE NANOCRYSTALLIZED 145 MG TABLET PO (09:00)
[2020-11-21] MEDS: MAGNESIUM OXIDE 400 MG TABLET PO (09:00)
[2020-11-21] MEDS: ISOSORBIDE MONONITRATE 30 MG TAB.ER.24H PO (09:00)
[2020-11-21] MEDS: TIZANIDINE HCL 4 MG TABLET PO ×4 (09:00→22:24)
[2020-11-21] MEDS: COLCHICINE 0.6 MG TABLET PO ×2 (09:00→17:47)
[2020-11-21] MEDS: LIDOCAINE 5% PATCH 1 PATCH TRANSDERM (09:01)
[2020-11-21] MEDS: TOLNAFTATE 1% POWDER 45 GM BTL 1 APPLIC TOPICAL ×2 (09:01→20:23)
[2020-11-21] MEDS: EUCERIN CREAM 120 GM JAR 1 APPLIC TOPICAL (09:02)
[2020-11-21] MEDS: PREGABALIN (*CRX) 50 MG CAPSULE 200 MG PO ×2 (09:08→17:46)
[2020-11-21 09:23] LABS: Troponin I 0.047 ng/mL (0.000-0.034)
[2020-11-21 11:33] LABS: Glucose Point of Care 127 (65-105)
--- NOTE | 2020-11-21 12:23 | PM.PNPUL ---
Progress Note: A&P Assessment and Plan (1) Aspiration pneumonia: Code(s): J69.0 - Pneumonitis due to inhalation of food and vomit Status: Acute Assessment and Plan: Continue Unasyn 3 g IV q.6 hours for a total of 7 days. Can switch to Augmentin if clinically improving and ready for discharge. Swallow evaluation by speech pathology has been ordered. Cornet flutter valve q.2 hours while awake consider decreasing dose of diuretics. (2) Chronic respiratory failure with hypoxia: Code(s): J96.11 - Chronic respiratory failure with hypoxia Status: Acute (3) COPD exacerbation: Code(s): J44.1 - Chronic obstructive pulmonary disease with (acute) exacerbation Status: Acute Assessment and Plan: Continue Pulmicort 0.5 mg q.12 hours nebulized Continue ipratropium 0.5 mg q.6 hours nebulized Continue albuterol 2.5 mg Q 6 hours p.r.n. Discontinue all systemic steroids today, no need for tapering (4) RONAL (obstructive sleep apnea): Code(s): G47.33 - Obstructive sleep apnea (adult) (pediatric) Status: Acute Assessment and Plan: will change BiPAP to 20/15 cm H2O with 2 L of oxygen bleed in q.h.s. and while sleeping Subjective Date/time seen: 11/21/20 12:23 Interval history: Doing well and sleeping comfortably in bed. Oxygenation has been stable. She is tolerating nighttime BiPAP 20/15 with 2 L bleed in. She is tolerating IV Unasyn for aspiration pneumonia. Echocardiogram showed a dramatic drop in ejection fraction of 35% when compared to a few months ago and Cardiology has been consulted. Review of Systems Review of Systems: All systems reviewed & are unremarkable except as noted in HPI and below Exam Const: General: comfortable, no acute distress, alert, awake and other (Who chronically looking) Nutritional Appearance: average body habitus and overweight Orientation/consciousness: patient oriented x3 HENMT: Head: normal to inspection, normocephalic and atraumatic Ears: hearing grossly normal bilaterally Face and sinus: normal facial exam Eyes: General: appearance normal, both eyes and all related structures Pupils: Equal, round and reactive pupils present EOM: EOMs intact bilaterally Neck: Neck: full ROM, no lymphadenopathy and no JVD Thyroid: thyroid normal Lymphatic: no lymphadenopathy noted Resp: Effort & Inspection: normal respiratory effort and able to speak in complete sentences Auscultation: wheezes expiratory wheezes and diminished lung sounds Cardio: Jugular venous distension: no JVD Rate: regular rate Rhythm: regular rhythm Heart sounds: S1 normal heart sound present and S2 normal heart sound present GI: GI Palp: Yes Soft to palpation and Yes No hepatosplenomegaly present : General: Yes deferred Skin: Rashes: no rashes Wounds: no wounds Neuro: General: patient oriented x3 and CN's II-XI intact bilaterally Cranial nerves: Yes CN's II-XII intact bilaterally and Yes Equal, round and reactive pupils present Cognition (Neuro): normal cognition Speech: normal speech Gait exam (Neuro): Normal gait present Motor exam (neuro): 5/5 motor strength present throughout Extrem: General: normal to inspection, full ROM, no joint enlargement and no pedal edema Objective Data Vital Signs Vital Signs: Vital Signs - 24 hr 11/20/20 14:00 11/20/20 14:46 11/20/20 14:53 Temperature 36.2 C L Pulse Rate 94 81 60 Respiratory Rate 16 20 20 Blood Pressure 136/62 Pulse Oximetry 93 11/20/20 20:00 11/20/20 20:19 11/20/20 20:35 Temperature Pulse Rate 88 72 70 Respiratory Rate 20 18 15 Blood Pressure Pulse Oximetry 100 98 11/20/20 22:00 11/20/20 23:40 11/21/20 03:22 Temperature 36.3 C L Pulse Rate 88 82 66 Respiratory Rate 20 20 15 Blood Pressure 151/79 H Pulse Oximetry 100 97 11/21/20 03:23 11/21/20 03:30 11/21/20 06:00 Temperature 36.1 C L Pulse Rate 66 64 70 Respiratory Rate 15 15 16 Blood Pressure 150/
--- NOTE | 2020-11-21 13:42 | PC.NURSE ---
On 11/21/20, the student, [Fanny Levin ], provided care and completed [facility] documentation on this patient. I have reviewed the student's documentation and agree with the findings.
--- NOTE | 2020-11-21 14:56 | PCPTNOTE ---
The PT treatment was unable to be completed today due to patient refusal. Will continue per Plan of Care frequency and duration.
[2020-11-21 16:41] LABS: Glucose Point of Care 152 (65-105)
[2020-11-21 19:33] LABS: Vancomycin Trough < 5.0 ug/mL (10.0-20.0)
[2020-11-21 21:16] LABS: Glucose Point of Care 88 (65-105)
[2020-11-22] VITALS (22 sets, daily range): BP systolic 115–140; BP diastolic 57–86; PULSE 66–104; RESP 16–22; TEMP 35.9–36.1; O2SAT 87–100
[2020-11-22] MEDS: IPRATROPIUM BR 0.02% INH SOLN 0.5 MG/2.5 ML VIAL INHALATION ×4 (01:47→21:39)
[2020-11-22] MEDS: ACETAMINOPHEN 325 MG TABLET 650 MG PO ×3 (05:08→21:55)
[2020-11-22] MEDS: AMPICILLIN SULB 3 GM/NS 100 ML 3 GM/100 ML VIAL IVPB ×3 (05:09→18:45)
[2020-11-22] MEDS: TIZANIDINE HCL 4 MG TABLET PO ×3 (05:09→22:02)
[2020-11-22 05:47] LABS: Hematocrit 32.5 % (37.0-47.0); Hemoglobin 9.6 g/dL (12.0-15.0); Mean Corpuscular HGB Conc 29.5 g/dl (32-36); Mean Corpuscular Hemoglobin 27.8 pg (26-34); Mean Corpuscular Volume 94.2 fl (80-100); Mean Platelet Volume 12.2 fl (7.4-10.4); Platelet Count Result 254 k/mm3 (150-375); Red Blood Count 3.45 M/mm3 (4.2-5.4); Red Cell Distribution Width 14.6 % (11.5-14.5); White Blood Count 8.3 K/mm3 (4.5-10.0)
[2020-11-22 06:09] LABS: Alanine Aminotransferase 59 U/L (4-35); Albumin Level 3.6 g/dL (3.5-5.1); Alkaline Phosphatase 42 U/L (38-126); Aspartate Amino Transferase 41 U/L (14-36); Bilirubin,Total 0.4 mg/dL (0.2-1.3); Blood Urea Nitrogen 74 mg/dL (7-17); Calcium 8.4 mg/dL (8.4-10.2); Carbon Dioxide > 40 mmol/L (22-30); Chloride 100 mmol/L (98-107); Estimated CRCL calculation 38 ml/min; Estimated Glomerular Filt Rate 40; Glucose 48 mg/dL (65-105); Potassium 3.1 mmol/L (3.4-5.0); Sodium 146 mmol/L (137-145)
[2020-11-22] MEDS: GLUCOSE ORAL GEL 15 GM OF GLUCSE IN 37.5 GM TUBE PO (06:17)
[2020-11-22 06:52] LABS: Glucose Point of Care 119 (65-105)
[2020-11-22] MEDS: BUDESONIDE RESPULE NEB 0.5 MG/2 ML AMP 1 MG INHALATION ×2 (08:02→21:40)
[2020-11-22] MEDS: ALBUTEROL SULFATE NEB 2.5 MG/0.5 ML INH INHALATION (08:02)
[2020-11-22 08:13] LABS: Glucose Point of Care 90 (65-105)
--- NOTE | 2020-11-22 08:23 | PM.IMPN ---
Progress Note: A&P Assessment and Plan (1) Aspiration pneumonia: Code(s): J69.0 - Pneumonitis due to inhalation of food and vomit Status: Acute Assessment and Plan: patient currently on Unasyn oxygenation bettter as well afebrile Will continue with IV antibiotics, repeat chest x-ray in the morning. (2) Insulin dependent diabetes mellitus: Status: Acute Assessment and Plan: 1800 calorie restricted carb consist Accu-Cheks a.c. and HS insulin sliding scale as needed (3) Multilobar lung infiltrate: Code(s): R91.8 - Other nonspecific abnormal finding of lung field Status: Acute Assessment and Plan: currently on Unasyn await cultures Continue antibiotics. Repeat chest x-ray in the morning. (4) CKD (chronic kidney disease): Code(s): N18.9 - Chronic kidney disease, unspecified Status: Acute Assessment and Plan: continue to monitor or BUN and creatinine (5) Chronic respiratory failure with hypoxia: Code(s): J96.11 - Chronic respiratory failure with hypoxia Status: Acute Assessment and Plan: on supplemental O2 appreciate pulmonology note EF low to 35 %, comapared to one from jun 2020. will consult cardiology. seen dr. Ham last admission. (6) Acute on chronic diastolic CHF (congestive heart failure): Code(s): I50.33 - Acute on chronic diastolic (congestive) heart failure Status: Acute Assessment and Plan: Will stop IV fluid. Give IV Lasix. Will consult Cardiology. (7) RONAL (obstructive sleep apnea): Code(s): G47.33 - Obstructive sleep apnea (adult) (pediatric) Status: Acute Assessment and Plan: continue CPAP (8) Atrial fibrillation: Code(s): I48.91 - Unspecified atrial fibrillation Status: Acute Assessment and Plan: rate controlled. aon apixaban for anticoagulation (9) Insulin dependent type 2 diabetes mellitus: Code(s): E11.9 - Type 2 diabetes mellitus without complications; Z79.4 - prison (current) use of insulin Status: Acute Assessment and Plan: continue to monitor with steorid noted hyperglycemia. will icnrease lantus and increase the SSi add mealtime insulin. adjust insulin as needed (10) Hypertension: Qualifiers: Hypertension type: unspecified Qualified Code(s): I10 - Essential (primary) hypertension Code(s): I10 - Essential (primary) hypertension Status: Chronic Assessment and Plan: continue home med well controlled Additional Plan In view of her recent shortness of breath in the morning and a very high BNP level,will make the following changes. Will stop IV fluids. Will DC p.o. Lasix. Will start IV Lasix. Monitor electrolytes. Repeat chest x-ray in the morning. Cardiology consult appreciated. Potassium is still low replace and monitor closely. Subjective Date/time seen: 11/22/20 08:23 Interval history: Patient was seen during the morning rounds today. Patient shortness of breath is better. Has difficulty lying down on the bed, is sitting up on the side of the bed. No chest pain. No abdominal pain, no nausea or vomiting. Mood stable. No new complaints. Review of Systems Review of Systems: All systems reviewed & are unremarkable except as noted in HPI and below ( HPI) Constitutional: Constitutional: Denies chills, Reports fatigue, Reports lethargy and Reports weakness Eyes: Eyes: Denies blurry vision and Denies photophobia ENT: Denies epistaxis, Denies nasal discharge and Denies neck pain Cardiovascular: Cardiovascular: Denies chest pain, Denies palpitations, Reports dyspnea and Reports dyspnea on exertion Respiratory: Respiratory: Reports cough, Reports dyspnea and Reports dyspnea on exertion Gastrointestinal: Gastrointestinal: Denies abdominal pain, Denies bloating, Denies diarrhea, Denies nausea and Denies vomiting Genitourinary: Genitourinary: Denies hematuria and Denies
[2020-11-22] MEDS: PREGABALIN (*CRX) 50 MG CAPSULE 200 MG PO ×2 (08:44→16:50)
[2020-11-22] MEDS: FUROSEMIDE INJ 40 MG/4 ML VIAL IV PUSH (08:46)
[2020-11-22] MEDS: LIDOCAINE 5% PATCH 1 PATCH TRANSDERM (08:46)
[2020-11-22] MEDS: FERROUS SULFATE 324 MG TABLET PO ×2 (08:48→16:46)
[2020-11-22] MEDS: POTASSIUM CHLORIDE 20 MEQ TABLET.ER 40 MEQ PO (08:48)
[2020-11-22] MEDS: APIXABAN 5 MG TABLET PO ×2 (08:48→20:38)
[2020-11-22] MEDS: hydrALAZINE HCL 25 MG TABLET PO ×2 (08:48→16:46)
[2020-11-22] MEDS: FENOFIBRATE NANOCRYSTALLIZED 145 MG TABLET PO (08:49)
[2020-11-22] MEDS: amLODIPine BESYLATE 5 MG TABLET PO (08:49)
[2020-11-22] MEDS: PANTOPRAZOLE 40 MG TABLET PO (08:49)
[2020-11-22] MEDS: MAGNESIUM OXIDE 400 MG TABLET PO (08:49)
[2020-11-22] MEDS: COLCHICINE 0.6 MG TABLET PO ×2 (08:49→16:46)
[2020-11-22] MEDS: CLOPIDOGREL BISULFATE 75 MG TABLET PO (08:49)
[2020-11-22] MEDS: ATORVASTATIN 40 MG TABLET 80 MG PO (08:49)
[2020-11-22] MEDS: calcitrioL 0.25 MCG CAPSULE PO (08:49)
[2020-11-22] MEDS: ISOSORBIDE MONONITRATE 30 MG TAB.ER.24H PO (08:49)
[2020-11-22] MEDS: TOLNAFTATE 1% POWDER 45 GM BTL 1 APPLIC TOPICAL ×2 (08:50→20:38)
[2020-11-22] MEDS: EUCERIN CREAM 120 GM JAR 1 APPLIC TOPICAL (08:51)
--- NOTE | 2020-11-22 09:19 | PM.CNCAR ---
Assessment and Plan Assessment and plan (1) Aspiration pneumonia: Code(s): J69.0 - Pneumonitis due to inhalation of food and vomit Status: Acute (2) Insulin dependent diabetes mellitus: Status: Acute (3) CKD (chronic kidney disease): Code(s): N18.9 - Chronic kidney disease, unspecified Status: Acute (4) CHF (congestive heart failure): Code(s): I50.9 - Heart failure, unspecified Status: Acute Assessment and Plan: Her ECHO done few days ago and read by Dr. Quintana suggest moderate LV systolic dysfunction (LVEF 35%). Previous ECHO showed normal LV systolic function and diastolic dysfunction.Itwas done in 06/18. Pt had COVID pneumonia in Jul 2020. 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 wll adjust meds for CHF. She may benefit from further cardiac evaluation on outpatient basis when recovers from current medical condition (5) Atrial fibrillation with controlled ventricular response: Code(s): I48.91 - Unspecified atrial fibrillation Status: Acute Assessment and Plan: Pt is in AFIB HR well controlled cont current meds including anticoagulation Thank you for consult. Junaid ibanez.. History of Present Illness History of Present Illness Consult date/time: 11/22/20 Ms. Vicente is a pleasant 80 y/o female with PMH of COVID pneumonia, HTN, CAD, DM, HTN, COPD on home oxygen who presented to [facility] ON 11/16/20 due to SOB. PT WAS FOUND TO HAVE ABNORMAL CXR AND PULMONARY WAS CONSULTED. Diagnosed with aspiration pneumonia. On antibiotics. Previously had fever and dry cough She was found to be hypoxic. Her CXR showed RUL and RLL infiltrates.pt with COVID pneumonia Chest CT was negative for pulmonary embolism and was found to have hiatal hernia. Pt is currently 4 l oxygen by [facility] at [facility] since 06/18. She is known to have chronic COPD on home oxygen. Pt does have CRI as well. Review of records showed that pt was admitted in May 2020 and at that time underwent cath as well as PCI/stenting of LAD with ADITI. Her recent ECHO showed normal LV systolic function (LVEF 55-60%) and moderate pulmonary HTN. Pt was seen and examined, case was reviewed. d/w pt's nurse. Reason For Visit: CHF, AE COPD, UTI Review of Systems Review of Systems: All systems reviewed & are unremarkable except as noted in HPI and below Constitutional: Constitutional: Reports as per HPI Eyes: Eyes: Reports as per HPI ENT: Reports system reviewed and no additional complaints, except as documented and Reports as per HPI Cardiovascular: Cardiovascular: Reports as per HPI Respiratory: Respiratory: Reports as per HPI Gastrointestinal: Gastrointestinal: Reports as per HPI Genitourinary: Genitourinary: Reports as per HPI Musculoskeletal: Musculoskeletal: Reports as per HPI [facility] Past Medical History Medical History Anxiety Atrial fibrillation Chads Vasc 2 is 7 although she is not on long-term anticoagulation. Chronic anemia Chronic kidney disease, stage 3 Baseline creatinine is between 1.3 and 1.50. Chronic obstructive pulmonary disease Chronic pain Chronic respiratory failure with hypoxia On 2 to 3 L nasal cannula. Congestive heart failure Echocardiogram on 06/07/2020 showed grade 2 diastolic dysfunction, ejection fraction of 55 to 60%, moderate aortic stenosis, and moderate pulmonary hypertension without wall motion abnormalities. Coronary artery disease Status post angioplasty status stent to the mid LAD on 06/13/[address] Rodarte. COVID-19 (~05/2020) Depression Fibromyalgia Gastritis (~08/19/20) Gastroesophageal reflux disease Gout Hyperlipidemia Hypertension Insulin dependent type 2 diabetes mellitus Complicated by diabetic peripheral neuropathy. Hemoglobin A1c was 5.2% in July 2020. Large hiatal hernia Noted on EGD in July [address] Chaudhari. Left bundle branch block Obst
--- NOTE | 2020-11-22 09:45 | PCOTNOTE ---
Patient c/o nausea/not feeling well. Patient declined OT at this time, will attempt patient later today.
[2020-11-22] MEDS: LOPERAMIDE HCL 2 MG CAPSULE 4 MG PO (10:09)
[2020-11-22] MEDS: ONDANSETRON INJ 4 MG/2 ML VIAL IV PUSH (10:10)
--- NOTE | 2020-11-22 11:52 | PCOTNOTE ---
Attempted to see patient for second time this AM, patient asked to wait until after lunch - I won't be able to enjoy lunch because I won't be able to breathe if I do exercises before I eat. Patient asked therapist to attempt again after she eats lunch. Will try back then.
[2020-11-22 11:56] LABS: Glucose Point of Care 137 (65-105)
--- NOTE | 2020-11-22 13:22 | PM.PNPUL ---
Progress Note: A&P Assessment and Plan (1) Aspiration pneumonia: Qualifiers: Aspiration pneumonia type: unspecified Laterality: bilateral Lung location: lower lobe of lung Qualified Code(s): J69.0 - Pneumonitis due to inhalation of food and vomit Code(s): J69.0 - Pneumonitis due to inhalation of food and vomit Status: Acute Assessment and Plan: Continue Unasyn 3 g IV q.6 hours for a total of 7 days. Can switch to Augmentin if clinically improving and ready for discharge. Swallow evaluation by speech pathology has been ordered. Cornet flutter valve q.2 hours while awake consider decreasing dose of diuretics. (2) Chronic respiratory failure with hypoxia: Code(s): J96.11 - Chronic respiratory failure with hypoxia Status: Acute (3) COPD exacerbation: Code(s): J44.1 - Chronic obstructive pulmonary disease with (acute) exacerbation Status: Acute Assessment and Plan: Continue Pulmicort 0.5 mg q.12 hours nebulized Continue ipratropium 0.5 mg q.6 hours nebulized Continue albuterol 2.5 mg Q 6 hours p.r.n. Discontinue all systemic steroids today, no need for tapering (4) RONAL (obstructive sleep apnea): Code(s): G47.33 - Obstructive sleep apnea (adult) (pediatric) Status: Acute Assessment and Plan: will change BiPAP to 20/15 cm H2O with 2 L of oxygen bleed in q.h.s. and while sleeping (5) Coag negative Staphylococcus bacteremia: Code(s): R78.81 - Bacteremia; B95.7 - Other staphylococcus as the cause of diseases classified elsewhere Status: Acute Assessment and Plan: Will consult Dr. Sommers. Unclear wether this was a true infection or contaminate. Appears to be 2/2 bottles that [address] Appreciate [address]. Sommers's support. Subjective Date/time seen: 11/22/20 13:22 Interval history: She is doing well today. Blood cultures grow 2/2 coag-negative staph aureus many days after they were drawn. It is unclear whether this is a contaminant or a true infection. The patient has been hemodynamically stable and shows no signs Of sepsis. Echocardiogram showed no signs of endocarditis. Review of Systems Review of Systems: All systems reviewed & are unremarkable except as noted in HPI and below Exam Const: General: comfortable, no acute distress, alert, awake and other (Who chronically looking) Nutritional Appearance: average body habitus and overweight Orientation/consciousness: patient oriented x3 HENMT: Head: normal to inspection, normocephalic and atraumatic Ears: hearing grossly normal bilaterally Face and sinus: normal facial exam Eyes: General: appearance normal, both eyes and all related structures Pupils: Equal, round and reactive pupils present EOM: EOMs intact bilaterally Neck: Neck: full ROM, no lymphadenopathy and no JVD Thyroid: thyroid normal Lymphatic: no lymphadenopathy noted Resp: Effort & Inspection: normal respiratory effort and able to speak in complete sentences Auscultation: wheezes expiratory wheezes and diminished lung sounds Cardio: Jugular venous distension: no JVD Rate: regular rate Rhythm: regular rhythm Heart sounds: S1 normal heart sound present and S2 normal heart sound present GI: GI Palp: Yes Soft to palpation and Yes No hepatosplenomegaly present : General: Yes deferred Skin: Rashes: no rashes Wounds: no wounds Neuro: General: patient oriented x3 and CN's II-XI intact bilaterally Cranial nerves: Yes CN's II-XII intact bilaterally and Yes Equal, round and reactive pupils present Cognition (Neuro): normal cognition Speech: normal speech Gait exam (Neuro): Normal gait present Motor exam (neuro): 5/5 motor strength present throughout Extrem: General: normal to inspection, full ROM, no joint enlargement and no pedal edema Objective Data Vital Signs Vital Signs: Vital Signs - 24 hr 11/21/20 14:00 11/21/20 14:04 11/21/20 14:15 Temperature 36.7 C Pulse Rate 88 94 100 Respirato
[2020-11-22] MEDS: SODIUM CHLORIDE 0.9% IV 100 ML 25 ML (14:15)
--- NOTE | 2020-11-22 15:07 | WPDINFPN2 ---
Progress Note: A&P Assessment and Plan (1) Coag negative Staphylococcus bacteremia: Code(s): R78.81 - Bacteremia; B95.7 - Other staphylococcus as the cause of diseases classified elsewhere Status: Acute Assessment and Plan: 1. CNSS bacteremia, suspect true infection 2. LRTI REC Vanc # 1 / 7 days until AM 4/3, PharmD dosing. No further evaluation from my standpoint. Call if other Qs Subjective Date/time seen: 11/22/20 15:07 Objective Data Vital Signs Vital Signs: Vital Signs - 24 hr 11/21/20 16:00 11/21/20 18:06 11/21/20 18:50 Temperature 36.4 C L Pulse Rate 72 109 H 90 Respiratory Rate 16 20 Blood Pressure 131/78 Pulse Oximetry 92 96 11/21/20 20:00 11/21/20 21:58 11/22/20 00:00 Temperature 36.2 C L Pulse Rate 90 60 71 Respiratory Rate 20 20 Blood Pressure 127/90 Pulse Oximetry 96 99 11/22/20 01:48 11/22/20 01:50 11/22/20 01:51 Temperature Pulse Rate 77 79 66 Respiratory Rate 16 16 16 Blood Pressure Pulse Oximetry 87 L 11/22/20 04:00 11/22/20 06:00 11/22/20 08:00 Temperature 36.1 C L Pulse Rate 69 84 77 Respiratory Rate 20 Blood Pressure 140/81 Pulse Oximetry 98 94 11/22/20 08:02 11/22/20 08:12 11/22/20 12:00 Temperature Pulse Rate 86 90 102 H Respiratory Rate 18 18 Blood Pressure Pulse Oximetry 94 11/22/20 14:00 11/22/20 14:39 11/22/20 14:49 Temperature 35.9 C L Pulse Rate 72 88 91 Respiratory Rate 18 18 18 Blood Pressure 115/57 L Pulse Oximetry 94 Intake/Output Intake/Output: Intake & Output 11/19/20 11/20/20 11/21/20 11/22/20 23:59 23:59 23:59 23:59 Intake Total 1330 2440 1350 1430 Output Total 900 2150 2950 1000 Balance 430 290 -1600 430 Meds/Results Medications: Active Medications Generic Name Dose Route Start Last Admin Trade Name Freq PRN Reason Stop Dose Admin Acetaminophen 650 mg 11/17/20 10:12 11/22/20 14:17 Acetaminophen 325 Mg Tablet PO 650 mg Q4H PRN Administration Pain Albuterol 2 puff 11/17/20 08:19 Albuterol Sulfate (*Sp) Aerosol 1 Puff INHALATION Q4-6H PRN Shortness Of Breath Albuterol 2.5 mg 11/19/20 10:32 11/22/20 08:02 Albuterol Sulfate Neb 2.5 Mg/0.5 Ml Inh INHALATION 2.5 mg Q6HRT PRN Administration Dyspnea Amlodipine Besylate 5 mg 11/17/20 09:00 11/22/20 08:49 Amlodipine Besylate 5 Mg Tablet PO 5 mg DAILY BEL Administration Apixaban 5 mg 11/17/20 09:00 11/22/20 08:48 Apixaban 5 Mg Tablet PO 5 mg Q12HR BEL Administration Atorvastatin Calcium 80 mg 11/17/20 09:00 11/22/20 08:49 Atorvastatin 40 Mg Tablet PO 80 mg DAILY BEL Administration Budesonide 1 mg 11/19/20 20:00 11/22/20 08:02 Budesonide Respule Neb 0.5 Mg/2 Ml Amp INHALATION 1 mg Q12HRT BEL Administration Budesonide/Formoterol Fumarate 2 puff 11/17/20 08:00 11/19/20 09:59 Budesonide/Form 160-4.5 Mcg (*Sp) INHALATION 2 puff Q12HRT BEL Administration Calcitriol 0.25 mcg 11/17/20 09:00 11/22/20 08:49 Calcitriol 0.25 Mcg Capsule PO 0.25 mcg DAILY BEL Administration Carvedilol 3.125 mg 11/22/20 21:00 Carvedilol 3.125 Mg Tablet PO Q12HR BEL Clopidogrel Bisulfate 75 mg 11/17/20 09:00 11/22/20 08:49 Clopidogrel Bisulfate 75 Mg Tablet PO 75 mg QAM BEL Administration Colchicine 0.6 mg 11/17/20 09:00 11/22/20 08:49 Colchicine 0.6 Mg Tablet PO 12/17/20 09:01 0.6 mg BID BEL Administration Dextrose 12.5 gm 11/17/20 03:42 Dextrose 50% 25 Gm/50 Ml Syringe IV PUSH PRN PRN Hypoglycemia Protocol Fenofibrate 145 mg 11/17/20 09:00 11/22/20 08:49 Fenofibrate Nanocrystallized 145 Mg Tablet PO 145 mg DAILY BEL Administration Ferrous Sulfate 324 mg 11/17/20 08:00 11/22/20 08:48 Ferrous Sulfate 324 Mg Tablet PO 324 mg BIDWM BEL Administration Furosemide 40 mg 11/22/20 09:00 11/22/20 08:46 Furosemide Inj 40 Mg/4 Ml Vial IV PUSH 40 mg HARITHA
[2020-11-22 16:50] LABS: Glucose Point of Care 163 (65-105)
[2020-11-22] MEDS: INSULIN GLARGINE (*BKC) 100 UNITS/ML 10 UNITS SUB-Q (16:54)
[2020-11-22 20:29] LABS: Glucose Point of Care 252 (65-105)
[2020-11-22] MEDS: carvediloL 3.125 MG TABLET PO (20:37)
--- NOTE | 2020-11-22 20:47 | CONS_ITS ---
DATE OF CONSULTATION: 11/22/2020 REASON FOR CONSULTATION: Bacteremia. HISTORY OF PRESENT ILLNESS: A 80-year-old female with coronary stents. She also has known COPD and obesity hypoventilation syndrome. She has no other vascular devices in place and has never had a blood stream infection she is aware of. The patient also has a chronic congestive heart failure. She was admitted through the emergency room on the November 17 with sputum production, shortness of breath, and fever up to 102 at home without rigors or night sweats. She has been ill for about 3 days. She has been treated for aspiration pneumonia while here with ampicillin and sulbactam and also azithromycin. Has been given steroids. She had a single dose of vancomycin on the when her blood culture initially came back positive, none since then. She has dermatitis underneath her abdominal folds as well as underneath her breasts for at least 3 months and perhaps longer term. Otherwise, she has no ulcerations or other skin conditions. PRESENT MEDICATIONS: She is on steroids while here though not at home. No other immunosuppressants. HABITS: Ex-smoker. No alcohol. ALLERGIES: NONE PERTINENT. PAST MEDICAL HISTORY: In addition to the above, AF, stage III renal insufficiency, chronic respiratory failure, Coronavirus infection in May 2020, fibromyalgia, depression, GERD, gout, hyperlipidemia, hypertension, morbid obesity, type 2 diabetes mellitus, and left bundle branch block. REVIEW OF SYSTEMS: 14-point review otherwise negative. FAMILY HISTORY: Not pertinent to present illness. SOCIAL HISTORY: . Lives locally. Does not work outside the home. PHYSICAL EXAMINATION: GENERAL: This is an elderly female, who appears her actual age. No respiratory distress. VITAL SIGNS: She has been afebrile throughout her hospital stay, blood pressure 115/57, heart rate 72, respirations 18, and O2 saturation 94%. SKIN: No generalized rashes. Warm and dry. EENT: Conjunctivae are normal. The oropharynx, oral mucosa normal. NECK: No masses or thyromegaly. No meningismus. LUNGS: Clear to auscultation and percussion. CHEST: No indwelling vascular devices. Equal expansion. CARDIAC: Soft S1, S2. No ectopy at this time. No murmurs or gallops. Pulses are 2+ and equal. ABDOMEN: Morbidly obese, nontender. No masses. She has minimal fungal dermatitis at the right inframammary and left inguinal area. EXTREMITIES: No clubbing, cyanosis, edema. LABORATORY DATA: Blood cultures from admission, 2/2 sets coagulase-negative staph. I reviewed the susceptibilities. White count 8.3, hemoglobin 9.6, platelets 254, her white count is 10.8 on admission, normal ever since. She has mild hypernatremia, BUN 74, creatinine 1.3. Accu-Cheks variable. Transaminases twice normal. Albumin 3.6. Urinalysis contaminated specimen. Blood cultures from September 06, final no growth. RADIOLOGICAL DATA: Chest x-ray, atelectasis, pneumonia, left base, small left pleural effusion, cardiomegaly. CT of the chest suggested moderate bibasilar inflammatory changes, atelectasis, cardiomegaly, PAH, pleural effusions, moderate hiatal hernia. Echocardiogram, no evidence of infection. ASSESSMENT: 1. Coagulase-negative Staph bacteremia. Suspect true infection rather than contaminant. Skin sores ultimately. I doubt ongoing endovascular infection including endocarditis. 2. Lower respiratory tract infection, possible pneumonia, on the above antibiotics per Dr. Borja. 3. Chronic obstructive pulmonary disease. 4. Congestive heart failure. 5. Diabetes mellitus. RECOMMENDATIONS: 1. Resume vancomycin and continue through a.m. November 30. Pharmacist to dose, target trough 10-15. 2. No need of further investigatio
[2020-11-23] VITALS (20 sets, daily range): BP systolic 98–138; BP diastolic 56–62; PULSE 70–97; RESP 16–22; TEMP 36.1–36.2; O2SAT 94–99
[2020-11-23] MEDS: AMPICILLIN SULB 3 GM/NS 100 ML 3 GM/100 ML VIAL IVPB ×4 (00:27→18:42)
[2020-11-23] MEDS: IPRATROPIUM BR 0.02% INH SOLN 0.5 MG/2.5 ML VIAL INHALATION ×4 (04:01→19:32)
[2020-11-23 05:25] LABS: Blood Urea Nitrogen 59 mg/dL (7-17); Calcium 8.1 mg/dL (8.4-10.2); Carbon Dioxide > 40 mmol/L (22-30); Chloride 99 mmol/L (98-107); Estimated CRCL calculation 38 ml/min; Estimated Glomerular Filt Rate 40; Glucose 122 mg/dL (65-105); Potassium 3.9 mmol/L (3.4-5.0); Sodium 145 mmol/L (137-145)
[2020-11-23] MEDS: ACETAMINOPHEN 325 MG TABLET 650 MG PO ×4 (05:58→22:32)
[2020-11-23] MEDS: TIZANIDINE HCL 4 MG TABLET PO ×2 (05:59→20:18)
[2020-11-23] MEDS: LOPERAMIDE HCL 2 MG CAPSULE PO ×4 (06:03→20:18)
[2020-11-23] MEDS: BUDESONIDE RESPULE NEB 0.5 MG/2 ML AMP 1 MG INHALATION ×2 (07:58→19:32)
[2020-11-23] MEDS: ALBUTEROL SULFATE NEB 2.5 MG/0.5 ML INH INHALATION (07:58)
--- NOTE | 2020-11-23 08:40 | PM.IMPN ---
Progress Note: A&P Assessment and Plan (1) Aspiration pneumonia: Qualifiers: Aspiration pneumonia type: unspecified Laterality: bilateral Lung location: lower lobe of lung Qualified Code(s): J69.0 - Pneumonitis due to inhalation of food and vomit Code(s): J69.0 - Pneumonitis due to inhalation of food and vomit Status: Acute Assessment and Plan: patient currently on Unasyn, vancomycin, azithromycin. oxygenation bettter as well, chronically on home oxygen 2 l afebrile Will continue with IV antibiotics (2) Insulin dependent diabetes mellitus: Status: Acute Assessment and Plan: 1800 calorie restricted carb consist Accu-Cheks a.c. and HS insulin sliding scale as needed (3) Multilobar lung infiltrate: Code(s): R91.8 - Other nonspecific abnormal finding of lung field Status: Acute Assessment and Plan: currently on Unasyn await cultures Continue antibiotics. Repeat chest x-ray in the morning. (4) CKD (chronic kidney disease): Code(s): N18.9 - Chronic kidney disease, unspecified Status: Acute Assessment and Plan: continue to monitor or BUN and creatinine (5) Chronic respiratory failure with hypoxia: Code(s): J96.11 - Chronic respiratory failure with hypoxia Status: Acute Assessment and Plan: on supplemental O2 appreciate pulmonology note EF low to 35 %, comapared to one from jun 2020. consulted cardiology. apprecaite their recs (6) Acute on chronic diastolic CHF (congestive heart failure): Code(s): I50.33 - Acute on chronic diastolic (congestive) heart failure Status: Acute Assessment and Plan: iv lasix. cardiology on board. (7) RONAL (obstructive sleep apnea): Code(s): G47.33 - Obstructive sleep apnea (adult) (pediatric) Status: Acute Assessment and Plan: continue CPAP (8) Atrial fibrillation: Code(s): I48.91 - Unspecified atrial fibrillation Status: Acute Assessment and Plan: rate controlled. aon apixaban for anticoagulation (9) Insulin dependent type 2 diabetes mellitus: Code(s): E11.9 - Type 2 diabetes mellitus without complications; Z79.4 - residential (current) use of insulin Status: Acute Assessment and Plan: continue to monitor with steorid noted hyperglycemia. now steroid is off. hyperglycemia improved. lantus 10 units bid. ssi. adjust insulin as needed (10) Hypertension: Qualifiers: Hypertension type: unspecified Qualified Code(s): I10 - Essential (primary) hypertension Code(s): I10 - Essential (primary) hypertension Status: Chronic Assessment and Plan: continue home med well controlled (11) Coag negative Staphylococcus bacteremia: Code(s): R78.81 - Bacteremia; B95.7 - Other staphylococcus as the cause of diseases classified elsewhere Status: Acute Assessment and Plan: Infectious disease consulted. x 2 CONS blood. on vancomycin. (12) Atrial fibrillation with controlled ventricular response: Code(s): I48.91 - Unspecified atrial fibrillation Status: Acute Subjective Date/time seen: 11/23/20 08:40 Interval history: no overnight events. she is getting better but not quite well she states. she reports sob on exertion. no fever, chills. Review of Systems Review of Systems: All systems reviewed & are unremarkable except as noted in HPI and below ( HPI) Constitutional: Constitutional: Denies chills, Reports fatigue, Reports lethargy and Reports weakness Eyes: Eyes: Denies blurry vision and Denies photophobia ENT: Denies epistaxis, Denies nasal discharge and Denies neck pain Cardiovascular: Cardiovascular: Denies chest pain, Denies palpitations, Reports dyspnea and Reports dyspnea on exertion Respiratory: Respiratory: Reports cough, Reports dyspnea and Reports dyspnea on exertion Gastrointestinal: Gastrointestinal: Denies abdominal pain, Denies
[2020-11-23 09:14] LABS: Glucose Point of Care 113 (65-105)
[2020-11-23] MEDS: FERROUS SULFATE 324 MG TABLET PO ×2 (09:15→17:00)
[2020-11-23] MEDS: POTASSIUM CHLORIDE 20 MEQ TABLET.ER 40 MEQ PO (09:15)
[2020-11-23] MEDS: hydrALAZINE HCL 25 MG TABLET PO ×2 (09:15→17:00)
[2020-11-23] MEDS: APIXABAN 5 MG TABLET PO ×2 (09:16→20:18)
[2020-11-23] MEDS: amLODIPine BESYLATE 5 MG TABLET PO (09:16)
[2020-11-23] MEDS: carvediloL 3.125 MG TABLET PO ×2 (09:17→20:18)
[2020-11-23] MEDS: COLCHICINE 0.6 MG TABLET PO ×2 (09:17→17:00)
[2020-11-23] MEDS: ATORVASTATIN 40 MG TABLET 80 MG PO (09:17)
[2020-11-23] MEDS: CLOPIDOGREL BISULFATE 75 MG TABLET PO (09:17)
[2020-11-23] MEDS: calcitrioL 0.25 MCG CAPSULE PO (09:17)
[2020-11-23] MEDS: ISOSORBIDE MONONITRATE 30 MG TAB.ER.24H PO (09:18)
[2020-11-23] MEDS: MAGNESIUM OXIDE 400 MG TABLET PO (09:18)
[2020-11-23] MEDS: FENOFIBRATE NANOCRYSTALLIZED 145 MG TABLET PO (09:18)
[2020-11-23] MEDS: PREGABALIN (*CRX) 50 MG CAPSULE 200 MG PO ×2 (09:18→17:00)
[2020-11-23] MEDS: PANTOPRAZOLE 40 MG TABLET PO (09:18)
[2020-11-23] MEDS: FUROSEMIDE INJ 40 MG/4 ML VIAL IV PUSH (09:18)
[2020-11-23] MEDS: LIDOCAINE 5% PATCH 1 PATCH TRANSDERM (09:25)
[2020-11-23] MEDS: INSULIN GLARGINE (*BKC) 100 UNITS/ML 10 UNITS SUB-Q ×2 (09:27→17:24)
[2020-11-23] MEDS: TOLNAFTATE 1% POWDER 45 GM BTL 1 APPLIC TOPICAL ×2 (09:31→20:18)
[2020-11-23] MEDS: EUCERIN CREAM 120 GM JAR 1 APPLIC TOPICAL (09:31)
--- NOTE | 2020-11-23 10:04 | PM.PNCARD ---
Progress Note: A&P Assessment and Plan (1) Aspiration pneumonia: Qualifiers: Aspiration pneumonia type: unspecified Laterality: bilateral Lung location: lower lobe of lung Qualified Code(s): J69.0 - Pneumonitis due to inhalation of food and vomit Code(s): J69.0 - Pneumonitis due to inhalation of food and vomit Status: Acute (2) Insulin dependent diabetes mellitus: Status: Acute (3) CKD (chronic kidney disease): Code(s): N18.9 - Chronic kidney disease, unspecified Status: Acute (4) CHF (congestive heart failure): Code(s): I50.9 - Heart failure, unspecified Status: Acute Assessment and Plan: Her ECHO done few days ago and read by Dr. Quintana suggest moderate LV systolic dysfunction (LVEF 35%). Previous ECHO showed normal LV systolic function and diastolic dysfunction.Itwas done in 06/18. Pt had COVID pneumonia in Jul 2020. 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 wll adjust meds for CHF. She may benefit from further cardiac evaluation on outpatient basis when recovers from current medical condition (5) Atrial fibrillation with controlled ventricular response: Code(s): I48.91 - Unspecified atrial fibrillation Status: Acute Assessment and Plan: Pt is in AFIB HR well controlled cont current meds including anticoagulation Thank you for consult. Junaid ibanez.. Subjective Date/time seen: 11/23/20 10:04 Feels well today, shortness breath better, no chest painHad some back pain, and now she has positive blood cultures Exam Const: General: alert and awake; No acute distress HENMT: Head: normal to inspection and atraumatic Ears: hearing grossly normal bilaterally Face and sinus: normal facial exam Eyes: General: appearance normal, both eyes and all related structures Pupils: Equal, round and reactive pupils present EOM: EOMs intact bilaterally Neck: Neck: normal visual inspection and no JVD Chest: Chest palpation & inspection: normal inspection of the chest Resp: Effort & Inspection: normal respiratory effort, no respiratory distress and prolonged expiratory phase Auscultation: rales Cardio: Jugular venous distension: no JVD Rate: other Rhythm: other (irregularly irregular) Heart sounds: Murmur heart sound present systolic GI: Inspection: normal to inspection Auscultation: normal bowel sounds Skin: General skin exam: normal color Neuro: Cranial nerves: Yes Equal, round and reactive pupils present Extrem: General: normal to inspection and no clubbing, cyanosis or edema Objective Data Vital Signs Vital Signs: Vital Signs - 24 hr 11/22/20 12:00 11/22/20 14:00 11/22/20 14:39 Temperature 35.9 C L Pulse Rate 102 H 72 88 Respiratory Rate 18 18 Blood Pressure 115/57 L Pulse Oximetry 94 11/22/20 14:49 11/22/20 16:00 11/22/20 20:00 Temperature Pulse Rate 91 104 H 88 Respiratory Rate 18 Blood Pressure Pulse Oximetry 11/22/20 20:37 11/22/20 20:38 11/22/20 20:45 Temperature 36.1 C L Pulse Rate 80 80 Respiratory Rate 20 Blood Pressure 118/86 Pulse Oximetry 100 100 11/22/20 21:41 11/22/20 21:42 11/22/20 21:58 Temperature Pulse Rate 93 95 Respiratory Rate 22 H 20 Blood Pressure Pulse Oximetry 87 L 11/22/20 22:45 11/23/20 00:00 11/23/20 04:00 Temperature Pulse Rate 69 97 91 Respiratory Rate 21 H Blood Pressure Pulse Oximetry 92 11/23/20 04:03 11/23/20 05:51 11/23/20 08:00 Temperature 36.2 C L Pulse Rate 92 72 95 Respiratory Rate 18 20 18 Blood Pressure 108/60 Pulse Oximetry 99 11/23/20 08:01 11/23/20 08:12 11/23/20 09:17 Temperature Pulse Rate 97 97 Respiratory Rate 18 Blood Pressure Pulse Oximetry 97 Intake/Output Intake/Output: Intake & Output 11/20/20 11/21/20 11/22/20 11/23/20 23:59 23:59 23:59 23:59 Intake Total 2440 1350 2370 600 Output Total 2150 2950 1600 200 Balance 290 -1600 770 400 Meds/Results Medi
[2020-11-23 12:29] LABS: Glucose Point of Care 180 (65-105)
--- NOTE | 2020-11-23 13:35 | PM.PNPUL ---
Progress Note: A&P Assessment and Plan (1) Aspiration pneumonia: Qualifiers: Aspiration pneumonia type: unspecified Laterality: bilateral Lung location: lower lobe of lung Qualified Code(s): J69.0 - Pneumonitis due to inhalation of food and vomit Code(s): J69.0 - Pneumonitis due to inhalation of food and vomit Status: Acute Assessment and Plan: Continue Unasyn 3 g IV q.6 hours for a total of 7 days. Can switch to Augmentin if clinically improving and ready for discharge. Swallow evaluation by speech pathology has been ordered. Cornet flutter valve q.2 hours while awake consider decreasing dose of diuretics. (2) Chronic respiratory failure with hypoxia: Code(s): J96.11 - Chronic respiratory failure with hypoxia Status: Acute (3) COPD exacerbation: Code(s): J44.1 - Chronic obstructive pulmonary disease with (acute) exacerbation Status: Acute Assessment and Plan: Continue Pulmicort 0.5 mg q.12 hours nebulized Continue ipratropium 0.5 mg q.6 hours nebulized Continue albuterol 2.5 mg Q 6 hours p.r.n. Discontinue all systemic steroids today, no need for tapering (4) RONAL (obstructive sleep apnea): Code(s): G47.33 - Obstructive sleep apnea (adult) (pediatric) Status: Acute Assessment and Plan: will change BiPAP to 20/15 cm H2O with 2 L of oxygen bleed in q.h.s. and while sleeping (5) Coag negative Staphylococcus bacteremia: Code(s): R78.81 - Bacteremia; B95.7 - Other staphylococcus as the cause of diseases classified elsewhere Status: Acute Assessment and Plan: Continue vancomycin per ID recommendations for a total of [address] Sommers's support. Subjective Date/time seen: 11/23/20 13:35 Interval history: She is feeling better. She is getting vancomycin for a total of 7 days for coag-negative bacteremia. Review of Systems Review of Systems: All systems reviewed & are unremarkable except as noted in HPI and below Exam Const: General: comfortable, no acute distress, alert, awake and other (Who chronically looking) Nutritional Appearance: average body habitus and overweight Orientation/consciousness: patient oriented x3 HENMT: Head: normal to inspection, normocephalic and atraumatic Ears: hearing grossly normal bilaterally Face and sinus: normal facial exam Eyes: General: appearance normal, both eyes and all related structures Pupils: Equal, round and reactive pupils present EOM: EOMs intact bilaterally Neck: Neck: full ROM, no lymphadenopathy and no JVD Thyroid: thyroid normal Lymphatic: no lymphadenopathy noted Resp: Effort & Inspection: normal respiratory effort and able to speak in complete sentences Auscultation: wheezes expiratory wheezes and diminished lung sounds Cardio: Jugular venous distension: no JVD Rate: regular rate Rhythm: regular rhythm Heart sounds: S1 normal heart sound present and S2 normal heart sound present GI: GI Palp: Yes Soft to palpation and Yes No hepatosplenomegaly present : General: Yes deferred Skin: Rashes: no rashes Wounds: no wounds Neuro: General: patient oriented x3 and CN's II-XI intact bilaterally Cranial nerves: Yes CN's II-XII intact bilaterally and Yes Equal, round and reactive pupils present Cognition (Neuro): normal cognition Speech: normal speech Gait exam (Neuro): Normal gait present Motor exam (neuro): 5/5 motor strength present throughout Extrem: General: normal to inspection, full ROM, no joint enlargement and no pedal edema Objective Data Vital Signs Vital Signs: Vital Signs - 24 hr 11/22/20 14:00 11/22/20 14:39 11/22/20 14:49 Temperature 35.9 C L Pulse Rate 72 88 91 Respiratory Rate 18 18 18 Blood Pressure 115/57 L Pulse Oximetry 94 11/22/20 16:00 11/22/20 20:00 11/22/20 20:37 Temperature Pulse Rate 104 H 88 80 Respiratory Rate Blood Pressure Pulse Oximetry 11/22/20 20:38 11/22/20 20:45 03
[2020-11-23 17:32] LABS: Glucose Point of Care 146 (65-105)
[2020-11-23 20:38] LABS: Glucose Point of Care 123 (65-105)
[2020-11-24] VITALS (20 sets, daily range): BP systolic 102–142; BP diastolic 49–80; PULSE 52–94; RESP 16–24; TEMP 35.9–36.7; O2SAT 92–100
[2020-11-24] MEDS: AMPICILLIN SULB 3 GM/NS 100 ML 3 GM/100 ML VIAL IVPB ×5 (00:16→23:42)
[2020-11-24] MEDS: NITROGLYCERIN SL 0.4 MG TABLET SUBLINGUAL (00:17)
[2020-11-24 00:35] LABS: Glucose Point of Care 121 (65-105)
[2020-11-24] MEDS: LOPERAMIDE HCL 2 MG CAPSULE PO ×4 (01:24→23:37)
[2020-11-24] MEDS: IPRATROPIUM BR 0.02% INH SOLN 0.5 MG/2.5 ML VIAL INHALATION ×4 (02:24→20:12)
[2020-11-24 05:38] LABS: Basophils Percent Auto 0.1 % (0.2-1.2); Eosinophils Absolute Auto 0.2 K/mm3 (0-0.3); Eosinophils Percent Auto 2.6 % (0-4.4); Hematocrit 31.1 % (37.0-47.0); Hemoglobin 8.7 g/dL (12.0-15.0); Immature Granulocyte Absolute 0.06 K/mm3 (0.00-0.031); Immature Granulocyte Percent A 0.9 % (0-0.5); Lymphocytes Absolute Auto 0.58 K/mm3 (0.9-3.2); Lymphocytes Percent Auto 8.4 % (18.3-44.2); Mean Corpuscular Hemoglobin 27.9 pg (26-34); Mean Corpuscular Volume 99.7 fl (80-100); Mean Platelet Volume 12.2 fl (7.4-10.4); Monocytes Absolute Auto 0.6 K/mm3 (0.1-0.6); Monocytes Percent Auto 8.6 % (2.6-8.5); Neutrophils Absolute Auto 5.5 K/mm3 (1.3-6.7); Neutrophils Percent Auto 79.4 % (45.5-73.1); Platelet Count Result 197 k/mm3 (150-375); Red Blood Count 3.12 M/mm3 (4.2-5.4); Red Cell Distribution Width 14.6 % (11.5-14.5); White Blood Count 6.9 K/mm3 (4.5-10.0)
[2020-11-24 05:56] LABS: Blood Urea Nitrogen 51 mg/dL (7-17); Calcium 7.7 mg/dL (8.4-10.2); Carbon Dioxide > 40 mmol/L (22-30); Chloride 97 mmol/L (98-107); Estimated CRCL calculation 33 ml/min; Estimated Glomerular Filt Rate 34; Glucose 122 mg/dL (65-105); Potassium 3.9 mmol/L (3.4-5.0); Sodium 141 mmol/L (137-145)
[2020-11-24] MEDS: BUDESONIDE RESPULE NEB 0.5 MG/2 ML AMP 1 MG INHALATION ×2 (07:14→20:12)
[2020-11-24] MEDS: hydrALAZINE HCL 25 MG TABLET PO (09:09)
[2020-11-24] MEDS: POTASSIUM CHLORIDE 20 MEQ TABLET.ER 40 MEQ PO (09:09)
[2020-11-24] MEDS: FERROUS SULFATE 324 MG TABLET PO ×2 (09:09→16:59)
[2020-11-24] MEDS: CLOPIDOGREL BISULFATE 75 MG TABLET PO (09:10)
[2020-11-24] MEDS: amLODIPine BESYLATE 5 MG TABLET PO (09:10)
[2020-11-24] MEDS: COLCHICINE 0.6 MG TABLET PO ×2 (09:10→16:59)
[2020-11-24] MEDS: ATORVASTATIN 40 MG TABLET 80 MG PO (09:10)
[2020-11-24] MEDS: APIXABAN 5 MG TABLET PO ×2 (09:10→20:23)
[2020-11-24] MEDS: FENOFIBRATE NANOCRYSTALLIZED 145 MG TABLET PO (09:10)
[2020-11-24] MEDS: calcitrioL 0.25 MCG CAPSULE PO (09:10)
[2020-11-24] MEDS: SACCHAROMYCES BOULARDII 250 MG CAPSULE PO ×2 (09:11→16:59)
[2020-11-24] MEDS: MAGNESIUM OXIDE 400 MG TABLET PO (09:11)
[2020-11-24] MEDS: ISOSORBIDE MONONITRATE 30 MG TAB.ER.24H PO (09:11)
[2020-11-24] MEDS: PANTOPRAZOLE 40 MG TABLET PO (09:11)
[2020-11-24] MEDS: LIDOCAINE 5% PATCH 1 PATCH TRANSDERM (09:11)
[2020-11-24] MEDS: PREGABALIN (*CRX) 50 MG CAPSULE 200 MG PO ×2 (09:11→16:59)
[2020-11-24] MEDS: FUROSEMIDE INJ 40 MG/4 ML VIAL IV PUSH (09:11)
--- NOTE | 2020-11-24 09:11 | PM.PNPUL ---
Progress Note: A&P Assessment and Plan (1) Aspiration pneumonia: Qualifiers: Aspiration pneumonia type: unspecified Laterality: bilateral Lung location: lower lobe of lung Qualified Code(s): J69.0 - Pneumonitis due to inhalation of food and vomit Code(s): J69.0 - Pneumonitis due to inhalation of food and vomit Status: Acute Assessment and Plan: Continue Unasyn 3 g IV q.6 hours for a total of 7 days. Can switch to Augmentin if clinically improving and ready for discharge. Swallow evaluation by speech pathology has been ordered. Cornet flutter valve q.2 hours while awake consider decreasing dose of diuretics. (2) Chronic respiratory failure with hypoxia: Code(s): J96.11 - Chronic respiratory failure with hypoxia Status: Acute (3) COPD exacerbation: Code(s): J44.1 - Chronic obstructive pulmonary disease with (acute) exacerbation Status: Acute Assessment and Plan: Consider switching from carvedilol to a more selective beta-rafa such as metoprolol as non selective beta-blockers can worsen bronchoconstriction in patients with moderate to severe asthma and COPD Continue Pulmicort 0.5 mg q.12 hours nebulized Continue ipratropium 0.5 mg q.6 hours nebulized Continue albuterol 2.5 mg Q 6 hours p.r.n. Discontinue all systemic steroids today, no need for tapering (4) RONAL (obstructive sleep apnea): Code(s): G47.33 - Obstructive sleep apnea (adult) (pediatric) Status: Acute Assessment and Plan: will change BiPAP to 20/15 cm H2O with 2 L of oxygen bleed in q.h.s. and while sleeping (5) Coag negative Staphylococcus bacteremia: Code(s): R78.81 - Bacteremia; B95.7 - Other staphylococcus as the cause of diseases classified elsewhere Status: Acute Assessment and Plan: Continue vancomycin per ID recommendations for a total of [address] Sommers's support. Subjective Date/time seen: 11/24/20 09:11 Interval history: no significant pulmonary complaints today she continues to have a bit of wheezing but overall is improving. Review of Systems Review of Systems: All systems reviewed & are unremarkable except as noted in HPI and below Exam Const: General: comfortable, no acute distress, alert, awake and other (Who chronically looking) Nutritional Appearance: average body habitus and overweight Orientation/consciousness: patient oriented x3 HENMT: Head: normal to inspection, normocephalic and atraumatic Ears: hearing grossly normal bilaterally Face and sinus: normal facial exam Eyes: General: appearance normal, both eyes and all related structures Pupils: Equal, round and reactive pupils present EOM: EOMs intact bilaterally Neck: Neck: full ROM, no lymphadenopathy and no JVD Thyroid: thyroid normal Lymphatic: no lymphadenopathy noted Resp: Effort & Inspection: normal respiratory effort and able to speak in complete sentences Auscultation: wheezes expiratory wheezes and diminished lung sounds Cardio: Jugular venous distension: no JVD Rate: regular rate Rhythm: regular rhythm Heart sounds: S1 normal heart sound present and S2 normal heart sound present GI: GI Palp: Yes Soft to palpation and Yes No hepatosplenomegaly present : General: Yes deferred Skin: Rashes: no rashes Wounds: no wounds Neuro: General: patient oriented x3 and CN's II-XI intact bilaterally Cranial nerves: Yes CN's II-XII intact bilaterally and Yes Equal, round and reactive pupils present Cognition (Neuro): normal cognition Speech: normal speech Gait exam (Neuro): Normal gait present Motor exam (neuro): 5/5 motor strength present throughout Extrem: General: normal to inspection, full ROM, no joint enlargement and no pedal edema Objective Data Vital Signs Vital Signs: Vital Signs - 24 hr 11/23/20 09:17 11/23/20 12:00 11/23/20 13:31 Temperature Pulse Rate 97 97 94 Respiratory Rate 18 Blood Pressure Pulse Oximetry 0
[2020-11-24] MEDS: carvediloL 3.125 MG TABLET PO ×2 (09:12→20:21)
[2020-11-24] MEDS: EUCERIN CREAM 120 GM JAR 1 APPLIC TOPICAL (09:13)
[2020-11-24] MEDS: TOLNAFTATE 1% POWDER 45 GM BTL 1 APPLIC TOPICAL ×2 (09:13→20:23)
[2020-11-24] MEDS: ACETAMINOPHEN 325 MG TABLET 650 MG PO ×2 (09:14→20:22)
[2020-11-24 09:16] LABS: Glucose Point of Care 99 (65-105)
[2020-11-24] MEDS: INSULIN GLARGINE (*BKC) 100 UNITS/ML 10 UNITS SUB-Q (09:17)
[2020-11-24] MEDS: TIZANIDINE HCL 4 MG TABLET PO ×2 (09:19→20:22)
--- NOTE | 2020-11-24 09:53 | PM.IMPN ---
Progress Note: A&P Assessment and Plan (1) Aspiration pneumonia: Qualifiers: Aspiration pneumonia type: unspecified Laterality: bilateral Lung location: lower lobe of lung Qualified Code(s): J69.0 - Pneumonitis due to inhalation of food and vomit Code(s): J69.0 - Pneumonitis due to inhalation of food and vomit Status: Acute Assessment and Plan: Clinically patient is improving. Will repeat chest x-ray in the morning. Will continue with IV antibiotics (2) Insulin dependent diabetes mellitus: Status: Acute Assessment and Plan: 1800 calorie restricted carb consist Accu-Cheks a.c. and HS insulin sliding scale as needed (3) Multilobar lung infiltrate: Code(s): R91.8 - Other nonspecific abnormal finding of lung field Status: Acute Assessment and Plan: Clinically improving. Will continue nebulizer treatment. Continue antibiotics. Repeat chest x-ray in the morning. (4) CKD (chronic kidney disease): Code(s): N18.9 - Chronic kidney disease, unspecified Status: Acute Assessment and Plan: continue to monitor or BUN and creatinine (5) Chronic respiratory failure with hypoxia: Code(s): J96.11 - Chronic respiratory failure with hypoxia Status: Acute Assessment and Plan: on supplemental O2 appreciate pulmonology note EF low to 35 %, comapared to one from jun 2020. consulted cardiology. apprecaite their recs (6) Acute on chronic diastolic CHF (congestive heart failure): Code(s): I50.33 - Acute on chronic diastolic (congestive) heart failure Status: Acute Assessment and Plan: iv lasix. cardiology on board. (7) RONAL (obstructive sleep apnea): Code(s): G47.33 - Obstructive sleep apnea (adult) (pediatric) Status: Acute Assessment and Plan: continue CPAP (8) Atrial fibrillation: Code(s): I48.91 - Unspecified atrial fibrillation Status: Acute Assessment and Plan: rate controlled. aon apixaban for anticoagulation (9) Insulin dependent type 2 diabetes mellitus: Code(s): E11.9 - Type 2 diabetes mellitus without complications; Z79.4 - [facility] (current) use of insulin Status: Acute Assessment and Plan: continue to monitor with steorid noted hyperglycemia. now steroid is off. hyperglycemia improved. lantus 10 units bid. ssi. adjust insulin as needed (10) Hypertension: Qualifiers: Hypertension type: unspecified Qualified Code(s): I10 - Essential (primary) hypertension Code(s): I10 - Essential (primary) hypertension Status: Chronic Assessment and Plan: continue home med well controlled (11) Coag negative Staphylococcus bacteremia: Code(s): R78.81 - Bacteremia; B95.7 - Other staphylococcus as the cause of diseases classified elsewhere Status: Acute Assessment and Plan: Infectious disease consult noted, will continue antibiotics. (12) Atrial fibrillation with controlled ventricular response: Code(s): I48.91 - Unspecified atrial fibrillation Status: Acute Assessment and Plan: Rate controlled on current medications. Additional Plan Clinically patient is feeling much better. Will repeat chest x-ray and labs in the morning. C diff is negative. Will increase activity. Subjective Date/time seen: 11/24/20 09:53 Interval history: Patient was seen during the morning rounds today. Patient breathing is better slightly, has mild wheezing. No chest pain. Diarrhea frequency has decreased. No nausea or vomiting. Mood stable. Review of Systems Review of Systems: All systems reviewed & are unremarkable except as noted in HPI and below ( HPI) Constitutional: Constitutional: Denies chills, Reports fatigue, Reports lethargy and Reports weakness Eyes: Eyes: Denies blurry vision and Denies photophobia ENT: Denies epistaxis, Denies nasal discharge and Denies neck pain Cardiovascular:
--- NOTE | 2020-11-24 12:15 | PC.NURSE ---
Patient states she feels nauseated. Patient vomited small amount of bile colored emesis. States she doesn't feel good . When asked to specify her complaints, patient states my chest is burning . VS obtained and remain stable. Patient is on telemetry and remains in Afib with controlled rate. No respiratory distress noted. Called Dr. Nicholson and notified him of incident. Orders received for Zofran IVP prn.
[2020-11-24 12:41] LABS: Glucose Point of Care 221 (65-105)
[2020-11-24] MEDS: INSULIN ASPART (*BKC) 100 UNITS/ML SUB-Q (12:43)
[2020-11-24] MEDS: ONDANSETRON INJ 4 MG/2 ML VIAL IV PUSH (12:43)
[2020-11-24 16:15] LABS: Glucose Point of Care 48 (65-105)
[2020-11-24] MEDS: DEXTROSE 50% 25 GM/50 ML SYRINGE IV PUSH ×2 (16:19→16:58)
[2020-11-24 16:46] LABS: Glucose Point of Care 74 (65-105)
--- NOTE | 2020-11-24 17:17 | PC.NURSE ---
Patient with audible wheezing and increased congestion. Breath sounds coarse. Increased dyspnea noted. Up to chair and wearing O2 at 2 liters per nasal cannula. O2 sat 91-92% on 2 liters per nasal cannula. Called Dr. Nicholson and orders received.
[2020-11-24 17:24] LABS: Glucose Point of Care 97 (65-105)
[2020-11-24] MEDS: FUROSEMIDE INJ 40 MG/4 ML VIAL 20 MG IV PUSH (17:33)
[2020-11-24 21:11] LABS: Glucose Point of Care 138 (65-105)
[2020-11-25] VITALS (21 sets, daily range): BP systolic 116–119; BP diastolic 55–70; PULSE 60–81; RESP 16–26; TEMP 35.8–36.6; O2SAT 95–99
[2020-11-25] MEDS: IPRATROPIUM BR 0.02% INH SOLN 0.5 MG/2.5 ML VIAL INHALATION ×4 (01:24→19:36)
[2020-11-25] MEDS: AMPICILLIN SULB 3 GM/NS 100 ML 3 GM/100 ML VIAL IVPB ×4 (06:07→23:39)
[2020-11-25] MEDS: LOPERAMIDE HCL 2 MG CAPSULE PO ×3 (06:07→18:48)
[2020-11-25] MEDS: ACETAMINOPHEN 325 MG TABLET 650 MG PO ×3 (06:12→16:51)
[2020-11-25] MEDS: TIZANIDINE HCL 4 MG TABLET PO ×3 (06:12→21:39)
[2020-11-25 06:33] LABS: Hematocrit 32.6 % (37.0-47.0); Hemoglobin 9.3 g/dL (12.0-15.0); Mean Corpuscular HGB Conc 28.5 g/dl (32-36); Mean Corpuscular Hemoglobin 28.4 pg (26-34); Mean Corpuscular Volume 99.7 fl (80-100); Mean Platelet Volume 11.4 fl (7.4-10.4); Platelet Count Result 210 k/mm3 (150-375); Red Blood Count 3.27 M/mm3 (4.2-5.4); Red Cell Distribution Width 14.5 % (11.5-14.5); White Blood Count 6.1 K/mm3 (4.5-10.0)
[2020-11-25 06:39] LABS: Alanine Aminotransferase 31 U/L (4-35); Albumin Level 3.2 g/dL (3.5-5.1); Alkaline Phosphatase 43 U/L (38-126); Aspartate Amino Transferase 24 U/L (14-36); Bilirubin,Total 0.3 mg/dL (0.2-1.3); Blood Urea Nitrogen 46 mg/dL (7-17); Calcium 7.9 mg/dL (8.4-10.2); Carbon Dioxide > 40 mmol/L (22-30); Chloride 96 mmol/L (98-107); Estimated CRCL calculation 30 ml/min; Estimated Glomerular Filt Rate 29; Glucose 70 mg/dL (65-105); Potassium 4.1 mmol/L (3.4-5.0); Sodium 142 mmol/L (137-145)
[2020-11-25] MEDS: BUDESONIDE RESPULE NEB 0.5 MG/2 ML AMP 1 MG INHALATION (08:02)
[2020-11-25] MEDS: LIDOCAINE 5% PATCH 1 PATCH TRANSDERM (08:20)
[2020-11-25] MEDS: POTASSIUM CHLORIDE 20 MEQ TABLET.ER 40 MEQ PO (08:20)
[2020-11-25] MEDS: ATORVASTATIN 40 MG TABLET 80 MG PO (08:20)
[2020-11-25] MEDS: MAGNESIUM OXIDE 400 MG TABLET PO (08:21)
[2020-11-25] MEDS: PREGABALIN (*CRX) 50 MG CAPSULE 200 MG PO ×2 (08:21→16:51)
[2020-11-25] MEDS: PANTOPRAZOLE 40 MG TABLET PO (08:21)
[2020-11-25] MEDS: calcitrioL 0.25 MCG CAPSULE PO (08:21)
[2020-11-25] MEDS: FERROUS SULFATE 324 MG TABLET PO ×2 (08:21→16:36)
[2020-11-25] MEDS: APIXABAN 5 MG TABLET PO ×2 (08:21→21:39)
[2020-11-25] MEDS: FENOFIBRATE NANOCRYSTALLIZED 145 MG TABLET PO (08:21)
[2020-11-25] MEDS: CLOPIDOGREL BISULFATE 75 MG TABLET PO (08:21)
[2020-11-25] MEDS: amLODIPine BESYLATE 5 MG TABLET PO (08:21)
[2020-11-25] MEDS: SACCHAROMYCES BOULARDII 250 MG CAPSULE PO ×2 (08:21→16:36)
[2020-11-25] MEDS: ISOSORBIDE MONONITRATE 30 MG TAB.ER.24H PO (08:21)
[2020-11-25] MEDS: hydrALAZINE HCL 25 MG TABLET PO ×2 (08:21→16:36)
[2020-11-25] MEDS: COLCHICINE 0.6 MG TABLET PO ×2 (08:22→16:36)
[2020-11-25] MEDS: FUROSEMIDE INJ 40 MG/4 ML VIAL IV PUSH (08:22)
[2020-11-25] MEDS: TOLNAFTATE 1% POWDER 45 GM BTL 1 APPLIC TOPICAL ×2 (08:23→21:40)
[2020-11-25] MEDS: carvediloL 3.125 MG TABLET PO ×2 (08:23→21:39)
[2020-11-25] MEDS: EUCERIN CREAM 120 GM JAR 1 APPLIC TOPICAL (08:28)
[2020-11-25 09:28] LABS: Glucose Point of Care 70 (65-105)
--- NOTE | 2020-11-25 10:25 | PM.PNPUL ---
Progress Note: A&P Assessment and Plan (1) Aspiration pneumonia: Qualifiers: Aspiration pneumonia type: unspecified Laterality: bilateral Lung location: lower lobe of lung Qualified Code(s): J69.0 - Pneumonitis due to inhalation of food and vomit Code(s): J69.0 - Pneumonitis due to inhalation of food and vomit Status: Acute Assessment and Plan: 11/24 Continue Unasyn 3 g IV q.6 hours for a total of 7 days. Can switch to Augmentin if clinically improving and ready for discharge. Swallow evaluation by speech pathology has been ordered. Cornet flutter valve q.2 hours while awake. (2) Coag negative Staphylococcus bacteremia: Code(s): R78.81 - Bacteremia; B95.7 - Other staphylococcus as the cause of diseases classified elsewhere Status: Acute Assessment and Plan: ID consult appreciated, on Vanco and unasyn for now. (3) RONAL (obstructive sleep apnea): Code(s): G47.33 - Obstructive sleep apnea (adult) (pediatric) Status: Acute Assessment and Plan: Patient with outpatient sleep study on 08/27/20 with BiPAP 17/13 and average AHI of 57, and has been started on AVAPS-AE since then. Awaiting download. On BiPAP / in house now but not tolerating mask, will use home machine once arrives. (4) Respiratory failure with hypoxia and hypercapnia: Code(s): J96.91 - Respiratory failure, unspecified with hypoxia; J96.92 - Respiratory failure, unspecified with hypercapnia Status: Acute Assessment and Plan: Baseline blood gas on 08/12/2020 of 7.38/68/70 on 3 L nasal cannula. Last admission 09/11/2020 was discharged on Noninvasive ventilation with AVAPS-AE when sleeps with settings per DME (rate auto, TV 350, EPAP min 4, EPAP max 10, PSV min 4, PSV max 25, max pressure 25, AVAPS rate (rise) 1 (slowest), inspiratory time: auto, 5 L bleed in. On these settings her ABG at end of night on 2 L bleed in was 7.41/61/66. This admission Bicarb > 40 and ABG on 4L 7.47/46/75 in ED. 11/25 [place] [facility] [place] and [place]. I spoke with Kenzie who will bring in patients home machine so taht she can wear it tonight. Will check ABG inmorning. (5) COPD exacerbation: Code(s): J44.1 - Chronic obstructive pulmonary disease with (acute) exacerbation Status: Acute Assessment and Plan: 11/24 Consider switching from carvedilol to a more selective beta-rafa such as metoprolol as non selective beta-blockers can worsen bronchoconstriction in patients with moderate to severe asthma and COPD Continue Pulmicort 0.5 mg q.12 hours nebulized, Continue ipratropium 0.5 mg q.6 hours nebulized, Continue albuterol 2.5 mg Q 6 hours p.r.n. (not standing as has AFIB). recommend changing to metoprolol. Discontinue all systemic steroids on 11/24 11/25 Continue symbicort 160/4.5 2 puffs Q 12, Ipratroprium 0.5 mg neb Q 6, and albuterol neb PRN. DC budesonide neb as on symbicort. Recommend changing from carvedilol to selective beta 1 rafa metoprolol, cardiology following. Subjective Date/time seen: 11/25/20 10:25 Interval history: From previous admit 09/06/2020. Patient is a 80-year-old female with a history of hypertension, type 2 diabetes, COPD with home O2 use at 2-3 L, no PFTs available, Chronic CO2 retention with a baseline blood gas on 08/12/2020 of 7.38/68/70 on 3 L nasal cannula,pulmonary hypertension with a estimated pulmonary pressure of 60 on echocardiogram from 06/07/2020 and mild centrilobular emphysema on her CT scan of the chest from 08/13/2020. The patient also has obstructive sleep apnea with a split night polysomnogram on 08/27/2020 with preliminary results demonstrating an apnea-hypopnea index of 28.8. Patient had difficulty titrating her BiPAP settings in the laboratory but her best pressures were 17/13 with 2 L bleed in. Patient also has a history of CAD disease status post non ST elevation [place] on 06/07/2020 with a mid LAD stent on placed on 06/13/2020. [place]
[2020-11-25 12:17] LABS: Glucose Point of Care 119 (65-105)
--- NOTE | 2020-11-25 12:20 | PCNWS ---
Weekly nutritional screen. Patient is tolerating current diet with adequate intake. NO weight loss reported. No nutritional needs at this time.
--- NOTE | 2020-11-25 13:51 | PM.IMPN ---
Progress Note: A&P Assessment and Plan (1) Aspiration pneumonia: Qualifiers: Aspiration pneumonia type: unspecified Laterality: bilateral Lung location: lower lobe of lung Qualified Code(s): J69.0 - Pneumonitis due to inhalation of food and vomit Code(s): J69.0 - Pneumonitis due to inhalation of food and vomit Status: Acute Assessment and Plan: Clinically patient is improving. Will repeat chest x-ray in the morning. Will continue with IV antibiotics 11/25/20 13:51 80-year-old female being treated with aspiration pneumonia being treated with Unasyn 3 g every 6 hours, states feeling little better chest x-ray on 11/22 showed left lower lobe infiltrate and consolidation, repeat chest x-ray showed improvement seen by pulmonology concerned patient is not wearing her BiPAP and will bring BiPAP from home by her family, will continue present managed appreciate input a chief psychology and further recommendation to follow. (2) Insulin dependent diabetes mellitus: Status: Acute Assessment and Plan: 1800 calorie restricted carb consist Accu-Cheks a.c. and HS insulin sliding scale as needed (3) Multilobar lung infiltrate: Code(s): R91.8 - Other nonspecific abnormal finding of lung field Status: Acute Assessment and Plan: Clinically improving. Will continue nebulizer treatment. Continue antibiotics. Repeat chest x-ray in the morning. (4) CKD (chronic kidney disease): Code(s): N18.9 - Chronic kidney disease, unspecified Status: Acute Assessment and Plan: continue to monitor or BUN and creatinine (5) Chronic respiratory failure with hypoxia: Code(s): J96.11 - Chronic respiratory failure with hypoxia Status: Acute Assessment and Plan: on supplemental O2 appreciate pulmonology note EF low to 35 %, comapared to one from jun 2020. consulted cardiology. apprecaite their recs (6) Acute on chronic diastolic CHF (congestive heart failure): Code(s): I50.33 - Acute on chronic diastolic (congestive) heart failure Status: Acute Assessment and Plan: iv lasix. cardiology on board. (7) RONAL (obstructive sleep apnea): Code(s): G47.33 - Obstructive sleep apnea (adult) (pediatric) Status: Acute Assessment and Plan: continue CPAP (8) Atrial fibrillation: Code(s): I48.91 - Unspecified atrial fibrillation Status: Acute Assessment and Plan: rate controlled. aon apixaban for anticoagulation (9) Insulin dependent type 2 diabetes mellitus: Code(s): E11.9 - Type 2 diabetes mellitus without complications; Z79.4 - [facility] (current) use of insulin Status: Acute Assessment and Plan: continue to monitor with steorid noted hyperglycemia. now steroid is off. hyperglycemia improved. lantus 10 units bid. ssi. adjust insulin as needed (10) Hypertension: Qualifiers: Hypertension type: unspecified Qualified Code(s): I10 - Essential (primary) hypertension Code(s): I10 - Essential (primary) hypertension Status: Chronic Assessment and Plan: continue home med well controlled (11) Coag negative Staphylococcus bacteremia: Code(s): R78.81 - Bacteremia; B95.7 - Other staphylococcus as the cause of diseases classified elsewhere Status: Acute Assessment and Plan: Infectious disease consult noted, will continue antibiotics. (12) Atrial fibrillation with controlled ventricular response: Code(s): I48.91 - Unspecified atrial fibrillation Status: Acute Assessment and Plan: Rate controlled on current medications. Additional Plan Clinically patient is feeling much better. Will repeat chest x-ray and labs in the morning. C diff is negative. Will increase activity. Subjective Date/time seen: 11/25/20 13:51 80-year-old female being treated with aspiration pneumonia being treated with Unasyn 3 g every 6 hours, states feeli
[2020-11-25 16:22] LABS: Vancomycin Trough 11.4 ug/mL (10.0-20.0)
[2020-11-25] MEDS: INSULIN GLARGINE (*BKC) 100 UNITS/ML 10 UNITS SUB-Q (16:44)
[2020-11-25 17:29] LABS: Glucose Point of Care 152 (65-105)
[2020-11-25 19:33] LABS: Glucose Point of Care 174 (65-105)
[2020-11-25] MEDS: ALBUTEROL SULFATE NEB 2.5 MG/0.5 ML INH INHALATION (19:36)
--- NOTE | 2020-11-25 23:13 | PM.PNCARD ---
Progress Note: A&P Assessment and Plan (1) CHF (congestive heart failure): Code(s): I50.9 - Heart failure, unspecified Status: Acute Assessment and Plan: Her ECHO done few days ago and read by Dr. Quintana suggest moderate LV systolic dysfunction (LVEF 35%). Previous ECHO showed normal LV systolic function and diastolic dysfunction.Itwas done in 06/18. Pt had COVID pneumonia in Jul 2020. 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 Not on ACEI due to CRF She may benefit from further cardiac evaluation on outpatient basis when recovers from current medical condition (2) Aspiration pneumonia: Qualifiers: Aspiration pneumonia type: unspecified Laterality: bilateral Lung location: lower lobe of lung Qualified Code(s): J69.0 - Pneumonitis due to inhalation of food and vomit Code(s): J69.0 - Pneumonitis due to inhalation of food and vomit Status: Acute (3) Insulin dependent diabetes mellitus: Status: Acute (4) CKD (chronic kidney disease): Code(s): N18.9 - Chronic kidney disease, unspecified Status: Acute (5) Atrial fibrillation with controlled ventricular response: Code(s): I48.91 - Unspecified atrial fibrillation Status: Acute Assessment and Plan: Pt is in AFIB HR well controlled cont current meds including anticoagulation Subjective Date/time seen: 11/25/20 23:13 Objective Data Vital Signs Vital Signs: Vital Signs - 24 hr 11/25/20 00:00 11/25/20 01:32 11/25/20 01:39 Temperature Pulse Rate 69 60 72 Respiratory Rate 20 20 Blood Pressure Pulse Oximetry 11/25/20 04:00 11/25/20 06:00 11/25/20 08:00 Temperature 36.0 C L Pulse Rate 66 72 68 Respiratory Rate 20 Blood Pressure 119/55 L Pulse Oximetry 97 11/25/20 08:04 11/25/20 08:15 11/25/20 08:23 Temperature Pulse Rate 67 81 60 Respiratory Rate 18 18 Blood Pressure Pulse Oximetry 11/25/20 12:00 11/25/20 14:00 11/25/20 14:27 Temperature 35.8 C L Pulse Rate 75 78 79 Respiratory Rate 16 18 Blood Pressure 116/57 L Pulse Oximetry 96 11/25/20 16:00 11/25/20 19:40 11/25/20 19:46 Temperature Pulse Rate 79 72 68 Respiratory Rate 22 H 26 H Blood Pressure Pulse Oximetry 99 11/25/20 20:00 11/25/20 20:41 11/25/20 21:01 Temperature 36.6 C Pulse Rate 69 64 77 Respiratory Rate 20 Blood Pressure 116/70 Pulse Oximetry 96 96 95 11/25/20 21:12 11/25/20 21:39 11/25/20 22:42 Temperature Pulse Rate 77 64 63 Respiratory Rate 22 H Blood Pressure Pulse Oximetry 97 Intake/Output Intake/Output: Intake & Output 11/22/20 11/23/20 11/24/20 11/25/20 23:59 23:59 23:59 23:59 Intake Total 2370 1770 2840 2790 Output Total 1600 300 900 300 Balance 770 1470 1940 2490 Meds/Results Medications: Active Medications Generic Name Dose Route Start Last Admin Trade Name Freq PRN Reason Stop Dose Admin Acetaminophen 650 mg 11/17/20 10:12 11/25/20 16:51 Acetaminophen 325 Mg Tablet PO 650 mg Q4H PRN Administration Pain Albuterol 2 puff 11/17/20 08:19 Albuterol Sulfate (*Sp) Aerosol 1 Puff INHALATION Q4-6H PRN Shortness Of Breath Albuterol 2.5 mg 11/19/20 10:32 11/25/20 19:36 Albuterol Sulfate Neb 2.5 Mg/0.5 Ml Inh INHALATION 2.5 mg Q6HRT PRN Administration Dyspnea Albuterol 4 puff 11/25/20 20:00 11/25/20 20:39 Albuterol Sulfate (*Sp) Aerosol 1 Puff INHALATION Not Given QIDRT [facility] Amlodipine Besylate 5 mg 11/17/20 09:00 11/25/20 08:21 Amlodipine Besylate 5 Mg Tablet PO 5 mg DAILY BEL Administration Apixaban 5 mg 11/17/20 09:00 11/25/20 21:39 Apixaban 5 Mg Tablet PO 5 mg Q12HR BEL Administration Atorvastatin Calcium 80 mg 11/17/20 09:00 11/25/20 08:20 Atorvastatin 40 Mg Tablet PO 80 mg DAILY BEL Administration Budesonide/Formoterol Fumarate 2 puff 11/25/20 21:10 11/25/20 21:12 Budesonide/Form 160-4.5 Mcg (*
[2020-11-26] VITALS (30 sets, daily range): BP systolic 98–118; BP diastolic 58–63; PULSE 52–81; RESP 16–20; TEMP 36.4–36.6; O2SAT 92–100
[2020-11-26] MEDS: ALBUTEROL SULFATE NEB 2.5 MG/0.5 ML INH INHALATION ×3 (01:55→20:42)
[2020-11-26] MEDS: IPRATROPIUM BR 0.02% INH SOLN 0.5 MG/2.5 ML VIAL INHALATION ×4 (01:55→20:41)
[2020-11-26] MEDS: NITROGLYCERIN SL 0.4 MG TABLET SUBLINGUAL ×2 (02:13→02:22)
--- NOTE | 2020-11-26 02:23 | PCRCNOTE ---
WENT AND GAVE PT A NEB AT 1:55 AM PT SAID SHE HAD SHARP CHEST PAIN TOOK OFF CPAP. CALLED RN AND PLACED BACK ON HER 2L NC AND GAVE NEB RN GAVE PT MEDS AND WE LEFT HER ON NC 2L. WE HAVE BEEN TAKING HER ON AND OFF OF HER OWN TRILOGY PLACED ON S9 PER PT REQUEST AND PT STILL NOT ABLE TO GET COMFORTABLE.
--- NOTE | 2020-11-26 02:29 | PC.NURSE ---
Pt states that chest pain is no longer sharp but is heavy but improved. Will continue to monitor.
--- NOTE | 2020-11-26 02:44 | PC.NURSE ---
PT SLEEPING AND HAS HAD NO FURTHER COMPLAINTS OF CHEST PAIN.
[2020-11-26 05:32] LABS: Hemoglobin 8.6 g/dL (12.0-15.0); Mean Corpuscular HGB Conc 29.7 g/dl (32-36); Mean Corpuscular Hemoglobin 28.5 pg (26-34); Mean Platelet Volume 12.1 fl (7.4-10.4); Platelet Count Result 179 k/mm3 (150-375); Red Blood Count 3.02 M/mm3 (4.2-5.4); Red Cell Distribution Width 14.8 % (11.5-14.5); White Blood Count 9.8 K/mm3 (4.5-10.0)
[2020-11-26] MEDS: AMPICILLIN SULB 3 GM/NS 100 ML 3 GM/100 ML VIAL IVPB (06:19)
[2020-11-26] MEDS: LOPERAMIDE HCL 2 MG CAPSULE PO ×2 (06:31→20:32)
[2020-11-26] MEDS: ACETAMINOPHEN 325 MG TABLET 650 MG PO ×4 (06:31→21:17)
[2020-11-26 06:43] LABS: Anion Gap 2 mmol/L (8-16); Blood Urea Nitrogen 50 mg/dL (7-17); Calcium 7.8 mg/dL (8.4-10.2); Carbon Dioxide 38 mmol/L (22-30); Chloride 99 mmol/L (98-107); Estimated CRCL calculation 36 ml/min; Estimated Glomerular Filt Rate 36; Glucose 68 mg/dL (65-105); Potassium 4.6 mmol/L (3.4-5.0); Sodium 139 mmol/L (137-145)
[2020-11-26] MEDS: FERROUS SULFATE 324 MG TABLET PO ×2 (08:41→17:20)
[2020-11-26] MEDS: PANTOPRAZOLE 40 MG TABLET PO (08:41)
[2020-11-26] MEDS: SACCHAROMYCES BOULARDII 250 MG CAPSULE PO ×2 (08:42→17:19)
[2020-11-26] MEDS: APIXABAN 5 MG TABLET PO ×2 (08:42→20:27)
[2020-11-26] MEDS: carvediloL 3.125 MG TABLET PO (08:42)
[2020-11-26] MEDS: CLOPIDOGREL BISULFATE 75 MG TABLET PO (08:42)
[2020-11-26] MEDS: COLCHICINE 0.6 MG TABLET PO ×2 (08:42→17:20)
[2020-11-26] MEDS: ISOSORBIDE MONONITRATE 30 MG TAB.ER.24H PO (08:42)
[2020-11-26] MEDS: amLODIPine BESYLATE 5 MG TABLET PO (08:42)
[2020-11-26] MEDS: FENOFIBRATE NANOCRYSTALLIZED 145 MG TABLET PO (08:42)
[2020-11-26] MEDS: ATORVASTATIN 40 MG TABLET 80 MG PO (08:43)
[2020-11-26] MEDS: MAGNESIUM OXIDE 400 MG TABLET PO (08:43)
[2020-11-26] MEDS: hydrALAZINE HCL 25 MG TABLET PO ×2 (08:43→17:18)
[2020-11-26] MEDS: POTASSIUM CHLORIDE 20 MEQ TABLET.ER 40 MEQ PO (08:44)
[2020-11-26] MEDS: FUROSEMIDE INJ 40 MG/4 ML VIAL IV PUSH (08:44)
[2020-11-26] MEDS: TOLNAFTATE 1% POWDER 45 GM BTL 1 APPLIC TOPICAL ×2 (08:45→20:27)
[2020-11-26] MEDS: LIDOCAINE 5% PATCH 1 PATCH TRANSDERM (08:45)
[2020-11-26] MEDS: calcitrioL 0.25 MCG CAPSULE PO (08:52)
[2020-11-26] MEDS: EUCERIN CREAM 120 GM JAR 1 APPLIC TOPICAL (08:57)
[2020-11-26] MEDS: ALBUTEROL SULFATE (*SP) AEROSOL 1 PUFF 4 PUFF INHALATION (09:08)
[2020-11-26] MEDS: PREGABALIN (*CRX) 50 MG CAPSULE 200 MG PO ×2 (09:41→17:15)
--- NOTE | 2020-11-26 11:04 | PM.PNPUL ---
Progress Note: A&P Assessment and Plan (1) Aspiration pneumonia: Qualifiers: Aspiration pneumonia type: unspecified Laterality: bilateral Lung location: lower lobe of lung Qualified Code(s): J69.0 - Pneumonitis due to inhalation of food and vomit Code(s): J69.0 - Pneumonitis due to inhalation of food and vomit Status: Acute Assessment and Plan: 11/24 Continue Unasyn 3 g IV q.6 hours for a total of 7 days. DC on 11/26. Swallow evaluation by speech pathology has been performd on 11/19 and passed with recommendation eat independently and remain on current diet. Cornet flutter valve q.2 hours while awake. (2) Coag negative Staphylococcus bacteremia: Code(s): R78.81 - Bacteremia; B95.7 - Other staphylococcus as the cause of diseases classified elsewhere Status: Acute Assessment and Plan: ID consult appreciated, on Vanco through 11/30. (3) RONAL (obstructive sleep apnea): Code(s): G47.33 - Obstructive sleep apnea (adult) (pediatric) Status: Acute Assessment and Plan: 11/25 Patient with outpatient sleep study on 08/27/20 with BiPAP 17/13 and average AHI of 57, and has been started on AVAPS-AE since then. Awaiting download. On BiPAP in house now but not tolerating mask, will use home machine once arrives. 11/26 I received a download from 10/13/2020 through 11/11/2020 and the patient's settings are Evaps-AE, tidal volume 350, EPAP Min 4, EPAP max 10, pressure support Min 4, pressure support max 25, maximum pressure 35, rise time 1.0, breath rate auto, ramp length 20 minutes. On these settings the % of days used more than 4 hours was 80%. % of days used 93.3. The average use of all days was 6.1 hours And the average used per day used was 6.6 hours. Her average EPAP was 5.9, average IPAP was 24.9, average tidal volume 367 mL, average breaths per minute 17.5 average total leak 42 liters/minute. Will continue theses setting with 3 L bleed in and obtian ABG in morning prior to removal of NIV. (4) Respiratory failure with hypoxia and hypercapnia: Code(s): J96.91 - Respiratory failure, unspecified with hypoxia; J96.92 - Respiratory failure, unspecified with hypercapnia Status: Acute Assessment and Plan: Baseline blood gas on 08/12/2020 of 7.38/68/70 on 3 L nasal cannula. Last admission 09/11/2020 was discharged on Noninvasive ventilation with AVAPS-AE when sleeps with settings per DME (rate auto, TV 350, EPAP min 4, EPAP max 10, PSV min 4, PSV max 25, max pressure 25, AVAPS rate (rise) 1 (slowest), inspiratory time: auto, 5 L bleed in. On these settings her ABG at end of night on 2 L bleed in was 7.41/61/66. This admission Bicarb > 40 and ABG on 4L 7.47/46/75 in ED. 11/25 Awaiting download from DME to verify settings and usage. I spoke with Kenzie who will bring in patients home machine so taht she can wear it tonight. Will check ABG in morning. 11/26 See above settings and will check ABG in morning prior to removal of NIV. (5) COPD exacerbation: Code(s): J44.1 - Chronic obstructive pulmonary disease with (acute) exacerbation Status: Acute Assessment and Plan: 11/24 Consider switching from carvedilol to a more selective beta-rafa such as metoprolol as non selective beta-blockers can worsen bronchoconstriction in patients with moderate to severe asthma and COPD Continue Pulmicort 0.5 mg q.12 hours nebulized, Continue ipratropium 0.5 mg q.6 hours nebulized, Continue albuterol 2.5 mg Q 6 hours p.r.n. (not standing as has AFIB). recommend changing to metoprolol. Discontinue all systemic steroids on 11/24 11/25 Continue symbicort 160/4.5 2 puffs Q 12, Ipratroprium 0.5 mg neb Q 6, and albuterol neb PRN. DC budesonide neb as on symbicort. Recommend changing from carvedilol to selective beta 1 rafa metoprolol, cardiology following. 11/26 Continue symbicort 160/4.5 2 puffs Q 12, Ipratroprium 0.5 mg neb Q 6, and albuterol neb PRN. No wheezers. I have DC c
[2020-11-26 11:21] LABS: Glucose Point of Care 74 (65-105)
[2020-11-26] MEDS: TIZANIDINE HCL 4 MG TABLET PO ×3 (11:24→20:27)
[2020-11-26 11:50] LABS: Glucose Point of Care 126 (65-105)
--- NOTE | 2020-11-26 14:17 | PM.IMPN ---
Progress Note: A&P Assessment and Plan (1) Aspiration pneumonia: Qualifiers: Aspiration pneumonia type: unspecified Laterality: bilateral Lung location: lower lobe of lung Qualified Code(s): J69.0 - Pneumonitis due to inhalation of food and vomit Code(s): J69.0 - Pneumonitis due to inhalation of food and vomit Status: Acute Assessment and Plan: Clinically patient is improving. Will repeat chest x-ray in the morning. Will continue with IV antibiotics 11/26/20 14:17 80-year-old female being treated with aspiration pneumonia being treated with Unasyn 3 g every 6 hours, states feeling little better chest x-ray on 11/22 showed left lower lobe infiltrate and consolidation, repeat chest x-ray showed improvement seen by pulmonology concerned patient is not wearing her BiPAP and will bring BiPAP from home by her family, will continue present managed appreciate input a supervisor [employer] and further recommendation to follow. 11/26 patient family had brought trilogy from and patient more last night but states this morning this see does not feel well as the trilogy was not working very well, patient was seen pulmonology and review of the data from the trilogy recommended to continue new settings, repeat chest x-ray on 11/25 showed improvement in pneumonia patient is being treated with Unasyn for aspiration pneumonia will continue present and further recommendation to follow. (2) Insulin dependent diabetes mellitus: Status: Acute Assessment and Plan: 1800 calorie restricted carb consist Accu-Cheks a.c. and HS insulin sliding scale as needed (3) Multilobar lung infiltrate: Code(s): R91.8 - Other nonspecific abnormal finding of lung field Status: Acute Assessment and Plan: Clinically improving. Will continue nebulizer treatment. Continue antibiotics. Repeat chest x-ray in the morning. (4) CKD (chronic kidney disease): Code(s): N18.9 - Chronic kidney disease, unspecified Status: Acute Assessment and Plan: continue to monitor or BUN and creatinine (5) Chronic respiratory failure with hypoxia: Code(s): J96.11 - Chronic respiratory failure with hypoxia Status: Acute Assessment and Plan: on supplemental O2 appreciate pulmonology note EF low to 35 %, comapared to one from jun 2020. consulted cardiology. apprecaite their recs (6) Acute on chronic diastolic CHF (congestive heart failure): Code(s): I50.33 - Acute on chronic diastolic (congestive) heart failure Status: Acute Assessment and Plan: iv lasix. cardiology on board. (7) RONAL (obstructive sleep apnea): Code(s): G47.33 - Obstructive sleep apnea (adult) (pediatric) Status: Acute Assessment and Plan: continue CPAP (8) Atrial fibrillation: Code(s): I48.91 - Unspecified atrial fibrillation Status: Acute Assessment and Plan: rate controlled. 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 now steroid is off. hyperglycemia improved. lantus 10 units bid. ssi. adjust insulin as needed (10) Hypertension: Qualifiers: Hypertension type: unspecified Qualified Code(s): I10 - Essential (primary) hypertension Code(s): I10 - Essential (primary) hypertension Status: Chronic Assessment and Plan: continue home med well controlled (11) Coag negative Staphylococcus bacteremia: Code(s): R78.81 - Bacteremia; B95.7 - Other staphylococcus as the cause of diseases classified elsewhere Status: Acute Assessment and Plan: Infectious disease consult noted, will continue antibiotics. (12) Atrial fibrillation with controlled ventricular response: C
[2020-11-26 16:55] LABS: Glucose Point of Care 67 (65-105)
[2020-11-26 19:37] LABS: Glucose Point of Care 102 (65-105)
[2020-11-26] MEDS: METOPROLOL TARTRATE 6.25 MG TABLET PO (20:27)
[2020-11-26] MEDS: ONDANSETRON INJ 4 MG/2 ML VIAL IV PUSH (21:17)
[2020-11-26 21:40] LABS: Glucose Point of Care 137 (65-105)
[2020-11-27] VITALS (22 sets, daily range): BP systolic 112–130; BP diastolic 69–77; PULSE 47–78; RESP 17–20; TEMP 36.3–36.7; O2SAT 93–100
[2020-11-27] MEDS: IPRATROPIUM BR 0.02% INH SOLN 0.5 MG/2.5 ML VIAL INHALATION ×4 (02:43→20:53)
[2020-11-27] MEDS: ALBUTEROL SULFATE NEB 2.5 MG/0.5 ML INH INHALATION ×2 (02:43→20:53)
--- NOTE | 2020-11-27 04:14 | PCRCNOTE ---
Patient has an abg ordered for the morning of 11/27/20. However, it is only supposed to be done if pt has worn her home Trilogy for 4 consecutive hours. She has not been compliant with her home unit last night/this morning. She came off for a break around 0150 and did not want to go back on. Efforts were made to encourage the use of her machine, although not successful.
[2020-11-27 05:52] LABS: Hematocrit 29.9 % (37.0-47.0); Hemoglobin 8.6 g/dL (12.0-15.0); Mean Corpuscular HGB Conc 28.8 g/dl (32-36); Mean Corpuscular Hemoglobin 28.1 pg (26-34); Mean Corpuscular Volume 97.7 fl (80-100); Mean Platelet Volume 12.4 fl (7.4-10.4); Platelet Count Result 172 k/mm3 (150-375); Red Blood Count 3.06 M/mm3 (4.2-5.4); Red Cell Distribution Width 15.2 % (11.5-14.5)
[2020-11-27 06:19] LABS: Blood Urea Nitrogen 41 mg/dL (7-17); Calcium 7.9 mg/dL (8.4-10.2); Carbon Dioxide > 40 mmol/L (22-30); Chloride 94 mmol/L (98-107); Estimated CRCL calculation 31 ml/min; Estimated Glomerular Filt Rate 29; Glucose 105 mg/dL (65-105); Potassium 4.4 mmol/L (3.4-5.0); Sodium 137 mmol/L (137-145)
--- NOTE | 2020-11-27 07:26 | PM.PNPUL ---
Progress Note: A&P Assessment and Plan (1) Aspiration pneumonia: Qualifiers: Aspiration pneumonia type: unspecified Laterality: bilateral Lung location: lower lobe of lung Qualified Code(s): J69.0 - Pneumonitis due to inhalation of food and vomit Code(s): J69.0 - Pneumonitis due to inhalation of food and vomit Status: Acute Assessment and Plan: 11/24 S/P Unasyn 3 g IV q.6 hours for a total of 7 days. DC on 11/26. Swallow evaluation by speech pathology has been performd on 11/19 and passed with recommendation eat independently and remain on current diet. Cornet flutter valve q.2 hours while awake. (2) Coag negative Staphylococcus bacteremia: Code(s): R78.81 - Bacteremia; B95.7 - Other staphylococcus as the cause of diseases classified elsewhere Status: Acute Assessment and Plan: ID consult appreciated, on Vanco through 11/30. (3) RONAL (obstructive sleep apnea): Code(s): G47.33 - Obstructive sleep apnea (adult) (pediatric) Status: Acute Assessment and Plan: 11/25 Patient with outpatient sleep study on 08/27/20 with BiPAP and average AHI of 57, and has been started on AVAPS-AE since then. Awaiting download. On BiPAP in house now but not tolerating mask, will use home machine once arrives. 11/26 I received a download from 10/13/2020 through 11/11/2020 and the patient's settings are Evaps-AE, tidal volume 350, EPAP Min 4, EPAP max 10, pressure support Min 4, pressure support max 25, maximum pressure 35, rise time 1.0, breath rate auto, ramp length 20 minutes. On these settings the % of days used more than 4 hours was 80%. % of days used 93.3. The average use of all days was 6.1 hours And the average used per day used was 6.6 hours. Her average EPAP was 5.9, average IPAP was 24.9, average tidal volume 367 mL, average breaths per minute 17.5 average total leak 42 liters/minute. Will continue theses setting with 3 L bleed in and obtian ABG in morning prior to removal of NIV. 11/27 Good download and usage at home acceptable. Continue current home AVAPS-AE mode and discharge on 3L bleed in and we will get overnight oximetry as outpatient. Use home machine inhospital as tolerated. (4) Respiratory failure with hypoxia and hypercapnia: Code(s): J96.91 - Respiratory failure, unspecified with hypoxia; J96.92 - Respiratory failure, unspecified with hypercapnia Status: Acute Assessment and Plan: Baseline blood gas on 08/12/2020 of 7.38/68/70 on 3 L nasal cannula. Last admission 09/11/2020 was discharged on Noninvasive ventilation with AVAPS-AE when sleeps with settings per DME (rate auto, TV 350, EPAP min 4, EPAP max 10, PSV min 4, PSV max 25, max pressure 25, AVAPS rate (rise) 1 (slowest), inspiratory time: auto, 5 L bleed in. On these settings her ABG at end of night on 2 L bleed in was 7.41/61/66. This admission Bicarb > 40 and ABG on 4L 7.47/46/75 in ED. 11/25 Awaiting download from DME to verify settings and usage. I spoke with Kenzie who will bring in patients home machine so taht she can wear it tonight. Will check ABG in morning. 11/26 See above download which is acceptable. 11/27 not wearing machine long enough in house to obtain ABG. Continue home NIV as outpatient (5) COPD exacerbation: Code(s): J44.1 - Chronic obstructive pulmonary disease with (acute) exacerbation Status: Acute Assessment and Plan: 11/24 Consider switching from carvedilol to a more selective beta-rafa such as metoprolol as non selective beta-blockers can worsen bronchoconstriction in patients with moderate to severe asthma and COPD Continue Pulmicort 0.5 mg q.12 hours nebulized, Continue ipratropium 0.5 mg q.6 hours nebulized, Continue albuterol 2.5 mg Q 6 hours p.r.n. (not standing as has AFIB). recommend changing to metoprolol. Discontinue all systemic steroids on 11/24 11/25 Continue symbicort 160/4.5 2 puffs Q 12, Ipratroprium 0.5 mg neb Q 6, and albuterol n
[2020-11-27 08:02] LABS: Glucose Point of Care 86 (65-105)
[2020-11-27] MEDS: FUROSEMIDE INJ 40 MG/4 ML VIAL IV PUSH (09:05)
[2020-11-27] MEDS: ONDANSETRON INJ 4 MG/2 ML VIAL IV PUSH (09:05)
[2020-11-27] MEDS: METOPROLOL TARTRATE 6.25 MG TABLET PO ×2 (09:15→21:31)
[2020-11-27] MEDS: ATORVASTATIN 40 MG TABLET 80 MG PO (09:15)
[2020-11-27] MEDS: MAGNESIUM OXIDE 400 MG TABLET PO (09:16)
[2020-11-27] MEDS: ISOSORBIDE MONONITRATE 30 MG TAB.ER.24H PO (09:16)
[2020-11-27] MEDS: COLCHICINE 0.6 MG TABLET PO ×2 (09:16→16:30)
[2020-11-27] MEDS: calcitrioL 0.25 MCG CAPSULE PO (09:16)
[2020-11-27] MEDS: SACCHAROMYCES BOULARDII 250 MG CAPSULE PO ×2 (09:16→16:31)
[2020-11-27] MEDS: POTASSIUM CHLORIDE 20 MEQ TABLET.ER 40 MEQ PO (09:16)
[2020-11-27] MEDS: FENOFIBRATE NANOCRYSTALLIZED 145 MG TABLET PO (09:16)
[2020-11-27] MEDS: amLODIPine BESYLATE 5 MG TABLET PO (09:16)
[2020-11-27] MEDS: PANTOPRAZOLE 40 MG TABLET PO (09:16)
[2020-11-27] MEDS: FERROUS SULFATE 324 MG TABLET PO ×2 (09:16→16:30)
[2020-11-27] MEDS: hydrALAZINE HCL 25 MG TABLET PO ×2 (09:16→16:30)
[2020-11-27] MEDS: TIZANIDINE HCL 4 MG TABLET PO ×3 (09:16→21:31)
[2020-11-27] MEDS: TOLNAFTATE 1% POWDER 45 GM BTL 1 APPLIC TOPICAL ×2 (09:17→21:35)
[2020-11-27] MEDS: PREGABALIN (*CRX) 50 MG CAPSULE 200 MG PO ×2 (09:17→16:29)
[2020-11-27] MEDS: EUCERIN CREAM 120 GM JAR 1 APPLIC TOPICAL (09:17)
[2020-11-27] MEDS: CLOPIDOGREL BISULFATE 75 MG TABLET PO (09:17)
[2020-11-27] MEDS: APIXABAN 5 MG TABLET PO ×2 (09:19→21:31)
[2020-11-27] MEDS: LIDOCAINE 5% PATCH 1 PATCH TRANSDERM (09:19)
[2020-11-27] MEDS: ACETAMINOPHEN 325 MG TABLET 650 MG PO ×3 (09:26→21:32)
[2020-11-27 12:21] LABS: Glucose Point of Care 156 (65-105)
--- NOTE | 2020-11-27 13:18 | PCOTNOTE ---
Attempted therapy session with patient, but patient refused, declining all ADLs, exercises and functional transfers, stating her back hurt, her belly hurt and her arms were too sore.
--- NOTE | 2020-11-27 15:02 | PC.NURSE ---
On 11/27/20, the student, [Cielo Ocasio ], provided care and completed [facility] documentation on this patient. I have reviewed the student's documentation and agree with the findings.
--- NOTE | 2020-11-27 16:09 | PM.IMPN ---
Progress Note: A&P Assessment and Plan (1) Aspiration pneumonia: Qualifiers: Aspiration pneumonia type: unspecified Laterality: bilateral Lung location: lower lobe of lung Qualified Code(s): J69.0 - Pneumonitis due to inhalation of food and vomit Code(s): J69.0 - Pneumonitis due to inhalation of food and vomit Status: Acute Assessment and Plan: Clinically patient is improving. Will repeat chest x-ray in the morning. Will continue with IV antibiotics 11/27/20 16:09 80-year-old female being treated with aspiration pneumonia being treated with Unasyn 3 g every 6 hours, states feeling little better chest x-ray on 11/22 showed left lower lobe infiltrate and consolidation, repeat chest x-ray showed improvement seen by pulmonology concerned patient is not wearing her BiPAP and will bring BiPAP from home by her family, will continue present managed appreciate input a life care planner and further recommendation to follow. 11/26 patient family had brought trilogy from and patient more last night but states this morning this see does not feel well as the trilogy was not working very well, patient was seen pulmonology and review of the data from the trilogy recommended to continue new settings, repeat chest x-ray on 11/25 showed improvement in pneumonia patient is being treated with Unasyn for aspiration pneumonia will continue present and further recommendation to follow. 11/27 patient is clinically stable and does not have any new complaint, patient is off Unasyn and Solu-Medrol, will continue vancomycin until 11/30 discussed with the pulmonology suspect patient prognosis is poor prognosis high risk of recurrent aspiration pneumonia as patient is not able to swallow and her cough reflex a very poor recommending possible comfort care or hospice, did discuss with the patient will discuss with the patient's daughter and further recommendation to follow. (2) Insulin dependent diabetes mellitus: Status: Acute Assessment and Plan: 1800 calorie restricted carb consist Accu-Cheks a.c. and HS insulin sliding scale as needed (3) Multilobar lung infiltrate: Code(s): R91.8 - Other nonspecific abnormal finding of lung field Status: Acute Assessment and Plan: Clinically improving. Will continue nebulizer treatment. Continue antibiotics. Repeat chest x-ray in the morning. (4) CKD (chronic kidney disease): Code(s): N18.9 - Chronic kidney disease, unspecified Status: Acute Assessment and Plan: continue to monitor or BUN and creatinine (5) Chronic respiratory failure with hypoxia: Code(s): J96.11 - Chronic respiratory failure with hypoxia Status: Acute Assessment and Plan: on supplemental O2 appreciate pulmonology note EF low to 35 %, comapared to one from jun 2020. consulted cardiology. apprecaite their recs (6) Acute on chronic diastolic CHF (congestive heart failure): Code(s): I50.33 - Acute on chronic diastolic (congestive) heart failure Status: Acute Assessment and Plan: iv lasix. cardiology on board. (7) RONAL (obstructive sleep apnea): Code(s): G47.33 - Obstructive sleep apnea (adult) (pediatric) Status: Acute Assessment and Plan: continue CPAP (8) Atrial fibrillation: Code(s): I48.91 - Unspecified atrial fibrillation Status: Acute Assessment and Plan: rate controlled. aon apixaban for anticoagulation (9) Insulin dependent type 2 diabetes mellitus: Code(s): E11.9 - Type 2 diabetes mellitus without complications; Z79.4 - retirement (current) use of insulin Status: Acute Assessment and Plan: continue to monitor with steorid noted hyperglycemia. now steroid is off. hyperglycemia improved. lantus 10 units bid. ssi. adjust insulin as needed (10) Hypertension: Qualifiers: Hypertension type: unspecified Qualified Code(s): I10 - Essential (primary) hypertensio
[2020-11-27 17:51] LABS: Glucose Point of Care 100 (65-105)
[2020-11-27] MEDS: INSULIN GLARGINE (*BKC) 100 UNITS/ML 10 UNITS SUB-Q (21:42)
[2020-11-28] VITALS (23 sets, daily range): BP systolic 101–135; BP diastolic 53–61; PULSE 45–99; RESP 16–22; TEMP 36.2–36.6; O2SAT 64–100
[2020-11-28 00:49] LABS: Glucose Point of Care 125 (65-105)
[2020-11-28 00:49] LABS: Glucose Point of Care 134 (65-105)
[2020-11-28 00:49] LABS: Glucose Point of Care 125 (65-105)
[2020-11-28] MEDS: IPRATROPIUM BR 0.02% INH SOLN 0.5 MG/2.5 ML VIAL INHALATION ×4 (02:19→20:28)
[2020-11-28] MEDS: ALBUTEROL SULFATE NEB 2.5 MG/0.5 ML INH INHALATION (02:23)
[2020-11-28 06:07] LABS: Hematocrit 29.8 % (37.0-47.0); Hemoglobin 8.7 g/dL (12.0-15.0); Mean Corpuscular HGB Conc 29.2 g/dl (32-36); Mean Corpuscular Hemoglobin 27.8 pg (26-34); Mean Corpuscular Volume 95.2 fl (80-100); Mean Platelet Volume 12.6 fl (7.4-10.4); Platelet Count Result 176 k/mm3 (150-375); Red Blood Count 3.13 M/mm3 (4.2-5.4); Red Cell Distribution Width 15.2 % (11.5-14.5); White Blood Count 10.2 K/mm3 (4.5-10.0)
[2020-11-28 06:21] LABS: Blood Urea Nitrogen 40 mg/dL (7-17); Calcium 8.3 mg/dL (8.4-10.2); Carbon Dioxide > 40 mmol/L (22-30); Chloride 92 mmol/L (98-107); Estimated CRCL calculation 29 ml/min; Estimated Glomerular Filt Rate 27; Glucose 88 mg/dL (65-105); Potassium 4.8 mmol/L (3.4-5.0); Sodium 134 mmol/L (137-145)
[2020-11-28] MEDS: ACETAMINOPHEN 325 MG TABLET 650 MG PO ×3 (06:55→22:10)
[2020-11-28 08:41] LABS: Glucose Point of Care 78 (65-105)
[2020-11-28] MEDS: FENOFIBRATE NANOCRYSTALLIZED 145 MG TABLET PO (09:55)
[2020-11-28] MEDS: calcitrioL 0.25 MCG CAPSULE PO (09:55)
[2020-11-28] MEDS: PREGABALIN (*CRX) 50 MG CAPSULE 200 MG PO ×2 (09:55→16:38)
[2020-11-28] MEDS: PANTOPRAZOLE 40 MG TABLET PO (09:55)
[2020-11-28] MEDS: ATORVASTATIN 40 MG TABLET 80 MG PO (09:55)
[2020-11-28] MEDS: amLODIPine BESYLATE 5 MG TABLET PO (09:56)
[2020-11-28] MEDS: ISOSORBIDE MONONITRATE 30 MG TAB.ER.24H PO (09:56)
[2020-11-28] MEDS: TIZANIDINE HCL 4 MG TABLET PO ×2 (09:56→22:11)
[2020-11-28] MEDS: MAGNESIUM OXIDE 400 MG TABLET PO (09:56)
[2020-11-28] MEDS: SACCHAROMYCES BOULARDII 250 MG CAPSULE PO ×2 (09:56→16:32)
[2020-11-28] MEDS: METOPROLOL TARTRATE 6.25 MG TABLET PO ×2 (09:56→20:04)
[2020-11-28] MEDS: APIXABAN 5 MG TABLET PO ×2 (09:56→20:04)
[2020-11-28] MEDS: POTASSIUM CHLORIDE 20 MEQ TABLET.ER 40 MEQ PO (09:56)
[2020-11-28] MEDS: FUROSEMIDE INJ 40 MG/4 ML VIAL IV PUSH (09:57)
[2020-11-28] MEDS: LIDOCAINE 5% PATCH 1 PATCH TRANSDERM (09:57)
[2020-11-28] MEDS: CLOPIDOGREL BISULFATE 75 MG TABLET PO (09:57)
[2020-11-28] MEDS: FERROUS SULFATE 324 MG TABLET PO ×2 (09:57→16:32)
[2020-11-28] MEDS: COLCHICINE 0.6 MG TABLET PO ×2 (09:57→16:32)
[2020-11-28] MEDS: hydrALAZINE HCL 25 MG TABLET PO ×2 (09:57→16:32)
[2020-11-28] MEDS: TOLNAFTATE 1% POWDER 45 GM BTL 1 APPLIC TOPICAL ×2 (09:58→20:09)
[2020-11-28] MEDS: EUCERIN CREAM 120 GM JAR 1 APPLIC TOPICAL (09:58)
[2020-11-28] MEDS: acetaZOLAMIDE TAB 250 MG TABLET PO (10:38)
[2020-11-28 11:57] LABS: Glucose Point of Care 114 (65-105)
--- NOTE | 2020-11-28 14:53 | PC.NURSE ---
On 11/28/20, the student, [Emilia Almaraz ], provided care and completed [facility] documentation on this patient. I have reviewed the student's documentation and agree with the findings.
--- NOTE | 2020-11-28 16:10 | PM.PNCARD ---
Progress Note: A&P Assessment and Plan (1) CHF (congestive heart failure): Code(s): I50.9 - Heart failure, unspecified Status: Acute Assessment and Plan: Her ECHO done few days ago and read by Dr. Quintana suggest moderate LV systolic dysfunction (LVEF 35%). Previous ECHO showed normal LV systolic function and diastolic dysfunction.Itwas done in 06/18. Pt had COVID pneumonia in Jul 2020. 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 Not on ACEI due to CRF She may benefit from further cardiac evaluation on outpatient basis when recovers from current medical condition will switch Lasix to oral, and she is okay to be discharged home from cardiac standpoint standpoint, please have her follow up with me in 1 week (2) Aspiration pneumonia: Qualifiers: Aspiration pneumonia type: unspecified Laterality: bilateral Lung location: lower lobe of lung Qualified Code(s): J69.0 - Pneumonitis due to inhalation of food and vomit Code(s): J69.0 - Pneumonitis due to inhalation of food and vomit Status: Acute (3) Insulin dependent diabetes mellitus: Status: Acute (4) CKD (chronic kidney disease): Code(s): N18.9 - Chronic kidney disease, unspecified Status: Acute (5) Atrial fibrillation with controlled ventricular response: Code(s): I48.91 - Unspecified atrial fibrillation Status: Acute Assessment and Plan: Pt is in AFIB HR well controlled cont current meds including anticoagulation Subjective Date/time seen: 11/28/20 16:10 Feels fair today, no shortness breath, no chest pain, she still is on IV antibiotics Exam Const: General: alert and awake; No acute distress HENMT: Head: normal to inspection and atraumatic Ears: hearing grossly normal bilaterally Face and sinus: normal facial exam Eyes: General: appearance normal, both eyes and all related structures Pupils: Equal, round and reactive pupils present EOM: EOMs intact bilaterally Neck: Neck: normal visual inspection and no JVD Chest: Chest palpation & inspection: normal inspection of the chest Resp: Effort & Inspection: normal respiratory effort, no respiratory distress and prolonged expiratory phase Auscultation: rales Cardio: Jugular venous distension: no JVD Rate: other Rhythm: other (irregularly irregular) Heart sounds: Murmur heart sound present systolic GI: Inspection: normal to inspection Auscultation: normal bowel sounds Skin: General skin exam: normal color Neuro: Cranial nerves: Yes Equal, round and reactive pupils present Extrem: General: normal to inspection and no clubbing, cyanosis or edema Objective Data Vital Signs Vital Signs: Vital Signs - 24 hr 11/27/20 20:00 11/27/20 20:53 11/27/20 21:00 Temperature Pulse Rate 53 L 56 L 56 L Respiratory Rate 18 18 Blood Pressure Pulse Oximetry 95 11/27/20 21:08 11/27/20 21:30 11/27/20 21:31 Temperature Pulse Rate 62 70 Respiratory Rate 18 Blood Pressure Pulse Oximetry 100 11/27/20 22:00 11/28/20 00:00 11/28/20 00:05 Temperature 36.4 C Pulse Rate 63 63 99 Respiratory Rate 18 Blood Pressure 112/69 Pulse Oximetry 100 64 L 11/28/20 02:24 11/28/20 02:35 11/28/20 04:00 Temperature Pulse Rate 45 L 56 L 65 Respiratory Rate 18 18 Blood Pressure Pulse Oximetry 11/28/20 06:00 11/28/20 07:50 11/28/20 07:51 Temperature 36.6 C Pulse Rate 84 65 Respiratory Rate 16 20 Blood Pressure 135/61 Pulse Oximetry 100 96 11/28/20 08:00 11/28/20 08:05 11/28/20 08:38 Temperature Pulse Rate 71 63 Respiratory Rate 20 Blood Pressure Pulse Oximetry 98 11/28/20 09:56 11/28/20 12:00 11/28/20 13:59 Temperature 36.3 C L Pulse Rate 88 69 74 Respiratory Rate 16 Blood Pressure 101/55 L Pulse Oximetry 100 11/28/20 14:30 11/28/20 14:40 11/28/20 16:00 Temperature Pulse Rate 59 L 57 L 87 Respiratory Rate 18 18 Blood Pressure Pulse Oximetry
[2020-11-28 16:15] LABS: Vancomycin Trough 14.5 ug/mL (10.0-20.0)
[2020-11-28 16:57] LABS: Glucose Point of Care 108 (65-105)
--- NOTE | 2020-11-28 17:33 | PM.IMPN ---
Progress Note: A&P Assessment and Plan (1) Aspiration pneumonia: Qualifiers: Aspiration pneumonia type: unspecified Laterality: bilateral Lung location: lower lobe of lung Qualified Code(s): J69.0 - Pneumonitis due to inhalation of food and vomit Code(s): J69.0 - Pneumonitis due to inhalation of food and vomit Status: Acute Assessment and Plan: Clinically patient is improving. Will repeat chest x-ray in the morning. Will continue with IV antibiotics 11/28/20 17:33 11/27 80-year-old female being treated with aspiration pneumonia being treated with Unasyn 3 g every 6 hours, states feeling little better chest x-ray on 11/22 showed left lower lobe infiltrate and consolidation, repeat chest x-ray showed improvement seen by pulmonology concerned patient is not wearing her BiPAP and will bring BiPAP from home by her family, will continue present managed appreciate input a automotive accessory installer and further recommendation to follow. 11/26 patient family had brought trilogy from and patient more last night but states this morning this see does not feel well as the trilogy was not working very well, patient was seen pulmonology and review of the data from the trilogy recommended to continue new settings, repeat chest x-ray on 11/25 showed improvement in pneumonia patient is being treated with Unasyn for aspiration pneumonia will continue present and further recommendation to follow. 11/27 patient is clinically stable and does not have any new complaint, patient is off Unasyn and Solu-Medrol, will continue vancomycin until 11/30 discussed with the pulmonology suspect patient prognosis is poor prognosis high risk of recurrent aspiration pneumonia as patient is not able to swallow and her cough reflex a very poor recommending possible comfort care or hospice, did discuss with the patient will discuss with the patient's daughter and further recommendation to follow. 11/28 patient has no new complaint, patient clinically stable off Unasyn, plan is to continue vancomycin and patient will finish last dose on 11/30 and plan is to discharge the patient home with home health. (2) Insulin dependent diabetes mellitus: Status: Acute Assessment and Plan: 1800 calorie restricted carb consist Accu-Cheks a.c. and HS insulin sliding scale as needed (3) Multilobar lung infiltrate: Code(s): R91.8 - Other nonspecific abnormal finding of lung field Status: Acute Assessment and Plan: Clinically improving. Will continue nebulizer treatment. Continue antibiotics. Repeat chest x-ray in the morning. (4) CKD (chronic kidney disease): Code(s): N18.9 - Chronic kidney disease, unspecified Status: Acute Assessment and Plan: continue to monitor or BUN and creatinine (5) Chronic respiratory failure with hypoxia: Code(s): J96.11 - Chronic respiratory failure with hypoxia Status: Acute Assessment and Plan: on supplemental O2 appreciate pulmonology note EF low to 35 %, comapared to one from jun 2020. consulted cardiology. apprecaite their recs (6) Acute on chronic diastolic CHF (congestive heart failure): Code(s): I50.33 - Acute on chronic diastolic (congestive) heart failure Status: Acute Assessment and Plan: iv lasix. cardiology on board. (7) RONAL (obstructive sleep apnea): Code(s): G47.33 - Obstructive sleep apnea (adult) (pediatric) Status: Acute Assessment and Plan: continue CPAP (8) Atrial fibrillation: Code(s): I48.91 - Unspecified atrial fibrillation Status: Acute Assessment and Plan: rate controlled. 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 now steroid i
[2020-11-28] MEDS: ONDANSETRON INJ 4 MG/2 ML VIAL IV PUSH ×2 (18:08→22:15)
[2020-11-28] MEDS: NITROGLYCERIN SL 0.4 MG TABLET SUBLINGUAL ×2 (18:24→20:05)
--- NOTE | 2020-11-28 18:25 | ECG_ITS ---
Measurements Intervals [place] Rate: 72 P: [place]: 0 QRS: -10 QRSD: 150 T: -37 QT: 422 QTc: 465 Interpretive Statements ATRIAL FIBRILLATION LEFT BUNDLE BRANCH BLOCK ANTEROESEPTAL INFARCT OR DUE TO LBBB BASELINE WANDER- II, III, AVF, V6 ABNORMAL ECG Electronically Signed On 11-29-2020 7:06:50 CDT by Rick Zapata D.O.
[2020-11-28 19:15] LABS: Troponin I 0.031 ng/mL (0.000-0.034)
[2020-11-28] MEDS: INSULIN GLARGINE (*BKC) 100 UNITS/ML 10 UNITS SUB-Q (20:08)
[2020-11-28 20:36] LABS: Glucose Point of Care 143 (65-105)
[2020-11-29] VITALS (23 sets, daily range): BP systolic 106–146; BP diastolic 54–99; PULSE 62–109; RESP 16–25; TEMP 35.9–36.4; O2SAT 93–100
[2020-11-29] MEDS: IPRATROPIUM BR 0.02% INH SOLN 0.5 MG/2.5 ML VIAL INHALATION ×4 (01:58→21:33)
[2020-11-29 05:41] LABS: Hemoglobin 8.3 g/dL (12.0-15.0); Mean Corpuscular HGB Conc 28.6 g/dl (32-36); Mean Corpuscular Hemoglobin 27.9 pg (26-34); Mean Corpuscular Volume 97.3 fl (80-100); Mean Platelet Volume 13.1 fl (7.4-10.4); Platelet Count Result 148 k/mm3 (150-375); Red Blood Count 2.98 M/mm3 (4.2-5.4); Red Cell Distribution Width 15.9 % (11.5-14.5); White Blood Count 10.5 K/mm3 (4.5-10.0)
[2020-11-29 06:29] LABS: Blood Urea Nitrogen 36 mg/dL (7-17); Calcium 8.3 mg/dL (8.4-10.2); Carbon Dioxide > 40 mmol/L (22-30); Chloride 92 mmol/L (98-107); Estimated CRCL calculation 28 ml/min; Estimated Glomerular Filt Rate 26; Glucose 91 mg/dL (65-105); Potassium 4.3 mmol/L (3.4-5.0); Sodium 134 mmol/L (137-145)
[2020-11-29] MEDS: ALBUTEROL SULFATE NEB 2.5 MG/0.5 ML INH INHALATION ×3 (08:03→21:33)
[2020-11-29 08:35] LABS: Glucose Point of Care 85 (65-105)
[2020-11-29] MEDS: hydrALAZINE HCL 25 MG TABLET PO ×2 (09:24→17:46)
[2020-11-29] MEDS: FERROUS SULFATE 324 MG TABLET PO ×2 (09:24→17:46)
[2020-11-29] MEDS: POTASSIUM CHLORIDE 20 MEQ TABLET.ER 40 MEQ PO (09:24)
[2020-11-29] MEDS: CLOPIDOGREL BISULFATE 75 MG TABLET PO (09:25)
[2020-11-29] MEDS: ATORVASTATIN 40 MG TABLET 80 MG PO (09:25)
[2020-11-29] MEDS: amLODIPine BESYLATE 5 MG TABLET PO (09:25)
[2020-11-29] MEDS: APIXABAN 5 MG TABLET PO ×2 (09:25→20:34)
[2020-11-29] MEDS: calcitrioL 0.25 MCG CAPSULE PO (09:25)
[2020-11-29] MEDS: FUROSEMIDE 40 MG TABLET PO (09:26)
[2020-11-29] MEDS: PANTOPRAZOLE 40 MG TABLET PO (09:26)
[2020-11-29] MEDS: COLCHICINE 0.6 MG TABLET PO ×2 (09:26→17:47)
[2020-11-29] MEDS: ISOSORBIDE MONONITRATE 30 MG TAB.ER.24H PO (09:26)
[2020-11-29] MEDS: SACCHAROMYCES BOULARDII 250 MG CAPSULE PO ×2 (09:26→17:48)
[2020-11-29] MEDS: FENOFIBRATE NANOCRYSTALLIZED 145 MG TABLET PO (09:26)
[2020-11-29] MEDS: MAGNESIUM OXIDE 400 MG TABLET PO (09:27)
[2020-11-29] MEDS: METOPROLOL TARTRATE 6.25 MG TABLET PO ×2 (09:27→20:34)
[2020-11-29] MEDS: LIDOCAINE 5% PATCH 1 PATCH TRANSDERM (09:27)
[2020-11-29] MEDS: EUCERIN CREAM 120 GM JAR 1 APPLIC TOPICAL (09:28)
[2020-11-29] MEDS: TOLNAFTATE 1% POWDER 45 GM BTL 1 APPLIC TOPICAL ×2 (09:29→20:37)
[2020-11-29] MEDS: ACETAMINOPHEN 325 MG TABLET 650 MG PO (09:58)
[2020-11-29] MEDS: PREGABALIN (*CRX) 50 MG CAPSULE 200 MG PO ×2 (09:58→17:50)
[2020-11-29] MEDS: acetaZOLAMIDE TAB 250 MG TABLET PO (09:58)
[2020-11-29 10:34] LABS: Glucose Point of Care 125 (65-105)
[2020-11-29 12:51] LABS: Glucose Point of Care 104 (65-105)
--- NOTE | 2020-11-29 13:49 | PM.IMPN ---
Progress Note: A&P Assessment and Plan (1) Aspiration pneumonia: Qualifiers: Aspiration pneumonia type: unspecified Laterality: bilateral Lung location: lower lobe of lung Qualified Code(s): J69.0 - Pneumonitis due to inhalation of food and vomit Code(s): J69.0 - Pneumonitis due to inhalation of food and vomit Status: Acute Assessment and Plan: Clinically patient is improving. Will repeat chest x-ray in the morning. Will continue with IV antibiotics 11/29/20 13:49 11/27 80-year-old female being treated with aspiration pneumonia being treated with Unasyn 3 g every 6 hours, states feeling little better chest x-ray on 11/22 showed left lower lobe infiltrate and consolidation, repeat chest x-ray showed improvement seen by pulmonology concerned patient is not wearing her BiPAP and will bring BiPAP from home by her family, will continue present managed appreciate input a radiation therapy technician and further recommendation to follow. 11/26 patient family had brought trilogy from and patient more last night but states this morning this see does not feel well as the trilogy was not working very well, patient was seen pulmonology and review of the data from the trilogy recommended to continue new settings, repeat chest x-ray on 11/25 showed improvement in pneumonia patient is being treated with Unasyn for aspiration pneumonia will continue present and further recommendation to follow. 11/27 patient is clinically stable and does not have any new complaint, patient is off Unasyn and Solu-Medrol, will continue vancomycin until 11/30 discussed with the pulmonology suspect patient prognosis is poor prognosis high risk of recurrent aspiration pneumonia as patient is not able to swallow and her cough reflex a very poor recommending possible comfort care or hospice, did discuss with the patient will discuss with the patient's daughter and further recommendation to follow. 11/28 patient has no new complaint, patient clinically stable off Unasyn, plan is to continue vancomycin and patient will finish last dose on 11/30 and plan is to discharge the patient home with home health. 11/29 today patient appears more somnolent states not feeling well, patient's vitals are stable there is no fever and requiring 2 L of oxygen her baseline, will get the patient updraft, will continue to monitor and patient received her last dose of vancomycin tomorrow and plan is to discharge the patient home (2) Insulin dependent diabetes mellitus: Status: Acute Assessment and Plan: 1800 calorie restricted carb consist Accu-Cheks a.c. and HS insulin sliding scale as needed (3) Multilobar lung infiltrate: Code(s): R91.8 - Other nonspecific abnormal finding of lung field Status: Acute Assessment and Plan: Clinically improving. Will continue nebulizer treatment. Continue antibiotics. Repeat chest x-ray in the morning. (4) CKD (chronic kidney disease): Code(s): N18.9 - Chronic kidney disease, unspecified Status: Acute Assessment and Plan: continue to monitor or BUN and creatinine (5) Chronic respiratory failure with hypoxia: Code(s): J96.11 - Chronic respiratory failure with hypoxia Status: Acute Assessment and Plan: on supplemental O2 appreciate pulmonology note EF low to 35 %, comapared to one from jun 2020. consulted cardiology. apprecaite their recs (6) Acute on chronic diastolic CHF (congestive heart failure): Code(s): I50.33 - Acute on chronic diastolic (congestive) heart failure Status: Acute Assessment and Plan: iv lasix. cardiology on board. (7) RONAL (obstructive sleep apnea): Code(s): G47.33 - Obstructive sleep apnea (adult) (pediatric) Status: Acute Assessment and Plan: continue CPAP (8) Atrial fibrillation: Code(s): I48.91 - Unspecified atrial fibrillation Status: Acute Assessment and Plan: rate controlled. charleen victor
--- NOTE | 2020-11-29 15:17 | PCPTNOTE ---
The PT treatment was unable to be completed today. Will continue per Plan of Care frequency and duration.
--- NOTE | 2020-11-29 15:37 | PM.PNCARD ---
Progress Note: A&P Assessment and Plan (1) CHF (congestive heart failure): Code(s): I50.9 - Heart failure, unspecified Status: Acute Assessment and Plan: Her ECHO done few days ago and read by Dr. Quintana suggests moderate LV systolic dysfunction (LVEF 35%). Previous ECHO showed normal LV systolic function and diastolic dysfunction. Itwas done in 06/18. Pt had COVID pneumonia in Jul 2020. 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 Not on ACEI due to CRF. She may benefit from further cardiac evaluation on outpatient basis when recovers from current medical condition. Patient currently has atypical chest pain with lower central chest wall tenderness on palpation. She is a difficult historian but she has been coughing recently per nursing staff and has had intermittent chest pain for several days with repeat troponin I negative this admission 11/28/2020. EKG with Atrial fibrillation with moderate ventricular response and left bundle-branch block. Will switch Lasix to oral, and she is okay to be discharged home from cardiac standpoint standpoint, please have her follow up with [facility] in 1 week (2) Aspiration pneumonia: Qualifiers: Aspiration pneumonia type: unspecified Laterality: bilateral Lung location: lower lobe of lung Qualified Code(s): J69.0 - Pneumonitis due to inhalation of food and vomit Code(s): J69.0 - Pneumonitis due to inhalation of food and vomit Status: Acute Assessment and Plan: -Management as per primary service. (3) Insulin dependent diabetes mellitus: Status: Acute (4) CKD (chronic kidney disease): Code(s): N18.9 - Chronic kidney disease, unspecified Status: Acute Assessment and Plan: Continue close monitoring of renal function and electrolytes. (5) Atrial fibrillation with controlled ventricular response: Code(s): I48.91 - Unspecified atrial fibrillation Status: Acute Assessment and Plan: Pt is in AFIB HR well controlled cont current meds including anticoagulation Subjective Date/time seen: 11/29/20 15:37 Patient reports lower central chest discomfort worse when she presses on her chest for at least several days. She reports ongoing dyspnea at rest. She denies dizziness. Patient is a difficult historian. Patient was seen and examined, chart reviewed, case discussed with nurse. Nurse reports patient has complained of intermittent chest pain for days and has been coughing in the setting of her pneumonia. Exam Const: General: alert and awake; No acute distress HENMT: Head: normal to inspection and atraumatic Ears: hearing grossly normal bilaterally Face and sinus: normal facial exam Eyes: General: appearance normal, both eyes and all related structures Pupils: Equal, round and reactive pupils present EOM: EOMs intact bilaterally Neck: Neck: normal visual inspection and no JVD Chest: Chest palpation & inspection: normal inspection of the chest Resp: Effort & Inspection: normal respiratory effort, no respiratory distress and prolonged expiratory phase Other: Diminished breath sounds bilaterally, without crackles but with mild diffuse wheezing. Cardio: Jugular venous distension: no JVD Rate: other Rhythm: other (irregularly irregular) Heart sounds: Murmur heart sound present systolic Other: Lower central chest wall tender with palpation. GI: Inspection: normal to inspection Auscultation: normal bowel sounds Skin: General skin exam: normal color Neuro: Cranial nerves: Yes Equal, round and reactive pupils present Extrem: General: normal to inspection and no clubbing, cyanosis or edema Objective Data Vital Signs Vital Signs: Vital Signs - 24 hr 11/28/20 16:00 11/28/20 20:00 11/28/20 20:04 Temperature Pulse Rate 87 87 80 Respiratory Rate 22 H Blood Pressure Pulse Oximetry 98 11/28/20 20:30 11/28/20 20:33 11/28/20 20:40 Temperature Pulse Rate 70 6
[2020-11-29 17:03] LABS: Glucose Point of Care 102 (65-105)
[2020-11-29 17:31] LABS: Glucose Point of Care 104 (65-105)
--- NOTE | 2020-11-29 18:08 | PC.NURSE ---
Tare Man called Dr. Gonzales as family is requesting pt to have UA done, pt is having intermittent confusion when she does not want to answer questions asked but can hold intelligent conversations on other subjects. She does have increasing weakness but does continue to ambulate to commode with assist times two. N.O may collect UA C&S
[2020-11-29 20:42] LABS: Glucose Point of Care 86 (65-105)
[2020-11-29] MEDS: ALBUTEROL SULFATE NEB 2.5 MG/0.5 ML INH 10 MG (21:46)
[2020-11-29] MEDS: IPRATROPIUM BR 0.02% INH SOLN 0.5 MG/2.5 ML VIAL 1 MG (21:46)
[2020-11-29 23:12] LABS: Base Excess ABG 4.8 mEq/l (+/-2.0); Carboxyhemoglobin 0.1 % THb (0-2.0); Fractional Inspired Oxygen 50 %; HCO3 ABG 35.8 mEq/l (22.0-26.0); Methemoglobin ABG 0.7 %THb (0-1.5); Oxyhemoglobin 71.3 % THb (90.0-100.0); PO2 FiO2 Ratio Arterial Blood 0.87 %; Reduced Hemoglobin 27.9 %THb (0-5.0)
[2020-11-29 23:15] LABS: Modified Allen's Test Unable to perform; Oxygen Saturation ABG 64.5 % (95.0-100.0); PCO2 ABG 99.4 mmHg (35.0-45.0); PO2 ABG 43.7 mmHg (80.0-100.0); Site Drawn LEFT RADIAL; pH ABG 7.174 (7.350-7.450)
[2020-11-29 23:16] LABS: Device OTHER DEVICE
[2020-11-29 23:25] LABS: Glucose Point of Care 100 (65-105)
--- NOTE | 2020-11-29 23:28 | PC.NURSE ---
patient transferred to icu for emergent intubation after sats detoriated into 60's after hour long tx of albuterol. blood gasses drawn after tx. o2 sat 64 on abgs. . full code. alert and eyes open but pt not responding verbally. bag mask during transfer and sats up to 97%
--- NOTE | 2020-11-29 23:45 | PM.EVENT ---
Event Note Event Note Event Note: Transfer Note This is a morbidly obese 80-year-old female who is being treated for acute on chronic heart failure as well as possible aspiration pneumonia. [facility] nursing staff alerted me that the patient was having increased work of breathing and would not wear her trilogy. On my arrival to bedside I discussed with the patient that she would need to wear her BiPAP or possibly be intubated if her work of breathing worsen. We administered an hour long bronchodilator therapy. My plan was to check an ABG in 1 hour to see how the patient's oxygenation and pCO2 was. At that time I urged the patient that she would need to wear her trilogy. Her vital signs were stable at this time and she was saturating 94%. Nursing staff called me approximately 40 minutes later and alerted me that the patient was having increased work of breathing. On my arrival to bedside the patient is saturating in the mid 80s and tachypnic with respiratory rate in the 40s. We transfer the patient to the ICU for emergent endotracheal intubation and mechanical ventilation as the patient is a full code status. The patient was intubated and placed on mechanical ventilation. Patient's family was updated on her current clinical condition. I have consulted and discussed the case in detail with our mechanical service representative, Dr. Blancas. I will continue to monitor closely overnight and plan to place an IJ central line for possible vasopressors and vascular access. I will continue to monitor and assess as needed overnight.
--- NOTE | 2020-11-29 23:45 | WPDPROCEDUR ---
Procedures Intubation Intubation Date: 11/29/20 Intubation Time: 23:35 A pre-procedural Time-Out was completed immediately before starting the procedure and confirmed: Patient Identification, Site, Procedure, Patient Position and the Availability of Requisite Equipment: Yes Sedative: etomidate Mg given: 10 Paralytic: rocuronium Mg given: 70 Laryngoscope: Selina ET tube size: 7.5 Tube secured depth (cm): 25 Tube secured location: lips Tube placement confirmation: visualized tube passing through cords, equal breath sounds bilaterally, no breath sounds over epigastrium and confirmation by capnometry Patient tolerated procedure: well and no complications Intubation complications: none Additional comments: Date of service was 11/29/2020 23:35
[2020-11-30] VITALS (48 sets, daily range): BP systolic 72–143; BP diastolic 32–105; PULSE 41–112; RESP 15–24; TEMP 36.6–38.2; O2SAT 91–100
[2020-11-30] MEDS: MIDAZOLAM 100MG/NS 100ML(*CRX) 100 MG/100 ML BAG IV CONT
[2020-11-30] MEDS: FENTANYL 2,500MCG/NS250ML(*CRX 2,500 MCG/250 ML BAG 7.5 MCG IV CONT
[2020-11-30 01:13] LABS: Add Urine Microscopic? NO; Appearance Urine Clear (Clear); Bilirubin Urine Negative (Negative); Blood Urine Negative (Negative); Color Urine Yellow (Yellow); Glucose Urine UA Negative (Negative); Ketones Urine Negative (Negative); Leukocyte Esterase Ur Negative LEU/UL (Negative); Nitrate Urine Negative (Negative); Protein Urine Negative (Negative); Specific Grav Ur 1.005 (1.001-1.035); Urobilinogen Urine Negative mg/dL (<2.0)
--- NOTE | 2020-11-30 01:30 | P.PCNBED_ITS ---
Procedures Central Line Placement Left IJ: Central Line Date: 11/30/20 Central Line Time: 01:20 The patient/family/POA understand(s) and acknowledge(s) the need to proceed with central venous catheter insertion as an important element of the patient's clinical management.: Yes Time Out Performed: Yes Patient Position: supine Patient placed on monitor/pulse ox: Yes Provider Prep: mask, sterile gown, sterile gloves, Max. sterile barrier precautions, cap and hand hygiene with conventional soap/water or alcohol based hand rub Central line prep: 2% Chlorhexidine scrub Sterile US Technique with sterile gel/sterile probe covers: Yes Central line lumen inserted: triple [place]an: 7 Length (cm): 18 Depth of Insertion (cm): 18 Post Procedure: sutured in place, good blood return, all ports aspirated, flushed, capped, transparent dressing, securement product and aseptic technique maintained throughout procedure Post procedure x-ray: tip of catheter in good position and no pneumothorax seen Patient tolerated procedure: well and no complications Complications: none Additional comments: Date of service was 11/30/2020 at 01:20
[2020-11-30 01:57] LABS: Alveolar/Arterial O2 Gradient 173.4 mmHg; Base Excess ABG 2.9 mEq/l (+/-2.0); Fractional Inspired Oxygen 50 %; HCO3 ABG 29.7 mEq/l (22.0-26.0); Oxygen Content ABG 13.9 %vol (16.0-22.0); Oxyhemoglobin 96.6 % THb (90.0-100.0); PCO2 ABG 57.5 mmHg (35.0-45.0); PO2 ABG 118.4 mmHg (80.0-100.0); PO2 FiO2 Ratio Arterial Blood 2.37 %; Total Hemoglobin 10.1 g/dL (12.0-18.0); pH ABG 7.331 (7.350-7.450)
[2020-11-30 01:58] LABS: Arterial Blood Gas PEEP 5 cmH2O; Arterial Blood Gas Tidal Volume 430 ml; Arterial Blood Gas Vent Mode CMV; Arterial Blood Gas Ventilator rate 15 /MIN; Device VENTILATOR; Modified Allen's Test Unable to perform; Site Drawn RIGHT RADIAL
[2020-11-30 04:41] LABS: Hematocrit 29.5 % (37.0-47.0); Hemoglobin 8.3 g/dL (12.0-15.0); Immature Platelet Fraction Pct 9.9 % (0.9-11.2); Mean Corpuscular HGB Conc 28.1 g/dl (32-36); Mean Corpuscular Hemoglobin 28.1 pg (26-34); Platelet Count Result 160 k/mm3 (150-375); Red Blood Count 2.95 M/mm3 (4.2-5.4); Red Cell Distribution Width 16.1 % (11.5-14.5); White Blood Count 10.2 K/mm3 (4.5-10.0)
[2020-11-30] MEDS: ACETAMINOPHEN 325 MG TABLET 650 MG PO (04:51)
[2020-11-30 05:03] LABS: Anion Gap 11 mmol/L (8-16); Blood Urea Nitrogen 31 mg/dL (7-17); Calcium 8.6 mg/dL (8.4-10.2); Carbon Dioxide 32 mmol/L (22-30); Chloride 94 mmol/L (98-107); Estimated CRCL calculation 28 ml/min; Estimated Glomerular Filt Rate 26; Glucose 83 mg/dL (65-105); Potassium 3.9 mmol/L (3.4-5.0); Sodium 137 mmol/L (137-145)
[2020-11-30] MEDS: CENTRAL LINE FLUSH 10 ML IV PUSH ×2 (06:07→20:45)
[2020-11-30] MEDS: NOREPINEPHRINE 8 MG/D5W 250 ML 8 MG/250 ML BAG 9.38 MG IV CONT (06:10)
[2020-11-30] MEDS: SODIUM CHLORIDE 0.9% IV 500 ML 999 ML IV CONT (06:26)
--- NOTE | 2020-11-30 06:44 | ECG_ITS ---
Measurements Intervals [place] Rate: 48 P: [place]: 0 QRS: -25 QRSD: 107 T: 85 QT: 505 QTc: 452 Interpretive Statements ATRIAL FIBRILLATION WITH SLOW VENTRICULAR RESPONSE VENTRICULAR PREMATURE COMPLEX ANTEROSEPTAL INFARCT, AGE INDETERMINATE BORDERLINE ST-T WAVE ABNORMALITY- HIGH LATERAL LEADS ABNORMAL ECG Electronically Signed On 11-30-2020 7:29:24 CDT by Rick Zapata D.O.
[2020-11-30 07:10] LABS: Magnesium 1.7 mg/dL (1.6-2.3)
[2020-11-30 07:36] LABS: Thyroid Stimulating Hormone Reflex 0.675 uIU/mL (0.465-4.68)
[2020-11-30] MEDS: APIXABAN 5 MG TABLET PO ×2 (08:22→20:43)
[2020-11-30] MEDS: FUROSEMIDE INJ 100 MG/10 ML VIAL 80 MG IV PUSH ×2 (08:22→20:48)
[2020-11-30] MEDS: ATORVASTATIN 40 MG TABLET 80 MG PO (08:22)
[2020-11-30] MEDS: FERROUS SULFATE 324 MG TABLET PO ×2 (08:22→17:40)
[2020-11-30] MEDS: COLCHICINE 0.6 MG TABLET PO (08:23)
[2020-11-30] MEDS: MAGNESIUM OXIDE 400 MG TABLET PO (08:23)
[2020-11-30] MEDS: FENOFIBRATE NANOCRYSTALLIZED 145 MG TABLET PO (08:23)
[2020-11-30] MEDS: CLOPIDOGREL BISULFATE 75 MG TABLET PO (08:23)
[2020-11-30] MEDS: calcitrioL 0.25 MCG CAPSULE PO (08:23)
[2020-11-30] MEDS: PANTOPRAZOLE SODIUM IV 40 MG VIAL IV PUSH (08:24)
[2020-11-30] MEDS: TOLNAFTATE 1% POWDER 45 GM BTL 1 APPLIC TOPICAL ×2 (08:24→20:45)
[2020-11-30] MEDS: PREGABALIN (*CRX) 50 MG CAPSULE 200 MG PO ×2 (08:24→17:40)
[2020-11-30] MEDS: SACCHAROMYCES BOULARDII 250 MG CAPSULE PO ×2 (08:24→17:41)
[2020-11-30] MEDS: EUCERIN CREAM 120 GM JAR 1 APPLIC TOPICAL (08:24)
--- NOTE | 2020-11-30 11:00 | PCPTNOTE ---
Patient change of status over night on 11/29 nursing awareness of new order for PT and will advise on-staff PT for new evaluation before continue.
--- NOTE | 2020-11-30 11:27 | WPDCNINT ---
Assessment and Plan Assessment and plan (1) Acute and chronic respiratory failure with hypercapnia: Code(s): J96.22 - Acute and chronic respiratory failure with hypercapnia Status: Acute Assessment and Plan: She does have history of chronic hypoxic and hypercarbic respiratory failure with her pCO2 in mid 60s at her baseline. She uses trilogy at nighttime at her baseline. Continue mechanical ventilation with current settings. She requiring FiO2 of 40% and PEEP of 5. Low tidal volume strategies should be employed. Follow ABG and chest x-ray. SBT trial once appropriate. Try to extubate her if she does well with SBT trial in the next few days. (2) Acute on chronic diastolic CHF (congestive heart failure): Code(s): I50.33 - Acute on chronic diastolic (congestive) heart failure Status: Acute Assessment and Plan: Her clinical presentation and exam is suggestive of significant fluid overload. Chest x-ray showed pulmonary edema as well. I will give her a dose of Lasix of 80 mg today with good urine output. I will repeat a dose later today. She is on pressors but her pressor requirement is not trending up rather it is trending down. Cardiology follow-up. Strict intake output record and daily weight. Continue to monitor renal parameters and electrolytes. (3) Coag negative Staphylococcus bacteremia: Code(s): R78.81 - Bacteremia; B95.7 - Other staphylococcus as the cause of diseases classified elsewhere Status: Acute Assessment and Plan: Infectious disease service follow-up. She is on vancomycin until today. She will finish the course today. (4) Atrial fibrillation with controlled ventricular response: Code(s): I48.91 - Unspecified atrial fibrillation Status: Acute Assessment and Plan: Currently rate is well controlled. Metoprolol has been put on hold because of hypotension. Continue apixaban for now. (5) Aspiration pneumonia: Qualifiers: Aspiration pneumonia type: unspecified Laterality: bilateral Lung location: lower lobe of lung Qualified Code(s): J69.0 - Pneumonitis due to inhalation of food and vomit Code(s): J69.0 - Pneumonitis due to inhalation of food and vomit Status: Acute Assessment and Plan: Completed a course of Unasyn on 11/26. I reviewed chest x-ray which is suggestive of fluid overload rather than another episode of aspiration pneumonitis/pneumonia. Hold off antibiotics for now. Check procalcitonin level. (6) COPD exacerbation: Code(s): J44.1 - Chronic obstructive pulmonary disease with (acute) exacerbation Status: Acute Assessment and Plan: She is not actively wheezing now. Hold of steroid. She completed a course of steroid already. Continue bronchodilator. (7) RONAL (obstructive sleep apnea): Code(s): G47.33 - Obstructive sleep apnea (adult) (pediatric) Status: Acute Assessment and Plan: Currently intubated. She will resume her trilogy at nighttime once extubated. (8) Morbid obesity with BMI of 40.0-44.9, adult: Code(s): E66.01 - Morbid (severe) obesity due to excess calories; Z68.41 - Body mass index [BMI]40.0-44.9, adult Status: Acute Assessment and Plan: Continue to monitor (9) Chronic kidney disease, stage 3: Code(s): N18.30 - Chronic kidney disease, stage 3 unspecified Status: Acute Assessment and Plan: Continue to monitor. (10) Hypertension: Qualifiers: Hypertension type: unspecified Qualified Code(s): I10 - Essential (primary) hypertension Code(s): I10 - Essential (primary) hypertension Status: Chronic Assessment and Plan: Hold of her antihypertensive regimen because of hypotension. Follow hemodynamics closely. Will resume antihypertensive regimen one by one once her hemodynamics are stable. (11) Shock: Code(s): R57.9 - Shock, unspecified
[2020-11-30 11:54] LABS: Glucose Point of Care 67 (65-105)
[2020-11-30] MEDS: DEXTROSE 50% 25 GM/50 ML SYRINGE IV PUSH (13:01)
[2020-11-30 13:07] LABS: Glucose Point of Care 58 (65-105)
--- NOTE | 2020-11-30 13:57 | PCOTNOTE ---
Therapist spoke with physician. Hold OT treatment due to change in medical status. Patient is now intubated and is unable to participate in OT treatment. Will await orders to resume OT when appropriate.
--- NOTE | 2020-11-30 13:57 | PCPTNOTE ---
Chandni has moved to ICU, she has been intubated. Spoke with MD - not a candidate for PT at this time. Will place her on hold. Will await new orders before PT is resumed.
[2020-11-30 14:36] LABS: Glucose Point of Care 97 (65-105)
--- NOTE | 2020-11-30 14:47 | PM.IMPN ---
Progress Note: A&P Assessment and Plan (1) Aspiration pneumonia: Qualifiers: Aspiration pneumonia type: unspecified Laterality: bilateral Lung location: lower lobe of lung Qualified Code(s): J69.0 - Pneumonitis due to inhalation of food and vomit Code(s): J69.0 - Pneumonitis due to inhalation of food and vomit Status: Acute Assessment and Plan: Clinically patient is improving. Will repeat chest x-ray in the morning. Will continue with IV antibiotics 11/30/20 14:47 11/27 80-year-old female being treated with aspiration pneumonia being treated with Unasyn 3 g every 6 hours, states feeling little better chest x-ray on 11/22 showed left lower lobe infiltrate and consolidation, repeat chest x-ray showed improvement seen by pulmonology concerned patient is not wearing her BiPAP and will bring BiPAP from home by her family, will continue present managed appreciate input a skip load driver and further recommendation to follow. 11/26 patient family had brought trilogy from and patient more last night but states this morning this see does not feel well as the trilogy was not working very well, patient was seen pulmonology and review of the data from the trilogy recommended to continue new settings, repeat chest x-ray on 11/25 showed improvement in pneumonia patient is being treated with Unasyn for aspiration pneumonia will continue present and further recommendation to follow. 11/27 patient is clinically stable and does not have any new complaint, patient is off Unasyn and Solu-Medrol, will continue vancomycin until 11/30 discussed with the pulmonology suspect patient prognosis is poor prognosis high risk of recurrent aspiration pneumonia as patient is not able to swallow and her cough reflex a very poor recommending possible comfort care or hospice, did discuss with the patient will discuss with the patient's daughter and further recommendation to follow. 11/28 patient has no new complaint, patient clinically stable off Unasyn, plan is to continue vancomycin and patient will finish last dose on 11/30 and plan is to discharge the patient home with home health. 11/29 today patient appears more somnolent states not feeling well, patient's vitals are stable there is no fever and requiring 2 L of oxygen her baseline, will get the patient updraft, will continue to monitor and patient received her last dose of vancomycin tomorrow and plan is to discharge the patient home. 04/03 yesterday late night patient became somnolent ABG showed elevated CO2 99.4 and patient was intubated and transferred to ICU, repeat ABG showed much improved with CO2 57.5 on ventilator, suspect multifactorial as patient is morbidly obese and hypoventilating as well as volume overload patient is being diuresed and on vent will continue to monitor, initial plan was to discharge the patient today as she will finish her vancomycin however will continue to monitor in ICU and seen by educational interpreter and appreciate. (2) Insulin dependent diabetes mellitus: Status: Acute Assessment and Plan: 1800 calorie restricted carb consist Accu-Cheks a.c. and HS insulin sliding scale as needed (3) Multilobar lung infiltrate: Code(s): R91.8 - Other nonspecific abnormal finding of lung field Status: Acute Assessment and Plan: Clinically improving. Will continue nebulizer treatment. Continue antibiotics. Repeat chest x-ray in the morning. (4) CKD (chronic kidney disease): Code(s): N18.9 - Chronic kidney disease, unspecified Status: Acute Assessment and Plan: continue to monitor or BUN and creatinine (5) Chronic respiratory failure with hypoxia: Code(s): J96.11 - Chronic respiratory failure with hypoxia Status: Acute Assessment and Plan: on supplemental O2 appreciate pulmonology note EF low to 35 %, comapared to one from jun 2020. consulted cardiology. apprecaite their recs (6) Acute on chronic diastolic CHF
[2020-11-30] MEDS: LORazepam INJ (*CRX) 2 MG/ML VIAL IV PUSH (15:22)
[2020-11-30] MEDS: levETIRAcetam 1000MG/NACL100ML 1,000 MG/100 ML BAG 400 MG IVPB (16:08)
[2020-11-30 16:20] LABS: Glucose Point of Care 84 (65-105)
[2020-11-30 17:36] LABS: Glucose Point of Care 115 (65-105)
[2020-11-30] MEDS: PROPOFOL IV EMULSION 100 ML 10.61 MG IV CONT (17:40)
[2020-11-30] MEDS: FENTANYL 2,500MCG/NS250ML(*CRX 2,500 MCG/250 ML BAG 12.5 MCG IV CONT (19:58)
--- NOTE | 2020-11-30 20:00 | PC.NURSE ---
Versed gtt off and taken down by dayshilaith RN. Still shows as transfusing on EMAR at this time.
[2020-11-30] MEDS: TIZANIDINE HCL 4 MG TABLET PO (20:45)
[2020-11-30] MEDS: ALBUTEROL SULFATE NEB 2.5 MG/0.5 ML INH INHALATION (20:48)
[2020-11-30 23:40] LABS: Glucose Point of Care 139 (65-105)
[2020-12-01] VITALS (33 sets, daily range): BP systolic 77–144; BP diastolic 37–77; PULSE 43–82; RESP 12–17; TEMP 35.9–37.3; O2SAT 93–100
[2020-12-01] MEDS: MIDAZOLAM 100MG/NS 100ML(*CRX) 100 MG/100 ML BAG IV CONT (00:42)
[2020-12-01 04:27] LABS: Alveolar/Arterial O2 Gradient 165.5 mmHg; Base Excess ABG 14.4 mEq/l (+/-2.0); Carboxyhemoglobin 0.3 % THb (0-2.0); Fractional Inspired Oxygen 40 %; HCO3 ABG 37.8 mEq/l (22.0-26.0); Methemoglobin ABG 0.4 %THb (0-1.5); Oxygen Content ABG 15.1 %vol (16.0-22.0); Oxygen Saturation ABG 96.2 % (95.0-100.0); Oxyhemoglobin 93.8 % THb (90.0-100.0); PO2 ABG 71.4 mmHg (80.0-100.0); PO2 FiO2 Ratio Arterial Blood 1.79 %; Reduced Hemoglobin 5.5 %THb (0-5.0); Total Hemoglobin 11.4 g/dL (12.0-18.0)
[2020-12-01 04:29] LABS: Arterial Blood Gas PEEP 5 cmH2O; Arterial Blood Gas Tidal Volume 430 ml; Arterial Blood Gas Vent Mode CMV; Arterial Blood Gas Ventilator rate 15 /MIN; Device VENTILATOR; Modified Allen's Test Pass; Site Drawn LEFT RADIAL; pH ABG 7.572 (7.350-7.450)
[2020-12-01 04:47] LABS: Hematocrit 28.8 % (37.0-47.0); Hemoglobin 8.7 g/dL (12.0-15.0); Mean Corpuscular HGB Conc 30.2 g/dl (32-36); Mean Corpuscular Hemoglobin 28.2 pg (26-34); Mean Corpuscular Volume 93.2 fl (80-100); Mean Platelet Volume 12.6 fl (7.4-10.4); Platelet Count Result 147 k/mm3 (150-375); Red Blood Count 3.09 M/mm3 (4.2-5.4); Red Cell Distribution Width 16.8 % (11.5-14.5); White Blood Count 8.2 K/mm3 (4.5-10.0)
[2020-12-01] MEDS: CENTRAL LINE FLUSH 10 ML IV PUSH ×3 (04:48→20:55)
[2020-12-01 05:47] LABS: Blood Urea Nitrogen 27 mg/dL (7-17); Calcium 8.6 mg/dL (8.4-10.2); Carbon Dioxide > 40 mmol/L (22-30); Chloride 93 mmol/L (98-107); Estimated CRCL calculation 33 ml/min; Estimated Glomerular Filt Rate 31; Glucose 160 mg/dL (65-105); Magnesium 1.5 mg/dL (1.6-2.3); Phosphorus 1.9 mg/dL (2.5-4.5); Potassium 2.7 mmol/L (3.4-5.0); Sodium 138 mmol/L (137-145)
[2020-12-01] MEDS: POTASSIUM PHOS,M-BASIC-D-BASIC 20 MMOL in SODIUM CHLORIDE 0.9% IV 250 ML 62.5 MMOL IVPB (06:29)
[2020-12-01] MEDS: MAGNESIUM SULF 1 GM/D5W 100 ML 1 GM/100 ML BAG IVPB (06:30)
[2020-12-01] MEDS: PREGABALIN (*CRX) 50 MG CAPSULE 200 MG PO (08:52)
[2020-12-01] MEDS: MAGNESIUM OXIDE 400 MG TABLET PO (08:54)
[2020-12-01] MEDS: CLOPIDOGREL BISULFATE 75 MG TABLET PO (08:54)
[2020-12-01] MEDS: FERROUS SULFATE 324 MG TABLET PO ×2 (08:54→15:47)
[2020-12-01] MEDS: LIDOCAINE 5% PATCH 1 PATCH TRANSDERM (08:55)
[2020-12-01] MEDS: PANTOPRAZOLE SODIUM IV 40 MG VIAL IV PUSH (08:55)
[2020-12-01] MEDS: APIXABAN 5 MG TABLET PO ×2 (08:55→20:55)
[2020-12-01] MEDS: EUCERIN CREAM 120 GM JAR 1 APPLIC TOPICAL (08:55)
[2020-12-01] MEDS: ATORVASTATIN 40 MG TABLET 80 MG PO (08:55)
[2020-12-01] MEDS: COLCHICINE 0.6 MG TABLET PO ×2 (08:55→15:47)
[2020-12-01] MEDS: FENOFIBRATE NANOCRYSTALLIZED 145 MG TABLET PO (08:55)
[2020-12-01] MEDS: TOLNAFTATE 1% POWDER 45 GM BTL 1 APPLIC TOPICAL ×2 (08:56→20:54)
[2020-12-01] MEDS: SACCHAROMYCES BOULARDII 250 MG CAPSULE PO ×2 (08:56→15:47)
[2020-12-01] MEDS: MAGNESIUM SULF 4 GM/WATER100ML 4 GM/100 ML BAG IVPB (08:59)
[2020-12-01] MEDS: calcitrioL 0.25 MCG CAPSULE PO (08:59)
[2020-12-01] MEDS: acetaZOLAMIDE SODIUM FOR INJ 500 MG VIAL IV PUSH (08:59)
[2020-12-01] MEDS: levETIRAcetam IV 750 MG in DEXTROSE 5% 100 ML 430 MG IVPB ×2 (09:36→20:54)
--- NOTE | 2020-12-01 09:39 | WPDINTPN ---
Progress Note: A&P Assessment and Plan (1) Acute and chronic respiratory failure with hypercapnia: Code(s): J96.22 - Acute and chronic respiratory failure with hypercapnia Status: Acute Assessment and Plan: She does have history of chronic hypoxic and hypercarbic respiratory failure with her pCO2 in mid 60s at her baseline. She uses trilogy at nighttime at her baseline. Continue mechanical ventilation. ABG reviewed. Will adjust vent settings and decrease tidal volume to 380 and respiratory rate to 12. She has significant alkalosis today which seems to be a combination of metabolic as well as respiratory. Her baseline pCO2 is in mid 60s and today it was 42. She is being diuresed aggressively with Lasix as well. She requiring FiO2 of 40% and PEEP of 5. Low tidal volume strategies should be employed. Follow ABG and chest x-ray. Sedated with fentanyl and Versed. Daily sedation vacation trial. SBT trial once appropriate. She still hypervolemic and not appropriate for SBT trial today. Try to extubate her if she does well with SBT trial in the next few days. (2) Acute on chronic diastolic CHF (congestive heart failure): Code(s): I50.33 - Acute on chronic diastolic (congestive) heart failure Status: Acute Assessment and Plan: Her clinical presentation and exam is suggestive of significant fluid overload. Chest x-ray showed pulmonary edema as well. I will continue diuresing her is she still having significant fluid overload based on clinical examination as well as chest x-ray showing significant pulmonary edema. She has developed significant alkalosis which is a combination of metabolic and will is respiratory alkalosis. I will give her a few doses of acetazolamide. Cardiology follow-up. Strict intake output record and daily weight. Continue to monitor renal parameters and electrolytes. (3) Coag negative Staphylococcus bacteremia: Code(s): R78.81 - Bacteremia; B95.7 - Other staphylococcus as the cause of diseases classified elsewhere Status: Acute Assessment and Plan: Infectious disease service follow-up. She has finished vancomycin dose and will stop it today. (4) Atrial fibrillation with controlled ventricular response: Code(s): I48.91 - Unspecified atrial fibrillation Status: Acute Assessment and Plan: Currently rate is well controlled. Her heart rate is in 40s when she is deeply asleep but mostly in 50s and 60s. Metoprolol has been put on hold because of hypotension. Continue apixaban for now. (5) Aspiration pneumonia: Qualifiers: Aspiration pneumonia type: unspecified Laterality: bilateral Lung location: lower lobe of lung Qualified Code(s): J69.0 - Pneumonitis due to inhalation of food and vomit Code(s): J69.0 - Pneumonitis due to inhalation of food and vomit Status: Acute Assessment and Plan: Completed a course of Unasyn on 11/26. I reviewed chest x-ray which is suggestive of fluid overload rather than another episode of aspiration pneumonitis/pneumonia. Hold off antibiotics for now. Procalcitonin level is pending. (6) COPD exacerbation: Code(s): J44.1 - Chronic obstructive pulmonary disease with (acute) exacerbation Status: Acute Assessment and Plan: She is not actively wheezing now. Hold of steroid. She completed a course of steroid already. Continue bronchodilator. (7) RONAL (obstructive sleep apnea): Code(s): G47.33 - Obstructive sleep apnea (adult) (pediatric) Status: Acute Assessment and Plan: Currently intubated. She will resume her trilogy at nighttime once extubated. (8) Morbid obesity with BMI of 40.0-44.9, adult: Code(s): E66.01 - Morbid (severe) obesity due to excess calories; Z68.41 - Body mass index [BMI]40.0-44.9, adult Status: Acute Assessment and Plan: Continue to monitor (9) Chronic kidney disease, stage 3:
[2020-12-01 10:09] LABS: Glucose Point of Care 148 (65-105)
--- NOTE | 2020-12-01 10:33 | WPDNEURCNPN ---
Assessment and Plan Assessment and plan (1) Seizure: Code(s): R56.9 - Unspecified convulsions Status: Acute Additional Plan metabolic encephalopathy superimposed by elective sedation, daughter is concerned about the possibility of the seizure because patient has had intermittent tremors of the upper and lower extremities in the past over the last 1 year present patient is covered with Keppra [address] scan of the head has been negative for the bleed no further neurological intervention is necessary she is satisfied if any further question arises please do not hesitate to contact me Consult date: 12/01/20 Time Seen: 10:15 HPI: Chandni Vicente is a 80 year old female Admitted to the hospital through the emergency room for the difficulties in breathing in addition to the ongoing diagnosis of 1. Diastolic heart failure 2. Obstructive sleep apnea for which she is on CPAP at night 3. Chronic obstructive pulmonary disease 4. Dyslipidemia 5. Gout 6. Hypertension 7. Chronic kidney disease 8. Coronary artery disease 9. Peripheral neuropathy secondary to insulin-dependent diabetes mellitus and 10. Chronic anemia. Neurology consultation has been obtained because patient had a seizure. 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 Her CBC at this stage reveals WBC 82 hemoglobin 8.7 and platelet count of 147, all the cultures report have been reviewed particularly the positive blood culture for coag-negative staphylococcal us on blood, patient is covered with the apixaban 5 mg q.12 hours in addition to clopidogrel 75 mg daily and insulin for her diabetes, daughter was concerned because patient has had over the last 1 year intermittent shaking or so-called jerks which she was not sure whether they were seizures or not but at this stage she wants to understand with that she had a seizure or not and also because EEG has not been done as yet Review of Systems Review of Systems: All systems reviewed & are unremarkable except as noted in HPI and below PMFSH Past Medical History Medical History Anxiety Atrial fibrillation Chads Vasc 2 is 7 although she is not on long-term anticoagulation. Chronic anemia Chronic kidney disease, stage 3 Baseline creatinine is between 1.3 and 1.50. Chronic obstructive pulmonary disease Chronic pain Chronic respiratory failure with hypoxia On 2 to 3 L nasal cannula. Congestive heart failure Echocardiogram on 06/07/2020 showed grade 2 diastolic dysfunction, ejection fraction of 55 to 60%, moderate aortic stenosis, and moderate pulmonary hypertension without wall motion abnormalities. Coronary artery disease Status post angioplasty status stent to the mid LAD on 06/13/[address] Rodarte. COVID-19 (~05/2020) Depression Fibromyalgia Gastritis (~08/19/20) Gastroesophageal reflux disease Gout Hyperlipidemia Hypertension Insulin dependent type 2 diabetes mellitus Complicated by diabetic peripheral neuropathy. Hemoglobin A1c was 5.2% in July 2020. Large hiatal hernia Noted on EGD in July [address] Chaudhari. Left bundle branch block Obstructive sleep apnea Pneumonia Recurrent urinary tract infection Sinus bradycardia Surgical History Surgical History History of coronary artery stent placement (~06/13/20) Family History Family History Mother Acute myocardial infarction Other Diabetes mellitus Hypertension Social History Social History Social History: Surrogate decision maker: Theron Vicente, spouse. Code status: Full code. Smoking packs per day: 1 Smoking cigarettes per day: 20.0 Years smoked: 40 Smoking pack-years: 40.00 Smoking status: Former smoker Second hand tobacco s
[2020-12-01] MEDS: FUROSEMIDE INJ 40 MG/4 ML VIAL IV PUSH (10:45)
--- NOTE | 2020-12-01 12:14 | PM.IMPN ---
Progress Note: A&P Assessment and Plan (1) Aspiration pneumonia: Qualifiers: Aspiration pneumonia type: unspecified Laterality: bilateral Lung location: lower lobe of lung Qualified Code(s): J69.0 - Pneumonitis due to inhalation of food and vomit Code(s): J69.0 - Pneumonitis due to inhalation of food and vomit Status: Acute Assessment and Plan: Clinically patient is improving. Will repeat chest x-ray in the morning. Will continue with IV antibiotics 12/01/20 12:14 80-year-old female being treated with aspiration pneumonia being treated with Unasyn 3 g every 6 hours, states feeling little better chest x-ray on 11/22 showed left lower lobe infiltrate and consolidation, repeat chest x-ray showed improvement seen by pulmonology concerned patient is not wearing her BiPAP and will bring BiPAP from home by her family, will continue present managed appreciate input a cosmetic sales consultant and further recommendation to follow. 11/26 patient family had brought trilogy from and patient more last night but states this morning this see does not feel well as the trilogy was not working very well, patient was seen pulmonology and review of the data from the trilogy recommended to continue new settings, repeat chest x-ray on 11/25 showed improvement in pneumonia patient is being treated with Unasyn for aspiration pneumonia will continue present and further recommendation to follow. 11/27 patient is clinically stable and does not have any new complaint, patient is off Unasyn and Solu-Medrol, will continue vancomycin until 11/30 discussed with the pulmonology suspect patient prognosis is poor prognosis high risk of recurrent aspiration pneumonia as patient is not able to swallow and her cough reflex a very poor recommending possible comfort care or hospice, did discuss with the patient will discuss with the patient's daughter and further recommendation to follow. 11/28 patient has no new complaint, patient clinically stable off Unasyn, plan is to continue vancomycin and patient will finish last dose on 11/30 and plan is to discharge the patient home with home health. 11/29 today patient appears more somnolent states not feeling well, patient's vitals are stable there is no fever and requiring 2 L of oxygen her baseline, will get the patient updraft, will continue to monitor and patient received her last dose of vancomycin tomorrow and plan is to discharge the patient home. 11/30 yesterday late night patient became somnolent ABG showed elevated CO2 99.4 and patient was intubated and transferred to ICU, repeat ABG showed much improved with CO2 57.5 on ventilator, suspect multifactorial as patient is morbidly obese and hypoventilating as well as volume overload patient is being diuresed and on vent will continue to monitor, initial plan was to discharge the patient today as she will finish her vancomycin however will continue to monitor in ICU and seen by lacquer mixer and satnam. 12/01 on 11/30 patient went into hypercapnic respiratory failure and patient was intubated and placed on vent, was clinically stable however late after patient developed what appeared to be seizure-like activity patient was given Ativan with slight improvement, CT scan of the head was negative for any acute injury, lacquer mixer was contacted patient was started on IV Keppra 750 b.i.d., tube feeding was started is patient was also hypoglycemic, today patient was seen neurology and discussed with her daughter apparently patient has history of tremors for over a year now and neurologist suspect most likely patient had a tremors, EEGs pending and further recommendation to follow, patient be seen by intensive and satnam, patient completed her course of vancomycin for coagulase-negative Staph aureus on 11/30. (2) Insulin dependent diabetes mellitus: Status: Acute Assessment and Plan: 1800 calorie restricted carb consist Accu-Cheks a.c. and HS insulin sliding scale
[2020-12-01] MEDS: FENTANYL 2,500MCG/NS250ML(*CRX 2,500 MCG/250 ML BAG 12.5 MCG IV CONT (15:47)
[2020-12-01 16:10] LABS: Blood Urea Nitrogen 25 mg/dL (7-17); Calcium 8.4 mg/dL (8.4-10.2); Carbon Dioxide > 40 mmol/L (22-30); Chloride 95 mmol/L (98-107); Estimated CRCL calculation 33 ml/min; Estimated Glomerular Filt Rate 31; Glucose 159 mg/dL (65-105); Potassium 3.7 mmol/L (3.4-5.0); Sodium 140 mmol/L (137-145)
[2020-12-01] MEDS: TIZANIDINE HCL 4 MG TABLET PO (20:58)
[2020-12-02] VITALS (52 sets, daily range): BP systolic 65–146; BP diastolic 37–83; PULSE 40–92; RESP 12–22; TEMP 36.6–38.3; O2SAT 93–100; BMI 43.4
[2020-12-02] MEDS: ATROPINE SULFATE 1 MG/10 ML SYRINGE 0.5 MG IV PUSH (00:02)
[2020-12-02 00:05] LABS: Glucose Point of Care 147 (65-105)
[2020-12-02 01:18] LABS: Blood Urea Nitrogen 24 mg/dL (7-17); Carbon Dioxide > 40 mmol/L (22-30); Chloride 96 mmol/L (98-107); Estimated CRCL calculation 35 ml/min; Estimated Glomerular Filt Rate 34; Glucose 155 mg/dL (65-105); Magnesium 2.3 mg/dL (1.6-2.3); Phosphorus 3.8 mg/dL (2.5-4.5); Potassium 3.1 mmol/L (3.4-5.0); Sodium 138 mmol/L (137-145)
[2020-12-02] MEDS: ALBUTEROL SULFATE NEB 2.5 MG/0.5 ML INH INHALATION ×2 (02:15→20:00)
[2020-12-02 05:23] LABS: Alveolar/Arterial O2 Gradient 81.6 mmHg; Base Excess ABG 12.5 mEq/l (+/-2.0); Carboxyhemoglobin 0.3 % THb (0-2.0); Fractional Inspired Oxygen 30 %; HCO3 ABG 38.3 mEq/l (22.0-26.0); Methemoglobin ABG 0.3 %THb (0-1.5); Oxygen Content ABG 13.9 %vol (16.0-22.0); Oxygen Saturation ABG 93.7 % (95.0-100.0); PCO2 ABG 55.7 mmHg (35.0-45.0); PO2 ABG 66.9 mmHg (80.0-100.0); PO2 FiO2 Ratio Arterial Blood 2.23 %; Reduced Hemoglobin 7.4 %THb (0-5.0); Total Hemoglobin 10.7 g/dL (12.0-18.0); pH ABG 7.455 (7.350-7.450)
[2020-12-02 05:24] LABS: Arterial Blood Gas Vent Mode CMV; Arterial Blood Gas Ventilator rate 12 /MIN; Device VENTILATOR; Modified Allen's Test Unable to perform; Site Drawn RIGHT RADIAL
[2020-12-02 05:25] LABS: Arterial Blood Gas PEEP 5 cmH2O; Arterial Blood Gas Tidal Volume 380 ml
[2020-12-02] MEDS: CENTRAL LINE FLUSH 10 ML IV PUSH ×4 (05:41→17:10)
[2020-12-02 06:43] LABS: Glucose Point of Care 149 (65-105)
[2020-12-02] MEDS: FENOFIBRATE NANOCRYSTALLIZED 145 MG TABLET PO (07:35)
[2020-12-02] MEDS: TOLNAFTATE 1% POWDER 45 GM BTL 1 APPLIC TOPICAL ×2 (07:35→19:45)
[2020-12-02] MEDS: ATORVASTATIN 40 MG TABLET 80 MG PO (07:35)
[2020-12-02] MEDS: APIXABAN 5 MG TABLET PO ×2 (07:36→20:40)
[2020-12-02] MEDS: FERROUS SULFATE 324 MG TABLET PO ×2 (07:36→17:09)
[2020-12-02] MEDS: COLCHICINE 0.6 MG TABLET PO ×2 (07:36→17:09)
[2020-12-02] MEDS: SACCHAROMYCES BOULARDII 250 MG CAPSULE PO ×2 (07:36→17:09)
[2020-12-02] MEDS: calcitrioL 0.25 MCG CAPSULE PO (07:36)
[2020-12-02] MEDS: PANTOPRAZOLE SODIUM IV 40 MG VIAL IV PUSH (07:36)
[2020-12-02] MEDS: CLOPIDOGREL BISULFATE 75 MG TABLET PO (07:36)
[2020-12-02] MEDS: LIDOCAINE 5% PATCH 1 PATCH TRANSDERM (07:37)
[2020-12-02] MEDS: acetaZOLAMIDE SODIUM FOR INJ 500 MG VIAL IV PUSH (07:37)
[2020-12-02] MEDS: MAGNESIUM OXIDE 400 MG TABLET PO (07:37)
[2020-12-02] MEDS: EUCERIN CREAM 120 GM JAR 1 APPLIC TOPICAL (07:38)
[2020-12-02] MEDS: levETIRAcetam IV 750 MG in DEXTROSE 5% 100 ML 430 MG IVPB (07:43)
[2020-12-02] MEDS: FUROSEMIDE INJ 100 MG/10 ML VIAL 80 MG IV PUSH (07:47)
[2020-12-02 08:05] LABS: Glucose Point of Care 144 (65-105)
[2020-12-02] MEDS: NOREPINEPHRINE 8 MG/D5W 250 ML 8 MG/250 ML BAG 1.88 MG IV CONT (10:51)
--- NOTE | 2020-12-02 11:04 | PM.PNCARD ---
Progress Note: A&P Assessment and Plan (1) CHF (congestive heart failure): Code(s): I50.9 - Heart failure, unspecified Status: Acute Assessment and Plan: Her ECHO done few days ago and read by Dr. Quintana suggests moderate LV systolic dysfunction (LVEF 35%). Previous ECHO showed normal LV systolic function and diastolic dysfunction. It was done in 06/18. Pt had COVID pneumonia in Jul 2020. 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 Not on JANET-I due to CRF. She may benefit from further cardiac evaluation on outpatient basis when recovers from current medical condition. Recently, patient currently had atypical chest pain with lower central chest wall tenderness on palpation. She is a difficult historian but she has been coughing recently per nursing staff and has had intermittent chest pain for several days with repeat troponin I negative this admission 11/28/2020. EKG with Atrial fibrillation with moderate ventricular response and left bundle-branch block. This admission, she had hypercapnic respiratory failure requiring transfer to the ICU subsequently. She is intubated and sedated with FiO2 30%. She is undergoing neurologic evaluation with consideration of possible seizure activity. She does have history of chronic hypoxic and hypercarbic respiratory failure with her pCO2 in mid 60s at her baseline. She uses Trilogy at nighttime at her baseline. As tolerated by blood pressure, continue diuresis with Lasix 80 mg IV on 12/02/2020 given small bilateral pleural effusions and pulmonary congestion on chest x-ray. Wean low-dose Levophed as tolerated. (2) Aspiration pneumonia: Qualifiers: Aspiration pneumonia type: unspecified Laterality: bilateral Lung location: lower lobe of lung Qualified Code(s): J69.0 - Pneumonitis due to inhalation of food and vomit Code(s): J69.0 - Pneumonitis due to inhalation of food and vomit Status: Acute Assessment and Plan: -Management as per primary service. (3) Insulin dependent diabetes mellitus: Status: Acute (4) CKD (chronic kidney disease): Code(s): N18.9 - Chronic kidney disease, unspecified Status: Acute Assessment and Plan: Continue close monitoring of renal function and electrolytes. (5) Atrial fibrillation with controlled ventricular response: Code(s): I48.91 - Unspecified atrial fibrillation Status: Acute Assessment and Plan: Pt is in AFIB with moderate ventricular response. HR well controlled off metoprolol while on pressor support. Heart rate went into the mid 40s on occasion but is currently improved. cont current meds including anticoagulation Subjective Date/time seen: 12/02/20 11:04 Patient intubated and sedated in the ICU, where she was transferred for hypercapnic respiratory failure. She is nonverbal with generalized mild tremors. Patient was seen and examined, chart reviewed, case discussed with nurse. Exam Const: General: ill appearing; No acute distress Other: Intubated and sedated. HENMT: Head: normal to inspection and atraumatic Ears: hearing grossly normal bilaterally Face and sinus: normal facial exam Eyes: General: appearance normal, both eyes and all related structures Pupils: Equal, round and reactive pupils present EOM: EOMs intact bilaterally Neck: Neck: normal visual inspection and no JVD Chest: Chest palpation & inspection: normal inspection of the chest Resp: Effort & Inspection: normal respiratory effort, no respiratory distress and prolonged expiratory phase Auscultation: rales Other: Diminished breath sounds bilaterally, without crackles but with mild diffuse wheezing. Cardio: Jugular venous distension: no JVD Rate: other Rhythm: other (irregularly irregular) Heart sounds: Murmur heart sound present systolic Other: GI: Inspection: normal to inspection Auscultation: normal bowel sounds Skin: General skin exam: normal color Neuro: Other:
[2020-12-02 11:17] LABS: Glucose Point of Care 141 (65-105)
[2020-12-02] MEDS: MIDAZOLAM 100MG/NS 100ML(*CRX) 100 MG/100 ML BAG IV CONT (11:55)
--- NOTE | 2020-12-02 11:58 | WPDINTPN ---
Progress Note: A&P Assessment and Plan (1) Acute and chronic respiratory failure with hypercapnia: Code(s): J96.22 - Acute and chronic respiratory failure with hypercapnia Status: Acute Assessment and Plan: She does have history of chronic hypoxic and hypercarbic respiratory failure with her pCO2 in mid 60s at her baseline. She uses trilogy at nighttime at her baseline. Continue mechanical ventilation. ABG reviewed. She is being diuresed aggressively with Lasix as well. She requiring FiO2 of 40% and PEEP of 5. Low tidal volume strategies should be employed. Follow ABG and chest x-ray. Sedated with fentanyl and Versed. Daily sedation vacation trial. She did not tolerate SBT trial today. Continue SBT trial on the daily basis and Try to extubate her if she does well with SBT trial in the next few days. (2) Acute on chronic diastolic CHF (congestive heart failure): Code(s): I50.33 - Acute on chronic diastolic (congestive) heart failure Status: Acute Assessment and Plan: Her clinical presentation and exam is suggestive of significant fluid overload. Chest x-ray showed pulmonary edema. I will continue diuresing her as she still having significant fluid overload based on clinical examination as well as chest x-ray showing significant pulmonary edema. She has developed significant alkalosis with some compensatory respiratory acidosis. I will give her a few doses of acetazolamide. Cardiology follow-up. Cardiology is aware of decrease in her ejection fraction to 35%. Strict intake output record and daily weight. Continue to monitor renal parameters and electrolytes. (3) Coag negative Staphylococcus bacteremia: Code(s): R78.81 - Bacteremia; B95.7 - Other staphylococcus as the cause of diseases classified elsewhere Status: Acute Assessment and Plan: Infectious disease service follow-up. She has finished vancomycin dose. Monitor her of steroid and continue to monitor fever curve and WBC count. (4) Atrial fibrillation with controlled ventricular response: Code(s): I48.91 - Unspecified atrial fibrillation Status: Acute Assessment and Plan: Currently rate is well controlled. Her heart rate is in 40s when she is deeply asleep but mostly in 50s and 60s. Metoprolol has been put on hold because of hypotension. Continue apixaban for now. (5) Aspiration pneumonia: Qualifiers: Aspiration pneumonia type: unspecified Laterality: bilateral Lung location: lower lobe of lung Qualified Code(s): J69.0 - Pneumonitis due to inhalation of food and vomit Code(s): J69.0 - Pneumonitis due to inhalation of food and vomit Status: Acute Assessment and Plan: Completed a course of Unasyn on 11/26. I reviewed chest x-ray which is suggestive of fluid overload rather than another episode of aspiration pneumonitis/pneumonia. Hold off antibiotics for now. Procalcitonin level is pending. (6) COPD exacerbation: Code(s): J44.1 - Chronic obstructive pulmonary disease with (acute) exacerbation Status: Acute Assessment and Plan: She is not actively wheezing now. Hold of steroid. She has completed a course of steroid already. Continue bronchodilator. (7) RONAL (obstructive sleep apnea): Code(s): G47.33 - Obstructive sleep apnea (adult) (pediatric) Status: Acute Assessment and Plan: Currently intubated. She will resume her trilogy at nighttime once extubated. (8) Morbid obesity with BMI of 40.0-44.9, adult: Code(s): E66.01 - Morbid (severe) obesity due to excess calories; Z68.41 - Body mass index [BMI]40.0-44.9, adult Status: Acute Assessment and Plan: Continue to monitor (9) Chronic kidney disease, stage 3: Code(s): N18.30 - Chronic kidney disease, stage 3 unspecified Status: Acute Assessment and Plan: Continue to monitor. Renal parameters are i
[2020-12-02] MEDS: FENTANYL 2,500MCG/NS250ML(*CRX 2,500 MCG/250 ML BAG IV CONT (12:10)
[2020-12-02 14:23] LABS: Hematocrit 29.3 % (37.0-47.0); Hemoglobin 8.7 g/dL (12.0-15.0); Mean Corpuscular HGB Conc 29.7 g/dl (32-36); Mean Corpuscular Hemoglobin 27.9 pg (26-34); Mean Corpuscular Volume 93.9 fl (80-100); Mean Platelet Volume 12.8 fl (7.4-10.4); Platelet Count Result 168 k/mm3 (150-375); Red Blood Count 3.12 M/mm3 (4.2-5.4); Red Cell Distribution Width 17.7 % (11.5-14.5); White Blood Count 6.7 K/mm3 (4.5-10.0)
[2020-12-02 14:35] LABS: Blood Urea Nitrogen 22 mg/dL (7-17); Calcium 8.4 mg/dL (8.4-10.2); Carbon Dioxide > 40 mmol/L (22-30); Chloride 96 mmol/L (98-107); Estimated CRCL calculation 33 ml/min; Estimated Glomerular Filt Rate 31; Glucose 142 mg/dL (65-105); Magnesium 2.2 mg/dL (1.6-2.3); Phosphorus 3.7 mg/dL (2.5-4.5); Potassium 3.5 mmol/L (3.4-5.0); Sodium 138 mmol/L (137-145)
--- NOTE | 2020-12-02 14:49 | PM.IMPN ---
Progress Note: A&P Assessment and Plan (1) Aspiration pneumonia: Qualifiers: Aspiration pneumonia type: unspecified Laterality: bilateral Lung location: lower lobe of lung Qualified Code(s): J69.0 - Pneumonitis due to inhalation of food and vomit Code(s): J69.0 - Pneumonitis due to inhalation of food and vomit Status: Acute Assessment and Plan: Clinically patient is improving. Will repeat chest x-ray in the morning. Will continue with IV antibiotics 12/02/20 14:49 80-year-old female being treated with aspiration pneumonia being treated with Unasyn 3 g every 6 hours, states feeling little better chest x-ray on 11/22 showed left lower lobe infiltrate and consolidation, repeat chest x-ray showed improvement seen by pulmonology concerned patient is not wearing her BiPAP and will bring BiPAP from home by her family, will continue present managed appreciate input a study manager and further recommendation to follow. 11/26 patient family had brought trilogy from and patient more last night but states this morning this see does not feel well as the trilogy was not working very well, patient was seen pulmonology and review of the data from the trilogy recommended to continue new settings, repeat chest x-ray on 11/25 showed improvement in pneumonia patient is being treated with Unasyn for aspiration pneumonia will continue present and further recommendation to follow. 11/27 patient is clinically stable and does not have any new complaint, patient is off Unasyn and Solu-Medrol, will continue vancomycin until 11/30 discussed with the pulmonology suspect patient prognosis is poor prognosis high risk of recurrent aspiration pneumonia as patient is not able to swallow and her cough reflex a very poor recommending possible comfort care or hospice, did discuss with the patient will discuss with the patient's daughter and further recommendation to follow. 11/28 patient has no new complaint, patient clinically stable off Unasyn, plan is to continue vancomycin and patient will finish last dose on 11/30 and plan is to discharge the patient home with home health. 11/29 today patient appears more somnolent states not feeling well, patient's vitals are stable there is no fever and requiring 2 L of oxygen her baseline, will get the patient updraft, will continue to monitor and patient received her last dose of vancomycin tomorrow and plan is to discharge the patient home. 11/30 yesterday late night patient became somnolent ABG showed elevated CO2 99.4 and patient was intubated and transferred to ICU, repeat ABG showed much improved with CO2 57.5 on ventilator, suspect multifactorial as patient is morbidly obese and hypoventilating as well as volume overload patient is being diuresed and on vent will continue to monitor, initial plan was to discharge the patient today as she will finish her vancomycin however will continue to monitor in ICU and seen by beef cattle grazier and satnam. 12/01 on 11/30 patient went into hypercapnic respiratory failure and patient was intubated and placed on vent, was clinically stable however late after patient developed what appeared to be seizure-like activity patient was given Ativan with slight improvement, CT scan of the head was negative for any acute injury, beef cattle grazier was contacted patient was started on IV Keppra 750 b.i.d., tube feeding was started is patient was also hypoglycemic, today patient was seen neurology and discussed with her daughter apparently patient has history of tremors for over a year now and neurologist suspect most likely patient had a tremors, EEGs pending and further recommendation to follow, patient be seen by intensive and satnam, patient completed her course of vancomycin for coagulase-negative Staph aureus on 11/30. 12/02 plan was to transfer the patient to [facility] at family request and was waiting for the bed however patient still waiting, no seizure activity, will continue to monitor
[2020-12-02 17:14] LABS: Glucose Point of Care 152 (65-105)
--- NOTE | 2020-12-02 17:53 | PM.TDS ---
Transfer Discharge Sum: Prov Provider Date of admission: 11/18/20 14:18 Primary care physician: Kan Husain, MD Admitting clinician: Alicia Plummer DO Consults: 11/18/20 Consult to Physician Routine Comment: Spoke to Dr @ 15:19 (,) Consulting Provider: Saira Borja director call/MD group to consult: pulmonology Dr. 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 VELASCO NOTIFIED Consulting Provider: Govind Velasco director call/MD group to consult: TAM Reason for consultation: NEW ONSET SEIZURES Has provider been notified: Yes 11/30/20 00:12 Consult to Physician Routine Comment: Consulting Provider: Vincent Blancas director call/MD group to consult: Dr. Blancas Reason for consultation: ICU transfer Has provider been notified: Yes Transfer Discharge Sum: Med Medications Active and Home Medications: Home Medications amlodipine 5 mg PO DAILY 06/07/20 [History Confirmed 11/17/20] atorvastatin 80 mg PO DAILY 06/07/20 [History Confirmed 11/17/20] biotin 1 mg PO DAILY 06/07/20 [History Confirmed 11/17/20] calcitriol 0.25 mcg PO DAILY 06/07/20 [History Confirmed 11/17/20] cranberry extract 250 mg PO DAILY 06/07/20 [History Confirmed 11/17/20] fenofibrate nanocrystallized 145 mg PO DAILY 06/07/20 [History Confirmed 11/17/20] isosorbide mononitrate 30 mg PO DAILY 06/07/20 [History Confirmed 11/17/20] pantoprazole 40 mg PO DAILY 06/07/20 [History Confirmed 11/17/20] pregabalin 200 mg PO BID 06/07/20 [History Confirmed 11/17/20] Aloe [place] Antifungal (micon) 1 applic TOPICAL Q12HR #1692 g 06/16/20 [Rx Confirmed 11/17/20] Lantus Solostar U-100 Insulin 10 unit SUBCUT DAILY #0 ml 06/16/20 [Rx Confirmed 11/17/20] Minerin Creme 1 applic TOPICAL QAM #454 g 06/16/20 [Rx Confirmed 11/17/20] albuterol sulfate [ProAir HFA] 2 puff INHALATION Q4-6H PRN #0 g 06/16/20 [Rx Confirmed 11/17/20] clopidogrel 75 mg PO QAM #30 tablet 06/16/20 [Rx Confirmed 11/17/20] ferrous sulfate 324 mg PO BIDWM #60 tablet 06/16/20 [Rx Confirmed 11/17/20] nitroglycerin [Nitrostat] 0.4 mg SUBLINGUAL Q5MIN PRN #20 tablet 06/16/20 [Rx Confirmed 11/17/20] tizanidine 4 mg PO HS #0 tablet 06/16/20 [Rx Confirmed 11/17/20] tizanidine 4 mg PO BID PRN 06/19/20 [History Confirmed 11/17/20] budesonide-formoterol [Symbicort] 2 puff INHALATION Q12HRT #1 puff 06/23/20 [Rx Confirmed 11/17/20] colchicine 0.6 mg PO BID #14 cap 06/23/20 [Rx Confirmed 11/17/20] hydralazine 25 mg PO BID #60 tablet 06/23/20 [Rx Confirmed 11/17/20] lidocaine [Lidoderm] 1 patch TRANSDERMAL DAILY #10 ea 06/23/20 [Rx Confirmed 11/17/20] magnesium oxide 400 mg PO QAM #30 tablet 06/23/20 [Rx Confirmed 11/17/20] albuterol sulfate [Proventil HFA] 4 puff INHALATION QIDRT #1 inh 07/03/20 [Rx Confirmed 11/17/20] apixaban [Eliquis] 5 mg PO Q12HR #60 tablet 09/12/20 [Rx Confirmed 11/17/20] torsemide 40 mg PO DAILY #60 tablet 09/12/20 [Rx Confirmed 11/17/20] Active Medications Acetaminophen (Acetaminophen 325 Mg Tablet) 650 mg PO Q4H PRN PRN Reason: Pain Last
[2020-12-02] MEDS: TIZANIDINE HCL 4 MG TABLET PO (20:40)
[2020-12-02] MEDS: levETIRAcetam 500MG/NACL 100ML 500 MG/100 ML BAG 400 MG IVPB (20:43)
[2020-12-02] MEDS: ACETAMINOPHEN 325 MG TABLET 650 MG PO (21:04)
[2020-12-02] MEDS: CEFEPIME 0.5 GM in DEXTROSE 5% IN WATER 50 ML IVPB (22:37)
[2020-12-03] VITALS (39 sets, daily range): BP systolic 88–164; BP diastolic 36–126; PULSE 33–131; RESP 13–21; TEMP 36.3–37.4; O2SAT 95–100
[2020-12-03 00:45] LABS: Glucose Point of Care 200 (65-105)
[2020-12-03] MEDS: ATROPINE SULFATE 1 MG/10 ML SYRINGE 0.5 MG IV PUSH (01:30)
[2020-12-03 04:54] LABS: Hematocrit 29.9 % (37.0-47.0); Hemoglobin 9.1 g/dL (12.0-15.0); Mean Corpuscular HGB Conc 30.4 g/dl (32-36); Mean Corpuscular Hemoglobin 28.6 pg (26-34); Mean Platelet Volume 12.9 fl (7.4-10.4); Platelet Count Result 162 k/mm3 (150-375); Red Blood Count 3.18 M/mm3 (4.2-5.4); Red Cell Distribution Width 17.2 % (11.5-14.5)
[2020-12-03 05:00] LABS: Alveolar/Arterial O2 Gradient 71.2 mmHg; Base Excess ABG 12.4 mEq/l (+/-2.0); Carboxyhemoglobin 0.3 % THb (0-2.0); Fractional Inspired Oxygen 30 %; HCO3 ABG 38.5 mEq/l (22.0-26.0); Methemoglobin ABG 0.3 %THb (0-1.5); Oxygen Content ABG 14.3 %vol (16.0-22.0); Oxyhemoglobin 93.4 % THb (90.0-100.0); PCO2 ABG 58.4 mmHg (35.0-45.0); PO2 ABG 74.1 mmHg (80.0-100.0); PO2 FiO2 Ratio Arterial Blood 2.47 %; Total Hemoglobin 10.8 g/dL (12.0-18.0); pH ABG 7.437 (7.350-7.450)
[2020-12-03 05:01] LABS: Arterial Blood Gas PEEP 5 cmH2O; Arterial Blood Gas Tidal Volume 380 ml; Arterial Blood Gas Vent Mode CMV; Arterial Blood Gas Ventilator rate 12 /MIN; Device VENTILATOR; Modified Allen's Test Unable to perform; Site Drawn RIGHT RADIAL
[2020-12-03 05:22] LABS: Blood Urea Nitrogen 23 mg/dL (7-17); Calcium 8.2 mg/dL (8.4-10.2); Carbon Dioxide > 40 mmol/L (22-30); Chloride 96 mmol/L (98-107); Estimated CRCL calculation 31 ml/min; Estimated Glomerular Filt Rate 29; Glucose 151 mg/dL (65-105); Magnesium 2.1 mg/dL (1.6-2.3); Phosphorus 4.3 mg/dL (2.5-4.5); Potassium 3.1 mmol/L (3.4-5.0); Sodium 138 mmol/L (137-145)
[2020-12-03] MEDS: CENTRAL LINE FLUSH 10 ML IV PUSH ×3 (06:07→20:26)
[2020-12-03] MEDS: acetaZOLAMIDE SODIUM FOR INJ 500 MG VIAL IV PUSH (08:12)
[2020-12-03] MEDS: FERROUS SULFATE 324 MG TABLET PO ×2 (08:12→16:44)
[2020-12-03] MEDS: APIXABAN 5 MG TABLET PO ×2 (08:13→20:26)
[2020-12-03] MEDS: COLCHICINE 0.6 MG TABLET PO ×2 (08:15→16:44)
[2020-12-03] MEDS: SACCHAROMYCES BOULARDII 250 MG CAPSULE PO ×2 (08:16→16:44)
[2020-12-03] MEDS: ATORVASTATIN 40 MG TABLET 80 MG PO (08:16)
[2020-12-03] MEDS: CLOPIDOGREL BISULFATE 75 MG TABLET PO (08:17)
[2020-12-03] MEDS: MAGNESIUM OXIDE 400 MG TABLET PO (08:17)
[2020-12-03] MEDS: LIDOCAINE 5% PATCH 1 PATCH TRANSDERM (08:17)
[2020-12-03] MEDS: FENOFIBRATE NANOCRYSTALLIZED 145 MG TABLET PO (08:18)
[2020-12-03] MEDS: TOLNAFTATE 1% POWDER 45 GM BTL 1 APPLIC TOPICAL ×2 (08:20→20:26)
[2020-12-03] MEDS: PANTOPRAZOLE SODIUM IV 40 MG VIAL IV PUSH (08:20)
[2020-12-03] MEDS: EUCERIN CREAM 120 GM JAR 1 APPLIC TOPICAL (08:20)
[2020-12-03] MEDS: levETIRAcetam 500MG/NACL 100ML 500 MG/100 ML BAG 400 MG IVPB ×2 (08:37→20:28)
[2020-12-03] MEDS: CEFEPIME 0.5 GM in DEXTROSE 5% IN WATER 50 ML IVPB ×2 (08:37→20:24)
[2020-12-03] MEDS: calcitrioL 0.25 MCG CAPSULE PO (08:45)
[2020-12-03] MEDS: POTASSIUM CHLORIDE 20 MEQ PACKET (FOR LIQUID) 40 MEQ FEED TUBE ×2 (09:45→16:38)
--- NOTE | 2020-12-03 11:11 | PCDIET ---
Nutrition Follow-Up Complete: Nutrition Diagnosis: Inadequate infusion of enteral nutrition related to tube feeding rate as evidenced by ordered rate of 30mL/hr Glucerna 1.2 which provides 792kcal over 22 hours/day versus estimated needs of 1250-1570kcal (80-100% of [place] or roughly 25kcal/kg ideal body weight). Nutrition Goal: Patient to meet estimated nutritional needs. Goal in progress. Patient tolerating Glucerna 1.2 at 30mL/hr with MD order to increase toward goal of 50mL/hr. This will provide 1320kcal, 66g protein and 885mL free water. Recommend continuing 30mL water flush every 4 hours. Last recorded weight is 114.6 kg which is slightly decreased from last review. -I/O noted. Bowel Motility: BM x 1 today. Labs Reviewed: Hgb (9.1), Hct (29.9), Glu (151), BUN (23), Cr (1.7), K (3.1), Ca (8.2) Meds Noted: Diamox, Albuterol, Lipitor, Symbicort, Rocaltrol, Cefepime, KCl, Tricor, Fentanyl, Ferrous Sulfate, Novolog, Mag-Ox, Lopressor, Versed, Levophed, Protonix, Florastor, Vancomycin Additional Notes: Buttocks macerated. Will continue to monitor with same goal. Nutrition Monitoring and Evaluation: Follow up every Wednesday/Wednesday. Follow daily in ICU rounds.
[2020-12-03 12:09] LABS: Glucose Point of Care 157 (65-105)
--- NOTE | 2020-12-03 12:13 | WPDINTPN ---
Progress Note: A&P Assessment and Plan (1) Acute and chronic respiratory failure with hypercapnia: Code(s): J96.22 - Acute and chronic respiratory failure with hypercapnia Status: Acute Assessment and Plan: She does have history of chronic hypoxic and hypercarbic respiratory failure with her pCO2 in mid 60s at her baseline. She uses trilogy at nighttime at her baseline. Continue mechanical ventilation. ABG reviewed. She is being diuresed with Lasix and Diamox She requiring FiO2 of 40% and PEEP of 5. Low tidal volume ABG and chest x-ray Reviewed Sedated with fentanyl and Versed. Daily sedation vacation trial. Patient is going to be transferred to [facility] once bed is available (2) Shock: Code(s): R57.9 - Shock, unspecified Status: Acute Assessment and Plan: She became hypotensive after intubation which can be secondary to multiple etiologies including positive-pressure ventilation versus hypovolemia versus septic. Continue Levophed titration to maintain map. Currently on 3 mics Continue to monitor hemodynamics closely. (3) Fever: Code(s): R50.9 - Fever, unspecified Status: Acute Assessment and Plan: Patient had episode of fever last night but afebrile this morning On empiric vancomycin and cefepime A new set of blood cultures, urine and sputum cultures were sent Chest x-ray is essentially unchanged and no change in hemodynamics Her WBC is normal Continue antibiotics at this time and await culture results (4) Coag negative Staphylococcus bacteremia: Code(s): R78.81 - Bacteremia; B95.7 - Other staphylococcus as the cause of diseases classified elsewhere Status: Acute Assessment and Plan: Infectious disease service follow-up. She has finished vancomycin dose. Monitor her of steroid and continue to monitor fever curve and WBC count. (5) Acute on chronic diastolic CHF (congestive heart failure): Code(s): I50.33 - Acute on chronic diastolic (congestive) heart failure Status: Acute Assessment and Plan: Her clinical presentation and exam is suggestive of significant fluid overload. Chest x-ray showed pulmonary edema. I will continue diuresing her as she still having significant fluid overload based on clinical examination as well as chest x-ray showing significant pulmonary edema. She has developed significant alkalosis with some compensatory respiratory acidosis. Continue acetazolamide as needed Cardiology follow-up. Cardiology is aware of decrease in her ejection fraction to 35%. Strict intake output record and daily weight. Continue to monitor renal parameters and electrolytes. (6) Atrial fibrillation with controlled ventricular response: Code(s): I48.91 - Unspecified atrial fibrillation Status: Acute Assessment and Plan: Currently rate is well controlled. Her heart rate is in 40s when she is deeply asleep but mostly in 50s and 60s. Metoprolol has been put on hold because of hypotension. Continue apixaban for now. (7) Aspiration pneumonia: Qualifiers: Aspiration pneumonia type: unspecified Laterality: bilateral Lung location: lower lobe of lung Qualified Code(s): J69.0 - Pneumonitis due to inhalation of food and vomit Code(s): J69.0 - Pneumonitis due to inhalation of food and vomit Status: Acute Assessment and Plan: Completed a course of Unasyn on 11/26. I reviewed chest x-ray which is suggestive of fluid overload rather than another episode of aspiration pneumonitis/pneumonia. (8) COPD exacerbation: Code(s): J44.1 - Chronic obstructive pulmonary disease with (acute) exacerbation Status: Acute Assessment and Plan: She is not actively wheezing now. Hold of steroid. She has completed a course of steroid already. Continue bronchodilator. (9) RONAL (obstructive sleep apnea): Code(s): G47.33 - Obstructive slee
--- NOTE | 2020-12-03 12:40 | PC.NURSE ---
Report given to NU Villegas.
--- NOTE | 2020-12-03 13:28 | PM.PNCARD ---
Progress Note: A&P Assessment and Plan (1) CHF (congestive heart failure): Code(s): I50.9 - Heart failure, unspecified Status: Acute Assessment and Plan: Her ECHO done few days ago and read by Dr. Quintana suggests moderate LV systolic dysfunction (LVEF 35%). Previous ECHO showed normal LV systolic function and diastolic dysfunction. It was done in 06/18. Pt had COVID pneumonia in Jul 2020. 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 h/o CAD s/p LAD PCI in May 2020. Has atypical chest pain earlier this admission, central chest wall tenderness on palpation. Troponin negative. She may benefit from further cardiac evaluation on outpatient basis when recovers from current medical condition. This admission, she had hypercapnic respiratory failure requiring transfer to the ICU subsequently. She is intubated and sedated with FiO2 30%. She does have history of chronic hypoxic and hypercarbic respiratory failure. Agree with holding Diuresis now requiring more pressors support in the setting of likely septic shock. (2) Aspiration pneumonia: Qualifiers: Aspiration pneumonia type: unspecified Laterality: bilateral Lung location: lower lobe of lung Qualified Code(s): J69.0 - Pneumonitis due to inhalation of food and vomit Code(s): J69.0 - Pneumonitis due to inhalation of food and vomit Status: Acute Assessment and Plan: -Febrile last night. Abx per primary team . (3) Insulin dependent diabetes mellitus: Status: Acute (4) CKD (chronic kidney disease): Code(s): N18.9 - Chronic kidney disease, unspecified Status: Acute Assessment and Plan: Continue close monitoring of renal function and electrolytes. (5) Atrial fibrillation with controlled ventricular response: Code(s): I48.91 - Unspecified atrial fibrillation Status: Acute Assessment and Plan: Pt is in AFIB with moderate ventricular response. HR wel controlled off any blocking agents cont anticoagulation (6) CAD (coronary artery disease): Code(s): I25.10 - Atherosclerotic heart disease of [place] coronary artery without angina pectoris Status: Acute Assessment and Plan: Stable. PCI of LAD in May 2020 Subjective Date/time seen: 12/03/20 13:28 Remains sedated and intubated. Pressors requirements somewhat higher this afternoon. Up to 6 mcg of levophed. Low grade fevers noted. Daughter at bedside, questions answered. Review of Systems Review of Systems: ROS unobtainable: Yes unobtainable due to endotracheal tube Exam Const: General: ill appearing; No acute distress Other: Intubated and sedated. HENMT: Head: normal to inspection and atraumatic Ears: hearing grossly normal bilaterally Face and sinus: normal facial exam Eyes: General: appearance normal, both eyes and all related structures Pupils: Equal, round and reactive pupils present EOM: EOMs intact bilaterally Neck: Neck: normal visual inspection and no JVD Chest: Chest palpation & inspection: normal inspection of the chest Resp: Effort & Inspection: normal respiratory effort, no respiratory distress and prolonged expiratory phase Auscultation: rales Other: Diminished breath sounds bilaterally, without crackles but with mild diffuse wheezing. Cardio: Jugular venous distension: no JVD Rate: other Rhythm: other (irregularly irregular) Heart sounds: Murmur heart sound present systolic Other: GI: Inspection: normal to inspection Auscultation: normal bowel sounds Skin: General skin exam: normal color Neuro: Cranial nerves: Yes Equal, round and reactive pupils present Other: Unable to perform formal neurologic examination as patent intubated and sedated. She has mild generalized tremors. She does open left eye to attempts at stimulation. Extrem: General: edema (2+ bilateral generalized edema) Objective Data Vital Signs Vital Signs: Vital Signs - 24 hr 12/02/20 14:00 12/02/20 14:04 0
--- NOTE | 2020-12-03 14:47 | PM.IMPN ---
Progress Note: A&P Assessment and Plan (1) Aspiration pneumonia: Qualifiers: Aspiration pneumonia type: unspecified Laterality: bilateral Lung location: lower lobe of lung Qualified Code(s): J69.0 - Pneumonitis due to inhalation of food and vomit Code(s): J69.0 - Pneumonitis due to inhalation of food and vomit Status: Acute Assessment and Plan: Clinically patient is improving. Will repeat chest x-ray in the morning. Will continue with IV antibiotics 12/02/20 14:49 80-year-old female being treated with aspiration pneumonia being treated with Unasyn 3 g every 6 hours, states feeling little better chest x-ray on 11/22 showed left lower lobe infiltrate and consolidation, repeat chest x-ray showed improvement seen by pulmonology concerned patient is not wearing her BiPAP and will bring BiPAP from home by her family, will continue present managed appreciate input a well treatment offsider and further recommendation to follow. 11/26 patient family had brought trilogy from and patient more last night but states this morning this see does not feel well as the trilogy was not working very well, patient was seen pulmonology and review of the data from the trilogy recommended to continue new settings, repeat chest x-ray on 11/25 showed improvement in pneumonia patient is being treated with Unasyn for aspiration pneumonia will continue present and further recommendation to follow. 11/27 patient is clinically stable and does not have any new complaint, patient is off Unasyn and Solu-Medrol, will continue vancomycin until 11/30 discussed with the pulmonology suspect patient prognosis is poor prognosis high risk of recurrent aspiration pneumonia as patient is not able to swallow and her cough reflex a very poor recommending possible comfort care or hospice, did discuss with the patient will discuss with the patient's daughter and further recommendation to follow. 11/28 patient has no new complaint, patient clinically stable off Unasyn, plan is to continue vancomycin and patient will finish last dose on 11/30 and plan is to discharge the patient home with home health. 11/29 today patient appears more somnolent states not feeling well, patient's vitals are stable there is no fever and requiring 2 L of oxygen her baseline, will get the patient updraft, will continue to monitor and patient received her last dose of vancomycin tomorrow and plan is to discharge the patient home. 11/30 yesterday late night patient became somnolent ABG showed elevated CO2 99.4 and patient was intubated and transferred to ICU, repeat ABG showed much improved with CO2 57.5 on ventilator, suspect multifactorial as patient is morbidly obese and hypoventilating as well as volume overload patient is being diuresed and on vent will continue to monitor, initial plan was to discharge the patient today as she will finish her vancomycin however will continue to monitor in ICU and seen by combination welder and satnam. 12/01 on 11/30 patient went into hypercapnic respiratory failure and patient was intubated and placed on vent, was clinically stable however late after patient developed what appeared to be seizure-like activity patient was given Ativan with slight improvement, CT scan of the head was negative for any acute injury, combination welder was contacted patient was started on IV Keppra 750 b.i.d., tube feeding was started is patient was also hypoglycemic, today patient was seen neurology and discussed with her daughter apparently patient has history of tremors for over a year now and neurologist suspect most likely patient had a tremors, EEGs pending and further recommendation to follow, patient be seen by intensive and satnam, patient completed her course of vancomycin for coagulase-negative Staph aureus on 11/30. 12/02 plan was to transfer the patient to [facility] at family request and was waiting for the bed however patient still waiting, no seizure activity, will continue to monitor
[2020-12-03 17:43] LABS: Glucose Point of Care 171 (65-105)
[2020-12-03] MEDS: TIZANIDINE HCL 4 MG TABLET PO (20:26)
[2020-12-03] MEDS: ALBUTEROL SULFATE NEB 2.5 MG/0.5 ML INH INHALATION (22:05)
[2020-12-04] VITALS (33 sets, daily range): BP systolic 71–138; BP diastolic 39–96; PULSE 39–108; RESP 12–32; TEMP 36.9–37.8; O2SAT 95–100
[2020-12-04 04:57] LABS: Alveolar/Arterial O2 Gradient 75.6 mmHg; Base Excess ABG 7.8 mEq/l (+/-2.0); Carboxyhemoglobin 0.1 % THb (0-2.0); Fractional Inspired Oxygen 30 %; HCO3 ABG 34.2 mEq/l (22.0-26.0); Methemoglobin ABG 0.2 %THb (0-1.5); Modified Allen's Test Unable to perform; Oxygen Content ABG 14.5 %vol (16.0-22.0); Oxygen Saturation ABG 93.7 % (95.0-100.0); Oxyhemoglobin 92.4 % THb (90.0-100.0); PCO2 ABG 57.7 mmHg (35.0-45.0); PO2 ABG 70.5 mmHg (80.0-100.0); PO2 FiO2 Ratio Arterial Blood 2.35 %; Reduced Hemoglobin 7.3 %THb (0-5.0); Site Drawn RIGHT RADIAL; Total Hemoglobin 11.1 g/dL (12.0-18.0); pH ABG 7.391 (7.350-7.450)
[2020-12-04 04:58] LABS: Arterial Blood Gas PEEP 5 cmH2O; Arterial Blood Gas Tidal Volume 380 ml; Arterial Blood Gas Vent Mode CMV; Arterial Blood Gas Ventilator rate 12 /MIN; Device VENTILATOR
[2020-12-04 05:13] LABS: Hemoglobin 8.7 g/dL (12.0-15.0); Mean Corpuscular Hemoglobin 28.9 pg (26-34); Mean Corpuscular Volume 96.3 fl (80-100); Platelet Count Result 153 k/mm3 (150-375); Red Blood Count 3.01 M/mm3 (4.2-5.4); Red Cell Distribution Width 17.3 % (11.5-14.5); White Blood Count 4.4 K/mm3 (4.5-10.0)
[2020-12-04 05:34] LABS: Anion Gap 0 mmol/L (8-16); Blood Urea Nitrogen 24 mg/dL (7-17); Calcium 7.6 mg/dL (8.4-10.2); Carbon Dioxide 37 mmol/L (22-30); Chloride 101 mmol/L (98-107); Estimated CRCL calculation 33 ml/min; Estimated Glomerular Filt Rate 31; Glucose 173 mg/dL (65-105); Phosphorus 3.5 mg/dL (2.5-4.5); Potassium 3.7 mmol/L (3.4-5.0); Sodium 138 mmol/L (137-145)
[2020-12-04] MEDS: CENTRAL LINE FLUSH 10 ML IV PUSH ×3 (05:43→21:08)
--- NOTE | 2020-12-04 08:25 | WPDNEUROLOGY ---
Neurology EEG Report General Information Date of Study: 12/02/20 TEST eeg DIAGNOSIS New onset seizure activity CONDITION OF RECORDING coma toes EEG NUMBER 21-100 CLINICAL HISTORY no particular history was available patient has new onset of seizure activity and at the time of tracing patient was unresponsive EEG DESCRIPTION old record consists of low to medium voltage 5 to 7 hertz per 2nd theta admixed with medium to high voltage 3 to 4 hertz per 2nd delta activity. Hyperventilation not done photic stimulation not done. Non paroxysmal. Nonfocal. Nonlateralizing. IMPRESSION Abnormal record due to the presence of bihemispheric theta and delta activity. This abnormality is suggestive of underlying organic or metabolic encephalopathy or postictal status. Clinical correlation recommended. There is no evidence of paroxysmal discharge on this tracing
[2020-12-04] MEDS: levETIRAcetam 500MG/NACL 100ML 500 MG/100 ML BAG 400 MG IVPB ×2 (08:28→21:05)
[2020-12-04] MEDS: CEFEPIME 0.5 GM in DEXTROSE 5% IN WATER 50 ML IVPB ×2 (08:29→21:05)
[2020-12-04] MEDS: PANTOPRAZOLE SODIUM IV 40 MG VIAL IV PUSH (08:29)
[2020-12-04] MEDS: WATER, STERILE FOR INJECTION 10 ML VIAL XX (08:29)
[2020-12-04] MEDS: APIXABAN 5 MG TABLET PO ×2 (08:29→21:07)
[2020-12-04] MEDS: ATORVASTATIN 40 MG TABLET 80 MG PO (08:29)
[2020-12-04] MEDS: calcitrioL 0.25 MCG CAPSULE PO (08:29)
[2020-12-04] MEDS: MAGNESIUM OXIDE 400 MG TABLET PO (08:30)
[2020-12-04] MEDS: CLOPIDOGREL BISULFATE 75 MG TABLET PO (08:30)
[2020-12-04] MEDS: SACCHAROMYCES BOULARDII 250 MG CAPSULE PO ×2 (08:30→17:19)
[2020-12-04] MEDS: FERROUS SULFATE 324 MG TABLET PO ×2 (08:30→17:19)
[2020-12-04] MEDS: COLCHICINE 0.6 MG TABLET PO ×2 (08:30→17:19)
[2020-12-04] MEDS: FENOFIBRATE NANOCRYSTALLIZED 145 MG TABLET PO (08:30)
[2020-12-04] MEDS: LIDOCAINE 5% PATCH 1 PATCH TRANSDERM (08:31)
[2020-12-04] MEDS: TOLNAFTATE 1% POWDER 45 GM BTL 1 APPLIC TOPICAL ×2 (08:31→21:08)
[2020-12-04] MEDS: EUCERIN CREAM 120 GM JAR 1 APPLIC TOPICAL (08:31)
[2020-12-04] MEDS: acetaZOLAMIDE SODIUM FOR INJ 500 MG VIAL IV PUSH (08:32)
--- NOTE | 2020-12-04 08:35 | PC.NURSE ---
Sedation paused for SBT per Dr. Tobias's order
--- NOTE | 2020-12-04 09:01 | PM.PNCARD ---
Progress Note: A&P Assessment and Plan (1) CHF (congestive heart failure): Code(s): I50.9 - Heart failure, unspecified Status: Acute Assessment and Plan: Moderate LV systolic dysfunction (LVEF 35%), new compared to Oct Volume status difficult to assess due to body habitus. Agree with holding loop diuretics iin the setting of low BP (possibly septic shock). Creatinine remains stable close to baseline 1.6. She is on Fio2 of 30 on the vent. May resume orally with home dose of Torsedmide 40 mg daily once assure BP stable (was just weanedd off Levophed this am) h/o CAD s/p LAD PCI in May 2020. Has atypical chest pain earlier this admission, central chest wall tenderness on palpation. Troponin negative. She may benefit from further cardiac evaluation on outpatient basis when recovers from current medical condition. (2) Atrial fibrillation with controlled ventricular response: Code(s): I48.91 - Unspecified atrial fibrillation Status: Acute Assessment and Plan: Pt is in AFIB with moderate ventricular response. HR wel controlled off any blocking agents cont anticoagulation (3) Insulin dependent diabetes mellitus: Status: Acute (4) CKD (chronic kidney disease): Code(s): N18.9 - Chronic kidney disease, unspecified Status: Acute Assessment and Plan: Continue close monitoring of renal function and electrolytes. (5) CAD (coronary artery disease): Code(s): I25.10 - Atherosclerotic heart disease of [place] coronary artery without angina pectoris Status: Acute Assessment and Plan: Stable. PCI of LAD in May 2020 Subjective Date/time seen: 12/04/20 09:01 No overnight events.Remains sedated and intubated. She was just weaned off pressors this am. tele shows A fib rate controlled to slow ventricular response Review of Systems Review of Systems: ROS unobtainable: Yes unobtainable due to endotracheal tube Exam Const: General: ill appearing; No acute distress Other: Intubated and sedated. HENMT: Head: normal to inspection and atraumatic Ears: hearing grossly normal bilaterally Face and sinus: normal facial exam Eyes: General: appearance normal, both eyes and all related structures Pupils: Equal, round and reactive pupils present EOM: EOMs intact bilaterally Neck: Neck: normal visual inspection and no JVD Chest: Chest palpation & inspection: normal inspection of the chest Resp: Effort & Inspection: normal respiratory effort, no respiratory distress and prolonged expiratory phase Auscultation: rales Other: Diminished breath sounds bilaterally, without crackles but with mild diffuse wheezing. Cardio: Jugular venous distension: no JVD Rate: other Rhythm: other (irregularly irregular) Heart sounds: Murmur heart sound present systolic Other: GI: Inspection: normal to inspection Auscultation: normal bowel sounds Skin: General skin exam: normal color Neuro: Cranial nerves: Yes Equal, round and reactive pupils present Other: Unable to perform formal neurologic examination as patent intubated and sedated. She has mild generalized tremors. She does open left eye to attempts at stimulation. Extrem: General: edema (2+ bilateral generalized edema) Objective Data Vital Signs Vital Signs: Vital Signs - 24 hr 12/03/20 10:00 12/03/20 11:30 12/03/20 11:59 Temperature Pulse Rate 63 56 L 69 Respiratory Rate 16 Blood Pressure 149/123 H 96/36 L Pulse Oximetry 95 99 12/03/20 12:00 12/03/20 12:15 12/03/20 12:45 Temperature 37.3 C Pulse Rate 52 L 116 H 56 L Respiratory Rate 16 Blood Pressure 92/44 L 88/45 L 95/38 L Pulse Oximetry 99 12/03/20 13:15 12/03/20 14:00 12/03/20 14:15 Temperature Pulse Rate 52 L 55 L Respiratory Rate 14 Blood Pressure 154/122 H 104/47 L Pulse Oximetry 97 97 12/03/20 15:15 12/03/20 15:20 12/03/20 16:00 Temperature 36.3 C L Pulse Rate 53 L 50 L Respiratory Rate 1
--- NOTE | 2020-12-04 09:47 | WPDINTPN ---
Progress Note: A&P Assessment and Plan (1) Acute and chronic respiratory failure with hypercapnia: Code(s): J96.22 - Acute and chronic respiratory failure with hypercapnia Status: Acute Assessment and Plan: She does have history of chronic hypoxic and hypercarbic respiratory failure with her pCO2 in mid 60s at her baseline. She uses trilogy at nighttime at her baseline. Continue mechanical ventilation. ABG reviewed. She is being diuresed with Diamox hold Lasix as patient went back on Levophed She requiring FiO2 of 40% and PEEP of 5. Low tidal volume ABG and chest x-ray Reviewed Sedated with fentanyl and Versed. Daily sedation vacation trial. Patient is going to be transferred to [facility] once bed is available Will try pressure support weaning trial today (2) Shock: Code(s): R57.9 - Shock, unspecified Status: Acute Assessment and Plan: She became hypotensive after intubation which can be secondary to multiple etiologies including positive-pressure ventilation versus hypovolemia versus septic. Continue Levophed titration to maintain map. Currently on 1 mics Continue to monitor hemodynamics closely. (3) Fever: Code(s): R50.9 - Fever, unspecified Status: Acute Assessment and Plan: Patient had episode of fever last night but afebrile this morning On empiric vancomycin and cefepime A new set of blood cultures, urine and sputum cultures were sent Chest x-ray is essentially unchanged and no change in hemodynamics Her WBC is normal Sputum cultures growing out E coli Continue antibiotics at this time and await culture results (4) Coag negative Staphylococcus bacteremia: Code(s): R78.81 - Bacteremia; B95.7 - Other staphylococcus as the cause of diseases classified elsewhere Status: Acute Assessment and Plan: Infectious disease service follow-up. She has finished vancomycin dose. Monitor her of steroid and continue to monitor fever curve and WBC count. (5) Acute on chronic diastolic CHF (congestive heart failure): Code(s): I50.33 - Acute on chronic diastolic (congestive) heart failure Status: Acute Assessment and Plan: Her clinical presentation and exam is suggestive of significant fluid overload. Chest x-ray showed pulmonary edema. I will continue diuresing her as she still having significant fluid overload based on clinical examination as well as chest x-ray showing significant pulmonary edema. She has developed significant alkalosis with some compensatory respiratory acidosis. Continue acetazolamide as needed Cardiology follow-up. Cardiology is aware of decrease in her ejection fraction to 35%. Strict intake output record and daily weight. Continue to monitor renal parameters and electrolytes. (6) Atrial fibrillation with controlled ventricular response: Code(s): I48.91 - Unspecified atrial fibrillation Status: Acute Assessment and Plan: Currently rate is well controlled. Her heart rate is in 40s when she is deeply asleep but mostly in 50s and 60s. Metoprolol has been put on hold because of hypotension. Continue apixaban for now. (7) Aspiration pneumonia: Qualifiers: Aspiration pneumonia type: unspecified Laterality: bilateral Lung location: lower lobe of lung Qualified Code(s): J69.0 - Pneumonitis due to inhalation of food and vomit Code(s): J69.0 - Pneumonitis due to inhalation of food and vomit Status: Acute Assessment and Plan: Completed a course of Unasyn on 11/26. I reviewed chest x-ray which is suggestive of fluid overload rather than another episode of aspiration pneumonitis/pneumonia. (8) COPD exacerbation: Code(s): J44.1 - Chronic obstructive pulmonary disease with (acute) exacerbation Status: Acute Assessment and Plan: She is not actively wheezing now. Hold of steroid. She has completed a course of steroi
--- NOTE | 2020-12-04 10:12 | WPDNEUROPN ---
Progress Note: A&P Additional Plan patient definitely lightening up responded to the verbal command also spontaneously moving her feet, as per the information available from the family and the nurse she is in the process of getting transferred to [facility] Review of Systems Review of Systems: All systems reviewed & are unremarkable except as noted in HPI and below Exam Const: Nutritional Appearance: obese HENMT: Head: normocephalic Ears: hearing grossly normal bilaterally ( responded to verbal commands today by opening the eyes) General nose exam: Normal external nose present Face and sinus: normal facial exam Eyes: Alignment and Position: position normal Periorbital: periorbital findings normal Eyelids: eyelids normal Conjunctivae: conjunctivae normal Pupils: Equal, round and reactive pupils present Resp: Auscultation: rhonchi Cardio: Rhythm: regular rhythm Objective Data Vital Signs Vital Signs: Vital Signs - 24 hr 12/03/20 11:30 12/03/20 11:59 12/03/20 12:00 Temperature 37.3 C Pulse Rate 56 L 69 52 L Respiratory Rate 16 Blood Pressure 96/36 L 92/44 L Pulse Oximetry 99 99 12/03/20 12:15 12/03/20 12:45 12/03/20 13:15 Temperature Pulse Rate 116 H 56 L Respiratory Rate Blood Pressure 88/45 L 95/38 L 154/122 H Pulse Oximetry 12/03/20 14:00 12/03/20 14:15 12/03/20 15:15 Temperature Pulse Rate 52 L 55 L 53 L Respiratory Rate 14 17 Blood Pressure 104/47 L Pulse Oximetry 97 97 12/03/20 15:20 12/03/20 16:00 12/03/20 16:01 Temperature 36.3 C L Pulse Rate 50 L 50 L Respiratory Rate 17 17 Blood Pressure 131/46 L 123/51 L 123/51 L Pulse Oximetry 98 12/03/20 16:02 12/03/20 16:20 12/03/20 16:47 Temperature Pulse Rate 50 L Respiratory Rate 17 Blood Pressure 123/60 109/93 H Pulse Oximetry 12/03/20 17:35 12/03/20 17:36 12/03/20 18:00 Temperature Pulse Rate 120 H 79 Respiratory Rate 21 H 17 Blood Pressure 114/74 131/106 H Pulse Oximetry 96 97 12/03/20 18:20 12/03/20 19:45 12/03/20 20:00 Temperature 36.9 C Pulse Rate 50 L 73 Respiratory Rate 18 Blood Pressure 98/79 L 104/63 Pulse Oximetry 99 98 12/03/20 22:00 12/03/20 22:05 12/03/20 22:16 Temperature Pulse Rate 43 L 52 L 57 L Respiratory Rate 14 13 13 Blood Pressure 100/43 L Pulse Oximetry 99 12/03/20 23:18 12/04/20 00:00 12/04/20 02:00 Temperature 37.6 C H Pulse Rate 51 L 49 L 49 L Respiratory Rate 18 18 Blood Pressure 94/74 L 98/43 L Pulse Oximetry 99 98 95 12/04/20 02:02 12/04/20 04:00 12/04/20 05:04 Temperature 37.7 C H Pulse Rate 46 L 57 L 55 L Respiratory Rate 18 Blood Pressure 103/52 L Pulse Oximetry 100 98 99 12/04/20 06:00 12/04/20 08:00 12/04/20 08:11 Temperature 37.8 C H Pulse Rate 52 L 78 62 Respiratory Rate 18 12 Blood Pressure 89/44 L 95/58 L Pulse Oximetry 95 98 97 12/04/20 08:36 12/04/20 08:37 12/04/20 08:50 Temperature Pulse Rate 68 68 Respiratory Rate 19 19 Blood Pressure 100/60 Pulse Oximetry Intake/Output Intake/Output: Intake & Output 12/01/20 12/02/20 12/03/20 12/04/20 23:59 23:59 23:59 23:59 Intake Total 2377.3 2171.5 1897.0 620 Output Total 3150 3975 900 250 Balance -772.7 -1803.5 997.0 370 Meds/Results Medications: Active Medications Generic Name Dose Route Start Last Admin Trade Name Freq PRN Reason Stop Dose Admin Acetaminophen 650 mg 11/17/20 10:12 12/02/20 21:04 Acetaminophen 325 Mg Tablet PO 650 mg Q4H PRN Administration Pain or Fever Acetazolamide Sodium 500 mg 12/01/20 09:00 12/04/20 08:32 Acetazolamide Sodium For Inj 500 Mg Vial IV PUSH 500 mg DAILY BEL Administration Albuterol 2.5 mg 11/19/20 10:32 12/03/20 22:05 Albuterol Sulfate Neb 2.5 Mg/0.5 Ml Inh INHALATION 2.5 mg Q6HRT PRN Administration Dyspnea Amlodipine Besylate 5 mg 11/17/20 09:00 11/29/20 09:25 Amlodipine Besylate 5 Mg Tablet PO 5 mg
--- NOTE | 2020-12-04 11:19 | PCDIET ---
ICU Rounding Note: Patient tolerating Glucerna 1.2 at 50mL/hr goal rate with 30mL water flush every 4 hours. Last recorded weight is 113.4kg which is decreased from last review. Bowel Motility: Several bowel movements overnight, per RN. Labs Reviewed: Hgb (8.7), Hct (29.0), Glu (173), BUN (24), Cr (1.6), Ca (7.6) Meds Noted: Diamox, Lipitor, Tricor, Protonix, Plavis, Mag-Ox, Albuterol, Calcitriol, Florastor, Cefepime, Ferrous Sulfate, Vancomycin Additional Notes: Buttocks macerated. Recommend checking albumin level for calcium correction. Following daily in ICU rounds. Assessing/reassessing every Wednesday/Wednesday.
[2020-12-04] MEDS: INSULIN ASPART (*BKC) 100 UNITS/ML SUB-Q ×2 (11:44→23:48)
[2020-12-04 11:47] LABS: Glucose Point of Care 218 (65-105)
[2020-12-04 17:26] LABS: Glucose Point of Care 179 (65-105)
--- NOTE | 2020-12-04 19:00 | PM.IMPN ---
Progress Note: A&P Assessment and Plan (1) Aspiration pneumonia: Qualifiers: Aspiration pneumonia type: unspecified Laterality: bilateral Lung location: lower lobe of lung Qualified Code(s): J69.0 - Pneumonitis due to inhalation of food and vomit Code(s): J69.0 - Pneumonitis due to inhalation of food and vomit Status: Acute (2) Respiratory failure with hypoxia and hypercapnia: Code(s): J96.91 - Respiratory failure, unspecified with hypoxia; J96.92 - Respiratory failure, unspecified with hypercapnia Status: Acute (3) Shock: Code(s): R57.9 - Shock, unspecified Status: Acute (4) RONAL (obstructive sleep apnea): Code(s): G47.33 - Obstructive sleep apnea (adult) (pediatric) Status: Acute (5) Acute on chronic diastolic CHF (congestive heart failure): Code(s): I50.33 - Acute on chronic diastolic (congestive) heart failure Status: Acute (6) CAD (coronary artery disease): Code(s): I25.10 - Atherosclerotic heart disease of [place] coronary artery without angina pectoris Status: Acute (7) Fever: Code(s): R50.9 - Fever, unspecified Status: Acute (8) Insulin dependent diabetes mellitus: Status: Acute (9) Seizure: Code(s): R56.9 - Unspecified convulsions Status: Acute (10) Atrial fibrillation with controlled ventricular response: Code(s): I48.91 - Unspecified atrial fibrillation Status: Acute (11) Acute renal insufficiency: Code(s): N28.9 - Disorder of kidney and ureter, unspecified Status: Acute (12) COPD exacerbation: Code(s): J44.1 - Chronic obstructive pulmonary disease with (acute) exacerbation Status: Acute (13) Chronic respiratory failure with hypoxia: Code(s): J96.11 - Chronic respiratory failure with hypoxia Status: Acute Additional Plan Patient remains intubated and sedated in the ICU. She is pending transfer to [place] for further care as all of her established physicians are within that healthcare system. Patient continues to undergo diuresis respiratory staff support with ventilation and expert consultation with Cardiology as well as pulmonary critical care. She remains critically ill but stable at this time Time Spent With Patient Time with patient: 25 - 35 minutes Subjective Date/time seen: 12/04/20 19:00 intubated and sedated Exam Narrative: Exam Narrative: General: Intubated and sedated HEENT: Endotracheal tube present, moist mucous membranes Heart: S1-S2 regular rate and rhythm Lungs: Anterior chest wall without crackles rhonchi Abdomen: Soft nontender nondistended Neuro: Patient is sedated not following commands at the time of my examination Extremities: No cyanosis no edema no clubbing Objective Data Vital Signs Vital Signs: Vital Signs - 24 hr 12/03/20 19:45 12/03/20 20:00 12/03/20 22:00 Temperature 98.5 F Pulse Rate 50 L 73 43 L Respiratory Rate 18 14 Blood Pressure 104/63 100/43 L Pulse Oximetry 99 98 99 12/03/20 22:05 12/03/20 22:16 12/03/20 23:18 Temperature Pulse Rate 52 L 57 L 51 L Respiratory Rate 13 13 Blood Pressure Pulse Oximetry 99 12/04/20 00:00 12/04/20 02:00 12/04/20 02:02 Temperature 99.7 F H Pulse Rate 49 L 49 L 46 L Respiratory Rate 18 18 Blood Pressure 94/74 L 98/43 L Pulse Oximetry 98 95 100 12/04/20 04:00 12/04/20 05:04 12/04/20 06:00 Temperature 99.8 F H Pulse Rate 57 L 55 L 52 L Respiratory Rate 18 18 Blood Pressure 103/52 L 89/44 L Pulse Oximetry 98 99 95 12/04/20 08:00 12/04/20 08:11 12/04/20 08:36 Temperature 100.0 F H Pulse Rate 78 62 68 Respiratory Rate 12 19 Blood Pressure 95/58 L Pulse Oximetry 98 97 12/04/20 08:37 12/04/20 08:50 12/04/20 09:51 Temperature Pulse Rate 68 104 H Respiratory Rate 19 Blood Pressure 100/60 Pulse Oximetry 98 12/04/20 10:00 12/04/20 10:07 12/04/20 12:00 Temperature 99.8 F H Pulse Ra
[2020-12-04] MEDS: ACETAMINOPHEN 325 MG TABLET 650 MG PO (21:06)
[2020-12-04] MEDS: TIZANIDINE HCL 4 MG TABLET PO (21:07)
[2020-12-04] MEDS: NOREPINEPHRINE 8 MG/D5W 250 ML 8 MG/250 ML BAG 9.38 MG IV CONT (23:32)
[2020-12-04 23:37] LABS: Glucose Point of Care 216 (65-105)
[2020-12-05] VITALS (29 sets, daily range): BP systolic 100–123; BP diastolic 40–78; PULSE 39–94; RESP 12–24; TEMP 36.8–37.4; O2SAT 96–100
[2020-12-05] MEDS: TIZANIDINE HCL 4 MG TABLET PO (02:22)
[2020-12-05 05:15] LABS: Alveolar/Arterial O2 Gradient 143.7 mmHg; Base Excess ABG 5.9 mEq/l (+/-2.0); Carboxyhemoglobin 0.3 % THb (0-2.0); HCO3 ABG 30.2 mEq/l (22.0-26.0); Methemoglobin ABG 0.2 %THb (0-1.5); Oxygen Content ABG 15.2 %vol (16.0-22.0); Oxygen Saturation ABG 97.4 % (95.0-100.0); Oxyhemoglobin 95.9 % THb (90.0-100.0); PCO2 ABG 42.7 mmHg (35.0-45.0); PO2 ABG 92.4 mmHg (80.0-100.0); PO2 FiO2 Ratio Arterial Blood 2.31 %; Reduced Hemoglobin 3.6 %THb (0-5.0); Total Hemoglobin 11.2 g/dL (12.0-18.0); pH ABG 7.467 (7.350-7.450)
[2020-12-05 05:16] LABS: Device VENTILATOR; Modified Allen's Test Unable to perform; Site Drawn LEFT RADIAL
[2020-12-05 05:17] LABS: Arterial Blood Gas PEEP 5 cmH2O; Arterial Blood Gas Tidal Volume 380 ml; Arterial Blood Gas Vent Mode CMV; Arterial Blood Gas Ventilator rate 12 /MIN; Fractional Inspired Oxygen 30 %
[2020-12-05 05:35] LABS: Glucose Point of Care 214 (65-105)
[2020-12-05] MEDS: CENTRAL LINE FLUSH 10 ML IV PUSH ×3 (05:35→21:30)
[2020-12-05] MEDS: INSULIN ASPART (*BKC) 100 UNITS/ML SUB-Q ×2 (05:35→11:42)
[2020-12-05 05:49] LABS: Estimated CRCL calculation 33 ml/min; Estimated Glomerular Filt Rate 31; Magnesium 2.1 mg/dL (1.6-2.3); Phosphorus 2.7 mg/dL (2.5-4.5)
[2020-12-05] MEDS: LIDOCAINE 5% PATCH 1 PATCH TRANSDERM (08:31)
[2020-12-05] MEDS: acetaZOLAMIDE SODIUM FOR INJ 500 MG VIAL IV PUSH (08:32)
[2020-12-05] MEDS: MAGNESIUM OXIDE 400 MG TABLET PO (08:32)
[2020-12-05] MEDS: COLCHICINE 0.6 MG TABLET PO ×2 (08:32→16:44)
[2020-12-05] MEDS: PANTOPRAZOLE SODIUM IV 40 MG VIAL IV PUSH (08:32)
[2020-12-05] MEDS: ATORVASTATIN 40 MG TABLET 80 MG PO (08:33)
[2020-12-05] MEDS: levETIRAcetam 500MG/NACL 100ML 500 MG/100 ML BAG 400 MG IVPB ×2 (08:33→20:02)
[2020-12-05] MEDS: FERROUS SULFATE 324 MG TABLET PO ×2 (08:33→16:44)
[2020-12-05] MEDS: CEFEPIME 0.5 GM in DEXTROSE 5% IN WATER 50 ML IVPB ×2 (08:33→20:02)
[2020-12-05] MEDS: FENOFIBRATE NANOCRYSTALLIZED 145 MG TABLET PO (08:34)
[2020-12-05] MEDS: APIXABAN 5 MG TABLET PO ×2 (08:34→20:01)
[2020-12-05] MEDS: SACCHAROMYCES BOULARDII 250 MG CAPSULE PO ×2 (08:34→16:44)
[2020-12-05] MEDS: CLOPIDOGREL BISULFATE 75 MG TABLET PO (08:34)
[2020-12-05] MEDS: EUCERIN CREAM 120 GM JAR 1 APPLIC TOPICAL (08:34)
[2020-12-05] MEDS: TOLNAFTATE 1% POWDER 45 GM BTL 1 APPLIC TOPICAL ×2 (08:35→20:02)
--- NOTE | 2020-12-05 10:20 | PM.PNCARD ---
Progress Note: A&P Assessment and Plan (1) CHF (congestive heart failure): Code(s): I50.9 - Heart failure, unspecified Status: Acute Assessment and Plan: Moderate LV systolic dysfunction (LVEF 35%), new compared to Oct Volume status difficult to assess due to body habitus. Agree with diuresis with close monitoring of Bp and kidney function Tele reviewed. A fib with slow ventricular response HR ~ 40s-50s. She is off any blocking agents. h/o CAD s/p LAD PCI in May 2020. Has atypical chest pain earlier this admission, central chest wall tenderness on palpation. Troponin negative. She may benefit from further cardiac evaluation on outpatient basis when recovers from current medical condition. (2) Atrial fibrillation with controlled ventricular response: Code(s): I48.91 - Unspecified atrial fibrillation Status: Acute Assessment and Plan: Pt is in AFIB with slow ventricular response. Keep off Metoprolol cont anticoagulation (3) Insulin dependent diabetes mellitus: Status: Acute (4) CKD (chronic kidney disease): Code(s): N18.9 - Chronic kidney disease, unspecified Status: Acute Assessment and Plan: Continue close monitoring of renal function and electrolytes. (5) CAD (coronary artery disease): Code(s): I25.10 - Atherosclerotic heart disease of [place] coronary artery without angina pectoris Status: Acute Assessment and Plan: Stable. PCI of LAD in May 2020 Subjective Date/time seen: 12/05/20 10:20 Still sedated on the Vent. Back on low dose Levophed. Review of Systems Review of Systems: ROS unobtainable: Yes unobtainable due to endotracheal tube Exam Const: General: ill appearing; No acute distress Other: Intubated and sedated. HENMT: Head: normal to inspection and atraumatic Ears: hearing grossly normal bilaterally Face and sinus: normal facial exam Eyes: General: appearance normal, both eyes and all related structures Pupils: Equal, round and reactive pupils present EOM: EOMs intact bilaterally Neck: Neck: normal visual inspection and no JVD Chest: Chest palpation & inspection: normal inspection of the chest Resp: Effort & Inspection: normal respiratory effort, no respiratory distress and prolonged expiratory phase Auscultation: rales Other: Diminished breath sounds bilaterally, without crackles but with mild diffuse wheezing. Cardio: Jugular venous distension: no JVD Rate: other Rhythm: other (irregularly irregular) Heart sounds: Murmur heart sound present systolic Other: GI: Inspection: normal to inspection Auscultation: normal bowel sounds Skin: General skin exam: normal color Neuro: Cranial nerves: Yes Equal, round and reactive pupils present Other: Unable to perform formal neurologic examination as patent intubated and sedated. She has mild generalized tremors. She does open left eye to attempts at stimulation. Extrem: General: edema (2+ bilateral generalized edema) Objective Data Vital Signs Vital Signs: Vital Signs - 24 hr 12/04/20 12:00 12/04/20 12:23 12/04/20 12:31 Temperature 37.7 C H Pulse Rate 106 H Respiratory Rate 23 H Blood Pressure 87/70 L 91/68 L 108/54 L Pulse Oximetry 98 12/04/20 12:46 12/04/20 13:01 12/04/20 14:00 Temperature Pulse Rate 84 Respiratory Rate 25 H Blood Pressure 111/96 H 115/63 98/71 L Pulse Oximetry 98 12/04/20 14:38 12/04/20 16:00 12/04/20 16:38 Temperature 37.3 C Pulse Rate 108 H 93 95 Respiratory Rate 23 H 27 H Blood Pressure 118/60 106/68 Pulse Oximetry 100 97 12/04/20 16:40 12/04/20 16:52 12/04/20 18:00 Temperature Pulse Rate 95 94 93 Respiratory Rate 27 H 12 Blood Pressure 129/82 Pulse Oximetry 96 98 12/04/20 20:00 12/04/20 20:03 12/04/20 21:05 Temperature 36.9 C Pulse Rate 83 81 81 Respiratory Rate 15 Blood Pressure 122/48 L Pulse Oximetry 98 100 99 12/04/20 22:00 12/04/20
[2020-12-05] MEDS: FUROSEMIDE INJ 40 MG/4 ML VIAL IV PUSH (10:23)
--- NOTE | 2020-12-05 10:37 | WPDINTPN ---
Progress Note: A&P Assessment and Plan (1) Acute and chronic respiratory failure with hypercapnia: Code(s): J96.22 - Acute and chronic respiratory failure with hypercapnia Status: Acute Assessment and Plan: She does have history of chronic hypoxic and hypercarbic respiratory failure with her pCO2 in mid 60s at her baseline. She uses trilogy at nighttime at her baseline. Continue mechanical ventilation. ABG reviewed. Lasix 40 mg IV x1 She requiring FiO2 of 40% and PEEP of 5. Low tidal volume She did pressure support ventilation 15/5 yesterday. Will retry again today. With any lower pressure support her tidal volumes are low ABG and chest x-ray Reviewed Off sedation at this time Patient is going to be transferred to [facility] once bed is available (2) Shock: Code(s): R57.9 - Shock, unspecified Status: Acute Assessment and Plan: She became hypotensive after intubation which can be secondary to multiple etiologies including positive-pressure ventilation versus hypovolemia versus septic. Continue Levophed titration to maintain map. Currently on Prieb mics Continue to monitor hemodynamics closely. (3) Fever: Code(s): R50.9 - Fever, unspecified Status: Acute Assessment and Plan: Patient had episode of fever and repeat cultures were sent Sputum is growing out E coli On empiric vancomycin and cefepime. I will discontinue vancomycin Chest x-ray is essentially unchanged and no change in hemodynamics Her WBC is normal (4) Acute on chronic diastolic CHF (congestive heart failure): Code(s): I50.33 - Acute on chronic diastolic (congestive) heart failure Status: Acute Assessment and Plan: Her clinical presentation and exam is suggestive of significant fluid overload. Chest x-ray showed pulmonary edema. She was diuresed with Lasix if she develops alkalosis and was switched to Diamox Continue diuresis Cardiology follow-up. Cardiology is aware of decrease in her ejection fraction to 35%. Strict intake output record and daily weight. Continue to monitor renal parameters and electrolytes. (5) Atrial fibrillation with controlled ventricular response: Code(s): I48.91 - Unspecified atrial fibrillation Status: Acute Assessment and Plan: Currently patient is in slow AFib. Not on any AV blockers Discussed with cardiology. No plan for pacemaker at this time although she may need it in the future Continue apixaban for now. (6) Aspiration pneumonia: Qualifiers: Aspiration pneumonia type: unspecified Laterality: bilateral Lung location: lower lobe of lung Qualified Code(s): J69.0 - Pneumonitis due to inhalation of food and vomit Code(s): J69.0 - Pneumonitis due to inhalation of food and vomit Status: Acute Assessment and Plan: Completed a course of Unasyn on 11/26. I reviewed chest x-ray which is suggestive of fluid overload rather than another episode of aspiration pneumonitis/pneumonia. (7) COPD exacerbation: Code(s): J44.1 - Chronic obstructive pulmonary disease with (acute) exacerbation Status: Acute Assessment and Plan: She is not actively wheezing now. Hold of steroid. She has completed a course of steroid already. Continue bronchodilator. (8) RONAL (obstructive sleep apnea): Code(s): G47.33 - Obstructive sleep apnea (adult) (pediatric) Status: Acute Assessment and Plan: Currently intubated. She will resume her trilogy at nighttime once extubated. (9) Morbid obesity with BMI of 40.0-44.9, adult: Code(s): E66.01 - Morbid (severe) obesity due to excess calories; Z68.41 - Body mass index [BMI]40.0-44.9, adult Status: Acute Assessment and Plan: Continue to monitor (10) Chronic kidney disease, stage 3: Code(s): N18.30 - Chronic kidney disease, stage 3 unspecified Status: Acute Assessment and Plan: Continue to monit
--- NOTE | 2020-12-05 11:26 | PCDIET ---
ICU Rounding Note: Patient tolerating Glucerna 1.2 at 50mL/hr goal rate with 30mL water flush every 4 hours. Last recorded weight is 114.7kg which is increased from last review. +I/O. Decreased urine output noted. Bowel Motility: FMS in place due to diarrhea. Labs Reviewed: Glu (214), Cr (1.6) Meds Noted: Diamox, Lipitor, Plavix, Ferrous Sulfate, Albuterol, Calcitriol, Colchicine, Novolog, Cefepime, Tricor, Fentanyl, Mag-Ox, Versed, Levophed, Protonix, Florastor, Vancomycin Additional Notes: Buttocks macerated. Following daily in ICU rounds. Assessing/reassessing every Wednesday/Wednesday.
[2020-12-05 11:42] LABS: Glucose Point of Care 208 (65-105)
[2020-12-05] MEDS: ACETAMINOPHEN 325 MG TABLET 650 MG PO (14:30)
--- NOTE | 2020-12-05 17:25 | PM.IMPN ---
Progress Note: A&P Assessment and Plan (1) CAD (coronary artery disease): Code(s): I25.10 - Atherosclerotic heart disease of [place] coronary artery without angina pectoris Status: Acute (2) Fever: Code(s): R50.9 - Fever, unspecified Status: Acute (3) Shock: Code(s): R57.9 - Shock, unspecified Status: Acute (4) Coag negative Staphylococcus bacteremia: Code(s): R78.81 - Bacteremia; B95.7 - Other staphylococcus as the cause of diseases classified elsewhere Status: Acute (5) Respiratory failure with hypoxia and hypercapnia: Code(s): J96.91 - Respiratory failure, unspecified with hypoxia; J96.92 - Respiratory failure, unspecified with hypercapnia Status: Acute (6) Seizure: Code(s): R56.9 - Unspecified convulsions Status: Acute (7) Atrial fibrillation with controlled ventricular response: Code(s): I48.91 - Unspecified atrial fibrillation Status: Acute (8) Aspiration pneumonia: Qualifiers: Aspiration pneumonia type: unspecified Laterality: bilateral Lung location: lower lobe of lung Qualified Code(s): J69.0 - Pneumonitis due to inhalation of food and vomit Code(s): J69.0 - Pneumonitis due to inhalation of food and vomit Status: Acute (9) Insulin dependent diabetes mellitus: Status: Acute (10) Chronic respiratory failure with hypoxia: Code(s): J96.11 - Chronic respiratory failure with hypoxia Status: Acute (11) Acute on chronic diastolic CHF (congestive heart failure): Code(s): I50.33 - Acute on chronic diastolic (congestive) heart failure Status: Acute (12) COPD exacerbation: Code(s): J44.1 - Chronic obstructive pulmonary disease with (acute) exacerbation Status: Acute Additional Plan Plan for patient to continue in ICU she remains intubated. No seizure activity since admission. Gentle diuresis continues, patient continues on antibiotic therapy with cefepime, unable to tolerate weaning at this time. defer to gravel screener vent management Patient to be transferred to [place] soon. Subjective Date/time seen: 12/05/20 17:25 Patient remains intubated off sedation trying weaning trials unsuccessful so far Exam Narrative: Exam Narrative: General: Off sedation HEENT: ET tube in place, no acute distress, neck is supple Cardio: S1-S2 no murmur Respiratory: Anterior chest wall without crackles or rhonchi GI: Soft nontender nondistended Neuro: Not following commands at present time Objective Data Vital Signs Vital Signs: Vital Signs - 24 hr 12/04/20 18:00 12/04/20 20:00 12/04/20 20:03 Temperature 98.5 F Pulse Rate 93 83 81 Respiratory Rate 12 15 Blood Pressure 129/82 122/48 L Pulse Oximetry 98 98 100 12/04/20 21:05 12/04/20 22:00 12/04/20 23:08 Temperature 98.9 F Pulse Rate 81 40 L 53 L Respiratory Rate 14 Blood Pressure 83/44 L Pulse Oximetry 99 95 100 12/04/20 23:32 12/04/20 23:49 12/05/20 00:00 Temperature Pulse Rate 63 41 L 51 L Respiratory Rate 12 Blood Pressure 71/39 L 138/49 L 109/42 L Pulse Oximetry 97 12/05/20 00:40 12/05/20 01:46 12/05/20 02:00 Temperature Pulse Rate 42 L 43 L 40 L Respiratory Rate Blood Pressure 109/40 L 113/50 L Pulse Oximetry 99 12/05/20 02:20 12/05/20 04:00 12/05/20 04:59 Temperature Pulse Rate 39 L 45 L Respiratory Rate 17 Blood Pressure 117/57 L 114/44 L Pulse Oximetry 100 100 12/05/20 06:00 12/05/20 06:49 12/05/20 08:00 Temperature 98.2 F Pulse Rate 50 L 48 L 48 L Respiratory Rate 17 21 H Blood Pressure 104/45 L 123/59 L 114/57 L Pulse Oximetry 100 100 12/05/20 08:25 12/05/20 08:43 12/05/20 09:39 Temperature Pulse Rate 46 L 51 L 49 L Respiratory Rate Blood Pressure 118/47 L 118/53 L Pulse Oximetry 100 12/05/20 10:00 12/05/20 10:12 12/05/20 11:40 Temperature Pulse Rate 48 L 77 77 Respiratory Rate 21 H Blood Pressure 108/
[2020-12-05 17:31] LABS: Glucose Point of Care 174 (65-105)
[2020-12-06] VITALS: BP 123/73; PULSE 79; RESP 16; TEMP 37.2; O2SAT 100
[2020-12-06 00:04] LABS: Glucose Point of Care 178 (65-105)
[2020-12-06 01:41] VITALS: PULSE 77; O2SAT 100
[2020-12-06 02:00] VITALS: BP 129/71; PULSE 77; RESP 20; O2SAT 100
[2020-12-06 04:00] VITALS: BP 128/65; PULSE 74; RESP 15; TEMP 37.1; O2SAT 100
[2020-12-06 04:50] VITALS: PULSE 70; O2SAT 100
[2020-12-06 05:06] LABS: Hematocrit 30.3 % (37.0-47.0); Hemoglobin 9.1 g/dL (12.0-15.0); Mean Corpuscular Hemoglobin 27.8 pg (26-34); Mean Corpuscular Volume 92.7 fl (80-100); Mean Platelet Volume 12.9 fl (7.4-10.4); Platelet Count Result 199 k/mm3 (150-375); Red Blood Count 3.27 M/mm3 (4.2-5.4); Red Cell Distribution Width 17.1 % (11.5-14.5)
[2020-12-06 05:13] LABS: Alveolar/Arterial O2 Gradient 72.1 mmHg; Base Excess ABG 7.5 mEq/l (+/-2.0); Carboxyhemoglobin 0.2 % THb (0-2.0); Fractional Inspired Oxygen 30 %; HCO3 ABG 32.2 mEq/l (22.0-26.0); Methemoglobin ABG 0.1 %THb (0-1.5); Oxygen Content ABG 16.7 %vol (16.0-22.0); Oxygen Saturation ABG 97.1 % (95.0-100.0); PCO2 ABG 45.7 mmHg (35.0-45.0); PO2 ABG 88.1 mmHg (80.0-100.0); PO2 FiO2 Ratio Arterial Blood 2.94 %; Reduced Hemoglobin 3.7 %THb (0-5.0); Total Hemoglobin 12.3 g/dL (12.0-18.0); pH ABG 7.466 (7.350-7.450)
[2020-12-06 05:14] LABS: Modified Allen's Test Pass; Site Drawn RIGHT RADIAL
[2020-12-06 05:15] LABS: Arterial Blood Gas PEEP 5 cmH2O; Arterial Blood Gas Tidal Volume 380 ml; Arterial Blood Gas Vent Mode CMV; Arterial Blood Gas Ventilator rate 12 /MIN; Device VENTILATOR
[2020-12-06 05:42] LABS: Alanine Aminotransferase 42 U/L (4-35); Albumin Level 2.5 g/dL (3.5-5.1); Alkaline Phosphatase 84 U/L (38-126); Anion Gap 3 mmol/L (8-16); Aspartate Amino Transferase 56 U/L (14-36); Bilirubin,Total 0.3 mg/dL (0.2-1.3); Blood Urea Nitrogen 25 mg/dL (7-17); Calcium 7.6 mg/dL (8.4-10.2); Carbon Dioxide 36 mmol/L (22-30); Chloride 101 mmol/L (98-107); Estimated CRCL calculation 40 ml/min; Estimated Glomerular Filt Rate 40; Glucose 147 mg/dL (65-105); Potassium 2.8 mmol/L (3.4-5.0); Sodium 140 mmol/L (137-145)
[2020-12-06] MEDS: CENTRAL LINE FLUSH 10 ML IV PUSH (05:50)
[2020-12-06] MEDS: POTASSIUM CHLORIDE 20 MEQ PACKET (FOR LIQUID) 40 MEQ FEED TUBE (05:55)
--- NOTE | 2020-12-06 06:26 | PC.NURSE ---
Patient transferred to [facility] via EMS, report updated to EDY JUDGE including recent AM potassium level and 40KCL given per G - tube at 0550.
--- NOTE | 2020-12-06 13:22 | PM.DS ---
DS: Admitting Diagnosis Admitting Diagnosis Admitting Diagnosis: (1)Acute on chronic diastolic CHF (congestive heart failure): (2) Multilobar lung infiltrate: (3) Chronic respiratory failure with hypoxia: (4) RONAL (obstructive sleep apnea): (5) Hypertension: (6) Hyperlipidemia: (7) Chronic kidney disease, stage 3: (8) Atrial fibrillation:Anticoagulated with apixaban (9) Insulin dependent diabetes mellitus: DS: Discharge Diagnosis Discharge Diagnosis (1) CAD (coronary artery disease): Code(s): I25.10 - Atherosclerotic heart disease of [place] coronary artery without angina pectoris Status: Acute (2) Seizure: Code(s): R56.9 - Unspecified convulsions Status: Acute (3) Shock: Code(s): R57.9 - Shock, unspecified Status: Acute (4) Respiratory failure with hypoxia and hypercapnia: Code(s): J96.91 - Respiratory failure, unspecified with hypoxia; J96.92 - Respiratory failure, unspecified with hypercapnia Status: Acute (5) Coag negative Staphylococcus bacteremia: Code(s): R78.81 - Bacteremia; B95.7 - Other staphylococcus as the cause of diseases classified elsewhere Status: Acute (6) Atrial fibrillation with controlled ventricular response: Code(s): I48.91 - Unspecified atrial fibrillation Status: Acute (7) Aspiration pneumonia: Qualifiers: Aspiration pneumonia type: unspecified Laterality: bilateral Lung location: lower lobe of lung Qualified Code(s): J69.0 - Pneumonitis due to inhalation of food and vomit Code(s): J69.0 - Pneumonitis due to inhalation of food and vomit Status: Acute (8) Insulin dependent diabetes mellitus: Status: Acute (9) Multilobar lung infiltrate: Code(s): R91.8 - Other nonspecific abnormal finding of lung field Status: Acute (10) Acute on chronic diastolic CHF (congestive heart failure): Code(s): I50.33 - Acute on chronic diastolic (congestive) heart failure Status: Acute (11) COPD exacerbation: Code(s): J44.1 - Chronic obstructive pulmonary disease with (acute) exacerbation Status: Acute (12) RONAL (obstructive sleep apnea): Code(s): G47.33 - Obstructive sleep apnea (adult) (pediatric) Status: Acute (13) Insulin dependent type 2 diabetes mellitus: Code(s): E11.9 - Type 2 diabetes mellitus without complications; Z79.4 - moth exterminator (current) use of insulin Status: Acute (14) Hypertension: Qualifiers: Hypertension type: unspecified Qualified Code(s): I10 - Essential (primary) hypertension Code(s): I10 - Essential (primary) hypertension Status: Chronic (15) Hyperlipidemia: Qualifiers: Hyperlipidemia type: unspecified Qualified Code(s): E78.5 - Hyperlipidemia, unspecified Code(s): E78.5 - Hyperlipidemia, unspecified Status: Chronic (16) Acute and chronic respiratory failure with hypercapnia: Code(s): J96.22 - Acute and chronic respiratory failure with hypercapnia Status: Acute (17) Pneumonia: Code(s): J18.9 - Pneumonia, unspecified organism Status: Acute (18) Chronic kidney disease, stage 3: Code(s): N18.30 - Chronic kidney disease, stage 3 unspecified Status: Acute (19) Morbid obesity with BMI of 40.0-44.9, adult: Code(s): E66.01 - Morbid (severe) obesity due to excess calories; Z68.41 - Body mass index [BMI]40.0-44.9, adult Status: Acute (20) Chronic anemia: Code(s): D64.9 - Anemia, unspecified Status: Chronic (21) Atrial fibrillation: Code(s): I48.91 - Unspecified atrial fibrillation Status: Acute DS: Summary Hospital Course Reason for hospitalization: [facility] [place] Hospital Course: 11/17/20 This is a 80-year-old female with past medical history significant for diastolic heart failure, obstructive sleep apnea on CPAP at night, chronic obstructive pulmonary disease, dyslipidemia ,gout, hypertension ,chronic kidne
== END 2020-12-06 06:15 | disposition short-term general hospital (02) | DRG 207 ==
LOC: ANHED 11-17 00:10 → ANH2MED 11-17 00:54 → ANHICU 12-09 13:43
PROVIDERS: Family Medicine; Internal Medicine; Internal Medicine Critical Care Medicine; Internal Medicine Infectious Disease; Specialist; Admitting Provider Internal Medicine; Emergency Provider Emergency Medicine; PCP Internal Medicine; Visit Provider Hospitalist
DX: J69.0 Pneumonitis due to inhalation of food and vomit (principal); I50.33 Acute on chronic diastolic (congestive) heart failure; J96.22 Acute and chronic respiratory failure with hypercapnia; G93.41 Metabolic encephalopathy; I13.0 Hypertensive heart and chronic kidney disease with heart failure and stage 1 through stage 4 chronic kidney disease, or unspecified chronic kidney disease; J96.11 Chronic respiratory failure with hypoxia; J44.1 Chronic obstructive pulmonary disease with (acute) exacerbation; R78.81 Bacteremia; Z68.41 Body mass index [BMI] 40.0-44.9, adult; R57.9 Shock, unspecified; R56.9 Unspecified convulsions; R50.9 Fever, unspecified; B95.7 Other staphylococcus as the cause of diseases classified elsewhere; Z99.81 Dependence on supplemental oxygen; E11.22 Type 2 diabetes mellitus with diabetic chronic kidney disease; N18.30 Chronic kidney disease, stage 3 unspecified; E11.42 Type 2 diabetes mellitus with diabetic polyneuropathy; E66.01 Morbid (severe) obesity due to excess calories; G47.33 Obstructive sleep apnea (adult) (pediatric); R91.8 Other nonspecific abnormal finding of lung field; K44.9 Diaphragmatic hernia without obstruction or gangrene; K21.9 Gastro-esophageal reflux disease without esophagitis; I25.10 Atherosclerotic heart disease of native coronary artery without angina pectoris; I44.7 Left bundle-branch block, unspecified; E78.5 Hyperlipidemia, unspecified; I48.91 Unspecified atrial fibrillation; M79.7 Fibromyalgia; M10.9 Gout, unspecified; D64.9 Anemia, unspecified; I25.2 Old myocardial infarction; Z79.01 Long term (current) use of anticoagulants; Z79.4 Long term (current) use of insulin; Z79.899 Other long term (current) drug therapy; Z86.16 Personal history of COVID-19; Z87.891 Personal history of nicotine dependence; Z95.5 Presence of coronary angioplasty implant and graft
CPT/HCPCS: 36415; 36600; 70450; 71045; 71046; 71250; 80048; 80053; 80202; 81001; 81003; 82375; 82565; 82805; 82948; 83036; 83050; 83605; 83735; 83880; 84100; 84145; 84443; 84484; 85025; 85027; 85055; 85610; 85730; 87040; 87070; 87077; 87086; 87088; 87186; 87205; 87324; 92610; 93005; 93306; 94002; 94003; 94640; 94667; 94668; 95816; 96365; 96366; 96367; 96374; 96375; 96376; 97110; 97116; 97161; 97165; 97530; 97535; 99285; A9270; C1751; C8929; C9113; G0378; J0295; J0456; J0461; J0692; J0696; J1120; J1815; J1940; J1953; J2060; J2250; J2405; J2704; J2930; J3010; J3370; J3475; J3480; J7040; J7050; Q9957